=== PATIENT | female | born 1980 | race Caucasian/White ===

== ENCOUNTER 2020-07-20 09:11 | Outpatient (REF) | payer MEDICARE, MEDICAID, SELFPAY ==
[2020-07-20 10:27] LABS: MANUAL DIFF FLAG NO
[2020-07-20 10:43] LABS: Basophils Percent Auto 0.4 % (0-2); Eosinophils Absolute Auto 0.1 X10*3/uL (0.0-0.4); Hematocrit 36.9 % (37-47); Hemoglobin 11.2 g/dl (12.0-16.0); Imm Gran Abs Auto 0.02 X10*3/uL (0.00-0.03); Imm Gran Pct Auto 0.3 % (0.0-0.4); Lymphocytes Absolute Auto 2.3 X10*3/uL (1.2-4.9); Lymphocytes Percent Auto 29.6 % (20-40); Mean Corpuscular HGB Conc 30.4 g/dl (31.0-35.0); Mean Corpuscular Hemoglobin 23.6 pg (27.0-33.0); Mean Corpuscular Volume 77.7 fL (80-98); Mean Platelet Volume 9.3 fL (9.4-12.3); Monocytes Absolute Auto 0.6 X10*3/uL (0.1-1.2); Monocytes Percent Auto 7.8 % (2-11); Neutrophils Absolute Auto 4.8 X10*3/uL (2.0-8.3); Neutrophils Percent Auto 60.9 % (45-73); Platelet Count 478 X10*3/uL (160-400); Red Blood Count 4.75 X10*6/uL (4.20-5.50); Red Cell Distribution Width 18.9 % (11.0-16.0); White Blood Count 7.8 X10*3/uL (4.8-10.8)
[2020-07-20 11:25] LABS: Thyroid Stimulating Hormone 2.48 uIU/mL (0.32-4.0)
== END 2020-07-20 09:12 | disposition home or self-care (01) ==
LOC: HO.LAB 09:11
PROVIDERS: Visit Provider Internal Medicine
DX: D50.9 Iron deficiency anemia, unspecified (principal); E03.9 Hypothyroidism, unspecified
CPT/HCPCS: 36415; 84443; 85025

== ENCOUNTER 2020-07-22 13:41 | Emergency (ER) | payer MEDICARE, MEDICAID, SELFPAY ==
[2020-07-22 14:49] VITALS: BP 132/68; PULSE 91; RESP 16; TEMP 36.6; O2SAT 100; BMI 35.6
[2020-07-22 15:09] LABS: Glucose Urine UA NEG (NEG); Leukocyte Esterase Urine 3+ (NEG); Nitrite Urine NEG (NEG); Urine Blood 1+ (NEG); Urine Ketones NEG (NEG); Urine Protein NEG (NEG-TRACE)
[2020-07-22 15:12] LABS: Appearance Urine CLEAR; Color Urine YELLOW
[2020-07-22 15:25] LABS: RBC Urine 0-2 /HPF (0)
[2020-07-22 15:26] LABS: Bacteria Urine 2+ /LPF; Squamous Epithelial Cell Urine 2+ /LPF
[2020-07-22 16:40] VITALS: BP 125/79; PULSE 82; RESP 16; TEMP 36.7; O2SAT 96
--- NOTE | 2020-07-22 16:48 | CT_ITS ---
EXAMINATION: CT ABDOMEN AND PELVIS WITH CONTRAST CLINICAL INFORMATION: Left upper quadrant pain status post gastric banding surgery COMPARISON: 07/18/2017 TECHNIQUE: Multidetector volumetric images were obtained from the superior aspect of the liver through the pubic symphysis following administration 85 mL of Omnipaque 350 intravenous contrast. Sagittal and coronal reformatted images were obtained on the technologist's workstation. Oral contrast: No This CT examination was performed using dose optimization techniques as appropriate, variously including the following: *Automated exposure control *Adjustment of mA and/or kV according to patient size (this includes techniques or standardized protocols for targeted exams where dose is matched to indication/reason for exam; i.e. extremities or head) *Use of iterative reconstruction technique DLP: 1146 mGy-cm FINDINGS: LUNG BASES: The visualized lung bases are unremarkable. LIVER, GALLBLADDER, AND BILIARY TREE: Changes of diffuse hepatic steatosis without focal abnormality. No biliary dilatation. Numerous gallstones within the gallbladder lumen without acute inflammatory changes. PANCREAS: Unremarkable. SPLEEN: Unremarkable. ADRENAL GLANDS: Unremarkable. KIDNEYS AND URETERS: The kidneys are normal in size, shape, and attenuation. No hydronephrosis, hydroureter, or calculi seen. No perinephric stranding. BLADDER: Unremarkable. GASTROINTESTINAL TRACT: Vertical banding gastroplasty changes. No discrete lesion. Gastrojejunostomy appears satisfactory. No obstruction or fluid collection. ABDOMINAL WALL: No significant hernia is appreciated. LYMPH NODES: Normal. VASCULAR: Unremarkable. PELVIC VISCERA: Large masslike expansion of the cervix extending to the lower uterine segment measuring up to at least 6.5 x 5.1 cm. No gross parametrial extension. OSSEOUS STRUCTURES: Unremarkable. CT/CT abdomen pelvis w con IMPRESSION: 1. Satisfactory postsurgical changes status post gastric bypass surgery. 2. Markedly abnormal appearance of the cervix which may be indicative of a cervical mass including carcinoma. TUBE DRAW HELPER assessment is indicated.
--- NOTE | 2020-07-22 16:49 | ED_ITS ---
HPI - Abdominal Pain General Chief Complaint: Abdominal Pain Stated Complaint: left side pain Time Seen by Provider: 07/22/20 16:33 Source: patient Mode of arrival: ambulatory Limitations: no limitations History of Present Illness HPI narrative: Patient comes emergency room complaining of left upper quadrant pain for 2 days. Patient states the pain started suddenly, sharp, nonradiating. Patient denies burning sensation. Patient had gastric pain and surgery done at [facility] in April 2020. Patient complaining of nausea, no vomiting or diarrhea, no fever MD elicited complaint: abdominal pain Related Data Previous Rx's Medication Instructions Recorded ondansetron HCl [Zofran] 4 mg PO Q6H PRN #14 tab 07/22/20 Allergies Allergy/AdvReac Type Severity Reaction Status Date / Time Penicillins Allergy Mild HIVES Verified 07/22/20 14:55 naproxen [NAPROXEN] Allergy Unknown BLEEDING Verified 07/22/20 14:55 penicillin V Allergy Unknown Hives Verified 07/22/20 14:55 Review of Systems Review of Systems Constitutional : No Weight loss, No Fever, No Chills, No Night Sweats, No Fatigue, No Malaise ENT/Mouth : No Hearing loss, No Ear Pain, No Nasal Congestion, No Sinus Pain, No Hoarseness, No sore throat, No Rhinorrhea, No Swallowing Difficulty Eyes: No Eye Pain, No Swelling, No Redness, No Foreign Body, No Discharge, No Vision Changes Cardiovascular : No Chest Pain, No SOB, No Dyspnea on Exertion, No Orthopnea, No Edema, No Palpitations Respiratory : No Cough, No Sputum, No Wheezing, No Smoke Exposure, No Dyspnea Gastrointestinal : No Nausea, No Vomiting, No Diarrhea, No Constipation, No abdominal Pain, No Hematochezia, No Melena Genitourinary : no irregular bleeding, No Dysuria, No Urinary Frequency, No Hematuria, No Urinary Incontinence, No Urgency, No Flank Pain, No Urinary Flow Changes, No Hesitancy Musculoskeletal : No joint pain, No Myalgias, No Joint Swelling Skin : No Skin Lesions, No rash Neuro : No Weakness, No Numbness, No Paresthesias, No Loss of Consciousness, No Dizziness, No Headache Psych : No Anxiety/Panic, No Depression, No SI/HI/AH/VH, No Social Issues, Heme/Lymph: No Bruising, No Bleeding,No Lymphadenopathy Endocrine : No Polyuria, No Polydipsia, No Temperature Intolerance Physical Exam Vital Signs: Vital Signs: Last Vital Signs Temp 98.1 F 07/22/20 16:40 Pulse 82 07/22/20 16:40 Resp 16 07/22/20 16:40 BP 125/79 07/22/20 16:40 Pulse Ox 96 07/22/20 16:40 Body Mass Index 35.6 Appearance: Alert. Oriented X3. No acute distress. Eyes: Pupils equal, round and reactive to light. ENT: Pharynx normal. Neck: Normal inspection. Neck supple. No lymph nodes noted. No crepitus CVS: Normal heart rate and rhythm. Pulses normal. Normal S1 and S2 Respiratory: No respiratory distress. Breath sounds normal. No Wheezing. No rales Abdomen: Soft and nontender. No rigidity. No distention. good BS x4 : Cervix appears normal, there is a large blood clot in the cervical oz Skin: Skin warm and dry. Normal skin color. Normal skin turgor. Extremities: No lower extremity edema. No lower extremity edema. No Lacerations. No Rash Neuro: Oriented X 3. No motor deficit. No sensory deficit. Moving all extermities. No slurred speech. Course Course Course Narrative: I discussed with the patient that on CT scan it was visualized that there was an abnormal masslike expansion in her cervix going into her uterus. Patient states she had Pap smear approximately 6 months ago, she was told that she tested positive for HPV. This is concerning that he may be an aggressive HPV strain, I discussed with the patient that she needs to follow up with OBGYN, On cervical exam, there was a large blood clot in the cervix, it was attempted to be removed with ring forceps. The sample obtained but it may be inaccurate due to the presence of the blood clot. Cultures and HPV was obtained. Patient states that she is at the end of her menstrual period. There is a possibility, that the mass like structure found in the cervix, may be a clot from residual menstrual blood/mucus. Patient understands the importance to follow-up with OBGYN as soon as possible. Patient instructed to call Dr. Barrera's office tomorrow to schedule an appointment MDM - Abdominal Pain Lab Data Result diagrams: 07/22/20 17:01 07/22/20 17:01 Labs: Lab Results 07/22/20 07/22/20 07/22/20 Range/Units 15:02 17:01 17:01 WBC 9.1 (4.8-10.8) X10*3/uL RBC 4.75 (4.20-5.50) X10*6/uL Hgb 11.4 L (12.0-16.0) g/dl Hct 36.8 L (37-47) % MCV 77.5 L (80-98) fL MCH 24.0 L (27.0-33.0) pg MCHC 31.0 (31.0-35.0) g/dl RDW 19.2 H (11.0-16.0) % Plt Count 464 H (160-400) X10*3/uL MPV 9.2 L (9.4-12.3) fL Immature Gran % (Auto) 0.1 (0.0-0.4) % Neut % (Auto) 66.1 (45-73) % Lymph % (Auto) 26.2 (20-40) % [place] % (Auto) 6.4 (2-11) % Eos % (Auto) 0.9 (0-4) % Baso % (Auto) 0.3 (0-2) % Lymph # (Auto) 2.4 (1.2-4.9) X10*3/uL [place] # (Auto) 0.6 (0.1-1.2) X10*3/uL Eos # (Auto) 0.1 (0.0-0.4) X10*3/uL Baso # (Auto) 0.0 (0.0-0.2) X10*3/uL Abs Immat Gran (auto) 0.01 (0.00-0.03) X10*3/uL Absolute Neuts (auto) 6.0 (2.0-8.3) X10*3/uL Absolute Nucleated RBC 0.000 (0.0-0.012) X10*3/uL Nucleated RBC % (auto) 0.0 (0.0-0.2) /100WBC Sodium 141 (135-145) mmol/L Potassium 4.3 (3.3-5.1) mmol/l Chloride 105 (96-108) mmol/L Carbon Dioxide 26 (22-29) mmol/L Anion Gap 14 (12-20) BUN 8 L (9-16) mg/dL Creatinine 0.66 (0.5-1.4) mg/dL Estim Creat Clear Calc 152.2 Estimated GFR > 60 Random Glucose 89 (60-115) mg/dL Calcium 9.1 (8.4-10.2) mg/dL Total Bilirubin 0.3 (0.0-1.0) mg/dL Direct Bilirubin 0.3 (0.0-0.5) mg/dL AST 19 (5-31) U/L ALT 18 (0-31) U/L Alkaline Phosphatase 128 H (39-117) U/L Total Protein 6.6 (6.5-8.0) g/dL Albumin 4.1 (3.5-5.0) g/dL Lipase 12 (8-78) U/L Urine Color YELLOW Urine Appearance CLEAR Urine pH 6.0 (5.0-8.0) Ur Specific [place] 1.020 (1.005-1.025) Urine Protein NEG (NEG-TRACE) MG/DL Urine Glucose (UA) NEG (NEG) MG/DL Urine Ketones NEG (NEG) MG/DL Urine Blood 1+ H (NEG) Urine Nitrite NEG (NEG) Ur Leukocyte Esterase 3+ H (NEG) Urine RBC 0-2 (0) /HPF Urine WBC 10-14 H (0-4) /HPF Ur Squamous Epith Cells 2+ /LPF Urine Bacteria 2+ /LPF Urine Test (NEGATIVE) 07/22/20 Range/Units 17:03 WBC (4.8-10.8) X10*3/uL RBC (4.20-5.50) X10*6/uL Hgb (12.0-16.0) g/dl Hct (37-47) % MCV (80-98) fL MCH (27.0-33.0) pg MCHC (31.0-35.0) g/dl RDW (11.0-16.0) % Plt Count (160-400) X10*3/uL MPV (9.4-12.3) fL Immature Gran % (Auto) (0.0-0.4) % Neut % (Auto) (45-73) % Lymph % (Auto) (20-40) % [place] % (Auto) (2-11) % Eos % (Auto) (0-4) % Baso % (Auto) (0-2) % Lymph # (Auto) (1.2-4.9) X10*3/uL [place] # (Auto) (0.1-1.2) X10*3/uL Eos # (Auto) (0.0-0.4) X10*3/uL Baso # (Auto) (0.0-0.2) X10*3/uL Abs Immat Gran (auto) (0.00-0.03) X10*3/uL Absolute Neuts (auto) (2.0-8.3) X10*3/uL Absolute Nucleated RBC (0.0-0.012) X10*3/uL Nucleated RBC % (auto) (0.0-0.2) /100WBC Sodium (135-145) mmol/L Potassium (3.3-5.1) mmol/l Chloride (96-108) mmol/L Carbon Dioxide (22-29) mmol/L Anion Gap (12-20) BUN (9-16) mg/dL Creatinine (0.5-1.4) mg/dL Estim Creat Clear Calc Estimated GFR Random Glucose (60-115) mg/dL Calcium (8.4-10.2) mg/dL Total Bilirubin (0.0-1.0) mg/dL Direct Bilirubin (0.0-0.5) mg/dL AST (5-31) U/L ALT (0-31) U/L Alkaline Phosphatase (39-117) U/L Total Protein (6.5-8.0) g/dL Albumin (3.5-5.0) g/dL Lipase (8-78) U/L Urine Color Cancelled Urine Appearance Cancelled Urine pH Cancelled (5.0-8.0) Ur Specific [place] Cancelled (1.005-1.025) Urine Protein Cancelled (NEG-TRACE) MG/DL Urine Glucose (UA) Cancelled (NEG) MG/DL Urine Ketones Cancelled (NEG) MG/DL Urine Blood Cancelled (NEG) Urine Nitrite Cancelled (NEG) Ur Leukocyte Esterase Cancelled (NEG) Urine RBC (0) /HPF Urine WBC (0-4) /HPF Ur Squamous Epith Cells /LPF Urine Bacteria /LPF Urine Test NEGATIVE (NEGATIVE) Imaging Data CT scan - abdomen: Radiologist's impression: LUNG BASES: The visualized lung bases are unremarkable. LIVER, GALLBLADDER, AND BILIARY TREE: Changes of diffuse hepatic steatosis without focal abnormality. No biliary dilatation. Numerous gallstones within the gallbladder lumen without acute inflammatory changes. PANCREAS: Unremarkable. SPLEEN: Unremarkable. ADRENAL GLANDS: Unremarkable. KIDNEYS AND URETERS: The kidneys are normal in size, shape, and attenuation. No hydronephrosis, hydroureter, or calculi seen. No perinephric stranding. BLADDER: Unremarkable. GASTROINTESTINAL TRACT: Vertical banding gastroplasty changes. No discrete lesion. Gastrojejunostomy appears satisfactory. No obstruction or fluid collection. ABDOMINAL WALL: No significant hernia is appreciated. LYMPH NODES: Normal. VASCULAR: Unremarkable. PELVIC VISCERA: Large masslike expansion of the cervix extending to the lower uterine segment measuring up to at least 6.5 x 5.1 cm. No gross parametrial extension. OSSEOUS STRUCTURES: Unremarkable. CT/CT abdomen pelvis w con IMPRESSION: 1. Satisfactory postsurgical changes status post gastric bypass surgery. 2. Markedly abnormal appearance of the cervix which may be indicative of a cervical mass including carcinoma. BINDING BENCH WORKER assessment is indicated. Discharge Plan Discharge Clinical Impression: Abdominal pain, Cervical mass Patient Disposition: Home, Self-Care Instructions: Abdominal Pain (ED) Additional Instructions: Please follow-up with Dr. Barrera. Please call his office tomorrow to schedule an appointment. Please also follow-up with your gastric sleeve surgeon. Please follow-up with your primary care physician tomorrow. If you have any worsening or new symptoms, please return to the emergency room or call 911 Prescriptions: New ondansetron HCl [Zofran] 4 mg tablet 4 mg PO Q6H PRN (Reason: nausea and vomiting) Qty: 14 RF: 0 Referrals: Abhinav Barrera MD [Physician] - 07/23/20 9:00 am [facility] Past Medical History Medical History (Updated 07/22/20 @ 19:37 by Jewels Segal MD) delivery delivered Surgical History (Updated 07/22/20 @ 14:53 by Joceline Pedro) Gastric bypass status for obesity Tubal ligation status Social History Social History Alcohol intake: never Smoking Status: Never smoker Use of substances other than those prescribed or required for medical reasons: No Advance Directives: No Advance Directives Information Provided: Yes
[2020-07-22] MEDS: ondansetron HCL 4 MG/2 ML VIAL IVPUSH (17:07)
[2020-07-22 17:08] LABS: MANUAL DIFF FLAG NO
[2020-07-22 17:10] LABS: Basophils Percent Auto 0.3 % (0-2); Eosinophils Absolute Auto 0.1 X10*3/uL (0.0-0.4); Eosinophils Percent Auto 0.9 % (0-4); Hematocrit 36.8 % (37-47); Hemoglobin 11.4 g/dl (12.0-16.0); Imm Gran Abs Auto 0.01 X10*3/uL (0.00-0.03); Imm Gran Pct Auto 0.1 % (0.0-0.4); Lymphocytes Absolute Auto 2.4 X10*3/uL (1.2-4.9); Lymphocytes Percent Auto 26.2 % (20-40); Mean Corpuscular Volume 77.5 fL (80-98); Mean Platelet Volume 9.2 fL (9.4-12.3); Monocytes Absolute Auto 0.6 X10*3/uL (0.1-1.2); Monocytes Percent Auto 6.4 % (2-11); Neutrophils Percent Auto 66.1 % (45-73); Platelet Count 464 X10*3/uL (160-400); Red Blood Count 4.75 X10*6/uL (4.20-5.50); Red Cell Distribution Width 19.2 % (11.0-16.0); White Blood Count 9.1 X10*3/uL (4.8-10.8)
[2020-07-22 17:25] LABS: Urine Pregnancy NEGATIVE (NEGATIVE)
[2020-07-22 17:26] LABS: UPreg QC Valid YES
[2020-07-22 17:37] LABS: Alanine Aminotransferase 18 U/L (0-31); Albumin Level 4.1 g/dL (3.5-5.0); Alkaline Phosphatase 128 U/L (39-117); Anion Gap 14 (12-20); Aspartate Amino Transferase 19 U/L (5-31); Bilirubin Direct 0.3 mg/dL (0.0-0.5); Bilirubin Total 0.3 mg/dL (0.0-1.0); Blood Urea Nitrogen 8 mg/dL (9-16); Calcium 9.1 mg/dL (8.4-10.2); Carbon Dioxide 26 mmol/L (22-29); Chloride 105 mmol/L (96-108); Creatinine Clr Calc Pharmacy 152.2; Estimated Glomerular Filt Rate > 60; Glucose Random 89 mg/dL (60-115); Lipase 12 U/L (8-78); Potassium 4.3 mmol/l (3.3-5.1); Sodium 141 mmol/L (135-145); Total Protein 6.6 g/dL (6.5-8.0)
[2020-07-22] MEDS: iohexoL 350 MG/ML 100 ML INFUS..BTL IV (18:09)
[2020-07-22] MEDS: Diatrizoate Meglumine, Sodium 30 ML SOLUTION PO (18:10)
[2020-07-22] MEDS: Lidocaine HCl Viscous 2 % 15 ML SOLUTION MUCOUS MEM (18:52)
[2020-07-22] MEDS: Magnesium Hydrox/Alum Hydrox 30 ML ORAL.SUSP PO (18:52)
[2020-07-22] MEDS: Prochlorperazine Edisylate 10 MG/2 ML VIAL IVPUSH (18:52)
--- NOTE | 2020-07-22 19:10 | PC.NURSE ---
Medicated for pain and nausea. Restult of C explained to Pt by . in room completing a pelvic exam now.
[2020-07-23 08:51] LABS: CT PCR NOT DETECTED (Not Detect.); NG PCR NOT DETECTED (Not Detect.)
[2020-07-23 08:54] LABS: BV Int Neg Control Negative (Negative); BV Int Pos Control Positive (Positive)
== END 2020-07-22 19:50 | disposition home or self-care (01) ==
PROVIDERS: Emergency Provider Emergency Medicine; PCP Internal Medicine
DX: R19.05 Periumbilic swelling, mass or lump (principal); R10.9 Unspecified abdominal pain; R11.0 Nausea; Z98.84 Bariatric surgery status; Z79.899 Other long term (current) drug therapy
CPT/HCPCS: 36415; 74177; 80048; 80076; 81001; 81025; 83690; 85025; 87086; 87480; 87491; 87510; 87591; 87624; 87660; 96374; 96375; 99284; J2405; Q9967

== ENCOUNTER 2020-07-29 06:03 | Emergency (ER) | payer MEDICARE, MEDICAID, SELFPAY ==
--- NOTE | 2020-07-29 | US_ITS ---
EXAMINATION: ULTRASOUND OF THE PELVIS CLINICAL INFORMATION: Pelvic mass.. COMPARISON: CT of the abdomen and pelvis done on 07/22/2020.. TECHNIQUE: Transabdominal and transvaginal pelvic ultrasound. Doppler evaluation including arterial as well as venous spectral Doppler waveforms and color Doppler were performed. FINDINGS: The uterus measures 11.3 x 6.2 x 6.3 cm. Corresponding to the prior CT study dated 07/22/2020, there is indeed a large heterogeneous solid hypervascular mass identified in the cervix, measures 5.9 x 5.5 x 4.5 cm. The endometrial thickness measures 0.9 cm. The ovaries bilaterally are visualized and appear normal, with the right ovary measuring 3.9 x 2.9 x 3.0 cm, volume 17.8 mL and the left ovary measuring 2.5 x 2.0 x 2.0 cm., volume of 5.8 mL. No adnexal mass or free fluid collection seen. A transvaginal study was performed in addition to the transabdominal study which did not yield an adequate examination of the uterus and ovaries due to superimposed distended gas-filled loops of bowel. US/US transvaginal IMPRESSION: 1. Concordant with prior CT study dated 07/22/2020, there is indeed a large heterogeneous solid 5.9 cm maximum dimension mass identified in the cervix. 2. Normal endometrial stripe and morphologically normal-appearing bilateral ovaries.
[2020-07-29 06:10] VITALS: BP 124/78; PULSE 81; RESP 16; TEMP 36.4; O2SAT 95; BMI 35.4
--- NOTE | 2020-07-29 07:04 | ED.ABDPAIN ---
HPI - Abdominal Pain General Chief Complaint: Abdominal Pain Stated Complaint: abd pain Time Seen by Provider: 07/29/20 07:04 Source: patient Mode of arrival: ambulatory Limitations: no limitations History of Present Illness HPI narrative: Patient is status post gastric sleeve surgery with revision was seen here on 07/22 for left-sided pain CT scan showed normal bowels but 6 x 5 cm mass at the cervix. Patient urine showed wbc's and request wrist but culture was negative and patient was not given any antibiotics patient comes here as pain continues with nausea pain is localized mostly in left upper quadrant no flank pain no fever no chills no urinary complaints no significant pelvic pain patient plan to see quality control engineering technician tomorrow patient been eating normal with normal bowel movements MD elicited complaint: abdominal pain Pertinent past history: none Onset (ago): week(s) (2) Pain Consistency: constant Location: LUQ Severity: mild Quality: dull Radiation: none Migration to: no migration Exacerbating factors: nothing Relieving factors: nothing Associated symptoms: nausea Related Data Previous Rx's Medication Instructions Recorded ondansetron HCl [Zofran] 4 mg PO Q6H PRN #14 tab 07/22/20 Allergies Allergy/AdvReac Type Severity Reaction Status Date / Time Penicillins Allergy Mild HIVES Verified 07/22/20 14:55 naproxen [NAPROXEN] Allergy Unknown BLEEDING Verified 07/22/20 14:55 penicillin V Allergy Unknown Hives Verified 07/22/20 14:55 Review of Systems Review of Systems Constitutional : No Weight loss, No Fever, No Chills ENT/Mouth : No sore throat, No Rhinorrhea Eyes: No Eye Pain, No Swelling Cardiovascular : No Chest Pain, no palpitations Respiratory : No Cough, No Sputum, no shortness of breath Gastrointestinal : + Nausea, No Vomiting, No Diarrhea, + abdominal Pain, no black stools Genitourinary : No Dysuria, No Urinary Frequency Musculoskeletal : No joint pain, No Myalgias, No Joint Swelling Skin : No Skin Lesions, No rash Neuro : No Weakness, No Numbness, No Dizziness, No Headache Psych : No Anxiety/Panic, No Depression Heme/Lymph: No Bruising, No Lymphadenopathy Endocrine : No Polyuria, No Polydipsia All other systems reviewed and are negative Physical Exam Vital Signs: Vital Signs: Last Vital Signs Temp 97.5 F 07/29/20 06:10 Pulse 81 07/29/20 06:10 Resp 16 07/29/20 06:10 BP 124/78 07/29/20 06:10 Pulse Ox 95 07/29/20 06:10 Body Mass Index 35.4 Appearance: Alert. Oriented X3. No acute distress. Eyes: Pupils equal, round and reactive to light. ENT: Pharynx normal. Neck: Normal inspection. Neck supple. CVS: Normal heart rate and rhythm. Pulses normal. Respiratory: No respiratory distress. Breath sounds normal. Abdomen: Soft L UQ mild tenderness, Bowel sounds are present, no mass palpable, no CVA tenderness Skin: Skin warm and dry. Normal skin color. Normal skin turgor. Extremities: No lower extremity edema. Neuro: Oriented X 3. No motor deficit. No sensory deficit. Course Course Course Narrative: Patient with nonspecific left upper quadrant pain urine shows bacteria although culture was negative last time and patient does not have symptoms of urinary tract infection when has significant leuko Estrace and bacteria will give a course of Cipro. Patient advised to follow-up with quality control engineering technician tomorrow as scheduled for growth on the cervix MDM - Abdominal Pain Lab Data Labs: Lab Results 07/29/20 Range/Units 08:26 Urine Color YELLOW Urine Appearance CLOUDY Urine pH 6.0 (5.0-8.0) Ur Specific [place] 1.025 (1.005-1.025) Urine Protein TRACE (NEG-TRACE) MG/DL Urine Glucose (UA) NEG (NEG) MG/DL Urine Ketones NEG (NEG) MG/DL Urine Blood 3+ H (NEG) Urine Nitrite NEG (NEG) Ur Leukocyte Esterase 1+ H (NEG) Urine RBC 1-4 (0) /HPF Urine WBC 10-14 H (0-4) /HPF Ur Squamous Epith Cells 3+ /LPF Calcium Oxalate Crystal 3+ /LPF Urine Bacteria 2+ /LPF Urine Mucus 1+ /LPF Discharge Plan Discharge Prescriptions: No Action ondansetron HCl [Zofran] 4 mg tablet 4 mg PO Q6H PRN (Reason: nausea and vomiting) Qty: 14 RF: 0 PMFSH Past Medical History Medical History delivery delivered Surgical History Gastric bypass status for obesity Tubal ligation status Social History Social History Alcohol intake: never Smoking Status: Never smoker Advance Directives: No Advance Directives Information Provided: No
--- NOTE | 2020-07-29 07:17 | US_ITS ---
EXAMINATION: ULTRASOUND OF THE PELVIS CLINICAL INFORMATION: Pelvic mass.. COMPARISON: CT of the abdomen and pelvis done on 07/22/2020.. TECHNIQUE: Transabdominal and transvaginal pelvic ultrasound. Doppler evaluation including arterial as well as venous spectral Doppler waveforms and color Doppler were performed. FINDINGS: The uterus measures 11.3 x 6.2 x 6.3 cm. Corresponding to the prior CT study dated 07/22/2020, there is indeed a large heterogeneous solid hypervascular mass identified in the cervix, measures 5.9 x 5.5 x 4.5 cm. The endometrial thickness measures 0.9 cm. The ovaries bilaterally are visualized and appear normal, with the right ovary measuring 3.9 x 2.9 x 3.0 cm, volume 17.8 mL and the left ovary measuring 2.5 x 2.0 x 2.0 cm., volume of 5.8 mL. No adnexal mass or free fluid collection seen. A transvaginal study was performed in addition to the transabdominal study which did not yield an adequate examination of the uterus and ovaries due to superimposed distended gas-filled loops of bowel. US/US pelvic complete IMPRESSION: 1. Concordant with prior CT study dated 07/22/2020, there is indeed a large heterogeneous solid 5.9 cm maximum dimension mass identified in the cervix. 2. Normal endometrial stripe and morphologically normal-appearing bilateral ovaries.
--- NOTE | 2020-07-29 07:47 | PC.NURSE ---
pt currently in ultrasound
[2020-07-29 08:34] LABS: Glucose Urine UA NEG (NEG); Leukocyte Esterase Urine 1+ (NEG); Nitrite Urine NEG (NEG); Specific Gravity - Urine 1.025 (1.005-1.025); UACC Culture Trigger YES; Urine Blood 3+ (NEG); Urine Ketones NEG (NEG); Urine Protein TRACE MG/DL (NEG-TRACE)
[2020-07-29 08:36] LABS: Appearance Urine CLOUDY; Color Urine YELLOW
[2020-07-29 08:43] LABS: Bacteria Urine 2+ /LPF; Calcium Oxalate Crystals Urine 3+ /LPF; Mucus Urine 1+ /LPF; Squamous Epithelial Cell Urine 3+ /LPF
[2020-07-29] MEDS: levoFLOXacin 500 MG TABLET PO (09:20)
== END 2020-07-29 09:27 | disposition home or self-care (01) ==
PROVIDERS: Emergency Provider Internal Medicine; PCP Internal Medicine
DX: R10.12 Left upper quadrant pain (principal); R11.2 Nausea with vomiting, unspecified; Z98.84 Bariatric surgery status; Z79.899 Other long term (current) drug therapy
CPT/HCPCS: 76830; 76856; 81001; 81003; 87086; 99283; 99284

== ENCOUNTER 2020-07-31 22:10 | Emergency (ER) | payer MEDICARE, MEDICAID, SELFPAY ==
[2020-07-31 23:16] VITALS: BP 117/78; PULSE 94; RESP 16; TEMP 36.6; O2SAT 97; BMI 35.4
--- NOTE | 2020-07-31 23:30 | PC.NURSE ---
PT TO ROOM WITH C/O CHEST PAIN . PT DENIES ANY OTHER COMPLAINTS. PT ALERT, RESPIRATIONS N/L. SKIN W/[place]. IN ROOM FOR EVAL.
[2020-08-01] VITALS: PULSE 91; RESP 18; O2SAT 97
--- NOTE | 2020-08-01 00:05 | PC.NURSE ---
IV PLACED TO LAC, LABS DRAWN TO LAB. NS UP AND RUNNING W/O, SITE INTACT.
--- NOTE | 2020-08-01 00:25 | PC.NURSE ---
PT URINATED IN BED WHEN USING THE URINAL. PT CLEANED UP AND CLEAN LINENS APPLIED AND PT MOVED TO HOSPITAL BED FOR COMFORT. VS OBTAINED AND WNL. PT ALERT, RESPIRATIONS EASY, N/L. SKIN W/D. WILL CONTINUE TO MONITOR PT. PT AWAITING FOR BED ASSIGNMENT.
--- NOTE | 2020-08-01 00:34 | XR_ITS ---
EXAMINATION: XR CHEST CLINICAL INFORMATION: Chest pain COMPARISON: 09/14/2018 TECHNIQUE: Frontal view of the chest was obtained. FINDINGS: No significant abnormality is noted involving the heart, lungs, mediastinum, bony thorax or soft tissues. Again seen are degenerative changes in the spine with scoliosis convex to the right. XR/XR chest 1V IMPRESSION: No acute intrathoracic disease.
--- NOTE | 2020-08-01 00:34 | ED_ITS ---
HPI - General Adult General Chief complaint: General Medical Stated complaint: CHEST PRESSURE Time Seen by Provider: 08/01/20 00:33 Source: patient Mode of arrival: ambulatory Limitations: no limitations History of Present Illness HPI narrative: 40-year-old female presented with mid chest pain that started 2 hours ago, described the pain as a sudden sharp stabbing pain moderate in intensity (5/10). in the mid of the chest radiated to the back, pain is constant for the past 2 hours, deep breath makes it worse, nothing make it better. Patient had no chest pain in the past. No other associated symptoms. Patient declined recent travel, no lower extremity swelling or pain, no personal or family history of DVT/PE, no personal family history of coronary artery disease at young age. Related Data Previous Rx's Medication Instructions Recorded ondansetron HCl [Zofran] 4 mg PO Q6H PRN #14 tab 07/22/20 ciprofloxacin HCl 500 mg PO BID #10 tab 07/29/20 Allergies Allergy/AdvReac Type Severity Reaction Status Date / Time Penicillins Allergy Mild HIVES Verified 07/22/20 14:55 naproxen [NAPROXEN] Allergy Unknown BLEEDING Verified 07/22/20 14:55 penicillin V Allergy Unknown Hives Verified 07/22/20 14:55 Review of Systems Review of Systems: All other systems are reviewed and are negative Constitutional: Reports as per HPI and Reports no additional constitutional complaints Eyes: Reports as per HPI and Reports no additional eye complaints Reports system reviewed and no additional complaints, except as documented Cardiovascular: Reports as per HPI and Reports no additional cardiovascular complaints Respiratory: Reports as per HPI and Reports no additional respiratory complaints Gastrointestinal: Reports as per HPI and Reports no additional gastrointestinal complaints Genitourinary: Reports no additional female genitourinary complaints Musculoskeletal: Reports no additional musculoskeletal complaints Skin/Breast: Reports system reviewed and no additional complaints, except as docu Psychiatric: Reports no additional psychiatric complaints Endocrine: Reports no additional endocrine complaints Hematologic/Lymphatic: Reports no additional hematologic/lymphatic complaints Allergic/Immunologic: Reports no additional allergic/immunologic complaints Reports system reviewed and no additional complaints, except as documented and Reports Abnormal speech present [facility] Past Medical History Medical History delivery delivered Surgical History Gastric bypass status for obesity Tubal ligation status Social History Social History Alcohol intake: never Smoking Status: Never smoker Advance Directives: No Physical Exam Vital Signs: Vital Signs: Last Vital Signs Temp 97.8 F 07/31/20 23:16 Pulse 80 08/01/20 02:00 Resp 18 08/01/20 02:00 BP 117/78 07/31/20 23:16 Pulse Ox 98 08/01/20 02:00 Body Mass Index 35.4 Vital signs have been reviewed as normal and appeared to be correct. Blood pressure normal. Heart rate normal. Respiration rate normal. Temperature normal. Oxygen saturation normal. Appearance: Alert. Oriented X3. No acute distress. Head: Normal external exam. Normocephalic. Atraumatic. No [place]arez signs noted. No raccoon eyes noted Eyes: PERRLA. EOMI. Conjunctiva and sclera normal. Eyelids normal. ENT: EAC normal. TM's Normal. Pharynx normal. Uvula midline. Moist mucous membranes. No trismus noted. No drooling noted. No muffled voice noted. Neck: Normal inspection. Neck supple. FROM. No adenopathy. Thyroid Normal. No meningeal signs. No neck mass noted. CVS: Normal heart rate and rhythm. Heart sound normal. No murmurs noted. Pulses normal throughout. Respiratory: No respiratory distress. Painless inspiration. Breath sounds normal. No wheezes/rales/rhonchi noted. Chest nontender. No accessory muscle usage noted or decreased air movement noted. Abdomen: Soft and nontender. Bowel sounds normal in all 4 quadrants. No distention noted. No organomegaly noted. No visible injury noted. Back: No CVA tenderness. Full range of motion noted. Skin: Skin warm and dry. Normal skin color. Normal skin turgor. No rashes/lesions/lacerations noted. Extremities: No lower extremity edema. Extremities exhibit normal range of motion. Extremities nontender. Neuro: Oriented X 3. No motor deficit. No sensory deficit. Reflexes normal. Course Course Course Narrative: Assessment and plan. 40-year-old female presented with chest pain before arrival, patient had unremarkable chest pain workup in the emergency department, patient with HEART score of 0, patient now feels better will discharge the patient to follow-up with PCP. Medical Decision Making Lab Data Lab results reviewed: Yes I reviewed the patient's lab results. Result diagrams: 08/01/20 00:57 08/01/20 00:57 Labs: Lab Results 08/01/20 08/01/20 08/01/20 Range/Units 00:48 00:57 00:57 WBC 9.2 (4.8-10.8) X10*3/uL RBC 4.56 (4.20-5.50) X10*6/uL Hgb 11.3 L (12.0-16.0) g/dl Hct 35.7 L (37-47) % MCV 78.3 L (80-98) fL MCH 24.8 L (27.0-33.0) pg MCHC 31.7 (31.0-35.0) g/dl RDW 18.8 H (11.0-16.0) % Plt Count 395 (160-400) X10*3/uL MPV 9.3 L (9.4-12.3) fL Immature Gran % (Auto) 0.2 (0.0-0.4) % Neut % (Auto) 58.9 (45-73) % Lymph % (Auto) 32.0 (20-40) % [place] % (Auto) 7.5 (2-11) % Eos % (Auto) 1.1 (0-4) % Baso % (Auto) 0.3 (0-2) % Lymph # (Auto) 3.0 (1.2-4.9) X10*3/uL [place] # (Auto) 0.7 (0.1-1.2) X10*3/uL Eos # (Auto) 0.1 (0.0-0.4) X10*3/uL Baso # (Auto) 0.0 (0.0-0.2) X10*3/uL Abs Immat Gran (auto) 0.02 (0.00-0.03) X10*3/uL Absolute Neuts (auto) 5.4 (2.0-8.3) X10*3/uL Absolute Nucleated RBC 0.000 (0.0-0.012) X10*3/uL Nucleated RBC % (auto) 0.0 (0.0-0.2) /100WBC D-Dimer < 200 NG/ML Sodium (135-145) mmol/L Potassium (3.3-5.1) mmol/l Chloride (96-108) mmol/L Carbon Dioxide (22-29) mmol/L Anion Gap (12-20) BUN (9-16) mg/dL Creatinine (0.5-1.4) mg/dL Estim Creat Clear Calc Estimated GFR Random Glucose (60-115) mg/dL Calcium (8.4-10.2) mg/dL Total Bilirubin (0.0-1.0) mg/dL Direct Bilirubin (0.0-0.5) mg/dL AST (5-31) U/L ALT (0-31) U/L Alkaline Phosphatase (39-117) U/L Troponin I High Sens (<3.5-17.0) ng/L Total Protein (6.5-8.0) g/dL Albumin (3.5-5.0) g/dL Lipase (8-78) U/L Urine Color YELLOW Urine Appearance CLEAR Urine pH 6.0 (5.0-8.0) Ur Specific [place] >= 1.030 H (1.005-1.025) Urine Protein NEG (NEG-TRACE) MG/DL Urine Glucose (UA) NEG (NEG) MG/DL Urine Ketones NEG (NEG) MG/DL Urine Blood NEG (NEG) Urine Nitrite NEG (NEG) Ur Leukocyte Esterase NEG (NEG) Urine Test NEGATIVE (NEGATIVE) 08/01/20 08/01/20 08/01/20 Range/Units 00:57 00:57 03:32 WBC (4.8-10.8) X10*3/uL RBC (4.20-5.50) X10*6/uL Hgb (12.0-16.0) g/dl Hct (37-47) % MCV (80-98) fL MCH (27.0-33.0) pg MCHC (31.0-35.0) g/dl RDW (11.0-16.0) % Plt Count (160-400) X10*3/uL MPV (9.4-12.3) fL Immature Gran % (Auto) (0.0-0.4) % Neut % (Auto) (45-73) % Lymph % (Auto) (20-40) % [place] % (Auto) (2-11) % Eos % (Auto) (0-4) % Baso % (Auto) (0-2) % Lymph # (Auto) (1.2-4.9) X10*3/uL [place] # (Auto) (0.1-1.2) X10*3/uL Eos # (Auto) (0.0-0.4) X10*3/uL Baso # (Auto) (0.0-0.2) X10*3/uL Abs Immat Gran (auto) (0.00-0.03) X10*3/uL Absolute Neuts (auto) (2.0-8.3) X10*3/uL Absolute Nucleated RBC (0.0-0.012) X10*3/uL Nucleated RBC % (auto) (0.0-0.2) /100WBC D-Dimer NG/ML Sodium 139 (135-145) mmol/L Potassium 3.8 (3.3-5.1) mmol/l Chloride 105 (96-108) mmol/L Carbon Dioxide 23 (22-29) mmol/L Anion Gap 15 (12-20) BUN 8 L (9-16) mg/dL Creatinine 0.69 (0.5-1.4) mg/dL Estim Creat Clear Calc 145.3 Estimated GFR > 60 Random Glucose 95 (60-115) mg/dL Calcium 8.8 (8.4-10.2) mg/dL Total Bilirubin 0.4 (0.0-1.0) mg/dL Direct Bilirubin < 0.2 (0.0-0.5) mg/dL AST 20 (5-31) U/L ALT 23 (0-31) U/L Alkaline Phosphatase 111 (39-117) U/L Troponin I High Sens < 3.5 < 3.5 (<3.5-17.0) ng/L Total Protein 6.4 L (6.5-8.0) g/dL Albumin 4.0 (3.5-5.0) g/dL Lipase 33 (8-78) U/L Urine Color Urine Appearance Urine pH (5.0-8.0) Ur Specific [place] (1.005-1.025) Urine Protein (NEG-TRACE) MG/DL Urine Glucose (UA) (NEG) MG/DL Urine Ketones (NEG) MG/DL Urine Blood (NEG) Urine Nitrite (NEG) Ur Leukocyte Esterase (NEG) Urine Test (NEGATIVE) Imaging Data Chest x-ray: Radiologist's impression: No acute intrathoracic disease. ECG Data Interpretation: Normal sinus rhythm at 80 beats per minutes, normal axis deviation, normal intervals, no ST-T changes. Discharge Plan Discharge Clinical Impression: Chest pain Qualifiers: Chest pain type: unspecified Qualified Code(s): R07.9 - Chest pain, unspecified Patient Disposition: Home, Self-Care Instructions: Chest Pain (ED) Prescriptions: No Action ondansetron HCl [Zofran] 4 mg tablet 4 mg PO Q6H PRN (Reason: nausea and vomiting) Qty: 14 RF: 0 ciprofloxacin HCl 500 mg tablet 500 mg PO BID Qty: 10 RF: 0 Referrals: Zaheer Madden MD [Primary Care Provider] - 2 days
[2020-08-01] MEDS: 0.9 % Sodium Chloride 1,000 ML 999 ML IVCONT (01:01)
[2020-08-01 01:08] LABS: MANUAL DIFF FLAG NO
[2020-08-01 01:20] LABS: Glucose Urine UA NEG (NEG); Leukocyte Esterase Urine NEG (NEG); Nitrite Urine NEG (NEG); Specific Gravity - Urine >= 1.030 (1.005-1.025); Urine Blood NEG (NEG); Urine Ketones NEG (NEG); Urine Protein NEG (NEG-TRACE)
[2020-08-01 01:22] LABS: Appearance Urine CLEAR; Color Urine YELLOW; UPreg QC Valid YES; Urine Pregnancy NEGATIVE (NEGATIVE)
[2020-08-01 01:32] LABS: Basophils Percent Auto 0.3 % (0-2); Eosinophils Absolute Auto 0.1 X10*3/uL (0.0-0.4); Eosinophils Percent Auto 1.1 % (0-4); Hematocrit 35.7 % (37-47); Hemoglobin 11.3 g/dl (12.0-16.0); Imm Gran Abs Auto 0.02 X10*3/uL (0.00-0.03); Imm Gran Pct Auto 0.2 % (0.0-0.4); Mean Corpuscular HGB Conc 31.7 g/dl (31.0-35.0); Mean Corpuscular Hemoglobin 24.8 pg (27.0-33.0); Mean Corpuscular Volume 78.3 fL (80-98); Mean Platelet Volume 9.3 fL (9.4-12.3); Monocytes Absolute Auto 0.7 X10*3/uL (0.1-1.2); Monocytes Percent Auto 7.5 % (2-11); Neutrophils Absolute Auto 5.4 X10*3/uL (2.0-8.3); Neutrophils Percent Auto 58.9 % (45-73); Platelet Count 395 X10*3/uL (160-400); Red Blood Count 4.56 X10*6/uL (4.20-5.50); Red Cell Distribution Width 18.8 % (11.0-16.0); White Blood Count 9.2 X10*3/uL (4.8-10.8)
[2020-08-01 01:39] LABS: D Dimer < 200 NG/ML
[2020-08-01 01:49] LABS: Troponin-I High Sensitivity < 3.5 ng/L (<3.5-17.0)
[2020-08-01 02:00] VITALS: PULSE 80; RESP 18; O2SAT 98
--- NOTE | 2020-08-01 02:59 | PC.NURSE ---
PT RESTING IN STRETCHER PLAYING A GAME ON HER PHONE. PT AWAITING FOR PENDING LABS. AWARE.
[2020-08-01 03:13] LABS: Alanine Aminotransferase 23 U/L (0-31); Alkaline Phosphatase 111 U/L (39-117); Anion Gap 15 (12-20); Aspartate Amino Transferase 20 U/L (5-31); Bilirubin Direct < 0.2 mg/dL (0.0-0.5); Bilirubin Total 0.4 mg/dL (0.0-1.0); Blood Urea Nitrogen 8 mg/dL (9-16); Calcium 8.8 mg/dL (8.4-10.2); Carbon Dioxide 23 mmol/L (22-29); Chloride 105 mmol/L (96-108); Creatinine Clr Calc Pharmacy 145.3; Estimated Glomerular Filt Rate > 60; Glucose Random 95 mg/dL (60-115); Lipase 33 U/L (8-78); Potassium 3.8 mmol/l (3.3-5.1); Sodium 139 mmol/L (135-145); Total Protein 6.4 g/dL (6.5-8.0)
--- NOTE | 2020-08-01 03:37 | PC.NURSE ---
2ND TROPONIN DRAWN TO LAB FOR EVAL. PT STATES IM FEELING NAUSEATED PT REQUESTING CRACKERS. PT AWAITING FOR PENDING LABS.
[2020-08-01 04:04] LABS: Troponin-I High Sensitivity < 3.5 ng/L (<3.5-17.0)
--- NOTE | 2020-08-01 04:45 | PC.NURSE ---
IV REMOVED INTACT. PT VERBALIZED U/S OF D/C INSTRUCTIONS AND LEFT ED AMB WITH STEADY EVEN GAIT TO WR.
--- NOTE | 2020-08-01 08:05 | ECG_ITS ---
Test Reason : CHEST PAIN Blood Pressure : / mmHG Vent. Rate : 080 BPM Atrial Rate : 080 BPM P-R Int : 156 ms QRS Dur : 082 ms QT Int : 400 ms P-R-T Axes : 005 028 025 degrees QTc Int : 461 ms Normal sinus rhythm Normal ECG When compared with ECG of 14-SEP-2018 21:24, No significant change was found Referred By: Andrea Carlin Electronically Signed By:Lucas Rudd
== END 2020-08-01 04:45 | disposition home or self-care (01) ==
PROVIDERS: Emergency Provider Emergency Medicine; PCP Internal Medicine
DX: R07.9 Chest pain, unspecified (principal); Z98.84 Bariatric surgery status
CPT/HCPCS: 36415; 71045; 80048; 80076; 81003; 81025; 83690; 84484; 85025; 85379; 93005; 96360; 99284

== ENCOUNTER 2020-10-22 04:05 | Emergency (ER) | payer MEDICARE, MEDICAID, SELFPAY ==
[2020-10-22 04:31] VITALS: BP 129/74; PULSE 72; RESP 18; TEMP 37; O2SAT 98; BMI 32.9
--- NOTE | 2020-10-22 04:48 | ED_ITS ---
HPI - Extremity Injury (Lower) General Chief Complaint: Extremity Injury, Lower Stated Complaint: BLISTER ON TOE Time Seen by Provider: 10/22/20 04:42 Source: patient Mode of arrival: ambulatory Limitations: no limitations History of Present Illness HPI Narrative: Patient comes to emergency room complaining of pain in the great toe on the right side. Two weeks ago patient had a pedicure, now the toe on 1 side hurts, looks swollen, red, tender to touch. Patient denies fever. Only 1 side of the toenail hurts Related Data Home Medications Medication Instructions Recorded Confirmed cholecalciferol (vitamin D3) 25 mcg PO DAILY 10/22/20 10/22/20 [Vitamin D3] doxepin 50 mg PO DAILY 10/22/20 10/22/20 ferrous sulfate 324 mg PO DAILY 10/22/20 10/22/20 lamotrigine 150 mg PO DAILY 10/22/20 10/22/20 multivitamin cap 10/22/20 olanzapine [Zyprexa] 20 mg PO DAILY 10/22/20 10/22/20 ondansetron 4 mg PO Q6H PRN 10/22/20 10/22/20 pantoprazole 40 mg PO DAILY 10/22/20 10/22/20 verapamil 40 mg PO DAILY 10/22/20 10/22/20 Previous Rx's Medication Instructions Recorded sulfamethoxazole-trimethoprim 1 tab PO BID #14 tab 10/22/20 [Bactrim DS] Allergies Allergy/AdvReac Type Severity Reaction Status Date / Time Penicillins Allergy Mild HIVES Verified 10/22/20 05:03 naproxen [NAPROXEN] Allergy Unknown BLEEDING Verified 10/22/20 05:03 penicillin V Allergy Unknown Hives Verified 10/22/20 05:03 Review of Systems 2 Review of Systems: Constitutional : No Weight loss, No Fever, No Chills, No Night Sweats, No Fatigue, No Malaise ENT/Mouth : No Hearing loss, No Ear Pain, No Nasal Congestion, No Sinus Pain, No Hoarseness, No sore throat, No Rhinorrhea, No Swallowing Difficulty Eyes: No Eye Pain, No Swelling, No Redness, No Foreign Body, No Discharge, No Vision Changes Cardiovascular : No Chest Pain, No SOB, No Dyspnea on Exertion, No Orthopnea, No Edema, No Palpitations Respiratory : No Cough, No Sputum, No Wheezing, No Smoke Exposure, No Dyspnea Gastrointestinal : No Nausea, No Vomiting, No Diarrhea, No Constipation, No abdominal Pain, No Hematochezia, No Melena Genitourinary : no irregular bleeding, No Dysuria, No Urinary Frequency, No Hematuria, No Urinary Incontinence, No Urgency, No Flank Pain, No Urinary Flow Changes, No Hesitancy Musculoskeletal : No joint pain, No Myalgias, No Joint Swelling Skin : Pain on the lateral aspect of the great toe and swelling and redness Neuro : No Weakness, No Numbness, No Paresthesias, No Loss of Consciousness, No Dizziness, No Headache Psych : No Anxiety/Panic, No Depression, No SI/HI/AH/VH, No Social Issues, Heme/Lymph: No Bruising, No Bleeding,No Lymphadenopathy Endocrine : No Polyuria, No Polydipsia, No Temperature Intolerance PMF Past Medical History Medical History delivery delivered Surgical History Gastric bypass status for obesity Tubal ligation status Social History Social History Alcohol intake: never Smoking Status: Never smoker Advance Directives: No Advance Directives Information Provided: No Physical Exam Vital Signs: Vital Signs: Last Vital Signs Temp 98.6 F 10/22/20 04:31 Pulse 72 10/22/20 04:31 Resp 18 10/22/20 04:31 BP 129/74 10/22/20 04:31 Pulse Ox 98 10/22/20 04:31 Body Mass Index 32.9 Appearance: Alert. Oriented X3. No acute distress. Eyes: Pupils equal, round and reactive to light. ENT: Pharynx normal. Neck: Normal inspection. Neck supple. No lymph nodes noted. No crepitus CVS: Normal heart rate and rhythm. Pulses normal. Normal S1 and S2 Respiratory: No respiratory distress. Breath sounds normal. No Wheezing. No rales Abdomen: Soft and nontender. No rigidity. No distention. good BS x4 Skin: Skin warm and dry. Paronychia on the right great toe lateral aspect and subungual hematoma, difficult to evaluate due to nail Kisw[place]ili, proximal aspect of nail has no nail Kisw[place]ili Extremities: No lower extremity edema. No lower extremity edema. No Lacerations. No Rash Neuro: Oriented X 3. No motor deficit. No sensory deficit. Moving all extermities. No slurred speech. Course Course Course Narrative: Patient was given a digital block with 2% lidocaine with no epinephrine. Patient tolerated well the block. The paronychia was drained, a 0.5 cm incision done lateral to the nail, scant amount of pus was drained, through the same incision, the subungual hematoma drained as well. I discussed with the patient that it is likely that she will lose her toenail. Patient given 1st dose of antibiotics in the emergency room, patient instructed to follow-up with her primary care physician Procedures Abscess I/D Site: foot (Paronychia on right great toe) Side (if applicable): right Local Anesthetic: lidocaine 2% Amount of anesthesia used (mL): 3 Technique: incised with blade Sent for culture/gram staining?: No Irrigation: No Packing used?: none Complications: pain Discharge Plan Discharge Clinical Impression: Paronychia, Subungual hematoma Patient Disposition: Home, Self-Care Instructions: Paronychia (ED) Additional Instructions: Please follow-up with your primary care physician tomorrow. If you have any worsening or new symptoms, please return to the emergency room or call 911 Prescriptions: New sulfamethoxazole-trimethoprim [Bactrim DS] 800-160 mg tablet 1 tab PO BID Qty: 14 RF: 0 No Action lamotrigine 150 mg Tablet 150 mg PO DAILY RF: 0 doxepin 50 mg Capsule 50 mg PO DAILY RF: 0 verapamil 40 mg Tablet 40 mg PO DAILY RF: 0 pantoprazole 40 mg Tablet,Delayed Release (Dr/Ec) 40 mg PO DAILY RF: 0 ondansetron 4 mg Tablet,Disintegrating 4 mg PO Q6H PRN (Reason: Nausea And Vomiting) RF: 0 multivitamin Capsule RF: 0 olanzapine [Zyprexa] 20 mg Tablet 20 mg PO DAILY RF: 0 cholecalciferol (vitamin D3) [Vitamin D3] 25 mcg (1,000 unit) Capsule 25 mcg PO DAILY RF: 0 ferrous sulfate 324 mg (65 mg iron) Tablet,Delayed Release (Dr/Ec) 324 mg PO DAILY RF: 0
[2020-10-22] MEDS: Lidocaine HCl 2 % MPF 5 ML VIAL INFILTRATI (05:02)
--- NOTE | 2020-10-22 05:38 | PC.NURSE ---
at bedside to drain right big toe hematoma. pt tolerated procedure well. toe wrapped in gauze and reinforced with gauze wrap. plan for PO antibiotics and discharge. pt aware of plan of care, no questions or concerns at this time.
== END 2020-10-22 05:48 | disposition home or self-care (01) ==
LOC: HO.ED 04:56
PROVIDERS: Emergency Provider Emergency Medicine; PCP Internal Medicine
DX: L03.031 Cellulitis of right toe (principal); S90.421A Blister (nonthermal), right great toe, initial encounter; M79.674 Pain in right toe(s); X58.XXXA Exposure to other specified factors, initial encounter; Y93.9 Activity, unspecified; Y92.9 Unspecified place or not applicable; Y99.9 Unspecified external cause status; Z98.84 Bariatric surgery status; Z79.899 Other long term (current) drug therapy
CPT/HCPCS: 10060; 99283; 99284

== ENCOUNTER 2020-11-05 04:14 | Emergency (ER) | payer MEDICARE, MEDICAID, SELFPAY ==
[2020-11-05 04:58] VITALS: BP 124/74; PULSE 90; RESP 16; O2SAT 99; BMI 33.6
--- NOTE | 2020-11-05 05:10 | ED.LOWEXIN ---
HPI - Extremity Injury (Lower) General Chief Complaint: Extremity Injury, Lower Stated Complaint: ? Toe Nail Infection Time Seen by Provider: 11/05/20 05:03 Source: patient Mode of arrival: ambulatory Limitations: no limitations History of Present Illness HPI Narrative: 40-year-old female who presents emergency department for evaluation of right great toe pain. The patient was seen in the emergency department on 10/22/2020 for a right great toe paronychia L abscess and subungual hematoma. The abscess and subungual hematoma was drained. The patient was treated with Bactrim and she states she completed the course of antibiotics. She states that over the last 1-2 days she has noticed increased pain in the right great toe and her right great toenail is nail lifted off the nail bed and is painful. She has not noticed any swelling or redness of the great toe. She denies fever, chills, fatigue or weakness. Related Data Home Medications Medication Instructions Recorded Confirmed cholecalciferol (vitamin D3) 25 mcg PO DAILY 10/22/20 10/22/20 [Vitamin D3] doxepin 50 mg PO DAILY 10/22/20 10/22/20 ferrous sulfate 324 mg PO DAILY 10/22/20 10/22/20 lamotrigine 150 mg PO DAILY 10/22/20 10/22/20 multivitamin cap 10/22/20 olanzapine [Zyprexa] 20 mg PO DAILY 10/22/20 10/22/20 ondansetron 4 mg PO Q6H PRN 10/22/20 10/22/20 pantoprazole 40 mg PO DAILY 10/22/20 10/22/20 verapamil 40 mg PO DAILY 10/22/20 10/22/20 Previous Rx's Medication Instructions Recorded sulfamethoxazole-trimethoprim 1 tab PO BID #14 tab 10/22/20 [Bactrim DS] Allergies Allergy/AdvReac Type Severity Reaction Status Date / Time Penicillins Allergy Mild HIVES Verified 10/22/20 05:03 naproxen [NAPROXEN] Allergy Unknown BLEEDING Verified 10/22/20 05:03 penicillin V Allergy Unknown Hives Verified 10/22/20 05:03 Review of Systems Review of Systems: Yes all other systems are reviewed and are negative PMFSH Past Medical History PMFSH Narrative: She denies tobacco, alcohol or drug use. Medical History delivery delivered Surgical History Gastric bypass status for obesity Tubal ligation status Social History Social History Alcohol intake: never Smoking Status: Never smoker Advance Directives: No Physical Exam Vital Signs: Vital Signs: Last Vital Signs Pulse 90 11/05/20 04:58 Resp 16 11/05/20 04:58 BP 124/74 11/05/20 04:58 Pulse Ox 99 11/05/20 04:58 Body Mass Index 33.6 Const: General: cooperative and healthy appearing Orientation/consciousness: oriented to person and oriented to place Limitations: no limitations HENMT: Head: Yes normal to inspection, Yes normocephalic and Yes atraumatic Resp: Effort & Inspection: normal respiratory effort Neuro: General: oriented to person and oriented to place Extrem: Other: The patient's right great toenail is lifted off the nail bed lateral but still medially, there is no purulent drainage noted. Course Course Course Narrative: 40-year-old female who presents emergency department for evaluation of right great toe pain, she was seen and treated in the ED 10/22/2020 for right great toe paronychia abscess and subungual hematoma. The patient's exam at this time revealed that the patient's toenail is partially avulsed most likely secondary to the subungual hematoma. The patient's right great toe was anesthetized with lidocaine using digital block and the toenail was removed. The underlying nail bed is intact and does not appear to be infected. There does appear to be a nail starting to grow back from the nail plate. The great toe nail bed was dressed with bacitracin and a gauze dressing, the patient was given verbal and printed instructions discharged home. Procedures Procedure Narrative Procedure Narrative: Right great toenail removal: I did discuss the toe nail removal procedure with the patient and she gave me informed verbal consent to proceed. The patient's toe was prepped with Betadine and then anesthetized with 1% lidocaine times 10 cc, digital block was used. After the toe was anesthetized, using a scalp all and hemostats I was able to remove the toenail with only minimal bleeding. The nail bed is covered with bacitracin and dressed with a gauze dressing. Patient was advised to remove the dressing in 24 hours and apply bacitracin twice a day for 1 week. She was advised to follow-up with PCP and return if there is any signs of infection. Discharge Plan Discharge Clinical Impression: Avulsed toenail Patient Disposition: Home, Self-Care Additional Instructions: Your toenail was removed. Apply bacitracin twice a day to the nail bed for 1 week to help prevent infection Keep the toenail cover with gauze or a bandage. Watch for signs of infection which would include increased pain, redness, swelling, drainage of pus or red streaks going away from the wound Take ibuprofen 200 mg pills, 3 pills every 6 hours as needed for pain. Take Tylenol (acetaminophen) 500 mg pills, 2 pills every 4 to 6 hours as needed for pain. Follow-up with your doctor in 2 days. Please return to the emergency department if your symptoms get worse or if you develop any symptoms that are concerning to you. Prescriptions: No Action lamotrigine 150 mg Tablet 150 mg PO DAILY RF: 0 doxepin 50 mg Capsule 50 mg PO DAILY RF: 0 verapamil 40 mg Tablet 40 mg PO DAILY RF: 0 pantoprazole 40 mg Tablet,Delayed Release (Dr/Ec) 40 mg PO DAILY RF: 0 ondansetron 4 mg Tablet,Disintegrating 4 mg PO Q6H PRN (Reason: Nausea And Vomiting) RF: 0 multivitamin Capsule RF: 0 olanzapine [Zyprexa] 20 mg Tablet 20 mg PO DAILY RF: 0 cholecalciferol (vitamin D3) [Vitamin D3] 25 mcg (1,000 unit) Capsule 25 mcg PO DAILY RF: 0 ferrous sulfate 324 mg (65 mg iron) Tablet,Delayed Release (Dr/Ec) 324 mg PO DAILY RF: 0 sulfamethoxazole-trimethoprim [Bactrim DS] 800-160 mg tablet 1 tab PO BID Qty: 14 RF: 0
[2020-11-05] MEDS: Lidocaine HCl 1 % MPF 5 ML VIAL 10 ML INFILTRATI (06:09)
[2020-11-05] MEDS: Bacitracin Oint 0.9 GM PACKET 1 APPL TOPICAL (06:09)
== END 2020-11-05 06:10 | disposition home or self-care (01) ==
PROVIDERS: Emergency Provider Emergency Medicine Emergency Medical Services; PCP Internal Medicine
DX: S91.201A Unspecified open wound of right great toe with damage to nail, initial encounter (principal); M79.671 Pain in right foot; X58.XXXA Exposure to other specified factors, initial encounter; Y93.9 Activity, unspecified; Y92.9 Unspecified place or not applicable; Y99.9 Unspecified external cause status; Z79.899 Other long term (current) drug therapy
CPT/HCPCS: 11730; 99283

== ENCOUNTER 2020-11-14 09:30 | Outpatient (REF) | payer MEDICARE, MEDICAID, SELFPAY ==
[2020-11-14 10:12] LABS: COVID-19 Test Negative (Negative); IDNOW Serial# 55D5AD1C
== END 2020-11-14 09:31 | disposition home or self-care (01) ==
LOC: HO.LAB 09:30
PROVIDERS: Visit Provider Internal Medicine
DX: Z20.822 Contact with and (suspected) exposure to COVID-19 (principal)
CPT/HCPCS: 36415; 87635; C9803

== ENCOUNTER 2020-12-20 20:16 | Emergency (ER) | payer MEDICARE, MEDICAID, SELFPAY ==
--- NOTE | ~2020-12-20 | US_ITS ---
EXAMINATION: US VENOUS ULTRASOUND WITH DOPPLER LOWER EXTREMITY, LEFT CLINICAL INFORMATION: Left posterior thigh pain COMPARISON: 11/01/2017 TECHNIQUE: Ultrasound of the deep veins is performed from the hip to the calf with compression sonography and color and pulse Doppler assessment. Spectral analysis with color-flow imaging is performed. FINDINGS: There is normal venous compression and respiratory variation and augmented flow. The visualized common femoral vein, superficial femoral vein, profunda femoral vein, popliteal vein, and the trifurcation region shows no evidence of deep venous thrombosis. There is no significant popliteal fossa cyst. If the patient's symptoms persist, followup ultrasound in 5 days 7 days might be of value to exclude proximal propagation from a non-visualized calf vein. US/US venous duplex LE LT IMPRESSION: No DVT demonstrated in the left lower extremity.
[2020-12-20 20:25] VITALS: BP 122/69; PULSE 89; RESP 18; TEMP 36.8; O2SAT 99; BMI 32.6
--- NOTE | 2020-12-20 21:58 | ED_ITS ---
HPI - Extremity Problem General Chief complaint: Extremity Problem Stated complaint: lower back pain Time Seen by Provider: 12/20/20 21:42 Source: patient Mode of arrival: ambulatory History of Present Illness HPI Narrative: This is a 40-year-old female who presents with onset of left, posterior thigh pain that is sharp in nature and radiates down the back of her leg the became worse today. She denies attempts to utilize fcra-skj-phoravj analgesics or stretching [employer]. No recent history of long car rides or plane trips, hemoptysis, estrogen supplementation, personal history of cancer, recent surgery or bed bound state, calf pain or calf swelling. Related Data Home Medications Medication Instructions Recorded Confirmed cholecalciferol (vitamin D3) 25 mcg PO DAILY 10/22/20 10/22/20 [Vitamin D3] doxepin 50 mg PO DAILY 10/22/20 10/22/20 ferrous sulfate 324 mg PO DAILY 10/22/20 10/22/20 lamotrigine 150 mg PO DAILY 10/22/20 10/22/20 multivitamin cap 10/22/20 olanzapine [Zyprexa] 20 mg PO DAILY 10/22/20 10/22/20 ondansetron 4 mg PO Q6H PRN 10/22/20 10/22/20 pantoprazole 40 mg PO DAILY 10/22/20 10/22/20 verapamil 40 mg PO DAILY 10/22/20 10/22/20 Previous Rx's Medication Instructions Recorded sulfamethoxazole-trimethoprim 1 tab PO BID #14 tab 10/22/20 [Bactrim DS] Allergies Allergy/AdvReac Type Severity Reaction Status Date / Time Penicillins Allergy Mild HIVES Verified 12/20/20 21:11 naproxen [NAPROXEN] Allergy Unknown BLEEDING Verified 12/20/20 21:11 penicillin V Allergy Unknown Hives Verified 12/20/20 21:11 Review of Systems Review of Systems: Pertinent positives and negatives as stated in HPI 10 point review of systems is otherwise negative. [facility] Past Medical History Source: nursing notes reviewed Medical History delivery delivered Surgical History Gastric bypass status for obesity Tubal ligation status Social History Social History Alcohol intake: never Advance Directives: No Advance Directives Information Provided: No Patient : No Physical Exam Vital Signs: Vital Signs: Last Vital Signs Temp 98.3 F 12/20/20 20:25 Pulse 89 12/20/20 20:25 Resp 18 12/20/20 20:25 BP 122/69 12/20/20 20:25 Pulse Ox 99 12/20/20 20:25 Body Mass Index 32.6 VITAL SIGNS: Reviewed. GENERAL: Well developed, well nourished, in no acute distress. HEAD: Normocephalic/atraumatic EYES: PERRLA, EOMI OROPHARYNX: no oral lesions noted, posterior pharynx clear NECK: Supple, no adenopathy LUNGS: Normal breath sounds. No adventitious sounds or accessory muscle use. SpO2<99> CARDIOVASCULAR: Regular rate and rhythm without noted murmurs ABDOMEN: Soft, non-tender, non-distended with bowel sounds. LEFT LOWER EXTREMITY: Point tenderness without cord noted at left posterior thigh no noted difference in calf size and no associated erythema or induration appreciated NEUROLOGIC: Alert and oriented x 4. Strength and sensation to light touch were grossly intact x 4. Course Course Course Narrative: 40-year-old female with history and clinical presentation consistent with likely hamstring strain and less likely DVT. Review of all results negative for acute findings, these results were discussed with patient at bedside as well as receiving counseling for measures to address muscle strain. She was discharged home in stable condition. Discharge Plan Discharge Clinical Impression: Left hamstring muscle strain Patient Disposition: Home, Self-Care Instructions: Muscle Strain (ED) Additional Instructions: 1. Tylenol 1000 mg, orally, every 6 hours as needed for pain control. Do not exceed 4000 mg within 24 hours. 2. Ibuprofen 400 mg, orally with milk or food, every 6 hours as needed for pain control. You may take this in combination with the Tylenol for additional symptom relief. 3. Continue to stretch the posterior muscles of your lower left leg. Return to the ER for any acute worsening of symptoms. Prescriptions: No Action lamotrigine 150 mg Tablet 150 mg PO DAILY RF: 0 doxepin 50 mg Capsule 50 mg PO DAILY RF: 0 verapamil 40 mg Tablet 40 mg PO DAILY RF: 0 pantoprazole 40 mg Tablet,Delayed Release (Dr/Ec) 40 mg PO DAILY RF: 0 ondansetron 4 mg Tablet,Disintegrating 4 mg PO Q6H PRN (Reason: Nausea And Vomiting) RF: 0 multivitamin Capsule RF: 0 olanzapine [Zyprexa] 20 mg Tablet 20 mg PO DAILY RF: 0 cholecalciferol (vitamin D3) [Vitamin D3] 25 mcg (1,000 unit) Capsule 25 mcg PO DAILY RF: 0 ferrous sulfate 324 mg (65 mg iron) Tablet,Delayed Release (Dr/Ec) 324 mg PO DAILY RF: 0 sulfamethoxazole-trimethoprim [Bactrim DS] 800-160 mg tablet 1 tab PO BID Qty: 14 RF: 0 Referrals: Zaheer Madden MD [Primary Care Provider] - 2 days
[2020-12-21] VITALS: BP 117/74; PULSE 82; RESP 17; TEMP 36.9; O2SAT 100
== END 2020-12-21 00:13 | disposition home or self-care (01) ==
PROVIDERS: Emergency Provider Student in an Organized Health Care Education/Training Program; PCP Internal Medicine
DX: S76.312A Strain of muscle, fascia and tendon of the posterior muscle group at thigh level, left thigh, initial encounter (principal); M79.652 Pain in left thigh; X58.XXXA Exposure to other specified factors, initial encounter; Y93.9 Activity, unspecified; Y92.9 Unspecified place or not applicable; Y99.9 Unspecified external cause status
CPT/HCPCS: 93971; 99284

== ENCOUNTER 2021-02-07 09:35 | Outpatient (REF) | payer MEDICARE, MEDICAID, SELFPAY | END 2021-02-07 09:36 | disposition home or self-care (01) | LOC: HO.LAB 09:35 | PROVIDERS: PCP Internal Medicine; Visit Provider Internal Medicine | DX: Z20.822 Contact with and (suspected) exposure to COVID-19 (principal) | CPT/HCPCS: C9803; U0003; U0005 ==

== ENCOUNTER 2021-02-07 19:28 | Emergency (ER) | payer MEDICARE, MEDICAID, SELFPAY ==
[2021-02-07 19:45] VITALS: BP 116/55; PULSE 83; RESP 18; TEMP 36.9; O2SAT 98; BMI 32.8
[2021-02-07 20:49] LABS: Influenza A PCR NEGATIVE (Negative); Influenza B PCR NEGATIVE (Negative); Resp Syncy Virus RNA Qual PCR NEGATIVE (Negative); SARS COV2 PCR INHOUSE POSITIVE (Negative)
--- NOTE | 2021-02-07 21:17 | ED_ITS ---
HPI - URI/Sore Throat General Chief Complaint: Upper Respiratory Symptoms Stated Complaint: flu like Time Seen by Provider: 02/07/21 20:31 Source: patient Mode of arrival: ambulatory Limitations: no limitations History of Present Illness HPI Narrative: 40-year-old female here with complaints of 24 hours of dry cough, feeling lightheaded and diarrhea. Boyfriend at home is COVID positive. No fevers, chills, abdominal pain, vomiting, shortness of breath. No fevers chills Received COVID vaccine [employer] (1st dose november, 2nd dose december) at [facility]. Related Data Home Medications Medication Instructions Recorded Confirmed cholecalciferol (vitamin D3) 25 25 mcg PO DAILY 10/22/20 10/22/20 mcg (1,000 unit) capsule (Vitamin D3) doxepin 50 mg capsule 50 mg PO DAILY 10/22/20 10/22/20 ferrous sulfate 324 mg (65 mg 324 mg PO DAILY 10/22/20 10/22/20 iron) tablet,delayed release lamotrigine 150 mg tablet 150 mg PO DAILY 10/22/20 10/22/20 multivitamin cap 10/22/20 olanzapine 20 mg tablet (Zyprexa) 20 mg PO DAILY 10/22/20 10/22/20 ondansetron 4 mg disintegrating 4 mg PO Q6H PRN 10/22/20 10/22/20 tablet pantoprazole 40 mg tablet,delayed 40 mg PO DAILY 10/22/20 10/22/20 release verapamil 40 mg tablet 40 mg PO DAILY 10/22/20 10/22/20 Previous Rx's Medication Instructions Recorded sulfamethoxazole 800 1 tab PO BID #14 tab 10/22/20 mg-trimethoprim 160 mg tablet (Bactrim DS) Allergies Allergy/AdvReac Type Severity Reaction Status Date / Time Penicillins Allergy Mild HIVES Verified 02/07/21 19:45 naproxen [NAPROXEN] Allergy Unknown BLEEDING Verified 02/07/21 19:45 penicillin V Allergy Unknown Hives Verified 02/07/21 19:45 Review of Systems Review of Systems: Yes all other systems are reviewed and are negative Constitutional: Constitutional: Reports no additional constitutional complaints, Denies body ache(s), Denies chills, Denies fever(s), Denies headache(s) and Denies weakness Eyes: Eyes: Reports no additional eye complaints and Denies change in vision ENT: Reports system reviewed and no additional complaints, except as documented, Reports dizziness, Denies headache(s), Denies nasal congestion, Denies nasal discharge and Denies neck pain Cardiovascular: Cardiovascular: Reports no additional cardiovascular complaints, Denies chest pain, Denies leg edema and Denies dyspnea Respiratory: Respiratory: Reports no additional respiratory complaints, Reports cough and Denies dyspnea Gastrointestinal: Gastrointestinal: Reports no additional gastrointestinal complaints, Denies abdominal pain, Reports diarrhea, Denies nausea and Denies vomiting Genitourinary: Genitourinary: Reports no additional female genitourinary complaints and Denies urinary incontinence Musculoskeletal: Musculoskeletal: Reports no additional musculoskeletal compl aints, Denies back pain, Denies arthralgias, Denies joint swelling, Denies neck pain, Denies numbness and Denies tingling Integumentary/Breasts: Skin/Breast: Reports system reviewed and no additional complaints, except as docu and Denies rash Neurologic: Denies Abnormal speech present, Reports dizziness, Denies hea dache(s), Denies numbness, Denies tingling and Denies weakness PMFSH Past Medical History Attestation statement: The following information was validated with the patient. Source: old records reviewed and nursing notes reviewed Medical History Anxiety Bipolar 1 disorder delivery delivered PTSD (post-traumatic stress disorder) Surgical History Gastric bypass status for obesity Tubal ligation status Social History Social History Alcohol intake: never Advance Directives: No Advance Directives Information Provided: No Patient : No Physical Exam Vital Signs: Vital Signs: Last Vital Signs Temp 98.5 F 02/07/21 19:45 Pulse 83 02/07/21 19:45 Resp 18 02/07/21 19:45 BP 116/55 L 02/07/21 19:45 Pulse Ox 98 02/07/21 19:45 Body Mass Index 32.8 Const: General: cooperative, healthy appearing, comfortable and no acute distress Orientation/consciousness: patient oriented x3 Limitations: no limitations HENMT: Head: Yes normal to inspection Ears: hearing grossly normal bilaterally General nose exam: Normal external nose present Face and sinus: Yes normal facial exam Mouth: Normal oral and palatal mucosa present Throat: Yes posterior oropharynx normal Eyes: General: appearance normal, both eyes and all related structures Pupils: Equal, round and reactive pupils present Neck: Neck: Yes normal visual inspection Chest: Chest palpation & inspection: normal inspection of the chest Resp: Effort & Inspection: normal respiratory effort Auscultation: clear to auscultation bilaterally Cardio: Rate: regular rate Rhythm: regular rhythm Peripheral pulses: Peripheral pulses 2+ throughout GI: Inspection: Yes normal to inspection Palpation (GI): Soft to palpation and nontender Auscultation: normal bowel sounds Back/Spine/Pelvis: Thoracic/Lumbar Spine: thoracic and lumbar spine normal to inspection Skin: General skin exam: no rashes or lesions noted Neuro: General: patient oriented x3, no focal motor deficits and normal sensation to monofilament Cranial nerves: Yes Equal, round and reactive pupils present Cognition (Neuro): normal cognition Speech: No Abnormal speech present Gait exam (Neuro): Normal gait present Motor exam (neuro): 5/5 motor strength present throughout Extrem: General: Yes normal to inspection Course Course Course Narrative: 40-year-old female here with feeling lightheaded, cough and with 2 episodes of diarrhea in the last 24 hours. Boyfriend at home is COVID positive. Will send COVID screen. 2100-COVID screen positive. Patient is well-appearing. Hemodynamically stable. No focal abdominal pain. Clear lung sounds. Stable saturations. Reviewed worrisome signs of when to return to the emergency department. Comfortable discharge home. MDM - URI/Sore Throat Medical Records Attestation: I reviewed the patient's medical records. Lab Data Attestation: I reviewed the patient's lab results. Labs: Lab Results 02/07/21 Range/Units 19:57 Coronavirus (PCR) POSITIVE A (Negative) Influenza Type A (PCR) NEGATIVE (Negative) Influenza Type B (PCR) NEGATIVE (Negative) RSV RNA Qual (PCR) NEGATIVE (Negative) Discharge Plan Discharge Clinical Impression: COVID-19 Patient Disposition: Home, Self-Care Instructions: COVID-19 (Coronavirus Disease 2019) (ED) Additional Instructions: Per the CDC you must quarantine for 10 days and your symptoms must be resolved for 24 hours prior to return to work and play Prescriptions: No Action lamotrigine 150 mg Tablet 150 mg PO DAILY RF: 0 doxepin 50 mg Capsule 50 mg PO DAILY RF: 0 verapamil 40 mg Tablet 40 mg PO DAILY RF: 0 pantoprazole 40 mg Tablet,Delayed Release (Dr/Ec) 40 mg PO DAILY RF: 0 ondansetron 4 mg Tablet,Disintegrating 4 mg PO Q6H PRN (Reason: Nausea And Vomiting) RF: 0 multivitamin Capsule RF: 0 olanzapine [Zyprexa] 20 mg Tablet 20 mg PO DAILY RF: 0 cholecalciferol (vitamin D3) [Vitamin D3] 25 mcg (1,000 unit) Capsule 25 mcg PO DAILY RF: 0 ferrous sulfate 324 mg (65 mg iron) Tablet,Delayed Release (Dr/Ec) 324 mg PO DAILY RF: 0 sulfamethoxazole-trimethoprim [Bactrim DS] 800-160 mg tablet 1 tab PO BID Qty: 14 RF: 0 Referrals: Zaheer Madden MD [Primary Care Provider] - 2 days Interventions: ED Discharge Assessment Last Done: 02/07/21 21:19
== END 2021-02-07 21:22 | disposition home or self-care (01) ==
PROVIDERS: Emergency Provider Emergency Medicine; PCP Internal Medicine
DX: U07.1 COVID-19 (principal); R05 Cough; Z79.899 Other long term (current) drug therapy
CPT/HCPCS: 0241U; 36415; 99283

== ENCOUNTER 2021-02-22 08:52 | Outpatient (REF) | payer MEDICARE, MEDICAID, SELFPAY | END 2021-02-22 08:53 | disposition home or self-care (01) | LOC: HO.LAB 08:52 | PROVIDERS: PCP Internal Medicine; Visit Provider Internal Medicine | DX: Z20.822 Contact with and (suspected) exposure to COVID-19 (principal) | CPT/HCPCS: U0003; U0005 ==

== ENCOUNTER 2021-03-11 03:29 | Emergency (ER) | payer MEDICARE, MEDICAID, SELFPAY ==
[2021-03-11 03:36] VITALS: BP 112/70; PULSE 92; RESP 16; TEMP 36.7; O2SAT 96; BMI 32.6
[2021-03-11 03:57] LABS: Glucose Urine UA NEG (NEG); Leukocyte Esterase Urine 2+ (NEG); Nitrite Urine NEG (NEG); Specific Gravity - Urine 1.015 (1.005-1.025); UACC Culture Trigger YES; Urine Blood 3+ (NEG); Urine Ketones NEG (NEG); Urine Protein 1+ MG/DL (NEG-TRACE)
[2021-03-11 03:57] LABS: Basophils Percent Auto 0.4 % (0-2); Eosinophils Absolute Auto 0.1 X10*3/uL (0.0-0.4); Eosinophils Percent Auto 0.8 % (0-4); Hematocrit 31.7 % (37-47); Hemoglobin 9.9 g/dl (12.0-16.0); Imm Gran Abs Auto 0.02 X10*3/uL (0.00-0.03); Imm Gran Pct Auto 0.2 % (0.0-0.4); Lymphocytes Absolute Auto 2.9 X10*3/uL (1.2-4.9); Lymphocytes Percent Auto 35.5 % (20-40); MANUAL DIFF FLAG NO; Mean Corpuscular HGB Conc 31.2 g/dl (31.0-35.0); Mean Corpuscular Hemoglobin 23.3 pg (27.0-33.0); Mean Corpuscular Volume 74.6 fL (80-98); Monocytes Absolute Auto 0.7 X10*3/uL (0.1-1.2); Monocytes Percent Auto 8.8 % (2-11); Neutrophils Absolute Auto 4.5 X10*3/uL (2.0-8.3); Neutrophils Percent Auto 54.3 % (45-73); Platelet Count 333 X10*3/uL (160-400); Red Blood Count 4.25 X10*6/uL (4.20-5.50); Red Cell Distribution Width 15.2 % (11.0-16.0); White Blood Count 8.3 X10*3/uL (4.8-10.8)
[2021-03-11 03:58] LABS: Appearance Urine HAZY; Color Urine YELLOW
[2021-03-11 04:00] LABS: UPreg QC Valid YES; Urine Pregnancy NEGATIVE (NEGATIVE)
[2021-03-11 04:03] LABS: Bacteria Urine 1+ /LPF; Squamous Epithelial Cell Urine 1+ /LPF
[2021-03-11 04:14] LABS: Anion Gap 12 (12-20); Blood Urea Nitrogen 7 mg/dL (9-16); Calcium 9.2 mg/dL (8.4-10.2); Carbon Dioxide 22 mmol/L (22-29); Chloride 109 mmol/L (96-108); Creatinine Clr Calc Pharmacy 133.6; Estimated Glomerular Filt Rate > 60; Glucose Random 88 mg/dL (60-115); Potassium 3.8 mmol/L (3.3-5.1); Sodium 139 mmol/L (135-145)
--- NOTE | 2021-03-11 04:50 | ED_ITS ---
HPI - Female Genitourinary General Chief complaint: Vaginal Bleeding Stated complaint: vaginal bleeding/ fibroid in uterus Time Seen by Provider: 03/11/21 04:30 Source: patient Mode of arrival: ambulatory Limitations: no limitations History of Present Illness HPI Narrative: Patient comes to emergency room complaining of heavy vaginal bleeding. Patient states that she is known to have fibroids. Patient has been seen by her OBGYN who prescribed her control pills a few days ago. Patient states that the pharmacy called her and let her know that the control pills and the lamotrigine that the patient takes have an interaction, OCPs decrease the lamotrigine concentration in the body and effectiveness, patient takes it for mood stabilization. Therefore, patient decided not to take this medicine. Patient states that over last 2 hours the vaginal bleeding has increased, states she needs a new pad every 15 minutes. Patient denies feeling dizzy, no shortness of breath, no weakness. No chest pain. Related Data Home Medications Medication Instructions Recorded Confirmed cholecalciferol (vitamin D3) 25 25 mcg PO DAILY 10/22/20 10/22/20 mcg (1,000 unit) capsule (Vitamin D3) doxepin 50 mg capsule 50 mg PO DAILY 10/22/20 10/22/20 ferrous sulfate 324 mg (65 mg 324 mg PO DAILY 10/22/20 10/22/20 iron) tablet,delayed release lamotrigine 150 mg tablet 150 mg PO DAILY 10/22/20 10/22/20 multivitamin cap 10/22/20 olanzapine 20 mg tablet (Zyprexa) 20 mg PO DAILY 10/22/20 10/22/20 ondansetron 4 mg disintegrating 4 mg PO Q6H PRN 10/22/20 10/22/20 tablet pantoprazole 40 mg tablet,delayed 40 mg PO DAILY 10/22/20 10/22/20 release verapamil 40 mg tablet 40 mg PO DAILY 10/22/20 10/22/20 Previous Rx's Medication Instructions Recorded sulfamethoxazole 800 1 tab PO BID #14 tab 10/22/20 mg-trimethoprim 160 mg tablet (Bactrim DS) nitrofurantoin 100 mg PO Q12H 7 Days #14 cap 03/11/21 monohydrate/macrocrystals 100 mg capsule (Macrobid) tranexamic acid 650 mg tablet 650 mg PO BID 5 Days #10 tab 03/11/21 Allergies Allergy/AdvReac Type Severity Reaction Status Date / Time Penicillins Allergy Mild HIVES Verified 03/11/21 03:36 naproxen [NAPROXEN] Allergy Unknown BLEEDING Verified 03/11/21 03:36 penicillin V Allergy Unknown Hives Verified 03/11/21 03:36 Review of Systems Review of Systems: Constitutional : No Weight loss, No Fever, No Chills, No Night Sweats, No Fatigue, No Malaise ENT/Mouth : No Hearing loss, No Ear Pain, No Nasal Congestion, No Sinus Pain, No Hoarseness, No sore throat, No Rhinorrhea, No Swallowing Difficulty Eyes: No Eye Pain, No Swelling, No Redness, No Foreign Body, No Discharge, No Vision Changes Cardiovascular : No Chest Pain, No SOB, No Dyspnea on Exertion, No Orthopnea, No Edema, No Palpitations Respiratory : No Cough, No Sputum, No Wheezing, No Smoke Exposure, No Dyspnea Gastrointestinal : No Nausea, No Vomiting, No Diarrhea, No Constipation, No abdominal Pain, No Hematochezia, No Melena Genitourinary : Heavy vaginal bleeding, No Dysuria, No Urinary Frequency, No Hematuria, No Urinary Incontinence, No Urgency, No Flank Pain, No Urinary Flow Changes, No Hesitancy Musculoskeletal : No joint pain, No Myalgias, No Joint Swelling Skin : No Skin Lesions, No rash Neuro : No Weakness, No Numbness, No Paresthesias, No Loss of Consciousness, No Dizziness, No Headache Psych : No Anxiety/Panic, No Depression, No SI/HI/AH/VH, No Social Issues, Heme/Lymph: No Bruising, No Bleeding,No Lymphadenopathy Endocrine : No Polyuria, No Polydipsia, No Temperature Intolerance [facility] Past Medical History Medical History Anxiety Bipolar 1 disorder delivery delivered PTSD (post-traumatic stress disorder) Surgical History Gastric bypass status for obesity Tubal ligation status Social History Social History Alcohol intake: never Advance Directives: No Physical Exam Vital Signs: Vital Signs: Last Vital Signs Temp 98.1 F 03/11/21 03:36 Pulse 92 03/11/21 03:36 Resp 16 03/11/21 03:36 BP 112/70 03/11/21 03:36 Pulse Ox 96 03/11/21 03:36 Body Mass Index 32.6 Const: Other: Appearance: Alert. Oriented X3. No acute distress. Eyes: Pupils equal, round and reactive to light. ENT: Pharynx normal. Neck: Normal inspection. Neck supple. No lymph nodes noted. No crepitus CVS: Normal heart rate and rhythm. Pulses normal. Normal S1 and S2 Respiratory: No respiratory distress. Breath sounds normal. No Wheezing. No rales Abdomen: Soft and nontender. No rigidity. No distention. : Large fibroid protruding through the cervix, moderate amount of blood in the cervical canal Skin: Skin warm and dry. Normal skin color. Normal skin turgor. Extremities: No lower extremity edema. No lower extremity edema. No Lacerations. No Rash Neuro: Oriented X 3. No motor deficit. No sensory deficit. Moving all extermities. No slurred speech. Course Course Course Narrative: I discussed the physical exam with the patient, patient states that she is aware that the fibroid is protruding through the cervix, has been told so before by her OBGYN. Also I discussed with the patient that she has a UTI. I discussed with the patient that we can start her on tranexamic acid p.o., which has no interaction with lamotrigine. Patient agrees with plan. MDM - Female Genitourinary Lab Data Result diagrams: 03/11/21 03:48 03/11/21 03:48 Labs: Lab Results 03/11/21 03/11/21 03/11/21 Range/Units 03:48 03:48 03:50 WBC 8.3 (4.8-10.8) X10*3/uL RBC 4.25 (4.20-5.50) X10*6/uL Hgb 9.9 L (12.0-16.0) g/dl Hct 31.7 L (37-47) % MCV 74.6 L (80-98) fL MCH 23.3 L (27.0-33.0) pg MCHC 31.2 (31.0-35.0) g/dl RDW 15.2 (11.0-16.0) % Plt Count 333 (160-400) X10*3/uL MPV 9.0 L (9.4-12.3) fL Immature Gran % (Auto) 0.2 (0.0-0.4) % Neut % (Auto) 54.3 (45-73) % Lymph % (Auto) 35.5 (20-40) % [place] % (Auto) 8.8 (2-11) % Eos % (Auto) 0.8 (0-4) % Baso % (Auto) 0.4 (0-2) % Lymph # (Auto) 2.9 (1.2-4.9) X10*3/uL [place] # (Auto) 0.7 (0.1-1.2) X10*3/uL Eos # (Auto) 0.1 (0.0-0.4) X10*3/uL Baso # (Auto) 0.0 (0.0-0.2) X10*3/uL Abs Immat Gran (auto) 0.02 (0.00-0.03) X10*3/uL Absolute Neuts (auto) 4.5 (2.0-8.3) X10*3/uL Absolute Nucleated RBC 0.000 (0.0-0.012) X10*3/uL Nucleated RBC % (auto) 0.0 (0.0-0.2) /100WBC Sodium 139 (135-145) mmol/L Potassium 3.8 (3.3-5.1) mmol/L Chloride 109 H (96-108) mmol/L Carbon Dioxide 22 (22-29) mmol/L Anion Gap 12 (12-20) BUN 7 L (9-16) mg/dL Creatinine 0.69 (0.5-1.4) mg/dL Estim Creat Clear Calc 133.6 Estimated GFR > 60 Random Glucose 88 (60-115) mg/dL Calcium 9.2 (8.4-10.2) mg/dL Urine Color YELLOW Urine Appearance HAZY Urine pH 6.0 (5.0-8.0) Ur Specific [place] 1.015 (1.005-1.025) Urine Protein 1+ H (NEG-TRACE) MG/DL Urine Glucose (UA) NEG (NEG) MG/DL Urine Ketones NEG (NEG) MG/DL Urine Blood 3+ H (NEG) Urine Nitrite NEG (NEG) Ur Leukocyte Esterase 2+ H (NEG) Urine RBC 76-150 H (0) /HPF Urine WBC 5-9 H (0-4) /HPF Ur Squamous Epith Cells 1+ /LPF Urine Bacteria 1+ /LPF Urine Test (NEGATIVE) 03/11/21 Range/Units 03:50 WBC (4.8-10.8) X10*3/uL RBC (4.20-5.50) X10*6/uL Hgb (12.0-16.0) g/dl Hct (37-47) % MCV (80-98) fL MCH (27.0-33.0) pg MCHC (31.0-35.0) g/dl RDW (11.0-16.0) % Plt Count (160-400) X10*3/uL MPV (9.4-12.3) fL Immature Gran % (Auto) (0.0-0.4) % Neut % (Auto) (45-73) % Lymph % (Auto) (20-40) % [place] % (Auto) (2-11) % Eos % (Auto) (0-4) % Baso % (Auto) (0-2) % Lymph # (Auto) (1.2-4.9) X10*3/uL [place] # (Auto) (0.1-1.2) X10*3/uL Eos # (Auto) (0.0-0.4) X10*3/uL Baso # (Auto) (0.0-0.2) X10*3/uL Abs Immat Gran (auto) (0.00-0.03) X10*3/uL Absolute Neuts (auto) (2.0-8.3) X10*3/uL Absolute Nucleated RBC (0.0-0.012) X10*3/uL Nucleated RBC % (auto) (0.0-0.2) /100WBC Sodium (135-145) mmol/L Potassium (3.3-5.1) mmol/L Chloride (96-108) mmol/L Carbon Dioxide (22-29) mmol/L Anion Gap (12-20) BUN (9-16) mg/dL Creatinine (0.5-1.4) mg/dL Estim Creat Clear Calc Estimated GFR Random Glucose (60-115) mg/dL Calcium (8.4-10.2) mg/dL Urine Color Urine Appearance Urine pH (5.0-8.0) Ur Specific [place] (1.005-1.025) Urine Protein (NEG-TRACE) MG/DL Urine Glucose (UA) (NEG) MG/DL Urine Ketones (NEG) MG/DL Urine Blood (NEG) Urine Nitrite (NEG) Ur Leukocyte Esterase (NEG) Urine RBC (0) /HPF Urine WBC (0-4) /HPF Ur Squamous Epith Cells /LPF Urine Bacteria /LPF Urine Test NEGATIVE (NEGATIVE) Discharge Plan Discharge Clinical Impression: Dysfunctional uterine bleeding, UTI (urinary tract infection) Patient Disposition: Home, Self-Care Instructions: Dysfunctional Uterine Bleeding (ED), Urinary Tract Infection in Women (ED) Additional Instructions: Please follow-up with your primary care physician tomorrow. If you have any worsening or new symptoms, please return to the emergency room or call 911 Prescriptions: New nitrofurantoin monohyd/m-cryst [Macrobid] 100 mg capsule 100 mg PO Q12H 7 Days Qty: 14 RF: 0 tranexamic acid 650 mg tablet 650 mg PO BID 5 Days Qty: 10 RF: 0 No Action lamotrigine 150 mg Tablet 150 mg PO DAILY RF: 0 doxepin 50 mg Capsule 50 mg PO DAILY RF: 0 verapamil 40 mg Tablet 40 mg PO DAILY RF: 0 pantoprazole 40 mg Tablet,Delayed Release (Dr/Ec) 40 mg PO DAILY RF: 0 ondansetron 4 mg Tablet,Disintegrating 4 mg PO Q6H PRN (Reason: Nausea And Vomiting) RF: 0 multivitamin Capsule RF: 0 olanzapine [Zyprexa] 20 mg Tablet 20 mg PO DAILY RF: 0 cholecalciferol (vitamin D3) [Vitamin D3] 25 mcg (1,000 unit) Capsule 25 mcg PO DAILY RF: 0 ferrous sulfate 324 mg (65 mg iron) Tablet,Delayed Release (Dr/Ec) 324 mg PO DAILY RF: 0 sulfamethoxazole-trimethoprim [Bactrim DS] 800-160 mg tablet 1 tab PO BID Qty: 14 RF: 0
[2021-03-11] MEDS: Nitrofurantoin Monohyd/M-Cryst 100 MG CAPSULE PO (04:58)
--- NOTE | 2021-03-11 04:59 | PC.NURSE ---
provider in to do vaginal examination. medicated per mar. plan is for pt to be discharge home.
[2021-03-11 05:01] VITALS: RESP 16
== END 2021-03-11 05:23 | disposition home or self-care (01) ==
PROVIDERS: Emergency Provider Emergency Medicine
DX: N93.8 Other specified abnormal uterine and vaginal bleeding (principal); N39.0 Urinary tract infection, site not specified; Z98.84 Bariatric surgery status; Z98.51 Tubal ligation status
CPT/HCPCS: 36415; 80048; 81001; 81025; 85025; 87086; 99283; 99284

== ENCOUNTER 2021-04-28 18:48 | Emergency (ER) | payer MEDICARE, MEDICAID, SELFPAY ==
--- NOTE | ~2021-04-28 | CT_ITS ---
EXAMINATION: CT ABDOMEN AND PELVIS WITH CONTRAST CLINICAL INFORMATION: Left upper quadrant pain. Rule out gastric hernia. Kidney stone. COMPARISON: 07/22/2020 TECHNIQUE: Multidetector volumetric images were obtained from the superior aspect of the liver through the pubic symphysis following administration 100 mL of Omnipaque 350 intravenous contrast. Sagittal and coronal reformatted images were obtained on the technologist's workstation. Oral contrast: No This CT examination was performed using dose optimization techniques as appropriate, variously including the following: *Automated exposure control *Adjustment of mA and/or kV according to patient size (this includes techniques or standardized protocols for targeted exams where dose is matched to indication/reason for exam; i.e. extremities or head) *Use of iterative reconstruction technique DLP: 1200 mGy-cm FINDINGS: LUNG BASES: The visualized lung bases are unremarkable. LIVER, GALLBLADDER, AND BILIARY TREE: The liver is normal in size, shape, and attenuation. No focal hepatic lesion or biliary ductal dilatation is present. Cholelithiasis. No pericholecystic fluid. PANCREAS: Unremarkable. SPLEEN: Unremarkable. ADRENAL GLANDS: Unremarkable. KIDNEYS AND URETERS: The kidneys are normal in size, shape, and attenuation. No hydronephrosis, hydroureter, or calculi seen. No perinephric stranding. BLADDER: Unremarkable. GASTROINTESTINAL TRACT: Rafi-en-Y gastrojejunostomy. No evidence of hiatal hernia. Remainder of the gastrointestinal tract unremarkable. ABDOMINAL WALL: No significant hernia is appreciated. LYMPH NODES: Normal. VASCULAR: Unremarkable. PELVIC VISCERA: Again seen is a large mass within the cervix relapsing into the vagina, which by CT appears slightly larger than on the prior examination now measuring 7.2 x 6.5 x 6.0 cm, previously 6.6 x 5.4 x 5.2 cm by my measurements. No adnexal abnormalities. OSSEOUS STRUCTURES: No acute or suspicious osseous abnormalities. 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 CT/CT abdomen pelvis w con IMPRESSION: * No urinary calculi or hydronephrosis. * Cholelithiasis. If there is concern for cholecystitis, recommend right upper quadrant ultrasound. * Unremarkable appearance of the Rafi-en-Y gastrojejunostomy. No hiatal hernia. * No intestinal obstruction or inflammation. * Again seen is a large cervical mass measuring up to 7.2 cm, larger in size than on the prior CT. Clinical correlation advised. Gynecologic consultation recommended if not already performed.
[2021-04-28 18:53] VITALS: BP 116/77; PULSE 83; RESP 18; TEMP 36.7; O2SAT 98; BMI 31.0
[2021-04-28 19:17] LABS: Appearance Urine CLEAR; Color Urine YELLOW; Glucose Urine UA NEG (NEG); Leukocyte Esterase Urine 1+ (NEG); Nitrite Urine NEG (NEG); Specific Gravity - Urine <= 1.005 (1.005-1.025); UACC Culture Trigger YES; Urine Blood TRACE (NEG); Urine Ketones NEG (NEG); Urine Protein TRACE MG/DL (NEG-TRACE)
[2021-04-28 19:22] LABS: Amorphous Sediment Urine TRACE /LPF; Mucus Urine 2+ /LPF; Renal Epithelial Cells Urine TRACE /LPF; Squamous Epithelial Cell Urine 2+ /LPF
[2021-04-28 19:23] LABS: RBC Urine 0-2 /HPF (0)
--- NOTE | 2021-04-28 20:22 | ED_ITS ---
HPI - Abdominal Pain General Chief Complaint: Abdominal Pain Stated Complaint: ?UTI Time Seen by Provider: 04/28/21 20:09 Source: patient Mode of arrival: ambulatory Limitations: no limitations History of Present Illness HPI narrative: 41-year-old female who presents emergency department for evaluation of left upper quadrant pain x3 days. She states the pain is an intermittent stabbing pain which is 9/10 at its worst. Patient has noted urinary frequency but no dysuria. She has had associated nausea but no vom iting. She denied fever, chills, chest pain, shortness of breath, change in her bowel movements. She states she has had daily bowel movements. The patient did notice a vaginal mucousy discharge but denied any pelvic pain. Patient states she had a kidney stone on the right in the past and this feels similar to her kidney stone. The patient has a history of gastric sleeve surgery in 2014 and had a gastric bypass surgery April 09, 2020. Related Data Home Medications Medication Instructions Recorded Confirmed cholecalciferol (vitamin D3) 25 25 mcg PO DAILY 10/22/20 10/22/20 mcg (1,000 unit) capsule (Vitamin D3) doxepin 50 mg capsule 50 mg PO DAILY 10/22/20 10/22/20 ferrous sulfate 324 mg (65 mg 324 mg PO DAILY 10/22/20 10/22/20 iron) tablet,delayed release lamotrigine 150 mg tablet 150 mg PO DAILY 10/22/20 10/22/20 multivitamin cap 10/22/20 olanzapine 20 mg tablet (Zyprexa) 20 mg PO DAILY 10/22/20 10/22/20 ondansetron 4 mg disintegrating 4 mg PO Q6H PRN 10/22/20 10/22/20 tablet pantoprazole 40 mg tablet,delayed 40 mg PO DAILY 10/22/20 10/22/20 release verapamil 40 mg tablet 40 mg PO DAILY 10/22/20 10/22/20 Previous Rx's Medication Instructions Recorded sulfamethoxazole 800 1 tab PO BID #14 tab 10/22/20 mg-trimethoprim 160 mg tablet (Bactrim DS) nitrofurantoin 100 mg PO Q12H 7 Days #14 cap 03/11/21 monohydrate/macrocrystals 100 mg capsule (Macrobid) tranexamic acid 650 mg tablet 650 mg PO BID 5 Days #10 tab 03/11/21 ferrous sulfate 325 mg (65 mg 325 mg PO TID 60 Days #180 tab 04/28/21 iron) tablet ondansetron 4 mg disintegrating 4 mg PO Q6-8H PRN #14 tab 04/28/21 tablet oxycodone 5 mg tablet 5 mg PO Q4H PRN #14 tab 04/28/21 Allergies Allergy/AdvReac Type Severity Reaction Status Date / Time Penicillins Allergy Mild HIVES Verified 04/28/21 18:53 naproxen [NAPROXEN] Allergy Unknown BLEEDING Verified 04/28/21 18:53 penicillin V Allergy Unknown Hives Verified 04/28/21 18:53 Review of Systems Review of Systems Yes all other systems are reviewed and are negative Physical Exam Vital Signs: Vital Signs: Last Vital Signs Temp 98.0 F 04/28/21 18:53 Pulse 83 04/28/21 18:53 Resp 18 04/28/21 18:53 BP 116/77 04/28/21 18:53 Pulse Ox 98 04/28/21 18:53 Body Mass Index 31.0 Const: General: cooperative and no acute distress Orientation/consciousness: oriented to person and oriented to place Limitations: no limitations HENMT: Head: Yes normal to inspection, Yes normocephalic and Yes atraumatic Ears: external ears normal General nose exam: Normal external nose present Face and sinus: Yes normal facial exam Mouth: Normal oral and palatal mucosa present Throat: Yes posterior oropharynx normal Eyes: General: appearance normal, both eyes and all related structures Pupils: Equal, round and reactive pupils present Neck: Neck: Yes normal visual inspection, Yes no lymphadenopathy, Yes trachea midline and Yes supple Chest: Chest palpation & inspection: normal inspection of the chest and normal palpation of entire chest wall Resp: Effort & Inspection: normal respiratory effort and able to speak in complete sentences Auscultation: clear to auscultation bilaterally Cardio: Rate: regular rate Rhythm: regular rhythm Heart sounds: S1 normal heart sound present, S2 normal heart sound present and no murmurs GI: Inspection: Yes normal to inspection Palpation (GI): Soft to palpation, Tenderness to palpation present (GI) in the LLQ (Moderate) and no guarding Auscultation: normal bowel sounds : General: Yes CVA tenderness on the left (Moderate) Back/Spine/Pelvis: Back: CVA tenderness Skin: General skin exam: no rashes or lesions noted Neuro: General: oriented to person and oriented to place Cranial nerves: Yes CN's II-XII intact bilaterally and Yes Equal, round and reactive pupils present Cognition (Neuro): normal cognition Motor exam (neuro): 5/5 motor strength present throughout Extrem: General: Yes normal to inspection Psych: Appearance: grossly normal Speech and movement: Normal speech and movement present Affect: normal affect Attitude: cooperative Thought pr ocess: Normal thought process present Thought content: Normal thought content present Course Course Course Narrative: 41-year-old female who presents emergency department for evaluation of left upper quadrant pain x3 days, the pain is an intermittent, sharp stabbing pain which is not out of 10 at its worst. She has had urinary frequency but no dysuria, she has had associated nausea but no vomiting. She has been having daily bowel movements. The patient does have a history of gastric bypass surgery 04/09/2020. The patient's vital signs were normal. Physical examination did reveal left upper quadrant tenderness and left CVA tenderness. The patient does not want any pain medications that this time. The differential includes was not limited to renal stone, ureteral stone, internal hernia, ischemic bowel. I ordered a CBC, CMP, lipase, lactic acid, urinalysis, urine test. CT scan of the abdomen pelvis with IV contrast will be obtained as well. Patient was ordered to get normal saline x1 L. 2210: The patient's laboratory evaluation revealed a chronic microcytic anemia with an H&H of 10.1 and 33.1. White blood cell count was normal at 7700. Comprehensive metabolic panel was normal. Urinalysis revealed 1+ leukocyte esterase. Microscopic revealed 0-2 rbc's, 5-9 WBCs and no bacteria. CT scan of the abdomen pelvis did not reveal a clear cause for the patient's left upper quadrant pain. There was no internal hernia noted or hiatal hernia. The patient did have cholelithiasis with no evidence of cholecystitis. Patient also has a cervical mass that she states was evaluated previously and she believes is a fibroid. I did tell the patient however this cervical masses gotten larger and she states that she has a follow-up appointment with her metal finish inspector next week. I did print up the CT scanner poor and advised the patient to give this to her metal finish inspector to discuss this cervical mass. I did tell the patient that her metal finish inspector test to make sure that she does not have a cervical cancer as the cause of this mass. The patient will be discharged home. She was given a prescription for oxycodone 5 mg every 4-6 hours as needed for pain she was also advised to take Tylenol for pain. She was given printed and verbal instructions and discharged home. MDM - Abdominal Pain Lab Data Result diagrams: 04/28/21 20:31 04/28/21 20:31 Labs: Lab Results 04/28/21 04/28/21 04/28/21 Range/Units 19:01 20:31 20:31 WBC 7.7 (4.8-10.8) X10*3/uL RBC 4.50 (4.20-5.50) X10*6/uL Hgb 10.1 L (12.0-16.0) g/dl Hct 33.1 L (37-47) % MCV 73.6 L (80-98) fL MCH 22.4 L (27.0-33.0) pg MCHC 30.5 L (31.0-35.0) g/dl RDW 15.4 (11.0-16.0) % Plt Count 395 (160-400) X10*3/uL MPV 9.2 L (9.4-12.3) fL Immature Gran % (Auto) 0.1 (0.0-0.4) % Neut % (Auto) 62.9 (45-73) % Lymph % (Auto) 30.1 (20-40) % [place] % (Auto) 6.2 (2-11) % Eos % (Auto) 0.4 (0-4) % Baso % (Auto) 0.3 (0-2) % Lymph # (Auto) 2.3 (1.2-4.9) X10*3/uL [place] # (Auto) 0.5 (0.1-1.2) X10*3/uL Eos # (Auto) 0.0 (0.0-0.4) X10*3/uL Baso # (Auto) 0.0 (0.0-0.2) X10*3/uL Abs Immat Gran (auto) 0.01 (0.00-0.03) X10*3/uL Absolute Neuts (auto) 4.8 (2.0-8.3) X10*3/uL Absolute Nucleated RBC 0.000 (0.0-0.012) X10*3/uL Nucleated RBC % (auto) 0.0 (0.0-0.2) /100WBC Sodium 138 (135-145) mmol/L Potassium 3.8 (3.3-5.1) mmol/L Chloride 105 (96-108) mmol/L Carbon Dioxide 22 (22-29) mmol/L Anion Gap 15 (12-20) BUN 9 (9-16) mg/dL Creatinine 0.78 (0.5-1.4) mg/dL Estim Creat Clear Calc 118.9 Estimated GFR > 60 Random Glucose 91 (60-115) mg/dL Lactic Acid (0.5-2.0) mmol/L Calcium 9.3 (8.4-10.2) mg/dL Total Bilirubin 0.4 (0.0-1.0) mg/dL AST 15 (5-31) U/L ALT 13 (0-31) U/L Alkaline Phosphatase 111 (39-117) U/L Total Protein 7.1 (6.5-8.0) g/dL Albumin 4.4 (3.5-5.0) g/dL Lipase 16 (8-78) U/L Beta HCG, Quant < 2 mIU/mL Urine Color YELLOW Urine Appearance CLEAR Urine pH 6.0 (5.0-8.0) Ur Specific [place] <= 1.005 (1.005-1.025) Urine Protein TRACE (NEG-TRACE) MG/DL Urine Glucose (UA) NEG (NEG) MG/DL Urine Ketones NEG (NEG) MG/DL Urine Blood TRACE (NEG) Urine Nitrite NEG (NEG) Ur Leukocyte Esterase 1+ H (NEG) Urine RBC 0-2 (0) /HPF Urine WBC 5-9 H (0-4) /HPF Ur Squamous Epith Cells 2+ /LPF Ur Renal Epithelial Cell TRACE /LPF Amorphous Sediment TRACE /LPF Urine Bacteria NONE /LPF Urine Mucus 2+ /LPF 10/24/21 Range/Units 20:31 WBC (4.8-10.8) X10*3/uL RBC (4.20-5.50) X10*6/uL Hgb (12.0-16.0) g/dl Hct (37-47) % MCV (80-98) fL MCH (27.0-33.0) pg MCHC (31.0-35.0) g/dl RDW (11.0-16.0) % Plt Count (160-400) X10*3/uL MPV (9.4-12.3) fL Immature Gran % (Auto) (0.0-0.4) % Neut % (Auto) (45-73) % Lymph % (Auto) (20-40) % [place] % (Auto) (2-11) % Eos % (Auto) (0-4) % Baso % (Auto) (0-2) % Lymph # (Auto) (1.2-4.9) X10*3/uL [place] # (Auto) (0.1-1.2) X10*3/uL Eos # (Auto) (0.0-0.4) X10*3/uL Baso # (Auto) (0.0-0.2) X10*3/uL Abs Immat Gran (auto) (0.00-0.03) X10*3/uL Absolute Neuts (auto) (2.0-8.3) X10*3/uL Absolute Nucleated RBC (0.0-0.012) X10*3/uL Nucleated RBC % (auto) (0.0-0.2) /100WBC Sodium (135-145) mmol/L Potassium (3.3-5.1) mmol/L Chloride (96-108) mmol/L Carbon Dioxide (22-29) mmol/L Anion Gap (12-20) BUN (9-16) mg/dL Creatinine (0.5-1.4) mg/dL Estim Creat Clear Calc Estimated GFR Random Glucose (60-115) mg/dL Lactic Acid 1.1 (0.5-2.0) mmol/L Calcium (8.4-10.2) mg/dL Total Bilirubin (0.0-1.0) mg/dL AST (5-31) U/L ALT (0-31) U/L Alkaline Phosphatase (39-117) U/L Total Protein (6.5-8.0) g/dL Albumin (3.5-5.0) g/dL Lipase (8-78) U/L Beta HCG, Quant mIU/mL Urine Color Urine Appearance Urine pH (5.0-8.0) Ur Specific [place] (1.005-1.025) Urine Protein (NEG-TRACE) MG/DL Urine Glucose (UA) (NEG) MG/DL Urine Ketones (NEG) MG/DL Urine Blood (NEG) Urine Nitrite (NEG) Ur Leukocyte Esterase (NEG) Urine RBC (0) /HPF Urine WBC (0-4) /HPF Ur Squamous Epith Cells /LPF Ur Renal Epithelial Cell /LPF Amorphous Sediment /LPF Urine Bacteria /LPF Urine Mucus /LPF Discharge Plan Discharge Clinical Impression: Abdominal pain, Cervical mass, Cholelithiasis, Microcytic anemia Patient Disposition: Home, Self-Care Instructions: Iron Deficiency Anemia (ED), Abdominal Pain (ED) Additional Instructions: Your laboratory evaluation revealed that your anemia, this is most likely caused by low iron. Take ferrous sulfate 325 mg pills, 1 pill 3 times a day for 3 months to improve your anemia. Your CT scan did not reveal a clear cause for your left upper quadrant abdominal pain. Take Tylenol (acetaminophen) 500 mg pills, 2 pills every 4-6 hours as needed for pain. For pain not relieved by Tylenol take oxycodone 5 mg pills, 1 pill every 4 hours as needed for pain. Do not drive or work while taking this medication since they can cause sleepiness. Oxycodone is a narcotic medication that can be addicting. If you are concerned about addiction you can ask the pharmacist for less pills or do not get this prescription filled. Take Zofran ODT 4 mg pills, 1 pill dissolved in your mouth every 8 hours as needed for nausea and vomiting. The CT scan revealed 2 incidental findings: 1) gallstones, this is not causing her pain. 2) a cervical mass, it is important that you see your metal finish inspector to make sure that this is not cervical cancer. Follow-up with your doctor in 2 days. Please return to the emergency department if your symptoms get worse or if you develop any symptoms that are concerning to you. Prescriptions: New ondansetron 4 mg tablet,disintegrating 4 mg PO Q6-8H PRN (Reason: nausea and vomiting) Qty: 14 RF: 0 oxycodone 5 mg tablet 5 mg PO Q4H PRN (Reason: pain) Qty: 14 RF: 0 ferrous sulfate 325 mg (65 mg iron) tablet 325 mg PO TID 60 Days Qty: 180 RF: 0 No Action lamotrigine 150 mg Tablet 150 mg PO DAILY RF: 0 doxepin 50 mg Capsule 50 mg PO DAILY RF: 0 verapamil 40 mg Tablet 40 mg PO DAILY RF: 0 pantoprazole 40 mg Tablet,Delayed Release (Dr/Ec) 40 mg PO DAILY RF: 0 ondansetron 4 mg Tablet,Disintegrating 4 mg PO Q6H PRN (Reason: Nausea And Vomiting) RF: 0 multivitamin Capsule RF: 0 olanzapine [Zyprexa] 20 mg Tablet 20 mg PO DAILY RF: 0 cholecalciferol (vitamin D3) [Vitamin D3] 25 mcg (1,000 unit) Capsule 25 mcg PO DAILY RF: 0 ferrous sulfate 324 mg (65 mg iron) Tablet,Delayed Release (Dr/Ec) 324 mg PO DAILY RF: 0 sulfamethoxazole-trimethoprim [Bactrim DS] 800-160 mg tablet 1 tab PO BID Qty: 14 RF: 0 nitrofurantoin monohyd/m-cryst [Macrobid] 100 mg capsule 100 mg PO Q12H 7 Days Qty: 14 RF: 0 tranexamic acid 650 mg tablet 650 mg PO BID 5 Days Qty: 10 RF: 0 PMFSH Past Medical History PMFSH Narrative: Social history: She denies tobacco, alcohol and drug use. Medical History Anxiety Bipolar 1 disorder delivery delivered PTSD (post-traumatic stress disorder) Surgical History Gastric bypass status for obesity Tubal ligation status Social History Social History Alcohol intake: unknown Patient Tobacco Use Status: Never used Tobacco Advance Directives: No Advance Directives Information Provided: No Patient : No
[2021-04-28] MEDS: 0.9 % Sodium Chloride 1,000 ML 999 ML IV (20:33)
[2021-04-28 20:39] LABS: MANUAL DIFF FLAG NO
[2021-04-28 20:41] LABS: Basophils Percent Auto 0.3 % (0-2); Eosinophils Percent Auto 0.4 % (0-4); Hematocrit 33.1 % (37-47); Hemoglobin 10.1 g/dl (12.0-16.0); Imm Gran Abs Auto 0.01 X10*3/uL (0.00-0.03); Imm Gran Pct Auto 0.1 % (0.0-0.4); Lymphocytes Absolute Auto 2.3 X10*3/uL (1.2-4.9); Lymphocytes Percent Auto 30.1 % (20-40); Mean Corpuscular HGB Conc 30.5 g/dl (31.0-35.0); Mean Corpuscular Hemoglobin 22.4 pg (27.0-33.0); Mean Corpuscular Volume 73.6 fL (80-98); Mean Platelet Volume 9.2 fL (9.4-12.3); Monocytes Absolute Auto 0.5 X10*3/uL (0.1-1.2); Monocytes Percent Auto 6.2 % (2-11); Neutrophils Absolute Auto 4.8 X10*3/uL (2.0-8.3); Neutrophils Percent Auto 62.9 % (45-73); Platelet Count 395 X10*3/uL (160-400); Red Cell Distribution Width 15.4 % (11.0-16.0); White Blood Count 7.7 X10*3/uL (4.8-10.8)
[2021-04-28 20:51] LABS: Lactic Acid 1.1 mmol/L (0.5-2.0)
[2021-04-28 20:55] LABS: Alanine Aminotransferase 13 U/L (0-31); Albumin Level 4.4 g/dL (3.5-5.0); Alkaline Phosphatase 111 U/L (39-117); Anion Gap 15 (12-20); Aspartate Amino Transferase 15 U/L (5-31); Bilirubin Total 0.4 mg/dL (0.0-1.0); Blood Urea Nitrogen 9 mg/dL (9-16); Calcium 9.3 mg/dL (8.4-10.2); Carbon Dioxide 22 mmol/L (22-29); Chloride 105 mmol/L (96-108); Creatinine Clr Calc Pharmacy 118.9; Estimated Glomerular Filt Rate > 60; Glucose Random 91 mg/dL (60-115); Lipase 16 U/L (8-78); Potassium 3.8 mmol/L (3.3-5.1); Sodium 138 mmol/L (135-145); Total Protein 7.1 g/dL (6.5-8.0)
[2021-04-28 21:03] LABS: HCG Quantitative < 2 mIU/mL
[2021-04-28] MEDS: iohexoL 350 MG/ML 100 ML INFUS..BTL IV (21:24)
[2021-04-28] MEDS: ondansetron HCL 4 MG/2 ML VIAL IVPUSH (21:39)
== END 2021-04-28 22:31 | disposition home or self-care (01) ==
PROVIDERS: Emergency Provider Emergency Medicine Emergency Medical Services; PCP Internal Medicine
DX: K80.20 Calculus of gallbladder without cholecystitis without obstruction (principal); R19.00 Intra-abdominal and pelvic swelling, mass and lump, unspecified site; R10.12 Left upper quadrant pain; D50.9 Iron deficiency anemia, unspecified; Z79.899 Other long term (current) drug therapy
CPT/HCPCS: 36415; 74177; 80053; 81001; 83605; 83690; 84702; 85025; 87086; 96361; 96374; 99283; 99284; J2405; Q9967

== ENCOUNTER 2021-05-14 20:29 | Emergency (ER) | payer MEDICARE, MEDICAID, SELFPAY ==
--- NOTE | ~2021-05-14 | CT_ITS ---
EXAMINATION: CT ABDOMEN AND PELVIS WITH CONTRAST CLINICAL INFORMATION: Epigastric pain. History of bariatric surgery. COMPARISON: 04/28/2021 TECHNIQUE: Multidetector volumetric images were obtained from the superior aspect of the liver through the pubic symphysis following administration 85 mL of Omnipaque 350 intravenous contrast. Sagittal and coronal reformatted images were obtained on the technologist's workstation. Oral contrast: No This CT examination was performed using dose optimization techniques as appropriate, variously including the following: *Automated exposure control *Adjustment of mA and/or kV according to patient size (this includes techniques or standardized protocols for targeted exams where dose is matched to indication/reason for exam; i.e. extremities or head) *Use of iterative reconstruction technique DLP: 995 mGy-cm FINDINGS: LUNG BASES: The visualized lung bases are unremarkable. LIVER, GALLBLADDER, AND BILIARY TREE: The liver is normal in size, shape, and attenuation. No focal hepatic lesion or biliary ductal dilatation is present. Small stones in the gallbladder lumen. No wall thickening or pericholecystic fluid. PANCREAS: Unremarkable. SPLEEN: Unremarkable. ADRENAL GLANDS: Unremarkable. KIDNEYS AND URETERS: The kidneys are normal in size, shape, and attenuation. No hydronephrosis or hydroureter. 0.3 cm left lower pole renal calculus is 10.5 cm from the posterior axillary line. BLADDER: Unremarkable. GASTROINTESTINAL TRACT: Postsurgical changes of Rafi-en-Y gastric bypass. No bowel obstruction. No colonic wall thickening or inflammatory change. Normal appendix. No free air or free fluid. ABDOMINAL WALL: No significant hernia is appreciated. LYMPH NODES: Normal. VASCULAR: Unremarkable. PELVIC VISCERA: Anteverted uterus. Expansile appearance of the cervix again noted with heterogeneous enhancement. This is consistent with the previously visualized cervical mass. Dominant left adnexal cyst measuring 6.4 x 4.6 cm. This is new from prior. OSSEOUS STRUCTURES: No acute or suspicious osseous abnormality. Degenerative changes of the spine. CT/CT abdomen pelvis w con IMPRESSION: 1. No acute inflammatory changes. No obstruction. 2. Redemonstration of the heterogeneous expansion of the cervix consistent with previously visualized cervical mass. 3. 6.4 cm left adnexal cyst which is simple appearing. Follow-up ultrasound in 6-12 months recommended. 4. Cholelithiasis.
[2021-05-14 21:54] VITALS: BP 121/72; PULSE 78; RESP 16; TEMP 36.6; O2SAT 98; BMI 31.7
[2021-05-14 22:04] LABS: Appearance Urine HAZY; Color Urine STRAW; Glucose Urine UA NEG (NEG); Leukocyte Esterase Urine 1+ (NEG); Nitrite Urine NEG (NEG); Specific Gravity - Urine <= 1.005 (1.005-1.025); UACC Culture Trigger YES; Urine Blood TRACE (NEG); Urine Ketones NEG (NEG); Urine Protein TRACE MG/DL (NEG-TRACE)
[2021-05-14 22:06] LABS: UPreg QC Valid YES; Urine Pregnancy NEGATIVE (NEGATIVE)
[2021-05-14 22:11] LABS: Mucus Urine TRACE /LPF; Squamous Epithelial Cell Urine 2+ /LPF
[2021-05-14 22:12] LABS: Bacteria Urine TRACE /LPF; RBC Urine 0-2 /HPF (0)
--- NOTE | 2021-05-14 22:47 | ED.ABDPAIN ---
HPI - Abdominal Pain General Chief Complaint: Abdominal Pain Stated Complaint: abd pain, vomiting Time Seen by Provider: 05/14/21 22:16 Source: patient and old records reviewed Mode of arrival: ambulatory Limitations: no limitations History of Present Illness HPI narrative: 04/28 CT scan larger cervical mass 7.2 cm recommended [facility] consultation MD elicited complaint: abdominal pain Pertinent past history: other (gastric bypass surgery april 2020 - [facility]) Onset (ago): day(s) (7) Pain Consistency: intermittent Location: epigastric Severity: moderate Quality: stabbing Radiation: other (across abdomen to the back) Migration to: no migration Exacerbating factors: nothing Relieving factors: nothing Context: history of similar episodes Associated symptoms: nausea and vomiting Related Data Home Medications Medication Instructions Recorded Confirmed cholecalciferol (vitamin D3) 25 25 mcg PO DAILY 10/22/20 10/22/20 mcg (1,000 unit) capsule (Vitamin D3) doxepin 50 mg capsule 50 mg PO DAILY 10/22/20 10/22/20 ferrous sulfate 324 mg (65 mg 324 mg PO DAILY 10/22/20 10/22/20 iron) tablet,delayed release lamotrigine 150 mg tablet 150 mg PO DAILY 10/22/20 10/22/20 multivitamin cap 10/22/20 olanzapine 20 mg tablet (Zyprexa) 20 mg PO DAILY 10/22/20 10/22/20 ondansetron 4 mg disintegrating 4 mg PO Q6H PRN 10/22/20 10/22/20 tablet pantoprazole 40 mg tablet,delayed 40 mg PO DAILY 10/22/20 10/22/20 release verapamil 40 mg tablet 40 mg PO DAILY 10/22/20 10/22/20 Previous Rx's Medication Instructions Recorded sulfamethoxazole 800 1 tab PO BID #14 tab 10/22/20 mg-trimethoprim 160 mg tablet (Bactrim DS) nitrofurantoin 100 mg PO Q12H 7 Days #14 cap 03/11/21 monohydrate/macrocrystals 100 mg capsule (Macrobid) tranexamic acid 650 mg tablet 650 mg PO BID 5 Days #10 tab 03/11/21 ferrous sulfate 325 mg (65 mg 325 mg PO TID 60 Days #180 tab 04/28/21 iron) tablet ondansetron 4 mg disintegrating 4 mg PO Q6-8H PRN #14 tab 04/28/21 tablet oxycodone 5 mg tablet 5 mg PO Q4H PRN #14 tab 04/28/21 morphine 15 mg immediate release 15 mg PO Q6H PRN 3 Days #8 tab 05/15/21 tablet nitrofurantoin 100 mg PO BID 7 Days #14 cap 05/15/21 monohydrate/macrocrystals 100 mg capsule (Macrobid) ondansetron 4 mg disintegrating 4 mg PO Q8H PRN #20 tab 05/15/21 tablet Allergies Allergy/AdvReac Type Severity Reaction Status Date / Time Penicillins Allergy Mild HIVES Verified 05/14/21 21:54 naproxen [NAPROXEN] Allergy Unknown BLEEDING Verified 05/14/21 21:54 penicillin V Allergy Unknown Hives Verified 05/14/21 21:54 Review of Systems Review of Systems Constitutional : No Weight loss, No Fever, No Chills ENT/Mouth : No sore throat, No Rhinorrhea Eyes: No Swelling, No Redness Cardiovascular : No Chest Pain, No SOB, NoEdema Respiratory : No Cough, No Sputum, No Wheezing Gastrointestinal : Positive Nausea, Positive Vomiting, no Diarrhea, positive abdominal Pain, No Hematochezia, No Melena Genitourinary : No Dysuria, No Urinary Frequency, No Hematuria, No Urgency Musculoskeletal : No joint pain, No Myalgias, No Joint Swelling Skin : No Skin Lesions, No rash Neuro : No Weakness, No Numbness, No Dizziness, No Headache Psych : No Anxiety/Panic, No Depression Heme/Lymph: No Bruising, No Lymphadenopathy Endocrine : No Polyuria, No Polydipsia All other systems reviewed and are negative. Physical Exam Vital Signs: Vital Signs: Last Vital Signs Temp 98.1 F 05/14/21 22:57 Pulse 76 05/15/21 00:00 Resp 16 05/15/21 00:00 BP 123/79 05/15/21 00:00 Pulse Ox 98 05/15/21 00:00 Body Mass Index 31.7 Appearance: Alert. Oriented X3. No acute distress. Eyes: Pupils equal, round and reactive to light. ENT: Pharynx normal. Neck: Normal inspection. Neck supple. CVS: Normal heart rate and rhythm. Pulses normal. Respiratory: No respiratory distress. Breath sounds normal. Abdomen: Soft and mild epigastric ttp no mass felt Skin: Skin warm and dry. Normal skin color. Normal skin turgor. Extremities: No lower extremity edema. No calf ttp Neuro: Oriented X 3. No motor deficit. No sensory deficit. Course Course Course Narrative: +gallstones, +UA, stable labs not toxic no vomiting here can be DC home MDM - Abdominal Pain MDM Narrative Medical decision making narrative: 41 yo female with hx of anxiety, bipolar s/p gastric bypass 04/2020 at [facility] reports epigastric pain that wraps around with n/v + flatus and BM no precipitatig events. At this time will need labs, IVF, IV morphine for pain, CT scan for obstruction/evaluate GB. She has seen her [facility] for cervical mass plan is for hysterectomy. Dispo per results and findings. Lab Data Result diagrams: 05/14/21 23:14 05/14/21 23:14 Labs: Lab Results 05/14/21 05/14/21 05/14/21 Range/Units 21:52 21:52 23:14 WBC 8.8 (4.8-10.8) X10*3/uL RBC 4.21 (4.20-5.50) X10*6/uL Hgb 9.7 L (12.0-16.0) g/dl Hct 31.1 L (37.0-47.0) % MCV 73.9 L (80.0-98.0) fL MCH 23.0 L (27.0-33.0) pg MCHC 31.2 (31.0-35.0) g/dl RDW 19.2 H (11.0-16.0) % Plt Count 375 (160-400) X10*3/uL MPV 9.1 L (9.4-12.3) fL Immature Gran % (Auto) 0.2 (0.0-0.4) % Neut % (Auto) 54.4 (45-73) % Lymph % (Auto) 36.9 (20-40) % [place] % (Auto) 7.2 (2-11) % Eos % (Auto) 0.8 (0-4) % Baso % (Auto) 0.5 (0-2) % Lymph # (Auto) 3.3 (1.2-4.9) X10*3/uL [place] # (Auto) 0.6 (0.1-1.2) X10*3/uL Eos # (Auto) 0.1 (0.0-0.4) X10*3/uL Baso # (Auto) 0.0 (0.0-0.2) X10*3/uL Abs Immat Gran (auto) 0.02 (0.00-0.03) X10*3/uL Absolute Neuts (auto) 4.8 (2.0-8.3) x10*3/uL Absolute Nucleated RBC 0.000 (0.0-0.012) X10*3/uL Nucleated RBC % (auto) 0.0 (0.0-0.2) /100WBC Sodium (135-145) mmol/L Potassium (3.3-5.1) mmol/L Chloride (96-108) mmol/L Carbon Dioxide (22-29) mmol/L Anion Gap (12-20) BUN (9-16) mg/dL Creatinine (0.5-1.4) mg/dL Estim Creat Clear Calc Estimated GFR Random Glucose (60-115) mg/dL Lactic Acid (0.5-2.0) mmol/L Calcium (8.4-10.2) mg/dL Magnesium (1.6-2.6) mg/dL Total Bilirubin (0.0-1.0) mg/dL Direct Bilirubin (0.0-0.5) mg/dL AST (5-31) U/L ALT (0-31) U/L Alkaline Phosphatase (39-117) U/L Total Protein (6.5-8.0) g/dL Albumin (3.5-5.0) g/dL Lipase (8-78) U/L Urine Color STRAW Urine Appearance HAZY Urine pH 6.0 (5.0-8.0) Ur Specific [place] <= 1.005 (1.005-1.025) Urine Protein TRACE (NEG-TRACE) MG/DL Urine Glucose (UA) NEG (NEG) MG/DL Urine Ketones NEG (NEG) MG/DL Urine Blood TRACE (NEG) Urine Nitrite NEG (NEG) Ur Leukocyte Esterase 1+ H (NEG) Urine RBC 0-2 (0) /HPF Urine WBC 15-29 H (0-4) /HPF Ur Squamous Epith Cells 2+ /LPF Urine Bacteria TRACE /LPF Urine Mucus TRACE /LPF Urine Test NEGATIVE (NEGATIVE) 05/14/21 05/14/21 Range/Units 23:14 23:14 WBC (4.8-10.8) X10*3/uL RBC (4.20-5.50) X10*6/uL Hgb (12.0-16.0) g/dl Hct (37.0-47.0) % MCV (80.0-98.0) fL MCH (27.0-33.0) pg MCHC (31.0-35.0) g/dl RDW (11.0-16.0) % Plt Count (160-400) X10*3/uL MPV (9.4-12.3) fL Immature Gran % (Auto) (0.0-0.4) % Neut % (Auto) (45-73) % Lymph % (Auto) (20-40) % [place] % (Auto) (2-11) % Eos % (Auto) (0-4) % Baso % (Auto) (0-2) % Lymph # (Auto) (1.2-4.9) X10*3/uL [place] # (Auto) (0.1-1.2) X10*3/uL Eos # (Auto) (0.0-0.4) X10*3/uL Baso # (Auto) (0.0-0.2) X10*3/uL Abs Immat Gran (auto) (0.00-0.03) X10*3/uL Absolute Neuts (auto) (2.0-8.3) x10*3/uL Absolute Nucleated RBC (0.0-0.012) X10*3/uL Nucleated RBC % (auto) (0.0-0.2) /100WBC Sodium 139 (135-145) mmol/L Potassium 3.8 (3.3-5.1) mmol/L Chloride 108 (96-108) mmol/L Carbon Dioxide 25 (22-29) mmol/L Anion Gap 10 L (12-20) BUN 9 (9-16) mg/dL Creatinine 0.65 (0.5-1.4) mg/dL Estim Creat Clear Calc 144.4 Estimated GFR > 60 Random Glucose 90 (60-115) mg/dL Lactic Acid 0.7 (0.5-2.0) mmol/L Calcium 8.8 (8.4-10.2) mg/dL Magnesium 1.9 (1.6-2.6) mg/dL Total Bilirubin 0.3 (0.0-1.0) mg/dL Direct Bilirubin 0.2 (0.0-0.5) mg/dL AST 17 (5-31) U/L ALT 16 (0-31) U/L Alkaline Phosphatase 107 (39-117) U/L Total Protein 6.0 L (6.5-8.0) g/dL Albumin 3.8 (3.5-5.0) g/dL Lipase 21 (8-78) U/L Urine Color Urine Appearance Urine pH (5.0-8.0) Ur Specific [place] (1.005-1.025) Urine Protein (NEG-TRACE) MG/DL Urine Glucose (UA) (NEG) MG/DL Urine Ketones (NEG) MG/DL Urine Blood (NEG) Urine Nitrite (NEG) Ur Leukocyte Esterase (NEG) Urine RBC (0) /HPF Urine WBC (0-4) /HPF Ur Squamous Epith Cells /LPF Urine Bacteria /LPF Urine Mucus /LPF Urine Test (NEGATIVE) Discharge Plan Discharge Clinical Impression: Abdominal pain, UTI (urinary tract infection), Cholelithiasis, Ovarian cyst Patient Disposition: Home, Self-Care Instructions: Gallstones (ED), Urinary Tract Infection in Women (ED), Abdominal Pain (ED), Ovarian Cyst (ED) Additional Instructions: return to ED for any worsening symptoms or concerns Prescriptions: New morphine 15 mg tablet 15 mg PO Q6H PRN (Reason: pain) 3 Days Qty: 8 RF: 0 ondansetron 4 mg tablet,disintegrating 4 mg PO Q8H PRN (Reason: nausea and vomiting) Qty: 20 RF: 0 nitrofurantoin monohyd/m-cryst [Macrobid] 100 mg capsule 100 mg PO BID 7 Days Qty: 14 RF: 0 No Action lamotrigine 150 mg Tablet 150 mg PO DAILY RF: 0 doxepin 50 mg Capsule 50 mg PO DAILY RF: 0 verapamil 40 mg Tablet 40 mg PO DAILY RF: 0 pantoprazole 40 mg Tablet,Delayed Release (Dr/Ec) 40 mg PO DAILY RF: 0 ondansetron 4 mg Tablet,Disintegrating 4 mg PO Q6H PRN (Reason: Nausea And Vomiting) RF: 0 multivitamin Capsule RF: 0 olanzapine [Zyprexa] 20 mg Tablet 20 mg PO DAILY RF: 0 cholecalciferol (vitamin D3) [Vitamin D3] 25 mcg (1,000 unit) Capsule 25 mcg PO DAILY RF: 0 ferrous sulfate 324 mg (65 mg iron) Tablet,Delayed Release (Dr/Ec) 324 mg PO DAILY RF: 0 sulfamethoxazole-trimethoprim [Bactrim DS] 800-160 mg tablet 1 tab PO BID Qty: 14 RF: 0 nitrofurantoin monohyd/m-cryst [Macrobid] 100 mg capsule 100 mg PO Q12H 7 Days Qty: 14 RF: 0 tranexamic acid 650 mg tablet 650 mg PO BID 5 Days Qty: 10 RF: 0 ondansetron 4 mg tablet,disintegrating 4 mg PO Q6-8H PRN (Reason: nausea and vomiting) Qty: 14 RF: 0 oxycodone 5 mg tablet 5 mg PO Q4H PRN (Reason: pain) Qty: 14 RF: 0 ferrous sulfate 325 mg (65 mg iron) tablet 325 mg PO TID 60 Days Qty: 180 RF: 0 Referrals: Weston Argueta MD [Physician] - 2 weeks [facility] Past Medical History Attestation statement: The following information was validated with the patient. Medical History Anxiety Bipolar 1 disorder delivery delivered PTSD (post-traumatic stress disorder) Surgical History Gastric bypass status for obesity Tubal ligation status Social History Social History Alcohol intake: unknown Patient Tobacco Use Status: Never used Tobacco Advance Directives: No
[2021-05-14 22:57] VITALS: BP 126/72; PULSE 84; RESP 18; TEMP 36.7; O2SAT 97
[2021-05-14 23:17] VITALS: RESP 16
[2021-05-14] MEDS: Morphine Sulfate 4 MG/ML CARTRIDGE IVPUSH (23:17)
[2021-05-14] MEDS: ondansetron HCL 4 MG/2 ML VIAL IVPUSH (23:17)
[2021-05-14] MEDS: 0.9 % Sodium Chloride 1,000 ML 999 ML IVCONT (23:17)
[2021-05-14] MEDS: Famotidine/PF 20 MG/2 ML VIAL IVPUSH (23:17)
[2021-05-14 23:19] LABS: MANUAL DIFF FLAG NO
[2021-05-14 23:20] LABS: Basophils Percent Auto 0.5 % (0-2); Eosinophils Absolute Auto 0.1 X10*3/uL (0.0-0.4); Eosinophils Percent Auto 0.8 % (0-4); Hematocrit 31.1 % (37.0-47.0); Hemoglobin 9.7 g/dl (12.0-16.0); Imm Gran Abs Auto 0.02 X10*3/uL (0.00-0.03); Imm Gran Pct Auto 0.2 % (0.0-0.4); Lymphocytes Absolute Auto 3.3 X10*3/uL (1.2-4.9); Lymphocytes Percent Auto 36.9 % (20-40); Mean Corpuscular HGB Conc 31.2 g/dl (31.0-35.0); Mean Corpuscular Volume 73.9 fL (80.0-98.0); Mean Platelet Volume 9.1 fL (9.4-12.3); Monocytes Absolute Auto 0.6 X10*3/uL (0.1-1.2); Monocytes Percent Auto 7.2 % (2-11); Neutrophils Absolute Auto 4.8 x10*3/uL (2.0-8.3); Neutrophils Percent Auto 54.4 % (45-73); Platelet Count 375 X10*3/uL (160-400); Red Blood Count 4.21 X10*6/uL (4.20-5.50); Red Cell Distribution Width 19.2 % (11.0-16.0); White Blood Count 8.8 X10*3/uL (4.8-10.8)
[2021-05-14 23:29] LABS: Lactic Acid 0.7 mmol/L (0.5-2.0)
[2021-05-14 23:51] LABS: Alanine Aminotransferase 16 U/L (0-31); Albumin Level 3.8 g/dL (3.5-5.0); Alkaline Phosphatase 107 U/L (39-117); Anion Gap 10 (12-20); Aspartate Amino Transferase 17 U/L (5-31); Bilirubin Direct 0.2 mg/dL (0.0-0.5); Bilirubin Total 0.3 mg/dL (0.0-1.0); Blood Urea Nitrogen 9 mg/dL (9-16); Calcium 8.8 mg/dL (8.4-10.2); Carbon Dioxide 25 mmol/L (22-29); Chloride 108 mmol/L (96-108); Creatinine Clr Calc Pharmacy 144.4; Estimated Glomerular Filt Rate > 60; Glucose Random 90 mg/dL (60-115); Lipase 21 U/L (8-78); Magnesium 1.9 mg/dL (1.6-2.6); Potassium 3.8 mmol/L (3.3-5.1); Sodium 139 mmol/L (135-145)
[2021-05-15] VITALS: BP 123/79; PULSE 76; RESP 16; O2SAT 98
--- NOTE | 2021-05-15 00:14 | PC.NURSE ---
Pt reports no change to her sharp/stabbing abd pain s/p meds.
[2021-05-15] MEDS: iohexoL 350 MG/ML 100 ML INFUS..BTL 85 ML IV (01:09)
[2021-05-15 02:28] VITALS: BP 120/79; PULSE 77; RESP 18; O2SAT 98
[2021-05-15] MEDS: Nitrofurantoin Monohyd/M-Cryst 100 MG CAPSULE PO (02:28)
== END 2021-05-15 02:34 | disposition home or self-care (01) ==
PROVIDERS: Emergency Provider Emergency Medicine; PCP Internal Medicine
DX: N39.0 Urinary tract infection, site not specified (principal); K80.20 Calculus of gallbladder without cholecystitis without obstruction; N83.209 Unspecified ovarian cyst, unspecified side; Z98.84 Bariatric surgery status
CPT/HCPCS: 36415; 74177; 80048; 80076; 81001; 81025; 83605; 83690; 83735; 85025; 87086; 96361; 96374; 96375; 99284; J2270; J2405; Q9967

== ENCOUNTER 2021-05-27 21:47 | Emergency (ER) | payer MEDICARE, MEDICAID, SELFPAY ==
[2021-05-27 22:30] VITALS: BP 123/68; PULSE 84; RESP 18; TEMP 36.9; O2SAT 98; BMI 32.3
[2021-05-27 22:57] LABS: MANUAL DIFF FLAG NO
[2021-05-27 22:58] LABS: Appearance Urine HAZY; Basophils Percent Auto 0.4 % (0-2); Color Urine YELLOW; Eosinophils Absolute Auto 0.1 X10*3/uL (0.0-0.4); Eosinophils Percent Auto 0.8 % (0-4); Glucose Urine UA NEG (NEG); Hematocrit 35.1 % (37.0-47.0); Hemoglobin 10.6 g/dl (12.0-16.0); Imm Gran Abs Auto 0.03 X10*3/uL (0.00-0.03); Imm Gran Pct Auto 0.3 % (0.0-0.4); Leukocyte Esterase Urine NEG (NEG); Lymphocytes Absolute Auto 2.5 X10*3/uL (1.2-4.9); Lymphocytes Percent Auto 26.5 % (20-40); Mean Corpuscular HGB Conc 30.2 g/dl (31.0-35.0); Mean Corpuscular Hemoglobin 22.9 pg (27.0-33.0); Mean Corpuscular Volume 75.8 fL (80.0-98.0); Monocytes Absolute Auto 0.7 X10*3/uL (0.1-1.2); Monocytes Percent Auto 7.1 % (2-11); Neutrophils Absolute Auto 6.2 x10*3/uL (2.0-8.3); Neutrophils Percent Auto 64.9 % (45-73); Nitrite Urine NEG (NEG); Platelet Count 432 X10*3/uL (160-400); Red Blood Count 4.63 X10*6/uL (4.20-5.50); Red Cell Distribution Width 17.8 % (11.0-16.0); Specific Gravity - Urine >= 1.030 (1.005-1.025); UACC Culture Trigger NO; Urine Blood 3+ (NEG); Urine Ketones NEG (NEG); Urine Protein 1+ MG/DL (NEG-TRACE); White Blood Count 9.6 X10*3/uL (4.8-10.8)
[2021-05-27 23:01] LABS: UPreg QC Valid YES; Urine Pregnancy NEGATIVE (NEGATIVE)
[2021-05-27 23:06] LABS: Bacteria Urine 1+ /LPF; RBC Urine 30-49 /HPF (0); Squamous Epithelial Cell Urine 1+ /LPF; UACC CULT YES
[2021-05-27 23:13] LABS: Alanine Aminotransferase 18 U/L (0-31); Albumin Level 4.1 g/dL (3.5-5.0); Alkaline Phosphatase 103 U/L (39-117); Anion Gap 13 (12-20); Aspartate Amino Transferase 19 U/L (5-31); Bilirubin Total 0.2 mg/dL (0.0-1.0); Blood Urea Nitrogen 12 mg/dL (9-16); Calcium 9.2 mg/dL (8.4-10.2); Carbon Dioxide 26 mmol/L (22-29); Chloride 106 mmol/L (96-108); Creatinine Clr Calc Pharmacy 135.3; Estimated Glomerular Filt Rate > 60; Glucose Random 88 mg/dL (60-115); Potassium 3.9 mmol/L (3.3-5.1); Sodium 141 mmol/L (135-145); Total Protein 6.8 g/dL (6.5-8.0)
--- NOTE | 2021-05-27 23:26 | ED.ABDPAIN ---
HPI - Abdominal Pain General Chief Complaint: Abdominal Pain Stated Complaint: Abdominal pain Time Seen by Provider: 05/27/21 23:04 Source: patient and family Mode of arrival: ambulatory Limitations: no limitations History of Present Illness HPI narrative: 41-year-old female with a past medical history of anxiety, depression, bipolar, gastric bypass April of [address] Greer at [facility] here with complaints of left upper abdominal pain for several weeks. Pain is worsened after eating food and is associated with vomiting partially digested food. emesis is nonbloody or nonbilious. patient has diarrhea which is chronic and is unchanged. she denies any constipation, urinary symptoms, fevers or chills. Of note the patient was seen here on May 14 for similar symptoms and had a CT scan of the abdomen which showed gallstones,cervical mass, left ovarian cyst. Patient tells me she knew about the cervical mass and is being followed by Gynecology with plans for an outpatient hysterectomy. She has not followed up with her bariatric surgeon in regards to her pain Related Data Home Medications Medication Instructions Recorded Confirmed cholecalciferol (vitamin D3) 25 25 mcg PO DAILY 10/22/20 10/22/20 mcg (1,000 unit) capsule (Vitamin D3) doxepin 50 mg capsule 50 mg PO DAILY 10/22/20 10/22/20 ferrous sulfate 324 mg (65 mg 324 mg PO DAILY 10/22/20 10/22/20 iron) tablet,delayed release lamotrigine 150 mg tablet 150 mg PO DAILY 10/22/20 10/22/20 multivitamin cap 10/22/20 olanzapine 20 mg tablet (Zyprexa) 20 mg PO DAILY 10/22/20 10/22/20 ondansetron 4 mg disintegrating 4 mg PO Q6H PRN 10/22/20 10/22/20 tablet pantoprazole 40 mg tablet,delayed 40 mg PO DAILY 10/22/20 10/22/20 release verapamil 40 mg tablet 40 mg PO DAILY 10/22/20 10/22/20 Previous Rx's Medication Instructions Recorded sulfamethoxazole 800 1 tab PO BID #14 tab 10/22/20 mg-trimethoprim 160 mg tablet (Bactrim DS) nitrofurantoin 100 mg PO Q12H 7 Days #14 cap 03/11/21 monohydrate/macrocrystals 100 mg capsule (Macrobid) tranexamic acid 650 mg tablet 650 mg PO BID 5 Days #10 tab 03/11/21 ferrous sulfate 325 mg (65 mg 325 mg PO TID 60 Days #180 tab 04/28/21 iron) tablet ondansetron 4 mg disintegrating 4 mg PO Q6-8H PRN #14 tab 04/28/21 tablet oxycodone 5 mg tablet 5 mg PO Q4H PRN #14 tab 04/28/21 morphine 15 mg immediate release 15 mg PO Q6H PRN 3 Days #8 tab 05/15/21 tablet nitrofurantoin 100 mg PO BID 7 Days #14 cap 05/15/21 monohydrate/macrocrystals 100 mg capsule (Macrobid) ondansetron 4 mg disintegrating 4 mg PO Q8H PRN #20 tab 05/15/21 tablet pantoprazole 40 mg tablet,delayed 40 mg PO DAILY #30 tab 05/28/21 release (Protonix) Allergies Allergy/AdvReac Type Severity Reaction Status Date / Time Penicillins Allergy Mild HIVES Verified 05/14/21 21:54 naproxen [NAPROXEN] Allergy Unknown BLEEDING Verified 05/14/21 21:54 penicillin V Allergy Unknown Hives Verified 05/14/21 21:54 Review of Systems Review of Systems Yes all other systems are reviewed and are negative Constitutional: Reports no additional constitutional complaints, Denies body ache(s), Denies chills, Denies fever(s), Denies headache(s) and Denies weakness Eyes: Reports no additional eye complaints and Denies change in vision Reports system reviewed and no additional complaints, except as documented, Denies dizziness, Denies headache(s), Denies nasal congestion, Denies nasal discharge and Denies neck pain Cardiovascular: Reports no additional cardiovascular complaints, Denies chest pain, Denies leg edema and Denies dyspnea Respiratory: Reports no additional respiratory complaints, Denies cough and Denies dyspnea Gastrointestinal: Reports no additional gastrointestinal complaints, Reports abdominal pain, Denies diarrhea, Reports nausea and Reports vomiting Genitourinary: Reports no additional female genitourinary complaints and Denies urinary incontinence Musculoskeletal: Reports no additional musculoskeletal complaints, Denies back pain, Denies arthralgias, Denies joint swelling, Denies neck pain, Denies numbness and Denies tingling Skin/Breast: Reports system reviewed and no additional complaints, except as docu and Denies rash Reports system reviewed and no additional complaints, except as documented, Denies Abnormal speech present, Denies dizziness, Denies headache(s), Denies numbness, Denies tingling and Denies weakness Physical Exam Vital Signs: Vital Signs: Last Vital Signs Temp 98.5 F 05/27/21 22:30 Pulse 84 05/27/21 22:30 Resp 15 05/28/21 00:25 BP 123/68 05/27/21 22:30 Pulse Ox 98 05/27/21 22:30 Body Mass Index 32.3 Const: General: cooperative, healthy appearing, comfortable and no acute distress Orientation/consciousness: patient oriented x3 Limitations: no limitations HENMT: Head: Yes normal to inspection Ears: hearing grossly normal bilaterally General nose exam: Normal external nose present Face and sinus: Yes normal facial exam Mouth: Normal oral and palatal mucosa present Throat: Yes posterior oropharynx normal Eyes: General: appearance normal, both eyes and all related structures Pupils: Equal, round and reactive pupils present Neck: Neck: Yes normal visual inspection Chest: Chest palpation & inspection: normal inspection of the chest Resp: Effort & Inspection: normal respiratory effort Auscultation: clear to auscultation bilaterally Cardio: Rate: regular rate Rhythm: regular rhythm Peripheral pulses: Peripheral pulses 2+ throughout GI: Inspection: Yes normal to inspection Palpation (GI): Soft to palpation and Tenderness to palpation present (GI) ( tenderness in left upper quadrant with no rebound or guarding) Auscultation: normal bowel sounds Back/Spine/Pelvis: Thoracic/Lumbar Spine: thoracic and lumbar spine normal to inspection Skin: General skin exam: no rashes or lesions noted Neuro: General: patient oriented x3, no focal motor deficits and normal sensation to monofilament Cranial nerves: Yes Equal, round and reactive pupils present Cognition (Neuro): normal cognition Speech: No Abnormal speech present Gait exam (Neuro): Normal gait present Motor exam (neuro): 5/5 motor strength present throughout Extrem: General: Yes normal to inspection Course Course Course Narrative: 41-year-old female with a history of gastric bypass here with complaints of left upper quadrant abdominal pain worsened after eating with associated vomiting for the last few weeks. Seen here May 14 and had workup including CT scan, labs and urine. She had a CT scan that showed gallstones, a known cervical mass and a left ovarian cyst. Patient has not followed up with her primary care or her bariatric surgeon. Here with continued symptoms. On exam she has left upper quadrant abdominal pain with no rebound or guarding vitals are stable . will check labs, UA. Will provide analgesia, antiemetics, ppi and reassess 2330- labs are unremarkable. UA shows microscopic hematuria. Patient tells me that she currently has her menses. Overall the patient's exam is benign.. She has some mild tenderness the left upper quadrant with normal labs. I do not feel like she needs to be imaged again today as she had imaging 3 weeks ago. If able to tolerate p.o. and pain is improved the patient can be discharged home with follow-up outpatient with her primary care and her bariatric surgeon Dr. Greer. MDM - Abdominal Pain Differential Diagnosis Differential diagnosis: Likely gastroenteritis, gastritis and pancreatitis Medical Records Attestation: I reviewed the patient's medical records. Lab Data Attestation: I reviewed the patient's lab results. Result diagrams: 05/27/21 22:49 05/27/21 22:49 Labs: Lab Results 05/27/21 05/27/21 05/27/21 Range/Units 22:49 22:49 22:49 WBC 9.6 (4.8-10.8) X10*3/uL RBC 4.63 (4.20-5.50) X10*6/uL Hgb 10.6 L (12.0-16.0) g/dl Hct 35.1 L (37.0-47.0) % MCV 75.8 L (80.0-98.0) fL MCH 22.9 L (27.0-33.0) pg MCHC 30.2 L (31.0-35.0) g/dl RDW 17.8 H (11.0-16.0) % Plt Count 432 H (160-400) X10*3/uL MPV 9.0 L (9.4-12.3) fL Immature Gran % (Auto) 0.3 (0.0-0.4) % Neut % (Auto) 64.9 (45-73) % Lymph % (Auto) 26.5 (20-40) % [place] % (Auto) 7.1 (2-11) % Eos % (Auto) 0.8 (0-4) % Baso % (Auto) 0.4 (0-2) % Lymph # (Auto) 2.5 (1.2-4.9) X10*3/uL [place] # (Auto) 0.7 (0.1-1.2) X10*3/uL Eos # (Auto) 0.1 (0.0-0.4) X10*3/uL Baso # (Auto) 0.0 (0.0-0.2) X10*3/uL Abs Immat Gran (auto) 0.03 (0.00-0.03) X10*3/uL Absolute Neuts (auto) 6.2 (2.0-8.3) x10*3/uL Absolute Nucleated RBC 0.000 (0.0-0.012) X10*3/uL Nucleated RBC % (auto) 0.0 (0.0-0.2) /100WBC Sodium 141 (135-145) mmol/L Potassium 3.9 (3.3-5.1) mmol/L Chloride 106 (96-108) mmol/L Carbon Dioxide 26 (22-29) mmol/L Anion Gap 13 (12-20) BUN 12 (9-16) mg/dL Creatinine 0.70 (0.5-1.4) mg/dL Estim Creat Clear Calc 135.3 Estimated GFR > 60 Random Glucose 88 (60-115) mg/dL Calcium 9.2 (8.4-10.2) mg/dL Total Bilirubin 0.2 (0.0-1.0) mg/dL AST 19 (5-31) U/L ALT 18 (0-31) U/L Alkaline Phosphatase 103 (39-117) U/L Total Protein 6.8 (6.5-8.0) g/dL Albumin 4.1 (3.5-5.0) g/dL Lipase 45 (8-78) U/L Urine Color YELLOW Urine Appearance HAZY Urine pH 6.0 (5.0-8.0) Ur Specific [place] >= 1.030 H (1.005-1.025) Urine Protein 1+ H (NEG-TRACE) MG/DL Urine Glucose (UA) NEG (NEG) MG/DL Urine Ketones NEG (NEG) MG/DL Urine Blood 3+ H (NEG) Urine Nitrite NEG (NEG) Ur Leukocyte Esterase NEG (NEG) Urine RBC 30-49 H (0) /HPF Urine WBC 1-4 (0-4) /HPF Ur Squamous Epith Cells 1+ /LPF Urine Bacteria 1+ /LPF Urine Test (NEGATIVE) 05/27/21 Range/Units 22:49 WBC (4.8-10.8) X10*3/uL RBC (4.20-5.50) X10*6/uL Hgb (12.0-16.0) g/dl Hct (37.0-47.0) % MCV (80.0-98.0) fL MCH (27.0-33.0) pg MCHC (31.0-35.0) g/dl RDW (11.0-16.0) % Plt Count (160-400) X10*3/uL MPV (9.4-12.3) fL Immature Gran % (Auto) (0.0-0.4) % Neut % (Auto) (45-73) % Lymph % (Auto) (20-40) % [place] % (Auto) (2-11) % Eos % (Auto) (0-4) % Baso % (Auto) (0-2) % Lymph # (Auto) (1.2-4.9) X10*3/uL [place] # (Auto) (0.1-1.2) X10*3/uL Eos # (Auto) (0.0-0.4) X10*3/uL Baso # (Auto) (0.0-0.2) X10*3/uL Abs Immat Gran (auto) (0.00-0.03) X10*3/uL Absolute Neuts (auto) (2.0-8.3) x10*3/uL Absolute Nucleated RBC (0.0-0.012) X10*3/uL Nucleated RBC % (auto) (0.0-0.2) /100WBC Sodium (135-145) mmol/L Potassium (3.3-5.1) mmol/L Chloride (96-108) mmol/L Carbon Dioxide (22-29) mmol/L Anion Gap (12-20) BUN (9-16) mg/dL Creatinine (0.5-1.4) mg/dL Estim Creat Clear Calc Estimated GFR Random Glucose (60-115) mg/dL Calcium (8.4-10.2) mg/dL Total Bilirubin (0.0-1.0) mg/dL AST (5-31) U/L ALT (0-31) U/L Alkaline Phosphatase (39-117) U/L Total Protein (6.5-8.0) g/dL Albumin (3.5-5.0) g/dL Lipase (8-78) U/L Urine Color Urine Appearance Urine pH (5.0-8.0) Ur Specific [place] (1.005-1.025) Urine Protein (NEG-TRACE) MG/DL Urine Glucose (UA) (NEG) MG/DL Urine Ketones (NEG) MG/DL Urine Blood (NEG) Urine Nitrite (NEG) Ur Leukocyte Esterase (NEG) Urine RBC (0) /HPF Urine WBC (0-4) /HPF Ur Squamous Epith Cells /LPF Urine Bacteria /LPF Urine Test NEGATIVE (NEGATIVE) Discharge Plan Discharge Clinical Impression: Gastritis Patient Disposition: Home, Self-Care Instructions: Gastritis (ED), Diet for Stomach Ulcers and Gastritis (ED) Additional Instructions: [place] diet Call your bariatric surgeon and follow-up as discussed Prescriptions: New pantoprazole [Protonix] 40 mg tablet,delayed release (DR/EC) 40 mg PO DAILY Qty: 30 RF: 0 No Action lamotrigine 150 mg Tablet 150 mg PO DAILY RF: 0 doxepin 50 mg Capsule 50 mg PO DAILY RF: 0 verapamil 40 mg Tablet 40 mg PO DAILY RF: 0 pantoprazole 40 mg Tablet,Delayed Release (Dr/Ec) 40 mg PO DAILY RF: 0 ondansetron 4 mg Tablet,Disintegrating 4 mg PO Q6H PRN (Reason: Nausea And Vomiting) RF: 0 multivitamin Capsule RF: 0 olanzapine [Zyprexa] 20 mg Tablet 20 mg PO DAILY RF: 0 cholecalciferol (vitamin D3) [Vitamin D3] 25 mcg (1,000 unit) Capsule 25 mcg PO DAILY RF: 0 ferrous sulfate 324 mg (65 mg iron) Tablet,Delayed Release (Dr/Ec) 324 mg PO DAILY RF: 0 sulfamethoxazole-trimethoprim [Bactrim DS] 800-160 mg tablet 1 tab PO BID Qty: 14 RF: 0 nitrofurantoin monohyd/m-cryst [Macrobid] 100 mg capsule 100 mg PO Q12H 7 Days Qty: 14 RF: 0 tranexamic acid 650 mg tablet 650 mg PO BID 5 Days Qty: 10 RF: 0 ondansetron 4 mg tablet,disintegrating 4 mg PO Q6-8H PRN (Reason: nausea and vomiting) Qty: 14 RF: 0 oxycodone 5 mg tablet 5 mg PO Q4H PRN (Reason: pain) Qty: 14 RF: 0 ferrous sulfate 325 mg (65 mg iron) tablet 325 mg PO TID 60 Days Qty: 180 RF: 0 morphine 15 mg tablet 15 mg PO Q6H PRN (Reason: pain) 3 Days Qty: 8 RF: 0 ondansetron 4 mg tablet,disintegrating 4 mg PO Q8H PRN (Reason: nausea and vomiting) Qty: 20 RF: 0 nitrofurantoin monohyd/m-cryst [Macrobid] 100 mg capsule 100 mg PO BID 7 Days Qty: 14 RF: 0 Referrals: Eli Greer MD [Physician] - 2 days PMF Past Medical History Medical History Anxiety Bipolar 1 disorder delivery delivered PTSD (post-traumatic stress disorder) Surgical History Gastric bypass status for obesity Tubal ligation status Social History Social History Alcohol intake: unknown Patient Tobacco Use Status: Never used Tobacco Use of substances other than those prescribed or required for medical reasons: Unknown Advance Directives: No Patient : No
[2021-05-27 23:31] LABS: Lipase 45 U/L (8-78)
[2021-05-28 00:25] VITALS: RESP 15
[2021-05-28] MEDS: Famotidine/PF 20 MG/2 ML VIAL IVPUSH (00:25)
[2021-05-28] MEDS: ondansetron HCL 4 MG/2 ML VIAL IVPUSH (00:25)
[2021-05-28] MEDS: Morphine Sulfate 4 MG/ML CARTRIDGE IVPUSH (00:25)
[2021-05-28] MEDS: 0.9 % Sodium Chloride 1,000 ML 999 ML IV (00:25)
[2021-05-28] MEDS: Lidocaine HCl Viscous 2 % 15 ML SOLUTION MUCOUS MEM (01:34)
[2021-05-28] MEDS: Magnesium Hydrox/Alum Hydrox 30 ML ORAL.SUSP PO (01:34)
== END 2021-05-28 01:46 | disposition home or self-care (01) ==
PROVIDERS: Nurse Practitioner Family; Emergency Provider Emergency Medicine; PCP Internal Medicine
DX: K29.70 Gastritis, unspecified, without bleeding (principal); R10.12 Left upper quadrant pain; Z98.84 Bariatric surgery status
CPT/HCPCS: 36415; 80053; 81001; 81025; 83690; 85025; 87086; 96361; 96374; 96375; 99284; J2270; J2405

== ENCOUNTER 2022-07-27 16:43 | Emergency (ER) | payer MEDICARE, MEDICAID, SELFPAY ==
[2022-07-27 16:47] VITALS: BP 121/60; PULSE 87; RESP 17; TEMP 36.1; O2SAT 98; BMI 35.9
--- NOTE | 2022-07-27 16:47 | ED_ITS ---
HPI - Dizziness General Chief Complaint: Dizziness <Monisha Cleveland CNP - Last Filed: 07/27/22 16:51> Stated Complaint: dizziness, not feeling well <Monisha Cleveland CNP - Last Filed: 07/27/22 16:51> Time Seen by Provider: 07/27/22 18:27 <Monisha Cleveland CNP - Last Filed: 07/27/22 16:51> Source: patient <TARA Davidson - Last Filed: 07/27/22 20:08> Mode of arrival: ambulatory <TARA Davidson - Last Filed: 07/27/22 20:08> Limitations: no limitations <TARA Davidson Last Filed: 07/27/22 20:08> History of Present Illness HPI Narrative: This is 42-year-old history of iron deficiency anemia presenting to the emergency department with complaints of dizziness near syncope fatigue, malaise, x3 days unchanged. Patient tells me that her dizziness feels like the room is spinning. She tells me last time she felt this way she was anemic and they put her on iron supplements which she is currently taking every day. Patient also is reporting a diffuse headache, she tells me that this feels like her typical headache and she tells me she has a history of migraines. Patient denies vision changes, head trauma. Nothing about this headache is different. Patient also reporting intermittent hot flashes and chills. Also reports that when the dizziness is bad she feels like she is going to pass out and foggy . Patient denies chest pain, shortness of breath, vision changes, nausea, vomiting, abdominal pain, sick contacts. Patient eating and drinking per usual <TARA Davidson Last Filed: 07/27/22 20:08> Related Data Home Medications: Home Medications Medication Instructions Recorded Confirmed cholecalciferol (vitamin D3) 25 25 mcg PO DAILY 10/22/20 10/22/20 mcg (1,000 unit) capsule (Vitamin D3) doxepin 50 mg capsule 50 mg PO DAILY 10/22/20 10/22/20 ferrous sulfate 324 mg (65 mg 324 mg PO DAILY 10/22/20 10/22/20 iron) tablet,delayed release lamotrigine 150 mg tablet 150 mg PO DAILY 10/22/20 10/22/20 multivitamin cap 10/22/20 olanzapine 20 mg tablet (Zyprexa) 20 mg PO DAILY 10/22/20 10/22/20 ondansetron 4 mg disintegrating 4 mg PO Q6H PRN Nausea And Vomiting 10/22/20 10/22/20 tablet pantoprazole 40 mg tablet,delayed 40 mg PO DAILY 10/22/20 10/22/20 release verapamil 40 mg tablet 40 mg PO DAILY 10/22/20 10/22/20 Previous Rx's Medication Instructions Recorded sulfamethoxazole 800 1 tab PO BID #14 tabs 10/22/20 mg-trimethoprim 160 mg tablet (Bactrim DS) nitrofurantoin 100 mg PO Q12H 7 days #14 caps 03/11/21 monohydrate/macrocrystals 100 mg capsule (Macrobid) tranexamic acid 650 mg tablet 650 mg PO BID 5 days #10 tabs 03/11/21 ferrous sulfate 325 mg (65 mg 325 mg PO TID 2 months #180 tabs 04/28/21 iron) tablet ondansetron 4 mg disintegrating 4 mg PO Q6-8H PRN nausea and 04/28/21 tablet vomiting #14 tabs oxycodone 5 mg tablet 5 mg PO Q4H PRN pain #14 tabs 04/28/21 morphine 15 mg immediate release 15 mg PO Q6H PRN pain 3 days #8 05/15/21 tablet tabs nitrofurantoin 100 mg PO BID 7 days #14 caps 05/15/21 monohydrate/macrocrystals 100 mg capsule (Macrobid) ondansetron 4 mg disintegrating 4 mg PO Q8H PRN nausea and 05/15/21 tablet vomiting #20 tabs pantoprazole 40 mg tablet,delayed 40 mg PO DAILY #30 tabs 05/28/21 release (Protonix) meclizine 25 mg tablet 25 mg PO BID PRN dizziness #14 tabs 07/27/22 nitrofurantoin 100 mg PO BID 5 days #10 caps 07/27/22 monohydrate/macrocrystals 100 mg capsule (Macrobid) <Monisha Cleveland CNP - Last Filed: 07/27/22 16:51> Allergies/Adverse Reactions: Allergies Allergy/AdvReac Type Severity Reaction Status Date / Time Penicillins Allergy Mild HIVES Verified 07/27/22 16:51 naproxen [NAPROXEN] Allergy Unknown BLEEDING Verified 07/27/22 16:51 penicillin V Allergy Unknown Hives Verified 07/27/22 16:51 <Monisha Cleveland CNP - Last Filed: 07/27/22 16:51> Review of Systems Review of Systems: Constitutional : No Weight loss, No Fever, No Chills, + Fatigue, + Malaise ENT/Mouth : No sore throat, No Rhinorrhea Eyes: No Eye Pain, No Swelling, No Redness Cardiovascular : No Chest Pain, No SOB, No Dyspnea on Exertion, No Orthopnea, No Edema, No Palpitations Respiratory : No Cough, No Sputum, No Wheezing Gastrointestinal : No Nausea, No Vomiting, No Diarrhea, No Constipation, No abdominal Pain, No Hematochezia, No Melena Genitourinary : No Dysuria, No Urinary Frequency, No Hematuria, Musculoskeletal : No joint pain, No Myalgias, No Joint Swelling Skin : No Skin Lesions, No rash Neuro : No Weakness, No Numbness, + Dizziness, + Headache Psych : No Anxiety/Panic, No Depression All other systems reviewed and are negative <TARA Davidson - Last Filed: 07/27/22 20:08> Yes all other systems are reviewed and are negative <TARA Davidson - Last Filed: 07/27/22 20:08> PMFSH Past Medical History Medical History: Medical History Anxiety Bipolar 1 disorder delivery delivered PTSD (post-traumatic stress disorder) <Monisha Cleveland CNP - Last Filed: 07/27/22 16:51> Surgical History: Surgical History Gastric bypass status for obesity Tubal ligation status <Monisha Cleveland CNP - Last Filed: 07/27/22 16:51> Social History Social History: Social History Alcohol intake: unknown Patient Tobacco Use Status: Never used Tobacco Advance Directives: No Advance Directives Information Provided: No <Monisha Cleveland CNP - Last Filed: 07/27/22 16:51> Physical Exam Vital Signs: Vital Signs: Last Vital Signs Temp 97.0 F 07/27/22 16:47 Pulse 81 07/27/22 19:14 Resp 16 07/27/22 19:04 BP 118/70 07/27/22 19:14 Pulse Ox 96 07/27/22 19:04 O2 Del Method 07/27/22 19:04 BMI result Body Mass Index 35.9 <Monisha ClevelandBING - Last Filed: 07/27/22 16:51> Vital Signs: Last Vital Signs Temp 97.0 F 07/27/22 16:47 Pulse 81 07/27/22 19:14 Resp 16 07/27/22 19:04 BP 118/70 07/27/22 19:14 Pulse Ox 96 07/27/22 19:04 O2 Del Method 07/27/22 19:04 BMI result Body Mass Index 35.9 Vital signs stable <TARA Davidson - Last Filed: 07/27/22 20:08> Appearance: Alert.? Oriented X3.? No acute distress.? Head: Normocephalic, atraumatic, no step-offs or deformities Eyes: Pupils equal, round and reactive to light.? Extraocular movements intact no nystagmus CVS: Normal heart rate and rhythm.? Pulses normal.? Respiratory: No respiratory distress.? Breath sounds normal.? Abdomen: Soft and nontender.? Skin: Skin warm and dry.? Normal skin color.? Normal skin turgor.? Extremities: No lower extremity edema.? No calf ttp. 5/5 strength to bilateral upper and lower extremities Back: No midline tenderness, no C-spine tenderness, full range of motion, no CVA tenderness bilaterally Neuro: Oriented X 3.? No motor deficit.? No sensory deficit. CN 2-12 intact . Normal gztghz-gu-szka, tlhv-su-zrga, steady tandem gait with normal coordination. Negative pronator drift and Romberg. <TARA Davidson - Last Filed: 07/27/22 20:08> Course Course Course Narrative: This is an RME: Additional HPI, ROS, PE not included below will be deferred to primary provider. Patient is a 42-year-old female who presents to the emergency department with reports of 3 days with intermittent hot flashes, dizziness described as room spinning, and near-syncopal sensation. States she has felt this way in the past due to anemia, currently taking iron supplements. Also reporting a headache at this time, has hx of migraines, this headache feels consistent with that, no different in any way. Denies fevers, chills, cough, shortness of breath, URI symptoms, chest pain, N/V/D, ABD pain. Denies possibility of , LMP this week. Plan: labs, EKG, viral testing, urinalysis/ urine <Monisha Cleveland CNP - Last Filed: 07/27/22 16:51> Reevaluation(s) Reevaluation #1: Patient's CBC within normal limits. Chemistry with no acute electrolyte abnormalities requiring intervention. Troponin negative, EKG nonischemic. Orthostatic vital signs negative. However patient does report dizziness with positional changes supporting BPPV. UA with infection, when I explained this to patient she tells me she has noticed that she has been peeing more than usual however denies dysuria. Will start her on Macrobid as she has a penicillin allergy. Patient negative for COVID in the flu. Reports some relief with meclizine however still dizzy will give Valium. <TARA Bajwa - Last Filed: 07/27/22 20:08> Time: 20:07 <TARA Davidson - Last Filed: 07/27/22 20:08> Reevaluation #2: Educated patient on diagnosis and treatment plan, answered all question, patient verbalizes understanding. At this time patient will be discharged home, advised to return with new or worsening symptoms. Educated on worrisome signs and symptoms and when to return. At this time I feel comfortable discharge home. <TARA Davidson - Last Filed: 07/27/22 20:08> Time: 20:07 <TARA Davidson - Last Filed: 07/27/22 20:08> Medications Administered Discontinued Medications Generic Name Dose Route Start Last Admin Trade Name Freq PRN Reason Stop Dose Admin Sodium Chloride 1,000 mls @ 999 mls/hr 07/27/22 18:45 07/27/22 19:49 Ns IV 07/27/22 19:45 999 mls/hr .Q1H1M SAM Administration Meclizine HCl 25 mg 07/27/22 18:39 07/27/22 19:38 Meclizine Hcl 25 Mg Tablet PO 07/27/22 18:40 25 mg ONCE ONE Administration <Monisha Maryscott Cleveland CNP - Last Filed: 07/27/22 16:51> Medications Administered Discontinued Medications Generic Name Dose Route Start Last Admin Trade Name Jass PRN Reason Stop Dose Admin Sodium Chloride 1,000 mls @ 999 mls/hr 07/27/22 18:45 07/27/22 19:49 Ns IV 07/27/22 19:45 999 mls/hr .Q1H1M SAM Administration Meclizine HCl 25 mg 07/27/22 18:39 07/27/22 19:38 Meclizine Hcl 25 Mg Tablet PO 07/27/22 18:40 25 mg ONCE ONE Administration <TARA Davidson - Last Filed: 07/27/22 20:08> Medical Decision Making Medical Decision Making [facility] Narrative: 1844 42-year-old female presents with fatigue, malaise, dizziness, headache x3 days. Physical exam benign. Neuro nonfocal. Cerebellar intact. NIH stroke scale 0. Likely vertigo and typical migraine. Unlikely intracranial hemorrhage, stroke, posterior stroke, meningitis, encephalitis. Plan at this time is basic labs, urin, orthostatic vital signs. Will give fluids and meclizine. No need for head CT as patient's neuro is nonfocal and cerebellar is intact. <TARA Davidson Last Filed: 07/27/22 20:08> Differential Diagnosis Differential Diagnoses: The differential diagnosis associated with the presentation includes <TARA Sheets Last Filed: 07/27/22 20:08> Likely vertigo and typical migraine. Unlikely intracranial hemorrhage, stroke, posterior stroke, meningitis, encephalitis. <TARA Davidson Last Filed: 07/27/22 20:08> Admission/Observation Consideration of admission/observation: Escalation of care including admission/observation considered <TARA Davidson Last Filed: 07/27/22 20:08> Lab Data MDM Lab Attestation statement: I reviewed the patient's lab results. <TARA Davidson - Last Filed: 07/27/22 20:08> Result Diagrams: 07/27/22 17:02 07/27/22 17:02 <Monisha Cleveland CNP - Last Filed: 07/27/22 16:51> Labs: Lab Results 07/27/22 07/27/22 07/27/22 Range/Units 17:02 17:02 17:02 WBC 8.1 (4.8-10.8) X10*3/uL RBC 4.46 (4.20-5.50) X10*6/uL Hgb 12.1 (12.0-16.0) g/dl Hct 37.4 (37.0-47.0) % MCV 83.9 (80.0-98.0) fL MCH 27.1 (27.0-33.0) pg MCHC 32.4 (31.0-35.0) g/dl RDW 13.7 (11.0-16.0) % Plt Count 359 (160-400) X10*3/uL MPV 9.1 L (9.4-12.3) fL Immature Gran % (Auto) 1.2 H (0.0-0.4) % Neut % (Auto) 69.6 (45-73) % Lymph % (Auto) 21.2 (20-40) % [place] % (Auto) 6.7 (2-11) % Eos % (Auto) 0.9 (0-4) % Baso % (Auto) 0.4 (0-2) % Lymph # (Auto) 1.7 (1.2-4.9) X10*3/uL [place] # (Auto) 0.5 (0.1-1.2) X10*3/uL Eos # (Auto) 0.1 (0.0-0.4) X10*3/uL Baso # (Auto) 0.0 (0.0-0.2) X10*3/uL Abs Immat Gran (auto) 0.10 H (0.00-0.03) X10*3/uL Absolute Neuts (auto) 5.7 (2.0-8.3) x10*3/uL Absolute Nucleated RBC 0.000 (0.0-0.012) X10*3/uL Nucleated RBC % (auto) 0.0 (0.0-0.2) /100WBC Sodium 141 (135-145) mmol/L Potassium 3.7 (3.3-5.1) mmol/L Chloride 105 (96-108) mmol/L Carbon Dioxide 24 (22-29) mmol/L Anion Gap 16 (12-20) BUN 8 L (9-16) mg/dL Creatinine 0.69 (0.5-1.4) mg/dL Estim Creat Clear Calc 138.8 Estimated GFR > 60 Random Glucose 111 (60-115) mg/dL Calcium 9.0 (8.4-10.2) mg/dL Total Bilirubin 0.4 (0.0-1.0) mg/dL AST 17 (5-31) U/L ALT 14 (0-31) U/L Alkaline Phosphatase 100 (39-117) U/L Troponin I High Sens < 3.5 (<3.5-17.0) ng/L Total Protein 6.3 L (6.5-8.0) g/dL Albumin 4.0 (3.5-5.0) g/dL Urine Color Urine Appearance Urine pH (5.0-9.0) Ur Specific Anna (1.005-1.025) Urine Protein (Neg-Trace) mg/dL Urine Glucose (UA) (Negative) mg/dL Urine Ketones (Negative) mg/dL Urine Blood (Negative) Urine Nitrite (Negative) Ur Leukocyte Esterase (Negative) Urine RBC (0-2) /HPF Urine WBC (0-5) /HPF Ur Squamous Epith Cells (0-2) /HPF Urine Bacteria (None Seen) Hyaline Casts (0-2) /LPF Urine Test (NEGATIVE) COVID-19 (MILAGRO) (Negative) COVID-19 Clin Com Influenza Type A (JONG) (Negative) Influenza Type B (JONG) (Negative) Influenza A & B Note 07/27/22 07/27/22 07/27/22 Range/Units 17:02 17:02 19:13 WBC (4.8-10.8) X10*3/uL RBC (4.20-5.50) X10*6/uL Hgb (12.0-16.0) g/dl Hct (37.0-47.0) % MCV (80.0-98.0) fL MCH (27.0-33.0) pg MCHC (31.0-35.0) g/dl RDW (11.0-16.0) % Plt Count (160-400) X10*3/uL MPV (9.4-12.3) fL Immature Gran % (Auto) (0.0-0.4) % Neut % (Auto) (45-73) % Lymph % (Auto) (20-40) % [place] % (Auto) (2-11) % Eos % (Auto) (0-4) % Baso % (Auto) (0-2) % Lymph # (Auto) (1.2-4.9) X10*3/uL [place] # (Auto) (0.1-1.2) X10*3/uL Eos # (Auto) (0.0-0.4) X10*3/uL Baso # (Auto) (0.0-0.2) X10*3/uL Abs Immat Gran (auto) (0.00-0.03) X10*3/uL Absolute Neuts (auto) (2.0-8.3) x10*3/uL Absolute Nucleated RBC (0.0-0.012) X10*3/uL Nucleated RBC % (auto) (0.0-0.2) /100WBC Sodium (135-145) mmol/L Potassium (3.3-5.1) mmol/L Chloride (96-108) mmol/L Carbon Dioxide (22-29) mmol/L Anion Gap (12-20) BUN (9-16) mg/dL Creatinine (0.5-1.4) mg/dL Estim Creat Clear Calc Estimated GFR Random Glucose (60-115) mg/dL Calcium (8.4-10.2) mg/dL Total Bilirubin (0.0-1.0) mg/dL AST (5-31) U/L ALT (0-31) U/L Alkaline Phosphatase (39-117) U/L Troponin I High Sens (<3.5-17.0) ng/L Total Protein (6.5-8.0) g/dL Albumin (3.5-5.0) g/dL Urine Color Yellow Urine Appearance Cloudy Urine pH 6.5 (5.0-9.0) Ur Specific Anna <= 1.005 (1.005-1.025) Urine Protein Negative (Neg-Trace) mg/dL Urine Glucose (UA) Negative (Negative) mg/dL Urine Ketones Negative (Negative) mg/dL Urine Blood Trace H (Negative) Urine Nitrite Negative (Negative) Ur Leukocyte Esterase Large (3+) H (Negative) Urine RBC 0-2 (0-2) /HPF Urine WBC >50 H (0-5) /HPF Ur Squamous Epith Cells 6-10 (0-2) /HPF Urine Bacteria 4+ (None Seen) Hyaline Casts 0-2 (0-2) /LPF Urine Test (NEGATIVE) COVID-19 (MILAGRO) Negative (Negative) COVID-19 Clin Com See Note Influenza Type A (JONG) Negative (Negative) Influenza Type B (JONG) Negative (Negative) Influenza A & B Note See Note 07/27/22 Range/Units 19:13 WBC (4.8-10.8) X10*3/uL RBC (4.20-5.50) X10*6/uL Hgb (12.0-16.0) g/dl Hct (37.0-47.0) % MCV (80.0-98.0) fL MCH (27.0-33.0) pg MCHC (31.0-35.0) g/dl RDW (11.0-16.0) % Plt Count (160-400) X10*3/uL MPV (9.4-12.3) fL Immature Gran % (Auto) (0.0-0.4) % Neut % (Auto) (45-73) % Lymph % (Auto) (20-40) % [place] % (Auto) (2-11) % Eos % (Auto) (0-4) % Baso % (Auto) (0-2) % Lymph # (Auto) (1.2-4.9) X10*3/uL [place] # (Auto) (0.1-1.2) X10*3/uL Eos # (Auto) (0.0-0.4) X10*3/uL Baso # (Auto) (0.0-0.2) X10*3/uL Abs Immat Gran (auto) (0.00-0.03) X10*3/uL Absolute Neuts (auto) (2.0-8.3) x10*3/uL Absolute Nucleated RBC (0.0-0.012) X10*3/uL Nucleated RBC % (auto) (0.0-0.2) /100WBC Sodium (135-145) mmol/L Potassium (3.3-5.1) mmol/L Chloride (96-108) mmol/L Carbon Dioxide (22-29) mmol/L Anion Gap (12-20) BUN (9-16) mg/dL Creatinine (0.5-1.4) mg/dL Estim Creat Clear Calc Estimated GFR Random Glucose (60-115) mg/dL Calcium (8.4-10.2) mg/dL Total Bilirubin (0.0-1.0) mg/dL AST (5-31) U/L ALT (0-31) U/L Alkaline Phosphatase (39-117) U/L Troponin I High Sens (<3.5-17.0) ng/L Total Protein (6.5-8.0) g/dL Albumin (3.5-5.0) g/dL Urine Color Urine Appearance Urine pH (5.0-9.0) Ur Specific Anna (1.005-1.025) Urine Protein (Neg-Trace) mg/dL Urine Glucose (UA) (Negative) mg/dL Urine Ketones (Negative) mg/dL Urine Blood (Negative) Urine Nitrite (Negative) Ur Leukocyte Esterase (Negative) Urine RBC (0-2) /HPF Urine WBC (0-5) /HPF Ur Squamous Epith Cells (0-2) /HPF Urine Bacteria (None Seen) Hyaline Casts (0-2) /LPF Urine Test NEGATIVE (NEGATIVE) COVID-19 (MILAGRO) (Negative) COVID-19 Clin Com Influenza Type A (JONG) (Negative) Influenza Type B (JONG) (Negative) Influenza A & B Note <Monisha Cleveland, BING - Last Filed: 07/27/22 16:51> Lab Results 07/27/22 07/27/22 07/27/22 Range/Units 17:02 17:02 17:02 WBC 8.1 (4.8-10.8) X10*3/uL RBC 4.46 (4.20-5.50) X10*6/uL Hgb 12.1 (12.0-16.0) g/dl Hct 37.4 (37.0-47.0) % MCV 83.9 (80.0-98.0) fL MCH 27.1 (27.0-33.0) pg MCHC 32.4 (31.0-35.0) g/dl RDW 13.7 (11.0-16.0) % Plt Count 359 (160-400) X10*3/uL MPV 9.1 L (9.4-12.3) fL Immature Gran % (Auto) 1.2 H (0.0-0.4) % Neut % (Auto) 69.6 (45-73) % Lymph % (Auto) 21.2 (20-40) % [place] % (Auto) 6.7 (2-11) % Eos % (Auto) 0.9 (0-4) % Baso % (Auto) 0.4 (0-2) % Lymph # (Auto) 1.7 (1.2-4.9) X10*3/uL [place] # (Auto) 0.5 (0.1-1.2) X10*3/uL Eos # (Auto) 0.1 (0.0-0.4) X10*3/uL Baso # (Auto) 0.0 (0.0-0.2) X10*3/uL Abs Immat Gran (auto) 0.10 H (0.00-0.03) X10*3/uL Absolute Neuts (auto) 5.7 (2.0-8.3) x10*3/uL Absolute Nucleated RBC 0.000 (0.0-0.012) X10*3/uL Nucleated RBC % (auto) 0.0 (0.0-0.2) /100WBC Sodium 141 (135-145) mmol/L Potassium 3.7 (3.3-5.1) mmol/L Chloride 105 (96-108) mmol/L Carbon Dioxide 24 (22-29) mmol/L Anion Gap 16 (12-20) BUN 8 L (9-16) mg/dL Creatinine 0.69 (0.5-1.4) mg/dL Estim Creat Clear Calc 138.8 Estimated GFR > 60 Random Glucose 111 (60-115) mg/dL Calcium 9.0 (8.4-10.2) mg/dL Total Bilirubin 0.4 (0.0-1.0) mg/dL AST 17 (5-31) U/L ALT 14 (0-31) U/L Alkaline Phosphatase 100 (39-117) U/L Troponin I High Sens < 3.5 (<3.5-17.0) ng/L Total Protein 6.3 L (6.5-8.0) g/dL Albumin 4.0 (3.5-5.0) g/dL Urine Color Urine Appearance Urine pH (5.0-9.0) Ur Specific Anna (1.005-1.025) Urine Protein (Neg-Trace) mg/dL Urine Glucose (UA) (Negative) mg/dL Urine Ketones (Negative) mg/dL Urine Blood (Negative) Urine Nitrite (Negative) Ur Leukocyte Esterase (Negative) Urine RBC (0-2) /HPF Urine WBC (0-5) /HPF Ur Squamous Epith Cells (0-2) /HPF Urine Bacteria (None Seen) Hyaline Casts (0-2) /LPF Urine Test (NEGATIVE) COVID-19 (MILAGRO) (Negative) COVID-19 Clin Com Influenza Type A (JONG) (Negative) Influenza Type B (JONG) (Negative) Influenza A & B Note 07/27/22 07/27/22 07/27/22 Range/Units 17:02 17:02 19:13 WBC (4.8-10.8) X10*3/uL RBC (4.20-5.50) X10*6/uL Hgb (12.0-16.0) g/dl Hct (37.0-47.0) % MCV (80.0-98.0) fL MCH (27.0-33.0) pg MCHC (31.0-35.0) g/dl RDW (11.0-16.0) % Plt Count (160-400) X10*3/uL MPV (9.4-12.3) fL Immature Gran % (Auto) (0.0-0.4) % Neut % (Auto) (45-73) % Lymph % (Auto) (20-40) % [place] % (Auto) (2-11) % Eos % (Auto) (0-4) % Baso % (Auto) (0-2) % Lymph # (Auto) (1.2-4.9) X10*3/uL [place] # (Auto) (0.1-1.2) X10*3/uL Eos # (Auto) (0.0-0.4) X10*3/uL Baso # (Auto) (0.0-0.2) X10*3/uL Abs Immat Gran (auto) (0.00-0.03) X10*3/uL Absolute Neuts (auto) (2.0-8.3) x10*3/uL Absolute Nucleated RBC (0.0-0.012) X10*3/uL Nucleated RBC % (auto) (0.0-0.2) /100WBC Sodium (135-145) mmol/L Potassium (3.3-5.1) mmol/L Chloride (96-108) mmol/L Carbon Dioxide (22-29) mmol/L Anion Gap (12-20) BUN (9-16) mg/dL Creatinine (0.5-1.4) mg/dL Estim Creat Clear Calc Estimated GFR Random Glucose (60-115) mg/dL Calcium (8.4-10.2) mg/dL Total Bilirubin (0.0-1.0) mg/dL AST (5-31) U/L ALT (0-31) U/L Alkaline Phosphatase (39-117) U/L Troponin I High Sens (<3.5-17.0) ng/L Total Protein (6.5-8.0) g/dL Albumin (3.5-5.0) g/dL Urine Color Yellow Urine Appearance Cloudy Urine pH 6.5 (5.0-9.0) Ur Specific Anna <= 1.005 (1.005-1.025) Urine Protein Negative (Neg-Trace) mg/dL Urine Glucose (UA) Negative (Negative) mg/dL Urine Ketones Negative (Negative) mg/dL Urine Blood Trace H (Negative) Urine Nitrite Negative (Negative) Ur Leukocyte Esterase Large (3+) H (Negative) Urine RBC 0-2 (0-2) /HPF Urine WBC >50 H (0-5) /HPF Ur Squamous Epith Cells 6-10 (0-2) /HPF Urine Bacteria 4+ (None Seen) Hyaline Casts 0-2 (0-2) /LPF Urine Test (NEGATIVE) COVID-19 (MILAGRO) Negative (Negative) COVID-19 Clin Com See Note Influenza Type A (JONG) Negative (Negative) Influenza Type B (JONG) Negative (Negative) Influenza A & B Note See Note 07/27/22 Range/Units 19:13 WBC (4.8-10.8) X10*3/uL RBC (4.20-5.50) X10*6/uL Hgb (12.0-16.0) g/dl Hct (37.0-47.0) % MCV (80.0-98.0) fL MCH (27.0-33.0) pg MCHC (31.0-35.0) g/dl RDW (11.0-16.0) % Plt Count (160-400) X10*3/uL MPV (9.4-12.3) fL Immature Gran % (Auto) (0.0-0.4) % Neut % (Auto) (45-73) % Lymph % (Auto) (20-40) % [place] % (Auto) (2-11) % Eos % (Auto) (0-4) % Baso % (Auto) (0-2) % Lymph # (Auto) (1.2-4.9) X10*3/uL [place] # (Auto) (0.1-1.2) X10*3/uL Eos # (Auto) (0.0-0.4) X10*3/uL Baso # (Auto) (0.0-0.2) X10*3/uL Abs Immat Gran (auto) (0.00-0.03) X10*3/uL Absolute Neuts (auto) (2.0-8.3) x10*3/uL Absolute Nucleated RBC (0.0-0.012) X10*3/uL Nucleated RBC % (auto) (0.0-0.2) /100WBC Sodium (135-145) mmol/L Potassium (3.3-5.1) mmol/L Chloride (96-108) mmol/L Carbon Dioxide (22-29) mmol/L Anion Gap (12-20) BUN (9-16) mg/dL Creatinine (0.5-1.4) mg/dL Estim Creat Clear Calc Estimated GFR Random Glucose (60-115) mg/dL Calcium (8.4-10.2) mg/dL Total Bilirubin (0.0-1.0) mg/dL AST (5-31) U/L ALT (0-31) U/L Alkaline Phosphatase (39-117) U/L Troponin I High Sens (<3.5-17.0) ng/L Total Protein (6.5-8.0) g/dL Albumin (3.5-5.0) g/dL Urine Color Urine Appearance Urine pH (5.0-9.0) Ur Specific Anna (1.005-1.025) Urine Protein (Neg-Trace) mg/dL Urine Glucose (UA) (Negative) mg/dL Urine Ketones (Negative) mg/dL Urine Blood (Negative) Urine Nitrite (Negative) Ur Leukocyte Esterase (Negative) Urine RBC (0-2) /HPF Urine WBC (0-5) /HPF Ur Squamous Epith Cells (0-2) /HPF Urine Bacteria (None Seen) Hyaline Casts (0-2) /LPF Urine Test NEGATIVE (NEGATIVE) COVID-19 (MILAGRO) (Negative) COVID-19 Clin Com Influenza Type A (JONG) (Negative) Influenza Type B (JONG) (Negative) Influenza A & B Note <TARA Davidson - Last Filed: 07/27/22 20:08> Radiology Impression Discussion of test interpretation with radiology: I have reviewed the radiologist's reading. <TARA Davidson - Last Filed: 07/27/22 20:08> Core Measures AMI core measures followed: Yes <TARA Davidson Last Filed: 07/27/22 20:08> Measure exclusions: not indicated <TARA Davidson - Last Filed: 07/27/22 20:08> Critical Care Time Critical Care Time Critical Care Time: No <TARA Davidson Last Filed: 07/27/22 20:08> Discharge Plan Discharge Clinical Impression: Vertigo, UTI (urinary tract infection) <Monisha Hernandez [place]ING [place] - Last Filed: 07/27/22 16:51> Patient Disposition: Home, Self-Care <Monisha Hernandez [place] - Last Filed: 07/27/22 16:51> Instructions: Vertigo (ED), Dizziness (ED) <Monisha Hernandez [place] - Last Filed: 07/27/22 16:51> Additional Instructions: Take your medications as prescribed. If you were prescribed antibiotics today, it is important that you take your medication to their entirety, do not skip any doses, do not finish them early. Follow-up with your primary care provider this week. Return to the emergency department with new or worsening symptoms. Such as fevers, chills, chest pain, shortness of breath, nausea, vomiting, dizziness, headache, vision changes, lethargy In case of emergency call 911 <Monisha Hernandez [place] - Last Filed: 07/27/22 16:51> Prescriptions: New meclizine 25 mg tablet 25 mg PO BID PRN (Reason: dizziness) Qty: 14 0RF nitrofurantoin monohyd/m-cryst [Macrobid] 100 mg capsule 100 mg PO BID 5 Days Qty: 10 0RF Rx Instructions: must administer with a meal/food No Action lamotrigine 150 mg Tablet 150 mg PO DAILY doxepin 50 mg Capsule 50 mg PO DAILY verapamil 40 mg Tablet 40 mg PO DAILY pantoprazole 40 mg Tablet,Delayed Release (Dr/Ec) 40 mg PO DAILY ondansetron 4 mg Tablet,Disintegrating 4 mg PO Q6H PRN (Reason: Nausea And Vomiting) multivitamin Capsule olanzapine [Zyprexa] 20 mg Tablet 20 mg PO DAILY cholecalciferol (vitamin D3) [Vitamin D3] 25 mcg (1,000 unit) Capsule 25 mcg PO DAILY ferrous sulfate 324 mg (65 mg iron) Tablet,Delayed Release (Dr/Ec) 324 mg PO DAILY sulfamethoxazole-trimethoprim [Bactrim DS] 800-160 mg tablet 1 tab PO BID Qty: 14 0RF nitrofurantoin monohyd/m-cryst [Macrobid] 100 mg capsule 100 mg PO Q12H 7 Days Qty: 14 0RF Rx Instructions: must administer with a meal/food tranexamic acid 650 mg tablet 650 mg PO BID 5 Days Qty: 10 0RF ondansetron 4 mg tablet,disintegrating 4 mg PO Q6-8H PRN (Reason: nausea and vomiting) Qty: 14 0RF oxycodone 5 mg tablet 5 mg PO Q4H PRN (Reason: pain) Qty: 14 0RF Rx Instructions: Patient may request partial fill ferrous sulfate 325 mg (65 mg iron) tablet 325 mg PO TID 60 Days Qty: 180 0RF morphine 15 mg tablet 15 mg PO Q6H PRN (Reason: pain) 3 Days Qty: 8 0RF ondansetron 4 mg tablet,disintegrating 4 mg PO Q8H PRN (Reason: nausea and vomiting) Qty: 20 0RF nitrofurantoin monohyd/m-cryst [Macrobid] 100 mg capsule 100 mg PO BID 7 Days Qty: 14 0RF Rx Instructions: must administer with a meal/food pantoprazole [Protonix] 40 mg tablet,delayed release (DR/EC) 40 mg PO DAILY Qty: 30 0RF <Monisha Cleveland CNP - Last Filed: 07/27/22 16:51> Referrals: Physician,Unknown J [Primary Care Provider] - 2 days <Monisha Cleveland CNP - Last Filed: 07/27/22 16:51> Stand Alone Forms: Work/School Release <Monisha Cleveland CNP - Last Filed: 07/27/22 16:51>
--- NOTE | 2022-07-27 16:51 | ECG_ITS ---
Test Reason : DIZZINESS Blood Pressure : / mmHG Vent. Rate : 087 BPM Atrial Rate : 087 BPM P-R Int : 160 ms QRS Dur : 080 ms QT Int : 392 ms P-R-T Axes : 031 032 022 degrees QTc Int : 471 ms Normal sinus rhythm Normal ECG When compared with ECG of 01-AUG-2020 00:18, No significant change was found Referred By: Monisha Cleveland Electronically Signed By:HANSA CANELA
[2022-07-27 17:08] LABS: MANUAL DIFF FLAG NO
--- OUTSIDE RECORDS SUMMARY | 2022-07-27 17:10 | XMS_ITS | Continuity of Care Document ---
:1980 Author Organization [facility] Address [address] [facility], 3rd [facility], [address] [place] [address]- Care Team Providers Name Role Phone Zaheer Madden MD [id number] Date[facility]18[facility]20 - 01/24/21 [facility] [address] [facility], 3rd Floor, [address] [place] [address] Attending Physician: Jenni Delgado NP Admitting Physician: Jenni Delgado NP Referring Physician: Zaheer Madden MD Allergies, Adverse Reactions, Alerts Substance Reaction Severity Status naproxen Active penicillin rash,hives Active Immunizations Given and Recorded Vaccine Date Status Refusal Reason tetanus/diphtheria/pertussis, acel(Tdap) 04/17/11 Given Medications doxepin 50 mg oral capsule 1 capsule = 50 mg, By Mouth, Daily, 0 Refills, Maintenance, 07/13/20 10:17:00 EST, Partial fill uponpatient request if the prescription is for a schedule II opioid drug. Start Date: 07/13/20 Status: Orderedferrous sulfate 324 mg (65 mg elemental iron) oral delayed release tablet 1 tablet = 324 mg, By Mouth, Daily, 0 Refills, Maintenance, 07/13/20 10:17:00 EST, Partial fill uponpatient request if the prescription is for a schedule II opioid drug. Start Date: 07/13/20 Stop Date: 08/12/20 Status: Orderedlamotrigine 150 mg oral tablet 1 tablet = 150 mg, By Mouth, Daily, # 180 tablet, 0 Refills, Maintenance, 07/13/20 10:17:00 EST, Tablet, Partial fill upon patient request if the prescription is for a schedule II opioid drug. Start Date: 07/13/20 Status: OrderedMultivitamin 1 tablet, By Mouth, Daily, 0 Refills, Maintenance, 07/13/20 10:16:00 EST, Partial fill upon patient request if the prescription is for a schedule II opioid drug. Start Date: 07/13/20 Status: Orderedolanzapine 20 mg oral tablet 1 tablet = 20 mg, By Mouth, Daily, # 30 tablet, 0 Refills, Maintenance, 07/13/20 10:16:00 EST, Tablet, Partial fill upon patient request if the prescription is for a schedule II opioid drug. Start Date: 07/13/20 Status: Orderedomeprazole 20 mg oral delayed release tablet 1 tablet = 20 mg, By Mouth, Daily, 0 Refills, Maintenance, 07/13/20 10:17:00 EST, Partial fill upon patient request if the prescription is for a schedule II opioid drug. Start Date: 07/13/20 Status: OrderedSUMAtriptan 100 mg oral tablet 1 tablet = 100 mg, By Mouth, Once, PRN as needed for migraine headache, may repeat dose after 2 hours up to a maximum of 200 mg in 24 hours, # 9 tablet, 2 Refills, Soft Stop, 09/13/18 16:08:02 EDT, Tablet Start Date: 09/13/18 Status: Orderedverapamil 80 mg oral tablet 1 tablet = 80 mg, By Mouth, Daily at bedtime, dose increase, # 30 tablet, 5 Refills, Maintenance, 07/05/20 13:47:00 EST, [facility]/pharmacy #1972, 170, cm, 02/21/19 23:31:00 EDT, Height, 141, kg, 02/21/19 23:31:00 EDT, Dry Weight Start Date: 07/05/20 Stop Date: 01/01/21 Status: OrderedVitamin D3 1000 intl units oral tablet 1 tablet = 1,000 International_Units, By Mouth, Daily, # 30 tablet, 0 Refills, Maintenance, 07/13/2109:16:00 EST, Tablet, Partial fill upon patient request if the prescription is for a schedule II opioid drug. Start Date: 07/13/20 Status: Ordered Problem List Condition Effective Dates Status Health Status Informant Bipolar disorder(Confirmed) Active (Confirmed) Active Social History Social History Type Response Smoking Status Never smoker entered on: 01/03/15 Sex
--- OUTSIDE RECORDS SUMMARY | 2022-07-27 17:10 | XMS_ITS | Continuity of Care Document ---
:1980 Author Organization [facility] Address Unavailable , Care Team Providers Name Role Phone Zaheer Madden MD Primary Care Physician Encounter [facility] Date(s): 08/29/21 - 11/27/21 [facility] Attending Physician: Chandra Coronado MD Admitting Physician: Chandra Coronado MD Allergies, Adverse Reactions, Alerts Substance Reaction [...] II opioid drug. Start Date: 07/13/20 Status: Orderedpropranolol 40 mg oral tablet 40 mg, 1, tablet, By Mouth, Daily before dinner, d/c verapamil, # 30 tablet, Refills 5, Tot. Refills5, Maintenance, 11/15/21 7:31:00 EDT, Route to Pharmacy Electronically, [facility]/pharmacy #1972, Partial fill upon patient request if the prescription is... Start Date: 11/15/21 Stop Date: 05/14/22 Status: Orderedrizatriptan 5 mg oral tablet 1 tablet = 5 mg, By Mouth, Once, PRN for migraine headache, may repeat dose once in 2 hours, max 2 tabs / 24hrs , no more 3 doses /week, # 9 tablet, 2 Refills, Soft Stop, 11/15/21 7:32:00 EDT, Tablet, [facility]/pharmacy #1972, d/ c sumatriptan Start Date: 11/15/21 Status: OrderedVitamin D3 1000 intl units oral [...]
--- OUTSIDE RECORDS SUMMARY | 2022-07-27 17:11 | XMS_ITS | Continuity of Care Document ---
:1980 Author Organization [facility] Address [address] [facility], 3rd [facility], [address] [place] [address]- Care Team Providers Name Role Phone Chano POLLOCK, Zaheer Primary Care Physician Encounter [facility] Date(s): 05/30/22 - 06/29/22 [facility] [address] [facility], 3rd [facility], [address] [place] [id number] Attending Physician: Jo Ann Goodman Admitting Physician: Jo Ann Goodman Referring Physician: AdmtrJo Ann Allergies, Adverse Reactions, Alerts Substance Reaction Severity [...] 1, tablet, By Mouth, Daily before dinner, # 90 tablet, Refills 1, Tot. Refills 1, Maintenance, 03/27/22 7:02:00 EDT, Route to Pharmacy Electronically, [facility]/pharmacy #1972, Partial fill upon patient request if the prescription is for a schedule I... Start Date: 03/27/22 Stop Date: 09/23/22 Status: Orderedrizatriptan 5 mg oral tablet 1 tablet = 5 mg, By Mouth, Once, PRN for migraine headache, may repeat dose once in 2 hours, max 2 tabs / 24hrs , no more 3 doses /week, # 9 tablet, 2 Refills, Soft Stop, 11/15/21 7:32:00 EDT, Tablet, [facility]/pharmacy #1972, d/ c sumatriptan Start Date: 11/15/21 Status: OrderedVitamin D3 1000 intl units oral tablet 1 tablet = 1,000 International_Units, By Mouth, Daily, # 30 tablet, 0 Refills, Maintenance, 07/13/2109:16:00 EST, Tablet, Partial fill upon patient request if the prescription is for a schedule II opioid drug. Start Date: 07/13/20 Status: Ordered Problem List Condition Confirmation Course Effective Dates Status Health Stat us Informant Bipolar disorder Confirmed Active Confirmed Active Social History Social History Type Response Smoking Status Never smoker entered on: 01/03/15 Sex Patient Care team information Care Team PersonnelName: Zaheer Madden MD Position: [facility] Outreach Member Role: PCP Address: Address: [address] [place] [address]- [place] Name: Jose Carranza RN Position: [facility] RN Member Role: Primary Care Nurse Name: Donna Manley RN Position: [facility] ED RN W/OE and Tasks Member Role: Primary Care Nurse Name: Mykel Matos DO Position: [facility] Renal MD Member Role: Lifetime Consulting Physician Address: Address: [address] [place] [address] [address] [facility] [place] [address]- Name: Yumiko Garner Position: [facility] OB OA Member Role: Primary Care Nurse Name: Neyda RAWLS, Rusty Burgos Position: [facility] RN Member Role: Primary Care Nurse Care Team Related PersonsName: VIOLET LATHAM Address: home [address] [address] Name: ANNABELLE CONNORS Address: home [address] [place] [address]
--- OUTSIDE RECORDS SUMMARY | 2022-07-27 17:11 | XMS_ITS | Continuity of Care Document ---
:1980 Author Organization [facility] Address Unavailable , Care Team Providers Name Role Phone Zaheer Madden MD Primary Care Physician Encounter [facility] [place] Date(s): 08/29/21 - 09/28/21 [facility] Attending Physician: Jo Ann Goodman Admitting Physician: Jo Ann Goodman Referring Physician: Jo Ann Goodman Allergies, Adverse Reactions, Alerts Substance Reaction Severity [...] tablet, 5 Refills, Maintenance, 07/05/20 13:47:00 EST, [facility]/pharmacy #1972, 170, cm, 02/21/19 23:31:00 EDT, Height, [...]
--- OUTSIDE RECORDS SUMMARY | 2022-07-27 17:11 | XMS_ITS | Continuity of Care Document ---
:1980 Author Organization [facility] Address [address] [facility], 3rd [facility], [address] [place] [address]- Care Team Providers Name Role Phone Zaheer Madden MD Primary Care Physician En[facility] Date(s): 07/21/20 - 11/18/20 [facility] [address] [facility], [address]rd [facility], [address] [place] [id number] Attending Physician: Kalyani Almaraz MD Admitting Physician: Kalyani Almaraz MD Allergies, Adverse Reactions, Alerts Substance Reaction [...] tablet, 5 Refills, Maintenance, 07/05/20 13:47:00 EST, [facility]/pharmacy #1972, 170, cm, 02/21/19 23:31:00 EDT, Height, [...]
--- OUTSIDE RECORDS SUMMARY | 2022-07-27 17:11 | XMS_ITS | Continuity of Care Document ---
:1980 Author Organization [facility] Address [address] [facility], 3rd [facility], [address] [place] [address]- Care Team Providers Name Role Phone Zaheer Madden MD Primary Care Physician [id number] Date(s): 12/25/20 - 01/24/21 [facility] [address] [facility], 3rd Floor, [address] [place] [address] Attending Physician: Jo Ann Goodman Admitting Physician: [...] tablet, 5 Refills, Maintenance, 07/05/20 13:47:00 EST, [facility]/pharmacy #1972, 170, cm, 02/21/19 23:31:00 EDT, Height, [...]
--- OUTSIDE RECORDS SUMMARY | 2022-07-27 17:11 | XMS_ITS | Continuity of Care Document ---
:1980 Author Organization [facility] Address Unavailable , Care Team Providers Name Role Phone Zaheer Madden MD [id number] Date(s): 03/23/21 - 09/29/21 [facility] Attending Physician: Kalyani Almaraz MD Admitting Physician: Kalyani Almaraz MD Referring Physician: Gurwinder Madden MD Allergies, Adverse Reactions, Alerts Substance [...] tablet, 5 Refills, Maintenance, 07/05/20 13:47:00 EST, [facility]/pharmacy #1972, 170, cm, 02/21/19 23:31:00 EDT, [...]
--- OUTSIDE RECORDS SUMMARY | 2022-07-27 17:11 | XMS_ITS | Continuity of Care Document ---
:1980 Author Organization [facility] Address [address] [place] [address]- Care Team Providers Name Role Phone Zaheer Madden MD Primary Care Physician Encounter [facility] Date(s): 10/06/20 - 10/06/[address] [address]- Encounter Diagnosis Viral URI (Final) - 10/06/20 Discharge Disposition: A-D/C Home Attending Physician: Dimple Arauz MD Admitting Physician: Dimple Arauz MD Referring Physician: Not on Staff, Referring MD Allergies, Adverse Reactions, Alerts Substance Reaction [...] tablet, 5 Refills, Maintenance, 07/05/20 13:47:00 EST, [facility]/pharmacy #1972, 170, cm, 02/21/19 [...] Status Informant Bipolar disorder(Confirmed) Active (Confirmed) Active Vital Signs Most recent to oldest [Reference 1 2 3 Range]: Oxygen Saturation [94-100 %] 99 % 98 % 97 % (10/06/20 8:33 PM) (10/06/20 5:31 PM) (10/06/20 5:11 P M) Pulse Rate [55-90 bpm] 76 bpm 85 bpm 104 bpm (10/06/20 8:33 PM) (10/06/20 5:31 PM) *H* (10/06/20 5:11 PM) Blood Pressure [90-138/55-84 mm 127/62 mm Hg 124/63 mm Hg Hg] (10/06/20 8:33 PM) (10/06/20 5:31 PM) Respiratory Rate [16-30 br/min] 18 br/min 20 br/min (10/06/20 8:33 PM) (10/06/20 5:31 PM) Temperature [96.8-100.4 DegF] 98.0 DegF (10/06/20 5:31 PM) Mode of Delivery (Oxygen) Room air Room air Room a ir (10/06/20 8:33 PM) (10/06/20 5:31 PM) (10/06/20 5:11 P M) Blood pressure sites Arm, left (10/06/20 5:31 PM) Temperature Route Oral (10/06/20 5:31 PM) Social History Social History Type Response Smoking Status Never smoker entered on: 01/03/15 Sex
--- OUTSIDE RECORDS SUMMARY | 2022-07-27 17:11 | XMS_ITS | Continuity of Care Document ---
:1980 Author Organization [facility] Address [address] [facility], 3rd [facility], [address] [place] [address]- Care Team Providers Name Role Phone Chano POLLOCK, Zaheer Primary Care Physician Encounter [facility] Date(s): 07/05/20 - 08/04/20 [facility] [address] [facility], 3rd [facility], [address] [place] [address] Allergies, Adverse Reactions, Alerts Substance Reaction Severity [...] tablet, 5 Refills, Maintenance, 07/05/20 13:47:00 EST, [facility]/pharmacy #1972, 170, cm, 02/21/19 23:31:00 EDT, Height, [...]
--- OUTSIDE RECORDS SUMMARY | 2022-07-27 17:11 | XMS_ITS | Continuity of Care Document ---
:1980 Author Organization [facility] Address [address] [facility], 3rd [facility], [address] [place] [address]- Care Team Providers Name Role Phone Zaheer Madden MD Primary Care Physician Encounter [facility] Date(s): 03/05/20 - 04/04/20 [facility] [address], 3rd Floor, [address] [place] [address] [facility] Attending Physician: Jenni Delgado NP Admitting Physician: Jenni Delgado NP Allergies, Adverse Reactions, Alerts Substance Reaction Severity Status naproxen Active penicillin rash,hives Active Immunizations Given and Recorded Vaccine Date Status Refusal Reason tetanus/diphtheria/pertussis, acel(Tdap) 04/17/11 Given Medications SUMAtriptan 100 mg oral tablet 1 tablet = [...] increase, # 30 tablet, 5 Refills, Maintenance, 09/13/18 16:08:55 EDT Start Date: 09/13/18 Stop Date: 03/12/19 Status: Ordered Problem List Condition Effective Dates Status Health Status Informant Bipolar disorder(Confirmed) Active (Confirmed) Active Social History Social History Type Response Smoking Status Never smoker entered on: 01/03/15 Sex
--- OUTSIDE RECORDS SUMMARY | 2022-07-27 17:11 | XMS_ITS | Continuity of Care Document ---
:1980 Author Organization [facility] Address [address] [facility], 3rd [facility], [address] [place] [address]- Care Team Providers Name Role Phone Zaheer Madden MD Primary Care Physician [id number] Date(s): 10/19/20 - 11/18/20 [facility] [address] [facility], 3rd Floor, [address] [place] [address] Attending Physician: Jo Ann Goodman Admitting Physician: [...] tablet, 5 Refills, Maintenance, 07/05/20 13:47:00 EST, [facility]/pharmacy #1972, 170, cm, 02/21/19 23:31:00 EDT, [...]
--- OUTSIDE RECORDS SUMMARY | 2022-07-27 17:11 | XMS_ITS | Continuity of Care Document ---
:1980 Author Organization [facility] Address Unavailable , Care Team Providers Name Role Phone Zaheer Madden MD Primary Care Physician Encounter [facility] Date(s): 10/09/21 - 11/24/21 [facility] Attending Physician: Jenni Demarco NP Admitting Physician: Jenni Demarco NP Allergies, Adverse Reactions, Alerts Substance Reaction [...] 11/15/21 7:31:00 EDT, Route to Pharmacy Electronically, [facility]/pharmacy #1972, Partial fill upon patient request [...] Refills, Soft Stop, 11/15/21 7:32:00 EDT, Tablet, [facility]/pharmacy #1972, d/ c sumatriptan Start Date: [...]
--- OUTSIDE RECORDS SUMMARY | 2022-07-27 17:11 | XMS_ITS | Continuity of Care Document ---
:1980 Author Organization [facility] Address Unavailable , Care Team Providers Name Role Phone Zaheer Madden MD Primary [facility] Phys[id number] Date(s): 08/12/21 - 09/28/21 [facility] Attending Physician: Kalyani Almaraz MD [...] tablet, 5 Refills, Maintenance, 07/05/20 13:47:00 EST, [facility]/pharmacy #1972, 170, cm, 02/21/19 23:31:00 EDT, Height, [...]
--- OUTSIDE RECORDS SUMMARY | 2022-07-27 17:11 | XMS_ITS | Continuity of Care Document ---
:1980 Author Organization [facility] Address [address] [place] [phone]- Care Team Providers Name Role Phone Zaheer Madden MD Primary Care Physician Encounter [facility] Date(s): 05/09/21 - 05/10/[address] [address]- Discharge Disposition: A-D/C Home Attending Physician: Fortino Herman MD Admitting Physician: Fortino Herman MD Referring Physician: Not on Staff, Referring [...] tablet, 5 Refills, Maintenance, 07/05/20 13:47:00 EST, [facility]/pharmacy #1972, 170, cm, 02/21/19 23:31:00 [...] Active Vital Signs Most recent to oldest 1 2 3 [Reference Range]: Oxygen Saturation [94-100 %] 100 % 99 % 100 % (05/10/21 2:33 AM) (05/10/21 1:32 AM) (05/10/21 1:0 9 AM) Pulse Rate [55-90 bpm] 72 bpm 76 bpm 80 bpm (05/10/21 2:33 AM) (05/10/21 1:32 AM) (05/10/21 1:0 9 AM) Blood Pressure [90-138/55-84 mm 122/74 mm Hg 132/78 mm Hg 118/77 mm Hg Hg] (05/10/21 2:33 AM) (05/10/21 1:32 AM) (05/10/21 1:0 9 AM) Respiratory Rate [16-30 br/min] 18 br/min 16 br/min 16 br/min (05/10/21 2:33 AM) (05/10/21 1:32 AM) (05/10/21 1:0 9 AM) Temperature [96.8-100.4 DegF] 98.1 DegF 98.4 DegF 99 .2 DegF (05/10/21 1:09 AM) (05/09/21 9:41 PM) (05/09/21 5:1 5 PM) Mode of Delivery (Oxygen) Room air Room air Room a ir (05/10/21 2:33 AM) (05/10/21 1:32 AM) (05/10/21 1:0 9 AM) Blood pressure sites Arm, left Arm, left Arm, right (05/10/21 2:33 AM) (05/10/21 1:32 AM) (05/10/21 1:0 9 AM) Temperature Route Oral Oral Oral (05/10/21 1:09 AM) (05/09/21 9:41 PM) (05/09/21 5:1 5 PM) Social History Social History Type Response Smoking Status Never smoker entered on: 01/03/15 Sex
[2022-07-27 17:19] LABS: Basophils Percent Auto 0.4 % (0-2); Eosinophils Absolute Auto 0.1 X10*3/uL (0.0-0.4); Eosinophils Percent Auto 0.9 % (0-4); Hematocrit 37.4 % (37.0-47.0); Hemoglobin 12.1 g/dl (12.0-16.0); Imm Gran Pct Auto 1.2 % (0.0-0.4); Lymphocytes Absolute Auto 1.7 X10*3/uL (1.2-4.9); Lymphocytes Percent Auto 21.2 % (20-40); Mean Corpuscular HGB Conc 32.4 g/dl (31.0-35.0); Mean Corpuscular Hemoglobin 27.1 pg (27.0-33.0); Mean Corpuscular Volume 83.9 fL (80.0-98.0); Mean Platelet Volume 9.1 fL (9.4-12.3); Monocytes Absolute Auto 0.5 X10*3/uL (0.1-1.2); Monocytes Percent Auto 6.7 % (2-11); Neutrophils Absolute Auto 5.7 x10*3/uL (2.0-8.3); Neutrophils Percent Auto 69.6 % (45-73); Platelet Count 359 X10*3/uL (160-400); Red Blood Count 4.46 X10*6/uL (4.20-5.50); Red Cell Distribution Width 13.7 % (11.0-16.0); White Blood Count 8.1 X10*3/uL (4.8-10.8)
[2022-07-27 17:30] LABS: Alanine Aminotransferase 14 U/L (0-31); Alkaline Phosphatase 100 U/L (39-117); Anion Gap 16 (12-20); Aspartate Amino Transferase 17 U/L (5-31); Bilirubin Total 0.4 mg/dL (0.0-1.0); Blood Urea Nitrogen 8 mg/dL (9-16); Carbon Dioxide 24 mmol/L (22-29); Chloride 105 mmol/L (96-108); Creatinine Clr Calc Pharmacy 138.8; Estimated Glomerular Filt Rate > 60; Glucose Random 111 mg/dL (60-115); Potassium 3.7 mmol/L (3.3-5.1); Sodium 141 mmol/L (135-145); Total Protein 6.3 g/dL (6.5-8.0)
[2022-07-27 17:42] LABS: COVID-19 Test Negative (Negative); IDNOW Serial# 16C4AD1C; IDNOW Serial# BCCEAD1C; Influenza A Negative (Negative); Influenza B2 Negative (Negative)
[2022-07-27 17:50] LABS: Troponin-I High Sensitivity < 3.5 ng/L (<3.5-17.0)
[2022-07-27 19:04] VITALS: BP 111/69; PULSE 68; RESP 16; O2SAT 96
[2022-07-27 19:11] VITALS: BP 113/60; PULSE 70
[2022-07-27 19:13] VITALS: BP 109/62; PULSE 75
[2022-07-27 19:14] VITALS: BP 118/70; PULSE 81
[2022-07-27 19:24] LABS: Appearance Urine Cloudy; Color Urine Yellow; Glucose Urine UA Negative (Negative); Leukocyte Esterase Urine Large (3+) (Negative); Nitrite Urine Negative (Negative); PH 6.5 (5.0-9.0); Specific Gravity - Urine <= 1.005 (1.005-1.025); UMIC TRIGGER UACC YES; Urine Blood Trace (Negative); Urine Ketones Negative (Negative); Urine Protein Negative (Neg-Trace)
[2022-07-27 19:30] LABS: Urine Pregnancy NEGATIVE (NEGATIVE)
[2022-07-27 19:31] LABS: UPreg QC Valid YES
[2022-07-27] MEDS: Meclizine HCl 25 MG TABLET PO (19:38)
[2022-07-27 19:44] LABS: Bacteria Urine 4+ (None Seen); Hyaline Casts Urine 0-2 /LPF (0-2); RBC Urine 0-2 /HPF (0-2); UACC Culture Trigger YES; WBC Urine >50 /HPF (0-5)
[2022-07-27] MEDS: 0.9 % Sodium Chloride 1,000 ML 999 ML IV (19:49)
[2022-07-27] MEDS: diazePAM 2 MG TABLET PO (20:55)
[2022-07-27] MEDS: Nitrofurantoin Monohyd/M-Cryst 100 MG CAPSULE PO (20:55)
== END 2022-07-27 21:01 | disposition home or self-care (01) ==
PROVIDERS: Nurse Practitioner Family; Emergency Provider Internal Medicine
DX: N39.0 Urinary tract infection, site not specified (principal); R42 Dizziness and giddiness; R53.83 Other fatigue; Z20.822 Contact with and (suspected) exposure to COVID-19; Z20.828 Contact with and (suspected) exposure to other viral communicable diseases; Z79.899 Other long term (current) drug therapy
CPT/HCPCS: 80053; 81001; 81025; 84484; 85025; 87086; 87502; 87635; 93005; 96360; 99284

== ENCOUNTER 2022-09-02 18:39 | Emergency (ER) | payer MEDICARE, MEDICAID, SELFPAY ==
[2022-09-02 19:47] VITALS: BP 113/63; PULSE 72; RESP 16; TEMP 36.6; O2SAT 98; BMI 35.6
--- NOTE | 2022-09-02 19:47 | ED_ITS ---
HPI - Dizziness General Chief Complaint: Dizziness <TARA Steven - Last Filed: 09/02/22 19:51> Stated Complaint: Dizziness/ Vertigo? <TARA Steven - Last Filed: 09/02/22 19:51> Time Seen by Provider: 09/03/22 02:11 <TARA Steven - Last Filed: 09/02/22 19:51> Source: patient <Dakota Alarcon MD - Last Filed: 09/03/22 02:36> Mode of arrival: ambulatory <Dakota Alarcon MD - Last Filed: 09/03/22 02:36> Limitations: no limitations <Dakota Alarcon MD - Last Filed: 09/03/22 02:36> History of Present Illness HPI Narrative: Patient was seen here 1 more month ago for vertiginous feeling started on meclizine patient took for a day or 2 and did not take it as she did not like the side effects comes here as dizziness coming back again mostly vertigo feeling patient turning the head to the left side patient does have history of migraine denies any headache no other weakness no tremors no speech problem <Dakota Alarcon MD - Last Filed: 09/03/22 02:36> Related Data Home Medications: Home Medications Medication Instructions Recorded Confirmed cholecalciferol (vitamin D3) 25 25 mcg PO DAILY 10/22/20 10/22/20 mcg (1,000 unit) capsule (Vitamin D3) doxepin 50 mg capsule 50 mg PO DAILY 10/22/20 10/22/20 ferrous sulfate 324 mg (65 mg 324 mg PO DAILY 10/22/20 10/22/20 iron) tablet,delayed release lamotrigine 150 mg tablet 150 mg PO DAILY 10/22/20 10/22/20 multivitamin cap 10/22/20 olanzapine 20 mg tablet (Zyprexa) 20 mg PO DAILY 10/22/20 10/22/20 ondansetron 4 mg disintegrating 4 mg PO Q6H PRN Nausea And Vomiting 10/22/20 10/22/20 tablet pantoprazole 40 mg tablet,delayed 40 mg PO DAILY 10/22/20 10/22/20 release verapamil 40 mg tablet 40 mg PO DAILY 10/22/20 10/22/20 Previous Rx's Medication Instructions Recorded sulfamethoxazole 800 1 tab PO BID #14 tabs 10/22/20 mg-trimethoprim 160 mg tablet (Bactrim DS) nitrofurantoin 100 mg PO Q12H 7 days #14 caps 03/11/21 monohydrate/macrocrystals 100 mg capsule (Macrobid) tranexamic acid 650 mg tablet 650 mg PO BID 5 days #10 tabs 03/11/21 ferrous sulfate 325 mg (65 mg 325 mg PO TID 2 months #180 tabs 04/28/21 iron) tablet ondansetron 4 mg disintegrating 4 mg PO Q6-8H PRN nausea and 04/28/21 tablet vomiting #14 tabs oxycodone 5 mg tablet 5 mg PO Q4H PRN pain #14 tabs 04/28/21 morphine 15 mg immediate release 15 mg PO Q6H PRN pain 3 days #8 05/15/21 tablet tabs nitrofurantoin 100 mg PO BID 7 days #14 caps 05/15/21 monohydrate/macrocrystals 100 mg capsule (Macrobid) ondansetron 4 mg disintegrating 4 mg PO Q8H PRN nausea and 05/15/21 tablet vomiting #20 tabs pantoprazole 40 mg tablet,delayed 40 mg PO DAILY #30 tabs 05/28/21 release (Protonix) meclizine 25 mg tablet 25 mg PO BID PRN dizziness #14 tabs 07/27/22 nitrofurantoin 100 mg PO BID 5 days #10 caps 07/27/22 monohydrate/macrocrystals 100 mg capsule (Macrobid) lorazepam 1 mg tablet (Ativan) 1 mg PO BEDTIME PRN dizziness or 09/03/22 vertigo #7 tabs meclizine 25 mg tablet 25 mg PO TID PRN dizziness #20 tabs 09/03/22 <TARA Steven - Last Filed: 09/02/22 19:51> Allergies/Adverse Reactions: Allergies Allergy/AdvReac Type Severity Reaction Status Date / Time Penicillins Allergy Mild HIVES Verified 09/02/22 19:51 naproxen [NAPROXEN] Allergy Unknown BLEEDING Verified 09/02/22 19:51 penicillin V Allergy Unknown Hives Verified 09/02/22 19:51 <TARA Steven - Last Filed: 09/02/22 19:51> Review of Systems Review of Systems: Yes all other systems are reviewed and are negative <Dakota Alarcon MD - Last Filed: 09/03/22 02:36> FOR[facility]LY [facility] Past Medical History Medical History: Medical History Anxiety Bipolar 1 disorder delivery delivered PTSD (post-traumatic stress disorder) <TARA Steven - Last Filed: 09/02/22 19:51> Surgical History: Surgical History Gastric bypass status for obesity Tubal ligation status <TARA Steven - Last Filed: 09/02/22 19:51> Social History Social History: Social History Alcohol intake: unknown Patient Tobacco Use Status: Never used Tobacco Advance Directives: No Advance Directives Information Provided: No <TARA Steven - Last Filed: 09/02/22 19:51> Physical Exam Vital Signs: Vital Signs: Last Vital Signs Temp 97.8 F 09/02/22 19:47 Pulse 72 09/02/22 19:47 Resp 16 09/02/22 19:47 BP 113/63 09/02/22 19:47 Pulse Ox 98 09/02/22 19:47 O2 Del Method 09/02/22 19:47 BMI result Body Mass Index 35.6 <TARA Steven - Last Filed: 09/02/22 19:51> Vital Signs: Last Vital Signs Temp 97.8 F 09/02/22 19:47 Pulse 72 09/02/22 19:47 Resp 16 09/02/22 19:47 BP 113/63 09/02/22 19:47 Pulse Ox 98 09/02/22 19:47 O2 Del Method 09/02/22 19:47 BMI result Body Mass Index 35.6 <Dakota Alarcon MD - Last Filed: 09/03/22 02:36> Appearance: Alert. Oriented X3. No acute distress. Eyes: PERRLA, No Nystagmus ENT: Pharynx normal. Oral Mucosa moist Neck: Normal inspection. Neck supple. CVS: Normal heart rate and rhythm. Pulses normal. Respiratory: No respiratory distress. Equal air entry bilateral, no wheezing/rales/rhonchi Abdomen: Soft and nontender. Bowel sounds are present, no mass palpable, no CVA tenderness Skin: Skin warm and dry. Normal skin color. Normal skin turgor. Extremities: No lower extremity edema. No calf tenderness Neuro: Oriented X 3. No motor deficit. No sensory deficit.No cerebellar signs , cranial nerves II-XII intact <Dakota Alarcon MD - Last Filed: 09/03/22 02:36> Course Course Course Narrative: RME-- 42yo F w/PMHx anxiety, bipolar, PTSD, s/p gastric sleeve c/o vertigo x1 mos, worsening since 3:30PM today. Described as room spinning and off balance. Also reports MATA. Admits sx similar to prior vertigo episodes. Denies CP/SOB. Denies taking AC Ambulating w/steady gait in triage no ataxia. VSS EKG, Labs, UA, orthostatics ordered <TARA Steven - Last Filed: 09/02/22 19:51> Medical Decision Making Medical Decision Making [facility] Narrative: Patient with benign positional vertigo will give meclizine and Ativan for symptoms also advised follow with ENT patient already has appointment scheduled <Dakota Alarcon MD - Last Filed: 09/03/22 02:36> Lab Data [facility] Lab Attestation statement: I reviewed the patient's lab results. <Dakota Alarcon MD - Last Filed: 09/03/22 02:36> Result Diagrams: 09/02/22 20:11 09/02/22 20:11 <TARA Steven - Last Filed: 09/02/22 19:51> Labs: Lab Results 09/02/22 09/02/22 09/02/22 Range/Units 20:11 20:11 20:11 WBC 10.1 (4.8-10.8) X10*3/uL RBC 4.61 (4.20-5.50) X10*6/uL Hgb 12.3 (12.0-16.0) g/dl Hct 38.3 (37.0-47.0) % MCV 83.1 (80.0-98.0) fL MCH 26.7 L (27.0-33.0) pg MCHC 32.1 (31.0-35.0) g/dl RDW 13.3 (11.0-16.0) % Plt Count 340 (160-400) X10*3/uL MPV 9.0 L (9.4-12.3) fL Immature Gran % (Auto) 0.3 (0.0-0.4) % Neut % (Auto) 63.8 (45-73) % Lymph % (Auto) 27.8 (20-40) % [place] % (Auto) 6.6 (2-11) % Eos % (Auto) 1.1 (0-4) % Baso % (Auto) 0.4 (0-2) % Lymph # (Auto) 2.8 (1.2-4.9) X10*3/uL [place] # (Auto) 0.7 (0.1-1.2) X10*3/uL Eos # (Auto) 0.1 (0.0-0.4) X10*3/uL Baso # (Auto) 0.0 (0.0-0.2) X10*3/uL Abs Immat Gran (auto) 0.03 (0.00-0.03) X10*3/uL Absolute Neuts (auto) 6.5 (2.0-8.3) x10*3/uL Absolute Nucleated RBC 0.000 (0.0-0.012) X10*3/uL Nucleated RBC % (auto) 0.0 (0.0-0.2) /100WBC Sodium 141 (135-145) mmol/L Potassium 4.0 (3.3-5.1) mmol/L Chloride 108 (96-108) mmol/L Carbon Dioxide 27 (22-29) mmol/L Anion Gap 10 L (12-20) BUN 6 L (9-16) mg/dL Creatinine 0.68 (0.5-1.4) mg/dL Estim Creat Clear Calc 140.3 Estimated GFR > 60 Random Glucose 92 (60-115) mg/dL Calcium 9.0 (8.4-10.2) mg/dL Magnesium 1.9 (1.6-2.6) mg/dL Total Bilirubin 0.3 (0.0-1.0) mg/dL Direct Bilirubin < 0.2 (0.0-0.5) mg/dL AST 17 (5-31) U/L ALT 15 (0-31) U/L Alkaline Phosphatase 90 (39-117) U/L Troponin I High Sens < 3.5 (<3.5-17.0) ng/L Total Protein 6.4 L (6.5-8.0) g/dL Albumin 4.2 (3.5-5.0) g/dL Urine Color Urine Appearance Urine pH (5.0-9.0) Ur Specific [place] (1.005-1.025) Urine Protein (Neg-Trace) mg/dL Urine Glucose (UA) (Negative) mg/dL Urine Ketones (Negative) mg/dL Urine Blood (Negative) Urine Nitrite (Negative) Ur Leukocyte Esterase (Negative) Urine RBC (0-2) /HPF Urine WBC (0-5) /HPF Ur Squamous Epith Cells (0-2) /HPF Urine Bacteria (None Seen) Hyaline Casts (0-2) /LPF Urine Test (NEGATIVE) 09/02/22 09/02/22 Range/Units 22:14 22:14 WBC (4.8-10.8) X10*3/uL RBC (4.20-5.50) X10*6/uL Hgb (12.0-16.0) g/dl Hct (37.0-47.0) % MCV (80.0-98.0) fL MCH (27.0-33.0) pg MCHC (31.0-35.0) g/dl RDW (11.0-16.0) % Plt Count (160-400) X10*3/uL MPV (9.4-12.3) fL Immature Gran % (Auto) (0.0-0.4) % Neut % (Auto) (45-73) % Lymph % (Auto) (20-40) % [place] % (Auto) (2-11) % Eos % (Auto) (0-4) % Baso % (Auto) (0-2) % Lymph # (Auto) (1.2-4.9) X10*3/uL [place] # (Auto) (0.1-1.2) X10*3/uL Eos # (Auto) (0.0-0.4) X10*3/uL Baso # (Auto) (0.0-0.2) X10*3/uL Abs Immat Gran (auto) (0.00-0.03) X10*3/uL Absolute Neuts (auto) (2.0-8.3) x10*3/uL Absolute Nucleated RBC (0.0-0.012) X10*3/uL Nucleated RBC % (auto) (0.0-0.2) /100WBC Sodium (135-145) mmol/L Potassium (3.3-5.1) mmol/L Chloride (96-108) mmol/L Carbon Dioxide (22-29) mmol/L Anion Gap (12-20) BUN (9-16) mg/dL Creatinine (0.5-1.4) mg/dL Estim Creat Clear Calc Estimated GFR Random Glucose (60-115) mg/dL Calcium (8.4-10.2) mg/dL Magnesium (1.6-2.6) mg/dL Total Bilirubin (0.0-1.0) mg/dL Direct Bilirubin (0.0-0.5) mg/dL AST (5-31) U/L ALT (0-31) U/L Alkaline Phosphatase (39-117) U/L Troponin I High Sens (<3.5-17.0) ng/L Total Protein (6.5-8.0) g/dL Albumin (3.5-5.0) g/dL Urine Color Yellow Urine Appearance Cloudy Urine pH 6.0 (5.0-9.0) Ur Specific [place] 1.015 (1.005-1.025) Urine Protein Negative (Neg-Trace) mg/dL Urine Glucose (UA) Negative (Negative) mg/dL Urine Ketones Negative (Negative) mg/dL Urine Blood Negative (Negative) Urine Nitrite Negative (Negative) Ur Leukocyte Esterase Large (3+) H (Negative) Urine RBC 0-2 (0-2) /HPF Urine WBC 21-50 H (0-5) /HPF Ur Squamous Epith Cells >20 (0-2) /HPF Urine Bacteria 4+ (None Seen) Hyaline Casts 0-2 (0-2) /LPF Urine Test NEGATIVE (NEGATIVE) <TARA Steven - Last Filed: 09/02/22 19:51> Lab Results 09/02/22 09/02/22 09/02/22 Range/Units 20:11 20:11 20:11 WBC 10.1 (4.8-10.8) X10*3/uL RBC 4.61 (4.20-5.50) X10*6/uL Hgb 12.3 (12.0-16.0) g/dl Hct 38.3 (37.0-47.0) % MCV 83.1 (80.0-98.0) fL MCH 26.7 L (27.0-33.0) pg MCHC 32.1 (31.0-35.0) g/dl RDW 13.3 (11.0-16.0) % Plt Count 340 (160-400) X10*3/uL MPV 9.0 L (9.4-12.3) fL Immature Gran % (Auto) 0.3 (0.0-0.4) % Neut % (Auto) 63.8 (45-73) % Lymph % (Auto) 27.8 (20-40) % [place] % (Auto) 6.6 (2-11) % Eos % (Auto) 1.1 (0-4) % Baso % (Auto) 0.4 (0-2) % Lymph # (Auto) 2.8 (1.2-4.9) X10*3/uL [place] # (Auto) 0.7 (0.1-1.2) X10*3/uL Eos # (Auto) 0.1 (0.0-0.4) X10*3/uL Baso # (Auto) 0.0 (0.0-0.2) X10*3/uL Abs Immat Gran (auto) 0.03 (0.00-0.03) X10*3/uL Absolute Neuts (auto) 6.5 (2.0-8.3) x10*3/uL Absolute Nucleated RBC 0.000 (0.0-0.012) X10*3/uL Nucleated RBC % (auto) 0.0 (0.0-0.2) /100WBC Sodium 141 (135-145) mmol/L Potassium 4.0 (3.3-5.1) mmol/L Chloride 108 (96-108) mmol/L Carbon Dioxide 27 (22-29) mmol/L Anion Gap 10 L (12-20) BUN 6 L (9-16) mg/dL Creatinine 0.68 (0.5-1.4) mg/dL Estim Creat Clear Calc 140.3 Estimated GFR > 60 Random Glucose 92 (60-115) mg/dL Calcium 9.0 (8.4-10.2) mg/dL Magnesium 1.9 (1.6-2.6) mg/dL Total Bilirubin 0.3 (0.0-1.0) mg/dL Direct Bilirubin < 0.2 (0.0-0.5) mg/dL AST 17 (5-31) U/L ALT 15 (0-31) U/L Alkaline Phosphatase 90 (39-117) U/L Troponin I High Sens < 3.5 (<3.5-17.0) ng/L Total Protein 6.4 L (6.5-8.0) g/dL Albumin 4.2 (3.5-5.0) g/dL Urine Color Urine Appearance Urine pH (5.0-9.0) Ur Specific [place] (1.005-1.025) Urine Protein (Neg-Trace) mg/dL Urine Glucose (UA) (Negative) mg/dL Urine Ketones (Negative) mg/dL Urine Blood (Negative) Urine Nitrite (Negative) Ur Leukocyte Esterase (Negative) Urine RBC (0-2) /HPF Urine WBC (0-5) /HPF Ur Squamous Epith Cells (0-2) /HPF Urine Bacteria (None Seen) Hyaline Casts (0-2) /LPF Urine Test (NEGATIVE) 09/02/22 09/02/22 Range/Units 22:14 22:14 WBC (4.8-10.8) X10*3/uL RBC (4.20-5.50) X10*6/uL Hgb (12.0-16.0) g/dl Hct (37.0-47.0) % MCV (80.0-98.0) fL MCH (27.0-33.0) pg MCHC (31.0-35.0) g/dl RDW (11.0-16.0) % Plt Count (160-400) X10*3/uL MPV (9.4-12.3) fL Immature Gran % (Auto) (0.0-0.4) % Neut % (Auto) (45-73) % Lymph % (Auto) (20-40) % [place] % (Auto) (2-11) % Eos % (Auto) (0-4) % Baso % (Auto) (0-2) % Lymph # (Auto) (1.2-4.9) X10*3/uL [place] # (Auto) (0.1-1.2) X10*3/uL Eos # (Auto) (0.0-0.4) X10*3/uL Baso # (Auto) (0.0-0.2) X10*3/uL Abs Immat Gran (auto) (0.00-0.03) X10*3/uL Absolute Neuts (auto) (2.0-8.3) x10*3/uL Absolute Nucleated RBC (0.0-0.012) X10*3/uL Nucleated RBC % (auto) (0.0-0.2) /100WBC Sodium (135-145) mmol/L Potassium (3.3-5.1) mmol/L Chloride (96-108) mmol/L Carbon Dioxide (22-29) mmol/L Anion Gap (12-20) BUN (9-16) mg/dL Creatinine (0.5-1.4) mg/dL Estim Creat Clear Calc Estimated GFR Random Glucose (60-115) mg/dL Calcium (8.4-10.2) mg/dL Magnesium (1.6-2.6) mg/dL Total Bilirubin (0.0-1.0) mg/dL Direct Bilirubin (0.0-0.5) mg/dL AST (5-31) U/L ALT (0-31) U/L Alkaline Phosphatase (39-117) U/L Troponin I High Sens (<3.5-17.0) ng/L Total Protein (6.5-8.0) g/dL Albumin (3.5-5.0) g/dL Urine Color Yellow Urine Appearance Cloudy Urine pH 6.0 (5.0-9.0) Ur Specific [place] 1.015 (1.005-1.025) Urine Protein Negative (Neg-Trace) mg/dL Urine Glucose (UA) Negative (Negative) mg/dL Urine Ketones Negative (Negative) mg/dL Urine Blood Negative (Negative) Urine Nitrite Negative (Negative) Ur Leukocyte Esterase Large (3+) H (Negative) Urine RBC 0-2 (0-2) /HPF Urine WBC 21-50 H (0-5) /HPF Ur Squamous Epith Cells >20 (0-2) /HPF Urine Bacteria 4+ (None Seen) Hyaline Casts 0-2 (0-2) /LPF Urine Test NEGATIVE (NEGATIVE) <Dakota Alarcon MD - Last Filed: 09/03/22 02:36> Discharge Plan Discharge Clinical Impression: Benign paroxysmal positional vertigo <TARA Steven - Last Filed: 09/02/22 19:51> Patient Disposition: Home, Self-Care <TARA Steven - Last Filed: 09/02/22 19:51> Instructions: Benign Paroxysmal Positional Vertigo (ED) <TARA Steven - Last Filed: 09/02/22 19:51> Additional Instructions: Care and cautions as advised Meclizine for dizziness 1 tablet every 8 hours as needed Ativan 1 mg at bedtime also for dizziness Follow-up with PCP/ENT as scheduled <TARA Steven - Last Filed: 09/02/22 19:51> Prescriptions: New meclizine 25 mg tablet 25 mg PO TID PRN (Reason: dizziness) Qty: 20 0RF lorazepam [Ativan] 1 mg tablet 1 mg PO BEDTIME PRN (Reason: dizziness or vertigo) Qty: 7 0RF No Action lamotrigine 150 mg Tablet 150 mg PO DAILY doxepin 50 mg Capsule 50 mg PO DAILY verapamil 40 mg Tablet 40 mg PO DAILY pantoprazole 40 mg Tablet,Delayed Release (Dr/Ec) 40 mg PO DAILY ondansetron 4 mg Tablet,Disintegrating 4 mg PO Q6H PRN (Reason: Nausea And Vomiting) multivitamin Capsule olanzapine [Zyprexa] 20 mg Tablet 20 mg PO DAILY cholecalciferol (vitamin D3) [Vitamin D3] 25 mcg (1,000 unit) Capsule 25 mcg PO DAILY ferrous sulfate 324 mg (65 mg iron) Tablet,Delayed Release (Dr/Ec) 324 mg PO DAILY sulfamethoxazole-trimethoprim [Bactrim DS] 800-160 mg tablet 1 tab PO BID Qty: 14 0RF nitrofurantoin monohyd/m-cryst [Macrobid] 100 mg capsule 100 mg PO Q12H 7 Days Qty: 14 0RF Rx Instructions: must administer with a meal/food tranexamic acid 650 mg tablet 650 mg PO BID 5 Days Qty: 10 0RF ondansetron 4 mg tablet,disintegrating 4 mg PO Q6-8H PRN (Reason: nausea and vomiting) Qty: 14 0RF oxycodone 5 mg tablet 5 mg PO Q4H PRN (Reason: pain) Qty: 14 0RF Rx Instructions: Patient may request partial fill ferrous sulfate 325 mg (65 mg iron) tablet 325 mg PO TID 60 Days Qty: 180 0RF morphine 15 mg tablet 15 mg PO Q6H PRN (Reason: pain) 3 Days Qty: 8 0RF ondansetron 4 mg tablet,disintegrating 4 mg PO Q8H PRN (Reason: nausea and vomiting) Qty: 20 0RF nitrofurantoin monohyd/m-cryst [Macrobid] 100 mg capsule 100 mg PO BID 7 Days Qty: 14 0RF Rx Instructions: must administer with a meal/food pantoprazole [Protonix] 40 mg tablet,delayed release (DR/EC) 40 mg PO DAILY Qty: 30 0RF meclizine 25 mg tablet 25 mg PO BID PRN (Reason: dizziness) Qty: 14 0RF nitrofurantoin monohyd/m-cryst [Macrobid] 100 mg capsule 100 mg PO BID 5 Days Qty: 10 0RF Rx Instructions: must administer with a meal/food <TARA Steven - Last Filed: 09/02/22 19:51> Stand Alone Forms: Work/School Release <TARA Steven - Last Filed: 09/02/22 19:51>
--- NOTE | 2022-09-02 19:48 | ECG_ITS ---
Test Reason : dizziness Blood Pressure : / mmHG Vent. Rate : 080 BPM Atrial Rate : 080 BPM P-R Int : 132 ms QRS Dur : 080 ms QT Int : 406 ms P-R-T Axes : -01 026 015 degrees QTc Int : 468 ms Normal sinus rhythm Low voltage QRS Borderline ECG When compared with ECG of 27-JUL-2022 16:56, No significant change was found Referred By: Myla Smalls Electronically Signed By:MARY WARNER MD
[2022-09-02 20:14] LABS: MANUAL DIFF FLAG NO
[2022-09-02 20:37] LABS: Alanine Aminotransferase 15 U/L (0-31); Albumin Level 4.2 g/dL (3.5-5.0); Alkaline Phosphatase 90 U/L (39-117); Anion Gap 10 (12-20); Aspartate Amino Transferase 17 U/L (5-31); Bilirubin Direct < 0.2 mg/dL (0.0-0.5); Bilirubin Total 0.3 mg/dL (0.0-1.0); Blood Urea Nitrogen 6 mg/dL (9-16); Carbon Dioxide 27 mmol/L (22-29); Chloride 108 mmol/L (96-108); Creatinine Clr Calc Pharmacy 140.3; Estimated Glomerular Filt Rate > 60; Glucose Random 92 mg/dL (60-115); Magnesium 1.9 mg/dL (1.6-2.6); Sodium 141 mmol/L (135-145); Total Protein 6.4 g/dL (6.5-8.0)
[2022-09-02 20:40] LABS: Eosinophils Percent Auto 1.1 % (0-4); Hematocrit 38.3 % (37.0-47.0); Hemoglobin 12.3 g/dl (12.0-16.0); Imm Gran Pct Auto 0.3 % (0.0-0.4); Lymphocytes Percent Auto 27.8 % (20-40); Mean Corpuscular HGB Conc 32.1 g/dl (31.0-35.0); Mean Corpuscular Hemoglobin 26.7 pg (27.0-33.0); Mean Corpuscular Volume 83.1 fL (80.0-98.0); Monocytes Percent Auto 6.6 % (2-11); Neutrophils Percent Auto 63.8 % (45-73); Platelet Count 340 X10*3/uL (160-400); Red Blood Count 4.61 X10*6/uL (4.20-5.50); Red Cell Distribution Width 13.3 % (11.0-16.0); White Blood Count 10.1 X10*3/uL (4.8-10.8)
[2022-09-02 20:41] LABS: Basophils Percent Auto 0.4 % (0-2); Eosinophils Absolute Auto 0.1 X10*3/uL (0.0-0.4); Imm Gran Abs Auto 0.03 X10*3/uL (0.00-0.03); Lymphocytes Absolute Auto 2.8 X10*3/uL (1.2-4.9); Monocytes Absolute Auto 0.7 X10*3/uL (0.1-1.2); Neutrophils Absolute Auto 6.5 x10*3/uL (2.0-8.3)
[2022-09-02 20:49] LABS: Troponin-I High Sensitivity < 3.5 ng/L (<3.5-17.0)
[2022-09-02 22:24] LABS: Appearance Urine Cloudy; Color Urine Yellow; Glucose Urine UA Negative (Negative); Leukocyte Esterase Urine Large (3+) (Negative); Nitrite Urine Negative (Negative); Specific Gravity - Urine 1.015 (1.005-1.025); UMIC TRIGGER UACC YES; UPreg QC Valid YES; Urine Blood Negative (Negative); Urine Ketones Negative (Negative); Urine Pregnancy NEGATIVE (NEGATIVE); Urine Protein Negative (Neg-Trace)
[2022-09-02 22:27] LABS: Bacteria Urine 4+ (None Seen); Hyaline Casts Urine 0-2 /LPF (0-2); RBC Urine 0-2 /HPF (0-2); Squamous Epithelial Cell Urine >20 /HPF (0-2); UACC Culture Trigger YES; WBC Urine 21-50 /HPF (0-5)
[2022-09-03] MEDS: Meclizine HCl 25 MG TABLET 50 MG PO (02:39)
[2022-09-03] MEDS: LORazepam 1 MG TABLET PO (02:39)
[2022-09-03 02:42] VITALS: BP 117/75; PULSE 80; RESP 16; O2SAT 98
== END 2022-09-03 02:48 | disposition home or self-care (01) ==
PROVIDERS: Physician Assistant; Emergency Provider Internal Medicine; PCP Internal Medicine
DX: H81.13 Benign paroxysmal vertigo, bilateral (principal); Z98.84 Bariatric surgery status; Z79.899 Other long term (current) drug therapy
CPT/HCPCS: 36415; 80048; 80076; 81001; 81025; 83735; 84484; 85025; 87086; 93005; 99283; 99284

== ENCOUNTER 2022-11-29 23:27 | Emergency (ER) | payer MEDICARE, MEDICAID, SELFPAY ==
[2022-11-29 23:32] VITALS: BP 117/78; PULSE 104; RESP 16; TEMP 36.4; O2SAT 98; BMI 37.6
--- NOTE | 2022-11-30 00:05 | ECG_ITS ---
Test Reason : PALPITATIONS Blood Pressure : / mmHG Vent. Rate : 088 BPM Atrial Rate : 088 BPM P-R Int : 166 ms QRS Dur : 084 ms QT Int : 386 ms P-R-T Axes : 046 037 037 degrees QTc Int : 467 ms Normal sinus rhythm Normal ECG When compared with ECG of 02-SEP-2022 21:44, No significant change was found Referred By: Mykel Pratt Electronically Signed By:HANSA CANELA
--- NOTE | 2022-11-30 00:12 | ED_ITS ---
HPI - General Adult General Chief complaint: ETOH/Substance Use Stated complaint: Ate too many edibles Time Seen by Provider: 11/29/22 23:54 Source: patient, RN notes reviewed and old records reviewed Mode of arrival: ambulatory Limitations: no limitations History of Present Illness HPI narrative: 42-year-old female presents for evaluation of ?I think I ate too many edibles. ? Patient reports that she was drinking alcohol tonight, had four wine coolers. She reports that around 3 or 4 hours ago she ?ate a bunch of chocolate. ? She was told that the entire bar was 2000 mg Patient states that she ?feels like she is going to pass out. ? She complains that her heart is racing She feels nauseous Denies any pain including headache, chest pain or abdominal pain Denies any other drug abuse Related Data Home Medications Medication Instructions Recorded Confirmed cholecalciferol (vitamin D3) 25 25 mcg PO DAILY 10/22/20 10/22/20 mcg (1,000 unit) capsule (Vitamin D3) doxepin 50 mg capsule 50 mg PO DAILY 10/22/20 10/22/20 ferrous sulfate 324 mg (65 mg 324 mg PO DAILY 10/22/20 10/22/20 iron) tablet,delayed release lamotrigine 150 mg tablet 150 mg PO DAILY 10/22/20 10/22/20 multivitamin cap 10/22/20 olanzapine 20 mg tablet (Zyprexa) 20 mg PO DAILY 10/22/20 10/22/20 ondansetron 4 mg disintegrating 4 mg PO Q6H PRN Nausea And Vomiting 10/22/20 10/22/20 tablet pantoprazole 40 mg tablet,delayed 40 mg PO DAILY 10/22/20 10/22/20 release verapamil 40 mg tablet 40 mg PO DAILY 10/22/20 10/22/20 Previous Rx's Medication Instructions Recorded sulfamethoxazole 800 1 tab PO BID #14 tabs 10/22/20 mg-trimethoprim 160 mg tablet (Bactrim DS) nitrofurantoin 100 mg PO Q12H 7 days #14 caps 03/11/21 monohydrate/macrocrystals 100 mg capsule (Macrobid) tranexamic acid 650 mg tablet 650 mg PO BID 5 days #10 tabs 03/11/21 ferrous sulfate 325 mg (65 mg 325 mg PO TID 2 months #180 tabs 04/28/21 iron) tablet ondansetron 4 mg disintegrating 4 mg PO Q6-8H PRN nausea and 04/28/21 tablet vomiting #14 tabs oxycodone 5 mg tablet 5 mg PO Q4H PRN pain #14 tabs 04/28/21 morphine 15 mg immediate release 15 mg PO Q6H PRN pain 3 days #8 05/15/21 tablet tabs nitrofurantoin 100 mg PO BID 7 days #14 caps 05/15/21 monohydrate/macrocrystals 100 mg capsule (Macrobid) ondansetron 4 mg disintegrating 4 mg PO Q8H PRN nausea and 05/15/21 tablet vomiting #20 tabs pantoprazole 40 mg tablet,delayed 40 mg PO DAILY #30 tabs 05/28/21 release (Protonix) meclizine 25 mg tablet 25 mg PO BID PRN dizziness #14 tabs 07/27/22 nitrofurantoin 100 mg PO BID 5 days #10 caps 07/27/22 monohydrate/macrocrystals 100 mg capsule (Macrobid) lorazepam 1 mg tablet (Ativan) 1 mg PO BEDTIME PRN dizziness or 09/03/22 vertigo #7 tabs meclizine 25 mg tablet 25 mg PO TID PRN dizziness #20 tabs 09/03/22 Allergies Allergy/AdvReac Type Severity Reaction Status Date / Time Penicillins Allergy Mild HIVES Verified 09/02/22 19:51 naproxen [NAPROXEN] Allergy Unknown BLEEDING Verified 09/02/22 19:51 penicillin V Allergy Unknown Hives Verified 09/02/22 19:51 Review of Systems 2 Constitutional: Constitutional: Denies body ache(s), Denies chills and Denies fever(s) Eyes: Eyes: Denies blurry vision ENT: Denies sore throat Cardiovascular: Cardiovascular: Denies chest pain, Denies syncope, Reports palpitations and Denies dyspnea Respiratory: Respiratory: Denies cough and Denies dyspnea Gastrointestinal: Gastrointestinal: Denies abdominal pain, Reports nausea and Reports vomiting Neurologic: Denies syncope Endocrine: Endocrine: Reports palpitations PMFSH Past Medical History Medical History Anxiety Bipolar 1 disorder delivery delivered PTSD (post-traumatic stress disorder) Surgical History Gastric bypass status for obesity Tubal ligation status Social History Social History Alcohol intake: unknown Patient Tobacco Use Status: Never used Tobacco Smoked in Last 30 Days: No Use of substances other than those prescribed or required for medical reasons: No Substance Use Type: Marijuana Last Used Substance: Hours (ago) Any prior treatment program specific to substance use: No Advance Directives: No Advance Directives Information Provided: Yes Patient : No Physical Exam ED Vital Signs: Vital Signs - 24 hr 11/29/22 23:32 11/30/22 00:37 Temperature 97.6 F 97.6 F Pulse Rate 104 H 79 Respiratory Rate 16 12 Blood Pressure 117/78 111/70 Pulse Oximetry 98 96 Oxygen Delivery Method Room Air Room Air BMI result Body Mass Index 37.6 Const General: healthy appearing, comfortable, no acute distress, alert and awake Nutritional Appearance: well nourished Orientation/consciousness: patient oriented x3 HENMT Head: Yes normocephalic and Yes atraumatic Eyes Eyelids: Yes eyelids normal Conjunctivae: conjunctivae normal Sclerae: sclerae normal Corneas: corneas normal Pupils: Equal, round and reactive pupils present EOM: EOMs intact bilaterally Neck Neck: Yes full ROM Resp Effort & Inspection: normal respiratory effort, able to speak in complete sentences, no audible wheezes and not labored Auscultation: clear to auscultation bilaterally Cardio Rate: regular rate Rhythm: regular rhythm GI Inspection: No distended Palpation (GI): Soft to palpation, not firm, nontender, no guarding and not ri gid Auscultation: normoactive bowel sounds Skin General skin exam: no rashes or lesions noted and elasticity normal Neuro General: patient oriented x3 Cranial nerves: Yes CN's II-XII intact bilaterally, Yes Equal, round and reactive pupils present and Yes Bilaterally intact EOM present Cognition (Neuro): normal cognition Extrem Other: Moving all extremities well without any obvious deformities Psych Appearance: grossly normal Speech and movement: Normal speech and movement present Attitude: cooperative Thought process: Normal thought process present Thought content: Normal thought content present Insight: Good insight present (Psych) Course Reevaluation(s) Reevaluation #1: Patient's workup largely unremarkable. I discussed this with the patient. She still feels somewhat dizzy. Her alcohol level was actually negative. She has not yet provided a urine sample to send for toxicology. Her vital signs have remained stable. We will observe her for short while longer and so she is more awake to drive herself home. Time: 01:31 Medications Administered Discontinued Medications Generic Name Dose Route Start Last Admin Trade Name Jass PRN Reason Stop Dose Admin Ondansetron HCl 4 mg 11/30/22 00:10 11/30/22 00:35 Ondansetron Odt 4 Mg Tab.Rapdis TRANSLINGU 11/30/22 00:11 4 mg ONCE ONE Administration Medical Decision Making Medical Decision Making [facility] Narrative: 42-year-old female presents for evaluation of lightheadedness and ?feeling like I am going to pass out. ? This is likely related to her alcohol and cannabis abuse. Patient's hernia is somewhat fast 104 but is regular on palpation. Will get an EKG, check basic labs and a drug screen for, ingestions. Patient given Zofran for nausea. Differential Diagnosis Polysubstance abuse Marijuana abuse Alcohol abuse Dehydration Lightheadedness Lab Data [facility] Lab Attestation statement: I reviewed the patient's lab results. 11/30/22 00:30 11/30/22 00:30 Labs: Lab Results 11/30/22 11/30/22 Range/Units 00:30 00:30 WBC 10.1 (4.8-10.8) X10*3/uL RBC 4.66 (4.20-5.50) X10*6/uL Hgb 12.7 (12.0-16.0) g/dl Hct 37.9 (37.0-47.0) % MCV 81.3 (80.0-98.0) fL MCH 27.3 (27.0-33.0) pg MCHC 33.5 (31.0-35.0) g/dl RDW 12.5 (11.0-16.0) % Plt Count 341 (160-400) X10*3/uL MPV 8.9 L (9.4-12.3) fL Immature Gran % (Auto) 0.3 (0.0-0.4) % Neut % (Auto) 77.8 H (45-73) % Lymph % (Auto) 14.9 L (20-40) % Whitfield % (Auto) 6.3 (2-11) % Eos % (Auto) 0.3 (0-4) % Baso % (Auto) 0.4 (0-2) % Lymph # (Auto) 1.5 (1.2-4.9) X10*3/uL Whitfield # (Auto) 0.6 (0.1-1.2) X10*3/uL Eos # (Auto) 0.0 (0.0-0.4) X10*3/uL Baso # (Auto) 0.0 (0.0-0.2) X10*3/uL Abs Immat Gran (auto) 0.03 (0.00-0.03) X10*3/uL Absolute Neuts (auto) 7.9 (2.0-8.3) x10*3/uL Absolute Nucleated RBC 0.000 (0.0-0.012) X10*3/uL Nucleated RBC % (auto) 0.0 (0.0-0.2) /100WBC Sodium 137 (135-145) mmol/L Potassium 4.1 (3.3-5.1) mmol/L Chloride 106 (96-108) mmol/L Carbon Dioxide 22 (22-29) mmol/L Anion Gap 13 (12-20) BUN 8 L (9-16) mg/dL Creatinine 0.76 (0.5-1.4) mg/dL Estim Creat Clear Calc 125.0 Estimated GFR > 60 Random Glucose 148 H (60-115) mg/dL Calcium 9.2 (8.4-10.2) mg/dL Total Bilirubin 0.4 (0.0-1.0) mg/dL AST 15 (5-31) U/L ALT 14 (0-31) U/L Alkaline Phosphatase 109 (39-117) U/L Total Protein 6.9 (6.5-8.0) g/dL Albumin 4.3 (3.5-5.0) g/dL Lipase 26 (8-78) U/L Ethyl Alcohol < 10 mg/dL Independent Interpretation I performed an independent interpretation of an: EKG (Sinus rhythm with a rate of 80 beats minute. No ectopy, no ST segment changes) Discharge Plan Discharge Clinical Impression: Cannabis abuse Patient Disposition: Home, Self-Care Instructions: Cannabis Abuse (ED) Additional Instructions: Urinary EKG showed no issues with her heart. Your blood work was reassuring. Her symptoms are likely related to your edible use You should avoid using edibles if you have a reaction like this. You should also read the instructions and recommended dose before ingesting them It usually takes a few hours before edibles will call symptoms. Prescriptions: No Action lamotrigine 150 mg Tablet 150 mg PO DAILY doxepin 50 mg Capsule 50 mg PO DAILY verapamil 40 mg Tablet 40 mg PO DAILY pantoprazole 40 mg Tablet,Delayed Release (Dr/Ec) 40 mg PO DAILY ondansetron 4 mg Tablet,Disintegrating 4 mg PO Q6H PRN (Reason: Nausea And Vomiting) multivitamin Capsule olanzapine [Zyprexa] 20 mg Tablet 20 mg PO DAILY cholecalciferol (vitamin D3) [Vitamin D3] 25 mcg (1,000 unit) Capsule 25 mcg PO DAILY ferrous sulfate 324 mg (65 mg iron) Tablet,Delayed Release (Dr/Ec) 324 mg PO DAILY sulfamethoxazole-trimethoprim [Bactrim DS] 800-160 mg tablet 1 tab PO BID Qty: 14 0RF nitrofurantoin monohyd/m-cryst [Macrobid] 100 mg capsule 100 mg PO Q12H 7 Days Qty: 14 0RF Rx Instructions: must administer with a meal/food tranexamic acid 650 mg tablet 650 mg PO BID 5 Days Qty: 10 0RF ondansetron 4 mg tablet,disintegrating 4 mg PO Q6-8H PRN (Reason: nausea and vomiting) Qty: 14 0RF oxycodone 5 mg tablet 5 mg PO Q4H PRN (Reason: pain) Qty: 14 0RF Rx Instructions: Patient may request partial fill ferrous sulfate 325 mg (65 mg iron) tablet 325 mg PO TID 60 Days Qty: 180 0RF morphine 15 mg tablet 15 mg PO Q6H PRN (Reason: pain) 3 Days Qty: 8 0RF ondansetron 4 mg tablet,disintegrating 4 mg PO Q8H PRN (Reason: nausea and vomiting) Qty: 20 0RF nitrofurantoin monohyd/m-cryst [Macrobid] 100 mg capsule 100 mg PO BID 7 Days Qty: 14 0RF Rx Instructions: must administer with a meal/food pantoprazole [Protonix] 40 mg tablet,delayed release (DR/EC) 40 mg PO DAILY Qty: 30 0RF meclizine 25 mg tablet 25 mg PO BID PRN (Reason: dizziness) Qty: 14 0RF nitrofurantoin monohyd/m-cryst [Macrobid] 100 mg capsule 100 mg PO BID 5 Days Qty: 10 0RF Rx Instructions: must administer with a meal/food meclizine 25 mg tablet 25 mg PO TID PRN (Reason: dizziness) Qty: 20 0RF lorazepam [Ativan] 1 mg tablet 1 mg PO BEDTIME PRN (Reason: dizziness or vertigo) Qty: 7 0RF
[2022-11-30 00:34] LABS: MANUAL DIFF FLAG NO
[2022-11-30] MEDS: Ondansetron ODT 4 MG TAB.RAPDIS TRANSLINGU (00:35)
[2022-11-30 00:37] VITALS: BP 111/70; PULSE 79; PULSE 87; RESP 12; TEMP 36.4; O2SAT 96
--- NOTE | 2022-11-30 00:41 | PC.NURSE ---
Pt sleeping at the bedside. Arousable to verbal stimuli. Calm and relaxed. very sleepy/tired. Unable to provide urine sample at this time. Answers questions appropriately. VSS. Medicated as ordered. Pt tolerated well. Will continue to monitor.
[2022-11-30 00:42] LABS: Basophils Percent Auto 0.4 % (0-2); Eosinophils Percent Auto 0.3 % (0-4); Hematocrit 37.9 % (37.0-47.0); Hemoglobin 12.7 g/dl (12.0-16.0); Imm Gran Abs Auto 0.03 X10*3/uL (0.00-0.03); Imm Gran Pct Auto 0.3 % (0.0-0.4); Lymphocytes Absolute Auto 1.5 X10*3/uL (1.2-4.9); Lymphocytes Percent Auto 14.9 % (20-40); Mean Corpuscular HGB Conc 33.5 g/dl (31.0-35.0); Mean Corpuscular Hemoglobin 27.3 pg (27.0-33.0); Mean Corpuscular Volume 81.3 fL (80.0-98.0); Mean Platelet Volume 8.9 fL (9.4-12.3); Monocytes Absolute Auto 0.6 X10*3/uL (0.1-1.2); Monocytes Percent Auto 6.3 % (2-11); Neutrophils Absolute Auto 7.9 x10*3/uL (2.0-8.3); Neutrophils Percent Auto 77.8 % (45-73); Platelet Count 341 X10*3/uL (160-400); Red Blood Count 4.66 X10*6/uL (4.20-5.50); Red Cell Distribution Width 12.5 % (11.0-16.0); White Blood Count 10.1 X10*3/uL (4.8-10.8)
--- OUTSIDE RECORDS SUMMARY | 2022-11-30 01:03 | XMS_ITS | Continuity of Care Document ---
Author Name Unknown Organization [facility] Address [address], [address], [address] [place] [id number]- Care Team Providers Care Automatic Screwmaker Name Role Phone Zaheer Madden MD Primary Care Physician [place] [facility] [place]/22 [facility] [address], [address], [address] [place] [id number]- Allergies, Adverse Reactions, Alerts Substance Reaction Severity Status naproxen Active penicillin rash,hives Active Immunizations Given and Recorded Vaccine Date Status Refusal Reason tetanus/diphtheria/pertussis, acel(Tdap) 04/17/11 Given Medications Depakote 125 mg oral enteric coated tablet 2 tablet = 250 mg, By Mouth, Daily at supper, with food 1 tab daily x 1 week, then increase to 2 tabs ., # 60 tablet, 5 Refills, Maintenance, 08/29/22 7:50:00 EST, EC Tablet, [facility]/pharmacy #[id number], d/c propranolol Start Date: 08/29/22 Stop Date: 02/25/23 Status: Ordered doxepin 50 mg oral capsule 1 capsule = 50 mg, By Mouth, Daily, 0 Refills, Maintenance, 07/13/20 10:17:00 EST, Partial fill upon patient request if the prescription is for a schedule II opioid drug. Start Date: 07/13/20 Status: Ordered ferrous sulfate 324 mg (65 mg elemental iron) oral delayed release tablet 1 tablet = 324 mg, By Mouth, Daily, 0 Refills, Maintenance, 07/13/20 10:17:00 EST, Partial fill upon patient request if the prescription is for a schedule II opioid drug. Start Date: 07/13/20 Stop Date: 08/12/20 Status: Ordered lamotrigine 150 mg oral tablet 1 tablet = 150 mg, By Mouth, Daily, # 180 tablet, 0 Refills, Maintenance, 07/13/20 10:17:00 EST, Tablet, Partial fill upon patient request if the prescription is for a schedule II opioid drug. Start Date: 07/13/20 Status: Ordered Multivitamin 1 tablet, By Mouth, Daily, 0 Refills, Maintenance, 07/13/20 10:16:00 EST, Partial fill upon patientrequest if the prescription is for a schedule II opioid drug. Start Date: 07/13/20 Status: Ordered olanzapine 20 mg oral tablet 1 tablet = 20 mg, By Mouth, Daily, # 30 tablet, 0 Refills, Maintenance, 07/13/20 10:16:00 EST, Tablet, Partial fill upon patient request if the prescription is for a schedule II opioid drug. Start Date: 07/13/20 Status: Ordered omeprazole 20 mg oral delayed release tablet 1 tablet = 20 mg, By Mouth, Daily, 0 Refills, Maintenance, 07/13/20 10:17:00 EST, Partial fill uponpatient request if the prescription is for a schedule II opioid drug. Start Date: 07/13/20 Status: Ordered rizatriptan 5 mg oral tablet 1 tablet = 5 mg, By Mouth, Once, PRN for migraine headache, may repeat dose once in 2 hours, max 2 tabs / 24hrs , no more 3 doses /week, # 9 tablet, 2 Refills, Soft Stop, 08/29/22 7:49:00 EST, Tablet, [facility]/pharmacy #[id number], d/ c sumatriptan Start Date: 08/29/22 Status: Ordered Vitamin D3 1000 intl units oral tablet 1 tablet = 1,000 International_Units, By Mouth, Daily, # 30 tablet, 0 Refills, Maintenance, 07/13/20 10:16:00 EST, Tablet, Partial fill upon patient request if the prescription is for a schedule II opioid drug. Start Date: 07/13/20 Status: Ordered Problem List Condition Confirmation Course Effective Dates Status Health St atus Informant Bipolar disorder Confirmed Active Confirmed Active Social History Social History Type Response Smoking Status Never smoker entered on: 01/03/15 Sex Patient Care team information Care Team Personnel Name: Zaheer Madden MD Position: S Outreach Member Role: PCP Address: Address: [address] [place] [phone]- [place] Name: Jose Carranza RN Position: [facility] RN Member Role: Primary Care Nurse Name: Donna Manley RN Position: [facility] RN Member Role: Primary Care Nurse Name: Mykel Matos DO Position: [facility] Renal MD Member Role: Lifetime Consulting Physician Address: Address: [address] [place] [address] [address] [facility] [place] [address]- Name: Yumiko Garner Position: [facility] OB OA Member Role: Primary Care Nurse Name: Rusty Faey RN Position: [facility] ED RN W/OE and Tasks Member Role: Primary Care Nurse Care Team Related Persons Name: NOA VIOLET Address: home [address] [place] [address] Name: ANNABELLE CONNORS Address: home [address] [place] [address]
--- OUTSIDE RECORDS SUMMARY | 2022-11-30 01:03 | XMS_ITS | Continuity of Care Document ---
Author Name Unknown Organization [facility] Address [address], [address] Floor, [address] [place] [id number]- Care Team Providers Care Video Systems Engineer Name Role Phone Chano POLLOCK, Zaheer Primary Care Physician [place] [facility] [id number](s): 08/20/22 - 10/25/22 [facility] [address], [address], [address] [place] [address]- Attending Physician: Jenni Rosen NP Admitting Physician: Jenni Rosen NP Allergies, Adverse Reactions, Alerts Substance Reaction [...] Refills, Maintenance, 08/29/22 7:50:00 EST, EC Tablet, [facility]/pharmacy #[id number], d/c propranolol Start Date: 08/29/22 Stop [...] Refills, Soft Stop, 08/29/22 7:49:00 EST, Tablet, [facility]/pharmacy #[id number], d/ c sumatriptan Start Date: 08/29/22 [...] Team Personnel Name: Zaheer Madden MD Position: [facility] Outreach Member Role: PCP Address: Address: [address] [place] [address]- [place] Name: Jose Carranza RN Position: [facility] RN Member Role: Primary Care Nurse Name: Donna Manley RN Position: [facility] RN Member Role: Primary Care Nurse Name: Mykel Matos DO Position: [facility] Renal MD Member Role: Lifetime Consulting Physician Address: Address: [address] [place] [address] [address] [facility] [place] [address]- Name: Yumiko Garner Position: [facility] OB OA Member Role: Primary Care Nurse Name: Neyda RAWLS, Rusty Burgos Position: [facility] RN Member Role: Primary Care Nurse Care Team Related Persons Name: VIOLET LATHAM Address: home [address] [place] [address] Name: ANNABELLE CONNORS Address: home [address] [place] [address]
--- OUTSIDE RECORDS SUMMARY | 2022-11-30 01:04 | XMS_ITS | Continuity of Care Document ---
Author Name Unknown Organization [facility] Address [address] [facility], [address] Floor, [address] [place] [address]- Care Team Providers Care Construction Cost Estimator Name Role Phone Zaheer Madden MD Primary Care Physician [phone] [place] [facility] [place] [id number] Date(s): 08/29/22 - 09/28/22 [facility] [address], [address], [address] [place] [address]- Attending Physician: Jo Ann Goodman Admitting Physician: Admtr, Jo Ann Referring Physician: Admtr, ArPrecious Allergies, Adverse Reactions, Alerts Substance Reaction Severity [...] Refills, Maintenance, 08/29/22 7:50:00 EST, EC Tablet, [facility]/pharmacy #[id number], d/c propranolol Start Date: [...] Refills, Soft Stop, 08/29/22 7:49:00 EST, Tablet, [facility]/pharmacy #[id number], d/ c sumatriptan Start [...] Team Personnel Name: Zaheer Madden MD Position: [facility] Outreach Member Role: PCP Address: Address: [address] [place] [address]- [place] Name: Jose Carranza RN Position: [facility] RN Member Role: Primary Care Nurse Name: Donna Manley RN Position: [facility] RN Member Role: Primary Care Nurse Name: Mykel Matos DO Position: [facility] Renal MD Member Role: Lifetime Consulting Physician Address: Address: [address] [place] [address] [address] [facility] [place] [place] [address]- Name: Yumiko Garner Position: [facility] OB OA Member Role: Primary Care Nurse Name: Neyda RAWLS, Rusty Burgos Position: [facility] RN Member Role: Primary Care Nurse Care Team Related Persons Name: VIOLET LATHAM Address: home [address] [place] [address] Name: ANNABELLE CONNORS Address: home [address] [place] [address]
[2022-11-30 01:05] LABS: Alanine Aminotransferase 14 U/L (0-31); Albumin Level 4.3 g/dL (3.5-5.0); Alkaline Phosphatase 109 U/L (39-117); Anion Gap 13 (12-20); Aspartate Amino Transferase 15 U/L (5-31); Bilirubin Total 0.4 mg/dL (0.0-1.0); Blood Urea Nitrogen 8 mg/dL (9-16); Calcium 9.2 mg/dL (8.4-10.2); Carbon Dioxide 22 mmol/L (22-29); Chloride 106 mmol/L (96-108); Estimated Glomerular Filt Rate > 60; Ethanol < 10 mg/dL; Glucose Random 148 mg/dL (60-115); Lipase 26 U/L (8-78); Potassium 4.1 mmol/L (3.3-5.1); Sodium 137 mmol/L (135-145); Total Protein 6.9 g/dL (6.5-8.0)
[2022-11-30 02:07] VITALS: BP 110/67; PULSE 84; RESP 16; TEMP 36.6; O2SAT 95
--- NOTE | 2022-11-30 02:57 | PC.NURSE ---
Pt sleeping at the bedside in no apparent distress. Breaths are even regular and unlabored. Will continue to monitor.
[2022-11-30 04:00] VITALS: RESP 12
[2022-11-30 06:27] VITALS: BP 108/69; PULSE 69; RESP 18; TEMP 36.7; O2SAT 96
--- NOTE | 2022-11-30 06:39 | PC.NURSE ---
pt ambulatory to restroom with steady gait. provider aware.
== END 2022-11-30 06:45 | disposition home or self-care (01) ==
PROVIDERS: Physician Assistant; Emergency Provider Emergency Medicine
DX: F12.19 Cannabis abuse with unspecified cannabis-induced disorder (principal); R42 Dizziness and giddiness; R00.2 Palpitations; Z79.899 Other long term (current) drug therapy
CPT/HCPCS: 36415; 80053; 80307; 83690; 85025; 93005; 99285

== ENCOUNTER 2023-02-15 20:04 | Emergency (ER) | payer MEDICARE, MEDICAID, SELFPAY ==
--- NOTE | ~2023-02-15 | CT_ITS ---
EXAMINATION: CT ABDOMEN AND PELVIS WITHOUT CONTRAST CLINICAL INFORMATION: Pain. COMPARISON: 05/15/2021 TECHNIQUE: Multidetector volumetric imaging was performed from the superior aspect of the liver through the pubic symphysis. Sagittal and coronal reformatted images were obtained on the technologist's workstation. This CT examination was performed using dose optimization techniques as appropriate, variously including the following: *Automated exposure control *Adjustment of mA and/or kV according to patient size (this includes techniques or standardized protocols for targeted exams where dose is matched to indication/reason for exam; i.e. extremities or head) *Use of iterative reconstruction technique DLP: 1064 mGy-cm FINDINGS: LUNG BASES: The visualized lung bases are unremarkable. LIVER, GALLBLADDER, AND BILIARY TREE: The liver is normal in size, shape, and attenuation. No focal hepatic lesion or biliary ductal dilatation is present. Numerous faint gallstones are noted. PANCREAS: Unremarkable. SPLEEN: Unremarkable. ADRENAL GLANDS: Unremarkable. KIDNEYS AND URETERS: The kidneys are normal in size, shape, and attenuation. There is a nonobstructing 3 mm calculus lower pole left kidney. There is no hydronephrosis. No perinephric stranding. BLADDER: Unremarkable. GASTROINTESTINAL TRACT: There has been a previous gastric bypass. There is no evidence for bowel obstruction. The appendix is unremarkable. ABDOMINAL WALL: No significant hernia is appreciated. LYMPH NODES: Normal. VASCULAR: Unremarkable. PELVIC VISCERA: Unremarkable. OSSEOUS STRUCTURES: There is moderate L4-L5 disc degenerative change with a prominent posterior osteophyte. There is mild degenerative change throughout the remaining thoracolumbar spine and facets. CT/CT abdomen pelvis wo IV con IMPRESSION: 1. Cholelithiasis. 2. Nonobstructing left renal calculus. 3. No hydronephrosis. 4. No acute intra-abdominal process. Fleischner guidelines were followed.
--- NOTE | ~2023-02-15 | US_ITS ---
EXAMINATION: US ABDOMEN LIMITED CLINICAL INFORMATION: Epigastric pain. COMPARISON: CT abdomen/pelvis 05/15/2021. TECHNIQUE: Real-time imaging of the gallbladder. US/US abdomen limited FINDINGS/IMPRESSION: Shadowing foci in the region of the gallbladder fossa. Unsure if these represent stones filling a decompressed gallbladder versus surgical clips from prior cholecystectomy. No significant free fluid in the gallbladder fossa. Positive Garrido's sign. Further evaluation with a CT abdomen/pelvis could be obtained as clinically indicated.
[2023-02-15 20:18] VITALS: BP 135/61; PULSE 87; RESP 18; TEMP 36.3; O2SAT 97; BMI 38.2
--- NOTE | 2023-02-15 20:22 | ECG_ITS ---
Test Reason : ABDOMINAL PAIN Blood Pressure : / mmHG Vent. Rate : 075 BPM Atrial Rate : 075 BPM P-R Int : 132 ms QRS Dur : 080 ms QT Int : 392 ms P-R-T Axes : 006 028 024 degrees QTc Int : 437 ms Normal sinus rhythm Normal ECG When compared with ECG of 30-NOV-2022 00:18, No significant change was found Referred By: Héctor Leal Electronically Signed By:MARY WARNER MD
--- NOTE | 2023-02-15 20:25 | ED.GENADULT ---
HPI - General Adult General Chief complaint: Abdominal Pain Stated complaint: gastritis/sharp pain in abd Time Seen by Provider: 02/15/23 21:57 Source: patient Mode of arrival: ambulatory Limitations: no limitations History of Present Illness HPI narrative: Patient with history of gallstone gastric sleeve surgery in 2014 and gastric bypass in 2020 comes here for right upper abdominal and epigastric pain since yesterday after having fried food nauseated vomited 2 times no fever no chills no urinary complaints patient does have increased bloating Related Data Home Medications Medication Instructions Recorded Confirmed cholecalciferol (vitamin D3) 25 25 mcg PO DAILY 10/22/20 10/22/20 mcg (1,000 unit) capsule (Vitamin D3) doxepin 50 mg capsule 50 mg PO DAILY 10/22/20 10/22/20 ferrous sulfate 324 mg (65 mg 324 mg PO DAILY 10/22/20 10/22/20 iron) tablet,delayed release lamotrigine 150 mg tablet 150 mg PO DAILY 10/22/20 10/22/20 multivitamin cap 10/22/20 olanzapine 20 mg tablet (Zyprexa) 20 mg PO DAILY 10/22/20 10/22/20 ondansetron 4 mg disintegrating 4 mg PO Q6H PRN Nausea And Vomiting 10/22/20 10/22/20 tablet pantoprazole 40 mg tablet,delayed 40 mg PO DAILY 10/22/20 10/22/20 release verapamil 40 mg tablet 40 mg PO DAILY 10/22/20 10/22/20 Previous Rx's Medication Instructions Recorded sulfamethoxazole 800 1 tab PO BID #14 tabs 10/22/20 mg-trimethoprim 160 mg tablet (Bactrim DS) nitrofurantoin 100 mg PO Q12H 7 days #14 caps 03/11/21 monohydrate/macrocrystals 100 mg capsule (Macrobid) tranexamic acid 650 mg tablet 650 mg PO BID 5 days #10 tabs 03/11/21 ferrous sulfate 325 mg (65 mg 325 mg PO TID 2 months #180 tabs 04/28/21 iron) tablet ondansetron 4 mg disintegrating 4 mg PO Q6-8H PRN nausea and 04/28/21 tablet vomiting #14 tabs oxycodone 5 mg tablet 5 mg PO Q4H PRN pain #14 tabs 04/28/21 morphine 15 mg immediate release 15 mg PO Q6H PRN pain 3 days #8 05/15/21 tablet tabs nitrofurantoin 100 mg PO BID 7 days #14 caps 05/15/21 monohydrate/macrocrystals 100 mg capsule (Macrobid) ondansetron 4 mg disintegrating 4 mg PO Q8H PRN nausea and 05/15/21 tablet vomiting #20 tabs pantoprazole 40 mg tablet,delayed 40 mg PO DAILY #30 tabs 05/28/21 release (Protonix) meclizine 25 mg tablet 25 mg PO BID PRN dizziness #14 tabs 07/27/22 nitrofurantoin 100 mg PO BID 5 days #10 caps 07/27/22 monohydrate/macrocrystals 100 mg capsule (Macrobid) lorazepam 1 mg tablet (Ativan) 1 mg PO BEDTIME PRN dizziness or 09/03/22 vertigo #7 tabs meclizine 25 mg tablet 25 mg PO TID PRN dizziness #20 tabs 09/03/22 Allergies Allergy/AdvReac Type Severity Reaction Status Date / Time Penicillins Allergy Mild HIVES Verified 02/15/23 20:18 naproxen [NAPROXEN] Allergy Unknown BLEEDING Verified 02/15/23 20:18 penicillin V Allergy Unknown Hives Verified 02/15/23 20:18 Review of Systems Review of Systems: Yes all other systems are reviewed and are negative [facility] Past Medical History Medical History Anxiety Bipolar 1 disorder delivery delivered PTSD (post-traumatic stress disorder) Surgical History Gastric bypass status for obesity Tubal ligation status Social History Social History Alcohol intake: current Alcohol intake frequency: holidays/special occasions only Patient Tobacco Use Status: Never used Tobacco Smoked in Last 30 Days: Yes Use of substances other than those prescribed or required for medical reasons: No Substance Use Type: Marijuana Advance Directives: No Advance Directives Information Provided: Yes Patient : No Physical Exam ED Vital Signs: Vital Signs - 24 hr 02/15/23 20:18 02/15/23 22:28 02/15/23 22:29 Temperature 97.4 F 98.6 F Pulse Rate 87 77 Respiratory Rate 18 18 18 Blood Pressure 135/61 133/77 Pulse Oximetry 97 97 Oxygen Delivery Method Room Air Room Air 02/16/23 01:41 Temperature Pulse Rate 84 Respiratory Rate 17 Blood Pressure 135/90 H Pulse Oximetry 98 Oxygen Delivery Method Room Air BMI result Body Mass Index 38.2 Appearance: Alert. Oriented X3. No acute distress. Eyes: No pallor or icterus ENT: Pharynx normal. Oral Mucosa moist Neck: Normal inspection. Neck supple. CVS: Normal heart rate and rhythm. Pulses normal. Respiratory: No respiratory distress. Equal air entry bilateral, no wheezing/rales/rhonchi Abdomen: Soft , tenderness right upper quadrant, Bowel sounds are present, no mass palpable, no CVA tenderness Skin: Skin warm and dry. Normal skin color. Normal skin turgor. Extremities: No lower extremity edema. No calf tenderness Neuro: Oriented X 3. No motor deficit. Course Course Course Narrative: RME: 42 yold female presents to the ED for upper abdominal pain after eating fried fatty food earlier in the evening. Patient states no chest pain or shorntess of breath. labs US ordered Medications Administered Discontinued Medications Generic Name Dose Route Start Last Admin Trade Name Freq PRN Reason Stop Dose Admin Sodium Chloride 1,000 mls @ 999 mls/hr 02/15/23 22:10 02/15/23 23:30 Ns IV 02/15/23 23:10 Infused .Q1H1M ONE Infusion Morphine Sulfate 4 mg 02/15/23 22:10 02/15/23 22:28 Morphine Sulfate 4 Mg/Ml Cartridge IVPUSH 02/15/23 22:11 4 mg ONCE ONE Administration Protocol Ondansetron HCl 4 mg 02/15/23 22:10 02/15/23 22:28 Ondansetron Hcl 4 Mg/2 Ml Vial IVPUSH 02/15/23 22:11 4 mg ONCE ONE Administration Medical Decision Making Medical Decision Making [facility] Narrative: Patient with cholelithiasis no vomiting at this time pain is improved advised patient to follow-up with surgeon CT scan report is pending Differential Diagnosis Differential Diagnoses: The differential diagnosis associated with the presentation includes Acute cholecystitis/pancreatitis/gastritis Lab Data [facility] Lab Attestation statement: I reviewed the patient's lab results. 02/15/23 21:17 02/15/23 21:17 Labs: Lab Results 02/15/23 02/15/23 02/15/23 Range/Units 21:17 21:17 21:17 WBC 10.3 (4.8-10.8) X10*3/uL RBC 4.33 (4.20-5.50) X10*6/uL Hgb 11.1 L (12.0-16.0) g/dl Hct 34.9 L (37.0-47.0) % MCV 80.6 (80.0-98.0) fL MCH 25.6 L (27.0-33.0) pg MCHC 31.8 (31.0-35.0) g/dl RDW 13.1 (11.0-16.0) % Plt Count 334 (160-400) X10*3/uL MPV 8.6 L (9.4-12.3) fL Immature Gran % (Auto) 0.3 (0.0-0.4) % Neut % (Auto) 66.0 (45-73) % Lymph % (Auto) 25.5 (20-40) % Ritchie % (Auto) 7.1 (2-11) % Eos % (Auto) 0.6 (0-4) % Baso % (Auto) 0.5 (0-2) % Lymph # (Auto) 2.6 (1.2-4.9) X10*3/uL Ritchie # (Auto) 0.7 (0.1-1.2) X10*3/uL Eos # (Auto) 0.1 (0.0-0.4) X10*3/uL Baso # (Auto) 0.1 (0.0-0.2) X10*3/uL Abs Immat Gran (auto) 0.03 (0.00-0.03) X10*3/uL Absolute Neuts (auto) 6.8 (2.0-8.3) x10*3/uL Absolute Nucleated RBC 0.000 (0.0-0.012) X10*3/uL Nucleated RBC % (auto) 0.0 (0.0-0.2) /100WBC Sodium 141 (135-145) mmol/L Potassium 3.8 (3.3-5.1) mmol/L Chloride 109 H (96-108) mmol/L Carbon Dioxide 25 (22-29) mmol/L Anion Gap 11 L (12-20) BUN 6 L (9-16) mg/dL Creatinine 0.70 (0.5-1.4) mg/dL Estim Creat Clear Calc 136.9 Estimated GFR > 60 Random Glucose 91 (60-115) mg/dL Calcium 9.2 (8.4-10.2) mg/dL Total Bilirubin 0.2 (0.0-1.0) mg/dL AST 15 (5-31) U/L ALT 13 (0-31) U/L Alkaline Phosphatase 112 (39-117) U/L Troponin I High Sens < 2.7 (<3.5-17.0) ng/L Total Protein 6.6 (6.5-8.0) g/dL Albumin 3.9 (3.5-5.0) g/dL Lipase 21 (8-78) U/L Discharge Plan Discharge Clinical Impression: Cholelithiasis, Biliary colic Patient Disposition: Home, Self-Care Instructions: Biliary Colic (ED), Gallstones (ED) Additional Instructions: Follow-up with surgeon for further evaluation as possible outpatient surgery Avoid fried food Report to ER if worsening of the pain Prescriptions: No Action lamotrigine 150 mg Tablet 150 mg PO DAILY doxepin 50 mg Capsule 50 mg PO DAILY verapamil 40 mg Tablet 40 mg PO DAILY pantoprazole 40 mg Tablet,Delayed Release (Dr/Ec) 40 mg PO DAILY ondansetron 4 mg Tablet,Disintegrating 4 mg PO Q6H PRN (Reason: Nausea And Vomiting) multivitamin Capsule olanzapine [Zyprexa] 20 mg Tablet 20 mg PO DAILY cholecalciferol (vitamin D3) [Vitamin D3] 25 mcg (1,000 unit) Capsule 25 mcg PO DAILY ferrous sulfate 324 mg (65 mg iron) Tablet,Delayed Release (Dr/Ec) 324 mg PO DAILY sulfamethoxazole-trimethoprim [Bactrim DS] 800-160 mg tablet 1 tab PO BID Qty: 14 0RF nitrofurantoin monohyd/m-cryst [Macrobid] 100 mg capsule 100 mg PO Q12H 7 Days Qty: 14 0RF Rx Instructions: must administer with a meal/food tranexamic acid 650 mg tablet 650 mg PO BID 5 Days Qty: 10 0RF ondansetron 4 mg tablet,disintegrating 4 mg PO Q6-8H PRN (Reason: nausea and vomiting) Qty: 14 0RF oxycodone 5 mg tablet 5 mg PO Q4H PRN (Reason: pain) Qty: 14 0RF Rx Instructions: Patient may request partial fill ferrous sulfate 325 mg (65 mg iron) tablet 325 mg PO TID 60 Days Qty: 180 0RF morphine 15 mg tablet 15 mg PO Q6H PRN (Reason: pain) 3 Days Qty: 8 0RF ondansetron 4 mg tablet,disintegrating 4 mg PO Q8H PRN (Reason: nausea and vomiting) Qty: 20 0RF nitrofurantoin monohyd/m-cryst [Macrobid] 100 mg capsule 100 mg PO BID 7 Days Qty: 14 0RF Rx Instructions: must administer with a meal/food pantoprazole [Protonix] 40 mg tablet,delayed release (DR/EC) 40 mg PO DAILY Qty: 30 0RF meclizine 25 mg tablet 25 mg PO BID PRN (Reason: dizziness) Qty: 14 0RF nitrofurantoin monohyd/m-cryst [Macrobid] 100 mg capsule 100 mg PO BID 5 Days Qty: 10 0RF Rx Instructions: must administer with a meal/food meclizine 25 mg tablet 25 mg PO TID PRN (Reason: dizziness) Qty: 20 0RF lorazepam [Ativan] 1 mg tablet 1 mg PO BEDTIME PRN (Reason: dizziness or vertigo) Qty: 7 0RF Referrals: Cruzito Lott MD [Physician] - 1 week Interventions: ED Discharge Assessment Last Done: 02/16/23 02:22 Discharge Date/Time: 02/16/23 02:22
[2023-02-15 21:24] LABS: MANUAL DIFF FLAG NO
[2023-02-15 21:26] LABS: Basophils Absolute Auto 0.1 X10*3/uL (0.0-0.2); Basophils Percent Auto 0.5 % (0-2); Eosinophils Absolute Auto 0.1 X10*3/uL (0.0-0.4); Eosinophils Percent Auto 0.6 % (0-4); Hematocrit 34.9 % (37.0-47.0); Hemoglobin 11.1 g/dl (12.0-16.0); Imm Gran Abs Auto 0.03 X10*3/uL (0.00-0.03); Imm Gran Pct Auto 0.3 % (0.0-0.4); Lymphocytes Absolute Auto 2.6 X10*3/uL (1.2-4.9); Lymphocytes Percent Auto 25.5 % (20-40); Mean Corpuscular HGB Conc 31.8 g/dl (31.0-35.0); Mean Corpuscular Hemoglobin 25.6 pg (27.0-33.0); Mean Corpuscular Volume 80.6 fL (80.0-98.0); Mean Platelet Volume 8.6 fL (9.4-12.3); Monocytes Absolute Auto 0.7 X10*3/uL (0.1-1.2); Monocytes Percent Auto 7.1 % (2-11); Neutrophils Absolute Auto 6.8 x10*3/uL (2.0-8.3); Platelet Count 334 X10*3/uL (160-400); Red Blood Count 4.33 X10*6/uL (4.20-5.50); Red Cell Distribution Width 13.1 % (11.0-16.0); White Blood Count 10.3 X10*3/uL (4.8-10.8)
[2023-02-15 21:42] LABS: Alanine Aminotransferase 13 U/L (0-31); Albumin Level 3.9 g/dL (3.5-5.0); Alkaline Phosphatase 112 U/L (39-117); Anion Gap 11 (12-20); Aspartate Amino Transferase 15 U/L (5-31); Bilirubin Total 0.2 mg/dL (0.0-1.0); Blood Urea Nitrogen 6 mg/dL (9-16); Calcium 9.2 mg/dL (8.4-10.2); Carbon Dioxide 25 mmol/L (22-29); Chloride 109 mmol/L (96-108); Creatinine Clr Calc Pharmacy 136.9; Estimated Glomerular Filt Rate > 60; Glucose Random 91 mg/dL (60-115); Lipase 21 U/L (8-78); Potassium 3.8 mmol/L (3.3-5.1); Sodium 141 mmol/L (135-145); Total Protein 6.6 g/dL (6.5-8.0)
[2023-02-15 21:56] LABS: Troponin-I High Sensitivity < 2.7 ng/L (<3.5-17.0)
[2023-02-15 22:28] VITALS: RESP 18
[2023-02-15] MEDS: Morphine Sulfate 4 MG/ML CARTRIDGE IVPUSH (22:28)
[2023-02-15] MEDS: ondansetron HCL 4 MG/2 ML VIAL IVPUSH (22:28)
[2023-02-15 22:29] VITALS: BP 133/77; PULSE 77; RESP 18; TEMP 37; O2SAT 97
[2023-02-15] MEDS: 0.9 % Sodium Chloride 1,000 ML 999 ML IV (22:29)
[2023-02-16 01:41] VITALS: BP 135/90; PULSE 84; RESP 17; O2SAT 98
--- NOTE | 2023-02-16 02:10 | PC.NURSE ---
Late entry: Pt A&Ox4, pt reports pain 9/10 constant upper abdominal pain after eating. IV line placed RAC, Pain meds given per MAR, pt reported 7/10 pain with some relief. VSS
== END 2023-02-16 02:22 | disposition home or self-care (01) ==
PROVIDERS: Physician Assistant; Emergency Provider Internal Medicine
DX: K80.50 Calculus of bile duct without cholangitis or cholecystitis without obstruction (principal); R10.13 Epigastric pain; R07.89 Other chest pain; Z79.899 Other long term (current) drug therapy; Z98.84 Bariatric surgery status
CPT/HCPCS: 36415; 74176; 76705; 80053; 83690; 84484; 85025; 93005; 99284; 99285; J2270; J2405

== ENCOUNTER → 2023-02-15 20:22 | Outpatient (BNV) | payer MEDICARE, MEDICAID, SELFPAY | PROVIDERS: Emergency Provider Internal Medicine; Visit Provider Internal Medicine Cardiovascular Disease | DX: R10.9 Unspecified abdominal pain (principal) | CPT/HCPCS: 93010 ==

== ENCOUNTER 2023-05-26 13:15 | Outpatient (REF) | payer MEDICARE, MEDICAID, SELFPAY ==
[2023-05-27 22:03] LABS: C. trachomatis RNA TMA NOT DETECTED (NOT DETECTED); Candida glabrata RNA NOT DETECTED (NOT DETECTED); Candida species RNA NOT DETECTED (NOT DETECTED); N. gonorrhoeae RNA TMA NOT DETECTED (NOT DETECTED); Trichomonas vaginalis RNA NOT DETECTED (NOT DETECTED)
[2023-05-29 08:53] LABS: HPV mRNA E6/E7 rflx Not Detected (Not Detected)
== END 2023-05-26 13:16 | disposition home or self-care (01) ==
LOC: HO.CHCLNP 13:15
PROVIDERS: Visit Provider Advanced Practice Midwife
DX: Z01.419 Encounter for gynecological examination (general) (routine) without abnormal findings (principal); N89.8 Other specified noninflammatory disorders of vagina; Z20.2 Contact with and (suspected) exposure to infections with a predominantly sexual mode of transmission
CPT/HCPCS: 36415; 81513; 87481; 87491; 87591; 87624; 87661; 88142

== ENCOUNTER 2023-05-31 19:02 | Emergency (ER) | payer MEDICARE, MEDICAID, SELFPAY ==
[2023-05-31 19:38] VITALS: BP 115/58; PULSE 81; RESP 17; TEMP 36.4; O2SAT 97; BMI 39.6
--- OUTSIDE RECORDS SUMMARY | 2023-05-31 20:22 | XMS_ITS | Continuity of Care Document ---
Author Name Unknown Organization [facility] Address [address] [facility], [address] d Floor, [address] [place] [id number]- Care Team Providers Care Estate Tax Examiner Name Role Phone Chano POLLOCK, Zaheer Primary Care Physician [phone] Encounter [facility] Date(s): 04/02/23 - 05/02/23 [facility] [address], [address] Floor, [address] [place] [id number] Attending Physician: Jo Ann Goodman Admitting [...] Refills, Maintenance, 08/29/22 7:50:00 EST, EC Tablet, [facility]/pharmacy #[id number], d/c propranolol Start Date: 08/29/22 [...] Refills, Soft Stop, 08/29/22 7:49:00 EST, Tablet, [facility]/pharmacy #[id number], d/ c sumatriptan Start Date: [...] Team Personnel Name: Zaheer Madden MD Position: [facility] Outreach Member Role: PCP Address: Address: [address] [place] [address]- [place] Name: Jose Carranza RN Position: S RN Member Role: Primary Care Nurse Name: Donna Manley RN Position: S RN Member Role: Primary Care Nurse Name: Mykel Matos DO Position: [facility] Renal MD Member Role: Lifetime Consulting Physician Address: Address: [address] [place] [address] [address] [facility] [place] [address]- Name: Rusty Faye RN Position: [facility] RN Member Role: Primary Care Nurse Care Team Related Persons Name: VIOLET LATHAM Address: home [address] [id number] Name: ANNABELLE CONNORS Address: home [address] [place] [id number]
--- OUTSIDE RECORDS SUMMARY | 2023-05-31 20:22 | XMS_ITS | Continuity of Care Document ---
Author Name Unknown Organization [facility] Address [address] [facility], [address] Floor, [address] [place] [id number]- Care Team Providers Care Take Down Inspector Name Role Phone Chano POLLOCK, Zaheer Primary Care Physician [place] [facility]s): 01/02/23 - 05/02/23 [facility] [address], [address], [address] [place] [id number] Attending Physician: Chandra Coronado MD Admitting Physician: [...] Refills, Maintenance, 08/29/22 7:50:00 EST, EC Tablet, [facility]/pharmacy #[id number], d/c propranolol Start Date: 08/29/22 Stop [...] Refills, Soft Stop, 08/29/22 7:49:00 EST, Tablet, [facility]/pharmacy #[id number], d/ c sumatriptan Start Date: 08/29/22 [...] Team Personnel Name: Zaheer Madden MD Position: [facility] Outreach Member Role: PCP Address: Address: [address] [place] [address]- [place] Name: Jose Carranza RN Position: [facility] RN Member Role: Primary Care Nurse Name: Donna Manley RN Position: [facility] RN Member Role: Primary Care Nurse Name: Mykel Matos DO Position: [facility] Renal MD Member Role: Lifetime Consulting Physician Address: Address: [address] [place] [address] [address] [facility] [place] [address]- Name: Neyda RAWLS, Rusty Burgos Position: [facility] RN Member Role: Primary Care Nurse Care Team Related Persons Name: VIOLET LATHAM Address: home [address] [place] [address] Name: ANNABELLE CONNORS Address: home [address] [place] [id number]
--- NOTE | 2023-05-31 20:33 | PC.NURSE ---
a&ox3, vss and up to date at this time. pt comes in today d/t 8/10 constant headache that radiates towards her ears bilaterally. pt denies vision changes/dizziness/lightheadedness. pt states pain worsens w/ movement. pt awaiting swab results at this time. respirations even and unlabored.
[2023-05-31 20:44] LABS: Influenza A PCR NEGATIVE (Negative); Influenza B PCR NEGATIVE (Negative); Resp Syncy Virus RNA Qual PCR NEGATIVE (Negative); SARS COV2 PCR INHOUSE NEGATIVE (Negative)
--- NOTE | 2023-05-31 22:17 | ED.HA ---
HPI - Headache General Chief Complaint: Headache Stated Complaint: ? sinus infection Time Seen by Provider: 05/31/23 22:05 Source: patient Mode of arrival: ambulatory Limitations: no limitations History of Present Illness HPI Narrative: 43-year-old female who presents emergency department for evaluation of possible sinus infection. Patient states she has not been feeling well for 5 days. She states she is having a headache with pain behind her eyes and face, she has also had rhinorrhea, watery eyes and intermittent cough. She states that she gets these symptoms every couple years and usually treated for a sinus infection with antibiotics. She denied fever, chills, chest pain, shortness of breath, nausea, vomiting or diarrhea. Related Data Home Medications Medication Instructions Recorded Confirmed cholecalciferol (vitamin D3) 25 25 mcg PO DAILY 10/22/20 10/22/20 mcg (1,000 unit) capsule (Vitamin D3) doxepin 50 mg capsule 50 mg PO DAILY 10/22/20 10/22/20 ferrous sulfate 324 mg (65 mg 324 mg PO DAILY 10/22/20 10/22/20 iron) tablet,delayed release lamotrigine 150 mg tablet 150 mg PO DAILY 10/22/20 10/22/20 multivitamin cap 10/22/20 olanzapine 20 mg tablet (Zyprexa) 20 mg PO DAILY 10/22/20 10/22/20 ondansetron 4 mg disintegrating 4 mg PO Q6H PRN Nausea And Vomiting 10/22/20 10/22/20 tablet pantoprazole 40 mg tablet,delayed 40 mg PO DAILY 10/22/20 10/22/20 release verapamil 40 mg tablet 40 mg PO DAILY 10/22/20 10/22/20 Previous Rx's Medication Instructions Recorded sulfamethoxazole 800 1 tab PO BID #14 tabs 10/22/20 mg-trimethoprim 160 mg tablet (Bactrim DS) nitrofurantoin 100 mg PO Q12H 7 days #14 caps 03/11/21 monohydrate/macrocrystals 100 mg capsule (Macrobid) tranexamic acid 650 mg tablet 650 mg PO BID 5 days #10 tabs 03/11/21 ferrous sulfate 325 mg (65 mg 325 mg PO TID 2 months #180 tabs 04/28/21 iron) tablet ondansetron 4 mg disintegrating 4 mg PO Q6-8H PRN nausea and 04/28/21 tablet vomiting #14 tabs oxycodone 5 mg tablet 5 mg PO Q4H PRN pain #14 tabs 04/28/21 morphine 15 mg immediate release 15 mg PO Q6H PRN pain 3 days #8 05/15/21 tablet tabs nitrofurantoin 100 mg PO BID 7 days #14 caps 05/15/21 monohydrate/macrocrystals 100 mg capsule (Macrobid) ondansetron 4 mg disintegrating 4 mg PO Q8H PRN nausea and 05/15/21 tablet vomiting #20 tabs pantoprazole 40 mg tablet,delayed 40 mg PO DAILY #30 tabs 05/28/21 release (Protonix) meclizine 25 mg tablet 25 mg PO BID PRN dizziness #14 tabs 07/27/22 nitrofurantoin 100 mg PO BID 5 days #10 caps 07/27/22 monohydrate/macrocrystals 100 mg capsule (Macrobid) lorazepam 1 mg tablet (Ativan) 1 mg PO BEDTIME PRN dizziness or 09/03/22 vertigo #7 tabs meclizine 25 mg tablet 25 mg PO TID PRN dizziness #20 tabs 09/03/22 cefuroxime axetil 500 mg tablet 500 mg PO Q12H 7 days #14 tabs 05/31/23 Allergies Allergy/AdvReac Type Severity Reaction Status Date / Time Penicillins Allergy Mild HIVES Verified 02/15/23 20:18 naproxen [NAPROXEN] Allergy Unknown BLEEDING Verified 02/15/23 20:18 penicillin V Allergy Unknown Hives Verified 02/15/23 20:18 Review of Systems Review of Systems: Yes all other systems are reviewed and are negative PMFSH Past Medical History Medical History PTSD (post-traumatic stress disorder) Bipolar 1 disorder Anxiety delivery delivered Surgical History Gastric bypass status for obesity Tubal ligation status Social History Alcohol intake: current Alcohol intake frequency: holidays/special occasions only Patient Tobacco Use Status: Never used Tobacco Smoked in Last 30 Days: No Use of substances other than those prescribed or required for medical reasons: No Substance Use Type: Marijuana Advance Directives: No Advance Directives Information Provided: No Patient : No Physical Exam Vital Signs: Vital Signs: Last Vital Signs Temp 97.6 F 05/31/23 19:38 Pulse 81 05/31/23 19:38 Resp 17 05/31/23 19:38 BP 115/58 L 05/31/23 19:38 Pulse Ox 97 05/31/23 19:38 O2 Del Method Room Air 05/31/23 19:38 BMI result Body Mass Index 39.6 Vital signs were normal Exam General: Awake, alert in no distress Head: Normocephalic, atraumatic EENT: PERRL, Lids normal, sclera normal, conjunctiva normal, nose normal , ears normal, throat without erythema or exudates, patient does have tenderness palpation of her maxillary sinuses bilaterally, pain is worse with bending over Neck: Supple, no adenopathy, no trachea midline or C-spine tenderness Lung: breath sounds symmetric, no wheezing, rales or rhonchi Chest: symmetric movement, nontender Heart: regular rate and rhythm, normal S1, S2 no murmurs or rubs Abdomen: soft, non-tender, nondistended, normal bowel sounds Neuro: Awake, alert, oriented, normal speech Psych: Pleasant, cooperative Medical Decision Making Medical Decision Making [facility] Narrative: 43-year-old female with history of bipolar disorder who presents emergency department for evaluation of 5 days of rhinorrhea, facial pain, watery eyes, cough. Patient has had similar symptoms the past and has been treated with antibiotics for sinus infections. Patient's vital signs were normal. Physical examination did reveal bilateral maxillary sinus tenderness. Patient will be treated with cefuroxime 500 mg q.12 hours for 7 days for possible bacterial sinus infection. She was given her 1st dose here in the emergency department. She did take Tylenol and ibuprofen for pain and fever. My independent interpretation patient's laboratory evaluation is as follows: COVID-19, RSV and influenza were negative Differential Diagnosis Differential Diagnoses: The differential diagnosis associated with the presentation includes Differential diagnosis includes was not limited to upper respiratory tract infection, viral sinusitis, bacterial sinusitis, COVID-19, influenza, RSV Lab Data [facility] Lab Attestation statement: I reviewed the patient's lab results. See [facility] Labs: Lab Results 05/31/23 Range/Units 20:02 Influenza Type A (PCR) NEGATIVE (Negative) Influenza Type B (PCR) NEGATIVE (Negative) RSV RNA Qual (PCR) NEGATIVE (Negative) SARS-CoV-2 RNA (RT-PCR) NEGATIVE (Negative) Prescription Management I considered prescription management with: Antibiotic Chronic Conditions Patient?s care impacted by: Other Discharge Plan Discharge Clinical Impression: Acute infection of sinus Qualifiers: Sinusitis location: maxillary Recurrence: non-recurrent Qualified Code(s): J01.00 - Acute maxillary sinusitis, unspecified Patient Disposition: Home, Self-Care Instructions: Sinusitis (ED) Additional Instructions: Your COVID-19, RSV and influenza tests were negative Your symptoms are consistent with a sinus infection which can be either a viral infection or bacterial infection. Take cefuroxime 500 mg pills, 1 pill every 12 hours for 7 days Take ibuprofen 200 mg pills, 2 pills every 6 hours as needed for pain or fever. Take Tylenol (acetaminophen) 500 mg pills, 2 pills every 6 hours as needed for pain or fever. Follow-up with your doctor in 2 days. Please return to the emergency department if your symptoms get worse or if you develop any symptoms that are concerning to you. Prescriptions: New cefuroxime axetil 500 mg tablet 500 mg PO Q12H 7 Days Qty: 14 0RF No Action lamotrigine 150 mg Tablet 150 mg PO DAILY doxepin 50 mg Capsule 50 mg PO DAILY verapamil 40 mg Tablet 40 mg PO DAILY pantoprazole 40 mg Tablet,Delayed Release (Dr/Ec) 40 mg PO DAILY ondansetron 4 mg Tablet,Disintegrating 4 mg PO Q6H PRN (Reason: Nausea And Vomiting) multivitamin Capsule olanzapine [Zyprexa] 20 mg Tablet 20 mg PO DAILY cholecalciferol (vitamin D3) [Vitamin D3] 25 mcg (1,000 unit) Capsule 25 mcg PO DAILY ferrous sulfate 324 mg (65 mg iron) Tablet,Delayed Release (Dr/Ec) 324 mg PO DAILY sulfamethoxazole-trimethoprim [Bactrim DS] 800-160 mg tablet 1 tab PO BID Qty: 14 0RF nitrofurantoin monohyd/m-cryst [Macrobid] 100 mg capsule 100 mg PO Q12H 7 Days Qty: 14 0RF Rx Instructions: must administer with a meal/food tranexamic acid 650 mg tablet 650 mg PO BID 5 Days Qty: 10 0RF ondansetron 4 mg tablet,disintegrating 4 mg PO Q6-8H PRN (Reason: nausea and vomiting) Qty: 14 0RF oxycodone 5 mg tablet 5 mg PO Q4H PRN (Reason: pain) Qty: 14 0RF Rx Instructions: Patient may request partial fill ferrous sulfate 325 mg (65 mg iron) tablet 325 mg PO TID 60 Days Qty: 180 0RF morphine 15 mg tablet 15 mg PO Q6H PRN (Reason: pain) 3 Days Qty: 8 0RF ondansetron 4 mg tablet,disintegrating 4 mg PO Q8H PRN (Reason: nausea and vomiting) Qty: 20 0RF nitrofurantoin monohyd/m-cryst [Macrobid] 100 mg capsule 100 mg PO BID 7 Days Qty: 14 0RF Rx Instructions: must administer with a meal/food pantoprazole [Protonix] 40 mg tablet,delayed release (DR/EC) 40 mg PO DAILY Qty: 30 0RF meclizine 25 mg tablet 25 mg PO BID PRN (Reason: dizziness) Qty: 14 0RF nitrofurantoin monohyd/m-cryst [Macrobid] 100 mg capsule 100 mg PO BID 5 Days Qty: 10 0RF Rx Instructions: must administer with a meal/food meclizine 25 mg tablet 25 mg PO TID PRN (Reason: dizziness) Qty: 20 0RF lorazepam [Ativan] 1 mg tablet 1 mg PO BEDTIME PRN (Reason: dizziness or vertigo) Qty: 7 0RF
[2023-05-31] MEDS: cefuroxime axetiL 500 MG TABLET PO (22:48)
== END 2023-05-31 22:56 | disposition home or self-care (01) ==
PROVIDERS: Emergency Provider Emergency Medicine Emergency Medical Services
DX: J01.00 Acute maxillary sinusitis, unspecified (principal); R51.9 Headache, unspecified; J34.89 Other specified disorders of nose and nasal sinuses; R05.9 Cough, unspecified; Z20.822 Contact with and (suspected) exposure to COVID-19; Z20.828 Contact with and (suspected) exposure to other viral communicable diseases
CPT/HCPCS: 0241U; 99283; 99284

== ENCOUNTER 2023-06-23 14:53 | Outpatient (REF) | payer MEDICARE, MEDICAID, SELFPAY ==
--- NOTE | ~2023-06-23 | US_ITS ---
EXAMINATION: US PELVIC COMPLETE WITH TV CLINICAL INFORMATION: Heavy menses is, history of fibroids COMPARISON: Ultrasound of the pelvis on 07/29/2020 TECHNIQUE: Real-time transabdominal and transvaginal ultrasound scanning. FINDINGS: Transabdominal and transvaginal ultrasound examination of the pelvis were performed. Uterus: Anteverted; measuring 10.2 cm in length, 5.7 cm in AP diameter and 6.1 cm in width. Uterine cervix measures 2.9 cm in length. Nabothian cysts are seen in the uterine cervix. Echotexture: normal sonographic appearance Endometrial Thickness: 0.6 cm. Right ovary: 2.7 x 2.0 x 2.0 cm (SAG x AP x TRV), calculated volume of 5.7 mL, with normal echotexture. Previously 3.9 x 2.9 x 3.0 cm (SAG x AP x TRV), calculated volume of 17.8 mL Left ovary: 3.2 x 1.9 x 2.4 cm (SAG x AP x TRV), calculated volume of 7.6mL, with normal echotexture. Previously 2.5 x 2.0 x 2.0 cm (SAG x AP x TRV), calculated volume of 5.8 mL No free fluid is present. Limited view of the urinary bladder shows no abnormality. US/US pelvic and transvaginal IMPRESSION: 1. The previously reported cervical mass could not be visualized on the current examination. 2. Normal sonographic appearance of uterus. 3. Normal sonographic appearance of bilateral ovaries. 4. No abnormal pelvic fluid collection is seen.
== END 2023-06-23 14:54 | disposition home or self-care (01) ==
LOC: HO.US 14:53
PROVIDERS: Visit Provider Advanced Practice Midwife
DX: D21.9 Benign neoplasm of connective and other soft tissue, unspecified (principal)
CPT/HCPCS: 76830; 76856

== ENCOUNTER 2023-06-24 12:03 | Outpatient (REF) | payer MEDICARE, MEDICAID, SELFPAY ==
[2023-06-24 14:04] LABS: MANUAL DIFF FLAG NO
[2023-06-24 14:07] LABS: Basophils Percent Auto 0.5 % (0-2); Eosinophils Absolute Auto 0.1 X10*3/uL (0.0-0.4); Eosinophils Percent Auto 1.2 % (0-4); Hematocrit 35.5 % (37.0-47.0); Imm Gran Abs Auto 0.02 X10*3/uL (0.00-0.03); Imm Gran Pct Auto 0.3 % (0.0-0.4); Lymphocytes Absolute Auto 1.8 X10*3/uL (1.2-4.9); Lymphocytes Percent Auto 27.2 % (20-40); Mean Corpuscular Hemoglobin 24.3 pg (27.0-33.0); Mean Corpuscular Volume 78.5 fL (80.0-98.0); Mean Platelet Volume 9.4 fL (9.4-12.3); Monocytes Absolute Auto 0.5 X10*3/uL (0.1-1.2); Monocytes Percent Auto 7.4 % (2-11); Neutrophils Absolute Auto 4.2 x10*3/uL (2.0-8.3); Neutrophils Percent Auto 63.4 % (45-73); Platelet Count 431 X10*3/uL (160-400); Red Blood Count 4.52 X10*6/uL (4.20-5.50); Red Cell Distribution Width 14.1 % (11.0-16.0); White Blood Count 6.6 X10*3/uL (4.8-10.8)
[2023-06-24 14:30] LABS: Alanine Aminotransferase 15 U/L (0-31); Albumin Level 4.6 g/dL (3.5-5.0); Alkaline Phosphatase 117 U/L (39-117); Anion Gap 11 (12-20); Aspartate Amino Transferase 20 U/L (5-31); Bilirubin Total 0.4 mg/dL (0.0-1.0); Blood Urea Nitrogen 6 mg/dL (9-16); Calcium 9.8 mg/dL (8.4-10.2); Carbon Dioxide 28 mmol/L (22-29); Chloride 106 mmol/L (96-108); Cholesterol 155 mg/dL (<200); Estimated Glomerular Filt Rate > 60; Glucose Random 91 mg/dL (60-115); HDL Cholesterol 51 mg/dL (>40); LDL Cholesterol Calculated 84 mg/dL (<100); Potassium 4.2 mmol/L (3.3-5.1); Sodium 141 mmol/L (135-145); Total Protein 7.5 g/dL (6.5-8.0); Triglycerides 102 mg/dL (<150)
[2023-06-24 14:47] LABS: TSH reflex Free T4 2.43 uIU/mL (0.32-4.0)
== END 2023-06-24 12:04 | disposition home or self-care (01) ==
LOC: HO.CHCLDS 12:03
PROVIDERS: Visit Provider Internal Medicine
DX: Z00.00 Encounter for general adult medical examination without abnormal findings (principal); N92.0 Excessive and frequent menstruation with regular cycle; E66.9 Obesity, unspecified
CPT/HCPCS: 36415; 80053; 80061; 84443; 85025

== ENCOUNTER 2023-08-24 08:01 | Outpatient (REF) | payer MEDICARE, MEDICAID, SELFPAY ==
--- NOTE | ~2023-08-24 | MM_ITS ---
EXAMINATION: MM SCREENING DIGITAL BREAST TOMOSYNTHESIS, BILATERAL CLINICAL INFORMATION: Screening. Asymptomatic. COMPARISON: Mammography: This is a baseline mammogram. TECHNIQUE: Digital breast tomosynthesis is performed in both the craniocaudal and mediolateral oblique views along with computer-aided detection (CAD). Synthesized 2D images are generated from the tomosynthesis. FINDINGS: There are scattered areas of fibroglandular density (ACR BI-RADS breast composition Category b). There are no significant masses, abnormal calcifications, or other abnormalities. MM/MM tomosynthesis screening BI IMPRESSION: No mammographic evidence of malignancy. ASSESSMENT: BI-RADS BI-RADS 1 - Negative RECOMMENDATION: Routine annual mammography screening. 1 year F/U This examination should not preclude the clinical evaluation of a suspicious palpable abnormality. This patient's information was entered into a reminder system with a target due date for their next mammogram.
== END 2023-08-24 08:02 | disposition home or self-care (01) ==
LOC: HO.MAMMO 08:01
PROVIDERS: PCP Internal Medicine; Visit Provider Advanced Practice Midwife
DX: Z12.31 Encounter for screening mammogram for malignant neoplasm of breast (principal)
CPT/HCPCS: 77063; 77067

== ENCOUNTER → 2023-08-24 08:30 | Outpatient (BNV) | payer MEDICARE, MEDICAID, SELFPAY | PROVIDERS: PCP Internal Medicine; Visit Provider Radiology Diagnostic Radiology | DX: Z12.31 Encounter for screening mammogram for malignant neoplasm of breast (principal) | CPT/HCPCS: 77063; 77067 ==

== ENCOUNTER 2023-09-02 20:28 | Emergency (ER) | payer MEDICARE, MEDICAID, SELFPAY ==
--- NOTE | ~2023-09-02 | XR_ITS ---
EXAMINATION: XR CHEST CLINICAL INFORMATION: Chest pain COMPARISON: Previous chest x-ray July 2020 TECHNIQUE: 2 views of the chest were obtained. FINDINGS: No significant abnormality is noted involving the heart, lungs, mediastinum, bony thorax or soft tissues. Degenerative changes of the thoracic spine and curvature to the right. XR/XR chest 2V IMPRESSION: No evidence for acute disease in the chest.
--- NOTE | 2023-09-02 20:29 | ECG_ITS ---
Test Reason : CHEST PAIN Blood Pressure : / mmHG Vent. Rate : 083 BPM Atrial Rate : 083 BPM P-R Int : 152 ms QRS Dur : 076 ms QT Int : 380 ms P-R-T Axes : 008 015 014 degrees QTc Int : 446 ms Normal sinus rhythm Normal ECG When compared with ECG of 15-FEB-2023 21:10, No significant change was found Referred By: Generic ED Physician Electronically Signed By:HANSA CANELA
[2023-09-02 20:36] VITALS: BP 130/83; PULSE 88; RESP 16; TEMP 36.8; O2SAT 97; BMI 39.1
--- NOTE | 2023-09-02 20:36 | ED.GENADULT ---
HPI - General Adult General Chief complaint: Chest Pain Stated complaint: Chest pains and pain when breathing Time Seen by Provider: 09/02/23 21:11 Source: patient Mode of arrival: ambulatory History of Present Illness HPI narrative: 43-year-old female with history of gastric bypass, status post cholecystectomy who presents from work where she states that she developed 1 of her typical episodes dizziness and took a pill for that then states she began experiencing epigastric sharp pains that worsen with deep breathing associated with some nausea but denies any vomiting and states she has suffered from acid reflux/GERD previously and she reports she continues to pass flatus and have bowel movements. Related Data Home Medications Medication Instructions Recorded Confirmed cholecalciferol (vitamin D3) 25 25 mcg PO DAILY 10/22/20 10/22/20 mcg (1,000 unit) capsule (Vitamin D3) doxepin 50 mg capsule 50 mg PO DAILY 10/22/20 10/22/20 ferrous sulfate 324 mg (65 mg 324 mg PO DAILY 10/22/20 10/22/20 iron) tablet,delayed release lamotrigine 150 mg tablet 150 mg PO DAILY 10/22/20 10/22/20 multivitamin cap 10/22/20 olanzapine 20 mg tablet (Zyprexa) 20 mg PO DAILY 10/22/20 10/22/20 ondansetron 4 mg disintegrating 4 mg PO Q6H PRN Nausea And Vomiting 10/22/20 10/22/20 tablet pantoprazole 40 mg tablet,delayed 40 mg PO DAILY 10/22/20 10/22/20 release verapamil 40 mg tablet 40 mg PO DAILY 10/22/20 10/22/20 Previous Rx's Medication Instructions Recorded sulfamethoxazole 800 1 tab PO BID #14 tabs 10/22/20 mg-trimethoprim 160 mg tablet (Bactrim DS) nitrofurantoin 100 mg PO Q12H 7 days #14 caps 03/11/21 monohydrate/macrocrystals 100 mg capsule (Macrobid) tranexamic acid 650 mg tablet 650 mg PO BID 5 days #10 tabs 03/11/21 ferrous sulfate 325 mg (65 mg 325 mg PO TID 2 months #180 tabs 04/28/21 iron) tablet ondansetron 4 mg disintegrating 4 mg PO Q6-8H PRN nausea and 04/28/21 tablet vomiting #14 tabs oxycodone 5 mg tablet 5 mg PO Q4H PRN pain #14 tabs 04/28/21 morphine 15 mg immediate release 15 mg PO Q6H PRN pain 3 days #8 05/15/21 tablet tabs nitrofurantoin 100 mg PO BID 7 days #14 caps 05/15/21 monohydrate/macrocrystals 100 mg capsule (Macrobid) ondansetron 4 mg disintegrating 4 mg PO Q8H PRN nausea and 05/15/21 tablet vomiting #20 tabs pantoprazole 40 mg tablet,delayed 40 mg PO DAILY #30 tabs 05/28/21 release (Protonix) meclizine 25 mg tablet 25 mg PO BID PRN dizziness #14 tabs 07/27/22 nitrofurantoin 100 mg PO BID 5 days #10 caps 07/27/22 monohydrate/macrocrystals 100 mg capsule (Macrobid) lorazepam 1 mg tablet (Ativan) 1 mg PO BEDTIME PRN dizziness or 09/03/22 vertigo #7 tabs meclizine 25 mg tablet 25 mg PO TID PRN dizziness #20 tabs 09/03/22 cefuroxime axetil 500 mg tablet 500 mg PO Q12H 7 days #14 tabs 05/31/23 nitrofurantoin 100 mg PO Q12H 5 days #10 caps 09/02/23 monohydrate/macrocrystals 100 mg capsule (Macrobid) Allergies Allergy/AdvReac Type Severity Reaction Status Date / Time Penicillins Allergy Mild HIVES Verified 09/02/23 20:36 naproxen [NAPROXEN] Allergy Unknown BLEEDING Verified 09/02/23 20:36 penicillin V Allergy Unknown Hives Verified 09/02/23 20:36 Review of Systems Review of Systems: Pertinent positives and negatives as stated in [facility] Past Medical History Source: nursing notes reviewed Medical History PTSD (post-traumatic stress disorder) Bipolar 1 disorder Anxiety delivery delivered Surgical History Gastric bypass status for obesity Tubal ligation status Social History Social History Alcohol intake: current Alcohol intake frequency: holidays/special occasions only Patient Tobacco Use Status: Never used Tobacco Smoked in Last 30 Days: No Use of substances other than those prescribed or required for medical reasons: Yes Substance Use Type: Marijuana Substance Use Frequency: Weekly Advance Directives: No Advance Directives Information Provided: No Physical Exam ED Vital Signs: Vital Signs - 24 hr 09/02/23 20:36 09/02/23 21:23 Temperature 98.3 F Pulse Rate 88 82 Respiratory Rate 16 16 Blood Pressure 130/83 122/79 Pulse Oximetry 97 98 Oxygen Delivery Method Room Air Room Air BMI result Body Mass Index 39.1 VITAL SIGNS: Reviewed. GENERAL: Elevated BMI, Well developed, well nourished, in no acute distress. HEAD: Normocephalic/atraumatic EYES: PERRLA, EOMI EARS: Ext canals without abnormality NOSE: Nares patent bilateral OROPHARYNX: no oral lesions noted, posterior pharynx clear NECK: Supple, no adenopathy LUNGS: Normal breath sounds. No adventitious sounds or accessory muscle use. SpO2<98> CARDIOVASCULAR: Regular rate and rhythm without noted murmurs ABDOMEN: Soft, non-tender, non-distended with bowel sounds. MUSCULOSKELETAL: No tenderness, deformities, or effusions noted on gross inspection. EXTREMITIES: No cyanosis, clubbing or edema. SKIN: Inspection of the skin reveals no rashes NEUROLOGIC: Alert and oriented x 4. Strength and sensation to light touch were grossly intact x 4. Course Course Course Narrative: This is a rapid medical exam: Additional HPI, ROS, PE not included below will be deferred to primary provider. Patient is a 43-year-old female with history of PTSD, Bipolar 1, anxiety presenting to the emergency department with complaint of chest pain as well as left arm pain for the past 1.5 hours. [place] dizzy at work today, took meclizine around 2 hours ago. Has taken this before without adverse effects. Pain worse with inspiration. Complains of nausea and hot flashes at work Plan: EKG, labs, CXR, viral swabs Medications Administered Discontinued Medications Generic Name Dose Route Start Last Admin Trade Name Freq PRN Reason Stop Dose Admin Al Hydroxide/Mg Hydroxide 30 ml 09/02/23 22:25 09/02/23 22:34 Magnesium Hydrox/Alum Hydrox 30 Ml Oral.Susp PO 09/02/23 22:26 30 ml ONCE ONE Administration Lidocaine HCl 10 ml 09/02/23 22:25 09/02/23 22:34 Lidocaine Hcl Viscous 2 % 15 Ml Solution MUCOUS MEM 09/02/23 22:26 10 ml ONCE ONE Administration Sucralfate 1 gm 09/02/23 22:25 09/02/23 22:34 Sucralfate Oral Suspension 1 Gm/10 Ml Oral.Susp PO 09/02/23 22:26 1 gm ONCE ONE Administration Medical Decision Making Medical Decision Making [facility] Narrative: 43-year-old female with history and clinical presentation that is inconsistent with a cardiac type chest pain and suspect that patient may be experiencing some pill esophagitis/acid reflux/costochondritis and lower clinical suspicion for pancreatitis and patient is status post cholecystectomy. Patient does not use NSAIDs and so lower clinical suspicion for any anastomotic ulcer. I reviewed all investigations and hematologic indices do not demonstrates an leukocytosis/left shift/thrombocytopenia there is a stable normocytic anemia. Coagulation studies are within normal limits, chemistry disease do not demonstrate an TIAN and there are no electrolyte/liver enzymes derangements and high sensitivity troponin is undetectable. EKG without acute changes when compared to EKG from 02/15/2023 and there are no ST elevations. Chest x-ray without evidence of infiltrate or venous congestion otherwise my interpretation is in agreement with radiology's impression. 2228: Provided patient with GI cocktail and will re-evaluate. Patient feeling somewhat better but still experiencing some epigastric discomfort but I have no clinical suspicion for pancreatitis/cardiopulmonary etiology and do not recommend that patient take NSAIDs due to her previous history of gastric bypass. I have no clinical suspicion for obstruction, all results and findings discussed with patient at bedside, to include her urinary tract infection and she will receive initial dose of antibiotics here in the emergency room. Differential Diagnosis Differential Diagnoses: The differential diagnosis associated with the presentation includes Please see the discussion above Admission/Observation Consideration of admission/observation: Escalation of care including admission/observation considered Please see the discussion above Lab Data [facility] Lab Attestation statement: I reviewed the patient's lab results. Please see the discussion above 09/02/23 20:51 09/02/23 20:51 Labs: Lab Results 09/02/23 09/02/23 Range/Units 20:51 21:51 WBC 9.9 (4.8-10.8) X10*3/uL RBC 4.73 (4.20-5.50) X10*6/uL Hgb 11.9 L (12.0-16.0) g/dl Hct 36.5 L (37.0-47.0) % MCV 77.2 L (80.0-98.0) fL MCH 25.2 L (27.0-33.0) pg MCHC 32.6 (31.0-35.0) g/dl RDW 15.7 (11.0-16.0) % Plt Count 350 (160-400) X10*3/uL MPV 8.8 L (9.4-12.3) fL Immature Gran % (Auto) 0.3 (0.0-0.4) % Neut % (Auto) 62.9 (45-73) % Lymph % (Auto) 27.0 (20-40) % [place] % (Auto) 8.5 (2-11) % Eos % (Auto) 0.8 (0-4) % Baso % (Auto) 0.5 (0-2) % Lymph # (Auto) 2.7 (1.2-4.9) X10*3/uL [place] # (Auto) 0.8 (0.1-1.2) X10*3/uL Eos # (Auto) 0.1 (0.0-0.4) X10*3/uL Baso # (Auto) 0.1 (0.0-0.2) X10*3/uL Abs Immat Gran (auto) 0.03 (0.00-0.03) X10*3/uL Absolute Neuts (auto) 6.2 (2.0-8.3) x10*3/uL Absolute Nucleated RBC 0.000 (0.0-0.012) X10*3/uL Nucleated RBC % (auto) 0.0 (0.0-0.2) /100WBC Smear Tech's Comments VERIFIED PT 11.2 (11.1-13.3) SEC INR 0.9 (0.9-1.1) Sodium 139 (135-145) mmol/L Potassium 4.0 (3.3-5.1) mmol/L Chloride 107 (96-108) mmol/L Carbon Dioxide 23 (22-29) mmol/L Anion Gap 13 (12-20) BUN 7 L (9-16) mg/dL Creatinine 0.61 (0.5-1.4) mg/dL Estim Creat Clear Calc 157.6 Estimated GFR > 60 Random Glucose 77 (60-115) mg/dL Calcium 9.5 (8.4-10.2) mg/dL Total Bilirubin 0.2 (0.0-1.0) mg/dL AST 17 (5-31) U/L ALT 14 (0-31) U/L Alkaline Phosphatase 94 (39-117) U/L Troponin I High Sens < 2.7 (<3.5-17.0) ng/L Total Protein 7.1 (6.5-8.0) g/dL Albumin 4.4 (3.5-5.0) g/dL Beta HCG, Quant < 2 mIU/mL Urine Color Yellow Urine Appearance Cloudy Urine pH 5.5 (5.0-9.0) Ur Specific [place] 1.020 (1.005-1.025) Urine Protein Negative (Neg-Trace) mg/dL Urine Glucose (UA) Negative (Negative) mg/dL Urine Ketones Trace (Negative) mg/dL Urine Blood Negative (Negative) Urine Nitrite Positive H (Negative) Ur Leukocyte Esterase Moderate (2+) H (Negative) Urine RBC 0-2 (0-2) /HPF Urine WBC 21-50 H (0-5) /HPF Ur Squamous Epith Cells 11-20 (0-2) /HPF Urine Bacteria 4+ (None Seen) Hyaline Casts 0-2 (0-2) /LPF Influenza Type A (PCR) NEGATIVE (Negative) Influenza Type B (PCR) NEGATIVE (Negative) RSV RNA Qual (PCR) NEGATIVE (Negative) SARS-CoV-2 RNA (RT-PCR) NEGATIVE (Negative) Independent Interpretation I performed an independent interpretation of an: EKG Interpretation: Normal sinus rhythm, HR-83, no STEMI, CA/QRS/QTC is within normal limits. Radiology Impression Discussion of test interpretation with radiology: I have reviewed the radiologist's reading. Radiologist Impression: Please see the discussion above External Record Review External record reviewed: Outpatient record, Prior outpatient labs and Prior outpatient radiology Critical Care Time Critical Care Time Critical Care Time: Yes Total Critical Care Time: 30 Attestation: I personally attest to this time spent taking care of the patient. Discharge Plan Discharge Clinical Impression: GERD (gastroesophageal reflux disease), Urinary tract infection Patient Disposition: Home, Self-Care Instructions: Urinary Tract Infection in Women (ED), Diet for Stomach Ulcers and Gastritis (ED), Gastroesophageal Reflux Disease (ED) Additional Instructions: 1. Resume all home medications as prescribed. 2. Complete the entire course of antibiotics as prescribed. 3. Continue to drink plenty of water and use [id number] antacids to help control the suspected acid reflux that you are experiencing. 4. Follow-up with primary care doctor in the next 3-4 days. Return to the ER for any worsening symptoms. Prescriptions: New nitrofurantoin monohyd/m-cryst [Macrobid] 100 mg capsule 100 mg PO Q12H 5 Days Qty: 10 0RF Rx Instructions: must administer with a meal/food No Action lamotrigine 150 mg Tablet 150 mg PO DAILY doxepin 50 mg Capsule 50 mg PO DAILY verapamil 40 mg Tablet 40 mg PO DAILY pantoprazole 40 mg Tablet,Delayed Release (Dr/Ec) 40 mg PO DAILY ondansetron 4 mg Tablet,Disintegrating 4 mg PO Q6H PRN (Reason: Nausea And Vomiting) multivitamin Capsule olanzapine [Zyprexa] 20 mg Tablet 20 mg PO DAILY cholecalciferol (vitamin D3) [Vitamin D3] 25 mcg (1,000 unit) Capsule 25 mcg PO DAILY ferrous sulfate 324 mg (65 mg iron) Tablet,Delayed Release (Dr/Ec) 324 mg PO DAILY sulfamethoxazole-trimethoprim [Bactrim DS] 800-160 mg tablet 1 tab PO BID Qty: 14 0RF nitrofurantoin monohyd/m-cryst [Macrobid] 100 mg capsule 100 mg PO Q12H 7 Days Qty: 14 0RF Rx Instructions: must administer with a meal/food tranexamic acid 650 mg tablet 650 mg PO BID 5 Days Qty: 10 0RF ondansetron 4 mg tablet,disintegrating 4 mg PO Q6-8H PRN (Reason: nausea and vomiting) Qty: 14 0RF oxycodone 5 mg tablet 5 mg PO Q4H PRN (Reason: pain) Qty: 14 0RF Rx Instructions: Patient may request partial fill ferrous sulfate 325 mg (65 mg iron) tablet 325 mg PO TID 60 Days Qty: 180 0RF morphine 15 mg tablet 15 mg PO Q6H PRN (Reason: pain) 3 Days Qty: 8 0RF ondansetron 4 mg tablet,disintegrating 4 mg PO Q8H PRN (Reason: nausea and vomiting) Qty: 20 0RF nitrofurantoin monohyd/m-cryst [Macrobid] 100 mg capsule 100 mg PO BID 7 Days Qty: 14 0RF Rx Instructions: must administer with a meal/food pantoprazole [Protonix] 40 mg tablet,delayed release (DR/EC) 40 mg PO DAILY Qty: 30 0RF meclizine 25 mg tablet 25 mg PO BID PRN (Reason: dizziness) Qty: 14 0RF nitrofurantoin monohyd/m-cryst [Macrobid] 100 mg capsule 100 mg PO BID 5 Days Qty: 10 0RF Rx Instructions: must administer with a meal/food meclizine 25 mg tablet 25 mg PO TID PRN (Reason: dizziness) Qty: 20 0RF lorazepam [Ativan] 1 mg tablet 1 mg PO BEDTIME PRN (Reason: dizziness or vertigo) Qty: 7 0RF cefuroxime axetil 500 mg tablet 500 mg PO Q12H 7 Days Qty: 14 0RF Referrals: Zaheer Madden MD [Primary Care Provider] -
[2023-09-02 20:59] LABS: Mean Corpuscular HGB Conc 32.6 g/dl (31.0-35.0); Mean Corpuscular Hemoglobin 25.2 pg (27.0-33.0); Mean Platelet Volume 8.8 fL (9.4-12.3); PLT CLUMP 1; SCAN SMEAR FLAG 1
[2023-09-02 21:00] LABS: Basophils Absolute Auto 0.1 X10*3/uL (0.0-0.2); Basophils Percent Auto 0.5 % (0-2); Eosinophils Absolute Auto 0.1 X10*3/uL (0.0-0.4); Eosinophils Percent Auto 0.8 % (0-4); Hematocrit 36.5 % (37.0-47.0); Hemoglobin 11.9 g/dl (12.0-16.0); Imm Gran Abs Auto 0.03 X10*3/uL (0.00-0.03); Imm Gran Pct Auto 0.3 % (0.0-0.4); Lymphocytes Absolute Auto 2.7 X10*3/uL (1.2-4.9); MANUAL DIFF FLAG SCAN; Mean Corpuscular Volume 77.2 fL (80.0-98.0); Monocytes Absolute Auto 0.8 X10*3/uL (0.1-1.2); Monocytes Percent Auto 8.5 % (2-11); Neutrophils Absolute Auto 6.2 x10*3/uL (2.0-8.3); Neutrophils Percent Auto 62.9 % (45-73); Red Blood Count 4.73 X10*6/uL (4.20-5.50); Red Cell Distribution Width 15.7 % (11.0-16.0)
[2023-09-02 21:07] LABS: White Blood Count 9.9 X10*3/uL (4.8-10.8)
[2023-09-02 21:08] LABS: INTERNATIONAL NORM RATIO 0.9 (0.9-1.1); Platelet Count 350 X10*3/uL (160-400); Prothrombin Time 11.2 SEC (11.1-13.3)
[2023-09-02 21:14] LABS: Alanine Aminotransferase 14 U/L (0-31); Albumin Level 4.4 g/dL (3.5-5.0); Alkaline Phosphatase 94 U/L (39-117); Anion Gap 13 (12-20); Aspartate Amino Transferase 17 U/L (5-31); Bilirubin Total 0.2 mg/dL (0.0-1.0); Blood Urea Nitrogen 7 mg/dL (9-16); Calcium 9.5 mg/dL (8.4-10.2); Carbon Dioxide 23 mmol/L (22-29); Chloride 107 mmol/L (96-108); Creatinine Clr Calc Pharmacy 157.6; Estimated Glomerular Filt Rate > 60; Glucose Random 77 mg/dL (60-115); Sodium 139 mmol/L (135-145); Total Protein 7.1 g/dL (6.5-8.0)
[2023-09-02 21:18] LABS: SLIDE REVIEW VERIFIED
[2023-09-02 21:23] VITALS: BP 122/79; PULSE 82; RESP 16; O2SAT 98
[2023-09-02 21:28] LABS: HCG Quantitative < 2 mIU/mL; Troponin-I High Sensitivity < 2.7 ng/L (<3.5-17.0)
[2023-09-02 21:35] LABS: Influenza A PCR NEGATIVE (Negative); Influenza B PCR NEGATIVE (Negative); Resp Syncy Virus RNA Qual PCR NEGATIVE (Negative); SARS COV2 PCR INHOUSE NEGATIVE (Negative)
--- NOTE | 2023-09-02 21:52 | MHC.EDTECH ---
Urine sample collected and sent to lab.
[2023-09-02 22:01] LABS: Appearance Urine Cloudy; Color Urine Yellow; Glucose Urine UA Negative (Negative); Leukocyte Esterase Urine Moderate (2+) (Negative); Nitrite Urine Positive (Negative); PH 5.5 (5.0-9.0); UMIC TRIGGER UACC YES; Urine Blood Negative (Negative); Urine Ketones Trace mg/dL (Negative); Urine Protein Negative (Neg-Trace)
--- NOTE | 2023-09-02 22:05 | PC.NURSE ---
Patient states she's had constant chest pain since earlier this afternoon at work, currently resting on stretcher, call sanon within reach, vital signs WNL.
[2023-09-02] MEDS: Sucralfate Oral Suspension 1 GM/10 ML ORAL.SUSP PO (22:34)
[2023-09-02] MEDS: Lidocaine HCl Viscous 2 % 15 ML SOLUTION 10 ML MUCOUS MEM (22:34)
[2023-09-02] MEDS: Magnesium Hydrox/Alum Hydrox 30 ML ORAL.SUSP PO (22:34)
[2023-09-02 22:44] LABS: Bacteria Urine 4+ (None Seen); Hyaline Casts Urine 0-2 /LPF (0-2); RBC Urine 0-2 /HPF (0-2); UACC Culture Trigger YES; WBC Urine 21-50 /HPF (0-5)
[2023-09-02] MEDS: Nitrofurantoin Monohyd/M-Cryst 100 MG CAPSULE PO (22:57)
[2023-09-02 22:58] VITALS: BP 116/79; PULSE 78; RESP 14; O2SAT 96
== END 2023-09-02 23:02 | disposition home or self-care (01) ==
PROVIDERS: Registered Nurse Emergency; Emergency Provider Student in an Organized Health Care Education/Training Program; PCP Internal Medicine
DX: K21.9 Gastro-esophageal reflux disease without esophagitis (principal); N39.0 Urinary tract infection, site not specified; Z98.84 Bariatric surgery status; Z90.49 Acquired absence of other specified parts of digestive tract; Z11.52 Encounter for screening for COVID-19; Z20.828 Contact with and (suspected) exposure to other viral communicable diseases
CPT/HCPCS: 0241U; 36415; 71046; 80053; 81001; 81003; 84484; 84702; 85025; 85610; 87086; 93005; 99284; 99285

== ENCOUNTER → 2023-09-02 20:29 | Outpatient (BNV) | payer MEDICARE, MEDICAID, SELFPAY | PROVIDERS: Emergency Provider Student in an Organized Health Care Education/Training Program; PCP Internal Medicine; Visit Provider Internal Medicine | DX: R07.9 Chest pain, unspecified (principal) | CPT/HCPCS: 93010 ==

== ENCOUNTER 2023-09-24 09:35 | Outpatient (REF) | payer MEDICARE, MEDICAID, SELFPAY ==
[2023-09-24 14:54] LABS: Appearance Urine Turbid; Color Urine Yellow; Glucose Urine UA Negative (Negative); Leukocyte Esterase Urine Small (1+) (Negative); Nitrite Urine Positive (Negative); Specific Gravity - Urine 1.015 (1.005-1.025); UMIC TRIGGER UA YES; Urine Blood Negative (Negative); Urine Ketones Negative (Negative); Urine Protein Negative (Neg-Trace)
[2023-09-24 15:04] LABS: Bacteria Urine 4+ (None Seen); Hyaline Casts Urine 0-2 /LPF (0-2); Squamous Epithelial Cell Urine >20 /HPF (0-2); WBC Urine 21-50 /HPF (0-5)
[2023-09-24 15:05] LABS: RBC Urine 0-2 /HPF (0-2)
== END 2023-09-24 09:36 | disposition home or self-care (01) ==
LOC: HO.CHCLDS 09:35
PROVIDERS: Visit Provider Internal Medicine
DX: N30.00 Acute cystitis without hematuria (principal)
CPT/HCPCS: 81001

== ENCOUNTER 2023-10-12 21:01 | Emergency (ER) | payer MEDICARE, MEDICAID, SELFPAY ==
[2023-10-12 21:18] VITALS: BP 120/65; PULSE 82; RESP 14; TEMP 36.7; O2SAT 96; BMI 40.2
[2023-10-12 21:38] LABS: Basophils Absolute Auto 0.1 X10*3/uL (0.0-0.2); Basophils Percent Auto 0.6 % (0-2); Eosinophils Absolute Auto 0.1 X10*3/uL (0.0-0.4); Eosinophils Percent Auto 1.3 % (0-4); Hematocrit 34.9 % (37.0-47.0); Hemoglobin 11.5 g/dl (12.0-16.0); Imm Gran Abs Auto 0.03 X10*3/uL (0.00-0.03); Imm Gran Pct Auto 0.3 % (0.0-0.4); Lymphocytes Absolute Auto 2.7 X10*3/uL (1.2-4.9); Lymphocytes Percent Auto 30.2 % (20-40); MANUAL DIFF FLAG NO; Mean Corpuscular Hemoglobin 26.4 pg (27.0-33.0); Mean Corpuscular Volume 80.2 fL (80.0-98.0); Mean Platelet Volume 8.9 fL (9.4-12.3); Monocytes Absolute Auto 0.6 X10*3/uL (0.1-1.2); Monocytes Percent Auto 7.1 % (2-11); Neutrophils Absolute Auto 5.3 x10*3/uL (2.0-8.3); Neutrophils Percent Auto 60.5 % (45-73); Platelet Count 350 X10*3/uL (160-400); Red Blood Count 4.35 X10*6/uL (4.20-5.50); Red Cell Distribution Width 14.6 % (11.0-16.0); White Blood Count 8.8 X10*3/uL (4.8-10.8)
[2023-10-12 21:53] LABS: Alanine Aminotransferase 15 U/L (0-31); Albumin Level 4.3 g/dL (3.5-5.0); Alkaline Phosphatase 101 U/L (39-117); Anion Gap 12 (12-20); Aspartate Amino Transferase 19 U/L (5-31); Bilirubin Total 0.3 mg/dL (0.0-1.0); Blood Urea Nitrogen 9 mg/dL (9-16); Calcium 9.1 mg/dL (8.4-10.2); Carbon Dioxide 23 mmol/L (22-29); Chloride 109 mmol/L (96-108); Creatinine Clr Calc Pharmacy 135.5; Estimated Glomerular Filt Rate > 60; Glucose Random 90 mg/dL (60-115); Potassium 3.5 mmol/L (3.3-5.1); Sodium 140 mmol/L (135-145); Total Protein 6.8 g/dL (6.5-8.0)
[2023-10-12 22:16] VITALS: BP 114/73; PULSE 80; RESP 14; TEMP 37; O2SAT 97
--- NOTE | 2023-10-12 23:07 | ED_ITS ---
HPI - General Adult General Chief complaint: Vaginal Bleeding Stated complaint: heavy vaginal bleeding Time Seen by Provider: 10/12/23 22:52 History of Present Illness HPI narrative: Patient is a 43-year-old female who says that she has a history of problems with heavy menses. She is currently menstruating. This cycle began 4 days ago on . She says that her bleeding has been quite heavy and she has been passing a lot of clots. She went to work today and she felt that she was passing a lot of clots and going through a lot of pads and so she came to the emergency room after leaving work. No fever, sweats, chills. No syncope. Related Data Home Medications ?Medication ?Instructions ?Recorded ?Confirmed cholecalciferol (vitamin D3) 25 25 mcg PO DAILY 10/22/20 10/22/20 mcg (1,000 unit) capsule (Vitamin D3) doxepin 50 mg capsule 50 mg PO DAILY 10/22/20 10/22/20 ferrous sulfate 324 mg (65 mg 324 mg PO DAILY 10/22/20 10/22/20 iron) tablet,delayed release lamotrigine 150 mg tablet 150 mg PO DAILY 10/22/20 10/22/20 multivitamin cap 10/22/20 olanzapine 20 mg tablet (Zyprexa) 20 mg PO DAILY 10/22/20 10/22/20 ondansetron 4 mg disintegrating 4 mg PO Q6H PRN Nausea And Vomiting 10/22/20 10/22/20 tablet pantoprazole 40 mg tablet,delayed 40 mg PO DAILY 10/22/20 10/22/20 release verapamil 40 mg tablet 40 mg PO DAILY 10/22/20 10/22/20 Previous Rx's ?Medication ?Instructions ?Recorded sulfamethoxazole 800 1 tab PO BID #14 tabs 10/22/20 mg-trimethoprim 160 mg tablet (Bactrim DS) nitrofurantoin 100 mg PO Q12H 7 days #14 caps 03/11/21 monohydrate/macrocrystals 100 mg capsule (Macrobid) tranexamic acid 650 mg tablet 650 mg PO BID 5 days #10 tabs 03/11/21 ferrous sulfate 325 mg (65 mg 325 mg PO TID 2 months #180 tabs 04/28/21 iron) tablet ondansetron 4 mg disintegrating 4 mg PO Q6-8H PRN nausea and 10/24/21 tablet vomiting #14 tabs oxycodone 5 mg tablet 5 mg PO Q4H PRN pain #14 tabs 04/28/21 morphine 15 mg immediate release 15 mg PO Q6H PRN pain 3 days #8 05/15/21 tablet tabs nitrofurantoin 100 mg PO BID 7 days #14 caps 05/15/21 monohydrate/macrocrystals 100 mg capsule (Macrobid) ondansetron 4 mg disintegrating 4 mg PO Q8H PRN nausea and 05/15/21 tablet vomiting #20 tabs pantoprazole 40 mg tablet,delayed 40 mg PO DAILY #30 tabs 05/28/21 release (Protonix) meclizine 25 mg tablet 25 mg PO BID PRN dizziness #14 tabs 07/27/22 nitrofurantoin 100 mg PO BID 5 days #10 caps 07/27/22 monohydrate/macrocrystals 100 mg capsule (Macrobid) lorazepam 1 mg tablet (Ativan) 1 mg PO BEDTIME PRN dizziness or 09/03/22 vertigo #7 tabs meclizine 25 mg tablet 25 mg PO TID PRN dizziness #20 tabs 09/03/22 cefuroxime axetil 500 mg tablet 500 mg PO Q12H 7 days #14 tabs 05/31/23 nitrofurantoin 100 mg PO Q12H 5 days #10 caps 09/02/23 monohydrate/macrocrystals 100 mg capsule (Macrobid) tranexamic acid 650 mg tablet 1,300 mg (2 x 650 mg) PO TID 5 10/12/23 days #30 tabs Allergies Allergy/AdvReac Type Severity Reaction Status Date / Time Penicillins Allergy Mild HIVES Verified 10/12/23 21:21 naproxen [NAPROXEN] Allergy Unknown BLEEDING Verified 10/12/23 21:21 penicillin V Allergy Unknown Hives Verified 10/12/23 21:21 Review of Systems 2 Review of Systems: Yes all other systems are reviewed and are negative PMFSH Past Medical History Medical History PTSD (post-traumatic stress disorder) Bipolar 1 disorder Anxiety delivery delivered Surgical History Gastric bypass status for obesity Tubal ligation status Social History Social History Alcohol intake: current Alcohol intake frequency: holidays/special occasions only Patient Tobacco Use Status: Never used Tobacco Substance Use Type: Marijuana Advance Directives: No Advance Directives Information Provided: No Physical Exam ED Vital Signs: Vital Signs - 24 hr 10/12/23 21:18 10/12/23 22:16 Temperature 98.0 F 98.6 F Pulse Rate 82 80 Respiratory Rate 14 14 Blood Pressure 120/65 114/73 Pulse Oximetry 96 97 Oxygen Delivery Method Room Air Room Air BMI result Body Mass Index 40.2 Const Other: The patient is awake, alert, pleasant, cooperative. She looks mildly pale but not in acute distress. HENMT Other: Face is symmetrical. Mucous membranes moist. Eyes Other: Pupils are round equal, conjunctivae clear Neck Other: No JVD Resp Effort & Inspection: normal respiratory effort Auscultation: clear to auscultation bilaterally Cardio Rate: regular rate Rhythm: regular rhythm Heart sounds: S1 normal heart sound present and S2 normal heart sound present GI Other: Abdomen is soft and not markedly tender Skin Other: Skin is pale and dry Neuro Other: Awake, alert, oriented, appropriate. Normal mental status. Grossly neurologically intact. Extrem Other: No peripheral edema Medications Administered Discontinued Medications Generic Name Dose Route Start Last Admin Trade Name Freq PRN Reason Stop Dose Admin Ketorolac Tromethamine 30 mg 10/12/23 23:05 10/12/23 23:14 Ketorolac Tromethamine 30 Mg/Ml Vial IM 10/12/23 23:06 30 mg ONCE ONE Administration Medical Decision Making Medical Decision Making [facility] Narrative: The patient is a 43-year-old female who reports a history of heavy menses in the past. She presents on day 5 of her current menstrual cycle with complaining of very heavy bleeding. Her test is negative. Her hemoglobin is 11.5. This is similar to her most recent previous hemoglobin a month and a half ago. The patient does not seem to have life-threatening bleeding. She will be given an injection of ketorolac 30 mg IM and she will be prescribed oral TXA. She says that she sees a nurse structural iron worker at the [facility], Brenda Sanchez. She should follow up soon. Return if worse. Lab Data 10/12/23 21:32 10/12/23 21:32 Labs: Lab Results 10/12/23 Range/Units 21:32 WBC 8.8 (4.8-10.8) X10*3/uL RBC 4.35 (4.20-5.50) X10*6/uL Hgb 11.5 L (12.0-16.0) g/dl Hct 34.9 L (37.0-47.0) % MCV 80.2 (80.0-98.0) fL MCH 26.4 L (27.0-33.0) pg MCHC 33.0 (31.0-35.0) g/dl RDW 14.6 (11.0-16.0) % Plt Count 350 (160-400) X10*3/uL MPV 8.9 L (9.4-12.3) fL Immature Gran % (Auto) 0.3 (0.0-0.4) % Neut % (Auto) 60.5 (45-73) % Lymph % (Auto) 30.2 (20-40) % [place] % (Auto) 7.1 (2-11) % Eos % (Auto) 1.3 (0-4) % Baso % (Auto) 0.6 (0-2) % Lymph # (Auto) 2.7 (1.2-4.9) X10*3/uL [place] # (Auto) 0.6 (0.1-1.2) X10*3/uL Eos # (Auto) 0.1 (0.0-0.4) X10*3/uL Baso # (Auto) 0.1 (0.0-0.2) X10*3/uL Abs Immat Gran (auto) 0.03 (0.00-0.03) X10*3/uL Absolute Neuts (auto) 5.3 (2.0-8.3) x10*3/uL Absolute Nucleated RBC 0.000 (0.0-0.012) X10*3/uL Nucleated RBC % (auto) 0.0 (0.0-0.2) /100WBC Sodium 140 (135-145) mmol/L Potassium 3.5 (3.3-5.1) mmol/L Chloride 109 H (96-108) mmol/L Carbon Dioxide 23 (22-29) mmol/L Anion Gap 12 (12-20) BUN 9 (9-16) mg/dL Creatinine 0.72 (0.5-1.4) mg/dL Estim Creat Clear Calc 135.5 Estimated GFR > 60 Random Glucose 90 (60-115) mg/dL Calcium 9.1 (8.4-10.2) mg/dL Total Bilirubin 0.3 (0.0-1.0) mg/dL AST 19 (5-31) U/L ALT 15 (0-31) U/L Alkaline Phosphatase 101 (39-117) U/L Total Protein 6.8 (6.5-8.0) g/dL Albumin 4.3 (3.5-5.0) g/dL Beta HCG, Quant < 2 mIU/mL Discharge Plan Discharge Clinical Impression: Heavy menstrual bleeding Patient Disposition: Home, Self-Care Instructions: Menorrhagia (ED) Additional Instructions: You received a shot of a medication called ketorolac (also known as Toradol) that can be helpful for heavy bleeding. Additionally I have sent a prescription for medication called tranexamic acid to the [facility] on [address] in [place]. You may take this medication up to 3 times a day. This medication is supposed to help with heavy menstrual bleeding as well. Please contact your regular automated access systems technician provider for additional advice and follow up. Return to the emergency room if significantly worse. Prescriptions: New tranexamic acid 650 mg tablet 1,300 mg PO TID 5 Days Qty: 30 0RF No Action lamotrigine 150 mg Tablet 150 mg PO DAILY doxepin 50 mg Capsule 50 mg PO DAILY verapamil 40 mg Tablet 40 mg PO DAILY pantoprazole 40 mg Tablet,Delayed Release (Dr/Ec) 40 mg PO DAILY ondansetron 4 mg Tablet,Disintegrating 4 mg PO Q6H PRN (Reason: Nausea And Vomiting) multivitamin Capsule olanzapine [Zyprexa] 20 mg Tablet 20 mg PO DAILY cholecalciferol (vitamin D3) [Vitamin D3] 25 mcg (1,000 unit) Capsule 25 mcg PO DAILY ferrous sulfate 324 mg (65 mg iron) Tablet,Delayed Release (Dr/Ec) 324 mg PO DAILY sulfamethoxazole-trimethoprim [Bactrim DS] 800-160 mg tablet 1 tab PO BID Qty: 14 0RF nitrofurantoin monohyd/m-cryst [Macrobid] 100 mg capsule 100 mg PO Q12H 7 Days Qty: 14 0RF Rx Instructions: must administer with a meal/food tranexamic acid 650 mg tablet 650 mg PO BID 5 Days Qty: 10 0RF ondansetron 4 mg tablet,disintegrating 4 mg PO Q6-8H PRN (Reason: nausea and vomiting) Qty: 14 0RF oxycodone 5 mg tablet 5 mg PO Q4H PRN (Reason: pain) Qty: 14 0RF Rx Instructions: Patient may request partial fill ferrous sulfate 325 mg (65 mg iron) tablet 325 mg PO TID 60 Days Qty: 180 0RF morphine 15 mg tablet 15 mg PO Q6H PRN (Reason: pain) 3 Days Qty: 8 0RF ondansetron 4 mg tablet,disintegrating 4 mg PO Q8H PRN (Reason: nausea and vomiting) Qty: 20 0RF nitrofurantoin monohyd/m-cryst [Macrobid] 100 mg capsule 100 mg PO BID 7 Days Qty: 14 0RF Rx Instructions: must administer with a meal/food pantoprazole [Protonix] 40 mg tablet,delayed release (DR/EC) 40 mg PO DAILY Qty: 30 0RF meclizine 25 mg tablet 25 mg PO BID PRN (Reason: dizziness) Qty: 14 0RF nitrofurantoin monohyd/m-cryst [Macrobid] 100 mg capsule 100 mg PO BID 5 Days Qty: 10 0RF Rx Instructions: must administer with a meal/food meclizine 25 mg tablet 25 mg PO TID PRN (Reason: dizziness) Qty: 20 0RF lorazepam [Ativan] 1 mg tablet 1 mg PO BEDTIME PRN (Reason: dizziness or vertigo) Qty: 7 0RF nitrofurantoin monohyd/m-cryst [Macrobid] 100 mg capsule 100 mg PO Q12H 5 Days Qty: 10 0RF Rx Instructions: must administer with a meal/food cefuroxime axetil 500 mg tablet 500 mg PO Q12H 7 Days Qty: 14 0RF Referrals: [facility] [Provider Group] (heavy menstrual bleeding) Print Language: Wolof
[2023-10-12 23:14] LABS: HCG Quantitative < 2 mIU/mL
[2023-10-12] MEDS: Ketorolac Tromethamine 30 MG/ML VIAL IM (23:14)
[2023-10-12 23:23] VITALS: BP 114/73; PULSE 82; RESP 16; TEMP 37; O2SAT 97
== END 2023-10-12 23:24 | disposition home or self-care (01) ==
PROVIDERS: Emergency Provider Emergency Medicine; PCP Internal Medicine
DX: N92.0 Excessive and frequent menstruation with regular cycle (principal)
CPT/HCPCS: 36415; 80053; 84702; 85025; 96372; 99283; 99284; J1885

== ENCOUNTER 2023-10-26 17:50 | Outpatient (REF) | payer MEDICARE, MEDICAID, SELFPAY ==
[2023-10-27 06:48] LABS: CT PCR NOT DETECTED (Not Detect.); NG PCR NOT DETECTED (Not Detect.)
== END 2023-10-26 17:51 | disposition home or self-care (01) ==
LOC: HO.HHCLNP 17:50
PROVIDERS: Visit Provider Advanced Practice Midwife
DX: R82.90 Unspecified abnormal findings in urine (principal); Z20.2 Contact with and (suspected) exposure to infections with a predominantly sexual mode of transmission
CPT/HCPCS: 0353U; 87086; 87088; 87186

== ENCOUNTER 2023-10-30 12:52 | Outpatient (REF) | payer MEDICARE, MEDICAID, SELFPAY ==
--- NOTE | ~2023-10-30 | US_ITS ---
EXAMINATION: US PELVIS CLINICAL INFORMATION: Hiren. History of fibroids post myomectomy COMPARISON: Previous pelvic ultrasound June 2023 TECHNIQUE: Ultrasound of the pelvis is performed using both transabdominal and transvaginal transducers along with Doppler. Transvaginal imaging is performed due to inadequate visualization transabdominally. FINDINGS: The uterus is anteverted and measures 11 x 5.7 x 6.7 cm in dimension. There is question of a 1.6 x 1.3 x 1.8 cm isoechoic lesion in the anterior lower uterine segment adjacent to the scar. No other focal uterine lesion. Endometrial thickness is normal measuring 1 cm. The right ovary is normal and measures 2.6 x 1.8 x 1.8 cm. The left ovary is not seen. There is a 1.2 cm simple left adnexal cyst. There is no fluid in the pelvis. US/US pelvic and transvaginal IMPRESSION: Question small fibroid in the anterior lower uterine segment adjacent to the scar. Normal-appearing right ovary. Left ovary not seen. New 1.2 cm simple left adnexal cyst.
== END 2023-10-30 12:53 | disposition home or self-care (01) ==
LOC: HO.HMGCX 12:52
PROVIDERS: PCP Internal Medicine; Visit Provider Advanced Practice Midwife
DX: N92.0 Excessive and frequent menstruation with regular cycle (principal)
CPT/HCPCS: 76830; 76856

== ENCOUNTER 2023-12-30 18:38 | Emergency (ER) | payer MEDICARE, MEDICAID, SELFPAY ==
[2023-12-30 18:47] VITALS: BP 119/71; PULSE 81; RESP 17; TEMP 36.8; O2SAT 97; BMI 38.6
--- NOTE | 2023-12-30 18:48 | ED.FEMALEGU ---
HPI - Female Genitourinary General Chief complaint: Urogenital-Female Stated complaint: ?uti Time Seen by Provider: 12/30/23 19:20 Source: patient Mode of arrival: ambulatory Limitations: no limitations History of Present Illness HPI Narrative: Patient is a 43-year-old female who presents to the emergency department reporting that with dysuria for a few days without hematuria, abdominal pain, back or flank pain, no fevers or chills. She admits to 2 episodes of vomiting after eating corn beef hash yesterday, she states this typically happens when she eats fried or fatty foods, she has a history of a cholecystectomy 1 year ago, gastric sleeve in 2014 and gastric bypass 2 years ago through [facility] with Dr. Liang. No nausea or vomiting today. She is tolerating oral intake. She denies fevers or chills, pelvic pain, abnormal vaginal discharge, constipation, diarrhea, hematochezia, melena. She admits to a history of urinary tract infection a few months ago with resolution of symptoms after receiving antibiotics. Related Data Home Medications ?Medication ?Instructions ?Recorded ?Confirmed cholecalciferol (vitamin D3) 25 25 mcg PO DAILY 10/22/20 10/22/20 mcg (1,000 unit) capsule (Vitamin D3) doxepin 50 mg capsule 50 mg PO DAILY 10/22/20 10/22/20 ferrous sulfate 324 mg (65 mg 324 mg PO DAILY 10/22/20 10/22/20 iron) tablet,delayed release lamotrigine 150 mg tablet 150 mg PO DAILY 10/22/20 10/22/20 multivitamin cap 10/22/20 olanzapine 20 mg tablet (Zyprexa) 20 mg PO DAILY 10/22/20 10/22/20 ondansetron 4 mg disintegrating 4 mg PO Q6H PRN Nausea And Vomiting 10/22/20 10/22/20 tablet pantoprazole 40 mg tablet,delayed 40 mg PO DAILY 10/22/20 10/22/20 release verapamil 40 mg tablet 40 mg PO DAILY 10/22/20 10/22/20 Previous Rx's ?Medication ?Instructions ?Recorded sulfamethoxazole 800 1 tab PO BID #14 tabs 10/22/20 mg-trimethoprim 160 mg tablet (Bactrim DS) nitrofurantoin 100 mg PO Q12H 7 days #14 caps 03/11/21 monohydrate/macrocrystals 100 mg capsule (Macrobid) tranexamic acid 650 mg tablet 650 mg PO BID 5 days #10 tabs 03/11/21 ferrous sulfate 325 mg (65 mg 325 mg PO TID 2 months #180 tabs 04/28/21 iron) tablet ondansetron 4 mg disintegrating 4 mg PO Q6-8H PRN nausea and 04/28/21 tablet vomiting #14 tabs oxycodone 5 mg tablet 5 mg PO Q4H PRN pain #14 tabs 04/28/21 morphine 15 mg immediate release 15 mg PO Q6H PRN pain 3 days #8 05/15/21 tablet tabs nitrofurantoin 100 mg PO BID 7 days #14 caps 05/15/21 monohydrate/macrocrystals 100 mg capsule (Macrobid) ondansetron 4 mg disintegrating 4 mg PO Q8H PRN nausea and 05/15/21 tablet vomiting #20 tabs pantoprazole 40 mg tablet,delayed 40 mg PO DAILY #30 tabs 05/28/21 release (Protonix) meclizine 25 mg tablet 25 mg PO BID PRN dizziness #14 tabs 07/27/22 nitrofurantoin 100 mg PO BID 5 days #10 caps 07/27/22 monohydrate/macrocrystals 100 mg capsule (Macrobid) lorazepam 1 mg tablet (Ativan) 1 mg PO BEDTIME PRN dizziness or 09/03/22 vertigo #7 tabs meclizine 25 mg tablet 25 mg PO TID PRN dizziness #20 tabs 09/03/22 cefuroxime axetil 500 mg tablet 500 mg PO Q12H 7 days #14 tabs 05/31/23 nitrofurantoin 100 mg PO Q12H 5 days #10 caps 09/02/23 monohydrate/macrocrystals 100 mg capsule (Macrobid) tranexamic acid 650 mg tablet 1,300 mg (2 x 650 mg) PO TID 5 10/12/23 days #30 tabs cefuroxime axetil 500 mg tablet 500 mg PO BID #13 tabs 12/30/23 Allergies Allergy/AdvReac Type Severity Reaction Status Date / Time Penicillins Allergy Mild HIVES Verified 12/30/23 18:51 naproxen [NAPROXEN] Allergy Unknown BLEEDING Verified 12/30/23 18:51 penicillin V Allergy Unknown Hives Verified 12/30/23 18:51 Review of Systems Review of Systems: Yes all other systems are reviewed and are negative [facility] Past Medical History Attestation statement: The following information was validated with the patient. Source: old records reviewed Medical History PTSD (post-traumatic stress disorder) Bipolar 1 disorder Anxiety delivery delivered Surgical History Gastric bypass status for obesity Tubal ligation status Social History Social History Alcohol intake: current Alcohol intake frequency: holidays/special occasions only Patient Tobacco Use Status: Never used Tobacco Substance Use Type: Marijuana Advance Directives: No Advance Directives Information Provided: No Do you have a plan to hurt others: No Plan Physical Exam Vital Signs: Vital Signs: Last Vital Signs Temp 98.2 F 12/30/23 20:57 Pulse 70 12/30/23 20:57 Resp 20 12/30/23 20:57 BP 120/80 12/30/23 20:57 Pulse Ox 99 12/30/23 20:57 O2 Del Method Room Air 12/30/23 20:57 BMI result Body Mass Index 38.6 Appearance: Alert.?Oriented to person, place and time. No acute distress.?Normal affect. Eyes: Pupils equal, round and reactive to light.? ENT: Pharynx normal.?? Neck: Normal inspection.? Neck supple.?? CVS: Heart sounds normal. Normal heart rate and rhythm.? Pulses normal.?? Respiratory: No respiratory distress.? Lung sounds clear to auscultation bilaterally?? Abdomen: Soft and non-tender. Normoactive bowel sounds. No CVA tenderness Skin: Skin warm and dry.? Normal skin color.?? Extremities: No lower extremity edema.? Neuro: Moves all extremities spontaneously. Sensation intact bilaterally. Ambulates with normal steady gait. Course Course Course Narrative: This is a Rapid Medical Examination (RME) performed by Che Ferrera PA-C in triage. Full HPI, ROS, assessment and treatment plan per primary provider in the Main ED. 43 yo female hx of PTSD, bipolar disorder, and anxiety here for eval of dysuria x today. reports recent UTI tx with antibiotics. she is sexually active with her fiance. denies concerns for sti. admits to assoc nausea and vomiting after eating which began yesterday. hx of tubal ligation. denies fever/chills, flank pain, abd pain. abd soft, ND/NT. Plan: labs, ua, u preg Medical Decision Making Medical Decision Making MDM Narrative: Patient is a 43-year-old female who presents emergency department for evaluation. She endorses 2 episodes of postprandial vomiting yesterday without such occurrence today, no nausea or associated abdominal pain, she is tolerating oral intake without difficulty. Advised against consumption of fried and fatty foods given her history of bariatric surgery and cholecystectomy. She has no right upper quadrant or epigastric tenderness upon palpation, I suspect this was unlikely due to CBD stone, gastritis. She has been experiencing dysuria with no additional symptoms, lower abdominal examination is benign, no CVA tenderness. CBC is without leukocytosis anemia or thrombocytopenia. Electrolytes overall unremarkable, no TIAN, LFTs and lipase within normal range. Urinalysis with 1+ leukocyte esterase and urine bacteria, on review of medical records she had a urinary tract infection in August and September of 2023 rolling E coli sensitive to ceftriaxone. Patient received 1st dose of cefuroxime in the emergency department, will send remainder prescription to pharmacy. Advised outpatient follow-up primary care provider, strict return precautions. All questions answered. Stable for discharge Differential Diagnosis Differential Diagnoses: The differential diagnosis associated with the presentation includes (See narrative above) Admission/Observation Consideration of admission/observation: Escalation of care including admission/observation considered (See narrative above) Lab Data [facility] Lab Attestation statement: I reviewed the patient's lab results. (See narrative above) 12/30/23 19:14 12/30/23 19:14 Labs: Lab Results 12/30/23 12/30/23 Range/Units 19:14 19:17 WBC 9.2 (4.8-10.8) X10*3/uL RBC 4.59 (4.20-5.50) X10*6/uL Hgb 12.9 (12.0-16.0) g/dl Hct 37.2 (37.0-47.0) % MCV 81.0 (80.0-98.0) fL MCH 28.1 (27.0-33.0) pg MCHC 34.7 (31.0-35.0) g/dl RDW 13.2 (11.0-16.0) % Plt Count 347 (160-400) X10*3/uL MPV 9.0 L (9.4-12.3) fL Immature Gran % (Auto) 0.2 (0.0-0.4) % Neut % (Auto) 65.2 (45-73) % Lymph % (Auto) 27.0 (20-40) % [place] % (Auto) 6.3 (2-11) % Eos % (Auto) 0.8 (0-4) % Baso % (Auto) 0.5 (0-2) % Lymph # (Auto) 2.5 (1.2-4.9) X10*3/uL [place] # (Auto) 0.6 (0.1-1.2) X10*3/uL Eos # (Auto) 0.1 (0.0-0.4) X10*3/uL Baso # (Auto) 0.1 (0.0-0.2) X10*3/uL Abs Immat Gran (auto) 0.02 (0.00-0.03) X10*3/uL Absolute Neuts (auto) 6.0 (2.0-8.3) x10*3/uL Absolute Nucleated RBC 0.000 (0.0-0.012) X10*3/uL Nucleated RBC % (auto) 0.0 (0.0-0.2) /100WBC Sodium 139 (135-145) mmol/L Potassium 3.8 (3.3-5.1) mmol/L Chloride 109 H (96-108) mmol/L Carbon Dioxide 21 L (22-29) mmol/L Anion Gap 13 (12-20) BUN 7 L (9-16) mg/dL Creatinine 0.68 (0.5-1.4) mg/dL Estim Creat Clear Calc 140.4 Estimated GFR > 60 Random Glucose 103 (60-115) mg/dL Calcium 9.0 (8.4-10.2) mg/dL Magnesium 2.1 (1.6-2.6) mg/dL Total Bilirubin 0.3 (0.0-1.0) mg/dL AST 16 (5-31) U/L ALT 12 (0-31) U/L Alkaline Phosphatase 94 (39-117) U/L Total Protein 6.8 (6.5-8.0) g/dL Albumin 4.2 (3.5-5.0) g/dL Lipase 21 (8-78) U/L Urine Color Yellow Urine Appearance Cloudy Urine pH 5.5 (5.0-9.0) Ur Specific [place] 1.020 (1.005-1.025) Urine Protein Negative (Neg-Trace) mg/dL Urine Glucose (UA) Negative (Negative) mg/dL Urine Ketones Trace (Negative) mg/dL Urine Blood Negative (Negative) Urine Nitrite Negative (Negative) Ur Leukocyte Esterase Small (1+) H (Negative) Urine RBC 0-2 (0-2) /HPF Urine WBC 6-10 (0-5) /HPF Ur Squamous Epith Cells 3-5 (0-2) /HPF Urine Bacteria 1+ (None Seen) Hyaline Casts 0-2 (0-2) /LPF Urine Test NEGATIVE (NEGATIVE) External Record Review External record reviewed: Outpatient record Prescription Management I considered prescription management with: Antibiotic Discharge Plan Discharge Clinical Impression: Urinary tract infection Patient Disposition: Home, Self-Care Instructions: Urinary Tract Infection in Women (ED) Prescriptions: New cefuroxime axetil 500 mg tablet 500 mg PO BID Qty: 13 0RF No Action lamotrigine 150 mg Tablet 150 mg PO DAILY doxepin 50 mg Capsule 50 mg PO DAILY verapamil 40 mg Tablet 40 mg PO DAILY pantoprazole 40 mg Tablet,Delayed Release (Dr/Ec) 40 mg PO DAILY ondansetron 4 mg Tablet,Disintegrating 4 mg PO Q6H PRN (Reason: Nausea And Vomiting) multivitamin Capsule olanzapine [Zyprexa] 20 mg Tablet 20 mg PO DAILY cholecalciferol (vitamin D3) [Vitamin D3] 25 mcg (1,000 unit) Capsule 25 mcg PO DAILY ferrous sulfate 324 mg (65 mg iron) Tablet,Delayed Release (Dr/Ec) 324 mg PO DAILY sulfamethoxazole-trimethoprim [Bactrim DS] 800-160 mg tablet 1 tab PO BID Qty: 14 0RF nitrofurantoin monohyd/m-cryst [Macrobid] 100 mg capsule 100 mg PO Q12H 7 Days Qty: 14 0RF Rx Instructions: must administer with a meal/food tranexamic acid 650 mg tablet 650 mg PO BID 5 Days Qty: 10 0RF ondansetron 4 mg tablet,disintegrating 4 mg PO Q6-8H PRN (Reason: nausea and vomiting) Qty: 14 0RF oxycodone 5 mg tablet 5 mg PO Q4H PRN (Reason: pain) Qty: 14 0RF Rx Instructions: Patient may request partial fill ferrous sulfate 325 mg (65 mg iron) tablet 325 mg PO TID 60 Days Qty: 180 0RF morphine 15 mg tablet 15 mg PO Q6H PRN (Reason: pain) 3 Days Qty: 8 0RF ondansetron 4 mg tablet,disintegrating 4 mg PO Q8H PRN (Reason: nausea and vomiting) Qty: 20 0RF nitrofurantoin monohyd/m-cryst [Macrobid] 100 mg capsule 100 mg PO BID 7 Days Qty: 14 0RF Rx Instructions: must administer with a meal/food pantoprazole [Protonix] 40 mg tablet,delayed release (DR/EC) 40 mg PO DAILY Qty: 30 0RF meclizine 25 mg tablet 25 mg PO BID PRN (Reason: dizziness) Qty: 14 0RF nitrofurantoin monohyd/m-cryst [Macrobid] 100 mg capsule 100 mg PO BID 5 Days Qty: 10 0RF Rx Instructions: must administer with a meal/food meclizine 25 mg tablet 25 mg PO TID PRN (Reason: dizziness) Qty: 20 0RF lorazepam [Ativan] 1 mg tablet 1 mg PO BEDTIME PRN (Reason: dizziness or vertigo) Qty: 7 0RF nitrofurantoin monohyd/m-cryst [Macrobid] 100 mg capsule 100 mg PO Q12H 5 Days Qty: 10 0RF Rx Instructions: must administer with a meal/food tranexamic acid 650 mg tablet 1,300 mg PO TID 5 Days Qty: 30 0RF cefuroxime axetil 500 mg tablet 500 mg PO Q12H 7 Days Qty: 14 0RF Print Language: Kyrgyz
[2023-12-30 19:22] LABS: MANUAL DIFF FLAG NO
[2023-12-30 19:27] LABS: Basophils Absolute Auto 0.1 X10*3/uL (0.0-0.2); Basophils Percent Auto 0.5 % (0-2); Eosinophils Absolute Auto 0.1 X10*3/uL (0.0-0.4); Eosinophils Percent Auto 0.8 % (0-4); Hematocrit 37.2 % (37.0-47.0); Hemoglobin 12.9 g/dl (12.0-16.0); Imm Gran Abs Auto 0.02 X10*3/uL (0.00-0.03); Imm Gran Pct Auto 0.2 % (0.0-0.4); Lymphocytes Absolute Auto 2.5 X10*3/uL (1.2-4.9); Mean Corpuscular HGB Conc 34.7 g/dl (31.0-35.0); Mean Corpuscular Hemoglobin 28.1 pg (27.0-33.0); Monocytes Absolute Auto 0.6 X10*3/uL (0.1-1.2); Monocytes Percent Auto 6.3 % (2-11); Neutrophils Percent Auto 65.2 % (45-73); Platelet Count 347 X10*3/uL (160-400); Red Blood Count 4.59 X10*6/uL (4.20-5.50); Red Cell Distribution Width 13.2 % (11.0-16.0); White Blood Count 9.2 X10*3/uL (4.8-10.8)
[2023-12-30 19:29] LABS: Appearance Urine Cloudy; Color Urine Yellow; Glucose Urine UA Negative (Negative); Leukocyte Esterase Urine Small (1+) (Negative); Nitrite Urine Negative (Negative); PH 5.5 (5.0-9.0); UMIC TRIGGER UACC YES; Urine Blood Negative (Negative); Urine Ketones Trace mg/dL (Negative); Urine Protein Negative (Neg-Trace)
[2023-12-30 19:31] LABS: UPreg QC Valid YES; Urine Pregnancy NEGATIVE (NEGATIVE)
[2023-12-30 19:41] LABS: Bacteria Urine 1+ (None Seen); Hyaline Casts Urine 0-2 /LPF (0-2); RBC Urine 0-2 /HPF (0-2); UACC Culture Trigger YES
[2023-12-30 19:43] LABS: Alanine Aminotransferase 12 U/L (0-31); Albumin Level 4.2 g/dL (3.5-5.0); Alkaline Phosphatase 94 U/L (39-117); Anion Gap 13 (12-20); Aspartate Amino Transferase 16 U/L (5-31); Bilirubin Total 0.3 mg/dL (0.0-1.0); Blood Urea Nitrogen 7 mg/dL (9-16); Carbon Dioxide 21 mmol/L (22-29); Chloride 109 mmol/L (96-108); Creatinine Clr Calc Pharmacy 140.4; Estimated Glomerular Filt Rate > 60; Glucose Random 103 mg/dL (60-115); Lipase 21 U/L (8-78); Magnesium 2.1 mg/dL (1.6-2.6); Potassium 3.8 mmol/L (3.3-5.1); Sodium 139 mmol/L (135-145); Total Protein 6.8 g/dL (6.5-8.0)
[2023-12-30 20:57] VITALS: BP 120/80; PULSE 70; RESP 20; TEMP 36.8; O2SAT 99
[2023-12-30] MEDS: cefuroxime axetiL 500 MG TABLET PO (21:15)
[2023-12-30 21:19] VITALS: BP 120/80; PULSE 70; RESP 20; TEMP 36.8; O2SAT 99
== END 2023-12-30 21:19 | disposition home or self-care (01) ==
PROVIDERS: Physician Assistant Medical; Emergency Provider Internal Medicine; PCP Internal Medicine
DX: N39.0 Urinary tract infection, site not specified (principal); R11.10 Vomiting, unspecified
CPT/HCPCS: 36415; 80053; 81001; 81025; 83690; 83735; 85025; 87086; 87088; 87186; 99283; 99284

== ENCOUNTER 2024-02-17 18:24 | Emergency (ER) | payer MEDICARE, MEDICAID, SELFPAY ==
[2024-02-17 18:32] VITALS: BP 126/77; PULSE 83; RESP 16; TEMP 37; O2SAT 98; BMI 37.1
--- NOTE | 2024-02-17 18:38 | ED_ITS ---
HPI - General Adult General Chief complaint: Wound/Laceration Stated complaint: abd rash Time Seen by Provider: 02/17/24 19:47 Source: patient, RN notes reviewed and old records reviewed Mode of arrival: ambulatory Limitations: no limitations History of Present Illness ED Provider: Terence HPI narrative: 43-year-old female presents for evaluation of a rash to her abdominal folds. Patient states that she has had issues with yeast infections to her abdominal skin folds since having a gastric sleeve about 8 years ago. She reports that she was told she needs to ?lose 20 more lb before I can have a panniculectomy. Patient states that she has been on and off econazole nitrate as recently as today and does not feel it is helping this time. She denies any fevers, chills pain She describes the rash as itching and burning She reports previously trying nystatin without any improvement Related Data Home Medications ?Medication ?Instructions ?Recorded ?Confirmed cholecalciferol (vitamin D3) 25 25 mcg PO DAILY 10/22/20 10/22/20 mcg (1,000 unit) capsule (Vitamin D3) doxepin 50 mg capsule 50 mg PO DAILY 10/22/20 10/22/20 ferrous sulfate 324 mg (65 mg 324 mg PO DAILY 10/22/20 10/22/20 iron) tablet,delayed release lamotrigine 150 mg tablet 150 mg PO DAILY 10/22/20 10/22/20 multivitamin cap 10/22/20 olanzapine 20 mg tablet (Zyprexa) 20 mg PO DAILY 10/22/20 10/22/20 ondansetron 4 mg disintegrating 4 mg PO Q6H PRN Nausea And Vomiting 10/22/20 10/22/20 tablet pantoprazole 40 mg tablet,delayed 40 mg PO DAILY 10/22/20 10/22/20 release verapamil 40 mg tablet 40 mg PO DAILY 10/22/20 10/22/20 Previous Rx's ?Medication ?Instructions ?Recorded sulfamethoxazole 800 1 tab PO BID #14 tabs 10/22/20 mg-trimethoprim 160 mg tablet (Bactrim DS) nitrofurantoin 100 mg PO Q12H 7 days #14 caps 03/11/21 monohydrate/macrocrystals 100 mg capsule (Macrobid) tranexamic acid 650 mg tablet 650 mg PO BID 5 days #10 tabs 03/11/21 ferrous sulfate 325 mg (65 mg 325 mg PO TID 2 months #180 tabs 04/28/21 iron) tablet ondansetron 4 mg disintegrating 4 mg PO Q6-8H PRN nausea and 04/28/21 tablet vomiting #14 tabs oxycodone 5 mg tablet 5 mg PO Q4H PRN pain #14 tabs 04/28/21 morphine 15 mg immediate release 15 mg PO Q6H PRN pain 3 days #8 05/15/21 tablet tabs nitrofurantoin 100 mg PO BID 7 days #14 caps 05/15/21 monohydrate/macrocrystals 100 mg capsule (Macrobid) ondansetron 4 mg disintegrating 4 mg PO Q8H PRN nausea and 05/15/21 tablet vomiting #20 tabs pantoprazole 40 mg tablet,delayed 40 mg PO DAILY #30 tabs 05/28/21 release (Protonix) meclizine 25 mg tablet 25 mg PO BID PRN dizziness #14 tabs 07/27/22 nitrofurantoin 100 mg PO BID 5 days #10 caps 07/27/22 monohydrate/macrocrystals 100 mg capsule (Macrobid) lorazepam 1 mg tablet (Ativan) 1 mg PO BEDTIME PRN dizziness or 09/03/22 vertigo #7 tabs meclizine 25 mg tablet 25 mg PO TID PRN dizziness #20 tabs 09/03/22 cefuroxime axetil 500 mg tablet 500 mg PO Q12H 7 days #14 tabs 05/31/23 nitrofurantoin 100 mg PO Q12H 5 days #10 caps 09/02/23 monohydrate/macrocrystals 100 mg capsule (Macrobid) tranexamic acid 650 mg tablet 1,300 mg (2 x 650 mg) PO TID 5 10/12/23 days #30 tabs cefuroxime axetil 500 mg tablet 500 mg PO BID #13 tabs 12/30/23 clotrimazole-betamethasone 1 1 appl topical BID 1 week #45 grams 02/17/24 %-0.05 % topical cream Allergies Allergy/AdvReac Type Severity Reaction Status Date / Time Penicillins Allergy Mild HIVES Verified 02/17/24 18:35 naproxen [NAPROXEN] Allergy Unknown BLEEDING Verified 02/17/24 18:35 penicillin V Allergy Unknown Hives Verified 02/17/24 18:35 Review of Systems 2 Constitutional: Constitutional: Denies body ache(s), Denies chills and Denies fever(s) Eyes: Eyes: Denies blurry vision ENT: Denies vertigo and Denies dizziness Cardiovascular: Cardiovascular: Denies chest pain and Denies dyspnea Respiratory: Respiratory: Denies cough and Denies dyspnea Gastrointestinal: Gastrointestinal: Denies abdominal pain, Denies nausea and Denies vomiting Musculoskeletal: Musculoskeletal: Denies back pain Integumentary/Breasts: Skin/Breast: Reports rash Neurologic: Denies vertigo and Denies dizziness [facility] Past Medical History Medical History PTSD (post-traumatic stress disorder) Bipolar 1 disorder Anxiety delivery delivered Surgical History Gastric bypass status for obesity Tubal ligation status Social History Social History Alcohol intake: current Alcohol intake frequency: holidays/special occasions only Patient Tobacco Use Status: Never used Tobacco Substance Use Type: Marijuana Advance Directives: No Advance Directives Information Provided: No Physical Exam ED Vital Signs: Vital Signs - 24 hr 02/17/24 18:32 02/17/24 20:06 02/17/24 20:15 Temperature 98.6 F 97.6 F 97.6 F Pulse Rate 83 66 66 Respiratory Rate 16 16 16 Blood Pressure 126/77 108/68 108/68 Pulse Oximetry 98 97 97 Oxygen Delivery Method Room Air Room Air Room Air BMI result Body Mass Index 37.1 Const General: healthy appearing, comfortable, no acute distress, alert and awake Nutritional Appearance: well nourished Orientation/consciousness: patient oriented x3 HENMT Head: Yes normocephalic and Yes atraumatic Eyes Eyelids: Yes eyelids normal Conjunctivae: conjunctivae normal Sclerae: sclerae normal Corneas: corneas normal Pupils: Equal, round and reactive pupils present EOM: EOMs intact bilaterally Neck Neck: Yes full ROM Resp Effort & Inspection: normal respiratory effort, able to speak in complete sentences and not labored Cardio Rate: regular rate Rhythm: regular rhythm GI Inspection: No distended Palpation (GI): Soft to palpation, not firm, nontender, no guarding and not rigid Skin Other: Patient has a diffuse erythematous rash to the skin folds of the lower abdomen/suprapubic region. There was no beefy red erythema or increased warmth, no purulence or edema. General skin exam: elasticity normal Neuro General: patient oriented x3 Cranial nerves: Yes Equal, round and reactive pupils present and Yes Bilaterally intact EOM present Cognition (Neuro): normal cognition Course Course Course Narrative: This is an RME done by TARA Gale: Additional HPI, ROS, PE not included below will be deferred to primary provider. 43-year-old female presents with rash below abdominal folds, not improving with cream. Ongoing for the past 3 days worsening. Medications Administered Discontinued Medications Generic Name Dose Route Start Last Admin Trade Name Freq PRN Reason Stop Dose Admin Fluconazole 150 mg 02/17/24 20:02 02/17/24 20:11 Fluconazole 150 Mg Tablet PO 02/17/24 20:03 150 mg ONCE ONE Administration Medical Decision Making Medical Decision Making [facility] Narrative: Patient's history exam is most consistent with a candidal infection, given that she has failed econazole nitrate, we will give 1 dose of Diflucan and treat with clotrimazole/betamethasone and she will follow up with her PCP. Differential Diagnosis Differential Diagnoses: The differential diagnosis associated with the presentation includes Tinea corporis Cellulitis Dermatitis Eczema Psoriasis Lab Data 02/17/24 19:09 02/17/24 19:09 Labs: Lab Results 02/17/24 Range/Units 19:09 WBC 10.1 (4.8-10.8) X10*3/uL RBC 4.45 (4.20-5.50) X10*6/uL Hgb 12.7 (12.0-16.0) g/dl Hct 36.5 L (37.0-47.0) % MCV 82.0 (80.0-98.0) fL MCH 28.5 (27.0-33.0) pg MCHC 34.8 (31.0-35.0) g/dl RDW 12.9 (11.0-16.0) % Plt Count 307 (160-400) X10*3/uL MPV 8.7 L (9.4-12.3) fL Immature Gran % (Auto) 0.3 (0.0-0.4) % Neut % (Auto) 69.3 (45-73) % Lymph % (Auto) 22.4 (20-40) % Deuel % (Auto) 6.6 (2-11) % Eos % (Auto) 0.9 (0-4) % Baso % (Auto) 0.5 (0-2) % Lymph # (Auto) 2.3 (1.2-4.9) X10*3/uL Deuel # (Auto) 0.7 (0.1-1.2) X10*3/uL Eos # (Auto) 0.1 (0.0-0.4) X10*3/uL Baso # (Auto) 0.1 (0.0-0.2) X10*3/uL Abs Immat Gran (auto) 0.03 (0.00-0.03) X10*3/uL Absolute Neuts (auto) 7.0 (2.0-8.3) x10*3/uL Absolute Nucleated RBC 0.000 (0.0-0.012) X10*3/uL Nucleated RBC % (auto) 0.0 (0.0-0.2) /100WBC Sodium 140 (135-145) mmol/L Potassium 4.0 (3.3-5.1) mmol/L Chloride 107 (96-108) mmol/L Carbon Dioxide 25 (22-29) mmol/L Anion Gap 12 (12-20) BUN 6 L (9-16) mg/dL Creatinine 0.68 (0.5-1.4) mg/dL Estim Creat Clear Calc 123.8 Estimated GFR > 60 Random Glucose 103 (60-115) mg/dL Calcium 8.8 (8.4-10.2) mg/dL Total Bilirubin 0.3 (0.0-1.0) mg/dL AST 16 (5-31) U/L ALT 16 (0-31) U/L Alkaline Phosphatase 101 (39-117) U/L Total Protein 6.4 L (6.5-8.0) g/dL Albumin 4.0 (3.5-5.0) g/dL Discharge Plan Discharge Clinical Impression: Rose infection Patient Disposition: Home, Self-Care Instructions: Yeast Infection (ED) Additional Instructions: You were given 1 dose of an anti fungal medication called Diflucan. Use clotrimazole with betamethasone ointment twice daily for 1 week Follow-up with your primary doctor Prescriptions: New clotrimazole-betamethasone 1-0.05 % cream 1 appl topical BID 7 Days Qty: 45 0RF No Action lamotrigine 150 mg Tablet 150 mg PO DAILY doxepin 50 mg Capsule 50 mg PO DAILY verapamil 40 mg Tablet 40 mg PO DAILY pantoprazole 40 mg Tablet,Delayed Release (Dr/Ec) 40 mg PO DAILY ondansetron 4 mg Tablet,Disintegrating 4 mg PO Q6H PRN (Reason: Nausea And Vomiting) multivitamin Capsule olanzapine [Zyprexa] 20 mg Tablet 20 mg PO DAILY cholecalciferol (vitamin D3) [Vitamin D3] 25 mcg (1,000 unit) Capsule 25 mcg PO DAILY ferrous sulfate 324 mg (65 mg iron) Tablet,Delayed Release (Dr/Ec) 324 mg PO DAILY sulfamethoxazole-trimethoprim [Bactrim DS] 800-160 mg tablet 1 tab PO BID Qty: 14 0RF nitrofurantoin monohyd/m-cryst [Macrobid] 100 mg capsule 100 mg PO Q12H 7 Days Qty: 14 0RF Rx Instructions: must administer with a meal/food tranexamic acid 650 mg tablet 650 mg PO BID 5 Days Qty: 10 0RF ondansetron 4 mg tablet,disintegrating 4 mg PO Q6-8H PRN (Reason: nausea and vomiting) Qty: 14 0RF oxycodone 5 mg tablet 5 mg PO Q4H PRN (Reason: pain) Qty: 14 0RF Rx Instructions: Patient may request partial fill ferrous sulfate 325 mg (65 mg iron) tablet 325 mg PO TID 60 Days Qty: 180 0RF morphine 15 mg tablet 15 mg PO Q6H PRN (Reason: pain) 3 Days Qty: 8 0RF ondansetron 4 mg tablet,disintegrating 4 mg PO Q8H PRN (Reason: nausea and vomiting) Qty: 20 0RF nitrofurantoin monohyd/m-cryst [Macrobid] 100 mg capsule 100 mg PO BID 7 Days Qty: 14 0RF Rx Instructions: must administer with a meal/food pantoprazole [Protonix] 40 mg tablet,delayed release (DR/EC) 40 mg PO DAILY Qty: 30 0RF meclizine 25 mg tablet 25 mg PO BID PRN (Reason: dizziness) Qty: 14 0RF nitrofurantoin monohyd/m-cryst [Macrobid] 100 mg capsule 100 mg PO BID 5 Days Qty: 10 0RF Rx Instructions: must administer with a meal/food meclizine 25 mg tablet 25 mg PO TID PRN (Reason: dizziness) Qty: 20 0RF lorazepam [Ativan] 1 mg tablet 1 mg PO BEDTIME PRN (Reason: dizziness or vertigo) Qty: 7 0RF nitrofurantoin monohyd/m-cryst [Macrobid] 100 mg capsule 100 mg PO Q12H 5 Days Qty: 10 0RF Rx Instructions: must administer with a meal/food tranexamic acid 650 mg tablet 1,300 mg PO TID 5 Days Qty: 30 0RF cefuroxime axetil 500 mg tablet 500 mg PO BID Qty: 13 0RF cefuroxime axetil 500 mg tablet 500 mg PO Q12H 7 Days Qty: 14 0RF Interventions: ED Discharge Assessment Last Done: 02/17/24 20:15 Discharge Date/Time: 02/17/24 20:19 Print Language: Tamazight
[2024-02-17 19:14] LABS: MANUAL DIFF FLAG NO
[2024-02-17 19:15] LABS: Basophils Absolute Auto 0.1 X10*3/uL (0.0-0.2); Basophils Percent Auto 0.5 % (0-2); Eosinophils Absolute Auto 0.1 X10*3/uL (0.0-0.4); Eosinophils Percent Auto 0.9 % (0-4); Hematocrit 36.5 % (37.0-47.0); Hemoglobin 12.7 g/dl (12.0-16.0); Imm Gran Abs Auto 0.03 X10*3/uL (0.00-0.03); Imm Gran Pct Auto 0.3 % (0.0-0.4); Lymphocytes Absolute Auto 2.3 X10*3/uL (1.2-4.9); Lymphocytes Percent Auto 22.4 % (20-40); Mean Corpuscular HGB Conc 34.8 g/dl (31.0-35.0); Mean Corpuscular Hemoglobin 28.5 pg (27.0-33.0); Mean Platelet Volume 8.7 fL (9.4-12.3); Monocytes Absolute Auto 0.7 X10*3/uL (0.1-1.2); Monocytes Percent Auto 6.6 % (2-11); Neutrophils Percent Auto 69.3 % (45-73); Platelet Count 307 X10*3/uL (160-400); Red Blood Count 4.45 X10*6/uL (4.20-5.50); Red Cell Distribution Width 12.9 % (11.0-16.0); White Blood Count 10.1 X10*3/uL (4.8-10.8)
[2024-02-17 19:35] LABS: Alanine Aminotransferase 16 U/L (0-31); Alkaline Phosphatase 101 U/L (39-117); Anion Gap 12 (12-20); Aspartate Amino Transferase 16 U/L (5-31); Bilirubin Total 0.3 mg/dL (0.0-1.0); Blood Urea Nitrogen 6 mg/dL (9-16); Calcium 8.8 mg/dL (8.4-10.2); Carbon Dioxide 25 mmol/L (22-29); Chloride 107 mmol/L (96-108); Creatinine Clr Calc Pharmacy 123.8; Estimated Glomerular Filt Rate > 60; Glucose Random 103 mg/dL (60-115); Sodium 140 mmol/L (135-145); Total Protein 6.4 g/dL (6.5-8.0)
[2024-02-17 20:06] VITALS: BP 108/68; PULSE 66; RESP 16; TEMP 36.4; O2SAT 97
[2024-02-17] MEDS: Fluconazole 150 MG TABLET PO (20:11)
[2024-02-17 20:15] VITALS: BP 108/68; PULSE 66; RESP 16; TEMP 36.4; O2SAT 97
== END 2024-02-17 20:19 | disposition home or self-care (01) ==
PROVIDERS: Physician Assistant; Emergency Provider Internal Medicine; PCP Internal Medicine
DX: B37.2 Candidiasis of skin and nail (principal); R21 Rash and other nonspecific skin eruption; Z79.899 Other long term (current) drug therapy
CPT/HCPCS: 36415; 80053; 85025; 99282; 99283

== ENCOUNTER 2024-02-22 21:16 | Emergency (ER) | payer MEDICARE, MEDICAID, SELFPAY ==
--- NOTE | ~2024-02-22 | XR_ITS ---
EXAMINATION: XR KNEE, RIGHT CLINICAL INFORMATION: Knee pain and swelling COMPARISON: 12/03/2018 TECHNIQUE: Four views of the right knee. FINDINGS: No fracture or joint effusion. Alignment is anatomic. Joint space narrowing and osteophyte formation is seen within the femoral tibial joint and patellofemoral joint consistent with moderate osteoarthritis, which has progressed since prior exam. XR/XR knee RT 3V IMPRESSION: Moderate osteoarthritis which has progressed since prior exam.
[2024-02-22 21:56] VITALS: BP 136/79; PULSE 74; RESP 16; TEMP 36.2; O2SAT 94; BMI 36.1
--- NOTE | 2024-02-23 03:34 | ED.EXTPRO ---
HPI - Extremity Problem General Chief complaint: Extremity Problem Stated complaint: RT knee injury Time Seen by Provider: 02/23/24 03:19 Source: patient Mode of arrival: ambulatory Limitations: no limitations History of Present Illness ED Provider: DOTTIE HPI Narrative: 44 yo female with PMH of UTI, arthritis, PTSD, bipolar disorder here with pain in R knee after getting out of car Thursday she now has knee pain and pain walking. She has had issues with her knees in the past and received injections. She does not have orthopedic doctor right now. She does not have rash or fever. MD Complaint: joint swelling and joint pain Onset (ago): day(s) (3) Pain Consistency: constant Location: right and knee Quality: aching Radiation: none Relieving factors: rest Exacerbating factors: weight bearing, walking and palpation Associated symptoms: denies other symptoms Context: other (occurred after getting out of car) Related Data Home Medications ?Medication ?Instructions ?Recorded ?Confirmed cholecalciferol (vitamin D3) 25 25 mcg PO DAILY 10/22/20 10/22/20 mcg (1,000 unit) capsule (Vitamin D3) doxepin 50 mg capsule 50 mg PO DAILY 10/22/20 10/22/20 ferrous sulfate 324 mg (65 mg 324 mg PO DAILY 10/22/20 10/22/20 iron) tablet,delayed release lamotrigine 150 mg tablet 150 mg PO DAILY 10/22/20 10/22/20 multivitamin cap 10/22/20 olanzapine 20 mg tablet (Zyprexa) 20 mg PO DAILY 10/22/20 10/22/20 ondansetron 4 mg disintegrating 4 mg PO Q6H PRN Nausea And Vomiting 10/22/20 10/22/20 tablet pantoprazole 40 mg tablet,delayed 40 mg PO DAILY 10/22/20 10/22/20 release verapamil 40 mg tablet 40 mg PO DAILY 10/22/20 10/22/20 Previous Rx's ?Medication ?Instructions ?Recorded sulfamethoxazole 800 1 tab PO BID #14 tabs 10/22/20 mg-trimethoprim 160 mg tablet (Bactrim DS) nitrofurantoin 100 mg PO Q12H 7 days #14 caps 03/11/21 monohydrate/macrocrystals 100 mg capsule (Macrobid) tranexamic acid 650 mg tablet 650 mg PO BID 5 days #10 tabs 03/11/21 ferrous sulfate 325 mg (65 mg 325 mg PO TID 2 months #180 tabs 04/28/21 iron) tablet ondansetron 4 mg disintegrating 4 mg PO Q6-8H PRN nausea and 04/28/21 tablet vomiting #14 tabs oxycodone 5 mg tablet 5 mg PO Q4H PRN pain #14 tabs 04/28/21 morphine 15 mg immediate release 15 mg PO Q6H PRN pain 3 days #8 05/15/21 tablet tabs nitrofurantoin 100 mg PO BID 7 days #14 caps 05/15/21 monohydrate/macrocrystals 100 mg capsule (Macrobid) ondansetron 4 mg disintegrating 4 mg PO Q8H PRN nausea and 05/15/21 tablet vomiting #20 tabs pantoprazole 40 mg tablet,delayed 40 mg PO DAILY #30 tabs 05/28/21 release (Protonix) meclizine 25 mg tablet 25 mg PO BID PRN dizziness #14 tabs 07/27/22 nitrofurantoin 100 mg PO BID 5 days #10 caps 07/27/22 monohydrate/macrocrystals 100 mg capsule (Macrobid) lorazepam 1 mg tablet (Ativan) 1 mg PO BEDTIME PRN dizziness or 09/03/22 vertigo #7 tabs meclizine 25 mg tablet 25 mg PO TID PRN dizziness #20 tabs 09/03/22 cefuroxime axetil 500 mg tablet 500 mg PO Q12H 7 days #14 tabs 05/31/23 nitrofurantoin 100 mg PO Q12H 5 days #10 caps 09/02/23 monohydrate/macrocrystals 100 mg capsule (Macrobid) tranexamic acid 650 mg tablet 1,300 mg (2 x 650 mg) PO TID 5 10/12/23 days #30 tabs cefuroxime axetil 500 mg tablet 500 mg PO BID #13 tabs 12/30/23 clotrimazole-betamethasone 1 1 appl topical BID 1 week #45 grams 02/17/24 %-0.05 % topical cream cyclobenzaprine 10 mg tablet 10 mg PO TID PRN muscle spasm #20 02/23/24 tabs lidocaine 5 % topical gel 1 ea topical BID PRN pain #10 grams 02/23/24 Allergies Allergy/AdvReac Type Severity Reaction Status Date / Time Penicillins Allergy Mild HIVES Verified 02/22/24 21:58 naproxen [NAPROXEN] Allergy Unknown BLEEDING Verified 02/22/24 21:58 penicillin V Allergy Unknown Hives Verified 02/22/24 21:58 Review of Systems Review of Systems: Constitutional : No Fever, No Chills ENT/Mouth : No Ear Pain, No Hoarseness, No sore throat Eyes: No Eye Pain, No Swelling, No Redness, No Foreign Body Cardiovascular : No Chest Pain, No SOB Respiratory : No Cough, No Dyspnea Gastrointestinal : No Nausea, No Vomiting, No Diarrhea, No abdominal Pain Genitourinary : No Dysuria, No Hematuria Musculoskeletal : positive joint pain, No Myalgias, No Joint Swelling Skin : No Skin lacerations, No rash Neuro : No Weakness, No Numbness, No Loss of Consciousness, No Dizziness, No Headache All other systems reviewed and are negative [facility] Past Medical History Source: old records reviewed Medical History PTSD (post-traumatic stress disorder) Bipolar 1 disorder Anxiety delivery delivered Surgical History Gastric bypass status for obesity Tubal ligation status Social History Social History Alcohol intake: current Alcohol intake frequency: holidays/special occasions only Patient Tobacco Use Status: Never used Tobacco Substance Use Type: Marijuana Advance Directives: No Advance Directives Information Provided: Yes Physical Exam Vital Signs: Vital Signs: Last Vital Signs Temp 97.1 F 02/22/24 21:56 Pulse 74 02/22/24 21:56 Resp 16 02/22/24 21:56 BP 136/79 02/22/24 21:56 Pulse Ox 94 02/22/24 21:56 O2 Del Method Room Air 02/22/24 21:56 BMI result Body Mass Index 36.1 Appearance: Alert. Oriented X3. No acute distress. Eyes: Pupils equal, round and reactive to light. ENT: Pharynx normal. Neck: Normal inspection. Neck supple. CVS: Pulses normal. Respiratory: No respiratory distress. Abdomen: atraumatic Skin: Skin warm and dry. Normal skin color. Extremities: No lower extremity edema. R knee ttp pain with ROM but no warmth, redness, effusion distal NV intact Neuro: Oriented X 3. No motor deficit. No sensory deficit. Medical Decision Making Medical Decision Making [facility] Narrative: 44 yo female with PMH of UTI, arthritis, PTSD, bipolar disorder here with R knee pain after getting out of the car at this time NV intact not toxic no signs of septic joint - xray shows arthritis, at this time will provide analgesia and instruct ortho follow up Differential Diagnosis Differential Diagnoses: The differential diagnosis associated with the presentation includes strain, sprain Independent Interpretation I performed an independent interpretation of an: Plain X-Ray (arthritis) Radiology Impression Discussion of test interpretation with radiology: I have reviewed the radiologist's reading. External Record Review External record reviewed: Outpatient record Prescription Management I considered prescription management with: Pain Medication and Other Discharge Plan Discharge Clinical Impression: Arthralgia of knee, right Patient Disposition: Home, Self-Care Instructions: Knee Pain (ED), Arthralgia (ED) Additional Instructions: worsening arthritis on exam please follow up with orthopedics return for any worsening symptoms or concerns FINDINGS: No fracture or joint effusion. Alignment is anatomic. Joint space narrowing and osteophyte formation is seen within the femoral tibial joint and patellofemoral joint consistent with moderate osteoarthritis, which has progressed since prior exam. XR/XR knee RT 3V IMPRESSION: Moderate osteoarthritis which has progressed since prior exam. Prescriptions: New cyclobenzaprine 10 mg tablet 10 mg PO TID PRN (Reason: muscle spasm) Qty: 20 0RF lidocaine 5 % gel 1 ea topical BID PRN (Reason: pain) Qty: 10 0RF No Action lamotrigine 150 mg Tablet 150 mg PO DAILY doxepin 50 mg Capsule 50 mg PO DAILY verapamil 40 mg Tablet 40 mg PO DAILY pantoprazole 40 mg Tablet,Delayed Release (Dr/Ec) 40 mg PO DAILY ondansetron 4 mg Tablet,Disintegrating 4 mg PO Q6H PRN (Reason: Nausea And Vomiting) multivitamin Capsule olanzapine [Zyprexa] 20 mg Tablet 20 mg PO DAILY cholecalciferol (vitamin D3) [Vitamin D3] 25 mcg (1,000 unit) Capsule 25 mcg PO DAILY ferrous sulfate 324 mg (65 mg iron) Tablet,Delayed Release (Dr/Ec) 324 mg PO DAILY sulfamethoxazole-trimethoprim [Bactrim DS] 800-160 mg tablet 1 tab PO BID Qty: 14 0RF nitrofurantoin monohyd/m-cryst [Macrobid] 100 mg capsule 100 mg PO Q12H 7 Days Qty: 14 0RF Rx Instructions: must administer with a meal/food tranexamic acid 650 mg tablet 650 mg PO BID 5 Days Qty: 10 0RF ondansetron 4 mg tablet,disintegrating 4 mg PO Q6-8H PRN (Reason: nausea and vomiting) Qty: 14 0RF oxycodone 5 mg tablet 5 mg PO Q4H PRN (Reason: pain) Qty: 14 0RF Rx Instructions: Patient may request partial fill ferrous sulfate 325 mg (65 mg iron) tablet 325 mg PO TID 60 Days Qty: 180 0RF morphine 15 mg tablet 15 mg PO Q6H PRN (Reason: pain) 3 Days Qty: 8 0RF ondansetron 4 mg tablet,disintegrating 4 mg PO Q8H PRN (Reason: nausea and vomiting) Qty: 20 0RF nitrofurantoin monohyd/m-cryst [Macrobid] 100 mg capsule 100 mg PO BID 7 Days Qty: 14 0RF Rx Instructions: must administer with a meal/food pantoprazole [Protonix] 40 mg tablet,delayed release (DR/EC) 40 mg PO DAILY Qty: 30 0RF meclizine 25 mg tablet 25 mg PO BID PRN (Reason: dizziness) Qty: 14 0RF nitrofurantoin monohyd/m-cryst [Macrobid] 100 mg capsule 100 mg PO BID 5 Days Qty: 10 0RF Rx Instructions: must administer with a meal/food meclizine 25 mg tablet 25 mg PO TID PRN (Reason: dizziness) Qty: 20 0RF lorazepam [Ativan] 1 mg tablet 1 mg PO BEDTIME PRN (Reason: dizziness or vertigo) Qty: 7 0RF nitrofurantoin monohyd/m-cryst [Macrobid] 100 mg capsule 100 mg PO Q12H 5 Days Qty: 10 0RF Rx Instructions: must administer with a meal/food tranexamic acid 650 mg tablet 1,300 mg PO TID 5 Days Qty: 30 0RF cefuroxime axetil 500 mg tablet 500 mg PO BID Qty: 13 0RF clotrimazole-betamethasone 1-0.05 % cream 1 appl topical BID 7 Days Qty: 45 0RF cefuroxime axetil 500 mg tablet 500 mg PO Q12H 7 Days Qty: 14 0RF Print Language: Yakut
[2024-02-23 03:38] VITALS: BP 124/73; PULSE 69; RESP 12; O2SAT 97
[2024-02-23 03:47] VITALS: TEMP 36.7
[2024-02-23 03:49] VITALS: BP 124/73; PULSE 69; RESP 12; TEMP 36.7; O2SAT 97
== END 2024-02-23 03:50 | disposition home or self-care (01) ==
PROVIDERS: Emergency Provider Emergency Medicine
DX: M25.561 Pain in right knee (principal)
CPT/HCPCS: 73562; 99283

== ENCOUNTER 2024-03-05 01:05 | Emergency (ER) | payer MEDICARE, MEDICAID, SELFPAY ==
[2024-03-05 01:13] VITALS: BP 128/60; PULSE 95; RESP 16; TEMP 36.2; O2SAT 97; BMI 36.2
[2024-03-05 02:14] VITALS: BP 106/65; PULSE 85; RESP 16; TEMP 36.7; O2SAT 96
[2024-03-05 02:23] LABS: Appearance Urine Cloudy; Color Urine Yellow; Glucose Urine UA Negative (Negative); Leukocyte Esterase Urine Moderate (2+) (Negative); Nitrite Urine Negative (Negative); Specific Gravity - Urine <= 1.005 (1.005-1.025); UMIC TRIGGER UACC YES; Urine Blood Negative (Negative); Urine Ketones 15 mg/dL (Negative); Urine Protein Negative (Neg-Trace)
[2024-03-05 02:28] LABS: Bacteria Urine 1+ (None Seen); Hyaline Casts Urine 0-2 /LPF (0-2); RBC Urine 0-2 /HPF (0-2); UACC Culture Trigger YES; WBC Urine 21-50 /HPF (0-5)
--- NOTE | 2024-03-05 02:36 | ED.FEMALEGU ---
HPI - Female Genitourinary General Chief complaint: Urogenital-Female Stated complaint: Kidney Infection Time Seen by Provider: 03/05/24 02:29 Source: patient Mode of arrival: ambulatory Limitations: no limitations History of Present Illness ED Provider: Dr. Jewels Segal HPI Narrative: Patient comes to emergency room complaining of left-sided flank pain. Patient states that yesterday she was diagnosed with a UTI at [facility], prescribed Macrobid. Patient states that after 2 doses, she has not noticed any change. Patient denies fever chills. Patient states that she always his blood in the urine secondary to uterine fibroids. Related Data Home Medications ?Medication ?Instructions ?Recorded ?Confirmed cholecalciferol (vitamin D3) 25 25 mcg PO DAILY 10/22/20 10/22/20 mcg (1,000 unit) capsule (Vitamin D3) doxepin 50 mg capsule 50 mg PO DAILY 10/22/20 10/22/20 ferrous sulfate 324 mg (65 mg 324 mg PO DAILY 10/22/20 10/22/20 iron) tablet,delayed release lamotrigine 150 mg tablet 150 mg PO DAILY 10/22/20 10/22/20 multivitamin cap 10/22/20 olanzapine 20 mg tablet (Zyprexa) 20 mg PO DAILY 10/22/20 10/22/20 ondansetron 4 mg disintegrating 4 mg PO Q6H PRN Nausea And Vomiting 10/22/20 10/22/20 tablet pantoprazole 40 mg tablet,delayed 40 mg PO DAILY 10/22/20 10/22/20 release verapamil 40 mg tablet 40 mg PO DAILY 10/22/20 10/22/20 Previous Rx's ?Medication ?Instructions ?Recorded sulfamethoxazole 800 1 tab PO BID #14 tabs 10/22/20 mg-trimethoprim 160 mg tablet (Bactrim DS) nitrofurantoin 100 mg PO Q12H 7 days #14 caps 03/11/21 monohydrate/macrocrystals 100 mg capsule (Macrobid) tranexamic acid 650 mg tablet 650 mg PO BID 5 days #10 tabs 03/11/21 ferrous sulfate 325 mg (65 mg 325 mg PO TID 2 months #180 tabs 04/28/21 iron) tablet ondansetron 4 mg disintegrating 4 mg PO Q6-8H PRN nausea and 04/28/21 tablet vomiting #14 tabs oxycodone 5 mg tablet 5 mg PO Q4H PRN pain #14 tabs 04/28/21 morphine 15 mg immediate release 15 mg PO Q6H PRN pain 3 days #8 05/15/21 tablet tabs nitrofurantoin 100 mg PO BID 7 days #14 caps 05/15/21 monohydrate/macrocrystals 100 mg capsule (Macrobid) ondansetron 4 mg disintegrating 4 mg PO Q8H PRN nausea and 05/15/21 tablet vomiting #20 tabs pantoprazole 40 mg tablet,delayed 40 mg PO DAILY #30 tabs 05/28/21 release (Protonix) meclizine 25 mg tablet 25 mg PO BID PRN dizziness #14 tabs 07/27/22 nitrofurantoin 100 mg PO BID 5 days #10 caps 07/27/22 monohydrate/macrocrystals 100 mg capsule (Macrobid) lorazepam 1 mg tablet (Ativan) 1 mg PO BEDTIME PRN dizziness or 09/03/22 vertigo #7 tabs meclizine 25 mg tablet 25 mg PO TID PRN dizziness #20 tabs 09/03/22 cefuroxime axetil 500 mg tablet 500 mg PO Q12H 7 days #14 tabs 05/31/23 nitrofurantoin 100 mg PO Q12H 5 days #10 caps 09/02/23 monohydrate/macrocrystals 100 mg capsule (Macrobid) tranexamic acid 650 mg tablet 1,300 mg (2 x 650 mg) PO TID 5 10/12/23 days #30 tabs cefuroxime axetil 500 mg tablet 500 mg PO BID #13 tabs 12/30/23 clotrimazole-betamethasone 1 1 appl topical BID 1 week #45 grams 02/17/24 %-0.05 % topical cream cyclobenzaprine 10 mg tablet 10 mg PO TID PRN muscle spasm #20 02/23/24 tabs lidocaine 5 % topical gel 1 ea topical BID PRN pain #10 grams 02/23/24 cefuroxime axetil 500 mg tablet 500 mg PO BID #14 tabs 03/05/24 phenazopyridine 100 mg tablet 100 mg PO TID 6 doses #6 tabs 03/05/24 Allergies Allergy/AdvReac Type Severity Reaction Status Date / Time Penicillins Allergy Mild HIVES Verified 03/05/24 01:16 naproxen [NAPROXEN] Allergy Unknown BLEEDING Verified 03/05/24 01:16 penicillin V Allergy Unknown Hives Verified 03/05/24 01:16 Review of Systems Review of Systems: Constitutional : No Weight loss, No Fever, No Chills, No Night Sweats, No Fatigue, No Malaise ENT/Mouth : No Hearing loss, No Ear Pain, No Nasal Congestion, No Sinus Pain, No Hoarseness, No sore throat, No Rhinorrhea, No Swallowing Difficulty Eyes: No Eye Pain, No Swelling, No Redness, No Foreign Body, No Discharge, No Vision Changes Cardiovascular : No Chest Pain, No SOB, No Dyspnea on Exertion, No Orthopnea, No Edema, No Palpitations Respiratory : No Cough, No Sputum, No Wheezing, No Smoke Exposure, No Dyspnea Gastrointestinal : No Nausea, No Vomiting, No Diarrhea, No Constipation, No abdominal Pain, No Hematochezia, No Melena Genitourinary : Complaining of chronic irregular bleeding, scheduled for hysterectomy per patient, complaining of left-sided flank pain, dysuria, No Urinary Incontinence, No Urgency, complaining of left-sided Flank Pain, No Urinary Flow Changes, No Hesitancy Musculoskeletal : No joint pain, No Myalgias, No Joint Swelling Skin : No Skin Lesions, No rash Neuro : No Weakness, No Numbness, No Paresthesias, No Loss of Consciousness, No Dizziness, No Headache Psych : No Anxiety/Panic, No Depression, No SI/HI/AH/VH, No Social Issues, Heme/Lymph: No Bruising, No Bleeding,No Lymphadenopathy Endocrine : No Polyuria, No Polydipsia, No Temperature Intolerance [facility] Past Medical History Medical History PTSD (post-traumatic stress disorder) Bipolar 1 disorder Anxiety delivery delivered Surgical History Gastric bypass status for obesity Tubal ligation status Social History Social History Alcohol intake: current Alcohol intake frequency: a few times a month Patient Tobacco Use Status: Never used Tobacco Smoked in Last 30 Days: No Use of substances other than those prescribed or required for medical reasons: Yes Substance Use Type: Marijuana Advance Directives: No Advance Directives Information Provided: Yes Do you have a plan to hurt others: No Plan Patient : No Physical Exam Vital Signs: Vital Signs: Last Vital Signs Temp 98.1 F 03/05/24 02:14 Pulse 85 03/05/24 02:14 Resp 16 03/05/24 02:14 BP 106/65 03/05/24 02:14 Pulse Ox 96 03/05/24 02:14 O2 Del Method Room Air 03/05/24 02:14 BMI result Body Mass Index 36.2 Const: Other: Appearance: Alert. Oriented X3. No acute distress. Well-appearing Eyes: Pupils equal, round and reactive to light. ENT: Pharynx normal. Neck: Normal inspection. Neck supple. No lymph nodes noted. No crepitus CVS: Normal heart rate and rhythm. Pulses normal. Normal S1 and S2 Respiratory: No respiratory distress. Breath sounds normal. No Wheezing. No rales Abdomen: Soft and nontender. No rigidity. No distention. Left CVA tenderness Skin: Skin warm and dry. Normal skin color. Normal skin turgor. Extremities: No lower extremity edema. No Lacerations. No Rash Neuro: Oriented X 3. No motor deficit. No sensory deficit. Moving all extremities. No slurred speech. CN 2 through 12 grossly intact Psych: calm, cooperative, normal affect Medical Decision Making Medical Decision Making [facility] Narrative: Patient well-appearing, normal vitals, no fever -patient's urinalysis positive for UTI, clinically pyelonephritis. I reviewed patient's medical chart, previous microbiology shows that patient is resistant to levofloxacin, Bactrim, ampicillin. Nitrofurantoin not working very well. Therefore, we will give the patient's cephalosporins. -patient received p.o. cefuroxime and phenazopyridine in the ED - Differential Diagnosis Differential Diagnoses: The differential diagnosis associated with the presentation includes (UTI, pyelonephritis, musculoskeletal pain) Lab Data [facility] Lab Attestation statement: I reviewed the patient's lab results. Labs: Lab Results 03/05/24 Range/Units 02:18 Urine Color Yellow Urine Appearance Cloudy Urine pH 6.0 (5.0-9.0) Ur Specific Reform <= 1.005 (1.005-1.025) Urine Protein Negative (Neg-Trace) mg/dL Urine Glucose (UA) Negative (Negative) mg/dL Urine Ketones 15 (Negative) mg/dL Urine Blood Negative (Negative) Urine Nitrite Negative (Negative) Ur Leukocyte Esterase Moderate (2+) H (Negative) Urine RBC 0-2 (0-2) /HPF Urine WBC 21-50 H (0-5) /HPF Ur Squamous Epith Cells 11-20 (0-2) /HPF Urine Bacteria 1+ (None Seen) Hyaline Casts 0-2 (0-2) /LPF Critical Care Time Critical Care Time Critical Care Time: Yes Total Critical Care Time: 30 Attestation: I have personally provided critical care time. Time includes review of lab data, radiology results, discussion with consultants, and monitoring for potential decompensation. Intervention performed as documented. Discharge Plan Discharge Clinical Impression: Pyelonephritis Patient Disposition: Home, Self-Care Instructions: Kidney Infection (ED) Additional Instructions: Please follow-up with your primary care physician tomorrow. If you have any worsening or new symptoms, please return to the emergency room or call 911 Prescriptions: New cefuroxime axetil 500 mg tablet 500 mg PO BID Qty: 14 0RF phenazopyridine 100 mg tablet 100 mg PO TID Qty: 6 0RF No Action lamotrigine 150 mg Tablet 150 mg PO DAILY doxepin 50 mg Capsule 50 mg PO DAILY verapamil 40 mg Tablet 40 mg PO DAILY pantoprazole 40 mg Tablet,Delayed Release (Dr/Ec) 40 mg PO DAILY ondansetron 4 mg Tablet,Disintegrating 4 mg PO Q6H PRN (Reason: Nausea And Vomiting) multivitamin Capsule olanzapine [Zyprexa] 20 mg Tablet 20 mg PO DAILY cholecalciferol (vitamin D3) [Vitamin D3] 25 mcg (1,000 unit) Capsule 25 mcg PO DAILY ferrous sulfate 324 mg (65 mg iron) Tablet,Delayed Release (Dr/Ec) 324 mg PO DAILY sulfamethoxazole-trimethoprim [Bactrim DS] 800-160 mg tablet 1 tab PO BID Qty: 14 0RF nitrofurantoin monohyd/m-cryst [Macrobid] 100 mg capsule 100 mg PO Q12H 7 Days Qty: 14 0RF Rx Instructions: must administer with a meal/food tranexamic acid 650 mg tablet 650 mg PO BID 5 Days Qty: 10 0RF ondansetron 4 mg tablet,disintegrating 4 mg PO Q6-8H PRN (Reason: nausea and vomiting) Qty: 14 0RF oxycodone 5 mg tablet 5 mg PO Q4H PRN (Reason: pain) Qty: 14 0RF Rx Instructions: Patient may request partial fill ferrous sulfate 325 mg (65 mg iron) tablet 325 mg PO TID 60 Days Qty: 180 0RF morphine 15 mg tablet 15 mg PO Q6H PRN (Reason: pain) 3 Days Qty: 8 0RF ondansetron 4 mg tablet,disintegrating 4 mg PO Q8H PRN (Reason: nausea and vomiting) Qty: 20 0RF nitrofurantoin monohyd/m-cryst [Macrobid] 100 mg capsule 100 mg PO BID 7 Days Qty: 14 0RF Rx Instructions: must administer with a meal/food pantoprazole [Protonix] 40 mg tablet,delayed release (DR/EC) 40 mg PO DAILY Qty: 30 0RF meclizine 25 mg tablet 25 mg PO BID PRN (Reason: dizziness) Qty: 14 0RF nitrofurantoin monohyd/m-cryst [Macrobid] 100 mg capsule 100 mg PO BID 5 Days Qty: 10 0RF Rx Instructions: must administer with a meal/food meclizine 25 mg tablet 25 mg PO TID PRN (Reason: dizziness) Qty: 20 0RF lorazepam [Ativan] 1 mg tablet 1 mg PO BEDTIME PRN (Reason: dizziness or vertigo) Qty: 7 0RF nitrofurantoin monohyd/m-cryst [Macrobid] 100 mg capsule 100 mg PO Q12H 5 Days Qty: 10 0RF Rx Instructions: must administer with a meal/food tranexamic acid 650 mg tablet 1,300 mg PO TID 5 Days Qty: 30 0RF cefuroxime axetil 500 mg tablet 500 mg PO BID Qty: 13 0RF clotrimazole-betamethasone 1-0.05 % cream 1 appl topical BID 7 Days Qty: 45 0RF cefuroxime axetil 500 mg tablet 500 mg PO Q12H 7 Days Qty: 14 0RF cyclobenzaprine 10 mg tablet 10 mg PO TID PRN (Reason: muscle spasm) Qty: 20 0RF lidocaine 5 % gel 1 ea topical BID PRN (Reason: pain) Qty: 10 0RF Print Language: [place]riot
[2024-03-05] MEDS: cefuroxime axetiL 500 MG TABLET PO (02:41)
[2024-03-05] MEDS: Phenazopyridine HCL 100 MG TABLET PO (02:41)
[2024-03-05 02:54] VITALS: BP 119/72; PULSE 88; RESP 18; TEMP 36.6; O2SAT 96
[2024-03-05 02:55] VITALS: BP 119/72; PULSE 88; RESP 18; TEMP 36.6; O2SAT 96
== END 2024-03-05 02:55 | disposition home or self-care (01) ==
PROVIDERS: Emergency Provider Emergency Medicine; PCP Internal Medicine
DX: N12 Tubulo-interstitial nephritis, not specified as acute or chronic (principal)
CPT/HCPCS: 81001; 87086; 99283; 99284

== ENCOUNTER 2024-03-10 22:02 | Emergency (ER) | payer MEDICARE, MEDICAID, SELFPAY ==
[2024-03-10 22:08] VITALS: BP 129/74; PULSE 91; RESP 14; TEMP 36.4; O2SAT 97; BMI 36.4
[2024-03-10 23:37] LABS: Appearance Urine Clear; Color Urine Yellow; Glucose Urine UA Negative (Negative); Leukocyte Esterase Urine Negative (Negative); Nitrite Urine Negative (Negative); PH 5.5 (5.0-9.0); Urine Blood Negative (Negative); Urine Ketones Trace mg/dL (Negative); Urine Protein Negative (Neg-Trace)
[2024-03-10 23:40] LABS: Bacteria Urine None Seen (None Seen); Hyaline Casts Urine 0-2 /LPF (0-2); RBC Urine 0-2 /HPF (0-2); UACC Culture Trigger YES
--- NOTE | 2024-03-11 04:09 | ED_ITS ---
HPI - Female Genitourinary General Chief complaint: Urogenital-Female Stated complaint: lower abd pain radiating to back Time Seen by Provider: 03/11/24 04:09 History of Present Illness ED Provider: Uziel VILLALBA Narrative: The patient is a 44-year-old woman with a history of a gastric sleeve and gastric bypass surgeries. She has also had a cholecystectomy. She says she has also had kidney stones. She says that she has been having abdominal and flank pains for about a week. She says that she went to [facility] on March [address] scan that she says showed a kidney stone. She was also told that she had a urinary tract infection. She was prescribed cefpodoxime and discharged from the emergency room. The patient says that she is having ongoing pains that are very uncomfortable. She comes to the emergency room because of these ongoing symptoms. Related Data Home Medications ?Medication ?Instructions ?Recorded ?Confirmed cholecalciferol (vitamin D3) 25 25 mcg PO DAILY 10/22/20 10/22/20 mcg (1,000 unit) capsule (Vitamin D3) doxepin 50 mg capsule 50 mg PO DAILY 10/22/20 10/22/20 ferrous sulfate 324 mg (65 mg 324 mg PO DAILY 10/22/20 10/22/20 iron) tablet,delayed release lamotrigine 150 mg tablet 150 mg PO DAILY 10/22/20 10/22/20 multivitamin cap 10/22/20 olanzapine 20 mg tablet (Zyprexa) 20 mg PO DAILY 10/22/20 10/22/20 ondansetron 4 mg disintegrating 4 mg PO Q6H PRN Nausea And Vomiting 10/22/20 10/22/20 tablet pantoprazole 40 mg tablet,delayed 40 mg PO DAILY 10/22/20 10/22/20 release verapamil 40 mg tablet 40 mg PO DAILY 10/22/20 10/22/20 Previous Rx's ?Medication ?Instructions ?Recorded sulfamethoxazole 800 1 tab PO BID #14 tabs 10/22/20 mg-trimethoprim 160 mg tablet (Bactrim DS) nitrofurantoin 100 mg PO Q12H 7 days #14 caps 03/11/21 monohydrate/macrocrystals 100 mg capsule (Macrobid) tranexamic acid 650 mg tablet 650 mg PO BID 5 days #10 tabs 03/11/21 ferrous sulfate 325 mg (65 mg 325 mg PO TID 2 months #180 tabs 04/28/21 iron) tablet ondansetron 4 mg disintegrating 4 mg PO Q6-8H PRN nausea and 04/28/21 tablet vomiting #14 tabs oxycodone 5 mg tablet 5 mg PO Q4H PRN pain #14 tabs 04/28/21 morphine 15 mg immediate release 15 mg PO Q6H PRN pain 3 days #8 05/15/21 tablet tabs nitrofurantoin 100 mg PO BID 7 days #14 caps 05/15/21 monohydrate/macrocrystals 100 mg capsule (Macrobid) ondansetron 4 mg disintegrating 4 mg PO Q8H PRN nausea and 05/15/21 tablet vomiting #20 tabs pantoprazole 40 mg tablet,delayed 40 mg PO DAILY #30 tabs 05/28/21 release (Protonix) meclizine 25 mg tablet 25 mg PO BID PRN dizziness #14 tabs 07/27/22 nitrofurantoin 100 mg PO BID 5 days #10 caps 07/27/22 monohydrate/macrocrystals 100 mg capsule (Macrobid) lorazepam 1 mg tablet (Ativan) 1 mg PO BEDTIME PRN dizziness or 09/03/22 vertigo #7 tabs meclizine 25 mg tablet 25 mg PO TID PRN dizziness #20 tabs 09/03/22 cefuroxime axetil 500 mg tablet 500 mg PO Q12H 7 days #14 tabs 05/31/23 nitrofurantoin 100 mg PO Q12H 5 days #10 caps 09/02/23 monohydrate/macrocrystals 100 mg capsule (Macrobid) tranexamic acid 650 mg tablet 1,300 mg (2 x 650 mg) PO TID 5 10/12/23 days #30 tabs cefuroxime axetil 500 mg tablet 500 mg PO BID #13 tabs 12/30/23 clotrimazole-betamethasone 1 1 appl topical BID 1 week #45 grams 02/17/24 %-0.05 % topical cream cyclobenzaprine 10 mg tablet 10 mg PO TID PRN muscle spasm #20 02/23/24 tabs lidocaine 5 % topical gel 1 ea topical BID PRN pain #10 grams 02/23/24 cefuroxime axetil 500 mg tablet 500 mg PO BID #14 tabs 03/05/24 phenazopyridine 100 mg tablet 100 mg PO TID 6 doses #6 tabs 03/05/24 Allergies Allergy/AdvReac Type Severity Reaction Status Date / Time Penicillins Allergy Mild HIVES Verified 03/10/24 22:11 naproxen [NAPROXEN] Allergy Unknown BLEEDING Verified 03/10/24 22:11 penicillin V Allergy Unknown Hives Verified 03/10/24 22:11 Review of Systems 2 Review of Systems: Yes all other systems are reviewed and are negative [facility] Past Medical History Medical History PTSD (post-traumatic stress disorder) Bipolar 1 disorder Anxiety delivery delivered Surgical History Gastric bypass status for obesity Tubal ligation status Social History Social History Alcohol intake: never Patient Tobacco Use Status: Never used Tobacco Smoked in Last 30 Days: No Use of substances other than those prescribed or required for medical reasons: Yes Substance Use Type: Marijuana Advance Directives: No Advance Directives Information Provided: No Do you have a plan to hurt others: No Plan Patient : No Physical Exam 2 Vital Signs: Vital Signs: Last Vital Signs Temp 98.2 F 03/11/24 05:48 Pulse 70 03/11/24 05:48 Resp 16 03/11/24 05:48 BP 112/68 03/11/24 05:48 Pulse Ox 95 03/11/24 05:48 O2 Del Method Room Air 03/11/24 05:48 BMI result Body Mass Index 36.4 Const: Other: The patient is a 44-year-old woman who is awake and alert does not appear in distress. Orientation/consciousness: patient oriented x3 HEENT: Head: Yes normal to inspection Face and sinus: Yes normal facial exam Mouth: Normal oral and palatal mucosa present Eyes: General: appearance normal, both eyes and all related structures Neck: Neck: Yes full ROM Resp: Effort & Inspection: normal respiratory effort Cardio: Rate: regular rate Rhythm: regular rhythm Heart sounds: S1 normal heart sound present and S2 normal heart sound present GI: Other: Abdomen is soft and nontender : General: Yes no CVA tenderness Back/Spine/Pelvis: Back: no CVA tenderness Skin: General skin exam: no rashes or lesions noted Neuro: General: patient oriented x3, gait normal, moves all extremities and CN's II-XI intact bilaterally Extrem: General: Yes full ROM and Yes no pedal edema Medical Decision Making Medical Decision Making [facility] Narrative: the patient is a 44-year-old woman who says that on the day prior to presentation she had been seen in the emergency room at [facility] for abdominal or flank pain. She says that she had a CT scan that showed a kidney stone. She was says that she was also told that she had a urinary tract infection and was started on cefpodoxime. She comes to the emergency room complaining of ongoing discomfort and nausea. in our emergency room today her blood work is very unremarkable with an unremarkable white count differential and an unremarkable C-reactive protein. Her urinalysis is only minimally abnormal. Her physical exam is also quite benign and I do not feel either her physical exam or her laboratory evaluation is suggestive of pyelonephritis. I was able to get records from [facility]. She had had a CT scan of the abdomen and pelvis without contrast that showed a left-sided 3mm intrarenal stone but no ureteral stones Or obstruction. Clinically the patient did not appear ill and I did not feel that there was any indication for changing the patient's antibiotic at this point without more information. I explained my thinking to the patient and I explained how the kidney stone that had been seen at the CT scan at [facility] was not in a position to be causing any pain. She was advised to continue her current antibiotic. She requested a work note. This was provided. Lab Data 03/11/24 04:42 03/11/24 04:42 Labs: Lab Results 03/10/24 03/11/24 Range/Units 23:25 04:42 WBC 8.4 (4.8-10.8) X10*3/uL RBC 4.41 (4.20-5.50) X10*6/uL Hgb 12.4 (12.0-16.0) g/dl Hct 37.1 (37.0-47.0) % MCV 84.1 (80.0-98.0) fL MCH 28.1 (27.0-33.0) pg MCHC 33.4 (31.0-35.0) g/dl RDW 12.6 (11.0-16.0) % Plt Count 313 (160-400) X10*3/uL MPV 8.7 L (9.4-12.3) fL Immature Gran % (Auto) 0.2 (0.0-0.4) % Neut % (Auto) 60.8 (45-73) % Lymph % (Auto) 29.3 (20-40) % [place] % (Auto) 7.9 (2-11) % Eos % (Auto) 1.4 (0-4) % Baso % (Auto) 0.4 (0-2) % Lymph # (Auto) 2.5 (1.2-4.9) X10*3/uL [place] # (Auto) 0.7 (0.1-1.2) X10*3/uL Eos # (Auto) 0.1 (0.0-0.4) X10*3/uL Baso # (Auto) 0.0 (0.0-0.2) X10*3/uL Abs Immat Gran (auto) 0.02 (0.00-0.03) X10*3/uL Absolute Neuts (auto) 5.1 (2.0-8.3) x10*3/uL Absolute Nucleated RBC 0.000 (0.0-0.012) X10*3/uL Nucleated RBC % (auto) 0.0 (0.0-0.2) /100WBC Sodium 141 (135-145) mmol/L Potassium 3.7 (3.3-5.1) mmol/L Chloride 106 (96-108) mmol/L Carbon Dioxide 27 (22-29) mmol/L Anion Gap 12 (12-20) BUN 7 L (9-16) mg/dL Creatinine 0.66 (0.5-1.4) mg/dL Estim Creat Clear Calc 147.9 Estimated GFR > 60 Random Glucose 86 (60-115) mg/dL Calcium 9.0 (8.4-10.2) mg/dL Total Bilirubin 0.2 (0.0-1.0) mg/dL Direct Bilirubin < 0.2 (0.0-0.5) mg/dL AST 17 (5-31) U/L ALT 14 (0-31) U/L Alkaline Phosphatase 87 (39-117) U/L C-Reactive Protein 0.53 H (< or = 0.50) mg/dL Total Protein 6.2 L (6.5-8.0) g/dL Albumin 3.9 (3.5-5.0) g/dL Lipase 26 (8-78) U/L Beta HCG, Quant < 2 mIU/mL Urine Color Yellow Urine Appearance Clear Urine pH 5.5 (5.0-9.0) Ur Specific [place] 1.020 (1.005-1.025) Urine Protein Negative (Neg-Trace) mg/dL Urine Glucose (UA) Negative (Negative) mg/dL Urine Ketones Trace (Negative) mg/dL Urine Blood Negative (Negative) Urine Nitrite Negative (Negative) Ur Leukocyte Esterase Negative (Negative) Urine RBC 0-2 (0-2) /HPF Urine WBC 6-10 H (0-5) /HPF Ur Squamous Epith Cells 6-10 (0-2) /HPF Urine Bacteria None Seen (None Seen) Hyaline Casts 0-2 (0-2) /LPF Discharge Plan Discharge Clinical Impression: Abdominal pain, Urinary frequency, Kidney stone on left side Patient Disposition: Home, Self-Care Additional Instructions: We obtained records from [facility]. The CT scan you had at [facility] recently showed a 3 mm stone with in your left kidney. A stone that is still within the kidney is not a stone that causes pain or any other symptoms. This stone could cause symptoms in the future if it breaks loose from the kidney but it may stay in his current location indefinitely. Your blood tests are very reassuring. Your urine test today looks quite good as well. Given that your blood tests and your urine tests look good I think the antibiotic you were currently taking his probably working. Please continue your current antibiotic, cefpodoxime. Please follow up soon with your regular doctor. Return to the emergency room if worse. Prescriptions: No Action lamotrigine 150 mg Tablet 150 mg PO DAILY doxepin 50 mg Capsule 50 mg PO DAILY verapamil 40 mg Tablet 40 mg PO DAILY pantoprazole 40 mg Tablet,Delayed Release (Dr/Ec) 40 mg PO DAILY ondansetron 4 mg Tablet,Disintegrating 4 mg PO Q6H PRN (Reason: Nausea And Vomiting) multivitamin Capsule olanzapine [Zyprexa] 20 mg Tablet 20 mg PO DAILY cholecalciferol (vitamin D3) [Vitamin D3] 25 mcg (1,000 unit) Capsule 25 mcg PO DAILY ferrous sulfate 324 mg (65 mg iron) Tablet,Delayed Release (Dr/Ec) 324 mg PO DAILY sulfamethoxazole-trimethoprim [Bactrim DS] 800-160 mg tablet 1 tab PO BID Qty: 14 0RF nitrofurantoin monohyd/m-cryst [Macrobid] 100 mg capsule 100 mg PO Q12H 7 Days Qty: 14 0RF Rx Instructions: must administer with a meal/food tranexamic acid 650 mg tablet 650 mg PO BID 5 Days Qty: 10 0RF ondansetron 4 mg tablet,disintegrating 4 mg PO Q6-8H PRN (Reason: nausea and vomiting) Qty: 14 0RF oxycodone 5 mg tablet 5 mg PO Q4H PRN (Reason: pain) Qty: 14 0RF Rx Instructions: Patient may request partial fill ferrous sulfate 325 mg (65 mg iron) tablet 325 mg PO TID 60 Days Qty: 180 0RF morphine 15 mg tablet 15 mg PO Q6H PRN (Reason: pain) 3 Days Qty: 8 0RF ondansetron 4 mg tablet,disintegrating 4 mg PO Q8H PRN (Reason: nausea and vomiting) Qty: 20 0RF nitrofurantoin monohyd/m-cryst [Macrobid] 100 mg capsule 100 mg PO BID 7 Days Qty: 14 0RF Rx Instructions: must administer with a meal/food pantoprazole [Protonix] 40 mg tablet,delayed release (DR/EC) 40 mg PO DAILY Qty: 30 0RF meclizine 25 mg tablet 25 mg PO BID PRN (Reason: dizziness) Qty: 14 0RF nitrofurantoin monohyd/m-cryst [Macrobid] 100 mg capsule 100 mg PO BID 5 Days Qty: 10 0RF Rx Instructions: must administer with a meal/food meclizine 25 mg tablet 25 mg PO TID PRN (Reason: dizziness) Qty: 20 0RF lorazepam [Ativan] 1 mg tablet 1 mg PO BEDTIME PRN (Reason: dizziness or vertigo) Qty: 7 0RF nitrofurantoin monohyd/m-cryst [Macrobid] 100 mg capsule 100 mg PO Q12H 5 Days Qty: 10 0RF Rx Instructions: must administer with a meal/food tranexamic acid 650 mg tablet 1,300 mg PO TID 5 Days Qty: 30 0RF cefuroxime axetil 500 mg tablet 500 mg PO BID Qty: 13 0RF clotrimazole-betamethasone 1-0.05 % cream 1 appl topical BID 7 Days Qty: 45 0RF cefuroxime axetil 500 mg tablet 500 mg PO Q12H 7 Days Qty: 14 0RF cyclobenzaprine 10 mg tablet 10 mg PO TID PRN (Reason: muscle spasm) Qty: 20 0RF lidocaine 5 % gel 1 ea topical BID PRN (Reason: pain) Qty: 10 0RF cefuroxime axetil 500 mg tablet 500 mg PO BID Qty: 14 0RF phenazopyridine 100 mg tablet 100 mg PO TID Qty: 6 0RF Referrals: Zaheer Madden MD [Primary Care Provider] - (UTI) Stand Alone Forms: Work/School Release Interventions: ED Discharge Assessment Last Done: 03/11/24 05:48 Discharge Date/Time: 03/11/24 05:49 Print Language: Maldivian
[2024-03-11 04:36] VITALS: BP 109/64; PULSE 74; RESP 16; O2SAT 95
[2024-03-11 04:47] LABS: Basophils Percent Auto 0.4 % (0-2); Eosinophils Absolute Auto 0.1 X10*3/uL (0.0-0.4); Eosinophils Percent Auto 1.4 % (0-4); Hematocrit 37.1 % (37.0-47.0); Hemoglobin 12.4 g/dl (12.0-16.0); Imm Gran Abs Auto 0.02 X10*3/uL (0.00-0.03); Imm Gran Pct Auto 0.2 % (0.0-0.4); Lymphocytes Absolute Auto 2.5 X10*3/uL (1.2-4.9); Lymphocytes Percent Auto 29.3 % (20-40); MANUAL DIFF FLAG NO; Mean Corpuscular HGB Conc 33.4 g/dl (31.0-35.0); Mean Corpuscular Hemoglobin 28.1 pg (27.0-33.0); Mean Corpuscular Volume 84.1 fL (80.0-98.0); Mean Platelet Volume 8.7 fL (9.4-12.3); Monocytes Absolute Auto 0.7 X10*3/uL (0.1-1.2); Monocytes Percent Auto 7.9 % (2-11); Neutrophils Absolute Auto 5.1 x10*3/uL (2.0-8.3); Neutrophils Percent Auto 60.8 % (45-73); Platelet Count 313 X10*3/uL (160-400); Red Blood Count 4.41 X10*6/uL (4.20-5.50); Red Cell Distribution Width 12.6 % (11.0-16.0); White Blood Count 8.4 X10*3/uL (4.8-10.8)
[2024-03-11 05:08] LABS: Alanine Aminotransferase 14 U/L (0-31); Albumin Level 3.9 g/dL (3.5-5.0); Alkaline Phosphatase 87 U/L (39-117); Anion Gap 12 (12-20); Aspartate Amino Transferase 17 U/L (5-31); Bilirubin Direct < 0.2 mg/dL (0.0-0.5); Bilirubin Total 0.2 mg/dL (0.0-1.0); Blood Urea Nitrogen 7 mg/dL (9-16); C Reactive Protein 0.53 mg/dL (< or = 0.50); Carbon Dioxide 27 mmol/L (22-29); Chloride 106 mmol/L (96-108); Creatinine Clr Calc Pharmacy 147.9; Estimated Glomerular Filt Rate > 60; Glucose Random 86 mg/dL (60-115); Lipase 26 U/L (8-78); Potassium 3.7 mmol/L (3.3-5.1); Sodium 141 mmol/L (135-145); Total Protein 6.2 g/dL (6.5-8.0)
[2024-03-11 05:09] LABS: HCG Quantitative < 2 mIU/mL
[2024-03-11 05:48] VITALS: BP 112/68; PULSE 70; RESP 16; TEMP 36.8; O2SAT 95
== END 2024-03-11 05:49 | disposition home or self-care (01) ==
PROVIDERS: Emergency Provider Emergency Medicine; PCP Internal Medicine
DX: N20.0 Calculus of kidney (principal); R10.9 Unspecified abdominal pain; R35.0 Frequency of micturition; Z98.84 Bariatric surgery status; Z90.49 Acquired absence of other specified parts of digestive tract; Z79.899 Other long term (current) drug therapy
CPT/HCPCS: 36415; 80048; 80076; 81001; 83690; 84702; 85025; 86140; 87086; 99283; 99284

== ENCOUNTER 2024-04-05 10:28 | Outpatient (REF) | payer MEDICARE, MEDICAID, SELFPAY ==
[2024-04-05 14:39] LABS: Anion Gap 13 (12-20); Blood Urea Nitrogen 8 mg/dL (9-16); Calcium 9.5 mg/dL (8.4-10.2); Carbon Dioxide 27 mmol/L (22-29); Chloride 106 mmol/L (96-108); Estimated Glomerular Filt Rate > 60; Glucose Fasting 96 mg/dL (60-99); Potassium 3.5 mmol/L (3.3-5.1); Sodium 142 mmol/L (135-145)
[2024-04-05 15:06] LABS: Appearance Urine Clear; Color Urine Dark Yellow; Glucose Urine UA Negative (Negative); Leukocyte Esterase Urine Small (1+) (Negative); Nitrite Urine Positive (Negative); Specific Gravity - Urine >= 1.030 (1.005-1.025); UMIC TRIGGER UACC YES; Urine Blood Negative (Negative); Urine Ketones Negative (Negative); Urine Protein Trace mg/dL (Neg-Trace)
[2024-04-05 15:14] LABS: Bacteria Urine 4+ (None Seen); Hyaline Casts Urine 0-2 /LPF (0-2); RBC Urine 0-2 /HPF (0-2); Squamous Epithelial Cell Urine >20 /HPF (0-2); UACC Culture Trigger YES; WBC Urine 21-50 /HPF (0-5)
[2024-04-06 08:02] LABS: Syphilis Screen Nonreactive (Nonreactive)
[2024-04-06 08:11] LABS: HIV AB/AG Nonreactive (Nonreactive); HIV Num 1 0.05 S/CO (0.00-0.99)
== END 2024-04-05 10:29 | disposition home or self-care (01) ==
LOC: HO.CHCLDS 10:28
PROVIDERS: Advanced Practice Midwife; Visit Provider Internal Medicine
DX: Z11.3 Encounter for screening for infections with a predominantly sexual mode of transmission (principal); N30.00 Acute cystitis without hematuria; R35.0 Frequency of micturition; R82.79 Other abnormal findings on microbiological examination of urine
CPT/HCPCS: 36415; 80048; 81001; 86780; 87086; 87088; 87186; 87389

== ENCOUNTER 2024-05-14 21:09 | Emergency (ER) | payer OTHER, MEDICAID, SELFPAY ==
[2024-05-14 21:20] VITALS: BP 106/79; PULSE 74; RESP 16; TEMP 36.4; O2SAT 100; BMI 34.3
--- NOTE | 2024-05-14 22:45 | ED_ITS ---
HPI - Female Genitourinary General Chief complaint: Urogenital-Female Stated complaint: UTI Time Seen by Provider: 05/14/24 22:35 Source: patient Mode of arrival: ambulatory Limitations: no limitations History of Present Illness ED Provider: Dr. Jewels Segal HPI Narrative: Patient comes to the emergency room complaining of dysuria for 1 day. Patient denies flank pain or hematuria. Patient has had UTIs in the past and states it feels similar. Related Data Home Medications ?Medication ?Instructions ?Recorded ?Confirmed cholecalciferol (vitamin D3) 25 25 mcg PO DAILY 10/22/20 10/22/20 mcg (1,000 unit) capsule (Vitamin D3) doxepin 50 mg capsule 50 mg PO DAILY 10/22/20 10/22/20 ferrous sulfate 324 mg (65 mg 324 mg PO DAILY 10/22/20 10/22/20 iron) tablet,delayed release lamotrigine 150 mg tablet 150 mg PO DAILY 10/22/20 10/22/20 multivitamin cap 10/22/20 olanzapine 20 mg tablet (Zyprexa) 20 mg PO DAILY 10/22/20 10/22/20 ondansetron 4 mg disintegrating 4 mg PO Q6H PRN Nausea And Vomiting 10/22/20 10/22/20 tablet pantoprazole 40 mg tablet,delayed 40 mg PO DAILY 10/22/20 10/22/20 release verapamil 40 mg tablet 40 mg PO DAILY 10/22/20 10/22/20 Previous Rx's ?Medication ?Instructions ?Recorded sulfamethoxazole 800 1 tab PO BID #14 tabs 10/22/20 mg-trimethoprim 160 mg tablet (Bactrim DS) nitrofurantoin 100 mg PO Q12H 7 days #14 caps 03/11/21 monohydrate/macrocrystals 100 mg capsule (Macrobid) tranexamic acid 650 mg tablet 650 mg PO BID 5 days #10 tabs 03/11/21 ferrous sulfate 325 mg (65 mg 325 mg PO TID 2 months #180 tabs 04/28/21 iron) tablet ondansetron 4 mg disintegrating 4 mg PO Q6-8H PRN nausea and 04/28/21 tablet vomiting #14 tabs oxycodone 5 mg tablet 5 mg PO Q4H PRN pain #14 tabs 04/28/21 morphine 15 mg immediate release 15 mg PO Q6H PRN pain 3 days #8 05/15/21 tablet tabs nitrofurantoin 100 mg PO BID 7 days #14 caps 05/15/21 monohydrate/macrocrystals 100 mg capsule (Macrobid) ondansetron 4 mg disintegrating 4 mg PO Q8H PRN nausea and 05/15/21 tablet vomiting #20 tabs pantoprazole 40 mg tablet,delayed 40 mg PO DAILY #30 tabs 05/28/21 release (Protonix) meclizine 25 mg tablet 25 mg PO BID PRN dizziness #14 tabs 07/27/22 nitrofurantoin 100 mg PO BID 5 days #10 caps 07/27/22 monohydrate/macrocrystals 100 mg capsule (Macrobid) lorazepam 1 mg tablet (Ativan) 1 mg PO BEDTIME PRN dizziness or 09/03/22 vertigo #7 tabs meclizine 25 mg tablet 25 mg PO TID PRN dizziness #20 tabs 09/03/22 cefuroxime axetil 500 mg tablet 500 mg PO Q12H 7 days #14 tabs 05/31/23 nitrofurantoin 100 mg PO Q12H 5 days #10 caps 09/02/23 monohydrate/macrocrystals 100 mg capsule (Macrobid) tranexamic acid 650 mg tablet 1,300 mg (2 x 650 mg) PO TID 5 10/12/23 days #30 tabs cefuroxime axetil 500 mg tablet 500 mg PO BID #13 tabs 12/30/23 clotrimazole-betamethasone 1 1 appl topical BID 1 week #45 grams 02/17/24 %-0.05 % topical cream cyclobenzaprine 10 mg tablet 10 mg PO TID PRN muscle spasm #20 02/23/24 tabs lidocaine 5 % topical gel 1 ea topical BID PRN pain #10 grams 02/23/24 cefuroxime axetil 500 mg tablet 500 mg PO BID #14 tabs 03/05/24 phenazopyridine 100 mg tablet 100 mg PO TID 6 doses #6 tabs 03/05/24 nitrofurantoin 100 mg PO Q12H 5 days #10 caps 05/14/24 monohydrate/macrocrystals 100 mg capsule (Macrobid) phenazopyridine 100 mg tablet 100 mg PO TID 6 doses #6 tabs 05/14/24 Allergies Allergy/AdvReac Type Severity Reaction Status Date / Time Penicillins Allergy Mild HIVES Verified 05/14/24 21:23 naproxen [NAPROXEN] Allergy Unknown BLEEDING Verified 05/14/24 21:23 penicillin V Allergy Unknown Hives Verified 05/14/24 21:23 Review of Systems Review of Systems: Constitutional : No Weight loss, No Fever, No Chills, No Night Sweats, No Fatigue, No Malaise ENT/Mouth : No Hearing loss, No Ear Pain, No Nasal Congestion, No Sinus Pain, No Hoarseness, No sore throat, No Rhinorrhea, No Swallowing Difficulty Eyes: No Eye Pain, No Swelling, No Redness, No Foreign Body, No Discharge, No Vision Changes Cardiovascular : No Chest Pain, No SOB, No Dyspnea on Exertion, No Orthopnea, No Edema, No Palpitations Respiratory : No Cough, No Sputum, No Wheezing, No Smoke Exposure, No Dyspnea Gastrointestinal : No Nausea, No Vomiting, No Diarrhea, No Constipation, No abdominal Pain, No Hematochezia, No Melena Genitourinary : Complaining of dysuria, no hematuria, no flank pain Musculoskeletal : No joint pain, No Myalgias, No Joint Swelling Skin : No Skin Lesions, No rash Neuro : No Weakness, No Numbness, No Paresthesias, No Loss of Consciousness, No Dizziness, No Headache Psych : No Anxiety/Panic, No Depression, No SI/HI/AH/VH, No Social Issues, Heme/Lymph: No Bruising, No Bleeding,No Lymphadenopathy Endocrine : No Polyuria, No Polydipsia, No Temperature Intolerance [facility] Past Medical History Medical History PTSD (post-traumatic stress disorder) Bipolar 1 disorder Anxiety delivery delivered Surgical History Gastric bypass status for obesity Tubal ligation status Social History Social History Alcohol intake: never Patient Tobacco Use Status: Never used Tobacco Substance Use Type: Marijuana Advance Directives: No Advance Directives Information Provided: Yes Do you have a plan to hurt others: No Plan Physical Exam Vital Signs: Vital Signs: Last Vital Signs Temp 97.6 F 05/14/24 21:20 Pulse 74 05/14/24 21:20 Resp 16 05/14/24 21:20 BP 106/79 05/14/24 21:20 Pulse Ox 100 05/14/24 21:20 O2 Del Method Room Air 05/14/24 21:20 BMI result Body Mass Index 34.3 Const: Other: Appearance: Alert. Oriented X3. No acute distress. Eyes: Pupils equal, round and reactive to light. ENT: Pharynx normal. Neck: Normal inspection. Neck supple. No lymph nodes noted. No crepitus CVS: Normal heart rate and rhythm. Pulses normal. Normal S1 and S2 Respiratory: No respiratory distress. Breath sounds normal. No Wheezing. No rales Abdomen: Soft and nontender. No rigidity. No distention. No flank pain Skin: Skin warm and dry. Normal skin color. Normal skin turgor. Extremities: No lower extremity edema. No Lacerations. No Rash Neuro: Oriented X 3. No motor deficit. No sensory deficit. Moving all extremities. No slurred speech. CN 2 through 12 grossly intact Psych: calm, cooperative, normal affect Medical Decision Making Medical Decision Making [facility] Narrative: My interpretation of urinalysis, negative for UTI. Patient has no fever chills or flank pain, pyelonephritis or sepsis not suspected. Patient was given the 1st dose of phenazopyridine in the ED. however, reviewing patient's previous urinary microbiology, we will medicate with Macrobid. Differential Diagnosis Differential Diagnoses: The differential diagnosis associated with the presentation includes Admission/Observation Consideration of admission/observation: Escalation of care including admission/observation considered Lab Data [facility] Lab Attestation statement: I reviewed the patient's lab results. Labs: Lab Results 05/14/24 Range/Units 23:06 Urine Color Yellow Urine Appearance Clear Urine pH 5.5 (5.0-9.0) Ur Specific [place] 1.020 (1.005-1.025) Urine Protein Negative (Neg-Trace) mg/dL Urine Glucose (UA) Negative (Negative) mg/dL Urine Ketones Trace (Negative) mg/dL Urine Blood Negative (Negative) Urine Nitrite Negative (Negative) Ur Leukocyte Esterase Trace H (Negative) Urine RBC 0-2 (0-2) /HPF Urine WBC 0-5 (0-5) /HPF Ur Squamous Epith Cells 6-10 (0-2) /HPF Urine Bacteria Trace (None Seen) Hyaline Casts 0-2 (0-2) /LPF Discharge Plan Discharge Clinical Impression: Urinary tract infection Patient Disposition: Home, Self-Care Instructions: Dysuria (ED) Additional Instructions: Please follow-up with your primary care physician tomorrow. If you have any wor sening or new symptoms, please return to the emergency room or call 911 Prescriptions: New phenazopyridine 100 mg tablet 100 mg PO TID Qty: 6 0RF nitrofurantoin monohyd/m-cryst [Macrobid] 100 mg capsule 100 mg PO Q12H 5 Days Qty: 10 0RF Rx Instructions: must administer with a meal/food No Action lamotrigine 150 mg Tablet 150 mg PO DAILY doxepin 50 mg Capsule 50 mg PO DAILY verapamil 40 mg Tablet 40 mg PO DAILY pantoprazole 40 mg Tablet,Delayed Release (Dr/Ec) 40 mg PO DAILY ondansetron 4 mg Tablet,Disintegrating 4 mg PO Q6H PRN (Reason: Nausea And Vomiting) multivitamin Capsule olanzapine [Zyprexa] 20 mg Tablet 20 mg PO DAILY cholecalciferol (vitamin D3) [Vitamin D3] 25 mcg (1,000 unit) Capsule 25 mcg PO DAILY ferrous sulfate 324 mg (65 mg iron) Tablet,Delayed Release (Dr/Ec) 324 mg PO DAILY sulfamethoxazole-trimethoprim [Bactrim DS] 800-160 mg tablet 1 tab PO BID Qty: 14 0RF nitrofurantoin monohyd/m-cryst [Macrobid] 100 mg capsule 100 mg PO Q12H 7 Days Qty: 14 0RF Rx Instructions: must administer with a meal/food tranexamic acid 650 mg tablet 650 mg PO BID 5 Days Qty: 10 0RF ondansetron 4 mg tablet,disintegrating 4 mg PO Q6-8H PRN (Reason: nausea and vomiting) Qty: 14 0RF oxycodone 5 mg tablet 5 mg PO Q4H PRN (Reason: pain) Qty: 14 0RF Rx Instructions: Patient may request partial fill ferrous sulfate 325 mg (65 mg iron) tablet 325 mg PO TID 60 Days Qty: 180 0RF morphine 15 mg tablet 15 mg PO Q6H PRN (Reason: pain) 3 Days Qty: 8 0RF ondansetron 4 mg tablet,disintegrating 4 mg PO Q8H PRN (Reason: nausea and vomiting) Qty: 20 0RF nitrofurantoin monohyd/m-cryst [Macrobid] 100 mg capsule 100 mg PO BID 7 Days Qty: 14 0RF Rx Instructions: must administer with a meal/food pantoprazole [Protonix] 40 mg tablet,delayed release (DR/EC) 40 mg PO DAILY Qty: 30 0RF meclizine 25 mg tablet 25 mg PO BID PRN (Reason: dizziness) Qty: 14 0RF nitrofurantoin monohyd/m-cryst [Macrobid] 100 mg capsule 100 mg PO BID 5 Days Qty: 10 0RF Rx Instructions: must administer with a meal/food meclizine 25 mg tablet 25 mg PO TID PRN (Reason: dizziness) Qty: 20 0RF lorazepam [Ativan] 1 mg tablet 1 mg PO BEDTIME PRN (Reason: dizziness or vertigo) Qty: 7 0RF nitrofurantoin monohyd/m-cryst [Macrobid] 100 mg capsule 100 mg PO Q12H 5 Days Qty: 10 0RF Rx Instructions: must administer with a meal/food tranexamic acid 650 mg tablet 1,300 mg PO TID 5 Days Qty: 30 0RF cefuroxime axetil 500 mg tablet 500 mg PO BID Qty: 13 0RF clotrimazole-betamethasone 1-0.05 % cream 1 appl topical BID 7 Days Qty: 45 0RF cefuroxime axetil 500 mg tablet 500 mg PO Q12H 7 Days Qty: 14 0RF cyclobenzaprine 10 mg tablet 10 mg PO TID PRN (Reason: muscle spasm) Qty: 20 0RF lidocaine 5 % gel 1 ea topical BID PRN (Reason: pain) Qty: 10 0RF cefuroxime axetil 500 mg tablet 500 mg PO BID Qty: 14 0RF phenazopyridine 100 mg tablet 100 mg PO TID Qty: 6 0RF Print Language: Hebrew
[2024-05-14 23:15] LABS: Appearance Urine Clear; Color Urine Yellow; Glucose Urine UA Negative (Negative); Leukocyte Esterase Urine Trace (Negative); Nitrite Urine Negative (Negative); PH 5.5 (5.0-9.0); UMIC TRIGGER UACC YES; Urine Blood Negative (Negative); Urine Ketones Trace mg/dL (Negative); Urine Protein Negative (Neg-Trace)
[2024-05-14 23:17] LABS: Bacteria Urine Trace (None Seen); Hyaline Casts Urine 0-2 /LPF (0-2); RBC Urine 0-2 /HPF (0-2); WBC Urine 0-5 /HPF (0-5)
[2024-05-14] MEDS: Nitrofurantoin Monohyd/M-Cryst 100 MG CAPSULE PO (23:42)
[2024-05-14] MEDS: Phenazopyridine HCL 100 MG TABLET PO (23:42)
[2024-05-14 23:43] VITALS: BP 116/72; PULSE 62; RESP 16; TEMP 36.6; O2SAT 97
[2024-05-14 23:48] VITALS: BP 116/72; PULSE 62; RESP 18; TEMP 36.6; O2SAT 97
== END 2024-05-14 23:49 | disposition home or self-care (01) ==
PROVIDERS: Emergency Provider Emergency Medicine; PCP Internal Medicine
DX: N39.0 Urinary tract infection, site not specified (principal)
CPT/HCPCS: 81001; 99283

== ENCOUNTER 2024-05-15 02:02 | Emergency (ER) | payer OTHER, SELFPAY ==
[2024-05-15 02:13] VITALS: BP 119/49; BP 119/58; PULSE 78; PULSE 90; RESP 16; TEMP 36.7; O2SAT 96; O2SAT 98; BMI 33.8
--- NOTE | 2024-05-15 03:21 | ED_ITS ---
HPI - Abdominal Pain General Chief Complaint: Abdominal Pain Stated Complaint: LOWER ABDOMINAL PAIN Time Seen by Provider: 05/15/24 03:20 Source: patient Mode of arrival: ambulatory Limitations: no limitations History of Present Illness ED Provider: bert VILLALBA narrative: Patient just discharged from here for acute cystitis went to [facility] and had burger within few minutes started vomiting vomited 3 times also had 1 loose bowels having diffuse cramping no other family member sick Related Data Home Medications ?Medication ?Instructions ?Recorded ?Confirmed cholecalciferol (vitamin D3) 25 25 mcg PO DAILY 10/22/20 10/22/20 mcg (1,000 unit) capsule (Vitamin D3) doxepin 50 mg capsule 50 mg PO DAILY 10/22/20 10/22/20 ferrous sulfate 324 mg (65 mg 324 mg PO DAILY 10/22/20 10/22/20 iron) tablet,delayed release lamotrigine 150 mg tablet 150 mg PO DAILY 10/22/20 10/22/20 multivitamin cap 10/22/20 olanzapine 20 mg tablet (Zyprexa) 20 mg PO DAILY 10/22/20 10/22/20 ondansetron 4 mg disintegrating 4 mg PO Q6H PRN Nausea And Vomiting 10/22/20 10/22/20 tablet pantoprazole 40 mg tablet,delayed 40 mg PO DAILY 10/22/20 10/22/20 release verapamil 40 mg tablet 40 mg PO DAILY 10/22/20 10/22/20 Previous Rx's ?Medication ?Instructions ?Recorded sulfamethoxazole 800 1 tab PO BID #14 tabs 10/22/20 mg-trimethoprim 160 mg tablet (Bactrim DS) nitrofurantoin 100 mg PO Q12H 7 days #14 caps 03/11/21 monohydrate/macrocrystals 100 mg capsule (Macrobid) tranexamic acid 650 mg tablet 650 mg PO BID 5 days #10 tabs 03/11/21 ferrous sulfate 325 mg (65 mg 325 mg PO TID 2 months #180 tabs 04/28/21 iron) tablet ondansetron 4 mg disintegrating 4 mg PO Q6-8H PRN nausea and 04/28/21 tablet vomiting #14 tabs oxycodone 5 mg tablet 5 mg PO Q4H PRN pain #14 tabs 04/28/21 morphine 15 mg immediate release 15 mg PO Q6H PRN pain 3 days #8 05/15/21 tablet tabs nitrofurantoin 100 mg PO BID 7 days #14 caps 05/15/21 monohydrate/macrocrystals 100 mg capsule (Macrobid) ondansetron 4 mg disintegrating 4 mg PO Q8H PRN nausea and 05/15/21 tablet vomiting #20 tabs pantoprazole 40 mg tablet,delayed 40 mg PO DAILY #30 tabs 05/28/21 release (Protonix) meclizine 25 mg tablet 25 mg PO BID PRN dizziness #14 tabs 07/27/22 nitrofurantoin 100 mg PO BID 5 days #10 caps 07/27/22 monohydrate/macrocrystals 100 mg capsule (Macrobid) lorazepam 1 mg tablet (Ativan) 1 mg PO BEDTIME PRN dizziness or 09/03/22 vertigo #7 tabs meclizine 25 mg tablet 25 mg PO TID PRN dizziness #20 tabs 09/03/22 cefuroxime axetil 500 mg tablet 500 mg PO Q12H 7 days #14 tabs 05/31/23 nitrofurantoin 100 mg PO Q12H 5 days #10 caps 09/02/23 monohydrate/macrocrystals 100 mg capsule (Macrobid) tranexamic acid 650 mg tablet 1,300 mg (2 x 650 mg) PO TID 5 10/12/23 days #30 tabs cefuroxime axetil 500 mg tablet 500 mg PO BID #13 tabs 12/30/23 clotrimazole-betamethasone 1 1 appl topical BID 1 week #45 grams 02/17/24 %-0.05 % topical cream cyclobenzaprine 10 mg tablet 10 mg PO TID PRN muscle spasm #20 02/23/24 tabs lidocaine 5 % topical gel 1 ea topical BID PRN pain #10 grams 02/23/24 cefuroxime axetil 500 mg tablet 500 mg PO BID #14 tabs 03/05/24 phenazopyridine 100 mg tablet 100 mg PO TID 6 doses #6 tabs 03/05/24 nitrofurantoin 100 mg PO Q12H 5 days #10 caps 05/14/24 monohydrate/macrocrystals 100 mg capsule (Macrobid) phenazopyridine 100 mg tablet 100 mg PO TID 6 doses #6 tabs 05/14/24 Allergies Allergy/AdvReac Type Severity Reaction Status Date / Time Penicillins Allergy Mild HIVES Verified 05/15/24 02:18 naproxen [NAPROXEN] Allergy Unknown BLEEDING Verified 05/15/24 02:18 penicillin V Allergy Unknown Hives Verified 05/15/24 02:18 Review of Systems Review of Systems Yes all other systems are reviewed and are negative PMFSH Past Medical History Medical History PTSD (post-traumatic stress disorder) Bipolar 1 disorder Anxiety delivery delivered Surgical History Gastric bypass status for obesity Tubal ligation status Social History Social History Alcohol intake: never Patient Tobacco Use Status: Never used Tobacco Substance Use Type: Marijuana Advance Directives: No Do you have a plan to hurt others: No Plan Physical Exam ED Vital Signs: Vital Signs - 24 hr 05/15/24 04:39 Temperature 97.5 F Pulse Rate 71 Respiratory Rate 16 Blood Pressure 117/75 Pulse Oximetry 96 Oxygen Delivery Method Room Air BMI result Body Mass Index 33.8 Appearance: Alert. Oriented X3. No acute distress. ENT: Pharynx normal. Oral Mucosa moist Neck: Normal inspection. Neck supple. CVS: Normal heart rate and rhythm. Pulses normal. Respiratory: No respiratory distress. Equal air entry bilateral, no wheezing/rales/rhonchi Abdomen: Soft and diffuse tenderness no rebound tenderness or guarding Bowel sounds are present, no mass palpable, no CVA tenderness Skin: Skin warm and dry. Normal skin color. Normal skin turgor. Extremities: No lower extremity edema. No calf tenderness Neuro: Oriented X 3. Medical Decision Making Medical Decision Making MDM Narrative: Patient with acute vomiting likely from the food questionable poisoning from the burger discharge patient home and patient feeling much better after Zofran and dicyclomine Medications Administered Discontinued Medications Generic Name Dose Route Start Last Admin Trade Name Freq PRN Reason Stop Dose Admin Dicyclomine HCl 20 mg 05/15/24 03:48 05/15/24 04:10 Dicyclomine Hcl 10 Mg Capsule PO 05/15/24 03:49 20 mg ONCE ONE Administration Ondansetron HCl 4 mg 05/15/24 03:25 05/15/24 03:43 Ondansetron Odt 4 Mg Tab.Isaías ZIMMERU 05/15/24 03:26 4 mg ONCE ONE Administration Discharge Plan Discharge Clinical Impression: Gastroenteritis Patient Disposition: Home, Self-Care Instructions: Acute Nausea and Vomiting (ED) Additional Instructions: Drink plenty of fluids Medicine for nausea as prescribed Follow with your PCP if not better Prescriptions: No Action lamotrigine 150 mg Tablet 150 mg PO DAILY doxepin 50 mg Capsule 50 mg PO DAILY verapamil 40 mg Tablet 40 mg PO DAILY pantoprazole 40 mg Tablet,Delayed Release (Dr/Ec) 40 mg PO DAILY ondansetron 4 mg Tablet,Disintegrating 4 mg PO Q6H PRN (Reason: Nausea And Vomiting) multivitamin Capsule olanzapine [Zyprexa] 20 mg Tablet 20 mg PO DAILY cholecalciferol (vitamin D3) [Vitamin D3] 25 mcg (1,000 unit) Capsule 25 mcg PO DAILY ferrous sulfate 324 mg (65 mg iron) Tablet,Delayed Release (Dr/Ec) 324 mg PO DAILY sulfamethoxazole-trimethoprim [Bactrim DS] 800-160 mg tablet 1 tab PO BID Qty: 14 0RF nitrofurantoin monohyd/m-cryst [Macrobid] 100 mg capsule 100 mg PO Q12H 7 Days Qty: 14 0RF Rx Instructions: must administer with a meal/food tranexamic acid 650 mg tablet 650 mg PO BID 5 Days Qty: 10 0RF ondansetron 4 mg tablet,disintegrating 4 mg PO Q6-8H PRN (Reason: nausea and vomiting) Qty: 14 0RF oxycodone 5 mg tablet 5 mg PO Q4H PRN (Reason: pain) Qty: 14 0RF Rx Instructions: Patient may request partial fill ferrous sulfate 325 mg (65 mg iron) tablet 325 mg PO TID 60 Days Qty: 180 0RF morphine 15 mg tablet 15 mg PO Q6H PRN (Reason: pain) 3 Days Qty: 8 0RF ondansetron 4 mg tablet,disintegrating 4 mg PO Q8H PRN (Reason: nausea and vomiting) Qty: 20 0RF nitrofurantoin monohyd/m-cryst [Macrobid] 100 mg capsule 100 mg PO BID 7 Days Qty: 14 0RF Rx Instructions: must administer with a meal/food pantoprazole [Protonix] 40 mg tablet,delayed release (DR/EC) 40 mg PO DAILY Qty: 30 0RF meclizine 25 mg tablet 25 mg PO BID PRN (Reason: dizziness) Qty: 14 0RF nitrofurantoin monohyd/m-cryst [Macrobid] 100 mg capsule 100 mg PO BID 5 Days Qty: 10 0RF Rx Instructions: must administer with a meal/food meclizine 25 mg tablet 25 mg PO TID PRN (Reason: dizziness) Qty: 20 0RF lorazepam [Ativan] 1 mg tablet 1 mg PO BEDTIME PRN (Reason: dizziness or vertigo) Qty: 7 0RF nitrofurantoin monohyd/m-cryst [Macrobid] 100 mg capsule 100 mg PO Q12H 5 Days Qty: 10 0RF Rx Instructions: must administer with a meal/food tranexamic acid 650 mg tablet 1,300 mg PO TID 5 Days Qty: 30 0RF cefuroxime axetil 500 mg tablet 500 mg PO BID Qty: 13 0RF clotrimazole-betamethasone 1-0.05 % cream 1 appl topical BID 7 Days Qty: 45 0RF phenazopyridine 100 mg tablet 100 mg PO TID Qty: 6 0RF nitrofurantoin monohyd/m-cryst [Macrobid] 100 mg capsule 100 mg PO Q12H 5 Days Qty: 10 0RF Rx Instructions: must administer with a meal/food cefuroxime axetil 500 mg tablet 500 mg PO Q12H 7 Days Qty: 14 0RF cyclobenzaprine 10 mg tablet 10 mg PO TID PRN (Reason: muscle spasm) Qty: 20 0RF lidocaine 5 % gel 1 ea topical BID PRN (Reason: pain) Qty: 10 0RF cefuroxime axetil 500 mg tablet 500 mg PO BID Qty: 14 0RF phenazopyridine 100 mg tablet 100 mg PO TID Qty: 6 0RF Print Language: [place]
[2024-05-15] MEDS: Ondansetron ODT 4 MG TAB.RAPDIS TRANSLINGU (03:43)
[2024-05-15] MEDS: Dicyclomine HCl 10 MG CAPSULE 20 MG PO (04:10)
[2024-05-15 04:39] VITALS: BP 117/75; PULSE 71; RESP 16; TEMP 36.4; O2SAT 96
[2024-05-15 05:18] VITALS: BP 117/75; PULSE 71; RESP 16; TEMP 36.4; O2SAT 96
== END 2024-05-15 05:15 | disposition home or self-care (01) ==
PROVIDERS: Emergency Provider Internal Medicine; PCP Internal Medicine
DX: K52.9 Noninfective gastroenteritis and colitis, unspecified (principal); R11.2 Nausea with vomiting, unspecified
CPT/HCPCS: 99283

== ENCOUNTER 2024-08-26 07:38 | Outpatient (REF) | payer OTHER, SELFPAY ==
--- OUTSIDE RECORDS SUMMARY | 2024-08-26 07:40 | XMS_ITS | Clinical Summary ---
Author Organization [facility] Address [address] [place] [address] Phone Care Team Providers Care Architectural Technician Name Role Phone Zaheer Madden MD Primary Care Provider [phone] Allergies Active Allergy Reactions Criticality Noted Date Comments Naproxen Other 12/02/2016 Stomach bleed with other medication Penicillins Hives 08/15/2005 Medications lamoTRIgine (LaMICtal) 150 mg tablet Take 150 mg by mouth daily. Active multivitamin (DAILY VITAMIN ORAL) Take by mouth. Active nystatin (MYCOSTATIN) 100,000 unit/gram powder Apply BID. 10/29/19 24 Active OLANZapine (ZyPREXA) 20 mg tablet Take 20 mg by mouth at bedtime. Active traZODone (DESYREL) 100 mg tablet Take 2 Tablets by mouth at bedtime. Active ferrous sulfate 324 mg (65 mg elemental iron) EC tabletIndicatio ns:Postsurgical malabsorption, not elsewhere classified TAKE 1 TABLET BY MOUTH TWICE A DAY 180 tablet 1 05/31/20 24 Active acetaminophen (TYLENOL) 500 mg tablet Take 2 tablets (1,000 mg total) by mouth every 6 (six) hours if needed for mild pain (60). 40 tablet 06/13/20 24 Active topiramate (Topamax) 100 mg tabletIndicatio ns:Obesity, Class I, BMI 30-34.9 Take 1 tablet (100 mg total) by mouth at bedtime. 90 each 07/12/19 25 025 Active phentermine 30 mg capsuleIndicati ons:Class 2 obesity due to excess calories with body mass index (BMI) of 39.0 to 39.9 in adult, unspecified whether serious comorbidity present Take 1 capsule (30 mg total) by mouth 1 (one) time each day before breakfast. Max Daily Amount: 30 mg 30 each 08/10/19 25 025 Active oxyCODONE (ROXICODONE) 5 mg immediate release tablet Take 1 tablet (5 mg total) by mouth every 6 (six) hours if needed for moderate pain for up to 4 doses. Max Daily Amount: 20 mg 12 tablet 06/13/20 24 025 Discontinued phentermine 30 mg capsuleIndicati ons:Class 2 obesity due to excess calories with body mass index (BMI) of 39.0 to 39.9 in adult, unspecified whether serious comorbidity present Take 1 capsule (30 mg total) by mouth 1 (one) time each day before breakfast. Max Daily Amount: 30 mg 30 each 07/07/19 25 025 Discontinued(Re order) Active Problems Problem Noted Date Diagnosed Date Class 2 obesity with body ma ss index (BMI) of 39.0 to 39.9 in adult 05/10/2024 Abdominal pannus 07/29/2017 Intertrigo 07/29/2017 Alcohol dependence 11/28/2008 Overview (05/10/2024): Per old records Anxiety 11/28/2008 Idiopathic scoliosis and kyphoscoliosis 08/15/19 06 Encounters Date Type Department Care Team Description 08/09/2024 Telephone Bariatric Surgery [facility] [address] [facility] [address] [place] [phone] Eli Greer MD Med Refill 07/26/2024 9:40 AM EST Office Visit Breast Care Center [facility] [address] [facility] [address] [place] [phone] Olu rFy MD S/P hysterectomy (Primary Dx) 07/12/2024 9:00 AM EST Office Visit Bariatric Surgery [facility] [address] [facility] [address] [place] [phone] Eli Greer MD Obesity, Class I, BMI 30-34.9 (Primary Dx); Postoperative intestinal malabsorption 06/27/2024 2:30 PM EST Office Visit [facility] [address] [facility] [address] [place] [phone] Olu Fry MD S/P hysterectomy (Primary Dx) 06/13/2024 7:33 AM EST Anesthesia Event [facility] [place] [address] [place] [phone] Matthew Rowan DO Couture, Alison, CRNA 06/13/2024 7:30 AM EST - 06/13/2024 10:30 AM EST Surgery [facility] [place] [address] [place] [phone] Olu Fry MD DAVINCI XI TOTAL LAP HYSTERECTOMY,BILATERA L SALPINGECTOMY,? REMOVAL OF ONE OR BOTH OVARIES & STAGING [74797 (CPT??)] 06/13/2024 5:48 AM EST - 06/13/2024 1:30 PM EST Hospital Encounter [facility] [place] [address] [place] [phone] Olu Fry MD Pelvic and perineal pain; Abnormal uterine and vaginal bleeding, unspecified; Leiomyoma of uterus, unspecified Discharge Disposition: Home or Self Care from Last 3 Months Immunizations Name Administration Dates Next Due Pfizer SARS-CoV-2 COVID-19, mRNA, LNP-S, preservative free 12/15/2020,11/24/2020 Td Tetanus diptheria (Tdvax) 7yo and older 08/15 Surgical History Surgery Date Site/Laterality Comments SECTION 11/2001 PROCEDURE: HISTORICAL DELIVERY SECTION 04/2006 PROCEDURE: GA DELIVERY ONLY SECTION 04/2011 PROCEDURE: GA DELIVERY ONLY TUBAL LIGATION PROCEDURE: HISTORICAL TUBAL LIGATION GASTRIC BYPASS 04/09/2020 PROCEDURE: GA GASTRIC RSTCV W/BYP W/SM INT RCNSTJ LIMIT ABSRPJ; COMMENT: sleeve HYSTEROSCOPY 07/17/2021 PROCEDURE: GA HYSTEROSCOPY BX ENDOMETRIUM&/POLYPC W/WO D&C; COMMENT: Exam under anesthesia, resection of prolapsing 7cm cervical leiomyoma, hysteroscopy, endometrial curettage OTHER SURGICAL HISTORY SLEEVE GASTROPLASTY GASTROSTOMY TUBE REVISION CHOLECYSTECTOMY CYSTOSCOPY ROBOTIC ASSISTED HYSTERECTOMY 06/13/2024 Robot assisted total laparoscopic hysterectomy, bilateral salpingectomy Medical History Medical History Date Comments Scoliosis (and kyphoscoliosi s), idiopathic 08/15/2005 DX:Scoliosis (and kyphoscoli osis), idiopathic Obesity, unspecified 08/15/2005 DX:Obesity, unspecified Venereal disease, unspecified DX :Venereal disease, unspecified; COMMENT: Chlamydia 07/16/05 Alcohol dependence ([facility]/HCC) 11/28/2008 DX: Alcohol dependence ([facility]); COMMENT: Per old records Anxiety 11/28/2008 DX:Anxiety Bipolar 1 disorder, depresse d, mild (CMS/[facility]) 2007 DX:Bipolar 1 disorder, depre ssed, mild ([facility]) Depression PTSD (post-traumatic stress disorder) Psychiatric illness manic bipola r Chronic pain disorder Anemia Family History Medical History Relation Name Comments Other: cancer kidney Father Diabetes Maternal Grandfather Hypertension Maternal Grandmother Other: polycystic kidney Mother bro ther also Other: thyroid Mother Breast cancer Neg Hx Cervical cancer Neg Hx Colon cancer Neg Hx Ovarian cancer Neg Hx Relation Name Status Comments Father Alive Maternal Grandfather Maternal Grandmother Mother Social History Tobacco Use Types Packs/Day Years Used Date Smoking Tobacco: Never Passive Smoke Exposure: Never Smokeless Tobacco: Never Tobacco Cessation:Counseling Given: Not Answered Alcohol Use Standard Drinks/Week Comments Yes 0.8 (1 standard drink = 0.6 oz p ure alcohol) occasionally Interpersonal Safety Answer Date Record ed Physical Abuse 06/13/2024 Verbal Abuse 06/13/2024 Comments No Sex and Gender Information Value Date Recorded Sex Assigned at Female 06/13/2024 5:44 AM EST Legal Sex Female 4:04 AM EST Gender Identity Female 06/13/2024 5:44 AM EST Sexual Orientation Straight 06/13/2024 5: 44 AM EST Obstetrics History Last Filed Vital Signs Vital Sign Reading Time Taken Comments Blood Pressure 112/79 07/26/2024 9:33 AM EST Pulse 80 07/26/2024 9:33 AM EST Temperature 37.1 ??C (98.7 ??F) 07/26/2024 9:33 AM ES T Respiratory Rate 18 06/13/2024 12:15 PM EST Oxygen Saturation 96% 06/13/2024 12:15 PM EST Inhaled Oxygen Concentration - - Weight 105 kg (232 lb) 07/12/2024 9:07 AM EST Height 175.3 cm (5' 9 ) 07/12/2024 9:07 AM EST Body Mass Index 34.26 07/12/2024 9:07 AM EST Plan of Treatment Upcoming Encounters Date Type Department Care Team (Late st Contact Info) Description 01/10/2025 8:45 AM EDT Office Visit Bariatric Surgery - [place] [address] [facility] [address] [place] [phone] Eli Greer MD [address] [facility] [address] [place] [address] Health Maintenance Due Date Last Done Comments Breast Cancer Screening 1982 Hepatitis B Vaccines (1 of 3 - 19+ 3-dose series) 2001 Social Influencers of Health Screening 06/14/2022 COVID-19 Vaccine ( season) 2024 06/24/2023, 07/11/2021, 12/15/2020, Additional history exists Influenza Vaccine (#1) 2024 Depression Screening 04/05/2025 04/05/2024 Cervical Cancer Screening: HPV 07/30/2025 07/30/2020 Cholesterol Screening (Lipid Panel) 06/24/2028 06/24/2023, 06/24/2023 DTaP,Tdap,and Td Vaccines (4 - Td or Tdap) 02/08/2030 02/09/2020, 04/17/2011, 08/15/2005 Hepatitis C Screening Completed 03/15/2021 HIV Screening Completed 04/05/2024, 04/05/2024 HIB Vaccines Aged Out No longer eligi ble based on patient's age to complete this topic HPV Vaccines Aged Out No longer eligi ble based on patient's age to complete this topic Hepatitis A Vaccines Aged Out No long er eligible based on patient's age to complete this topic IPV Vaccines Aged Out No longer eligi ble based on patient's age to complete this topic MMR Vaccines Aged Out No longer eligi ble based on patient's age to complete this topic Meningococcal ACWY Vaccine Aged Out N o longer eligible based on patient's age to complete this topic Meningococcal B Vacine Aged Out No lo nger eligible based on patient's age to complete this topic Pneumococcal Vaccine: Pediatrics (0 to 5 Years) and At-Risk Patients (6 to 64 Years) Aged Out No longer eligible based on patient's age to complete this topic RSV Immunization Patients Under 20 months Aged Out No longer eligible based on patient's age to complete this topic Varicella Vaccines Aged Out No longer eligible based on patient's age to complete this topic Procedures Procedure Name Priority Date/Time Associated Diagnosis Comments VITAMIN A Routine 07/14/2024 8:47 AM EST Postoperative intestinal malabsorption ZINC Routine 07/12/2024 9:35 AM EST Postoperative intestinal malabsorption VITAMIN D 25 HYDROXY Routine 07/12/2024 9:35 AM EST Postoperative intestinal malabsorption VITAMIN B12 Routine 07/12/2024 9:35 AM EST Postoperative intestinal malabsorption VITAMIN B1 Routine 07/12/2024 9:35 AM EST Postoperative intestinal malabsorption SELENIUM SERUM Routine 07/12/2024 9:35 AM EST Postoperative intestinal malabsorption IRON AND TIBC Routine 07/12/2024 9:35 AM EST Postoperative intestinal malabsorption FOLATE Routine 07/12/2024 9:35 AM EST Postoperative intestinal malabsorption COPPER, SERUM Routine 07/12/2024 9:35 AM EST Postoperative intestinal malabsorption CALCIUM Routine 07/12/2024 9:35 AM EST Postoperative intestinal malabsorption ALBUMIN Routine 07/12/2024 9:35 AM EST Postoperative intestinal malabsorption TISSUE EXAM Routine 06/13/2024 9:43 AM EST Pelvic and perineal pain Abnormal uterine and vaginal bleeding, unspecified Leiomyoma of uterus, unspecified TH AN ENDOTRACHEAL(NO CHARGE) Routine 06/13/2024 8:03 AM EST GA LAP SURG W TOTAL HYSTERECTOMY FOR UTERUS > THAN 250G W REM TUBE & OVARY 06/13/2024 7:33 AM EST Pelvic and perineal pain Abnormal uterine and vaginal bleeding, unspecified Leiomyoma of uterus, unspecified Case Notes XI,ERAS,23-HR BEDR/S VIA PHONE W/WEI MCCONNELL 05/10 11:32 CBC WITH AUTO DIFFERENTIAL STAT 06/13/2024 7:14 AM EST TYPE AND SCREEN Routine 06/13/2024 7:14 AM EST CBC AND DIFFERENTIAL STAT 06/13/2024 7:14 AM EST POC PREGANCY, URINE SCREENING Routine 06/13/2024 6:57 AM EST HIV SCREENING Routine 04/05/2024 LIPID PANEL Routine 06/24/2023 HEPATITIS C SCREENING Routine 03/15/2021 HPV Routine 07/30/2020 from Last 3 Months or Most Recently Relevant to Health Maintenance Results * Vitamin A (07/14/2024 8:47 AM EST) Pathologist [facility] Vitamin A 46 38 - 106 ug/dL 07/19/2024 6:41 AM EST [facility] Comment: This test was developed and the performance characteristics determined by [facility]. It has not been cleared or approved by the FDA. The laboratory is regulated under CLIA as qualified to perform high-complexity testing. This test is used for patient testing purposes. It should not be regarded as investigational or for research. Test performed at [facility], [address], [place], [place] ??[address] ? [phone] Hilaria Hurd MD, PhD - Vegetable Thinner Blood Venous blood specimen / Unknown Venipuncture / Unknown 07/14/2024 8:47 AM EST 07/14/2024 8:47 AM EST us Eli Greer MD LAB BLOOD ORDERABLES Final R esult [facility] [address] [place] [address] * (ABNORMAL) Iron and TIBC (07/12/2024 9:35 AM EST) Iron 47 40 - 150 mcg/dL LAB CHEMISTRY METHOD 07/12/2024 4:05 PM EST [facility] TIBC 358 250 - 450 mcg/dL LAB CHEMISTRY METHOD 07/12/2024 4:05 PM EST [facility] Iron Saturation 13(L) 15 - 50 % LAB CHEMISTRY METHOD 07/12/2024 4:05 PM EST [facility] Blood Venous blood specimen / Unknown Venipuncture / Unknown 07/12/2024 9:35 AM EST 07/12/2024 9:36 AM EST us Eli Greer MD LAB BLOOD ORDERABLES Final R esult [facility] [address] [place] [address], [place] [phone] * Copper, serum (07/12/2024 9:35 AM EST) Copper 1394 810 - 1990 ug/L 07/18/2024 9:45 AM EST [facility] Comment: Copper values may be elevated to twice the normal levels in . Elevated results may be due to sample collected in a non-certified trace element-free tube. This test was developed and the performance characteristics determined by [facility]. It has not been cleared or approved by the FDA. The laboratory is regulated under CLIA as qualified to perform high-complexity testing. This test is used for patient testing purposes. It should not be regarded as investigational or for research. Test performed at [facility], [address] [place], [place] ??[address] ? [phone] Hilaria Hurd MD, PhD - Vegetable Thinner Blood Venous blood specimen / Unknown Venipuncture / Unknown 07/12/2024 9:35 AM EST 07/12/2024 9:36 AM EST us Eli Greer MD LAB BLOOD ORDERABLES Final R esult Performing Organization Address City/[facility]/ZIP Co de Phone Number [facility] [address] [place] [address] * Zinc (07/12/2024 9:35 AM EST) Zinc 62 60 - 130 ug/dL 07/15/2024 11:41 AM EST [facility] Comment: Elevated results may be due to sample collected in a non-certified trace element-free tube. This test was developed and the performance characteristics determined by [facility]. It has not been cleared or approved by the FDA. The laboratory is regulated under CLIA as qualified to perform high-complexity testing. This test is used for patient testing purposes. It should not be regarded as investigational or for research. Test performed at [facility], [address] [place], [place] ??[address] ? [phone] Hilaria Hurd MD, PhD - Vegetable Thinner Blood Venous blood specimen / Unknown Venipuncture / Unknown 07/12/2024 9:35 AM EST 07/12/2024 9:36 AM EST us Eli Greer MD LAB BLOOD ORDERABLES Final R esult [facility] [address] [place] [address] * Selenium serum (07/12/2024 9:35 AM EST) Selenium 75 63 - 160 mcg/L 07/21/2024 10:41 PM EST [facility] Comment: (Note) This test was developed and its analytical performance characteristics have been determined by [facility]. It has not been cleared or approved by the FDA. This assay has been validated pursuant to the CLIA regulations and is used for clinical purposes. [facility] [address] [facility] [address] [facility] [address] Daniel Celaya MD, PhD Test Performed at: [facility] [address] [facility] [address], [address] [place], [place] ??[phone] ? I J Belia POLLOCK, PhD Blood Venous blood specimen / Unknown Venipuncture / Unknown 07/12/2024 9:35 AM EST 07/12/2024 9:36 AM EST Eli Greer MD LAB BLOOD ORDERABLES Final R esult Performing Organization Address City/[facility]/ZIP Co de Phone Number [facility] [address] [place] [address] * (ABNORMAL) Vitamin D 25 hydroxy (07/12/2024 9:35 AM EST) Pathologist [facility] Vit D, 25-Hydroxy 28.9(L) 30.0 - 80.0 ng/mL LAB CHEMISTRY METHOD 07/12/2024 3:24 PM EST [facility] Blood Venous blood specimen / Unknown Venipuncture / Unknown 07/12/2024 9:35 AM EST 07/12/2024 9:36 AM EST Eli Greer MD LAB BLOOD ORDERABLES Final R esult Performing Organization Address City/[facility]/ZIP Co de Phone Number [facility] [address] [place] [address], * Vitamin B1 (07/12/2024 9:35 AM EST) Pathologist [facility] Vitamin B1 Whole Blood 74 38 - 122 ug/L 07/18/2024 12:23 PM EST [facility] Comment: This test was developed and the performance characteristics determined by [facility]. It has not been cleared or approved by the FDA. The laboratory is regulated under CLIA as qualified to perform high-complexity testing. This test is used for patient testing purposes. It should not be regarded as investigational or for research. Test performed at [facility], [address] , [place], [place] ??[address] ? [phone] Hilaria Hurd MD, PhD - Vegetable Thinner Blood Venous blood specimen / Unknown Venipuncture / Unknown 07/12/2024 9:35 AM EST 07/12/2024 9:36 AM EST us Eli Greer MD LAB BLOOD ORDERABLES Final R esult Performing Organization Address City/[facility]/ZIP Co de Phone Number [facility] [address] [place] [address] * Folate (07/12/2024 9:35 AM EST) Pathologist [facility] Folate 3.8 2.8 - 17.0 ng/ml LAB CHEMISTRY METHOD 07/12/2024 4:05 PM EST [facility] Blood Venous blood specimen / Unknown Venipuncture / Unknown 07/12/2024 9:35 AM EST 07/12/2024 9:36 AM EST us Eli Greer MD LAB BLOOD ORDERABLES Final R esult [facility] [address] [place] [address], * Vitamin B12 (07/12/2024 9:35 AM EST) Vitamin B-12 282 250 - 900 pcg/mL LAB CHEMISTRY METHOD 07/12/2024 4:05 PM EST [facility] Blood Venous blood specimen / Unknown Venipuncture / Unknown 07/12/2024 9:35 AM EST 07/12/2024 9:36 AM EST us Eli Greer MD LAB BLOOD ORDERABLES Final R esult Performing Organization Address City/[facility]/ZIP Co de Phone Number [facility] [address] [place] [address], [place] [phone] * Calcium (07/12/2024 9:35 AM EST) Calcium 9.3 8.5 - 10.5 mg/dL LAB CHEMISTRY METHOD 07/12/2024 3:40 PM EST [facility] Blood Venous blood specimen / Unknown Venipuncture / Unknown 07/12/2024 9:35 AM EST 07/12/2024 9:36 AM EST Eli Greer MD LAB BLOOD ORDERABLES Final R esult Performing Organization Address [facility]/ZIP Co de Phone Number [facility] [address] [place] [address], [place] [phone] * Albumin (07/12/2024 9:35 AM EST) Pathologist [facility] Albumin 4.0 3.2 - 5.0 g/dL LAB CHEMISTRY METHOD 07/12/2024 3:40 PM EST [facility] Blood Venous blood specimen / Unknown Venipuncture / Unknown 07/12/2024 9:35 AM EST 07/12/2024 9:36 AM EST Eli Greer MD LAB BLOOD ORDERABLES Final R esult Performing Organization Address City/[facility]/ZIP Co de Phone Number [facility] [address] [place] [address], [place] [phone] * Tissue exam (06/13/2024 9:43 AM EST) Final Diagnosis Uterus, cervix and bilateral fallopian tubes: Proliferative endometrium No leiomyomata identified Anterior lower uterine segment scar consistent with prior section Acute endocervicitis Uterine serosal and tubal adhesions Benign paratubal serous cyst Fallopian tubes without atypia or neoplasm 06/14/2024 11:29 AM [facility] Gross Description A. Uterus, uterus cervix and bilateral fallopian tubes: Labeled uterus . Received in formalin is a 191 g, ce 10.3 x 7.2 x 6.8 cm uterus with attached cervix and bilateral fimbriated fallopian tubes. The serosa displays focal membranous adhesions on the posterior aspect, and diffuse surface disruption on the anterior aspect, but is otherwise medina-pink, smooth and glistening. The attached cervix is 4 cm in length by 3 cm in width. The ectocervical mucosa is medina-white, smooth and glistening with a central 0.6 x 0.3 cm ovoid os. The endocervical canal is 3.5 cm in length and has a medina-pink glistening endocervical mucosa. There is a 1 cm concavity in the anterior lower uterine segment with subjacent medina-white scarring, consistent with a prior . Cut surfaces in this area display some medina-white scar tissue but no mass or lesion is identified. The endometrial cavity is 5.5 cm in length by 3.8 cm in width. The endometrium is medina-pink to red, smooth and glistening. The myometrium is nsm-cuas-nde trabecular with some coarse trabeculations predominantly in the posterior wall. The myometrium measures up to 2.7 cm in thickness. The attached bilateral fimbriated fallopian tube each have a pink-purple serosa with some fibromembranous adhesions, and measure up to 3.5 x 0.5 cm. The left fallopian tube has a 1.5 cm paratubal cyst. The cyst contains a transparent watery fluid and has a smooth lining. Both fallopian tube have a wall measuring up to 0.3 cm and a pinpoint lumen. Rn Ostomy sections are submitted follows: 1, anterior cervix, one piece 2, posterior cervix, one piece 3, anterior lower uterine segment to include underlying scar tissue, one piece 4 and 5, full-thickness anterior endomyometrium (cassette four contains additional superficial section of anterior endometrium), two pieces and one piece, respectively 6 and 7, full-thickness posterior endomyometrium (cassette six contains additional superficial section of posterior endometrium), two pieces and one piece, respectively 8, left fallopian tube with paratubal cyst, two pieces 9, right fallopian tube, three pieces WALTER 06/14/2024 11:29 AM EST [facility] Disclaimer Unless otherwise specified, all tissue is 10% NB formalin fixed and paraffin embedded. 06/14/2024 11:29 AM EST [facility] Tissue Uterine structure / Unknown 06/13/2024 9:43 AM EST 06/13/2024 10:35 AM EST us Olu Fry MD LAB PATHOLOGY ORDERABLES Final R esult [facility] [address] [place] [address], * TH AN ENDOTRACHEAL(NO CHARGE) (06/13/2024 8:03 AM EST) Narrative Lima Anderson CRNA - 06/13/2024 8:03 AM EST Lima Anderson CRNA ? 06/13/2024 ??8:04 AM General Information and Staff Patient location during procedure: OR Resident/SLUBBER TENDER: Lima Anderson CRNA Performed: resident/SLUBBER TENDER/CAA and other anesthesia staff Performed by: Lima Anderson CRNA Authorized by: Matthew Rowan, DO ?? Intubation Additional Comments Intubation performed by [employer] [place] student. Dentition and oral mucosa as pre-op. Airway not difficult Urgency: elective Final Airway Details Successful airway: ETT Cuffed: yes Successful intubation technique: direct laryngoscopy Facilitating devices/methods: intubating stylet Blade: Khushboo Blade size: #3 ETT size (mm): 7.0 Cormack-Lehane Classification: grade I - full view of glottis Placement verified by: chest auscultation and capnometry Measured from: lips ETT to lips (cm): 22 Number of attempts at approach: 1Final airway type: endotracheal airway Indications and Patient Condition Indications for airway management: anesthesia and airway protection Spontaneous ventilation: present Sedation level: Yes Preoxygenated: yes Soft Tissue Damage: No Dentition Unchanged: Yes Patient position: sniffing MILS maintained throughout Mask difficulty assessment: 2 - vent by mask + OA or adjuvant +/- NMBA Matthew Rowan ANESTHESIA ORDERABLES Final Result * CBC auto differential (06/13/2024 7:14 AM EST) WBC 6.4 4.8 - 10.8 K/mcL LAB HEMETOLOGY METHOD 06/13/2024 7:32 AM [facility] RBC 4.20 3.80 - 4.80 M/mcL LAB HEMETOLOGY METHOD 06/13/2024 7:32 AM [facility] Hemoglobin 12.0 11.5 - 16.0 g/dL LAB HEMETOLOGY METHOD 06/13/2024 7:32 AM [facility] Hematocrit 35.5 35.0 - 47.0 % LAB HEMETOLOGY METHOD 06/13/2024 7:32 AM [facility] MCV 84.7 79.0 - 98.0 FL LAB HEMETOLOGY METHOD 06/13/2024 7:32 AM [facility] MCH 28.6 27.0 - 32.0 pcg LAB HEMETOLOGY METHOD 06/13/2024 7:32 AM [facility] MCHC 33.8 32.0 - 37.0 g/dL LAB HEMETOLOGY METHOD 06/13/2024 7:32 AM [facility] RDW 12.7 11.0 - 15.0 % LAB HEMETOLOGY METHOD 06/13/2024 7:32 AM [facility] Platelets 294 130 - 400 K/mcL LAB HEMETOLOGY METHOD 06/13/2024 7:32 AM [facility] MPV 9.0 7.0 - 11.0 FL LAB HEMETOLOGY METHOD 06/13/2024 7:32 AM [facility] NRBC 0.0 <1.0 % LAB HEMETOLOGY METHOD 06/13/2024 7:32 AM [facility] NRBC Absolute 0.00 <0.10 K/mcL LAB HEMETOLOGY METHOD 06/13/2024 7:32 AM [facility] Neutrophils Relative 51.3 % LAB HEMETOLOGY METHOD 06/13/2024 7:32 AM [facility] Lymphocytes Relative 38.5 % LAB HEMETOLOGY METHOD 06/13/2024 7:32 AM [facility] Monocytes Relative 8.0 % LAB HEMETOLOGY METHOD 06/13/2024 7:32 AM [facility] Eosinophils Relative 1.6 % LAB HEMETOLOGY METHOD 06/13/2024 7:32 AM [facility] Basophils Relative 0.3 % LAB HEMETOLOGY METHOD 06/13/2024 7:32 AM [facility] Immature Granulocytes Relative 0.3 % LAB HEMETOLOGY METHOD 06/13/2024 7:32 AM [facility] Neutrophils Absolute 3.29 1.50 - 7.00 K/mcL LAB HEMETOLOGY METHOD 06/13/2024 7:32 AM [facility] Lymphocytes Absolute 2.47 1.00 - 5.00 K/mcL LAB HEMETOLOGY METHOD 06/13/2024 7:32 AM [facility] Monocytes Absolute 0.51 0.20 - 1.00 K/mcL LAB HEMETOLOGY METHOD 06/13/2024 7:32 AM [facility] Eosinophils Absolute 0.10 0.00 - 0.50 K/mcL LAB HEMETOLOGY METHOD 06/13/2024 7:32 AM [facility] Basophils Absolute 0.02 0.00 - 0.20 K/mcL LAB HEMETOLOGY METHOD 06/13/2024 7:32 AM [facility] Immature Granulocytes Absolute 0.02 0.00 - 0.03 K/[facility] LAB HEMETOLOGY METHOD 06/13/2024 7:32 AM EST [facility] Blood Venous blood specimen / Unknown Venipuncture / Unknown 06/13/2024 7:14 AM EST 06/13/2024 7:25 AM EST us Olu Fry MD LAB BLOOD ORDERABLES Final Resul t Performing Organization Address City/[facility]/ZIP Co de Phone Number [facility] [address] [place] [address], [place] [phone] * Type and screen (06/13/2024 7:14 AM EST) ABO Group O 06/13/2024 9:37 AM EST [facility] Rh Type Positive 06/13/2024 9:37 AM EST [facility] Antibody Screen Negative 06/13/2024 9:37 AM EST [facility] Blood Venous blood specimen / Unknown Venipuncture / Unknown 06/13/2024 7:14 AM EST 06/13/2024 7:25 AM EST us Olu Fry MD LAB BLOOD BANK TEST ORDERABLES F inal Result Performing Organization Address [facility] de Phone Number [facility] [address] [place] [address], [place] [phone] * POC , urine NO CHARGE screening manually resulted (06/13/2024 6:57 AM EST) HCG, Ur POC Negative Negative POC hCG Int QC Pass? Yes Yes Urine Urine specimen obtained by clean catch procedure / Unknown 06/13/2024 6:57 AM EST us Olu Fry MD POINT OF CARE TEST ENTER/EDIT OR DERABLES Final Result * Hm HIV Screening (04/05/2024) [facility] HIV Screening Abstracted [facility] Provider HEALTH MAINTENANCE Final Result * Lipid panel (06/24/2023) [facility] LDL/HDL Ratio 0 Comment:No Interpretation, A bstracted Triglycerides 0 mg/dL Comment:No Interpretation, A bstracted Cholesterol 0 mg/dL Comment:No Interpretation, A bstracted HDL 0 mg/dL Comment:No Interpretation, A bstracted LDL Cholesterol 0 mg/dL Comment:No Interpretation, A bstracted Blood Venous blood specimen / Unknown [facility] Provider LAB BLOOD ORDERABLES Joana l Result * Hepatitis C Screening (03/15/2021) [facility] Hepatitis C Screening Abstracted [facility] Provider HEALTH MAINTENANCE Final Result * Cervical Cancer Screening: HPV (07/30/2020) [facility] Cervical Cancer Screening: HPV Negative, Abstracted [facility] Provider HEALTH MAINTENANCE Final Result from Last 3 Months or Most Recently Relevant to Health Maintenance Insurance [facility] MEDICAID Advance Directives Documents on File Type Date Recorded Patient Rn Ostomy Expl anation Advance Directives and Livin g Will 06/14/2024 8:46 AM * Full Code - Default (Latest Code Status on File) Date Activated Date Inactivated Comments 06/13/2024 6:31 AM 06/13/2024 4:07 PM This is orde r is used when code status has not been discussed with the patient, or code status is otherwise unknown/unconfirmed To update the patient's code status, place a code status order. Do not modify or discontinue any currently active code status orders. Care Teams Architectural Technician Relationship Specialty Start Date End Date Zaheer Madden MD [address] [place] [address] PCP - General Internal Medicine 01/26/18
--- OUTSIDE RECORDS SUMMARY | 2024-08-26 07:40 | XMS_ITS | Clinical Summary ---
Author Organization [employer] Address [address] [place] [address] Care Team Providers Care Sheet Rock Layer Name Role Phone Zaheer Madden MD Primary Care Provider [phone] Allergies Active Allergy Reactions Criticality Noted Date Comments Naproxen Hives Low 08/01/2022 Onion 03/05/2018 Other reaction(s): Hives / Skin Rash Penicillins Hives Low 08/01/2022 Medications OLANZapine (ZyPREXA) 20 MG tablet Take 1 tablet by mouth at bedtime. 2 Active lamoTRIgine (LaMICtal) 150 MG tablet Take 1 tablet by mouth in the morning. 2 Active ferrous sulfate 324 MG EC tablet take 1 tablet by oral route daily Active cetirizine (ZyrTEC) 10 MG tabletIndicatio ns:Vertigo Take 1 tablet (10 mg) by mouth in the morning. 30 tablet 5 3 Active Multiple Vitamin (Daily-Maricel Multivitamin) tablet TAKE 1 TABLET BY MOUTH EVERY DAY 90 tablet 1 3 Active miconazole (Micotin) 2 % cream Apply topically 2 times daily. Apply to affected area after washing and drying per instructions. 198 g 2 4 Active D3-1000 25 MCG (1000 UT) capsule TAKE 1 CAPSULE BY MOUTH EVERY DAY OTC 90 capsule 3 4 Active pantoprazole (ProtoNix) 40 MG EC tablet TAKE 1 TABLET BY MOUTH EVERY DAY 90 tablet 1 4 Active Active Problems Problem Noted Date Diagnosed Date Breast cancer screening by mammogram 05/26/2023 Assessment & Plan (05/26/2023 11:40 AM EST): -patient agreeable to start screening -advised of the need for further testing if abnormalities noted Cervical cancer screening 05/26/2023 Assessment & Plan (05/26/2023 11:52 AM EST): -pap with HPV in 3 years per [facility] -mammogram ordered for screening Menorrhagia with regular cycle 05/26/2023 Vaginal odor 05/26/2023 Assessment & Plan (05/26/2023 11:36 AM EST): -sure swab for BV and yeast sent for testing -discontinue use of vagisil wash; simply use water for vaginal cleansing -will call with results and treat if necessary Encounter for screening for infections with a predominantly sexual mode of transmission 05/26/2023 Assessment & Plan (05/26/2023 11:41 AM EST): -new partner since last screening -sureswab collected and sent for testing Excessive cerumen in both ear canals 08/05/2022 Assessment & Plan (08/05/2022 5:44 PM EST): Patient concern of ear cerumen affecting her vertigo. Reports symptoms have improved once she start her meclizine. Normal ear examination, recommended f/u with PCP as needed Fibroid 08/01/2022 Assessment & Plan (05/26/2023 11:43 AM EST): -s/p myomectomy. Still notes heavy menses -no sign of cervical fibroid on exam today. 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 06 Encounters Date Type Department Care Team Description 07/27/2024 10:00 AM EST Office Visit [facility] [address] [place] [address] Zaheer Madden MD Fibroid (Primary Dx); Class 2 obesity due to excess calories without serious comorbidity with body mass index (BMI) of 37.0 to 37.9 in adult; Bipolar disorder in full remission, most recent episode unspecified type ([facility]/HCC); Recurrent UTI 07/27/2024 Travel 07/18/2024 Patient Outreach [facility] [address] [place] [address] Zaheer Madden MD Pre-visit Planning ([facility] unable to reach [facility]) from Last 3 Months Immunizations Name Administration Dates Next Due Pfizer Covid-19 Vaccine 12+ 06/24/2023,0 07/11/2021,12/15/2020,2020 TD (adult), 2 Lf tetanus tox oid, preservative free, adsorbed 08/15/2005 Tdap 02/09/2020,04/17/2011 Family History Medical History Relation Name Comments Heart attack Father Hypertension Father Diabetes type II Maternal Grandfather Relation Name Status Comments Father Maternal Grandfather Social History Tobacco Use Types Packs/Day Years Used Date Smoking Tobacco: Never Passive Smoke Exposure: Never Smokeless Tobacco: Never Tobacco Cessation:Counseling Given: Not Answered Alcohol Use Standard Drinks/Week Comments Not Currently 0 (1 standard drink = 0.6 oz pur e alcohol) Depression Answer Date Recorded Patient Health Questionnaire-9 Score 2 07/27/2024 Patient Health Questionnaire-9 Score 2 07/27/2024 Last PHQ-9: Questionnaire Data Not on file 0 07/27/2024 Housing Stability Answer Date Recorded What is your housing situation today? I do not have housing (Staying with others, in a hotel, in a skilled nursing, living outside on the street, on a beach, in a car, or in a park 06/16/[address] you li ve. Do you have problems with any of the following? Mold 06/16/2023 Food Insecurity Answer Date Recorded Within the past 12 months, y ou worried that your food would run out before you got money to buy more: Never True 06/16/2023 Within the past 12 months,th e food you bought just didn't last and you didn't have enough money to get more: Never True 06/2023 Transportation Answer Date Recorded In the past 12 months, has l ack of transportation kept you from medical appts, meetings, work or from getting things needed for daily living? No 06/16/2023 Utilities Answer Date Recorded In the past 12 months, has t he electric, gas, oil or water company threatened to shut off services in your home? No 06/16/2023 Depression Answer Date Recorded Patient Health Questionnaire-2 Score 0 07/27/2024 Comments No Sex and Gender Information Value Date Recorded Sex Assigned at Female 05/05/2022 10:18 AM EDT Legal Sex Female 10:18 AM EDT Gender Identity Female 05/05/2022 10:18 AM EDT Sexual Orientation Straight 05/05/2022 10 :18 AM EDT Last Filed Vital Signs Vital Sign Reading Time Taken Comments Blood Pressure 127/73 07/27/2024 9:50 AM EST Pulse 100 07/27/2024 9:50 AM EST Temperature 36.6 ??C (97.9 ??F) 07/27/2024 9:50 AM ES T Respiratory Rate 20 07/27/2024 9:50 AM EST Oxygen Saturation 98% 07/27/2024 9:50 AM EST Inhaled Oxygen Concentration - - Weight 108 kg (237 lb) 07/27/2024 9:50 AM EST Height 170.2 cm (5' 7 ) 07/27/2024 9:50 AM EST Body Mass Index 37.12 07/27/2024 9:50 AM EST Plan of Treatment Health Maintenance Due Date Last Done Comments Hepatitis B Vaccines (1 of 3 - 19+ 3-dose series) 2001 COVID-19 Vaccine ( season) 2024 06/24/2023, 07/11/2021, 12/15/2020, Additional history exists Influenza Vaccine (#1) 2024 SDOH Screening 06/16/2024 06/16/2023 Family Planning (PISQ) 10/25/2024 10/26/2023 Alcohol/Substance Use Screening 07/27/2025 07/27/2024 Depression Screening 07/27/2025 07/27/2024, 07/27/19 Tobacco Screening 07/27/2025 07/27/2024 Mammogram 08/24/2025 08/24/2023 Cervical Cancer Screening 05/26/2026 HPV/Cotest 05/26/2026 05/26/2023, 02/05, 02/28/2020 Pap Smear 05/26/2026 05/26/2023, 02/05, 02/28/2020 Lipid Panel 06/24/2028 06/24/2023 DTaP/Tdap/Td Vaccines (3 - Td or Tdap) 02/08/2030 02/09/2020, 04/17/2011, 08/15/2005 Zoster Vaccines (1 of 2) 02/20/2032 RSV Patients and Patients Aged 60 years or older (1 - 1-dose 75+ series) 2057 Hepatitis C Screening Completed 03/15/2021, 020 HIV Screening Completed 04/05/2024, 03/06, 03/01/2020 HIB Vaccines Aged Out No longer eligi [...] patient's age to complete this topic Meningococcal Vaccine Aged Out No kt mar[place] eligible based on patient's age to complete this topic Pneumococcal Vaccine: Pediatrics (0 to 5 Years) and At-Risk Patients (6 to 49) Years) Aged Out No longer eligible based on patient's age to complete this topic RSV under 20 months Aged Out No longe r eligible based on patient's age to complete this topic Rotavirus Vaccines Aged Out No longer eligible based on patient's age to complete this topic Procedures Procedure Name Priority Date/Time Associated Diagnosis Comments HIV 1/2 ANTIGEN/ANTIBODY, FOURTH GENERATION W/RFL Routine 04/05/2024 10:31 AM EDT Encntr screen for infections w sexl mode of transmiss BI MAMMOGRAM SCREENING TOMOSYNTHESIS BILATERAL Routine 08/24/2023 8:15 AM EST LIPID PANEL, STANDARD Routine 06/24/2023 12:06 PM EST Obesity (BMI 30-39.9) HPV MRNA E6/E7 REFLEX TO HPV 16, 18/45 Routine 05/26/2023 10:45 AM EST PAP SMEAR Routine 05/26/2023 10:45 AM EST [facility] HISTORICAL HEPATITIS C AB W/REFL TO HCV RNA, QN, PCR Routine 03/15/2021 9:03 AM EDT from Last 3 Months or Most Recently Relevant to Health Maintenance Results * HIV-1/2 Antigen and Antibodies, Fourth Generation, with Reflexes (04/05/2024 10:31 AM EDT) HIV AB/AG Nonreactive Nonreactive [facility] Comment:HIV-1 p24 Ag and/or HIV-1/HIV-2 Ab not detected.A test result that is nonreactive does not exclude thepossibility of exposure to or infection with HIV-1 and/orHIV-2. Nonreactive results in this assay for individualswith prior exposure to HIV-1 and/or HIV-2 may be due toantigen and antibody levels that are below the limit ofdetection of this assay.The [employer] HIV Ag/Ab Combo assay result andsupplemental assay results should be interpreted inconjunction with the patient's clinical presentation,history and other laboratory results. If the results areinconsistent with clinical evidence, additional testing issuggested to confirm the result. Blood Venous blood specimen / Unknown 04/05/2024 10:31 AM EDT 04/05/2024 2:13 PM EDT us Brenda Dodd CNM LAB BLOOD ORDERABLES Joana irvin Result [facility] [address] [place] [phone] * BI Mammogram Screening Tomosynthesis Bilateral (08/24/2023 8:15 AM EST) Anatomical Region Laterality Modality Breast Bilateral Mammography 08/24/2023 8:15 AM EST Narrative 09/06/2023 10:57 AM EST ? [facility] ? [address] ?[place] [address] ? Mammography Report ? Signed ? Patient: Raucci,Gina A ?MR#: [id number] ?? [id number] ? : 1980 ?Acct:[id number] ? Age/Sex: 43 / F ?ADM Date: 08/24/23 ? Loc: HO.MAMMO ? Attending Dr: Brenda Dodd CNM ? Ordering Physician: BRENDA DODD CNM ?Results: 1 ?? Negative ? Date of Service: 08/24/23 ?Follow Up: 1 Year From Orig ?? inal Mammogram ? Procedure(s): MM tomosynthesis screening BI ?? Accession Number(s): [id number] ? cc: Zaheer Madden MD; BRENDA DODD CNM ? EXAMINATION: ?? MM SCREENING DIGITAL BREAST TOMOSYNTHESIS, BILATERAL ? CLINICAL INFORMATION: ? Screening. Asymptomatic. ? COMPARISON: ?? Mammography: This is a baseline mammogram. ? TECHNIQUE: ?? Digital breast tomosynthesis is performed in both the craniocaudal and ?? mediolateral oblique views along with computer-aided detection (CAD). ?? Synthesized 2D images are generated from the tomosynthesis. ? FINDINGS: ?? There are scattered areas of fibroglandular density (ACR BI-RADS breast ?? composition Category b). ? There are no significant masses, abnormal calcifications, or other ?? abnormalities. ? MM/MM tomosynthesis screening BI ?? IMPRESSION: ?? No mammographic evidence of malignancy. ? ASSESSMENT: ? BI-RADS BI-RADS 1 - Negative ? RECOMMENDATION: ?? Routine annual mammography screening. ? 1 year F/U ? This examination should not preclude the clinical evaluation of a ?? suspicious palpable abnormality. ? This patient's information was entered into a reminder system with a ?? target due date for their next mammogram. ? Dictated By: ?Jannie Floyd MD ? Signed By: ?<Electronically signed by Jannie Floyd MD in OV> ? 09/06/23 1053 ? DD/ 0815 ? TD/TT: ? Recreation Center Director: ? Procedure Note Donreynater, Image - 09/06/2023 [place] [facility] [address] [place], [place] [address] Mammography Report Signed Patient: Gina Uriostegui AMR#: [id number] : 1980Acct:[id number] Age/Sex: 43 / FADM Date: 08/24/23 Loc: HO.MAMMO Attending Dr: Brenda LIAO Ordering Physician: BRENDA DODDesults: 1 Negative Date of Service: 08/24/23Follow Up: 1 Year From Orig inal Mammogram Procedure(s): MM tomosynthesis screening BI Accession Number(s): [id number] cc: Zaheer Madden MD; BRENDA DODD CNM EXAMINATION: MM SCREENING DIGITAL BREAST TOMOSYNTHESIS, BILATERAL CLINICAL INFORMATION: Screening. Asymptomatic. COMPARISON: Mammography: This is a baseline mammogram. TECHNIQUE: Digital breast tomosynthesis is performed in both the craniocaudal and mediolateral oblique views along with computer-aided detection (CAD). Synthesized 2D images are generated from the tomosynthesis. FINDINGS: There are scattered areas of fibroglandular density (ACR BI-RADS breast composition Category b). There are no significant masses, abnormal calcifications, or other abnormalities. MM/MM tomosynthesis screening BI IMPRESSION: No mammographic evidence of malignancy. ASSESSMENT: BI-RADS BI-RADS 1 - Negative RECOMMENDATION: Routine annual mammography screening. 1 year F/U This examination should not preclude the clinical evaluation of a suspicious palpable abnormality. This patient's information was entered into a reminder system with a target due date for their next mammogram. Dictated By: Jannie Floyd MD Signed By: <Electronically signed by Jannie Floyd MD in OV> 09/06/23 1053 DD/ 0815 TD/TT: Recreation Center Director: Brenda Dodd [facility] IM BI PROCEDURES Edited Result - Final * Lipid Panel, Standard (06/24/2023 12:06 PM EST) Triglycerides 102 <150 mg/dL [facility] Comment:Desirable Triglyceri de: less than 150 mg/dLBorderline High Triglyceride 150-199 mg/dLHigh Triglyceride: 200-499 mg/dLVery High Triglyceride: greater than or equal to 5OO mg/dL Cholesterol 155 <200 mg/dL [facility] Comment:Desirable Cholestero l: less than 200 mg/dLBorderline High Cholesterol: 200-239 mg/dLHigh Cholesterol: greater than 239 mg/dL LDL Cholesterol Calculated 84 <100 mg/dL [facility] Comment:Desirable LDL: less than 100 mg/dLNear Optimal/Above Optimal LDL: 110- 129 mg/dLBorderline High LDL: 130-159 mg/dLHigh LDL: 160-189 mg/dLVery High LDL: greater than or equal to 190 mg/dL HDL Cholesterol 51 >40 mg/dL [facility] Comment:Desirable HDL: great er than 40 mg/dL Note: This HDL assay may give artificially low results in patients with liver disease. Blood Venous blood specimen / Unknown 06/24/2023 12:06 PM EST 06/24/2023 2:00 PM EST us Zaheer Madden MD LAB BLOOD ORDERABLES Final Result [facility] [address] [place] [address] [phone] * HPV mRNA E6/E7 w/Reflex to HPV Genotypes 16, 18/45 (05/26/2023 10:45 AM EST) HPV nRNA E6/E7 Not Detected Not Detected [facility] Comment:Methodology: Transcr iption-Mediated AmplificationThis assay detects E6/E7 viral messenger RNA (mRNA) from 14high-risk HPV types (16,18,31,33,35,39,45,51,52,56,58,59,66,68).Cervical sources are required for HPV testing.If a vaginal source from a patient who has had atotal hysterectomy with removal of cervix wassubmitted, please contact the testing laboratoryfor alternative testing options.For additional information, please refer tohttp://education.[employer]/faq/CPH685k5(This link if provided for information/educational purposes only.)THIS TEST WAS PERFORMED AT:[facility] [place] [phone] HOLMAN MD HPV mRNA E6/E7 [facility] HPV 16 RNA [facility] HPV 18/45 RNA [facility] 05/26/2023 10:4 5 AM EST 05/27/2023 8:30 AM EST us Brenda Dodd CNM LAB CYTOLOGY ORDERABLES F inal Result [facility] [address] [place] [phone] * Pap Smear (05/26/2023 10:45 AM EST) 05/26/2023 10:4 5 AM EST 05/27/2023 8:30 AM EST Narrative [facility] - 06/09/2023 7:58 AM EST ----- ------- Name: Gina Uriostegui ?Age/Sex: 43/F ? : 1980 Unit#: [id number] ?? Attend Dr: BRENDA DODD CNM ?Re05/26/23 ?Status: DEP REF ? Location: HO.CHCLNP ? Disch: ? ----- ------- SPEC : [id number] ?RECD: 05/27/23 ? STATUS: ??SOUT ? REQ NUM: [id number] ? JOE: 05/26/23-1044 ? SUBM DR: BRENDA DODD CNM ? ENTERED: ??05/27/23 ?SP TYPE: Pap Smr ?OTHR : ? ORDERED: ??Pap Smear ? Interpretation ?? Satisfactory for evaluation. ?? No endocervical cells seen. ?? Mild inflammation. ?? Negative for intraepithelial lesion or malignancy. ?HPV mRNA E6/E7: ?NOT DETECTED ? This assay detects E6/E7 viral messenger RNA (mRNA) from 14 high-risk HPV types (16, 18, ?? 31, 33, 35, 39, 45, 51, 52, 56, 58, 59, 66, 68) ?? HPV testing performed by [facility], [place], [place]. ??See reference laboratory ?? portion of the EMR for entire report. ?Clinical Information LMP: Unknown date Previous PAP test: 2020, WNL Other history: 2019, NIL HPV ? Material Received ?? ThinPrep-Vaginal/Cervical ----- ------- Signed (signature on file) SLIME Panchal (ASC) 06/09/23 0758 ? ----- ------- ? END OF REPORT ? Brenda Dodd CNM LAB CYTOLOGY ORDERABLES F inal Result Performing Organization Address [facility]/ZIP Co de Phone Number [facility] [address] [place] [address] [phone] * HEPATITIS C AB W/REFL TO HCV RNA, QN, PCR (03/15/2021 9:03 AM EDT) HEPATITIS C ANTIBODY NON-REACT [facility] NON-REACT [facility] INDEX 0.01 <1.00 [facility] Comment: ?? HCV antibody was non-reactive. There is no laboratory ?? evidence of HCV infection. ?? In most cases, no further action is required. However, if recent HCV exposure is suspected, a test for HCV RNA (test code 67654) is suggested. ?? For additional information please refer to http://education.[employer]/faq/TXT21m4 (This link is being provided for informational/ educational purposes only.) ?? 03/15/2021 9:03 AM EDT Brenda Dodd CNM HISTORICAL/NON ORDERABLE LABS Final Result Performing Organization Address [facility] Co de Phone Number [facility] [address] from Last 3 Months or Most Recently Relevant to Health Maintenance Insurance [facility] STANDARD [facility] Care Teams Sheet Rock Layer Relationship Specialty Start Date End Date Zaheer Madden MD [address] [place] [phone] PCP - General Internal Medicine 07/06/18
--- OUTSIDE RECORDS SUMMARY | 2024-08-26 07:40 | XMS_ITS | Continuity of Care Document ---
Author Organization [facility], [place] - inst Address [address] [place] [phone] Care Team Providers Care Glazier Apprentice Name Role Phone HIM CCA OTHER Assessment Encounter Date Assessment Date Assessment LastModified by Organization Details LastModified Time 08/14/2024 08/14/2024 I have reviewed and agree with the assessment and plan as documented by the timber hand. I provided real time medical direction for this encounter and was immediately available to provide additional phone based assistance as needed. History as noted by timber hand. 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 She is using tylenol as well as pseudoephedrine without much relief. Pt denies any CP or SOB. No documented fever. Pt has no history of asthma or COPD. On exam, pt appears well, no distress. Vitals normal. Lungs clear. Rapid Covid and Flu negative. Impression: Pt with Viral URI with symptoms x3 days. She appears well with normal vitals and clear lungs. Rapid Flu and Covid negative. Pt instructed to continue to use tylenol and pseudoephedrine prn. I prescribe guaifenesin for pt to use for her symptoms as well. Pt told to call and f/u with her primary care team or [facility] of not improving significantly after 1 week and to seek medical attention right away in the ED with any worsening or new symptoms, which are reviewed with her. btils Not available 08/14/2024 11:58:13 Plan of Treatment Reminders Order Date Submit Date Provider Last Modified By Organization Details Last Modified Time Details Appointments None recorded. Lab rapid SARS CoV 2 Ag, QL IA, respiratory specimen 2024 025 b[facility]s [facility], [address] [place] [address], [phone], 11:49:18 rapid flu (A+B) 2024 025 btils [facility], [address] [place] [address], [phone], 11:49:18 Referral None recorded. Procedures None recorded. Surgeries None recorded. Imaging None recorded. Medication Orders guaifenesin ER 600 mg tablet, extended release 12 hr 2024 025 [facility][id number], [address] [place], [address], 11:50:42 Patient TargetsNo targets recorded. Patient InstructionsNo instructions recorded. Reason for Referral None Reported. Results Created Date Observation Date Name Description Value Unit Range Abnormal Flag Note LastModifiedBy Organization Detail LastModifiedTime 08/14/1908/14/2024 rapid flu (A+B) Flu negati ve Not Available [facility] ed [address] [place] [address], [phone], 08/14/2024 11:48:41 08/14/19 25 08/14/2024 rapid SARS CoV 2 Ag, QL IA, respi rator y speci men rapid SARS CoV 2 Ag, QL IA, respiratory specimen negati ve Not Available [facility] ed [address] [place] [address], [phone], 08/14/2024 11:48:40 Result Notes None recorded. Medical Equipment None Reported. Allergies Allergen ID Allergen Name Allergen Category Reaction Reaction Severity Criticality Documentation Date Start Date Code Code System Note Provider Name and Address Organization Details Recorded Time 24645 Product containin g penicilli n (product) medicatio n Not available Not available Not available 08/13/2024 26709 8001 SN[facility]ED [facility]36 83639 Naprosyn medicatio n Not available Not available Not available 08/13/2024 2 RxNorm Not Available [facility] Medications Name Sig Start Date Stop Date Status Note LastModified by Organization Details LastModified Time cyclobenzapr ine 10 mg tablet TAKE 1 TABLET ORALLY 3 TIMES A DAY NEEDED FOR MUSCLE SPASM active Not Available Not Available No t Available lamotrigine 150 mg tablet TAKE 1 TABLET BY MOUTH EVERY DAY active Not Available Not Available No t Available cefpodoxime 200 mg tablet TAKE 1 TABLET BY MOUTH TWICE A DAY active Not Available Not Available No t Available senna 8.6 mg tablet TAKE 1 TABLET (8.6 MG TOTAL) BY MOUTH 1 (ONE) TIME EACH DAY FOR 5 DAYS. active Not Available Not Available Not Available phentermine 15 mg capsule TAKE 1 CAPSULE BY MOUTH EVERY DAY IN THE MORNING active Not Available Not Available No t Available acetaminophe n 500 mg tablet TAKE 2 TABLETS (1,000 MG TOTAL) BY MOUTH EVERY 6 (SIX) HOURS IF NEEDED FOR MILD PAIN active Not Available Not Available No t Available phentermine 30 mg capsule TAKE 1 CAPSULE (30 MG TOTAL) BY MOUTH ONCE DAILY BEFORE BREAKFAST MAX DAILY AMOUNT: 30 MG active Not Available Not Available No t Available lidocaine-pr ilocaine 2.5 %-2.5 % topical cream APPLY TO THE AFFECTED AREA(S) DAILY DIRECTED active Not Available Not Available No t Available methenamine hippurate 1 gram tablet TAKE 1 TABLET (1 G) BY MOUTH 2 TIMES DAILY. active Not Available Not Available No t Available methocarbamo l 750 mg tablet TAKE 1 TABLET (750 MG) BY MOUTH 4 TIMES DAILY FOR 10 DAYS. active Not Available Not Available No t Available trazodone 100 mg tablet TAKE 2 TABLET BY MOUTH EVERY NIGHT AT BEDTIME active Not Available Not Available No t Available phenazopyrid ine 100 mg tablet TAKE 1 TABLET BY MOUTH THREE TIMES A DAY FOR 6 DOSES active Not Available Not Available Not Available econazole nitrate 1 % topical cream TO APPLY TO THE AFFECTED AREA 2 TIMES A DAY. active Not Available Not Available No t Available cephalexin 500 mg capsule TAKE 1 CAPSULE BY MOUTH TWICE A DAY active Not Available Not Available No t Available pantoprazole 40 mg tablet,delay ed release TAKE 1 TABLET BY MOUTH EVERY DAY active Not Available Not Available No t Available clotrimazole -betamethaso ne 1 %-0.05 % topical cream APPLY TOPICALLY 2 TIMES A DAY FOR 1 WEEK active Not Available Not Available N ot Available nystatin 100,000 unit/gram topical powder APPLY TO AFFECTED AREA TWICE A DAY active Not Available Not Available No t Available cefuroxime axetil 500 mg tablet TAKE 1 TABLET BY MOUTH TWICE A DAY active Not Available Not Available No t Available ondansetron 4 mg disintegrati ng tablet DISSOLVE 1 TABLET UNDER TONGUE EVERY 6 TO 8 HOURS NEEDED FOR NAUSEA AND VOMITING active Not Available Not Available No t Available topiramate 100 mg tablet TAKE 1 TABLET BY MOUTH EVERYDAY AT BEDTIME active Not Available Not Available No t Available Hibiclens 4 % topical liquid APPLY 1 BOTTLE TOPICALLY ONCE. FOLLOW PREOP INSTRUCTION FROM DOCTOR'S OFFICE. active Not Available Not Available No t Available olanzapine 20 mg tablet TAKE 1 TABLET BY MOUTH EVERYDAY AT BEDTIME active Not Available Not Available No t Available oxycodone 5 mg tablet PLEASE SEE ATTACHED FOR DETAILED DIRECTIONS active Not Available Not Available N ot Available Vitamin D3 25 mcg (1,000 unit) capsule TAKE 1 CAPSULE BY MOUTH EVERY DAY OTC active Not Available Not Available Not Available topiramate 50 mg tablet TAKE 1 TABLET BY MOUTH EVERY EVENING active Not Available Not Available No t Available nitrofuranto in monohydrate/ macrocrystal s 100 mg capsule TAKE 1 CAPSULE BY MOUTH EVERY 12 HOURS FOR 5 DAYS MUST ADMINISTER WITH A MEAL/FOOD active Not Available Not Available No t Available ferrous sulfate 324 mg (65 mg iron) tablet,delay ed release TAKE 1 TABLET BY MOUTH TWICE A DAY active Not Available Not Available No t Available tranexamic acid 650 mg tablet TAKE 2 TABLETS ORALLY 3 TIMES A DAY FOR 5 DAYS active Not Available Not Available N ot Available guaifenesin ER 600 mg tablet, extended release 12 hr Take 1 tablet every 12 hours by oral route as needed for 10 days, for cough, congestion. 2024 active Not Available Not Available Not Avai lable Vitals Date Recorded Body temperature Oxygen saturation Oxygen saturation in Arterial blood by Pulse oximetry Body height Heart rate Body weight Respiratory rate Systolic blood pressure Diastolic blood pressure Provider Name and Address Organization Details Last Updated DateTime 5 98.1 [degF] 97 % 97 % 175.26 cm 88 /min 789792. 896 g 19 /min 121 mm[Hg] 83 mm[Hg] Not Available [facility] - production 5 11:44:45 Social History None recorded. Functional Status None recorded. Mental Status None recorded. Family History Nothing Reported. Medical History No medical history recorded. Gynecological HistoryNo gynecological history recorded. Obstetrics History GPAL:G 0 P 0 0 0 0 Past Encounters Encounter ID Performer Location Encounter Start Date Encounter Closed Date Diagnosis/Indication Diagnosis SNOMED-CT Code Diagnosis ICD10 Code Diagnosis Note [id number] Donta Nelson MD Main - [address] [phone] 08/14/2024 11:44:39 08/15/2024 15:21:22 Viral upper respiratory tract infection 790706380 J06.9 Health Concerns Section Related Observation LastModified by Organization Detai ls LastModified Time None Recorded Concern Status LastModified by Organization Details LastModified Time None Recorded Payers Encounter Date Sequence Insurance Name Policy Number Policy Christie Covered Member ID Christie Member ID Guarantor Name 08/14/2024 1 [facility] - DOS ON OR AFTER 2022 - DUAL ELIGIBLE - CUSTODIAL OPTIONS AND ONE CARE (MEDICARE REPLACEMENT/ADV ANTAGE - HMO) Gina Uriostegui [id number] Gina Uriostegui Notes Date Note Type Note Provider Name and Address Organization Details Recorded Time 08/14/2024 text/html This was a supervised home visit with timber hand Gina Uriostegui. [facility] Nurse Triage Notes (Samuel Snell - RN): Patient Reports: Cough, fever greater than 2 days ; Sputum increase ; Cough; Pain with inspirationDenies: Increased work of breathing/labored ? with or without fever Unable to speak in full sentences without distress Discoloration of skin -cyanosis Needs to sleep sitting up, can? t catch breath Shortness of breath in setting of confusion Lower extremity swelling History of asthma, increased use of inhaler COPD Shortness of breath with exertion Chief Complaints: Fever/chills, Cough, Common cold symptomsPMH: Bipolar DisorderPMH Reviewed at 08/13/2024 - 20:55Allergies Reviewed at 08/13/2024 - 20:55Comments: Statistical Technician verified the Pt.'s name//address and phone number. Education provided on the response time and the Pt. was advised to monitor reported s/s and seek emergency treatment if needed Pt reports feeling unwell with a cough/cold and congestion - Fever - Ear pain - Headache - Denies SOB - Denies sore throat and body aches - S/S for 2 days - Taking over the counter cold medication and cough drops - Wellness check requested - Agrees to a visit on 08/14. 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 Rapid influenza antigen (11:25:51)Flu: -Attachments uploaded as part of this test result can be found under Documents section. .................. .................. .................. .................. .................. .................. .................. ............... Ironing Worker Note From Liam Galvin: Pt chief complaint today of cold/ flu symptoms. Pt states that for the past x3 days prior to her [facility] appointment today she has been feeling general body aches, runny nose, dry cough and sinus pain. Pt also notes loss of appetite, Pt state that she has been using Sudafed pe as well as Tylenol 500 mg with very minimal relief. Pt also notes to be feeling feverish with chills. 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 Pt denies any cp, sob, NVD, dizziness or blurry vision. Allergies are noted. Non neural focal exam, afebrile, vitals WNL for the pt. Pt lungs are clear on auscultation. Benign abdominal assessment. No lower extremity edema noted. Negative covid/ flu test. Pt notes sinus pressure to be at a 3/10, upon palpation pt notes to have relief of pain. Pt is CAOX4 with a GCS of [address] [facility] Donta nelson consulted. Pt sent a prescription for guaifenesin to help with cough and congestion. Pt informed to call her pcp for a possible follow up. Pt also educated on red flag S&S and informed to call emergency services if any present. .................. .................. .................. .................. .................. .................. .................. ............... [facility] Consulted: Donta Nelson .................. .................. .................. .................. .................. .................. .................. ............... Disposition: Fulfilled Donta Nelson MD [address] [facility],[address], [place], [phone], [employer] 08/14/2024 12:36:07 OBGyn Episode No OBEpisode recorded.
--- OUTSIDE RECORDS SUMMARY | 2024-08-26 07:40 | XMS_ITS | Encounter Summary ---
Author Organization [employer] Address [address] [facility] [address] [place] [address] Care Team Providers Care Vp Mobile Products Name Role Phone Zaheer Madden MD Primary Care Provider [phone] Reason for Visit * Reason Comments extended office visit Encounter Details Date Type Department Care Team ([facility] st Contact Info) Description 07/27/2024 10:00 AM EST Office Visit [facility] [address] [place], [place] [phone] Zaheer Madden MD [address] [place] [address] Fibroid (Primary Dx); Class 2 obesity due to excess calories without serious comorbidity with body mass index (BMI) of 37.0 to 37.9 in adult; Bipolar disorder in full remission, most recent episode unspecified type (CMS/HCC); Recurrent UTI Social History Tobacco Use Types Packs/Day Years Used Date Smoking Tobacco: Never Passive Smoke Exposure: Never Smokeless Tobacco: Never Alcohol Use Standard Drinks/Week Comments Not Currently [...] with others, in a hotel, in a long term, living outside on the street, on a [...] Orientation Straight 05/05/2022 10 :18 AM EDT documented as of this encounter Last Filed Vital Signs Vital Sign Reading [...] Mass Index 37.12 07/27/2024 9:50 AM EST documented in this encounter Progress Notes * Zaheer Madden MD - 07/27/2024 10:00 AM EST Subjective Patient ID: Gina Uriostegui is a 44 y.o. female who presents for extended office visit. HPI Patient is here for her extended annual visit. Status post hysterectomy. Doing well. No more vaginal bleed reported. No abdominal pain Status post weight loss surgery. Weight has been stable. Appetite is controlled. Patient is compliant with her vitamin supplementation. Patient Active Problem List Diagnosis Fibroid Obesity Idiopathic scoliosis and kyphoscoliosis Bipolar disorder (CMS/HCC) Anxiety Backache Abdominal pannus Alcohol dependence (CMS/HCC) Excessive cerumen in both ear canals Breast cancer screening by mammogram Cervical cancer screening Menorrhagia with regular cycle Vaginal odor Encounter for screening for infections with a predominantly sexual mode of transmission Current Outpatient Medications on File Prior to Visit Medication Sig Dispense Refill cetirizine (ZyrTEC) 10 MG tablet Take 1 tablet (10 mg) by mouth in the morning. 30 tablet 5 D3-1000 25 MCG (1000 UT) capsule TAKE 1 CAPSULE BY MOUTH EVERY DAY OTC 90 capsule 3 econazole nitrate 1 % cream To apply to the affected area 2 times a day. 30 g 0 ferrous sulfate 324 MG EC tablet take 1 tablet by oral route daily lamoTRIgine (LaMICtal) 150 MG tablet Take 1 tablet by mouth in the morning. lidocaine-prilocaine (Emla) 2.5-2.5 % cream APPLY TO THE AFFECTED AREA(S) DAILY DIRECTED 30 g 3 meclizine (Antivert) 25 MG tablet TAKE 1 TABLET BY MOUTH TWICE A DAY NEEDED FOR DIZZINESS methocarbamol (Robaxin) 750 MG tablet Take 1 tablet (750 mg) by mouth 4 times daily for 10 days. 40tablet 0 miconazole (Micotin) 2 % cream Apply topically 2 times daily. Apply to affected area after washing and drying per instructions. 198 g 2 Multiple Vitamin (Daily-Maricel Multivitamin) tablet TAKE 1 TABLET BY MOUTH EVERY DAY 90 tablet 1 OLANZapine (ZyPREXA) 20 MG tablet Take 1 tablet by mouth at bedtime. pantoprazole (ProtoNix) 40 MG EC tablet TAKE 1 TABLET BY MOUTH EVERY DAY 90 tablet 1 rizatriptan (Maxalt) 5 MG tablet PLEASE SEE ATTACHED FOR DETAILED DIRECTIONS traZODone (Desyrel) 50 MG tablet TAKE 1 TABLET BY MOUTH AT BEDTIME START AFTER FINISHING DOXEPIN [DISCONTINUED] methenamine hippurate (Hiprex) 1 g tablet Take 1 tablet (1 g) by mouth 2 times daily. 60 tablet 11 No current facility-administered medications on file prior to visit. Allergies Allergen Reactions Onion Other reaction(s): Hives / Skin Rash Naproxen Hives Penicillins Hives Review of Systems Constitutional: Negative for activity change, appetite change, chills and diaphoresis. HENT: Negative for dental problem, drooling, ear discharge, ear pain and hearing loss. Eyes: Negative for pain, discharge and itching. Respiratory: Negative for cough, choking and chest tightness. Cardiovascular: Negative for chest pain and leg swelling. Gastrointestinal: Negative for blood in stool and diarrhea. Genitourinary: Negative for difficulty urinating, dyspareunia, dysuria, enuresis, flank pain, frequency and genital sores. Musculoskeletal: Negative for arthralgias, gait problem and joint swelling. Skin: Negative for pallor. Neurological: Negative for dizziness, seizures, speech difficulty, light- headedness and numbness. Psychiatric/Behavioral: Negative for behavioral problems, confusion and decreased concentration. Objective BP 127/73 (BP Location: Left arm, Patient Position: Sitting, BP Cuff Size: Adult) Pulse 100 Temp 97.9 ??F (36.6 ??C) (Oral) Resp 20 Ht 5' 7 (1.702 m) Wt 237 lb (108 kg) SpO2 98% BMI 37.12 kg/m?? Physical Exam Constitutional: General: She is not in acute distress. Appearance: Normal appearance. She is not ill-appearing, toxic-appearing or diaphoretic. HENT: Head: Normocephalic. Right Ear: Tympanic membrane normal. There is no impacted cerumen. Left Ear: Tympanic membrane normal. There is no impacted cerumen. Nose: Nose normal. No congestion or rhinorrhea. Mouth/Throat: Mouth: Mucous membranes are moist. Eyes: General: No scleral icterus. Right eye: No discharge. Left eye: No discharge. Pupils: Pupils are equal, round, and reactive to light. Cardiovascular: Rate and Rhythm: Normal rate and regular rhythm. Heart sounds: No murmur heard. No friction rub. No gallop. Pulmonary: Effort: Pulmonary effort is normal. No respiratory distress. Breath sounds: No stridor. No wheezing, rhonchi or rales. Chest: Chest wall: No tenderness. Abdominal: General: There is no distension. Palpations: Abdomen is soft. There is no mass. Tenderness: There is no abdominal tenderness. There is no right CVA tenderness or left CVA tenderness. Musculoskeletal: General: Normal range of motion. Cervical back: Normal range of motion. Neurological: General: No focal deficit present. Mental Status: She is alert and oriented to person, place, and time. Psychiatric: Mood and Affect: Mood normal. Assessment/Plan Diagnoses and all orders for this visit: Fibroid Comments: Status post hysterectomy. Patient is doing well. CBC ordered to assess if her anemia is resolved. Orders: - CBC auto differential; Future Class 2 obesity due to excess calories without serious comorbidity with body mass index (BMI) of 37.0 to 37.9 in adult Comments: To continue with phentermine and topiramate. Orders: - Lipid Panel, Standard; Future Bipolar disorder in full remission, most recent episode unspecified type (CMS/HCC) Comments: In remission No change to the current management. Patient is to follow-up with her psychiatrist. Orders: - Lipid Panel, Standard; Future Recurrent UTI Comments: Resolved. No recent episode. Educated on the need to keep herself well-hydrated documented in this encounter Plan of Treatment Scheduled Orders Name Type Priority Associated Diagnoses Orde r Schedule Lipid Panel, Standard Lab Routine Class 2 obesity due to excess calories without serious comorbidity with body mass index (BMI) of 37.0 to 37.9 in adult Bipolar disorder in full remission, most recent episode unspecified type (CMS/HCC) Expected: 07/27/2024 (Approximate), Expires: 07/27/2025 CBC auto differential Lab Routine Fibroid Expected: 07/27/2024 (Approximate), Expires: 07/27/2025 documented as of this encounter Visit Diagnoses Diagnosis Fibroid- Primary Leiomyoma of uterus, unspecified Class 2 obesity due to excess calories without serious comorbidity with body mass index (BMI) of 37.0 to 37.9 in adult Bipolar disorder in full remission, most recent episode unspecified type (CMS/HCC) Recurrent UTI Urinary tract infection, site not specified documented in this encounter Additional Health Concerns Assessment Noted Time PHQ-9 Depression Total Score: 2 07/27/19 25 10:08 AM EST documented as of this encounter Care Teams Vp Mobile Products Relationship Specialty Start Date End Date Zahere Madden MD [address] [place] [phone] PCP - General Internal Medicine 07/06/18 documented as of this encounter
--- OUTSIDE RECORDS SUMMARY | 2024-08-26 07:40 | XMS_ITS | Encounter Summary ---
Author Organization [employer] Address [address] [facility] [address] [place] [address] Care Team Providers Care Robotic Welder Name Role Phone Zaheer Madden MD Primary Care Provider [phone]- [phone] Reason for Visit * Reason Onset Date Comments Reschedule 08/11/2023 Encounter Details Date Type Department Care Team (Late st Contact Info) Description 08/11/2023 Telephone [facility] [address] [place] [address] Zaheer Madden MD [address] [place] [address] Reschedule Social History Tobacco Use Types Packs/Day Years Used Date Smoking Tobacco: Never Passive Smoke Exposure: Never Smokeless Tobacco: Never Alcohol Use Standard Drinks/Week Comments Not Currently 0 (1 standard drink = 0.6 oz pur e alcohol) Housing Stability Answer Date Recorded What is your housing situation today? I do not have housing (Staying with others, in a hotel, in a [place] [facility] [place], living outside on the street, on a [...] off services in your home? No 06/16/2023 Comments No Sex and Gender Information Value Date Recorded Sex Assigned at Female 05/05/2022 10:18 AM EDT Legal Sex Female 10:18 AM EDT Gender Identity Female 05/05/2022 10:18 AM EDT Sexual Orientation Straight 05/05/2022 10 :18 AM EDT documented as of this encounter Miscellaneous Notes * Telephone Encounter - Zeynep Jenkins - 08/11/2023 8:38 AM EST Tc from pt requesting r/s 08/11/23 Derm appt. documented in this encounter Plan of Treatment Not on file documented as of this encounter Visit Diagnoses Not on filedocumented in this encounter Care Teams Robotic Welder Relationship Specialty Start Date End Date Zaheer Madden MD [address] [place] [phone] PCP - General Internal Medicine 07/06/18 documented as of this encounter
--- OUTSIDE RECORDS SUMMARY | 2024-08-26 07:40 | XMS_ITS | Encounter Summary ---
Author Organization [employer] Address [address] [facility] [address] [place] [address] Care Team Providers Care Form Tamper Name Role Phone Zaheer Madden MD Primary Care Provider [phone] Encounter Details Date Type Department Care Team (Latest Contact Info) Description 07/27/2024 Travel Social History Tobacco Use Types Packs/Day Years [...] with others, in a hotel, in a senior living, living outside on the street, on a [...] AM EDT documented as of this encounter Plan of Treatment Not on file documented as of this encounter Visit Diagnoses Not on filedocumented in this encounter Additional Health Concerns Assessment Noted Time PHQ-9 Depression Total Score: 2 07/27/19 25 10:08 AM EST documented as of this encounter Care Teams Form Tamper Relationship Specialty Start Date End Date Zaheer Madden MD [address] [place] [address] PCP - General Internal Medicine 07/06/18 documented as of this encounter
--- OUTSIDE RECORDS SUMMARY | 2024-08-26 07:40 | XMS_ITS | Encounter Summary ---
Author Organization [employer] Address 75 [facility] 7 [place] [address] Care Team Providers Care Head Grower Name Role Phone Zaheer Madden MD Primary Care Provider +1- [phone] Reason for Visit * Reason Onset Date Comments Nurse Triage 10/12/2023 Encounter Details Date Type Department Care Team (Late st Contact Info) Description 10/12/[address] [facility]INE [address] [place] [address] Zaheer Madden MD [address] [place] [address] Nurse Triage Social History Tobacco Use Types Packs/Day Years Used Date Smoking Tobacco: Never Passive Smoke Exposure: Never Smokeless Tobacco: Never Alcohol Use Standard Drinks/Week Comments Not Currently 0 (1 standard drink = 0.6 oz pur e alcohol) Housing Stability Answer Date Recorded What is your housing situation today? I do not have housing (Staying with others, in a hotel, in a detention, living outside on the street, on a [...] encounter Miscellaneous Notes * Telephone Encounter - Tammie Mcclure RN - 10/13/2023 10:44 AM EDT Returned call to pt regarding triage below. Pt states going to ED last night and does not need apptsooner than scheduled 10/26/23 with CNM. Pt to return PRN. * Telephone Encounter - Shawna Ibrahim LPN - 10/12/2023 11:30 AM EDT Triage call returned to patient who reports that she is having ongoing issues with heavy menses. Menses lasting 7-8 days with yesterday noted large clots and bled thru pad. No excessive bleeding today. Reports she had a history of fibroid. Last note from Nic reviewed with patient and she is not interested in an IUD but would take a pill . Has reported dizziness with active menses. No fainting and no acute abdominal cramping. Using pads, not soaking more than 2 per hour at present. Disposition reviewed and patient is at work until 830 pm tonight. Is only available tomorrow afternoon.No appts open with Nic PETERSON for afternoon tomorrow. ASK/Nic PETERSON 10/26/[address] [facility]. Patient in agreement with plan. Team tasked to update patient if afternoon appt becomes available tomorrow due to cancellations. Reviewed with patient home care recommendations, reasons to call back and symptoms that require immediate evaluation in UC or ER. Pt verbalized understanding and agrees. Protocol Used: Vaginal Bleeding - Abnormal (Adult) Protocol-Based Disposition: See in Office or Video Visit Today Override (Final) Disposition: See in Office or Video Visit within 2 Weeks Override Reason: No appointments available Override Notes: Advised to seek ED if bleeding continues to be heavy Video visit not offered Positive Triage Question: * Patient wants to be seen * All higher-acuity triage questions were negative Care Advice Discussed: * Iron and Anemia * Reasons To Call Back - Severe abdomen pain or lightheadedness occurs - Bleeding worsens - You become worse * Telephone Encounter - Zeynep Jenkins - 10/12/2023 10:56 AM EDT Symptom: Vulvar Symptoms Outcome: Schedule an appointment to be seen within 24 hours Reason: Caller denied all higher acuity questions The caller accepted this outcome 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
--- OUTSIDE RECORDS SUMMARY | 2024-08-26 07:40 | XMS_ITS | Data Portability ---
Author Organization [employer] [facility] - [facility] Address [address] [place] [phone] Care Team Providers Care Business Excellence Leader Name Role Phone HIM CCA OTHER Assessment Encounter Date Assessment Date Assessment LastModified by Organization Details LastModified Time 08/14/2024 08/14/2024 I have reviewed and agree with the assessment and plan as documented by the grain handler. I provided real time medical direction for this encounter and was immediately available to provide additional phone based assistance as needed. History as noted by grain handler. 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 Procedures None recorded. Surgeries None recorded. Imaging None recorded. Medication Orders guaifenesin ER 600 mg tablet, extended release 12 hr 2024 025 [id number], [address] [place], [address], 11:50:42 Patient TargetsNo targets recorded. Patient InstructionsNo instructions recorded. Reason for Referral None Reported. Results Created Date Observation Date Name Description Value Unit Range Abnormal Flag Note LastModifiedBy Organization Detail LastModifiedTime 08/14/1908/14/2024 rapid flu (A+B) Flu negati ve Not Available [facility] ed [address] [place] [address], [phone], 08/14/2024 11:48:41 08/14/19 25 08/14/2024 rapid SARS CoV 2 Ag, QL IA, respi rator y speci men rapid SARS CoV 2 Ag, QL IA, respiratory specimen negati ve Not Available [facility] ed [address] [place] [address], [phone], 08/14/2024 11:48:40 Result Notes None recorded. Medical Equipment None Reported. Allergies Allergen ID Allergen Name Allergen Category Reaction Reaction Severity Criticality Documentation Date Start Date Code Code System Note Provider Name and Address Organization Details Recorded Time 64282 Product containin g penicilli n (product) medicatio n Not available Not available Not available 08/13/2024 14525 8001 SNOMED Not Available [facility] 20:55:36 65736 Naprosyn medicatio n Not available Not available Not available 08/13/2024 2 RxNorm Not Available [facility] 20:55:36 Medications Name Sig Start [...] % 97 % 175.26 cm 88 /min 702014. 896 g 19 /min 121 mm[Hg] 83 [...] SNOMED-CT Code Diagnosis ICD10 Code Diagnosis Note [id number] Donta Nelson MD Main - [facility] [address] [place] [address] 08/14/2024 11:44:39 08/15/2024 15:21:22 Viral upper respiratory tract infection 796210326 J06.9 Health Concerns Section Related Observation LastModified by Organization Detai ls LastModified Time None Recorded Concern Status LastModified by Organization Details LastModified Time None Recorded Advance Directives Directive None Recorded Payers Encounter Date Sequence Insurance Name Policy Number Policy Christie Covered Member ID Christie Member ID Guarantor Name 08/14/2024 1 [facility] - DOS ON OR AFTER 2022 - DUAL ELIGIBLE - PENITENTIARY OPTIONS AND ONE CARE (MEDICARE REPLACEMENT/ADV ANTAGE - HMO) Gina Uriostegui [id number] Gina Uriostegui Notes Date Note Type Note Provider Name and Address Organization Details Recorded Time 08/14/2024 text/html This was a supervised home visit with grain handler Gina Uriostegui. CRC Nurse Triage Notes (Samuel [...] - 20:55Allergies Reviewed at 08/13/2024 - 20:55Comments: Finishing Technician verified the Pt.'s name//address and phone [...] - Agrees to a visit on 08/14. Api Architect Organization Information for Liam Galvin - Fahad Legal Name: [facility] TransportationAddr ess: [address], [place] [address], Medical Director: Floyd KWON No.: [id number] Api Architect POC Test Results from Liam Galvin - COLIN Rapid COVID antigen (11:25:50)COVID: -Attachments uploaded as part of this test result can be found under Documents section. Rapid influenza antigen (11:25:51)Flu: -Attachments uploaded as part of this test result can be found under Documents section. .................. .................. .................. .................. .................. .................. .................. ............... Api Architect Note From Liam Galvin: Pt chief complaint today of cold/ flu symptoms. Pt states that for the past x3 days prior to her [facility] appointment today she has been feeling general body aches, runny nose, dry cough and sinus pain. Pt also notes loss of appetite, Pt state that she has been using Sudafed pe as well as Tylenol 500 mg with very minimal relief. Pt also notes to be feeling feverish with chills. 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 Pt sent a prescription for guaifenesin to help with cough and congestion. Pt informed to call her pcp for a possible follow up. Pt also educated on red flag S&S and informed to call emergency services if any present. .................. .................. .................. .................. .................. .................. .................. ............... [facility] Consulted: Donta Nelson .................. .................. .................. .................. .................. .................. .................. ............... Disposition: Fulfilled Donta Nelson MD [address] [facility], [place], [address], [employer] 08/14/2024 12:36:07 OBGyn Episode No OBEpisode recorded.
--- OUTSIDE RECORDS SUMMARY | 2024-08-26 07:40 | XMS_ITS | Encounter Summary ---
Author Organization [employer] Address [address] [place] [address] Care Team Providers Care Fur Cutter Name Role Phone Zaheer Madden MD Primary Care Provider [phone]- [phone] Reason for Visit * Reason Comments Med Refill Encounter Details Date Type Department Care Team ([facility] st Contact Info) Description 02/14/2023 Refill [facility] CHC MED & PEDS [address] [place] [address] Zaheer Madden MD [address] [place] [address] Social History Tobacco Use Types Packs/Day Years Used Date Smoking Tobacco: Never Passive Smoke Exposure: Never Smokeless Tobacco: Never Alcohol Use Standard Drinks/Week Comments Never 0 (1 standard drink = 0.6 oz pur e alcohol) Comments Unknown Sex and Gender Information Value Date Recorded Sex Assigned at Female 05/05/2022 10:18 AM EDT Legal Sex Female 10:18 AM EDT Gender Identity Female 05/05/2022 10:18 AM EDT Sexual Orientation Straight 05/05/2022 10 :18 AM EDT documented as of this encounter Plan of Treatment Not on file documented as of this encounter Visit Diagnoses Not on filedocumented in this encounter Care Teams Fur Cutter Relationship Specialty Start Date End Date Zaheer Madden MD [address] [place] [address] PCP - General Internal Medicine 07/06/18 documented as of this encounter
--- OUTSIDE RECORDS SUMMARY | 2024-08-26 07:40 | XMS_ITS | Encounter Summary ---
Author Organization [facility] [place] [address] Care Team Providers Care Sales Assistant Entertainment And Media Name Role Phone Zaheer Madden MD Primary Care Provider +1 -[phone] Reason for Visit * Reason Onset Date Comments Med Refill 08/09/2024 Encounter Details Date Type Department Care Team (Late st Contact Info) Description 08/09/2024 Telephone Bariatric Surgery - [place] [facility] [address] [place] [phone] Eli Greer MD [address] [address] Med Refill Social History Tobacco Use Types Packs/Day Years Used Date Smoking Tobacco: Never Passive Smoke Exposure: Never Smokeless Tobacco: Never Alcohol Use Standard Drinks/Week Comments Yes 0.8 [...] Orientation Straight 06/13/2024 5: 44 AM EST documented as of this encounter Progress Notes * Yvette Ferguson MA - 08/09/2024 9:01 AM EST Pt needs refill on h phentermine 30 mg capsule documented in this encounter Plan of Treatment Upcoming Encounters Date Type Department Care Team (Late st Contact Info) Description 01/10/2025 8:45 AM EDT Office Visit Bariatric Surgery - [place] [address] [address] Eli Greer MD [address] [address] documented as of this encounter Visit Diagnoses Not on filedocumented in this encounter Care Teams Sales Assistant Entertainment And Media Relationship Specialty Start Date End Date Zaheer Madden MD [address] [place] [address] PCP - General Internal Medicine 01/26/18 documented as of this encounter
--- OUTSIDE RECORDS SUMMARY | 2024-08-26 07:40 | XMS_ITS | Encounter Summary ---
Author Organization [employer] Address 75 [facility] 7t [place] [address] Care Team Providers Care Flavor Maker Name Role Phone Zaheer Madden MD Primary Care Provider +- [phone] Reason for Visit * Reason Comments Med Change Request Encounter Details Date Type Department Care Team ([facility] st Contact Info) Description 08/04/2023 Refill [facility] CHC MED & PEDS [address] [place], [place] [phone] Josephine Lynne MD [address] [place] [address] Social History Tobacco Use Types Packs/Day Years Used Date Smoking Tobacco: Never Passive Smoke Exposure: Never Smokeless Tobacco: Never Alcohol Use Standard Drinks/Week Comments Not Currently 0 (1 standard drink = 0.6 oz pur e alcohol) Housing Stability Answer Date Recorded What is your housing situation today? I do not have housing (Staying with others, in a hotel, in a usp, living outside on the street, on a [...] on filedocumented in this encounter Care Teams Flavor Maker Relationship Specialty Start Date End Date Zaheer Madden MD [address] [place] [address] PCP - General Internal Medicine 07/06/18 documented as of this encounter
--- OUTSIDE RECORDS SUMMARY | 2024-08-26 07:41 | XMS_ITS | Encounter Summary ---
Author Organization [employer] Address 75 [facility] 7 [place] [address] Care Team Providers Care Nurse Wound Care Name Role Phone Zaheer Madden MD Primary Care Provider +1- [phone] Encounter Details Date Type Department Care Team ([facility] st Contact Info) Description 04/07/2024 Orders Only [facility] CHC MED & PEDS [address] [place], [place] [phone] Zaheer Madden MD [address] [place] [address] Recurrent UTI (Primary Dx) Social History Tobacco Use Types Packs/Day Years Used Date Smoking Tobacco: Never Passive Smoke Exposure: Never Smokeless Tobacco: Never Alcohol Use Standard Drinks/Week Comments Not Currently 0 (1 standard drink = 0.6 oz pur e alcohol) Depression Answer Date Recorded Patient Health Questionnaire-9 Score 0 04/05/2024 Patient Health Questionnaire-9 Score 0 04/05/2024 Last PHQ-9: Questionnaire Data Not on file 1 Housing Stability Answer Date Recorded What is your housing situation today? I do not have housing (Staying with others, in a hotel, in a care home, living outside on the street, on a [...] Date Recorded Patient Health Questionnaire-2 Score 0 04/05/2024 Comments No Sex and Gender Information Value Date Recorded Sex Assigned at Female 05/05/2022 10:18 AM EDT Legal Sex Female 10:18 AM EDT Gender Identity Female 05/05/2022 10:18 AM EDT Sexual Orientation Straight 05/05/2022 10 :18 AM EDT documented as of this encounter Plan of Treatment Not on file documented as of this encounter Visit Diagnoses Diagnosis Recurrent UTI- Primary Urinary tract infection, site not specified documented in this encounter Additional Health Concerns Assessment Noted Time PHQ-9 Depression Total Score: 0 04/05/20 24 9:39 AM EDT documented as of this encounter Care Teams Nurse Wound Care Relationship Specialty Start Date End Date Zaheer Madden MD [address] [place] [address] PCP - General Internal Medicine 07/06/18 documented as of this encounter
--- OUTSIDE RECORDS SUMMARY | 2024-08-26 07:41 | XMS_ITS | Encounter Summary ---
Author Organization [employer] Address 75 [facility] 7t [place] [address] Care Team Providers Care Cook Helper Vegetable Name Role Phone Zaheer Madden MD Primary Care Provider +1- [phone] Encounter Details Date Type Department Care Team (Late st Contact Info) Description 02/22/2024 Orders Only [facility] CHC MED & PEDS [address] [place], [place] [phone] ProviderFamilia MD Social History Tobacco Use Types Packs/Day Years Used Date Smoking Tobacco: Never Passive Smoke Exposure: Never Smokeless Tobacco: Never Alcohol Use Standard Drinks/Week Comments Not Currently 0 (1 standard drink = 0.6 oz pur e alcohol) Housing Stability Answer Date Recorded What is your housing situation today? I do not have housing (Staying with others, in a hotel, in a prison, living outside on the street, on a [...] the past 12 months, has t he [employer], gas, oil or water [employer] threatened to shut off services in your [...] on file documented as of this encounter Procedures Procedure Name Priority Date/Time Associated Diagnosis Comments XR KNEE 4 OR MORE VIEWS RIGHT Routine 02/21/2024 9:25 AM EDT documented in this encounter Results * XR KNEE 4 OR MORE VIEWS RIGHT (02/21/2024 9:25 AM EDT) Anatomical Region Laterality Modality Radiographic Shakila ging us Historical Provider MD ROBERTSON XR PROCEDURES Final R esult documented in this encounter Visit Diagnoses Not on filedocumented in this encounter Care Teams Cook Helper Vegetable Relationship Specialty Start Date End Date Zaheer Madden MD [address] [place] [address] PCP - General Internal Medicine 07/06/18 documented as of this encounter
--- OUTSIDE RECORDS SUMMARY | 2024-08-26 07:41 | XMS_ITS | Encounter Summary ---
Author Organization [employer] Address 75 [facility] 7t [place] [address] Care Team Providers Care Wind Up Worker Name Role Phone Zaheer Madden MD Primary Care Provider +1- [phone] Encounter Details Date Type Department Care Team (Late st Contact Info) Description 03/09/2024 Orders Only [facility] CHC MED & PEDS [address] [place], [place] [phone] ProviderFamilia MD Social History Tobacco Use Types Packs/Day Years Used Date Smoking Tobacco: Never Passive Smoke Exposure: Never Smokeless Tobacco: Never Alcohol Use Standard Drinks/Week Comments Not Currently 0 (1 standard drink = 0.6 oz pur e alcohol) Housing Stability Answer Date Recorded What is your housing situation today? I do not have housing (Staying with others, in a hotel, in a custodial, living outside on the street, on a [...] the past 12 months, has t he [employer], gas, oil or water [employer] threatened to shut off services in your [...] Procedure Name Priority Date/Time Associated Diagnosis Comments CT ABDOMEN PELVIS WO CONTRAST Routine 03/09/2024 10:12 AM EDT documented in this encounter Results * CT Abdomen Pelvis w/o Contrast (03/09/2024 10:12 AM EDT) Anatomical Region Laterality Modality Body, Pelvis, Abdomen Computed T omography us Historical Provider MD ROBERTSON CT PROCEDURES Final R esult documented in this encounter Visit Diagnoses Not on filedocumented in this encounter Care Teams Wind Up Worker Relationship Specialty Start Date End Date Zaheer Madden MD [address] [place] [address] PCP - General Internal Medicine 07/06/18 documented as of this encounter
== END 2024-08-26 07:39 | disposition home or self-care (01) ==
LOC: HO.MAMMO 07:38
PROVIDERS: PCP Internal Medicine; Visit Provider Advanced Practice Midwife
DX: Z12.31 Encounter for screening mammogram for malignant neoplasm of breast (principal)
CPT/HCPCS: 77063; 77067

== ENCOUNTER → 2024-08-26 08:00 | Outpatient (BNV) | payer OTHER, SELFPAY | PROVIDERS: PCP Internal Medicine; Visit Provider Internal Medicine | DX: Z12.31 Encounter for screening mammogram for malignant neoplasm of breast (principal) | CPT/HCPCS: 77063; 77067 ==

== ENCOUNTER 2024-10-14 22:29 | Emergency (ER) | payer OTHER, SELFPAY ==
--- NOTE | ~2024-10-14 | CT_ITS ---
CLINICAL HISTORY: Left flank pain, hx of kidney stones CT abdomen and pelvis without contrast Comparison: None Findings: There is a tiny benign subpleural nodule in the right middle lobe. Patient is status post cholecystectomy. The liver, pancreas, spleen, and adrenal glands are unremarkable. There is a 4 mm nonobstructing left renal stone. Kidneys are otherwise unremarkable. There is no ureteral stone or stone in the bladder. The appendix is normal. Patient is status post gastric bypass. There is focal postoperative small-bowel dilation at the enteroenteric anastomosis in the left abdomen. There is no bowel obstruction. The remainder of the gastrointestinal tract is unremarkable. There is no free fluid or free air. Patient is status post hysterectomy. There is a 3.6 cm simple appearing left ovarian cyst/dominant follicle almost certainly benign. There are no enlarged lymph nodes. The aorta is normal in diameter. There are bilateral L5 pars defects with minimal grade 1 anterolisthesis of L5 on S1. There are degenerative changes in the lower lumbar spine. There is no acute fracture or suspicious lytic or sclerotic lesion. IMPRESSION: 1. No acute abnormality in the abdomen or pelvis. 2. 4 mm nonobstructing left renal stone. 3. 3.6 cm simple appearing left ovarian cyst/dominant follicle. 4. Additional chronic findings as above. This document has been electronically signed by: Julien Rodgers MD on 10/15/2024 01:51:54
[2024-10-14 22:34] VITALS: BP 96/64; PULSE 72; RESP 14; TEMP 35.8; O2SAT 100; BMI 32.5
--- OUTSIDE RECORDS SUMMARY | 2024-10-14 22:49 | XMS_ITS | Encounter Summary ---
Author Organization [employer] Address 75 [facility] 7 [place] [address] Care Team Providers Care Top Distribution Executive Name Role Phone Zaheer Madden MD Primary Care Provider +1- [phone] Reason for Visit * Reason Onset Date Comments Nurse Triage 10/12/2023 Encounter Details Date Type Department Care Team (Late st Contact Info) Description 10/12/2023 Telephone [facility] MEDICINE [address] [place] [address] Zaheer Madden MD [address] [place] [address] Nurse Triage Social History Tobacco Use Types Packs/Day Years Used Date Smoking Tobacco: Never Passive Smoke Exposure: Never Smokeless Tobacco: Never Alcohol Use Standard Drinks/Week Comments Not Currently 0 (1 standard drink = 0.6 oz pur e alcohol) Housing Stability Answer Date Recorded What is your housing situation today? I do not have housing (Staying with others, in a hotel, in a chcf, living outside on the street, on a [...] afternoon tomorrow. ASK/Nic PETERSON 10/26/23 1015am in [facility]. Patient in agreement with plan. 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
--- OUTSIDE RECORDS SUMMARY | 2024-10-14 22:49 | XMS_ITS | Encounter Summary ---
Author Organization [employer] Address 75 [facility] 7t [place] [address] Care Team Providers Care Betting Agency Manager Name Role Phone Zaheer Madden MD Primary Care Provider +1- [phone] Encounter Details Date Type Department Care Team (Late st Contact Info) Description 03/09/2024 Orders Only [facility] MED & PEDS [address] [place], [place] [phone] ProviderFamilia MD Social History Tobacco Use Types Packs/Day Years Used Date Smoking Tobacco: Never Passive Smoke Exposure: Never Smokeless Tobacco: Never Alcohol Use Standard Drinks/Week Comments Not Currently 0 (1 standard drink = 0.6 oz pur e alcohol) Housing Stability Answer Date Recorded What is your housing situation today? I do not have housing (Staying with others, in a hotel, in a jail, living outside on the street, on a [...] the past 12 months, has t he [email or web address], gas, oil or water [employer] threatened to shut off services in your [...] on filedocumented in this encounter Care Teams Betting Agency Manager Relationship Specialty Start Date End Date Zaheer Madden MD [address] [place] [address] PCP - General Internal Medicine 07/06/18 documented as of this encounter
--- OUTSIDE RECORDS SUMMARY | 2024-10-14 22:49 | XMS_ITS | Encounter Summary ---
Author Organization [employer] Address 75 [facility] 7 [place] [address] Care Team Providers Care Laborer Hoisting Name Role Phone Zaheer Madden MD Primary Care Provider +1- [phone] Reason for Visit * Reason Onset Date Comments Reschedule 08/11/2023 Encounter Details Date Type Department Care Team (Late st Contact Info) Description 08/11/2023 Telephone [facility] MEDICINE [address] [place] [address] Zaheer Madden MD [address] [place] [address] Reschedule Social History Tobacco Use Types Packs/Day Years Used Date Smoking Tobacco: Never Passive Smoke Exposure: Never Smokeless Tobacco: Never Alcohol Use Standard Drinks/Week Comments Not Currently 0 (1 standard drink = 0.6 oz pur e alcohol) Housing Stability Answer Date Recorded What is your housing situation today? I do not have housing (Staying with others, in a hotel, in a long-term, living outside on the street, on a [...] on filedocumented in this encounter Care Teams Laborer Hoisting Relationship Specialty Start Date End Date Zaheer Madden MD [address] [place] [address] PCP - General Internal Medicine 07/06/18 documented as of this encounter
--- OUTSIDE RECORDS SUMMARY | 2024-10-14 22:49 | XMS_ITS | Encounter Summary ---
Author Organization [email or web address] Address [address] [facility] 7t [place] [address] Care Team Providers Care Back Office Medical Assistant Name Role Phone Zaheer Madden MD Primary Care Provider +- [phone] Reason for Visit * Reason Comments Med Change Request Encounter Details Date Type Department Care Team ([facility] st Contact Info) Description 08/04/2023 Refill [facility] CHC MED & PEDS [address] [place], [place] [phone] Josephine Lynne MD [address] [place] [address] Social History Tobacco Use Types Packs/Day Years Used Date Smoking Tobacco: Never Passive Smoke Exposure: Never Smokeless Tobacco: Never Alcohol Use Standard Drinks/Week Comments Not Currently 0 (1 standard drink = 0.6 oz pur e alcohol) Housing Stability Answer Date Recorded What is your housing situation today? I do not have housing (Staying with others, in a hotel, in a residential, living outside on the street, on a [...] on filedocumented in this encounter Care Teams Back Office Medical Assistant Relationship Specialty Start Date End Date Zaheer Madden MD [address] [place] [phone] PCP - General Internal Medicine 07/06/18 documented as of this encounter
--- OUTSIDE RECORDS SUMMARY | 2024-10-14 22:49 | XMS_ITS | Encounter Summary ---
Author Organization [employer] Address [address] [facility] 7 [place] [address] Care Team Providers Care Conveyor Mechanic Name Role Phone Zaheer Madden MD Primary Care Provider +1- [phone] Encounter Details Date Type Department Care Team ([facility] st Contact Info) Description 04/07/2024 Orders Only [facility] CHC MED & PEDS [address] [place], [place] [phone] Zaheer Madden MD 505 [place] [address] Recurrent UTI (Primary Dx) Social History Tobacco [...] with others, in a hotel, in a half-way, living outside on the street, on a [...] documented as of this encounter Care Teams Conveyor Mechanic Relationship Specialty Start Date End Date Zaheer Madden MD [address] [place] [phone] PCP - General Internal Medicine 07/06/18 documented as of this encounter
--- OUTSIDE RECORDS SUMMARY | 2024-10-14 22:49 | XMS_ITS | Encounter Summary ---
Author Organization [employer] Address [address] [place] [address] Care Team Providers Care Drug Room Operator Name Role Phone Zaheer Madden MD Primary Care Provider +1- [phone] Reason for Visit * Reason Comments Med Refill Encounter Details Date Type Department Care Team ([facility] st Contact Info) Description 02/14/2023 Refill [facility] CHC MED & PEDS [address] [place] [address] Zaheer Madden MD [address] [place] [address] Social History Tobacco Use Types Packs/Day Years [...] on filedocumented in this encounter Care Teams Drug Room Operator Relationship Specialty Start Date End Date Zaheer Madden MD [address] [place] [address] PCP - General Internal Medicine 07/06/18 documented as of this encounter
--- OUTSIDE RECORDS SUMMARY | 2024-10-14 22:49 | XMS_ITS | Clinical Summary ---
Author Organization [employer] Address [address] [facility] 7t [place] [address] Care Team Providers Care Kettle Skimmer Name Role Phone Zaheer Madden MD Primary Care Provider +1- [phone] Allergies Active Allergy Reactions Criticality Noted Date [...] Encounters Date Type Department Care Team Description 08/26/[address] [facility] MEDICINE [address] [place] [address] Tai Dodd CNM 07/27/2024 10:00 AM EST Office Visit [facility] [address] [place] [address] Zaheer Madden MD Fibroid (Primary Dx); Class 2 obesity due to excess calories without serious comorbidity with body mass index (BMI) of 37.0 to 37.9 in adult; Bipolar disorder in full remission, most recent episode unspecified type ([facility]); Recurrent UTI 07/27/2024 Travel 07/18/2024 Patient Outreach [facility] [address] [place] [address] Zaheer Madden MD Pre-visit Planning ([facility] unable to reach [facility]) from Last 3 Months Immunizations Name [...] Done Comments Hepatitis B Vaccines (1 of - 19+ 3-dose series) 2001 COVID-19 Vaccine (2023- season) 2024 06/24/2023, 07/11/2021, 12/15/2020, Additional history exists Influenza Vaccine (#1) 2024 SDOH Screening 06/16/2024 06/16/2023 Family Planning (PISQ) 10/25/2024 10/26/2023 Alcohol/Substance Use Screening 07/27/2025 07/27/2024 Depression Screening 07/27/2025 07/27/2024, 07/27/19 Tobacco Screening 07/27/2025 07/27/2024 Cervical Cancer Screening 05/26/2026 HPV/Cotest 05/26/2026 05/26/2023, 02/05, 02/28/2020 Pap Smear 05/26/2026 05/26/2023, 02/05, 02/28/2020 Mammogram 08/26/2026 08/26/2024, 08/24/2023 Lipid Panel 06/24/2028 06/24/2023 DTaP/Tdap/Td Vaccines (3 [...] Procedure Name Priority Date/Time Associated Diagnosis Comments BI MAMMOGRAM SCREENING TOMOSYNTHESIS BILATERAL Routine 08/26/2024 7:46 AM EST HIV 1/2 ANTIGEN/ANTIBODY, FOURTH GENERATION W/RFL Routine 04/05/2024 10:31 AM EDT Encntr screen for infections w sexl mode of transmiss LIPID PANEL, STANDARD Routine 06/24/2023 12:06 PM EST Obesity (BMI 30-39.9) HPV MRNA E6/E7 REFLEX TO HPV 16, 18/45 Routine 05/26/2023 10:45 AM EST PAP SMEAR Routine 05/26/2023 10:45 AM EST ZZZ HISTORICAL HEPATITIS C AB W/REFL TO HCV RNA, QN, PCR Routine 03/15/2021 9:03 AM EDT from Last 3 Months or Most Recently Relevant to Health Maintenance Results * BI Mammogram Screening Tomosynthesis Bilateral (08/26/2024 7:46 AM EST) Anatomical Region Laterality Modality Breast Bilateral Mammography 08/26/2024 7:46 AM EST Narrative 09/02/2024 3:40 PM EST ? [facility] ? [address] ?[place] [address] ? Mammography Report ? Signed ? Patient: Gina Uriostegui ?MR#: [id number] ?? [id number] ? : 1980 ?Acct:[id number] ? Age/Sex: 44 / F ?ADM Date: 02/21/25 ? Loc: HO.MAMMO ? Attending Dr: Tai Dodd CNM ? Ordering Physician: TAI DODD CNM ?Results: 1 ?? Negative ? Date of Service: 08/26/24 ?Follow Up: 1 Year From Orig ?? inal Mammogram ? Procedure(s): MM tomosynthesis screening BI ?? Accession Number(s): [id number] ? cc: Zaheer Madden MD; TAI DODD CNM ? EXAMINATION: ?? MM SCREENING DIGITAL BREAST TOMOSYNTHESIS, BILATERAL ? CLINICAL INFORMATION: ? Screening. Asymptomatic. ? COMPARISON: ?? Mammography: Comparison is made with available priors ? TECHNIQUE: ?? Digital breast mammography with tomosynthesis is performed in both the ?? craniocaudal and mediolateral oblique views along with computer-aided ?? detection (CAD). ? FINDINGS: ?? There are scattered areas [...] due date for their next mammogram. ? Electronically signed by: ??Shila Jiakaylene DO ??09/02/2024 03:37 PM EST ?? RP ? Dictated By: ?Shila Chavez DO ? Signed By: ?<Electronically signed by Shila Chavez, DO in OV> ? 09/02/24 1537 ? DD/ 0746 ? TD/TT: 08/26/24 0801 ? Neighborhood Planner: ? Procedure Note Reilly, Image - 02/28/2025 [facility] [address] [place] [address] Dr. Bermudez, [place] [address] Mammography Report Signed Patient: Gina Uriostegui [facility]#: [id number] : 1980Acct:[id number] Age/Sex: 44 / FADM Date: 08/26/24 Loc: HO.MAMMO Attending Dr: Tai Dodd CNM Ordering Physician: TAI DODDesults: 1 Negative Date of Service: 08/26/24Follow Up: 1 Year From Orig ina Mammogram Procedure(s): MM tomosynthesis screening BI Accession Number(s): [id number] cc: Zaheer Madden MD; TAI DODD CNM EXAMINATION: MM SCREENING DIGITAL BREAST TOMOSYNTHESIS, BILATERAL CLINICAL INFORMATION: Screening. Asymptomatic. COMPARISON: Mammography: Comparison is made with available priors TECHNIQUE: Digital breast mammography with tomosynthesis is performed in both the craniocaudal and mediolateral oblique views along with computer-aided detection (CAD). FINDINGS: There are scattered areas of fibroglandular [...] target due date for their next mammogram. Electronically signed by: Shila Chavez DO 09/02/2024 03:37 PM [facility] Dictated By: Shila Chavez DO Signed By: <Electronically signed by Shila Chavez DO in OV> 09/02/24 1537 DD/ 0746 TD/TT: 08/26/24 0801 Neighborhood Planner: Tai Dodd CNM IMG BI PROCEDURES Final R esult * HIV-1/2 Antigen and Antibodies, Fourth Generation, with Reflexes (04/05/2024 10:31 AM EDT) HIV AB/AG Nonreactive Nonreactive [facility] Comment:HIV-1 p24 Ag and/or HIV-1/HIV-2 Ab not detected.A test result that is nonreactive does not exclude thepossibility of exposure to or infection with HIV-1 and/orHIV-2. Nonreactive results in this assay for individualswith prior exposure to HIV-1 and/or HIV-2 may be due toantigen and antibody levels that are below the limit ofdetection of this assay.The [employer] HIV Ag/Ab Combo assay result andsupplemental assay results should be interpreted inconjunction with the patient's clinical presentation,history and other laboratory results. If the results areinconsistent with clinical evidence, additional testing issuggested to confirm the result. Blood Venous blood specimen / Unknown 04/05/2024 10:31 AM EDT 04/05/2024 2:13 PM EDT us Tai Dodd [facility] BLOOD ORDERABLES Joana l Result [facility] [address] [place] [address] [phone] * Lipid Panel, Standard (06/24/2023 12:06 PM EST) Triglycerides 102 <150 mg/dL [facility] Comment:Desirable Triglyceri de: less than 150 mg/dLBorderline High Triglyceride 150-199 mg/dLHigh Triglyceride: 200-499 mg/dLVery High Triglyceride: greater than or equal to 5OO mg/dL Cholesterol 155 <200 mg/dL [facility] Comment:Desirable Cholestero l: less than 200 mg/dLBorderline High Cholesterol: 200-239 mg/dLHigh Cholesterol: greater than 239 mg/dL LDL Cholesterol Calculated 84 <100 mg/dL [facility] Comment:Desirable LDL: less than 100 mg/dLNear Optimal/Above Optimal LDL: 110- 129 mg/dLBorderline High LDL: 130-159 mg/dLHigh LDL: 160-189 mg/dLVery High LDL: greater than or equal to 190 mg/dL HDL Cholesterol 51 >40 mg/dL [facility] Comment:Desirable HDL: great er than 40 mg/dL Note: This HDL assay may give artificially low results in patients with liver disease. Blood Venous blood specimen / Unknown 06/24/2023 12:06 PM EST 06/24/2023 2:00 PM EST us Zaheer Madden MD LAB BLOOD ORDERABLES Final Result Performing Organization Address [facility] Co de Phone Number [facility] [address] [place] [address] [phone] * HPV mRNA E6/E7 w/Reflex to HPV Genotypes 16, 18/45 (05/26/2023 10:45 AM EST) HPV nRNA E6/E7 Not Detected Not Detected [facility] Comment:Methodology: Transcr iption-Mediated AmplificationThis assay detects E6/E7 viral messenger RNA (mRNA) from 14high-risk HPV types (16,18,31,33,35,39,45,51,52,56,58,59,66,68).Cervical sources are required for HPV testing.If a vaginal source from a patient who has had atotal hysterectomy with removal of cervix wassubmitted, please contact the testing laboratoryfor alternative testing options.For additional information, please refer tohttp://education.FIGS/faq/YXP800h4(This link if provided for information/educational purposes only.)THIS TEST WAS PERFORMED AT:[employer] [place] [phone] HOLMAN MD HPV mRNA E6/E7 [facility] HPV 16 RNA [facility] HPV 18/45 RNA [facility] 05/26/2023 10:4 5 AM EST 05/27/2023 8:30 AM EST us Tai Dodd CNM LAB CYTOLOGY ORDERABLES F inal Result Performing Organization Address City/[facility]/ZIP Co de Phone Number [facility] [address] [place] [address] [phone] * Pap Smear (05/26/2023 10:45 AM EST) 05/26/2023 10:4 5 AM EST 05/27/2023 8:30 AM EST Narrative [facility] - 06/09/2023 7:58 AM EST ----- ------- Name: Gina Uriostegui ?Age/Sex: 43/F ? : 1980 Unit#: [id number] ?? Attend Dr: TAI DODD CNM ?Re05/26/23 ?Status: DEP REF ? Location: HO.CHCLNP ? Disch: ? ----- ------- SPEC : [id number] ?RECD: 05/27/23-829 ? STATUS: ??SOUT ? REQ NUM: [id number] ? JOE: 05/26/23 ? SUBM DR: TAI DODD CNM ? ENTERED: ??05/27/23 ?SP TYPE: Pap Smr ?OTHR DR: ? ORDERED: ??Pap Smear ? Interpretation ?? [...] 66, 68) ?? HPV testing performed by [employer], [place], [place]. ??See reference laboratory ?? portion of the EMR for entire report. ?Clinical Information LMP: Unknown date Previous PAP test: 2020, WNL Other history: 2019, NIL HPV ? Material Received ?? ThinPrep-Vaginal/Cervical ----- ------- Signed (signature on file) Dorothy SLIME Nava ([facility]) 06/09/23 0758 ? ----- ------- ? END OF REPORT ? Tai Dodd CNM LAB CYTOLOGY ORDERABLES F inal Result Performing Organization Address [facility]/ZIP Co de Phone Number [facility] [address] [place] [phone] * HEPATITIS C AB W/REFL TO HCV RNA, QN, PCR (03/15/2021 9:03 AM EDT) Pathologist [facility] HEPATITIS C ANTIBODY NON-REACT NADIA NON-REACT NADIA [facility] INDEX 0.01 <1.00 [facility] Comment: ?? HCV antibody was non-reactive. There is no laboratory ?? evidence of HCV infection. ?? In most cases, no further action is required. However, if recent HCV exposure is suspected, a test for HCV RNA (test code 09162) is suggested. ?? For additional information please refer to http://education.Branch2.MYR/faq/QTJ71q7 (This link is being provided for informational/ educational purposes only.) ?? 03/15/2021 9:03 AM EDT Tai Dodd CNM HISTORICAL/NON ORDERABLE LABS Final Result Performing Organization Address City/[facility]/ZIP Co de Phone Number [facility] [address] [place] [address], from Last 3 Months or Most Recently Relevant to Health Maintenance Insurance [facility] STANDARD CARE [place] [address] * Guarantor: Ke Uriosteguiia Account Type Relation to Patient Date of Phone Billing Address Personal/Family Self [address] Care Teams Kettle Skimmer Relationship Specialty Start Date End Date Zaheer Madden MD [address] [place] [phone] PCP - General Internal Medicine 07/06/18
--- OUTSIDE RECORDS SUMMARY | 2024-10-14 22:49 | XMS_ITS | Encounter Summary ---
Author Organization [employer] Address [address] [facility] 7t [place] [address] Care Team Providers Care Unix System Administrator Name Role Phone Zaheer Madden MD Primary Care Provider +1- [phone] Encounter Details Date Type Department Care Team (Late st Contact Info) Description 02/22/2024 Orders Only [facility] CHC MED & PEDS [address] [place], [place] [phone] ProviderFamilia MD Social History Tobacco Use Types [...] the past 12 months, has t he [employer], gas, oil or water [facility] threatened to shut off services in your [...] on filedocumented in this encounter Care Teams Unix System Administrator Relationship Specialty Start Date End Date Zaheer Madden MD [address] [place] [phone] PCP - General Internal Medicine 07/06/18 documented as of this encounter
--- OUTSIDE RECORDS SUMMARY | 2024-10-14 22:49 | XMS_ITS | Data Portability ---
Author Organization [employer] [place] - [facility] Address [address] [place] [phone] Care Team Providers Care Animal Surgeon Name Role Phone HIM CCA OTHER Assessment Encounter Date Assessment Date Assessment LastModified by Organization Details LastModified Time 08/14/2024 08/14/2024 I have reviewed and agree with the assessment and plan as documented by the chlorobutadiene scrubber operator. I provided real time medical direction for this encounter and was immediately available to provide additional phone based assistance as needed. History as noted by chlorobutadiene scrubber operator. Pt reports 3 days of URI symptoms with LIME BURNER cough, nasal congestion and sinus pressure, rhinorrhea, [...] [facility] significantly after 1 [...] respiratory specimen 2024 025 btils Main - [facility], [address] [place] [address], [phone] 11:49:18 rapid flu (A+B) 2024 025 btils [facility], [address] [place] [address], [phone] 11:49:18 Referral None recorded. Procedures None recorded. Surgeries None recorded. Imaging None recorded. Medication Orders guaifenesin ER 600 mg tablet, extended release 12 hr 2024 025 [id number], [address] [facility], [place], [address], 11:50:42 Patient TargetsNo targets recorded. Patient InstructionsNo instructions recorded. Reason for Referral None Reported. Results Created Date Observation Date Name Description Value Unit Range Abnormal Flag Note LastModifiedBy Organization Detail LastModifiedTime 08/14/1908/14/2024 rapid flu (A+B) Flu negati ve Not Available [facility] ed [address] [place] [address], [phone] 08/14/2024 11:48:41 08/14/1908/14/2024 rapid SARS CoV 2 Ag, QL IA, respi rator y speci men rapid SARS CoV 2 Ag, QL IA, respiratory specimen negati ve Not Available [facility] ed [address] [place] [address], [phone] 08/14/2024 11:48:40 Result Notes None recorded. Medical Equipment None Reported. Allergies Allergen ID Allergen Name Allergen Category Reaction Reaction Severity Criticality Documentation Date Start Date Code Code System Note Provider Name and Address Organization Details Recorded Time 08793 Product containin g penicilli n (product) medicatio n Not available Not available Not available 08/13/2024 20676 8001 SNOMED Not Available [facility] 20:55:36 99616 Naprosyn medicatio n Not available Not available Not available 08/13/2024 86727 2 RxNorm Not Available [facility] 20:55:36 Medications Name Sig [...] Not Available Not Available No t Available Mucus Relief ER 600 mg tablet, extended release TAKE 1 TABLET EVERY 12 HOURS BY ORAL ROUTE NEEDED FOR 10 DAYS, FOR COUGH, CONGESTION. active Not Available Not Available Not Available tranexamic acid 650 mg tablet TAKE 2 TABLETS ORALLY 3 TIMES A DAY FOR 5 DAYS active Not Available Not Available N ot Available Vitals Date Recorded Body temperature Oxygen saturation Oxygen saturation in Arterial blood by Pulse oximetry Body height Heart rate Body weight Respiratory rate Systolic blood pressure Diastolic blood pressure Provider Name and Address Organization Details Last Updated DateTime 5 98.1 [degF] 97 % 97 % 175.26 cm 88 /min 887620. 896 g 19 /min 121 mm[Hg] 83 [...] SNOMED-CT Code Diagnosis ICD10 Code Diagnosis Note [id number] Donta Nelson MD Main - [facility] [address] [place] [phone] 08/14/2024 11:44:39 08/15/2024 15:21:22 Viral upper respiratory tract infection [id number] J06.9 Health Concerns Section Related Observation LastModified by Organization Detai ls LastModified Time None Recorded Concern Status LastModified by Organization Details LastModified Time None Recorded Advance Directives Directive None Recorded Payers Encounter Date Sequence Insurance Name Policy Number Policy Christie Covered Member ID Christie Member ID Guarantor Name 08/14/2024 1 [facility] - DOS ON OR AFTER 2022 - DUAL ELIGIBLE - GROUP HOME OPTIONS AND ONE CARE (MEDICARE REPLACEMENT/ADV ANTAGE - HMO) Gina Uriostegui [id number] Gina Uriostegui Notes Date Note Type Note Provider Name and Address Organization Details Recorded Time 08/14/2024 text/html This was a supervised home visit with chlorobutadiene scrubber operator Gina Uriostegui. CRC Nurse Triage Notes (Samuel [...] - 20:55Allergies Reviewed at 08/13/2024 - 20:55Comments: Buffer Nickel verified the Pt.'s name//address and phone number. [...] - Agrees to a visit on 08/14. Cane Weigher Organization Information for Laura Galvinjoan Vásquez Legal Name: [facility] TransportationAddr ess: [address] [place], [place] [address], USMedical Director: Floyd Alvarez [facility] No.: [id number] Cane Weigher POC Test Results from Kamar Liam - ALS Rapid COVID antigen (11:25:50)COVID: -Attachments uploaded as part of this test result can be found under Documents section. Rapid influenza antigen (11:25:51)Flu: -Attachments uploaded as part of this test result can be found under Documents section. .................. .................. .................. .................. .................. .................. .................. ............... Cane Weigher Note From GalvinLiam shine: Pt chief complaint today of cold/ flu symptoms. Pt states that for the past x3 days prior to her [facility] appointment today she has been feeling general body aches, runny nose, dry cough and sinus pain. Pt also notes loss of appetite, Pt state that she has been using Sudafed pe as well as Tylenol 500 mg with very minimal relief. Pt also notes to be feeling feverish with chills. 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 Pt sent a prescription for guaifenesin to help with cough and congestion. Pt informed to call her pcp for a possible follow up. Pt also educated on red flag S&S and informed to call emergency services if any present. .................. .................. .................. .................. .................. .................. .................. ............... [facility] Consulted: Donta Nelson .................. .................. .................. .................. .................. .................. .................. ............... Disposition: Fulfilled Donta Nelson MD [address] [facility],[address] [facility], [place], [phone], [place] 08/14/2024 12:36:07 OBGyn Episode No OBEpisode recorded.
[2024-10-14 22:50] LABS: Appearance Urine Clear; Color Urine Yellow; Glucose Urine UA Negative (Negative); Leukocyte Esterase Urine Trace (Negative); Nitrite Urine Negative (Negative); Specific Gravity - Urine 1.025 (1.005-1.025); UMIC TRIGGER UACC YES; Urine Blood Negative (Negative); Urine Ketones Trace mg/dL (Negative); Urine Protein Negative (Neg-Trace)
[2024-10-14 22:55] LABS: Bacteria Urine Trace (None Seen); Hyaline Casts Urine 0-2 /LPF (0-2); RBC Urine 0-2 /HPF (0-2); WBC Urine 0-5 /HPF (0-5)
[2024-10-14 23:20] LABS: MANUAL DIFF FLAG NO
[2024-10-14 23:21] LABS: Basophils Percent Auto 0.5 % (0-2); Eosinophils Absolute Auto 0.1 X10*3/uL (0.0-0.4); Hematocrit 38.6 % (37.0-47.0); Hemoglobin 13.8 g/dl (12.0-16.0); Imm Gran Abs Auto 0.02 X10*3/uL (0.00-0.03); Imm Gran Pct Auto 0.2 % (0.0-0.4); Lymphocytes Absolute Auto 2.9 X10*3/uL (1.2-4.9); Lymphocytes Percent Auto 32.2 % (20-40); Mean Corpuscular HGB Conc 35.8 g/dl (31.0-35.0); Mean Corpuscular Hemoglobin 29.6 pg (27.0-33.0); Mean Corpuscular Volume 82.8 fL (80.0-98.0); Mean Platelet Volume 8.9 fL (9.4-12.3); Monocytes Absolute Auto 0.6 X10*3/uL (0.1-1.2); Monocytes Percent Auto 6.7 % (2-11); Neutrophils Absolute Auto 5.3 x10*3/uL (2.0-8.3); Neutrophils Percent Auto 59.4 % (45-73); Platelet Count 300 X10*3/uL (160-400); Red Blood Count 4.66 X10*6/uL (4.20-5.50); Red Cell Distribution Width 13.1 % (11.0-16.0); White Blood Count 8.9 X10*3/uL (4.8-10.8)
--- NOTE | 2024-10-14 23:21 | MHC.EDTECH ---
assumed care of pt @[phone]
--- NOTE | 2024-10-14 23:25 | ED_ITS ---
HPI - Female Genitourinary General Chief complaint: Urogenital-Female Stated complaint: UTI? Time Seen by Provider: 10/14/24 23:25 History of Present Illness ED Provider: Uziel VILLALBA Narrative: The patient is a 44-year-old woman who has a history of kidney stones. She also has a history of bariatric surgery. She says that at around 08:30 this morning she started to have pain in her left flank similar to pain that she has experienced with kidney stones in the past. The pain persisted all day. This evening she ate a taco and after eating the tacos she had 2 episodes of vomiting. At that point she came to the emergency room. She also says that she has some discomfort with urination tonight. She does not feel that she has any vaginal discomfort. She says she does not have any vaginal discharge. She says she has been with the same partner for the last 4 years and does not feel she is at risk for an STD. She does not feel she has had a fever today. Related Data Home Medications ?Medication ?Instructions ?Recorded ?Confirmed cholecalciferol (vitamin D3) 25 25 mcg PO DAILY 10/22/20 10/22/20 mcg (1,000 unit) capsule (Vitamin D3) doxepin 50 mg capsule 50 mg PO DAILY 10/22/20 10/22/20 ferrous sulfate 324 mg (65 mg 324 mg PO DAILY 10/22/20 10/22/20 iron) tablet,delayed release lamotrigine 150 mg tablet 150 mg PO DAILY 10/22/20 10/22/20 multivitamin cap 10/22/20 olanzapine 20 mg tablet (Zyprexa) 20 mg PO DAILY 10/22/20 10/22/20 ondansetron 4 mg disintegrating 4 mg PO Q6H PRN Nausea And Vomiting 10/22/20 10/22/20 tablet pantoprazole 40 mg tablet,delayed 40 mg PO DAILY 10/22/20 10/22/20 release verapamil 40 mg tablet 40 mg PO DAILY 10/22/20 10/22/20 Previous Rx's ?Medication ?Instructions ?Recorded sulfamethoxazole 800 1 tab PO BID #14 tabs 10/22/20 mg-trimethoprim 160 mg tablet (Bactrim DS) nitrofurantoin 100 mg PO Q12H 7 days #14 caps 03/11/21 monohydrate/macrocrystals 100 mg capsule (Macrobid) tranexamic acid 650 mg tablet 650 mg PO BID 5 days #10 tabs 03/11/21 ferrous sulfate 325 mg (65 mg 325 mg PO TID 2 months #180 tabs 04/28/21 iron) tablet ondansetron 4 mg disintegrating 4 mg PO Q6-8H PRN nausea and 04/28/21 tablet vomiting #14 tabs oxycodone 5 mg tablet 5 mg PO Q4H PRN pain #14 tabs 04/28/21 morphine 15 mg immediate release 15 mg PO Q6H PRN pain 3 days #8 05/15/21 tablet tabs nitrofurantoin 100 mg PO BID 7 days #14 caps 05/15/21 monohydrate/macrocrystals 100 mg capsule (Macrobid) ondansetron 4 mg disintegrating 4 mg PO Q8H PRN nausea and 05/15/21 tablet vomiting #20 tabs pantoprazole 40 mg tablet,delayed 40 mg PO DAILY #30 tabs 05/28/21 release (Protonix) meclizine 25 mg tablet 25 mg PO BID PRN dizziness #14 tabs 07/27/22 nitrofurantoin 100 mg PO BID 5 days #10 caps 07/27/22 monohydrate/macrocrystals 100 mg capsule (Macrobid) lorazepam 1 mg tablet (Ativan) 1 mg PO BEDTIME PRN dizziness or 09/03/22 vertigo #7 tabs meclizine 25 mg tablet 25 mg PO TID PRN dizziness #20 tabs 09/03/22 cefuroxime axetil 500 mg tablet 500 mg PO Q12H 7 days #14 tabs 05/31/23 nitrofurantoin 100 mg PO Q12H 5 days #10 caps 09/02/23 monohydrate/macrocrystals 100 mg capsule (Macrobid) tranexamic acid 650 mg tablet 1,300 mg (2 x 650 mg) PO TID 5 10/12/23 days #30 tabs cefuroxime axetil 500 mg tablet 500 mg PO BID #13 tabs 12/30/23 clotrimazole-betamethasone 1 1 appl topical BID 1 week #45 grams 02/17/24 %-0.05 % topical cream cyclobenzaprine 10 mg tablet 10 mg PO TID PRN muscle spasm #20 02/23/24 tabs lidocaine 5 % topical gel 1 ea topical BID PRN pain #10 grams 02/23/24 cefuroxime axetil 500 mg tablet 500 mg PO BID #14 tabs 03/05/24 phenazopyridine 100 mg tablet 100 mg PO TID 6 doses #6 tabs 03/05/24 nitrofurantoin 100 mg PO Q12H 5 days #10 caps 05/14/24 monohydrate/macrocrystals 100 mg capsule (Macrobid) phenazopyridine 100 mg tablet 100 mg PO TID 6 doses #6 tabs 05/14/24 ondansetron 4 mg disintegrating 4 mg PO Q6-8H PRN nausea and 05/15/24 tablet vomiting #7 tabs Allergies Allergy/AdvReac Type Severity Reaction Status Date / Time Penicillins Allergy Mild HIVES Verified 10/14/24 22:36 naproxen [NAPROXEN] Allergy Unknown BLEEDING Verified 10/14/24 22:36 penicillin V Allergy Unknown Hives Verified 10/14/24 22:36 Review of Systems 2 Review of Systems: Yes all other systems are reviewed and are negative PMFSH Past Medical History Medical History PTSD (post-traumatic stress disorder) Bipolar 1 disorder Anxiety delivery delivered Surgical History Gastric bypass status for obesity Tubal ligation status Social History Social History Alcohol intake: never Patient Tobacco Use Status: Never used Tobacco Substance Use Type: Marijuana Physical Exam 2 Vital Signs: Vital Signs: Last Vital Signs Temp 97.9 F 10/15/24 02:13 Pulse 95 10/15/24 02:13 Resp 16 10/15/24 02:13 BP 119/80 10/15/24 02:13 Pulse Ox 99 10/15/24 02:13 O2 Del Method Room Air 10/15/24 02:13 BMI result Body Mass Index 32.5 Const: Other: The patient is awake and alert. She does not seem obviously in distress or ill. She does not seem obviously uncomfortable. Orientation/consciousness: patient oriented x3 HEENT: Other: Face is symmetrical. Mucous membranes moist. Eyes: General: appearance normal, both eyes and all related structures C onjunctivae: conjunctivae normal Pupils: Equal, round and reactive pupils present EOM: EOMs intact bilaterally Neck: Neck: Yes normal visual inspection and Yes full ROM Resp: Effort & Inspection: normal respiratory effort Auscultation: clear to auscultation bilaterally Cardio: Rate: regular rate Rhythm: regular rhythm Heart sounds: S1 normal heart sound present and S2 normal heart sound present GI: Other: The patient had left upper quadrant abdominal tenderness. The other quadrants of the abdomen were nontender. Back/Spine/Pelvis: Other: No CVA percussion tenderness on either flank Skin: Other: The skin is dry and unremarkable Neuro: General: patient oriented x3, gait normal, tone normal, moves all extremities, no focal motor deficits and CN's II-XI intact bilaterally C ranial nerves: Yes Equal, round and reactive pupils present Extrem: Other: No peripheral edema, no calf swelling or tenderness Medications Administered Discontinued Medications Generic Name Dose Route Start Last Admin Trade Name Freq PRN Reason Stop Dose Admin Ondansetron HCl 4 mg 10/14/24 23:46 10/14/24 23:53 Ondansetron Odt 4 Mg Tab.Rapdis TRANSLINGU 10/14/24 23:47 4 mg ONCE ONE Administration Medical Decision Making Medical Decision Making [facility] Narrative: The patient is a 44-year-old woman who presents with a left flank pain that she says feels like pain related to previous kidney stones. She also complains of some dysuria. Clinically the patient did not appear obviously ill. Her urinalysis was unremarkable. She had some mild tenderness in the left upper quadrant. She was offered a CAT scan to evaluate for possible kidney stone. She wished to pursue this. She had a CAT scan that shows an intrarenal stone in the left but no ureteral stone. While waiting in the emergency room the patient fell asleep and did not seem uncomfortable at all. She seemed comfortable with the prospect of being discharged. Lab Data 10/14/24 23:13 10/14/24 23:13 Labs: Lab Results 10/14/24 10/14/24 Range/Units 22:43 23:13 WBC 8.9 (4.8-10.8) X10*3/uL RBC 4.66 (4.20-5.50) X10*6/uL Hgb 13.8 (12.0-16.0) g/dl Hct 38.6 (37.0-47.0) % MCV 82.8 (80.0-98.0) fL MCH 29.6 (27.0-33.0) pg MCHC 35.8 H (31.0-35.0) g/dl RDW 13.1 (11.0-16.0) % Plt Count 300 (160-400) X10*3/uL MPV 8.9 L (9.4-12.3) fL Immature Gran % (Auto) 0.2 (0.0-0.4) % Neut % (Auto) 59.4 (45-73) % Lymph % (Auto) 32.2 (20-40) % [place] % (Auto) 6.7 (2-11) % Eos % (Auto) 1.0 (0-4) % Baso % (Auto) 0.5 (0-2) % Lymph # (Auto) 2.9 (1.2-4.9) X10*3/uL [place] # (Auto) 0.6 (0.1-1.2) X10*3/uL Eos # (Auto) 0.1 (0.0-0.4) X10*3/uL Baso # (Auto) 0.0 (0.0-0.2) X10*3/uL Abs Immat Gran (auto) 0.02 (0.00-0.03) X10*3/uL Absolute Neuts (auto) 5.3 (2.0-8.3) x10*3/uL Absolute Nucleated RBC 0.000 (0.0-0.012) X10*3/uL Nucleated RBC % (auto) 0.0 (0.0-0.2) /100WBC Sodium 140 (135-145) mmol/L Potassium 3.4 (3.3-5.1) mmol/L Chloride 108 (96-108) mmol/L Carbon Dioxide 25 (22-29) mmol/L Anion Gap 10 L (12-20) BUN 11 (9-16) mg/dL Creatinine 0.76 (0.5-1.4) mg/dL Estim Creat Clear Calc 121.2 Estimated GFR > 60 Random Glucose 86 (60-115) mg/dL Calcium 8.9 D (8.4-10.2) mg/dL Total Bilirubin 0.5 (0.0-1.0) mg/dL AST 20 (5-31) U/L ALT 14 (0-31) U/L Alkaline Phosphatase 88 (39-117) U/L Total Protein 6.5 (6.5-8.0) g/dL Albumin 4.2 (3.5-5.0) g/dL Lipase 24 (8-78) U/L Beta HCG, Quant < 2 mIU/mL Urine Color Yellow Urine Appearance Clear Urine pH 6.0 (5.0-9.0) Ur Specific [place] 1.025 (1.005-1.025) Urine Protein Negative (Neg-Trace) mg/dL Urine Glucose (UA) Negative (Negative) mg/dL Urine Ketones Trace (Negative) mg/dL Urine Blood Negative (Negative) Urine Nitrite Negative (Negative) Ur Leukocyte Esterase Trace H (Negative) Urine RBC 0-2 (0-2) /HPF Urine WBC 0-5 (0-5) /HPF Ur Squamous Epith Cells 3-5 (0-2) /HPF Urine Bacteria Trace (None Seen) Hyaline Casts 0-2 (0-2) /LPF Discharge Plan Discharge Clinical Impression: Left flank pain Patient Disposition: Home, Self-Care Additional Instructions: Your testing today does not reveal any dangerous process. There is a kidney stone within the body of your left kidney but stones within the kidney do not cause symptoms. This kidney stone may cause problems in the future but it would not explain any symptoms today. Please drink lot of fluids and rest and take it easy. Follow up with your regular doctor if symptoms continue. Return to the emergency room if worse. Prescriptions: No Action lamotrigine 150 mg Tablet 150 mg PO DAILY doxepin 50 mg Capsule 50 mg PO DAILY verapamil 40 mg Tablet 40 mg PO DAILY pantoprazole 40 mg Tablet,Delayed Release (Dr/Ec) 40 mg PO DAILY ondansetron 4 mg Tablet,Disintegrating 4 mg PO Q6H PRN (Reason: Nausea And Vomiting) multivitamin Capsule olanzapine [Zyprexa] 20 mg Tablet 20 mg PO DAILY cholecalciferol (vitamin D3) [Vitamin D3] 25 mcg (1,000 unit) Capsule 25 mcg PO DAILY ferrous sulfate 324 mg (65 mg iron) Tablet,Delayed Release (Dr/Ec) 324 mg PO DAILY sulfamethoxazole-trimethoprim [Bactrim DS] 800-160 mg tablet 1 tab PO BID Qty: 14 0RF nitrofurantoin monohyd/m-cryst [Macrobid] 100 mg capsule 100 mg PO Q12H 7 Days Qty: 14 0RF Rx Instructions: must administer with a meal/food tranexamic acid 650 mg tablet 650 mg PO BID 5 Days Qty: 10 0RF ondansetron 4 mg tablet,disintegrating 4 mg PO Q6-8H PRN (Reason: nausea and vomiting) Qty: 14 0RF oxycodone 5 mg tablet 5 mg PO Q4H PRN (Reason: pain) Qty: 14 0RF Rx Instructions: Patient may request partial fill ferrous sulfate 325 mg (65 mg iron) tablet 325 mg PO TID 60 Days Qty: 180 0RF morphine 15 mg tablet 15 mg PO Q6H PRN (Reason: pain) 3 Days Qty: 8 0RF ondansetron 4 mg tablet,disintegrating 4 mg PO Q8H PRN (Reason: nausea and vomiting) Qty: 20 0RF nitrofurantoin monohyd/m-cryst [Macrobid] 100 mg capsule 100 mg PO BID 7 Days Qty: 14 0RF Rx Instructions: must administer with a meal/food pantoprazole [Protonix] 40 mg tablet,delayed release (DR/EC) 40 mg PO DAILY Qty: 30 0RF meclizine 25 mg tablet 25 mg PO BID PRN (Reason: dizziness) Qty: 14 0RF nitrofurantoin monohyd/m-cryst [Macrobid] 100 mg capsule 100 mg PO BID 5 Days Qty: 10 0RF Rx Instructions: must administer with a meal/food meclizine 25 mg tablet 25 mg PO TID PRN (Reason: dizziness) Qty: 20 0RF lorazepam [Ativan] 1 mg tablet 1 mg PO BEDTIME PRN (Reason: dizziness or vertigo) Qty: 7 0RF nitrofurantoin monohyd/m-cryst [Macrobid] 100 mg capsule 100 mg PO Q12H 5 Days Qty: 10 0RF Rx Instructions: must administer with a meal/food tranexamic acid 650 mg tablet 1,300 mg PO TID 5 Days Qty: 30 0RF cefuroxime axetil 500 mg tablet 500 mg PO BID Qty: 13 0RF clotrimazole-betamethasone 1-0.05 % cream 1 appl topical BID 7 Days Qty: 45 0RF phenazopyridine 100 mg tablet 100 mg PO TID Qty: 6 0RF nitrofurantoin monohyd/m-cryst [Macrobid] 100 mg capsule 100 mg PO Q12H 5 Days Qty: 10 0RF Rx Instructions: must administer with a meal/food ondansetron 4 mg tablet,disintegrating 4 mg PO Q6-8H PRN (Reason: nausea and vomiting) Qty: 7 0RF cefuroxime axetil 500 mg tablet 500 mg PO Q12H 7 Days Qty: 14 0RF cyclobenzaprine 10 mg tablet 10 mg PO TID PRN (Reason: muscle spasm) Qty: 20 0RF lidocaine 5 % gel 1 ea topical BID PRN (Reason: pain) Qty: 10 0RF cefuroxime axetil 500 mg tablet 500 mg PO BID Qty: 14 0RF phenazopyridine 100 mg tablet 100 mg PO TID Qty: 6 0RF Interventions: ED Discharge Assessment Last Done: 10/15/24 02:13 Discharge Date/Time: 10/15/24 02:13 Print Language: Occitan
[2024-10-14 23:44] LABS: Alanine Aminotransferase 14 U/L (0-31); Albumin Level 4.2 g/dL (3.5-5.0); Alkaline Phosphatase 88 U/L (39-117); Anion Gap 10 (12-20); Aspartate Amino Transferase 20 U/L (5-31); Bilirubin Total 0.5 mg/dL (0.0-1.0); Blood Urea Nitrogen 11 mg/dL (9-16); Calcium 8.9 mg/dL (8.4-10.2); Carbon Dioxide 25 mmol/L (22-29); Chloride 108 mmol/L (96-108); Creatinine Clr Calc Pharmacy 121.2; Estimated Glomerular Filt Rate > 60; Glucose Random 86 mg/dL (60-115); Lipase 24 U/L (8-78); Potassium 3.4 mmol/L (3.3-5.1); Sodium 140 mmol/L (135-145); Total Protein 6.5 g/dL (6.5-8.0)
[2024-10-14] MEDS: Ondansetron ODT 4 MG TAB.RAPDIS TRANSLINGU (23:53)
[2024-10-15 00:08] VITALS: BP 119/80; PULSE 95; RESP 16; TEMP 36.6; O2SAT 99
[2024-10-15 00:10] LABS: HCG Quantitative < 2 mIU/mL
[2024-10-15 02:13] VITALS: BP 119/80; PULSE 95; RESP 16; TEMP 36.6; O2SAT 99
== END 2024-10-15 02:13 | disposition home or self-care (01) ==
PROVIDERS: Emergency Provider Emergency Medicine; PCP Internal Medicine
DX: R10.9 Unspecified abdominal pain (principal); R30.0 Dysuria; R10.2 Pelvic and perineal pain; Z87.442 Personal history of urinary calculi; Z79.899 Other long term (current) drug therapy
CPT/HCPCS: 36415; 74176; 80053; 81001; 83690; 84702; 85025; 99284

== ENCOUNTER → 2024-10-15 | Outpatient (BNV) | payer OTHER, SELFPAY | PROVIDERS: Emergency Provider Emergency Medicine; PCP Internal Medicine; Visit Provider Radiology Diagnostic Radiology | DX: N20.0 Calculus of kidney (principal); N83.202 Unspecified ovarian cyst, left side | CPT/HCPCS: 74176 ==

== ENCOUNTER 2024-11-21 23:10 | Inpatient (IN) | payer OTHER, SELFPAY ==
[2024-11-21 23:14] VITALS: BP 132/100; PULSE 79; RESP 20; TEMP 36.6; O2SAT 97; BMI 31.9
[2024-11-21 23:32] LABS: MANUAL DIFF FLAG NO
[2024-11-21 23:33] LABS: Basophils Percent Auto 0.4 % (0-2); Eosinophils Absolute Auto 0.1 X10*3/uL (0.0-0.4); Eosinophils Percent Auto 1.1 % (0-4); Hematocrit 40.2 % (37.0-47.0); Hemoglobin 14.2 g/dl (12.0-16.0); Imm Gran Abs Auto 0.03 X10*3/uL (0.00-0.03); Imm Gran Pct Auto 0.4 % (0.0-0.4); Lymphocytes Absolute Auto 2.8 X10*3/uL (1.2-4.9); Lymphocytes Percent Auto 33.9 % (20-40); Mean Corpuscular HGB Conc 35.3 g/dl (31.0-35.0); Mean Corpuscular Volume 82.2 fL (80.0-98.0); Monocytes Absolute Auto 0.6 X10*3/uL (0.1-1.2); Monocytes Percent Auto 7.1 % (2-11); Neutrophils Absolute Auto 4.7 x10*3/uL (2.0-8.3); Neutrophils Percent Auto 57.1 % (45-73); Platelet Count 318 X10*3/uL (160-400); Red Blood Count 4.89 X10*6/uL (4.20-5.50); Red Cell Distribution Width 12.6 % (11.0-16.0); White Blood Count 8.2 X10*3/uL (4.8-10.8)
--- NOTE | 2024-11-21 23:40 | ED_ITS ---
HPI - General Adult General Chief complaint: Psychiatric Symptoms Stated complaint: SI Time Seen by Provider: 11/21/24 23:40 History of Present Illness ED Provider: Uziel VILLALBA narrative: The patient is a 44-year-old woman with a history of bipolar disorder. 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 She has a boyfriend whom she describes as her fiance. She and her fiance recently moved in together in a new apartment in [place]. The this was about 1-2 weeks ago. Prior to that she has been living with her father for a few years. She says that she was looking forward to moving in with her fiance but she has not been happy about the apartment which she feels is not a very nice apartment. She also says that she has been under stress at work. Her boss is planning on going away on vacation and she feels she will be in charge which he has findings stressful. She has therefore been feeling upset and under stress recently. Today she was on her phone while driving and got pulled over by police. She was given warning but she found the encounter very upsetting. Tonight she was feeling so bad that she thought she was attempted to try to overdose on pills to kill herself. She told her fiance and her fiance drove her to the hospital here for care. She has been hospitalized in the past. She wants help. She says that she has been on a diet pill to suppress her appetite for the last several months. She feels like she is doing very little in the way of eating recently. She feels that she has been having easy bruising for no apparent reason recently as well. She says that she went to the [facility] earlier today and had blood testing that was unremarkable. Related Data Home Medications ?Medication ?Instructions ?Recorded ?Confirmed cholecalciferol (vitamin D3) 25 25 mcg PO DAILY 10/22/20 11/22/24 mcg (1,000 unit) capsule (Vitamin D3) ferrous sulfate 324 mg (65 mg 324 mg PO BID 10/22/20 11/22/24 iron) tablet,delayed release lamotrigine 150 mg tablet 150 mg PO DAILY 10/22/20 11/22/24 olanzapine 20 mg tablet (Zyprexa) 20 mg PO BEDTIME 10/22/20 11/22/24 pantoprazole 40 mg tablet,delayed 40 mg PO DAILY 10/22/20 11/22/24 release nitrofurantoin macrocrystal 100 mg 100 mg PO DAILY PRN UTI PREVENTION 11/22/24 11/22/24 capsule trazodone 100 mg tablet 200 mg PO BEDTIME 11/22/24 11/22/24 Previous Rx's ?Medication ?Instructions ?Recorded clotrimazole-betamethasone 1 1 appl topical BID 1 week #45 grams 02/17/24 %-0.05 % topical cream Allergies Allergy/AdvReac Type Severity Reaction Status Date / Time Penicillins Allergy Mild HIVES Verified 11/21/24 23:15 naproxen [NAPROXEN] Allergy Unknown BLEEDING Verified 11/21/24 23:15 penicillin V Allergy Unknown Hives Verified 11/21/24 23:15 Review of Systems 2 Review of Systems: Yes all other systems are reviewed and are negative [facility] Past Medical History Medical History PTSD (post-traumatic stress disorder) Bipolar 1 disorder Anxiety delivery delivered Surgical History Gastric bypass status for obesity Tubal ligation status Social History Social History Household Members: Significant Other Housing: Apartment Do you presently have visiting nurse or other home services: No Alcohol intake: never Patient Tobacco Use Status: Never used Tobacco Smoked in Last 30 Days: No Use of substances other than those prescribed or required for medical reasons: No Substance Use Type: Marijuana Have you been hit, kicked, punched, or otherwise hurt by someone within the past year? If so, by whom?: No Do you feel safe in your current relationship?: No Is there a partner from a previous relationship who is making you feel unsafe now?: No Are you made to feel afraid or neglected: No Advance Directives: No Advance Directives Information Provided: Yes Do you have a plan to hurt others: No Plan Recently lost weight without trying: No How much weight loss: Not applicable Eating poorly because of decreased appetite: No Nutrition screen score: 0 Nutrition Risks: No Nutritional Risk Patient : No : No Poor oral hygiene: No Physical Exam ED Vital Signs: Vital Signs - 24 hr 11/21/24 23:14 Temperature 97.8 F Pulse Rate 79 Respiratory Rate 20 Blood Pressure 132/100 H Pulse Oximetry 97 Oxygen Delivery Method Room Air BMI result Body Mass Index 31.9 Const Other: The patient is awake, alert, pleasant, cooperative. The patient is quite tearful and upset but otherwise nontoxic. Orientation/consciousness: patient oriented x3 HENMT Other: Face is symmetrical. Mucous membranes moist. Eyes General: appearance normal, both eyes and all related structures Neck Neck: Yes normal visual inspection and Yes full ROM Resp Effort & Inspection: normal respiratory effort Auscultation: clear to auscultation bilaterally Cardio Rate: regular rate Rhythm: regular rhythm Heart sounds: S1 normal heart sound present and S2 normal heart sound present GI Other: Abdomen is soft and nontender Skin Other: Skin is dry and unremarkable General skin exam: no rashes or lesions noted Neuro General: patient oriented x3, gait normal, tone normal, moves all extremities, no focal motor deficits and CN's II-XI intact bilaterally Extrem Other: No peripheral edema Psych Other: The patient is tearful but makes good eye contact. She seems very sad. She is here voluntarily looking for help. Course Reevaluation(s) Reevaluation #1: 11/22/2024 DR. Carlin's Progress note: AAO x3 care team input is appreciated, VSS, no issue overnight by nursing, bed search is underway. Time: 09:35 Medications Administered Generic Name Dose Route Start Last Admin Trade Name Freq PRN Reason Stop Dose Admin Ferrous Sulfate 324 mg 11/22/24 21:00 11/22/24 20:42 Ferrous Sulfate 324 Mg Tablet. PO 324 mg BID SAM Administration Lamotrigine 150 mg 11/22/24 09:15 11/22/24 09:25 Lamotrigine 25 Mg Tablet PO 150 mg DAILY SAM Administration Nystatin 1 appl 11/22/24 16:15 11/22/24 20:42 Nystatin Cream 15 Gm Tube TOPICAL 1 appl BID SAM Administration Protocol Olanzapine 20 mg 11/22/24 21:00 11/22/24 20:42 Olanzapine 10 Mg Tablet PO 20 mg BEDTIME SAM Administration Omeprazole 20 mg 11/22/24 09:30 11/22/24 09:25 Omeprazole 20 Mg Capsule. PO 20 mg DAILY@0630 SAM Administration Trazodone HCl 200 mg 11/22/24 21:00 11/22/24 20:42 Trazodone Hcl 100 Mg Tablet PO 200 mg BEDTIME SAM Administration Vitamin D 25 mcg 11/22/24 09:15 11/22/24 09:25 Cholecalciferol (Vitamin D3) 25 Mcg Tablet PO 25 mcg DAILY SAM Administration Discontinued Medications Generic Name Dose Route Start Last Admin Trade Name Jass PRN Reason Stop Dose Admin Ferrous Sulfate 324 mg 11/22/24 09:15 11/22/24 09:25 Ferrous Sulfate 324 Mg Tablet. PO 324 mg DAILY SAM Administration Lorazepam 2 mg 11/22/24 02:41 11/22/24 02:44 Lorazepam 1 Mg Tablet PO 11/22/24 02:42 2 mg ONCE ONE Administration Trazodone HCl 100 mg 11/22/24 00:31 11/22/24 00:34 Trazodone Hcl 100 Mg Tablet PO 11/22/24 00:32 100 mg ONCE ONE Administration Medical Decision Making Medical Decision Making MDM Narrative: The patient is a 44-year-old female with a history of bipolar disorder who presents with acutely worsening symptoms of depression and thoughts about possibly overdosing to kill herself. She has not overdosed or done anything else to harm herself she says. She came to the emergency room because she does not want to harm herself. She is here voluntarily. Clinically the patient seems medically stable. Recent stressors include moving into a new apartment with her fiance after moving out of her father's house. She is also describing job stressors. She also had an encounter with the police today when she was pulled over for driving while talking on her phone. Additionally she has had issues with weight loss (she has a history of bariatric surgery and says she has been on some kind of prescribed ?diet pill? which has been affecting her appetite over the last few months. The patient's medical workup was unremarkable. The patient is medically clear for evaluation and disposition by the care team. A care team consult has been placed. The patient will be placed in physician observation pending evaluation by the care team. Lab Data 11/21/24 23:26 11/21/24 23:26 Labs: Lab Results 11/21/24 11/21/24 11/21/24 Range/Units 23:26 23:55 23:56 WBC 8.2 (4.8-10.8) X10*3/uL RBC 4.89 (4.20-5.50) X10*6/uL Hgb 14.2 (12.0-16.0) g/dl Hct 40.2 (37.0-47.0) % MCV 82.2 (80.0-98.0) fL MCH 29.0 (27.0-33.0) pg MCHC 35.3 H (31.0-35.0) g/dl RDW 12.6 (11.0-16.0) % Plt Count 318 (160-400) X10*3/uL MPV 9.0 L (9.4-12.3) fL Immature Gran % (Auto) 0.4 (0.0-0.4) % Neut % (Auto) 57.1 (45-73) % Lymph % (Auto) 33.9 (20-40) % [place] % (Auto) 7.1 (2-11) % Eos % (Auto) 1.1 (0-4) % Baso % (Auto) 0.4 (0-2) % Lymph # (Auto) 2.8 (1.2-4.9) X10*3/uL [place] # (Auto) 0.6 (0.1-1.2) X10*3/uL Eos # (Auto) 0.1 (0.0-0.4) X10*3/uL Baso # (Auto) 0.0 (0.0-0.2) X10*3/uL Abs Immat Gran (auto) 0.03 (0.00-0.03) X10*3/uL Absolute Neuts (auto) 4.7 (2.0-8.3) x10*3/uL Absolute Nucleated RBC 0.000 (0.0-0.012) X10*3/uL Nucleated RBC % (auto) 0.0 (0.0-0.2) /100WBC Sodium 141 (135-145) mmol/L Potassium 3.3 (3.3-5.1) mmol/L Chloride 109 H (96-108) mmol/L Carbon Dioxide 24 (22-29) mmol/L Anion Gap 11 L (12-20) BUN 4 L (9-16) mg/dL Creatinine 0.63 (0.5-1.4) mg/dL Estim Creat Clear Calc 144.8 Estimated GFR > 60 Random Glucose 96 (60-115) mg/dL Calcium 8.8 (8.4-10.2) mg/dL Total Bilirubin 0.4 (0.0-1.0) mg/dL AST 23 (5-31) U/L ALT 17 (0-31) U/L Alkaline Phosphatase 87 (39-117) U/L Total Protein 6.5 (6.5-8.0) g/dL Albumin 4.2 (3.5-5.0) g/dL Beta HCG, Quant < 2 mIU/mL Urine Color Yellow Urine Appearance Clear Urine pH 7.0 (5.0-9.0) Ur Specific [place] <= 1.005 (1.005-1.025) Urine Protein Negative (Neg-Trace) mg/dL Urine Glucose (UA) Negative (Negative) mg/dL Urine Ketones Negative (Negative) mg/dL Urine Blood Negative (Negative) Urine Nitrite Negative (Negative) Ur Leukocyte Esterase Small (1+) H (Negative) Urine RBC 0-2 (0-2) /HPF Urine WBC 6-10 H (0-5) /HPF Ur Squamous Epith Cells 6-10 (0-2) /HPF Urine Bacteria Trace (None Seen) Hyaline Casts 0-2 (0-2) /LPF Urine Opiates Screen Not Detected (Not Detect) Ur Buprenorphine Scrn Not Detected (Not Detect) ng/mL Ur Oxycodone Screen Not Detected (Not Detect) ng/mL Urine Methadone Screen Not Detected (Not Detect) ng/mL Urine Fentanyl Screen Not Detected (Not Detect) Ur Barbiturates Screen Not Detected (Not Detect) Ur Phencyclidine Scrn Not Detected (Not Detect) Ur Amphetamines Screen Not Detected (Not Detect) U Benzodiazepines Scrn Not Detected (Not Detect) Urine Cocaine Screen Not Detected (Not Detect) U Marijuana (THC) Screen Not Detected (Not Detect) Ethyl Alcohol < 10 mg/dL Discharge Plan Discharge Clinical Impression: Depression, Bipolar disorder Patient Disposition: Admitted As Inpatient Interventions: Admission Worksheet (ED) Last Done: 11/22/24 13:15 Discharge Date/Time: 11/22/24 15:05
[2024-11-21 23:58] LABS: Alanine Aminotransferase 17 U/L (0-31); Albumin Level 4.2 g/dL (3.5-5.0); Alkaline Phosphatase 87 U/L (39-117); Anion Gap 11 (12-20); Aspartate Amino Transferase 23 U/L (5-31); Bilirubin Total 0.4 mg/dL (0.0-1.0); Blood Urea Nitrogen 4 mg/dL (9-16); Calcium 8.8 mg/dL (8.4-10.2); Carbon Dioxide 24 mmol/L (22-29); Chloride 109 mmol/L (96-108); Creatinine Clr Calc Pharmacy 144.8; Estimated Glomerular Filt Rate > 60; Glucose Random 96 mg/dL (60-115); Potassium 3.3 mmol/L (3.3-5.1); Sodium 141 mmol/L (135-145); Total Protein 6.5 g/dL (6.5-8.0)
--- NOTE | 2024-11-22 | ECG_ITS ---
Test Reason : check prolonged qt Blood Pressure : */* mmHG Vent. Rate : 75 BPM Atrial Rate : 75 BPM P-R Int : 126 ms QRS Dur : 80 ms QT Int : 394 ms P-R-T Axes : 8 23 24 degrees QTcB Int : 439 ms Normal sinus rhythm Normal ECG When compared with ECG of 02-Sep-2023 20:33, No significant change was found Referred By: Andrea Carlin Electronically Signed By: Lucas Rudd
--- NOTE | 2024-11-22 00:07 | PC.NURSE ---
t/w asked jenise about preferred pharmacy whih she stated was [facility], last took meds in am per patient
[2024-11-22 00:08] LABS: Appearance Urine Clear; Color Urine Yellow; Glucose Urine UA Negative (Negative); Leukocyte Esterase Urine Small (1+) (Negative); Nitrite Urine Negative (Negative); Specific Gravity - Urine <= 1.005 (1.005-1.025); UMIC TRIGGER UACC YES; Urine Blood Negative (Negative); Urine Ketones Negative (Negative); Urine Protein Negative (Neg-Trace)
[2024-11-22 00:10] LABS: Bacteria Urine Trace (None Seen); Hyaline Casts Urine 0-2 /LPF (0-2); RBC Urine 0-2 /HPF (0-2); UACC Culture Trigger YES
[2024-11-22 00:16] LABS: Ethanol < 10 mg/dL
[2024-11-22 00:17] LABS: HCG Quantitative < 2 mIU/mL
[2024-11-22 00:21] LABS: Amphetamine Screen Urine Not Detected (Not Detect); Barbiturates, Urine Not Detected (Not Detect); Benzodiazepines Screen Urine Not Detected (Not Detect); Buprenorphine Scr Not Detected (Not Detect); Cannabinoid Screen Urine Not Detected (Not Detect); Cocaine Screen Urine Not Detected (Not Detect); Fentanyl, urine Not Detected (Not Detect); Methadone Screen, Urine Not Detected (Not Detect); Opiate Screen Urine Not Detected (Not Detect); Oxycodone Screen Urine Not Detected (Not Detect); Phencyclidine Screen Urine Not Detected (Not Detect)
[2024-11-22] MEDS: traZODone HCL 100 MG TABLET PO (00:34)
[2024-11-22] MEDS: LORazepam 1 MG TABLET 2 MG PO (02:44)
--- NOTE | 2024-11-22 06:36 | PC.NURSE ---
late entry, correction, later patient had correted herself and stated she last took medicines around 1700 on 11/21/24
[2024-11-22] MEDS: Ferrous Sulfate 324 MG TABLET.DR PO ×2 (09:25→20:42)
[2024-11-22] MEDS: lamoTRIgine 25 MG TABLET 150 MG PO (09:25)
[2024-11-22] MEDS: Cholecalciferol (Vitamin D3) 25 MCG TABLET PO (09:25)
[2024-11-22] MEDS: Omeprazole 20 MG CAPSULE.DR PO (09:25)
--- NOTE | 2024-11-22 09:25 | MHC.CARE ---
Pt will be an inpatient bedsearch
--- NOTE | 2024-11-22 10:16 | PHA.MEDREC ---
Pharmacy Consult ? Medication Reconciliation Pharmacy has completed the medication reconciliation. Spoke to patient to confirm med list. Per patient, she takes clotrimazole-betamethasone prn rash, ferrous sulfate twice a day, nitrofurantoin is daily prn uti prevention after intercourse. She does not take phentermine nor topiramate.
[2024-11-22 12:54] VITALS: BP 128/81; PULSE 80; RESP 18; TEMP 36.6; O2SAT 99
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
[2024-11-22 20:00] VITALS: BP 132/82; PULSE 100; TEMP 36.6; O2SAT 99
[2024-11-22] MEDS: Nystatin Cream 15 GM TUBE 1 APPL TOPICAL (20:42)
[2024-11-22] MEDS: traZODone HCL 100 MG TABLET 200 MG PO (20:42)
[2024-11-22] MEDS: OLANZapine 10 MG TABLET 20 MG PO (20:42)
[2024-11-23 08:00] VITALS: BP 127/78; PULSE 91; RESP 16; TEMP 36.4; O2SAT 97
[2024-11-23 08:07] LABS: Cholesterol 131 mg/dL (<200); HDL Cholesterol 56 mg/dL (>40); LDL Cholesterol Calculated 61 mg/dL (<100); Magnesium 2.2 mg/dL (1.6-2.6); Triglycerides 70 mg/dL (<150)
[2024-11-23 08:20] LABS: Estimated Average Glucose 94 mg/dL; Hemoglobin A1C 108.7677 umol/L; Hemoglobin A1c % 4.9 % (<6.0); Total Hemoglobin (HGBA1C) 3616.3489 umol/L
[2024-11-23 08:23] LABS: Free T4 (Free Thyroxine) 1.07 ng/dL (0.71-1.85); Thyroid Stimulating Hormone 1.75 uIU/mL (0.32-4.0)
[2024-11-23] MEDS: lamoTRIgine 25 MG TABLET 150 MG PO (08:31)
[2024-11-23] MEDS: Omeprazole 20 MG CAPSULE.DR PO (08:31)
[2024-11-23] MEDS: Ferrous Sulfate 324 MG TABLET.DR PO ×2 (08:32→20:53)
[2024-11-23] MEDS: Nystatin Cream 15 GM TUBE 1 APPL TOPICAL (08:32)
[2024-11-23] MEDS: Cholecalciferol (Vitamin D3) 25 MCG TABLET PO (08:32)
[2024-11-23 08:35] LABS: Folate 4.8 ng/mL (> or = 4.0); Vitamin B12 281 pg/mL (200-900)
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
[2024-11-23 19:43] VITALS: BP 133/87; PULSE 94; RESP 16; TEMP 36.6; O2SAT 98
[2024-11-23] MEDS: traZODone HCL 100 MG TABLET 200 MG PO (20:53)
[2024-11-23] MEDS: OLANZapine 10 MG TABLET 20 MG PO (20:53)
[2024-11-24 07:00] VITALS: BMI 32.1
[2024-11-24 07:54] VITALS: BP 135/89; PULSE 76; RESP 18; TEMP 36.4; O2SAT 98
[2024-11-24] MEDS: Ferrous Sulfate 324 MG TABLET.DR PO ×2 (08:07→20:56)
[2024-11-24] MEDS: Cholecalciferol (Vitamin D3) 25 MCG TABLET PO (08:07)
[2024-11-24] MEDS: Omeprazole 20 MG CAPSULE.DR PO (08:07)
[2024-11-24] MEDS: lamoTRIgine 25 MG TABLET 150 MG PO (08:07)
[2024-11-24] MEDS: Nystatin Cream 15 GM TUBE 1 APPL TOPICAL ×2 (08:14→20:59)
[2024-11-24] MEDS: Magnesium Hydrox/Alum Hydrox 30 ML ORAL.SUSP PO (08:27)
[2024-11-24] MEDS: Ondansetron ODT 4 MG TAB.RAPDIS TRANSLINGU (09:26)
--- NOTE | 2024-11-24 10:08 | HO.PSYCHPN ---
Subjective Subjective Date of Service: 11/24/24 Reason For Visit: Bipolar Disorder Subjective Notes: 3 Day Healthcare Proxy: No Guardianship: No Medical Problems Affecting Mental Status: No Interim History: Patient states that she is in a happy mood today. Her boss will visit her this afternoon and her fiance will visit later in the evening. 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 She is experiencing mild anxiety and depression. She slept throughout the night. She feels safe to return home. She currently denies SI/HI/AVH. Medication Compliance: Yes Side effects from medications: No Attending Groups: Intermittent Review of Systems Acute medical concerns: No Medical Review of Systems: unchanged Mental Status Exam Mental Status Exam Narrative: Narrative: Appearance: Casually dressed Behavior: Pleasant, calm and cooperative throughout the interview. Eye contact is appropriate, and there are no signs of psychomotor agitation or retardation Speech: Normal volume and prosody Thought process logical and goal-directed Thought content: Future oriented no self-harming thoughts Mood: Happy Affect: Full, mood-congruent SI:denies HI:denies VH/AH:none Delusions: None Insight/judgment: Fair insight and judgment Memory/cog: Alert, oriented x 4. grossly intact to conversational testing Diagnostics Vital Signs (24Hr): Vital Signs - 24 hr 11/23/24 19:43 11/24/24 07:54 Temperature 97.8 F 97.5 F Pulse Rate 94 76 Respiratory Rate 16 18 Blood Pressure 133/87 135/89 Pulse Oximetry 98 98 Oxygen Delivery Method Room Air Room Air BMI result Body Mass Index 32.1 Labs 11/21/24 23:26 11/21/24 23:26 Labs: Laboratory Results - last 48 hr 11/23/24 07:20 Estimat Average Glucose 94 Hemoglobin A1c % 4.9 Magnesium 2.2 Triglycerides 70 Cholesterol 131 LDL Cholesterol, Calc 61 HDL Cholesterol 56 Vitamin B12 281 Folate 4.8 TSH 1.75 Free T4 1.07 Medications Medications Current Medications Acetaminophen (Acetaminophen 325 Mg Tablet) 650 mg PO Q6H PRN PRN Reason: Headache/Pain, Scale 1-10 Al Hydroxide/Mg Hydroxide (Magnesium Hydrox/Alum Hydrox 30 Ml Oral.Susp) 30 ml PO Q6H PRN PRN Reason: Heartburn/Nausea Last Admin: 11/24/24 08:27 Dose: 30 ml Clotrimazole (Clotrimazole 1 % Cream 15 Gm Tube) 1 appl TOPICAL BID PRN PRN Reason: Rash Ferrous Sulfate (Ferrous Sulfate 324 Mg Tablet.Dr) 324 mg PO BID [facility] Last Admin: 11/24/24 08:07 Dose: 324 mg Hydroxyzine HCl (Hydroxyzine Hcl 25 Mg Tablet) 25 mg PO Q6H PRN PRN Reason: mild anxiety Lamotrigine (Lamotrigine 25 Mg Tablet) 150 mg PO DAILY [facility] Last Admin: 11/24/24 08:07 Dose: 150 mg Magnesium Hydroxide (Milk Of Magnesia 30 Ml Oral.Susp) 30 ml PO DAILY PRN PRN Reason: Constipation Nicotine Polacrilex (Nicotine Polacrilex 2 Mg Gum) 4 mg BUCCAL Q2H PRN PRN Reason: Nicotine Cravings Nystatin (Nystatin Cream 15 Gm Tube) 1 appl TOPICAL BID [facility]; Protocol Last Admin: 11/24/24 08:14 Dose: 1 appl Olanzapine (Olanzapine 10 Mg Tablet) 20 mg PO BEDTIME [facility] Last Admin: 11/23/24 20:53 Dose: 20 mg Omeprazole (Omeprazole 20 Mg Capsule.Dr) 20 mg PO DAILY@0630 [facility] Last Admin: 11/24/24 08:07 Dose: 20 mg Ondansetron HCl (Ondansetron Odt 4 Mg Tab.Rapdis) 4 mg TRANSLINGU Q6H PRN PRN Reason: Nausea and Vomiting Last Admin: 11/24/24 09:26 Dose: 4 mg Trazodone HCl (Trazodone Hcl 100 Mg Tablet) 200 mg PO BEDTIME [facility] Last Admin: 11/23/24 20:53 Dose: 200 mg Triamcinolone Acetonide (Triamcinolone Acet 0.5 % Cream 15 Gm Tube) 1 appl TOPICAL BID PRN PRN Reason: Rash Vitamin D (Cholecalciferol (Vitamin D3) 25 Mcg Tablet) 25 mcg PO DAILY [facility] Last Admin: 11/24/24 08:07 Dose: 25 mcg Allergies Allergies Allergy/AdvReac Type Severity Reaction Status Date / Time Penicillins Allergy Mild HIVES Verified 11/21/24 23:15 naproxen [NAPROXEN] Allergy Unknown BLEEDING Verified 11/21/24 23:15 penicillin V Allergy Unknown Hives Verified 11/21/24 23:15 Assessment & Plan Assessment & Plan (1) Bipolar 1 disorder: Status: Acute Code(s): F31.9 - Bipolar disorder, unspecified Plan 44-year-old female with history of anxiety, bipolar 1 disorder, and PTSD, presented to [facility] [place] [place] ED on 11/21/2024 for suicide ideation by using her medications to overdose in the face of significant work stressors. 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 Consequently, she is constantly tired and does not sleep well; she tosses and turns all night even though she is on trazodone 200 mg at bedtime. She has been taking her psychotropic medications as prescribed. She lives with her fiance. On 11/21/2024, she was feeling tired and depressed and told her fiance that maybe she should take a bottle of her psychotropic medications. Her fiance brother to the ED for further evaluation and treatment. She states that she did not intend to commit suicide, nor did she had suicide ideation. She wanted to take the pills to go to sleep. She stated that she has been feeling better since admission. She does not intend to return to her current job and her fiance supportive of that. She will stay home after she is discharged until she finds another job. She denies rosy or hypomania episodes. She currently denies SI, HI, AVH. She smokes marijuana twice monthly and denies order illicit drugs. Formulation/Clinical reasoning: Patient is likely experiencing depressive episodes due to significant work stressors; she has been feeling tired and depressed. She has also been experiencing sleep disturbances. No rosy or hypomania episodes. She has been taking her medications as prescribed and her symptoms have improved since admission. She does not plan to return to her current job; her plan is to return home to her fiancee and find a new job. No current SI, HI, AVH. She will continue her current treatment regimen. Advised to request p.r.n. hydroxyzine for anxiety or at bedtime to help with sleep if trazodone is not effective. Verbalized understanding and agreed with the plan. 11/24: Patient is in a happy mood. She reports mild anxiety and depressive symptoms. She feels safe to return home. No SI/HI/AVH. Will increase lamotrigine to 200 mg daily. Continue current treatment regime. Plan: Admit to M5. CV 15 minutes check. Diagnostics as needed. Collateral contact.. Continue remainder of regime. Encouraged full milieu. Discharge planning. Reason for continued inpatient stay Substantial Risk for: rapid decompensation Time Spent With Patient Time: Total time managing care of this patient today ____ minutes.
[2024-11-24 20:35] VITALS: BP 152/93; PULSE 89; TEMP 36.6; O2SAT 97
[2024-11-24] MEDS: OLANZapine 10 MG TABLET 20 MG PO (20:56)
[2024-11-24] MEDS: traZODone HCL 100 MG TABLET 200 MG PO (20:57)
[2024-11-24] MEDS: hydrOXYzine HCL 25 MG TABLET PO (21:56)
[2024-11-25] MEDS: Omeprazole 20 MG CAPSULE.DR PO (06:38)
[2024-11-25 07:53] VITALS: BP 109/63; PULSE 69; RESP 16; TEMP 36.9; O2SAT 95
[2024-11-25] MEDS: Cholecalciferol (Vitamin D3) 25 MCG TABLET PO (08:25)
[2024-11-25] MEDS: Ferrous Sulfate 324 MG TABLET.DR PO ×2 (08:25→21:06)
[2024-11-25] MEDS: lamoTRIgine 100 MG TABLET 200 MG PO (08:25)
--- NOTE | 2024-11-25 09:50 | HO.PSYCHPN ---
Subjective Subjective Date of Service: 11/25/24 Reason For Visit: Bipolar Disorder Subjective Notes: Conditional Voluntary and 3 Day Healthcare Proxy: No Guardianship: No Medical Problems Affecting Mental Status: No Interim History: Denies SI,HI,AH,VH. No sx of acute psychosis,rosy Review of meds, diagnostics B12 on the low side, 281, will offer thiamine Constipation reported, prn dulcolax, magnesium citrate Pt thinking VNA will help her when discharged, team is looking into this possiblity. Also looking for a therapist, hopes [facility] can provide one as her prescriber is there. Discussed precipitants to admission and what she is learning while on the unit. Discussion of boundaries, pt's questions responded to. Medication Compliance: Yes Side effects from medications: No Attending Groups: Yes Review of Systems Medical Review of Systems: unchanged Review of Systems Review of Systems constipation Mental Status Exam Mental Status Exam Patient Appearance: Appropriate Patient Orientation: Person, Place, Time and Situation Level of Consciousness: Alert Patient Behavior: Appropriate, Talkative, Cooperative and Good Eye Contact Mood Description: Apprehensive Affect Description: Apprehensive Patient Cognition Impaired: No Ability to Follow Directions: Good Speech Pattern: Spontaneous Speech Memory Description: Intact Hallucinations: None Delusions: Not Present Thought Process: Goal Oriented Thought Content: positive for Goal Oriented and positive for Suicidal Ideation (denies) Depressive Symptoms: Low Self Esteem Judgement: Good Diagnostics Vital Signs (24Hr): Vital Signs - 24 hr 11/24/24 20:35 11/25/24 07:53 Temperature 97.8 F 98.4 F Pulse Rate 89 69 Respiratory Rate 16 Blood Pressure 152/93 H 109/63 Pulse Oximetry 97 95 Oxygen Delivery Method Room Air Room Air BMI result Body Mass Index 32.1 Labs 11/21/24 23:26 11/21/24 23:26 Medications Medications Current Medications Acetaminophen (Acetaminophen 325 Mg Tablet) 650 mg PO Q6H PRN PRN Reason: Headache/Pain, Scale 1-10 Al Hydroxide/Mg Hydroxide (Magnesium Hydrox/Alum Hydrox 30 Ml Oral.Susp) 30 ml PO Q6H PRN PRN Reason: Heartburn/Nausea Last Admin: 11/24/24 08:27 Dose: 30 ml Clotrimazole (Clotrimazole 1 % Cream 15 Gm Tube) 1 appl TOPICAL BID PRN PRN Reason: Rash Ferrous Sulfate (Ferrous Sulfate 324 Mg Tablet.) 324 mg PO BID [facility]PLAC[facility] BY [facility] Last Admin: 11/25/24 08:25 Dose: 324 mg Hydroxyzine HCl (Hydroxyzine Hcl 25 Mg Tablet) 25 mg PO Q6H PRN PRN Reason: mild anxiety Last Admin: 11/24/24 21:56 Dose: 25 mg Lamotrigine (Lamotrigine 100 Mg Tablet) 200 mg PO DAILY [facility] Last Admin: 11/25/24 08:25 Dose: 200 mg Magnesium Hydroxide (Milk Of Magnesia 30 Ml Oral.Susp) 30 ml PO DAILY PRN PRN Reason: Constipation Nicotine Polacrilex (Nicotine Polacrilex 2 Mg Gum) 4 mg BUCCAL Q2H PRN PRN Reason: Nicotine Cravings Nystatin (Nystatin Cream 15 Gm Tube) 1 appl TOPICAL BID [facility]PLAC[facility]; Protocol Last Admin: 11/25/24 09:04 Dose: Not Given Olanzapine (Olanzapine 10 Mg Tablet) 20 mg PO BEDTIME [facility]PL[facility] Last Admin: 11/24/24 20:56 Dose: 20 mg Omeprazole (Omeprazole 20 Mg Capsule.) 20 mg PO DAILY@0630 [facility]PL[facility] Last Admin: 11/25/24 06:38 Dose: 20 mg Ondansetron HCl (Ondansetron Odt 4 Mg Tab.Rapdis) 4 mg TRANSLINGU Q6H PRN PRN Reason: Nausea and Vomiting Last Admin: 11/24/24 09:26 Dose: 4 mg Trazodone HCl (Trazodone Hcl 100 Mg Tablet) 200 mg PO BEDTIME [facility]PL[facility] Last Admin: 11/24/24 20:57 Dose: 200 mg Triamcinolone Acetonide (Triamcinolone Acet 0.5 % Cream 15 Gm Tube) 1 appl TOPICAL BID PRN PRN Reason: Rash Vitamin D (Cholecalciferol (Vitamin D3) 25 Mcg Tablet) 25 mcg PO DAILY [facility]PL[facility] Last Admin: 11/25/24 08:25 Dose: 25 mcg Allergies Allergies Allergy/AdvReac Type Severity Reaction Status Date / Time Penicillins Allergy Mild HIVES Verified 11/21/24 23:15 naproxen [NAPROXEN] Allergy Unknown BLEEDING Verified 11/21/24 23:15 penicillin V Allergy Unknown Hives Verified 11/21/24 23:15 Assessment & Plan Assessment & Plan (1) Bipolar 1 disorder: Status: Acute Code(s): F31.9 - Bipolar disorder, unspecified Plan 44-year-old female with history of anxiety, bipolar 1 disorder, and PTSD, presented to [facility] on 11/21/2024 for suicide ideation by using her medications to overdose in the face of significant work stressors. 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 Consequently, she is constantly tired and does not sleep well; she tosses and turns all night even though she is on trazodone 200 mg at bedtime. She has been taking her psychotropic medications as prescribed. She lives with her fiance. On 11/21/2024, she was feeling tired and depressed and told her fiance that maybe she should take a bottle of her psychotropic medications. Her fiance brother to the ED for further evaluation and treatment. She states that she did not intend to commit suicide, nor did she had suicide ideation. She wanted to take the pills to go to sleep. She stated that she has been feeling better since admission. She does not intend to return to her current job and her fiance supportive of that. She will stay home after she is discharged until she finds another job. She denies rosy or hypomania episodes. She currently denies SI, HI, AVH. She smokes marijuana twice monthly and denies order illicit drugs. Formulation/Clinical reasoning: Patient is likely experiencing depressive episodes due to significant work stressors; she has been feeling tired and depressed. She has also been experiencing sleep disturbances. No rosy or hypomania episodes. She has been taking her medications as prescribed and her symptoms have improved since admission. She does not plan to return to her current job; her plan is to return home to her fiancee and find a new job. No current SI, HI, AVH. She will continue her current treatment regimen. Advised to request p.r.n. hydroxyzine for anxiety or at bedtime to help with sleep if trazodone is not effective. Verbalized understanding and agreed with the plan. 11/24: Patient is in a happy mood. She reports mild anxiety and depressive symptoms. She feels safe to return home. No SI/HI/AVH. Will increase lamotrigine to 200 mg daily. Continue current treatment regime. 11/25: Constipation- prn Dulcolax, Magnesium Citrate B12 281- Thiamine 100 mg daily TDN to 11/29. Continue current tx Plan: Admit to M5. CV 15 minutes check. Diagnostics as needed. Collateral contact.. Continue remainder of regime. Encouraged full milieu. Discharge planning. Reason for continued inpatient stay Substantial Risk for: rapid decompensation Time Spent With Patient Time: Total time managing care of this patient today ____ minutes.
[2024-11-25] MEDS: Milk of Magnesia 30 ML ORAL.SUSP PO (10:53)
[2024-11-25] MEDS: Magnesium Citrate 300 ML SOLUTION PO (20:20)
[2024-11-25 21:04] VITALS: BP 129/74; PULSE 90; TEMP 36.6; O2SAT 94
[2024-11-25] MEDS: OLANZapine 10 MG TABLET 20 MG PO (21:05)
[2024-11-25] MEDS: traZODone HCL 100 MG TABLET 200 MG PO (21:06)
[2024-11-25] MEDS: Nystatin Cream 15 GM TUBE 1 APPL TOPICAL (21:09)
[2024-11-26] MEDS: Omeprazole 20 MG CAPSULE.DR PO (06:24)
[2024-11-26 07:52] VITALS: BP 105/58; PULSE 71; RESP 18; TEMP 36.2; O2SAT 96
[2024-11-26] MEDS: Cholecalciferol (Vitamin D3) 25 MCG TABLET PO (08:20)
[2024-11-26] MEDS: Ferrous Sulfate 324 MG TABLET.DR PO ×2 (08:20→21:58)
[2024-11-26] MEDS: Thiamine HCL 100 MG TABLET PO (08:20)
[2024-11-26] MEDS: lamoTRIgine 100 MG TABLET 200 MG PO (08:20)
--- NOTE | 2024-11-26 15:36 | HO.PSYCHPN ---
Subjective Subjective Date of Service: 11/26/24 Reason For Visit: Bipolar Disorder Interim History: Active on unit, social with peers. patient reports feeling good today; pt stated, I'm not feeling depressed. I want to talk to the director of social work about getting a referral to a new therapist . Pt was notified her director of social work will return on Thursday. denies any issues at this time. denies SI/HI/VH/AH. continue current tx plan. Medication Compliance: Yes Side effects from medications: No Attending Groups: Yes Mental Status Exam Mental Status Exam Patient Appearance: Well Grooomed Patient Orientation: Person, Place, Time and Situation Level of Consciousness: Awake and Alert Patient Behavior: Appropriate, Cooperative and Good Eye Contact Mood Description: Calm Affect Description: Calm Ability to Follow Directions: Good Speech Pattern: Clear and Appropriate Memory Description: Intact Hallucinations: None Delusions: Not Present Thought Process: Intact Thought Content: positive for Intact Diagnostics Vital Signs (24Hr): Vital Signs - 24 hr 11/25/24 21:04 11/26/24 07:52 Temperature 97.8 F 97.1 F Pulse Rate 90 71 Respiratory Rate 18 Blood Pressure 129/74 105/58 L Pulse Oximetry 94 96 Oxygen Delivery Method Room Air Room Air BMI result Body Mass Index 32.1 Labs 11/21/24 23:26 11/21/24 23:26 Medications Medications Current Medications Acetaminophen (Acetaminophen 325 Mg Tablet) 650 mg PO Q6H PRN PRN Reason: Headache/Pain, Scale 1-10 Al Hydroxide/Mg Hydroxide (Magnesium Hydrox/Alum Hydrox 30 Ml Oral.Susp) 30 ml PO Q6H PRN PRN Reason: Heartburn/Nausea Last Admin: 11/24/24 08:27 Dose: 30 ml Bisacodyl (Bisacodyl 5 Mg Tablet.) 10 mg PO BEDTIME PRN PRN Reason: Constipation Clotrimazole (Clotrimazole 1 % Cream 15 Gm Tube) 1 appl TOPICAL BID PRN PRN Reason: Rash Ferrous Sulfate (Ferrous Sulfate 324 Mg Tablet.) 324 mg PO BID [facility] Last Admin: 11/26/24 08:20 Dose: 324 mg Hydroxyzine HCl (Hydroxyzine Hcl 25 Mg Tablet) 25 mg PO Q6H PRN PRN Reason: mild anxiety Last Admin: 11/24/24 21:56 Dose: 25 mg Lamotrigine (Lamotrigine 100 Mg Tablet) 200 mg PO DAILY [facility] Last Admin: 11/26/24 08:20 Dose: 200 mg Magnesium Citrate (Magnesium Citrate 300 Ml Solution) 300 ml PO ONCE PRN PRN Reason: severe constipation Last Admin: 11/25/24 20:20 Dose: 300 ml Magnesium Hydroxide (Milk Of Magnesia 30 Ml Oral.Susp) 30 ml PO DAILY PRN PRN Reason: Constipation Last Admin: 11/25/24 10:53 Dose: 30 ml Nicotine Polacrilex (Nicotine Polacrilex 2 Mg Gum) 4 mg BUCCAL Q2H PRN PRN Reason: Nicotine Cravings Nystatin (Nystatin Cream 15 Gm Tube) 1 appl TOPICAL BID [facility]; Protocol Last Admin: 11/26/24 08:21 Dose: Not Given Olanzapine (Olanzapine 10 Mg Tablet) 20 mg PO BEDTIME [facility] Last Admin: 11/25/24 21:05 Dose: 20 mg Omeprazole (Omeprazole 20 Mg Capsule.Dr) 20 mg PO DAILY@0630 [facility] Last Admin: 11/26/24 06:24 Dose: 20 mg Ondansetron HCl (Ondansetron Odt 4 Mg Tab.Rapdis) 4 mg TRANSLINGU Q6H PRN PRN Reason: Nausea and Vomiting Last Admin: 11/24/24 09:26 Dose: 4 mg Thiamine HCl (Thiamine Hcl 100 Mg Tablet) 100 mg PO DAILY [facility] Last Admin: 11/26/24 08:20 Dose: 100 mg Trazodone HCl (Trazodone Hcl 100 Mg Tablet) 200 mg PO BEDTIME [facility] Last Admin: 11/25/24 21:06 Dose: 200 mg Triamcinolone Acetonide (Triamcinolone Acet 0.5 % Cream 15 Gm Tube) 1 appl TOPICAL BID PRN PRN Reason: Rash Vitamin D (Cholecalciferol (Vitamin D3) 25 Mcg Tablet) 25 mcg PO DAILY [facility] Last Admin: 11/26/24 08:20 Dose: 25 mcg Allergies Allergies Allergy/AdvReac Type Severity Reaction Status Date / Time Penicillins Allergy Mild HIVES Verified 11/21/24 23:15 naproxen [NAPROXEN] Allergy Unknown BLEEDING Verified 11/21/24 23:15 penicillin V Allergy Unknown Hives Verified 11/21/24 23:15 Assessment & Plan Assessment & Plan (1) Bipolar 1 disorder: Status: Acute Code(s): F31.9 - Bipolar disorder, unspecified Plan 44-year-old female with history of anxiety, bipolar 1 disorder, and PTSD, presented to [facility] [place] [facility] on 11/21/2024 for suicide ideation by using her medications to overdose in the face of significant work stressors. 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 Consequently, she is constantly tired and does not sleep well; she tosses and turns all night even though she is on trazodone 200 mg at bedtime. She has been taking her psychotropic medications as prescribed. She lives with her fiance. On 11/21/2024, she was feeling tired and depressed and told her fiance that maybe she should take a bottle of her psychotropic medications. Her fiance brother to the ED for further evaluation and treatment. She states that she did not intend to commit suicide, nor did she had suicide ideation. She wanted to take the pills to go to sleep. She stated that she has been feeling better since admission. She does not intend to return to her current job and her fiance supportive of that. She will stay home after she is discharged until she finds another job. She denies rosy or hypomania episodes. She currently denies SI, HI, AVH. She smokes marijuana twice monthly and denies order illicit drugs. Formulation/Clinical reasoning: Patient is likely experiencing depressive episodes due to significant work stressors; she has been feeling tired and depressed. She has also been experiencing sleep disturbances. No rosy or hypomania episodes. She has been taking her medications as prescribed and her symptoms have improved since admission. She does not plan to return to her current job; her plan is to return home to her fiancee and find a new job. No current SI, HI, AVH. She will continue her current treatment regimen. Advised to request p.r.n. hydroxyzine for anxiety or at bedtime to help with sleep if trazodone is not effective. Verbalized understanding and agreed with the plan. 11/24: Patient is in a happy mood. She reports mild anxiety and depressive symptoms. She feels safe to return home. No SI/HI/AVH. Will increase lamotrigine to 200 mg daily. Continue current treatment regime. 11/25: Constipation- prn Dulcolax, Magnesium Citrate B12 281- Thiamine 100 mg daily TDN to 11/29. Continue current tx 11/26: Active on unit, social with peers. patient reports feeling good today; pt stated, I'm not feeling depressed. I want to talk to the director of social work about getting a referral to a new therapist . Pt was notified her director of social work will return on Thursday. denies any issues at this time. denies SI/HI/VH/AH. continue current tx plan. Plan: Admit to M5. CV 15 minutes check. Diagnostics as needed. Collateral contact.. Continue remainder of regime. Encouraged full milieu. Discharge planning. Patient educated on: diagnosis and medication risk/benefits Reason for continued inpatient stay Substantial Risk for: med/psych decompensation Time Spent With Patient Time: Total time managing care of this patient today _20___ minutes.
[2024-11-26] MEDS: Milk of Magnesia 30 ML ORAL.SUSP PO (15:44)
[2024-11-26 21:29] VITALS: BP 120/71; PULSE 86; TEMP 36.2; O2SAT 97
[2024-11-26] MEDS: traZODone HCL 100 MG TABLET 200 MG PO (21:55)
[2024-11-26] MEDS: OLANZapine 10 MG TABLET 20 MG PO (21:58)
[2024-11-26] MEDS: hydrOXYzine HCL 25 MG TABLET PO (23:09)
[2024-11-27] MEDS: Omeprazole 20 MG CAPSULE.DR PO (06:59)
[2024-11-27 07:57] VITALS: BP 146/86; PULSE 87; RESP 18; TEMP 36.4; O2SAT 97
[2024-11-27] MEDS: lamoTRIgine 100 MG TABLET 200 MG PO (08:52)
[2024-11-27] MEDS: Thiamine HCL 100 MG TABLET PO (08:52)
[2024-11-27] MEDS: Ferrous Sulfate 324 MG TABLET.DR PO ×2 (08:53→22:18)
[2024-11-27] MEDS: Cholecalciferol (Vitamin D3) 25 MCG TABLET PO (08:53)
--- NOTE | 2024-11-27 15:11 | HO.PSYCHPN ---
Subjective Subjective Date of Service: 11/27/24 Reason For Visit: Bipolar Disorder Interim History: Active on unit, social with peers. Continues to report feeling good ; joking and laughing with peers. denies any issues at this time. denies SI/HI/VH/AH. continue current tx plan. Medication Compliance: Yes Side effects from medications: No Attending Groups: Yes Mental Status Exam Mental Status Exam Patient Appearance: Well Grooomed Patient Orientation: Person, Place, Time and Situation Level of Consciousness: Awake and Alert Patient Behavior: Appropriate, Cooperative and Good Eye Contact Mood Description: Calm Affect Description: Calm Patient Cognition Impaired: No Ability to Follow Directions: Good Speech Pattern: Clear and Appropriate Memory Description: Intact Hallucinations: None Delusions: Not Present Thought Process: Intact Thought Content: positive for Intact Diagnostics Vital Signs (24Hr): Vital Signs - 24 hr 11/26/24 21:29 11/27/24 07:57 Temperature 97.1 F 97.6 F Pulse Rate 86 87 Respiratory Rate 18 Blood Pressure 120/71 146/86 H Pulse Oximetry 97 97 Oxygen Delivery Method Room Air BMI result Body Mass Index 32.1 Labs 11/21/24 23:26 11/21/24 23:26 Medications Medications Current Medications Acetaminophen (Acetaminophen 325 Mg Tablet) 650 mg PO Q6H PRN PRN Reason: Headache/Pain, Scale 1-10 Al Hydroxide/Mg Hydroxide (Magnesium Hydrox/Alum Hydrox 30 Ml Oral.Susp) 30 ml PO Q6H PRN PRN Reason: Heartburn/Nausea Last Admin: 11/24/24 08:27 Dose: 30 ml Bisacodyl (Bisacodyl 5 Mg Tablet.) 10 mg PO BEDTIME PRN PRN Reason: Constipation Clotrimazole (Clotrimazole 1 % Cream 15 Gm Tube) 1 appl TOPICAL BID PRN PRN Reason: Rash Ferrous Sulfate (Ferrous Sulfate 324 Mg Tablet.) 324 mg PO BID [facility] Last Admin: 11/27/24 08:53 Dose: 324 mg Hydroxyzine HCl (Hydroxyzine Hcl 25 Mg Tablet) 25 mg PO Q6H PRN PRN Reason: mild anxiety Last Admin: 11/26/24 23:09 Dose: 25 mg Lamotrigine (Lamotrigine 100 Mg Tablet) 200 mg PO DAILY [facility] Last Admin: 11/27/24 08:52 Dose: 200 mg Magnesium Citrate (Magnesium Citrate 300 Ml Solution) 300 ml PO ONCE PRN PRN Reason: severe constipation Last Admin: 11/25/24 20:20 Dose: 300 ml Magnesium Hydroxide (Milk Of Magnesia 30 Ml Oral.Susp) 30 ml PO DAILY PRN PRN Reason: Constipation Last Admin: 11/26/24 15:44 Dose: 30 ml Nicotine Polacrilex (Nicotine Polacrilex 2 Mg Gum) 4 mg BUCCAL Q2H PRN PRN Reason: Nicotine Cravings Nystatin (Nystatin Cream 15 Gm Tube) 1 appl TOPICAL BID [facility]; Protocol Last Admin: 11/27/24 08:54 Dose: Not Given Olanzapine (Olanzapine 10 Mg Tablet) 20 mg PO BEDTIME [facility] Last Admin: 11/26/24 21:58 Dose: 20 mg Omeprazole (Omeprazole 20 Mg Capsule.Dr) 20 mg PO DAILY@0630 [facility] Last Admin: 11/27/24 06:59 Dose: 20 mg Ondansetron HCl (Ondansetron Odt 4 Mg Tab.Rapdis) 4 mg TRANSLINGU Q6H PRN PRN Reason: Nausea and Vomiting Last Admin: 11/24/24 09:26 Dose: 4 mg Thiamine HCl (Thiamine Hcl 100 Mg Tablet) 100 mg PO DAILY [facility] Last Admin: 11/27/24 08:52 Dose: 100 mg Trazodone HCl (Trazodone Hcl 100 Mg Tablet) 200 mg PO BEDTIME [facility] Last Admin: 11/26/24 21:55 Dose: 200 mg Triamcinolone Acetonide (Triamcinolone Acet 0.5 % Cream 15 Gm Tube) 1 appl TOPICAL BID PRN PRN Reason: Rash Vitamin D (Cholecalciferol (Vitamin D3) 25 Mcg Tablet) 25 mcg PO DAILY [facility] Last Admin: 11/27/24 08:53 Dose: 25 mcg Allergies Allergies Allergy/AdvReac Type Severity Reaction Status Date / Time Penicillins Allergy Mild HIVES Verified 11/21/24 23:15 naproxen [NAPROXEN] Allergy Unknown BLEEDING Verified 11/21/24 23:15 penicillin V Allergy Unknown Hives Verified 11/21/24 23:15 Assessment & Plan Assessment & Plan (1) Bipolar 1 disorder: Status: Acute Code(s): F31.9 - Bipolar disorder, unspecified Plan 44-year-old female with history of anxiety, bipolar 1 disorder, and PTSD, presented to [facility] ED on 11/21/2024 for suicide ideation by using her medications to overdose in the face of significant work stressors. 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 She states that she has been under significant stress since she became a school office manager; stressors include unrealistic expectations by her boss and having to cover shifts for employees. Consequently, she is constantly tired and does not sleep well; she tosses and turns all night even though she is on trazodone 200 mg at bedtime. She has been taking her psychotropic medications as prescribed. She lives with her fipierre. On 11/21/2024, she was feeling tired and depressed and told her fiance that maybe she should take a bottle of her psychotropic medications. Her fipierre brother to the ED for further evaluation and treatment. She states that she did not intend to commit suicide, nor did she had suicide ideation. She wanted to take the pills to go to sleep. She stated that she has been feeling better since admission. She does not intend to return to her current job and her fiance supportive of that. She will stay home after she is discharged until she finds another job. She denies rosy or hypomania episodes. She currently denies SI, HI, AVH. She smokes marijuana twice monthly and denies order illicit drugs. Formulation/Clinical reasoning: Patient is likely experiencing depressive episodes due to significant work stressors; she has been feeling tired and depressed. She has also been experiencing sleep disturbances. No rosy or hypomania episodes. She has been taking her medications as prescribed and her symptoms have improved since admission. She does not plan to return to her current job; her plan is to return home to her fiancee and find a new job. No current SI, HI, AVH. She will continue her current treatment regimen. Advised to request p.r.n. hydroxyzine for anxiety or at bedtime to help with sleep if trazodone is not effective. Verbalized understanding and agreed with the plan. 11/24: Patient is in a happy mood. She reports mild anxiety and depressive symptoms. She feels safe to return home. No SI/HI/AVH. Will increase lamotrigine to 200 mg daily. Continue current treatment regime. 11/25: Constipation- prn Dulcolax, Magnesium Citrate B12 281- Thiamine 100 mg daily TDN to 11/29. Continue current tx 11/26: Active on unit, social with peers. patient reports feeling good today; pt stated, I'm not feeling depressed. I want to talk to the geriatric social worker about getting a referral to a new therapist . Pt was notified her geriatric social worker will return on Thursday. denies any issues at this time. denies SI/HI/VH/AH. continue current tx plan. 11/27: continue to report feeling good. continue tx plan. Plan: Admit to M5. CV 15 minutes check. Diagnostics as needed. Collateral contact.. Continue remainder of regime. Encouraged full milieu. Discharge planning. Patient educated on: medication risk/benefits Reason for continued inpatient stay Substantial Risk for: med/psych decompensation Time Spent With Patient Time: Total time managing care of this patient today _20___ minutes.
[2024-11-27] MEDS: hydrOXYzine HCL 25 MG TABLET PO (18:16)
[2024-11-27 20:00] VITALS: BP 118/64; PULSE 99; RESP 16; TEMP 37; O2SAT 95
[2024-11-27] MEDS: traZODone HCL 100 MG TABLET 200 MG PO (22:18)
[2024-11-27] MEDS: Docusate Sodium 100 MG CAPSULE PO (22:19)
[2024-11-27] MEDS: OLANZapine 10 MG TABLET 20 MG PO (22:19)
[2024-11-28] MEDS: Omeprazole 20 MG CAPSULE.DR PO (06:11)
[2024-11-28 08:03] VITALS: BP 122/78; PULSE 90; RESP 19; TEMP 36.4; O2SAT 97
[2024-11-28] MEDS: lamoTRIgine 100 MG TABLET 200 MG PO (08:21)
[2024-11-28] MEDS: Cholecalciferol (Vitamin D3) 25 MCG TABLET PO (08:21)
[2024-11-28] MEDS: Docusate Sodium 100 MG CAPSULE PO ×2 (08:21→20:42)
[2024-11-28] MEDS: Thiamine HCL 100 MG TABLET PO (08:21)
[2024-11-28] MEDS: Ferrous Sulfate 324 MG TABLET.DR PO ×2 (08:21→20:42)
--- NOTE | 2024-11-28 16:17 | HO.PSYCHPN ---
Subjective Subjective Date of Service: 11/28/24 Reason For Visit: Bipolar Disorder Interim History: Continues to report feeling good ; pt stated, I want to go home tomorrow. I just need a referral to a new therapist referral . denies any issues at this time. denies SI/HI/VH/AH. continue current tx plan. Medication Compliance: Yes Side effects from medications: No Attending Groups: Yes Mental Status Exam Mental Status Exam Patient Appearance: Well Grooomed Patient Orientation: Person, Place, Time and Situation Level of Consciousness: Awake and Alert Patient Behavior: Appropriate, Cooperative and Good Eye Contact Mood Description: Calm Affect Description: Calm Patient Cognition Impaired: No Ability to Follow Directions: Good Speech Pattern: Clear and Appropriate Memory Description: Intact Hallucinations: None Delusions: Not Present Thought Process: Intact Thought Content: positive for Intact Diagnostics Vital Signs (24Hr): Vital Signs - 24 hr 11/27/24 20:00 11/28/24 08:03 Temperature 98.6 F 97.5 F Pulse Rate 99 90 Respiratory Rate 16 19 Blood Pressure 118/64 122/78 Pulse Oximetry 95 97 Oxygen Delivery Method Room Air Room Air BMI result Body Mass Index 32.1 Labs 11/21/24 23:26 11/21/24 23:26 Medications Medications Current Medications Acetaminophen (Acetaminophen 325 Mg Tablet) 650 mg PO Q6H PRN PRN Reason: Headache/Pain, Scale 1-10 Al Hydroxide/Mg Hydroxide (Magnesium Hydrox/Alum Hydrox 30 Ml Oral.Susp) 30 ml PO Q6H PRN PRN Reason: Heartburn/Nausea Last Admin: 11/24/24 08:27 Dose: 30 ml Bisacodyl (Bisacodyl 5 Mg Tablet.) 10 mg PO BEDTIME PRN PRN Reason: Constipation Clotrimazole (Clotrimazole 1 % Cream 15 Gm Tube) 1 appl TOPICAL BID PRN PRN Reason: Rash Docusate Sodium (Docusate Sodium 100 Mg Capsule) 100 mg PO BID [facility] Last Admin: 11/28/24 08:21 Dose: 100 mg Ferrous Sulfate (Ferrous Sulfate 324 Mg Tablet.) 324 mg PO BID [facility] Last Admin: 11/28/24 08:21 Dose: 324 mg Hydroxyzine HCl (Hydroxyzine Hcl 25 Mg Tablet) 25 mg PO Q6H PRN PRN Reason: mild anxiety Last Admin: 11/27/24 18:16 Dose: 25 mg Lamotrigine (Lamotrigine 100 Mg Tablet) 200 mg PO DAILY [facility] Last Admin: 11/28/24 08:21 Dose: 200 mg Magnesium Citrate (Magnesium Citrate 300 Ml Solution) 300 ml PO ONCE PRN PRN Reason: severe constipation Last Admin: 11/25/24 20:20 Dose: 300 ml Magnesium Hydroxide (Milk Of Magnesia 30 Ml Oral.Susp) 30 ml PO DAILY PRN PRN Reason: Constipation Last Admin: 11/26/24 15:44 Dose: 30 ml Nicotine Polacrilex (Nicotine Polacrilex 2 Mg Gum) 4 mg BUCCAL Q2H PRN PRN Reason: Nicotine Cravings Nystatin (Nystatin Cream 15 Gm Tube) 1 appl TOPICAL BID [facility]; Protocol Last Admin: 11/28/24 08:23 Dose: Not Given Olanzapine (Olanzapine 10 Mg Tablet) 20 mg PO BEDTIME [facility] Last Admin: 11/27/24 22:19 Dose: 20 mg Omeprazole (Omeprazole 20 Mg Capsule.Dr) 20 mg PO DAILY@0630 [facility] Last Admin: 11/28/24 06:11 Dose: 20 mg Ondansetron HCl (Ondansetron Odt 4 Mg Tab.Rapdis) 4 mg TRANSLINGU Q6H PRN PRN Reason: Nausea and Vomiting Last Admin: 11/24/24 09:26 Dose: 4 mg Thiamine HCl (Thiamine Hcl 100 Mg Tablet) 100 mg PO DAILY [facility] Last Admin: 11/28/24 08:21 Dose: 100 mg Trazodone HCl (Trazodone Hcl 100 Mg Tablet) 200 mg PO BEDTIME [facility] Last Admin: 11/27/24 22:18 Dose: 200 mg Triamcinolone Acetonide (Triamcinolone Acet 0.5 % Cream 15 Gm Tube) 1 appl TOPICAL BID PRN PRN Reason: Rash Vitamin D (Cholecalciferol (Vitamin D3) 25 Mcg Tablet) 25 mcg PO DAILY [facility] Last Admin: 11/28/24 08:21 Dose: 25 mcg Allergies Allergies Allergy/AdvReac Type Severity Reaction Status Date / Time Penicillins Allergy Mild HIVES Verified 11/21/24 23:15 naproxen [NAPROXEN] Allergy Unknown BLEEDING Verified 11/21/24 23:15 penicillin V Allergy Unknown Hives Verified 11/21/24 23:15 Assessment & Plan Assessment & Plan (1) Bipolar 1 disorder: Status: Acute Code(s): F31.9 - Bipolar disorder, unspecified Plan 44-year-old female with history of anxiety, bipolar 1 disorder, and PTSD, presented to [facility] ED on 11/21/2024 for suicide ideation by using her medications to overdose in the face of significant work stressors. 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 Consequently, she is constantly tired and does not sleep well; she tosses and turns all night even though she is on trazodone 200 mg at bedtime. She has been taking her psychotropic medications as prescribed. She lives with her fiance. On 11/21/2024, she was feeling tired and depressed and told her fiance that maybe she should take a bottle of her psychotropic medications. Her fiance brother to the ED for further evaluation and treatment. She states that she did not intend to commit suicide, nor did she had suicide ideation. She wanted to take the pills to go to sleep. She stated that she has been feeling better since admission. She does not intend to return to her current job and her fiance supportive of that. She will stay home after she is discharged until she finds another job. She denies rosy or hypomania episodes. She currently denies SI, HI, AVH. She smokes marijuana twice monthly and denies order illicit drugs. Formulation/Clinical reasoning: Patient is likely experiencing depressive episodes due to significant work stressors; she has been feeling tired and depressed. She has also been experiencing sleep disturbances. No rosy or hypomania episodes. She has been taking her medications as prescribed and her symptoms have improved since admission. She does not plan to return to her current job; her plan is to return home to her fiancee and find a new job. No current SI, HI, AVH. She will continue her current treatment regimen. Advised to request p.r.n. hydroxyzine for anxiety or at bedtime to help with sleep if trazodone is not effective. Verbalized understanding and agreed with the plan. 11/24: Patient is in a happy mood. She reports mild anxiety and depressive symptoms. She feels safe to return home. No SI/HI/AVH. Will increase lamotrigine to 200 mg daily. Continue current treatment regime. 11/25: Constipation- prn Dulcolax, Magnesium Citrate B12 281- Thiamine 100 mg daily TDN to 11/29. Continue current tx 11/26: Active on unit, social with peers. patient reports feeling good today; pt stated, I'm not feeling depressed. I want to talk to the social services technician about getting a referral to a new therapist . Pt was notified her social services technician will return on Thursday. denies any issues at this time. denies SI/HI/VH/AH. continue current tx plan. 11/27: continue to report feeling good. continue tx plan. 11/28: continue tx plan. Plan: Admit to M5. CV 15 minutes check. Diagnostics as needed. Collateral contact.. Continue remainder of regime. Encouraged full milieu. Discharge planning. Patient educated on: diagnosis and medication risk/benefits Reason for continued inpatient stay Substantial Risk for: med/psych decompensation Time Spent With Patient Time: Total time managing care of this patient today _20___ minutes.
[2024-11-28 20:00] VITALS: BP 135/63; PULSE 100; RESP 16; TEMP 36.6; O2SAT 97
[2024-11-28] MEDS: OLANZapine 10 MG TABLET 20 MG PO (20:42)
[2024-11-28] MEDS: traZODone HCL 100 MG TABLET 200 MG PO (20:42)
[2024-11-28] MEDS: Ondansetron ODT 4 MG TAB.RAPDIS TRANSLINGU (20:47)
[2024-11-29] MEDS: hydrOXYzine HCL 25 MG TABLET PO (00:17)
--- NOTE | 2024-11-29 00:18 | PC.NURSE ---
Patient said she would like to have a prescription for Hydroxyzine as a prn when she goes home.
[2024-11-29] MEDS: Milk of Magnesia 30 ML ORAL.SUSP PO (00:40)
[2024-11-29] MEDS: Omeprazole 20 MG CAPSULE.DR PO (06:23)
[2024-11-29 08:00] VITALS: BP 126/71; PULSE 72; TEMP 36.4; O2SAT 97
[2024-11-29] MEDS: Ferrous Sulfate 324 MG TABLET.DR PO (08:11)
[2024-11-29] MEDS: lamoTRIgine 100 MG TABLET 200 MG PO (08:11)
[2024-11-29] MEDS: Docusate Sodium 100 MG CAPSULE PO (08:11)
[2024-11-29] MEDS: Thiamine HCL 100 MG TABLET PO (08:12)
[2024-11-29] MEDS: Cholecalciferol (Vitamin D3) 25 MCG TABLET PO (08:12)
--- NOTE | 2024-11-29 10:57 | P.DS_ITS ---
DS: Providers Provider Date of Service: 11/29/24 Date of admission: 11/22/24 12:31 Date of discharge: 11/29/24 Primary care physician: Unknown Physician Admitting clinician: Tom Chawla Attending physician on discharge: Troy Leal Discharging clinician: Jacklyn Edgar DS: Diagnosis Discharge Diagnosis (1) Bipolar 1 disorder: Status: Acute DS: Medications Discharge Medications Home Medications: Home Medications ?Medication ?Instructions ?Recorded ?Confirmed cholecalciferol (vitamin D3) 25 25 mcg PO DAILY 10/22/20 11/22/24 mcg (1,000 unit) capsule (Vitamin D3) ferrous sulfate 324 mg (65 mg 324 mg PO BID 10/22/20 11/22/24 iron) tablet,delayed release lamotrigine 150 mg tablet 150 mg PO DAILY 10/22/20 11/22/24 olanzapine 20 mg tablet (Zyprexa) 20 mg PO BEDTIME 10/22/20 11/22/24 pantoprazole 40 mg tablet,delayed 40 mg PO DAILY 10/22/20 11/22/24 release nitrofurantoin macrocrystal 100 mg 100 mg PO DAILY PRN UTI PREVENTION 11/22/24 11/22/24 capsule trazodone 100 mg tablet 200 mg PO BEDTIME 11/22/24 11/22/24 Previous Rx's ?Medication ?Instructions ?Recorded clotrimazole-betamethasone 1 1 appl topical BID 1 week #45 grams 02/17/24 %-0.05 % topical cream Mental Status Exam Mental Status Exam Narrative: Pt is alert and oriented; behavior is cooperative, friendly and calm; dressed in casual attire; mood is described as good ; eye contact appropriate; Speech is normal rate, volume and not pressured; thought process is organized; Thought content is on discharge; denies SI/HI/VH/AH. Data Data Completed and Pending Completed studies during hospitalization [Text1]: 11/23/24 07:20 Estimat Average Glucose 94 Hemoglobin A1c % 4.9 Magnesium 2.2 Triglycerides 70 Cholesterol 131 LDL Cholesterol, Calc 61 HDL Cholesterol 56 Vitamin B12 281 Folate 4.8 TSH 1.75 Free T4 1.07 11/21/24 00:00 Urine clean catch - Clean Catch Midstream Urine Culture - Final No growth. DS: Summary Hospital Course Hospital Course: 44-year-old female with history of anxiety, bipolar 1 disorder, and PTSD, presented to [facility] on 11/21/2024 for suicide ideation by using her medications to overdose in the face of significant work stressors. 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 Consequently, she is constantly tired and does not sleep well; she tosses and turns all night even though she is on trazodone 200 mg at bedtime. She has been taking her psychotropic medications as prescribed. She lives with her fiance. On 11/21/2024, she was feeling tired and depressed and told her fiance that maybe she should take a bottle of her psychotropic medications. Her fiance brother to the ED for further evaluation and treatment. She states that she did not intend to commit suicide, nor did she had suicide ideation. She wanted to take the pills to go to sleep. She stated that she has been feeling better [facility] admission. She does not intend to return to her current job and her fiance supportive of that. She will stay home after she is discharged until she finds another job. She denies rosy or hypomania episodes. She currently denies SI, HI, AVH. She smokes marijuana twice monthly and denies order illicit drugs. Formulation/Clinical reasoning: Patient is likely experiencing depressive episodes due to significant work stressors; she has been feeling tired and depressed. She has also been experiencing sleep disturbances. No rosy or hypomania episodes. She has been taking her medications as prescribed and her symptoms have improved since admission. She does not plan to return to her current job; her plan is to return home to her fiancee and find a new job. No current SI, HI, AVH. She will continue her current treatment regimen. Plan: Admit to M5. CV 15 minutes check. Diagnostics as needed. Collateral contact.. Continue remainder of regime. Encouraged full milieu. Discharge planning. Advised to request p.r.n. hydroxyzine for anxiety or at bedtime to help with sleep if trazodone is not effective. Verbalized understanding and agreed with the plan. Patient is in a happy mood. She reports mild anxiety and depressive symptoms. She feels safe to return home. No SI/HI/AVH. Will increase lamotrigine to 200 mg daily. Continue current treatment regime. Constipation- prn Dulcolax, Magnesium Citrate B12 281- Thiamine 100 mg daily TDN to 11/29. Continue current tx Active on unit, social with peers. patient reports feeling good today; pt stated, I'm not feeling depressed. I want to talk to the child welfare social worker about getting a referral to a new therapist . Pt was notified her child welfare social worker will return on Thursday. denies any issues at this time. denies SI/HI/VH/AH. continue current tx plan. Continues to report feeling good ; pt stated, I want to go home tomorrow. I just need a referral to a new therapist referral . denies any issues at this time. denies SI/HI/VH/AH. continue current tx plan. Patient reports looking forward to discharge. denies SI/HI/VH/AH. Pt plans on following up with her outpatient providers. Status at Discharge Cognitive/behavioral status at discharge: Patient has insight and demonstrates good judgment in terms of wanting to pursue treatment. Patient has a safety plan that includes presenting to the closest ER or calling 911 if feeling unsafe. Functional status at discharge: independent ambulation Overall status at discharge: patient is back to baseline Time Spent with Patient Time attestation: Total time managing care of this patient today _20___ minutes. Time spent: Less than 30 minutes Discharge Plan Discharge Anticipated Discharge Date/Time: 11/29/24 10:57 Patient Disposition: Home, Self-Care Discharge Diagnosis: Bipolar d/o Referrals: [facility] Psychiatry with Deidra Young [Other] - 12/02/24 12:30 pm (Telehealth) [facility] Therapy Intake [Other] - 12/01/24 1:00 pm (Plan for an hour and a half for the intake for therapy. ) [facility] Respite [Other] - 1 Week ([facility] ([facility]) provides a short-term, out-of-home placement for individuals 18 years and older who have a need to resolve an acute emotional issue. The program provides a home-like, safe, and supervised environment for psychiatric crises or hospital step-downs. Individuals served at [facility] do not require the intensive medical treatment of a locked, in-patient hospital facility.) [facility] [Other] - 1 Week ([facility] program delivers respite services as an alternative to hospital emergency departments and psychiatric hospitalization. ) Physician,Unknown J [Primary Care Provider] - 1 Week Discharge Medications: New lamotrigine 200 mg tablet 200 mg PO DAILY 30 Days Qty: 30 0RF docusate sodium 100 mg Capsule 100 mg PO BID 30 Days Qty: 60 0RF Continued trazodone 100 mg tablet 200 mg PO BEDTIME 30 Days Qty: 60 0RF pantoprazole 40 mg Tablet,Delayed Release (Dr/Ec) 40 mg PO DAILY 30 Days Qty: 30 0RF olanzapine [Zyprexa] 20 mg Tablet 20 mg PO BEDTIME 30 Days Qty: 30 0RF cholecalciferol (vitamin D3) [Vitamin D3] 25 mcg (1,000 unit) Capsule 25 mcg PO DAILY 30 Days Qty: 30 0RF ferrous sulfate 324 mg (65 mg iron) Tablet,Delayed Release (Dr/Ec) 324 mg PO BID 30 Days Qty: 60 0RF Discontinued lamotrigine 150 mg Tablet 150 mg PO DAILY clotrimazole-betamethasone 1-0.05 % cream 1 appl topical BID 7 Days Qty: 45 0RF nitrofurantoin macrocrystal 100 mg capsule 100 mg PO DAILY PRN (Reason: UTI PREVENTION) Discharge Orders: Discharge Order (Routine); Ordered 11/29/24 Ordered By: Jacklyn Edgar Diet: Regular diet Activity on Discharge: As tolerated Stand Alone Forms: Patient Portal Discharge page, Community Support Print Language: Kyrgyz Care Plan Goals: Maintain mood and safe behaviors Take medications as prescribed Practice coping skills Continue with outpatient providers and reach out to them as needed Health Concerns: Mood stability and behaviors Plan of Treatment: Follow up with your PCP, psychiatric provider and other outpatient providers regarding above concerns Take medications as prescribed Assessment: Patient has insight and demonstrates good judgment in terms of wanting to pursue treatment. Patient has a safety plan that includes presenting to the closest ER or calling 911 if feeling unsafe. Discharge Date/Time: 11/29/24 11:38
== END 2024-11-29 11:38 | disposition home or self-care (01) | DRG 885 ==
LOC: HO.ED 23:49 → HO.PM5 11-22 12:56
PROVIDERS: Admitting Provider Clinical Nurse Specialist Psychiatric/Mental Health, Adult; Emergency Provider Emergency Medicine; Visit Provider Clinical Nurse Specialist Psychiatric/Mental Health, Adult
DX: F31.9 Bipolar disorder, unspecified (principal); F43.10 Post-traumatic stress disorder, unspecified; Z56.6 Other physical and mental strain related to work; Z98.84 Bariatric surgery status; Z79.899 Other long term (current) drug therapy
CPT/HCPCS: 36415; 80053; 80061; 80307; 81001; 82607; 82746; 83036; 83735; 84439; 84443; 84702; 85025; 87086; 93005; 99285; S9485

== ENCOUNTER → 2024-11-22 10:16 | Outpatient (BNV) | payer OTHER, SELFPAY | PROVIDERS: Admitting Provider Clinical Nurse Specialist Psychiatric/Mental Health, Adult; Emergency Provider Emergency Medicine; Visit Provider Internal Medicine Cardiovascular Disease | DX: Z13.6 Encounter for screening for cardiovascular disorders (principal) | CPT/HCPCS: 93010 ==

== ENCOUNTER → 2024-11-22 12:31 | Outpatient (BNV) | payer OTHER, SELFPAY | PROVIDERS: Admitting Provider Clinical Nurse Specialist Psychiatric/Mental Health, Adult; Emergency Provider Emergency Medicine; Visit Provider Nurse Practitioner Family | DX: F31.4 Bipolar disorder, current episode depressed, severe, without psychotic features (principal) | CPT/HCPCS: 90792; 99231; 99232; 99238 ==

== ENCOUNTER 2025-01-02 23:22 | Inpatient (IN) | payer OTHER, SELFPAY ==
--- NOTE | ~2025-01-02 | XR_ITS ---
EXAMINATION: XR ABDOMEN KUB CLINICAL INDICATION: constipation COMPARISON: Collated to CT dated October 15, 2024. TECHNIQUE: AP view of the abdomen. FINDINGS: Stool within the right hemicolon and rectum. No intestinal obstruction pattern. No air-fluid levels. Multiple vascular clips in the epigastric, right upper quadrant abdomen and right hemiabdomen. 4 mm calcification overlapping the lower aspect of the left kidney shadow. Multilevel thoracolumbar spondylosis. Left hemilaminectomy L5-S1. S-shaped curvature of the thoracolumbar spine. XR/XR KUB IMPRESSION: No intestinal obstruction pattern. Probable nephrolithiasis, left kidney. Scoliosis and multilevel thoracolumbar spondylosis. Electronically signed by: Karl Johns MD 01/11/2025 11:59 AM EDT
--- NOTE | ~2025-01-02 | CT_ITS ---
EXAMINATION: CT HEAD WITHOUT CONTRAST CLINICAL INFORMATION: Recent injury COMPARISON: November 15, 2016 TECHNIQUE: Contiguous axial imaging was performed from the skull base to vertex without intravenous administration of contrast. This CT examination was performed using dose optimization techniques as appropriate, variously including the following: *Automated exposure control *Adjustment of mA and/or kV according to patient size (this includes techniques or standardized protocols for targeted exams where dose is matched to indication/reason for exam; i.e. extremities or head) *Use of iterative reconstruction technique DLP: 734 mGY*cm FINDINGS: There is no acute ischemic change. There is no intracranial hemorrhage. There is no mass-effect or midline shift. Basal cisterns and ventricles are within normal limits for age/cerebral volume. Orbits are symmetrical and unremarkable. Paranasal sinuses and mastoid air cells are pneumatized. There are no bony abnormalities. CT/CT head/brain wo IV con IMPRESSION: No acute intracranial abnormality. Electronically signed by: Jesus Nails MD 01/09/2025 11:56 AM EDT
[2025-01-02 23:29] VITALS: BP 137/94; PULSE 89; RESP 16; TEMP 36.4; O2SAT 97; BMI 32.5
[2025-01-02 23:50] LABS: MANUAL DIFF FLAG NO
[2025-01-02 23:51] LABS: Hematocrit 40.9 % (37.0-47.0); Hemoglobin 14.4 g/dl (12.0-16.0); Imm Gran Abs Auto 0.02 X10*3/uL (0.00-0.03); Imm Gran Pct Auto 0.2 % (0.0-0.4); Lymphocytes Absolute Auto 2.1 X10*3/uL (1.2-4.9); Mean Corpuscular HGB Conc 35.2 g/dl (31.0-35.0); Mean Corpuscular Hemoglobin 29.3 pg (27.0-33.0); Mean Corpuscular Volume 83.3 fL (80.0-98.0); NRBC Abs Auto 0.000 X10*3/uL (0.0-0.012); NRBC Pct Auto 0.0 /100WBC (0.0-0.2); Platelet Count 316 X10*3/uL (160-400); Red Blood Count 4.91 X10*6/uL (4.20-5.50); White Blood Count 8.4 X10*3/uL (4.8-10.8)
[2025-01-03 00:12] LABS: Alanine Aminotransferase 19 U/L (0-31); Albumin Level 4.8 g/dL (3.5-5.0); Alkaline Phosphatase 87 U/L (39-117); Anion Gap 11 (12-20); Aspartate Amino Transferase 24 U/L (5-31); Blood Urea Nitrogen 6 mg/dL (9-16); Calcium 9.3 mg/dL (8.4-10.2); Carbon Dioxide 23 mmol/L (22-29); Chloride 109 mmol/L (96-108); Creatinine Clr Calc Pharmacy 158.8; Estimated Glomerular Filt Rate > 60; Potassium 3.4 mmol/L (3.3-5.1); Sodium 140 mmol/L (135-145); Total Protein 7.1 g/dL (6.5-8.0)
--- NOTE | 2025-01-03 00:21 | PC.NURSE ---
ed rounds entry erroneous regarding substance use, wrong patient
[2025-01-03 00:30] LABS: Cannabinoid Screen Urine Not Detected (Not Detect)
--- NOTE | 2025-01-03 00:54 | PC.NURSE ---
addendum report i dont feel i was here long enough last time currently uneployed, reports food insecurity no recent hospitaliztion, no hallucinations, feels impulses to self harm or suicide (thoughts), contracts for safety here
--- NOTE | 2025-01-03 01:07 | ED.PSYCH ---
HPI - Psych General Chief Complaint: Psychiatric Symptoms Stated Complaint: Crisis Time Seen by Provider: 01/03/25 00:41 Source: patient Mode of arrival: ambulatory Limitations: no limitations History of Present Illness ED Provider: DR. Carlin HPI Narrative: 44-year-old female dropped off by their boyfriend for further evaluation of depression and SI. Patient was trying to reach to the kitchen to kill herself with a knife. No hearing voices, no visual hallucination. Patient is going through financial problem can not afford paying her apartment rent. Related Data Previous Rx's ?Medication ?Instructions ?Recorded cholecalciferol (vitamin D3) 25 25 mcg PO DAILY 30 days #30 caps 11/29/24 mcg (1,000 unit) capsule (Vitamin D3) ferrous sulfate 324 mg (65 mg 324 mg PO BID 30 days #60 tabs 11/29/24 iron) tablet,delayed release lamotrigine 200 mg tablet 200 mg PO DAILY 30 days #30 tabs 11/29/24 olanzapine 20 mg tablet (Zyprexa) 20 mg PO BEDTIME 30 days #30 tabs 11/29/24 pantoprazole 40 mg tablet,delayed 40 mg PO DAILY 30 days #30 tabs 11/29/24 release trazodone 100 mg tablet 200 mg (2 x 100 mg) PO BEDTIME 30 11/29/24 days #60 tabs Allergies Allergy/AdvReac Type Severity Reaction Status Date / Time Penicillins Allergy Mild HIVES Verified 01/02/25 23:33 naproxen (NAPROXEN) Allergy Unknown BLEEDING Verified 01/02/25 23:33 penicillin V Allergy Unknown Hives Verified 01/02/25 23:33 Review of Systems Review of Systems: All other systems are reviewed and are negative Constitutional: Reports as per HPI and Reports no additional constitutional complaints Eyes: Reports as per HPI and Reports no additional eye complaints Reports system reviewed and no additional complaints, except as documented Cardiovascular: Reports as per HPI and Reports no additional cardiovascular complaints Respiratory: Reports as per HPI and Reports no additional respiratory complaints Gastrointestinal: Reports as per HPI and Reports no additional gastrointestinal complaints Genitourinary: Reports no additional female genitourinary complaints Musculoskeletal: Reports no additional musculoskeletal complaints Skin/Breast: Reports system reviewed and no additional complaints, except as docu Psychiatric: Reports no additional psychiatric complaints Endocrine: Reports no additional endocrine complaints Hematologic/Lymphatic: Reports no additional hematologic/lymphatic complaints Allergic/Immunologic: Reports no additional allergic/immunologic complaints Reports system reviewed and no additional complaints, except as documented and Reports Abnormal speech present [facility] Past Medical History Medical History Depression PTSD (post-traumatic stress disorder) Bipolar 1 disorder Anxiety delivery delivered Surgical History Gastric bypass status for obesity Tubal ligation status Social History Social History Household Members: Significant Other Housing: Apartment Do you presently have visiting nurse or other home services: No Alcohol intake: never Patient Tobacco Use Status: Never used Tobacco Smoked in Last 30 Days: No Use of substances other than those prescribed or required for medical reasons: No Substance Use Type: Marijuana Advance Directives: No Advance Directives Information Provided: Yes Do you have a plan to hurt others: No Plan Nutrition Risks: No Nutritional Risk Patient : No service: No Sexual orientation: Straight/Heterosexual Physical Exam Vital Signs: Vital Signs: Last Vital Signs Temp 97.9 F 01/03/25 08:23 Pulse 79 01/03/25 08:23 Resp 16 01/03/25 08:23 BP 111/78 01/03/25 08:23 Pulse Ox 96 01/03/25 08:23 O2 Del Method Room Air 01/03/25 08:23 BMI result Body Mass Index 32.5 Vital signs have been reviewed and appear to be correct. Blood pressure elevated. Heart rate normal. Respiratory rate normal. Temperature normal. Oxygen saturation normal. Appearance: Alert. Oriented X3. No acute distress. Head: Normal external exam. Normocephalic. Atraumatic. No [place] signs noted. No raccoon eyes noted Eyes: PERRLA. EOMI. Conjunctiva and sclera normal. Eyelids normal. ENT: TM's Normal. Pharynx normal. Uvula midline. Moist mucous membranes. No trismus noted. No drooling noted. No muffled voice noted. Neck: Normal inspection. Neck supple. FROM. No adenopathy. Thyroid Normal. No meningeal signs. No neck mass noted. CVS: Normal heart rate and rhythm. Heart sound normal. No murmurs noted. Pulses normal throughout. Respiratory: No respiratory distress. Painless inspiration. Breath sounds normal. No wheezes/rales/rhonchi noted. Chest nontender. No accessory muscle usage noted or decreased air movement noted. Abdomen: Soft and nontender. Bowel sounds normal in all 4 quadrants. No distention noted. No organomegaly noted. No visible injury noted. Back: No CVA tenderness. Full range of motion noted. Skin: Skin warm and dry. Normal skin color. Normal skin turgor. No rashes/lesions/lacerations noted. Extremities: No lower extremity edema. Extremities exhibit normal range of motion. Extremities nontender. Neuro: Oriented X 3. Cranial nerve exam: II-XII are grossly intact No motor deficit. No sensory deficit. Reflexes normal. Patient Orientation: Person, Place, Time and Situation, okay hygiene and grooming. Fair eye contact, attentive, no tics or tremors. Level of Consciousness: Awake, Appropriate and Alert Patient Behavior: Appropriate, Guarded, Cooperative and Anxious Mood Description: Constricted, Blunted and Apprehensive Affect Description: Constricted, Blunted and Apprehensive Patient Cognition Impaired: No Ability to Follow Directions: Excellent Speech Pattern: Clear, Appropriate and Spontaneous Speech, nonpressured, spontaneous with regular rate and rhythm, normal volume and prosody. No dysarthria. Memory Description: Intact, Immediate Intact and Short Term Intact Hallucinations: None Delusions: Not Present Thought Process: Intact Thought Content: positive for Intact, positive for Logical, denies Homicidal Ideation, + SI with plan using a knife. Depressive Symptoms: Not present. Judgement and Insight: Limited but adequate. Course Reevaluation(s) Reevaluation #1: Medically cleared, await for care team evaluation, start physician observation. Time: 01:12 Reevaluation #2: discontinue physician observation now, admitted to inpatient psych word. Time: 13:00 Medications Administered Generic Name Dose Route Start Last Admin Trade Name Nikolaiq PRN Reason Stop Dose Admin Ferrous Sulfate 324 mg 01/03/25 02:00 01/03/25 08:12 Ferrous Sulfate 324 Mg Tablet. PO 324 mg BID SAM Administration Lamotrigine 200 mg 01/03/25 09:00 01/03/25 08:12 Lamotrigine 100 Mg Tablet PO 200 mg DAILY SAM Administration Olanzapine 20 mg 01/03/25 02:00 01/03/25 05:58 Olanzapine 10 Mg Tablet PO Not Given BEDTIME SAM Pantoprazole Sodium 40 mg 01/03/25 09:00 01/03/25 08:12 Pantoprazole Sodium 20 Mg Tablet. PO 40 mg DAILY SAM Administration Trazodone HCl 200 mg 01/03/25 02:00 01/03/25 05:59 Trazodone Hcl 100 Mg Tablet PO Not Given BEDTIME SAM Vitamin D 25 mcg 01/03/25 09:00 01/03/25 08:12 Cholecalciferol (Vitamin D3) 25 Mcg Tablet PO 25 mcg DAILY SAM Administration Discontinued Medications Generic Name Dose Route Start Last Admin Trade Name Jass PRN Reason Stop Dose Admin Lorazepam 1 mg 01/03/25 08:07 01/03/25 08:12 Lorazepam 1 Mg Tablet PO 01/03/25 08:08 1 mg ONCE ONE Administration Medical Decision Making Differential Diagnosis Differential Diagnoses: The differential diagnosis associated with the presentation includes (Medical clearance, SI, HI, acute psychosis.) Admission/Observation Consideration of admission/observation: Escalation of care including admission/observation considered Lab Data MDM Lab Attestation statement: I reviewed the patient's lab results. 01/02/25 23:42 01/02/25 23:42 Labs: Lab Results 01/02/25 01/03/25 Range/Units 23:42 00:14 WBC 8.4 (4.8-10.8) X10*3/uL RBC 4.91 (4.20-5.50) X10*6/uL Hgb 14.4 (12.0-16.0) g/dl Hct 40.9 (37.0-47.0) % MCV 83.3 (80.0-98.0) fL MCH 29.3 (27.0-33.0) pg MCHC 35.2 H (31.0-35.0) g/dl RDW 12.3 (11.0-16.0) % Plt Count 316 (160-400) X10*3/uL MPV 8.7 L (9.4-12.3) fL Immature Gran % (Auto) 0.2 (0.0-0.4) % Neut % (Auto) 67.1 (45-73) % Lymph % (Auto) 25.5 (20-40) % [place] % (Auto) 6.0 (2-11) % Eos % (Auto) 0.8 (0-4) % Baso % (Auto) 0.4 (0-2) % Lymph # (Auto) 2.1 (1.2-4.9) X10*3/uL [place] # (Auto) 0.5 (0.1-1.2) X10*3/uL Eos # (Auto) 0.1 (0.0-0.4) X10*3/uL Baso # (Auto) 0.0 (0.0-0.2) X10*3/uL Abs Immat Gran (auto) 0.02 (0.00-0.03) X10*3/uL Absolute Neuts (auto) 5.6 (2.0-8.3) x10*3/uL Absolute Nucleated RBC 0.000 (0.0-0.012) X10*3/uL Nucleated RBC % (auto) 0.0 (0.0-0.2) /100WBC Sodium 140 (135-145) mmol/L Potassium 3.4 (3.3-5.1) mmol/L Chloride 109 H (96-108) mmol/L Carbon Dioxide 23 (22-29) mmol/L Anion Gap 11 L (12-20) BUN 6 L (9-16) mg/dL Creatinine 0.58 (0.5-1.4) mg/dL Estim Creat Clear Calc 158.8 Estimated GFR > 60 Random Glucose 97 (60-115) mg/dL Calcium 9.3 (8.4-10.2) mg/dL Total Bilirubin 0.5 (0.0-1.0) mg/dL AST 24 (5-31) U/L ALT 19 (0-31) U/L Alkaline Phosphatase 87 (39-117) U/L Total Protein 7.1 (6.5-8.0) g/dL Albumin 4.8 (3.5-5.0) g/dL Urine Color Yellow Urine Appearance Clear Urine pH 6.0 (5.0-9.0) Ur Specific [place] 1.010 (1.005-1.025) Urine Protein Negative (Neg-Trace) mg/dL Urine Glucose (UA) Negative (Negative) mg/dL Urine Ketones 15 (Negative) mg/dL Urine Blood Negative (Negative) Urine Nitrite Negative (Negative) Ur Leukocyte Esterase Small (1+) H (Negative) Urine RBC 0-2 (0-2) /HPF Urine WBC 6-10 H (0-5) /HPF Ur Squamous Epith Cells 6-10 (0-2) /HPF Urine Bacteria 1+ (None Seen) Hyaline Casts 0-2 (0-2) /LPF Urine Test NEGATIVE (NEGATIVE) Urine Opiates Screen Not Detected (Not Detect) Ur Buprenorphine Scrn Not Detected (Not Detect) ng/mL Ur Oxycodone Screen Not Detected (Not Detect) ng/mL Urine Methadone Screen Not Detected (Not Detect) ng/mL Urine Fentanyl Screen Not Detected (Not Detect) Ur Barbiturates Screen Not Detected (Not Detect) Ur Phencyclidine Scrn Not Detected (Not Detect) Ur Amphetamines Screen Not Detected (Not Detect) U Benzodiazepines Scrn Not Detected (Not Detect) Urine Cocaine Screen Not Detected (Not Detect) U Marijuana (THC) Screen Not Detected (Not Detect) Ethyl Alcohol < 10 mg/dL Discharge Plan Discharge Clinical Impression: Depression, Suicidal ideation Patient Disposition: Admitted As Inpatient Interventions: [place]-Suicide Risk Severity Scale Last Done: 01/03/25 00:17 Admission Worksheet (ED) Last Done: 01/03/25 12:08 Discharge Date/Time: 01/03/25 13:09
--- NOTE | 2025-01-03 03:20 | PC.NURSE ---
Took report from off-going RN at 0115 hours. Pt is a 44 y/o female who presented to the ED via triage for evaluation of suicidal thoughts with plan to stab herself. Endorses recent financial hardship and unstable housing, reports facing eviction. Recent admission here in November. Pt is awake, alert, and oriented X 4. Is easily arousable with verbal stimuli and is presently calm and cooperative, appropriate with staff. Verbalizes needs appropriately. Pt ambulates independently with a steady gait and uses the bathroom as needed. Evaluation by Care Team is pending. Will continue to monitor for any changes. Safety checks continue every 15 min.
--- NOTE | 2025-01-03 05:46 | PC.NURSE ---
Pt has been sleeping most of the shift, appears comfortable, changes positions as desired. Pt is OOB as desired for needs and the bathroom. Safety checks continue every 15 min. Will continue to monitor for any changes.
--- NOTE | 2025-01-03 08:06 | PC.NURSE ---
Assumed care of patient at 0645, patient appears to be anxious this am, pacing around, reporting increased anxiety with active thoughts of harming herself. Pt requesting medication for anxiety, Pagan aware at this time
[2025-01-03] MEDS: Ferrous Sulfate 324 MG TABLET.DR PO ×2 (08:12→20:29)
[2025-01-03 08:23] VITALS: BP 111/78; PULSE 79; RESP 16; TEMP 36.6; O2SAT 96
--- NOTE | 2025-01-03 08:44 | MHC.CARE ---
Pt meets the criteria for IPLOC and will be placed on a Section 12a. ED provider in agreement.
[2025-01-03 10:52] LABS: UPreg QC Valid YES
[2025-01-03 10:53] LABS: Appearance Urine Clear; Glucose Urine UA Negative (Negative); PH 6.0 (5.0-9.0); Specific Gravity - Urine 1.010 (1.005-1.025); UMIC TRIGGER UA YES
--- NOTE | 2025-01-03 11:33 | PC.NURSE ---
Pt reporting feeling very distressed about having memory loss
[2025-01-03 13:30] VITALS: BP 116/83; PULSE 91; RESP 20; TEMP 36.4; O2SAT 95
--- NOTE | 2025-01-03 17:06 | PC.NURSE ---
Addendum entered by Demetra Cardenas RN 01/03/25 17:21: Pt lives with fiance but cannot afford rent. Reports pending eviction as additional stressor, I know we shouldn't signed that lease. We can't afford that place! Pt reported increasing memory loss with hx of fall in [facility] a year ago. Provider CAW made aware. Pt reported no plans of SI, HI, AVH at this time once upon the unit. I feel safe on this floor once I'm inside . Discussed admission status and agreed to stay voluntarily. Expressed desire to get help for improving coping skills. I don't really want to ; I just didn't know what else to do . Pt is cooperative and interacting with peers on unit. A&O x 4. Original Note: Admission Note - Pt admitted from [facility] ED Pod after self presenting with SI plan. Pt was home when she attempted to grab a knife in kitchen to stab herself when her fiance stopped her. Pt reported increased stressors in life such as loss of employment, impending eviction and poor coping skills with challenging relationships with father and fiance. Hx of admission on this unit. Pt was tearful upon admission interview on unit.
[2025-01-03 17:46] VITALS: BMI 31.7
[2025-01-03 20:00] VITALS: BP 120/82; PULSE 88; RESP 16; TEMP 36.3; O2SAT 99
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
[2025-01-04 08:00] VITALS: BP 115/77; PULSE 84; RESP 18; TEMP 36.3; O2SAT 96
[2025-01-04 08:12] LABS: Hemoglobin A1C 118.1106 umol/L; Total Hemoglobin (HGBA1C) 4019.9367 umol/L
[2025-01-04 08:21] LABS: Cholesterol 153 mg/dL (<200); HDL Cholesterol 54 mg/dL (>40); Magnesium 2.1 mg/dL (1.6-2.6); Triglycerides 106 mg/dL (<150)
[2025-01-04 08:37] LABS: Free T4 (Free Thyroxine) 1.17 ng/dL (0.71-1.85); Thyroid Stimulating Hormone 1.79 uIU/mL (0.32-4.0)
[2025-01-04 08:50] LABS: Folate 6.9 ng/mL (> or = 4.0); Vitamin B12 263 pg/mL (200-900)
[2025-01-04] MEDS: Ferrous Sulfate 324 MG TABLET.DR PO ×2 (09:02→20:45)
[2025-01-04] MEDS: Milk of Magnesia 30 ML ORAL.SUSP PO (12:10)
--- NOTE | 2025-01-04 14:19 | P.PNPSI_ITS ---
Subjective Subjective Date of Service: 01/04/25 Reason For Visit: Bipolar D/O Subjective Notes: Conditional Voluntary Healthcare Proxy: No Guardianship: No Medical Problems Affecting Mental Status: No Interim History: Pt is very concerned about housing and if she will be able to return to the home she shares with her parag. Believes the landlord wanted her off the lease as she is not employed and has disability income. Parag tells her not to worry- she will come home, however she finds herself perseverative. Reports sleep is poor, however asks not to make changes as she worries she will fall at home. Will consider changes for 01/05. Reports [facility] in the [place] office-a new relationship for her. Medication Compliance: Yes Side effects from medications: Yes (insomnia at night, sleepy during the day- ?reversal of her sleep cycle) Attending Groups: Yes Review of Systems Acute medical concerns: Yes Medical Review of Systems: unchanged Review of Systems Review of Systems denies Mental Status Exam Mental Status Exam Patient Appearance: Appropriate Patient Orientation: Person, Place, Time and Situation Level of Consciousness: Alert Patient Behavior: Talkative, Anxious and Good Eye Contact Mood Description: Depressed and Anxious Affect Description: Anxious Ability to Follow Directions: Good Speech Pattern: Spontaneous Speech Memory Description: Intact Hallucinations: None Delusions: Paranoid Ideation and Present Thought Process: Distracted and Rumination Thought Content: positive for Obsessional Thoughts, positive for Circumstantial, positive for Perseveration, positive for Preoccupation and positive for Suicidal Ideation (denies) Depressive Symptoms: Increased Anxiety, Insomnia, Difficulty Sleeping and Difficulty Concentrating Abnormal Motor Activity Signs and Symptoms: Restlessness Judgement: Fair Diagnostics Vital Signs (24Hr): Vital Signs - 24 hr 01/03/25 20:00 01/03/25 20:00 01/04/25 08:00 Temperature 97.3 F 97.3 F 97.3 F Pulse Rate 88 88 84 Respiratory Rate 16 16 18 Blood Pressure 120/82 120/82 115/77 Pulse Oximetry 99 99 96 Oxygen Delivery Method Room Air Room Air Room Air BMI result Body Mass Index 31.7 Labs 01/02/25 23:42 01/02/25 23:42 Labs: Laboratory Results - last 48 hr 01/02/25 01/03/25 01/04/25 23:42 00:14 07:46 WBC 8.4 RBC 4.91 Hgb 14.4 Hct 40.9 MCV 83.3 MCH 29.3 MCHC 35.2 H RDW 12.3 Plt Count 316 MPV 8.7 L Immature Gran % (Auto) 0.2 Neut % (Auto) 67.1 Lymph % (Auto) 25.5 [place] % (Auto) 6.0 Eos % (Auto) 0.8 Baso % (Auto) 0.4 Lymph # (Auto) 2.1 [place] # (Auto) 0.5 Eos # (Auto) 0.1 Baso # (Auto) 0.0 Abs Immat Gran (auto) 0.02 Absolute Neuts (auto) 5.6 Absolute Nucleated RBC 0.000 Nucleated RBC % (auto) 0.0 Sodium 140 Potassium 3.4 Chloride 109 H Carbon Dioxide 23 Anion Gap 11 L BUN 6 L Creatinine 0.58 Estim Creat Clear Calc 158.8 Estimated GFR > 60 Random Glucose 97 Estimat Average Glucose 91 Hemoglobin A1c % 4.8 Calcium 9.3 Magnesium 2.1 Total Bilirubin 0.5 AST 24 ALT 19 Alkaline Phosphatase 87 Total Protein 7.1 Albumin 4.8 Triglycerides 106 Cholesterol 153 LDL Cholesterol, Calc 78 HDL Cholesterol 54 Vitamin B12 263 Folate 6.9 TSH 1.79 Free T4 1.17 Urine Color Yellow Urine Appearance Clear Urine pH 6.0 Ur Specific [place] 1.010 Urine Protein Negative Urine Glucose (UA) Negative Urine Ketones 15 Urine Blood Negative Urine Nitrite Negative Ur Leukocyte Esterase Small (1+) H Urine RBC 0-2 Urine WBC 6-10 H Ur Squamous Epith Cells 6-10 Urine Bacteria 1+ Hyaline Casts 0-2 Urine Test NEGATIVE Urine Opiates Screen Not Detected Ur Buprenorphine Scrn Not Detected Ur Oxycodone Screen Not Detected Urine Methadone Screen Not Detected Urine Fentanyl Screen Not Detected Ur Barbiturates Screen Not Detected Ur Phencyclidine Scrn Not Detected Ur Amphetamines Screen Not Detected U Benzodiazepines Scrn Not Detected Urine Cocaine Screen Not Detected U Marijuana (THC) Screen Not Detected Ethyl Alcohol < 10 Medications Medications Current Medications Acetaminophen (Acetaminophen 325 Mg Tablet) 650 mg PO Q6H PRN PRN Reason: Headache/Pain, Scale 1-10 Last Admin: 01/03/25 16:14 Dose: 650 mg Al Hydroxide/Mg Hydroxide (Magnesium Hydrox/Alum Hydrox 30 Ml Oral.Susp) 30 ml PO Q6H PRN PRN Reason: Heartburn/Nausea Bupropion HCl (Bupropion Hcl 75 Mg Tablet) 75 mg PO DAILY [facility] Ferrous Sulfate (Ferrous Sulfate 324 Mg Tablet.) 324 mg PO BID [facility] Last Admin: 01/04/25 09:02 Dose: 324 mg Hydroxyzine HCl (Hydroxyzine Hcl 25 Mg Tablet) 25 mg PO Q6H PRN PRN Reason: mild anxiety Last Admin: 01/04/25 11:10 Dose: 25 mg Lamotrigine (Lamotrigine 100 Mg Tablet) 200 mg PO DAILY [facility] Last Admin: 01/04/25 09:03 Dose: 200 mg Magnesium Hydroxide (Milk Of Magnesia 30 Ml Oral.Susp) 30 ml PO DAILY PRN PRN Reason: Constipation Last Admin: 01/04/25 12:10 Dose: 30 ml Nicotine Polacrilex (Nicotine Polacrilex 2 Mg Gum) 4 mg BUCCAL Q2H PRN PRN Reason: Nicotine Cravings Olanzapine (Olanzapine 10 Mg Tablet) 20 mg PO BEDTIME [facility] Last Admin: 01/03/25 20:29 Dose: 20 mg Olanzapine (Olanzapine 5 Mg Tablet) 5 mg PO Q4H PRN PRN Reason: agitation Last Admin: 01/04/25 09:07 Dose: 5 mg Pantoprazole Sodium (Pantoprazole Sodium 20 Mg Tablet.) 40 mg PO DAILY [facility] Last Admin: 01/04/25 09:03 Dose: 40 mg Trazodone HCl (Trazodone Hcl 100 Mg Tablet) 200 mg PO BEDTIME [facility] Last Admin: 01/03/25 20:29 Dose: 200 mg Vitamin D (Cholecalciferol (Vitamin D3) 25 Mcg Tablet) 25 mcg PO DAILY [facility] Last Admin: 01/04/25 09:04 Dose: 25 mcg Allergies Allergies Allergy/AdvReac Type Severity Reaction Status Date / Time Penicillins Allergy Mild HIVES Verified 01/02/25 23:33 naproxen (NAPROXEN) Allergy Unknown BLEEDING Verified 01/02/25 23:33 penicillin V Allergy Unknown Hives Verified 01/02/25 23:33 Assessment & Plan Assessment & Plan (1) Suicidal ideation: Status: Acute Code(s): R45.851 - Suicidal ideations (2) Bipolar disorder: Status: Acute Code(s): F31.9 - Bipolar disorder, unspecified Plan HPI: Chief complaint: I ran to kitchen to grab the knife to hurt myself Patient Patient is 44-year-old female dropped off by her boyfriend for further evaluation of depression and SI. Patient was trying to reach to the kitchen to kill herself with a knife. No hearing voices, no visual hallucination. Patient is going through financial problem can not afford paying her apartment rent. Patient reports increased stress due to housing issue and possibility to be evicted from the present apartment. She was stressed out and do not know what to do so she ran into the kitchen to grab the knife to hurt herself with a plan to kill her. History of numerous inpatient level of care admissions, last admitted was in November 2024 at [facility] . No history of substance use, no PHP. At baseline she is having mood swing, anxious and depression. However possibility of being evicted from her current apartment make symptoms worse. Increased depression and anxiety, increased suicidal thoughts. Currently continued to endorse passive SI I feel like I should be . High hyper focused on housing. States she is not ready to go home yet as my mental health is not stable . Feeling pressure from her fiance' and her dad to mccray her to go home to help them packing which she is not able to handle at this time. Denies HI/SIB/AVH. Mood is labile, test for time. Formulation/clinical reasoning: Increased stress, anxiety and depression, increased suicidal thoughts with current passive SI. Labile mood. Poor concentration, frustrated easily. Not able to continue working as part-time. Quit her job last week due to stress. Prior to be brought to the emergency room she was trying to get a knife in the kitchen to cut herself to kill her purposely. She can be impulsive. Carrying bipolar disorder, PTSD. Given above information, patient could not be safe in less restrictive environment. We will make medication change to address symptoms of depression anxiety. We will continue to monitor for safety and plan to discharge when patient is more stable. Hospital course: 01/03/27: Continue with home medication; Lamictal 200 mg daily for bipolar. Olanzapine 20 mg at bedtime for mood/psychosis. Trazodone 200 mg at bedtime for insomnia. Order some labs work per protocol. U tox negative. BAL negative. HCG was negative. UA negative. Other labs work unremarkable 01/04: Declines med changes to help with her sleep today. Continue regime Plan Patient on 15 minute checks for safety. Monitor for passive SI. Admitted to [facility]. CV. Work with treatment team to do collateral. Treatment team to reach out to outpatient therapist and PCP to reschedule appointments. Per patient: Appointment with therapist is in January 09, and PCP appointments is on January 05. Patient signed a consent to release information for that and fiancee. Marquez- further number is [phone] Patient was medically clear at [facility] prior to be admitted to . Reason for continued inpatient stay Substantial Risk for: rapid decompensation Time Spent With Patient Time: Total time managing care of this patient today ____ minutes.
[2025-01-04 20:00] VITALS: BP 123/79; PULSE 104; RESP 16; TEMP 36.4; O2SAT 99
[2025-01-05 07:00] VITALS: BMI 31.6
[2025-01-05 08:00] VITALS: BP 129/70; PULSE 84; RESP 16; TEMP 36.4; O2SAT 97
[2025-01-05] MEDS: Ferrous Sulfate 324 MG TABLET.DR PO ×2 (08:36→20:30)
--- NOTE | 2025-01-05 10:18 | HO.PSYCHPN ---
Subjective Subjective Date of Service: 01/05/25 Reason For Visit: Bipolar D/O Subjective Notes: Conditional Voluntary Healthcare Proxy: No Guardianship: No Medical Problems Affecting Mental Status: No Interim History: Continues with ruminative thoughts, worry. 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 Will agree to consult with nutrition. Discussed participating in the milieu and allowing herself to express concerns and receive feedback from the group to broaden perspective. Medication Compliance: Yes Side effects from medications: No Attending Groups: Yes Review of Systems Acute medical concerns: No Review of Systems Review of Systems Cortisone cream for irritated area behind her ears. Mental Status Exam Mental Status Exam Patient Appearance: Appropriate Patient Orientation: Person, Place, Time and Situation Level of Consciousness: Alert Patient Behavior: Talkative, Anxious and Good Eye Contact Mood Description: Depressed and Anxious Affect Description: Anxious Ability to Follow Directions: Good Speech Pattern: Spontaneous Speech Memory Description: Intact Hallucinations: None Delusions: Paranoid Ideation and Present Thought Process: Distracted and Rumination Thought Content: positive for Obsessional Thoughts, positive for Circumstantial, positive for Perseveration, positive for Preoccupation and positive for Suicidal Ideation (denies) Depressive Symptoms: Increased Anxiety, Insomnia, Difficulty Sleeping and Difficulty Concentrating Abnormal Motor Activity Signs and Symptoms: Restlessness Judgement: Fair Diagnostics Vital Signs (24Hr): Vital Signs - 24 hr 01/04/25 20:00 01/05/25 08:00 Temperature 97.5 F 97.6 F Pulse Rate 104 H 84 Respiratory Rate 16 16 Blood Pressure 123/79 129/70 Pulse Oximetry 99 97 Oxygen Delivery Method Room Air BMI result Body Mass Index 31.7 Labs 01/02/25 23:42 01/02/25 23:42 Labs: Laboratory Results - last 48 hr 01/03/25 01/04/25 00:14 07:46 Estimat Average Glucose 91 Hemoglobin A1c % 4.8 Magnesium 2.1 Triglycerides 106 Cholesterol 153 LDL Cholesterol, Calc 78 HDL Cholesterol 54 Vitamin B12 263 Folate 6.9 TSH 1.79 Free T4 1.17 Urine Color Yellow Urine Appearance Clear Urine pH 6.0 Ur Specific [place] 1.010 Urine Protein Negative Urine Glucose (UA) Negative Urine Ketones 15 Urine Blood Negative Urine Nitrite Negative Ur Leukocyte Esterase Small (1+) H Urine RBC 0-2 Urine WBC 6-10 H Ur Squamous Epith Cells 6-10 Urine Bacteria 1+ Hyaline Casts 0-2 Urine Test NEGATIVE Medications Medications Current Medications Acetaminophen (Acetaminophen 325 Mg Tablet) 650 mg PO Q6H PRN PRN Reason: Headache/Pain, Scale 1-10 Last Admin: 01/03/25 16:14 Dose: 650 mg Al Hydroxide/Mg Hydroxide (Magnesium Hydrox/Alum Hydrox 30 Ml Oral.Susp) 30 ml PO Q6H PRN PRN Reason: Heartburn/Nausea Bupropion HCl (Bupropion Hcl 75 Mg Tablet) 75 mg PO DAILY [facility] Last Admin: 01/05/25 08:36 Dose: 75 mg Ferrous Sulfate (Ferrous Sulfate 324 Mg Tablet.) 324 mg PO BID [facility] Last Admin: 01/05/25 08:36 Dose: 324 mg Hydroxyzine HCl (Hydroxyzine Hcl 25 Mg Tablet) 25 mg PO Q6H PRN PRN Reason: mild anxiety Last Admin: 01/05/25 05:07 Dose: 25 mg Lamotrigine (Lamotrigine 100 Mg Tablet) 200 mg PO DAILY [facility] Last Admin: 01/05/25 08:36 Dose: 200 mg Magnesium Hydroxide (Milk Of Magnesia 30 Ml Oral.Susp) 30 ml PO DAILY PRN PRN Reason: Constipation Last Admin: 01/04/25 12:10 Dose: 30 ml Nicotine Polacrilex (Nicotine Polacrilex 2 Mg Gum) 4 mg BUCCAL Q2H PRN PRN Reason: Nicotine Cravings Olanzapine (Olanzapine 10 Mg Tablet) 20 mg PO BEDTIME [facility] Last Admin: 01/04/25 20:45 Dose: 20 mg Olanzapine (Olanzapine 5 Mg Tablet) 5 mg PO Q4H PRN PRN Reason: agitation Last Admin: 01/04/25 09:07 Dose: 5 mg Pantoprazole Sodium (Pantoprazole Sodium 20 Mg Tablet.) 40 mg PO DAILY [facility] Last Admin: 01/05/25 08:36 Dose: 40 mg Trazodone HCl (Trazodone Hcl 100 Mg Tablet) 200 mg PO BEDTIME [facility] Last Admin: 01/04/25 20:45 Dose: 200 mg Vitamin D (Cholecalciferol (Vitamin D3) 25 Mcg Tablet) 25 mcg PO DAILY [facility] Last Admin: 01/05/25 08:36 Dose: 25 mcg Allergies Allergies Allergy/AdvReac Type Severity Reaction Status Date / Time Penicillins Allergy Mild HIVES Verified 01/02/25 23:33 naproxen (NAPROXEN) Allergy Unknown BLEEDING Verified 01/02/25 23:33 penicillin V Allergy Unknown Hives Verified 01/02/25 23:33 Assessment & Plan Assessment & Plan (1) Suicidal ideation: Status: Acute Code(s): R45.851 - Suicidal ideations (2) Bipolar disorder: Status: Acute Code(s): F31.9 - Bipolar disorder, unspecified Plan HPI: Chief complaint: I ran to kitchen to grab the knife to hurt myself Patient Patient is 44-year-old female dropped off by her boyfriend for further evaluation of depression and SI. Patient was trying to reach to the kitchen to kill herself with a knife. No hearing voices, no visual hallucination. Patient is going through financial problem can not afford paying her apartment rent. Patient reports increased stress due to housing issue and possibility to be evicted from the present apartment. She was stressed out and do not know what to do so she ran into the kitchen to grab the knife to hurt herself with a plan to kill her. History of numerous inpatient level of care admissions, last admitted was in November 2024 at [facility] [place], . No history of substance use, no PHP. At baseline she is having mood swing, anxious and depression. However possibility of being evicted from her current apartment make symptoms worse. Increased depression and anxiety, increased suicidal thoughts. Currently continued to endorse passive SI I feel like I should be . High hyper focused on housing. States she is not ready to go home yet as my mental health is not stable . Feeling pressure from her fiance' and her dad to mccray her to go home to help them packing which she is not able to handle at this time. Denies HI/SIB/AVH. Mood is labile, test for time. Formulation/clinical reasoning: Increased stress, anxiety and depression, increased suicidal thoughts with current passive SI. Labile mood. Poor concentration, frustrated easily. Not able to continue working as part-time. Quit her job last week due to stress. Prior to be brought to the emergency room she was trying to get a knife in the kitchen to cut herself to kill her purposely. She can be impulsive. Carrying bipolar disorder, PTSD. Given above information, patient could not be safe in less restrictive environment. We will make medication change to address symptoms of depression anxiety. We will continue to monitor for safety and plan to discharge when patient is more stable. Hospital course: 01/03/27: Continue with home medication; Lamictal 200 mg daily for bipolar. Olanzapine 20 mg at bedtime for mood/psychosis. Trazodone 200 mg at bedtime for insomnia. Order some labs work per protocol. U tox negative. BAL negative. HCG was negative. UA negative. Other labs work unremarkable 01/05: Tolerating buproprion. Mirtazapine 7.5 mg HS to assist with sleep (trial) Plan Patient on 15 minute checks for safety. Monitor for passive SI. Admitted to . CV. Work with treatment team to do collateral. Treatment team to reach out to outpatient therapist and PCP to reschedule appointments. Per patient: Appointment with therapist is in January 09, and PCP appointments is on January 05. Patient signed a consent to release information for that and fiancee. Marquez-further number is [phone] Patient was medically clear at [facility] ED prior to be admitted to . Reason for continued inpatient stay Substantial Risk for: rapid decompensation Time Spent With Patient Time: Total time managing care of this patient today ____ minutes.
[2025-01-05 20:00] VITALS: BP 123/79; PULSE 89; TEMP 36.6; O2SAT 97
[2025-01-06 08:00] VITALS: BP 121/73; PULSE 76; RESP 16; TEMP 37.6; O2SAT 95
--- NOTE | 2025-01-06 08:20 | P.PNPSI_ITS ---
Subjective Subjective Date of Service: 01/06/25 Reason For Visit: Bipolar D/O Interim History: Met with patient. Discussed with nursing. Patient continues to report concerns around memory and concentration. Utilizing olanzapine as needed for anxiety. Reports feeling very anxious and stressed, denies suicidal thoughts which were present prior to admission. Tolerating Remeron which was just started for sleep, anxiety and depression. Also noted olanzapine and trazodone and bupropion Medication Compliance: Yes Side effects from medications: No Attending Groups: Intermittent Review of Systems Review of Systems nothing acute Mental Status Exam Mental Status Exam Patient Appearance: Appropriate Patient Orientation: Person, Place, Time and Situation Level of Consciousness: Alert Patient Behavior: Talkative, Anxious and Good Eye Contact Mood Description: Depressed and Anxious Affect Description: Anxious Ability to Follow Directions: Good Speech Pattern: Spontaneous Speech Memory Description: Intact Hallucinations: None Delusions: Paranoid Ideation and Present Thought Process: Distracted and Rumination Thought Content: positive for Obsessional Thoughts, positive for Circumstantial, positive for Perseveration, positive for Preoccupation and positive for Suicidal Ideation (denies) Depressive Symptoms: Increased Anxiety, Insomnia, Difficulty Sleeping and Difficulty Concentrating Abnormal Motor Activity Signs and Symptoms: Restlessness Judgement: Fair Diagnostics Vital Signs (24Hr): Vital Signs - 24 hr 01/05/25 20:00 Temperature 97.8 F Pulse Rate 89 Blood Pressure 123/79 Pulse Oximetry 97 Oxygen Delivery Method Room Air BMI result Body Mass Index 31.6 Labs 01/02/25 23:42 01/02/25 23:42 Labs: Laboratory Results - last 48 hr 01/04/25 07:46 Magnesium 2.1 Triglycerides 106 Cholesterol 153 LDL Cholesterol, Calc 78 HDL Cholesterol 54 Vitamin B12 263 Folate 6.9 TSH 1.79 Free T4 1.17 Medications Medications Current Medications Acetaminophen (Acetaminophen 325 Mg Tablet) 650 mg PO Q6H PRN PRN Reason: Headache/Pain, Scale 1-10 Last Admin: 01/03/25 16:14 Dose: 650 mg Al Hydroxide/Mg Hydroxide (Magnesium Hydrox/Alum Hydrox 30 Ml Oral.Susp) 30 ml PO Q6H PRN PRN Reason: Heartburn/Nausea Bupropion HCl (Bupropion Hcl 75 Mg Tablet) 75 mg PO DAILY [facility] Last Admin: 01/05/25 08:36 Dose: 75 mg Ferrous Sulfate (Ferrous Sulfate 324 Mg Tablet.Dr) 324 mg PO BID [facility] Last Admin: 01/05/25 20:30 Dose: 324 mg Hydrocortisone (Hydrocortisone 1 % Cream 28.35 Gm Tube) 1 appl TOPICAL BID PRN; Protocol PRN Reason: Rash Hydroxyzine HCl (Hydroxyzine Hcl 25 Mg Tablet) 25 mg PO Q6H PRN PRN Reason: mild anxiety Last Admin: 01/05/25 22:43 Dose: 25 mg Lamotrigine (Lamotrigine 100 Mg Tablet) 200 mg PO DAILY [facility] Last Admin: 01/05/25 08:36 Dose: 200 mg Magnesium Hydroxide (Milk Of Magnesia 30 Ml Oral.Susp) 30 ml PO DAILY PRN PRN Reason: Constipation Last Admin: 01/04/25 12:10 Dose: 30 ml Mirtazapine (Mirtazapine 7.5 Mg Tablet) 7.5 mg PO BEDTIME [facility] Last Admin: 01/05/25 20:30 Dose: 7.5 mg Nicotine Polacrilex (Nicotine Polacrilex 2 Mg Gum) 4 mg BUCCAL Q2H PRN PRN Reason: Nicotine Cravings Olanzapine (Olanzapine 10 Mg Tablet) 20 mg PO BEDTIME [facility] Last Admin: 01/05/25 20:30 Dose: 20 mg Olanzapine (Olanzapine 5 Mg Tablet) 5 mg PO Q4H PRN PRN Reason: agitation Last Admin: 01/06/25 02:28 Dose: 5 mg Pantoprazole Sodium (Pantoprazole Sodium 20 Mg Tablet.Dr) 40 mg PO DAILY [facility] Last Admin: 01/05/25 08:36 Dose: 40 mg Trazodone HCl (Trazodone Hcl 100 Mg Tablet) 200 mg PO BEDTIME [facility] Last Admin: 01/05/25 20:30 Dose: 200 mg Vitamin D (Cholecalciferol (Vitamin D3) 25 Mcg Tablet) 25 mcg PO DAILY [facility] Last Admin: 01/05/25 08:36 Dose: 25 mcg Allergies Allergies Allergy/AdvReac Type Severity Reaction Status Date / Time Penicillins Allergy Mild HIVES Verified 01/02/25 23:33 naproxen (NAPROXEN) Allergy Unknown BLEEDING Verified 01/02/25 23:33 penicillin V Allergy Unknown Hives Verified 01/02/25 23:33 Assessment & Plan Assessment & Plan (1) Suicidal ideation: Status: Acute Code(s): R45.851 - Suicidal ideations (2) Bipolar disorder: Status: Acute Code(s): F31.9 - Bipolar disorder, unspecified Plan HPI: Chief complaint: I ran to kitchen to grab the knife to hurt myself Patient Patient is 44-year-old female dropped off by her boyfriend for further evaluation of depression and SI. Patient was trying to reach to the kitchen to kill herself with a knife. No hearing voices, no visual hallucination. Patient is going through financial problem can not afford paying her apartment rent. Patient reports increased stress due to housing issue and possibility to be evicted from the present apartment. She was stressed out and do not know what to do so she ran into the kitchen to grab the knife to hurt herself with a plan to kill her. History of numerous inpatient level of care admissions, [place] 20[place] [facility] . No history of substance use, no PHP. At baseline she is having mood swing, anxious and depression. However possibility of being evicted from her current apartment make symptoms worse. Increased depression and anxiety, increased suicidal thoughts. Currently continued to endorse passive SI I feel like I should be . High hyper focused on housing. States she is not ready to go home yet as my mental health is not stable . Feeling pressure from her fiance' and her dad to mccray her to go home to help them packing which she is not able to handle at this time. Denies HI/SIB/AVH. Mood is labile, test for time. Formulation/clinical reasoning: Increased stress, anxiety and depression, increased suicidal thoughts with current passive SI. Labile mood. Poor concentration, frustrated easily. Not able to continue working as part-time. Quit her job last week due to stress. Prior to be brought to the emergency room she was trying to get a knife in the kitchen to cut herself to kill her purposely. She can be impulsive. Carrying bipolar disorder, PTSD. Given above information, patient could not be safe in less restrictive environment. We will make medication change to address symptoms of depression anxiety. We will continue to monitor for safety and plan to discharge when patient is more stable. Hospital course: 01/03/27: Continue with home medication; Lamictal 200 mg daily for bipolar. Olanzapine 20 mg at bedtime for mood/psychosis. Trazodone 200 mg at bedtime for insomnia. Order some labs work per protocol. U tox negative. BAL negative. HCG was negative. UA negative. Other labs work unremarkable 01/05: Tolerating buproprion. Mirtazapine 7.5 mg HS to assist with sleep (trial) 01/06/2025: Tolerating Remeron which was just started for sleep, anxiety and depression. Also noted olanzapine and trazodone and bupropion Plan Patient on 15 minute checks for safety. Monitor for passive SI. Admitted to . CV. Work with treatment team to do collateral. Treatment team to reach out to outpatient therapist and PCP to reschedule appointments. Per patient: Appointment with therapist is in January 09, and PCP appointments is on January 05. Patient signed a consent to release information for zbigniew and fiancee. Marquez- further number is [phone] Patient was medically clear at [facility] prior to be admitted to . Reason for continued inpatient stay Substantial Risk for: harm to self and inability to function Time Spent With Patient Time: Total time managing care of this patient today ____ minutes.
[2025-01-06] MEDS: Ferrous Sulfate 324 MG TABLET.DR PO ×2 (09:15→21:10)
--- NOTE | 2025-01-06 15:42 | MHC.CLN ---
CONSULT PATIENT WITH HX GASTRIC BYPASS SURGERY. REPORTS GAGGING/DRY HEAVES. DOES NOT RECALL WHEN SHE HAD GASTRIC BYPASS SURGERY. COULD NOT REPORT ON FOODS OR AMOUNTS OF FOOD THAT BOTHER HER. REPORTS DIFFICULTY MAKING FOOD CHOICES DUE TO LIFE STRESSORS. SUGGESTED SELECTING SPECIAL MEAL FOR LUNCH AND SUPPER SINCE PROTEIN, STARCH, VEG. VARIETY OF FOOD CHOICES ON MENU AND MAY CHOOSE OTHER OPTIONS DESIRED.
[2025-01-06 20:00] VITALS: BP 134/76; PULSE 91; TEMP 36.4; O2SAT 97
--- NOTE | 2025-01-07 07:28 | P.PNPSI_ITS ---
Subjective Subjective Date of Service: 01/07/25 Reason For Visit: Bipolar D/O Interim History: Met with patient. Discussed with nursing. Patient showered today and felt better for same. In mileu and groups. Anxiety does appear slightly ess today. Discussed Remeron will help with mood, anxiety and hopefully concentraion will also improve. Utilizing olanzapine as needed for anxiety. Denies SI. Medication Compliance: Yes Side effects from medications: No Attending Groups: Yes Review of Systems Acute medical concerns: No Review of Systems Review of Systems nothing acute Mental Status Exam Mental Status Exam Patient Appearance: Appropriate Patient Orientation: Person, Place, Time and Situation Level of Consciousness: Alert Patient Behavior: Talkative, Anxious and Good Eye Contact Mood Description: Depressed and Anxious Affect Description: Anxious Ability to Follow Directions: Good Speech Pattern: Spontaneous Speech Memory Description: Intact Diagnostics Vital Signs (24Hr): Vital Signs - 24 hr 01/06/25 08:00 01/06/25 20:00 Temperature 99.7 F 97.5 F Pulse Rate 76 91 Respiratory Rate 16 Blood Pressure 121/73 134/76 Pulse Oximetry 95 97 Oxygen Delivery Method Room Air BMI result Body Mass Index 31.6 Labs 01/02/25 23:42 01/02/25 23:42 Medications Medications Current Medications Acetaminophen (Acetaminophen 325 Mg Tablet) 650 mg PO Q6H PRN PRN Reason: Headache/Pain, Scale 1-10 Last Admin: 01/03/25 16:14 Dose: 650 mg Al Hydroxide/Mg Hydroxide (Magnesium Hydrox/Alum Hydrox 30 Ml Oral.Susp) 30 ml PO Q6H PRN PRN Reason: Heartburn/Nausea Bupropion HCl (Bupropion Hcl 75 Mg Tablet) 75 mg PO DAILY [facility] Last Admin: 01/06/25 09:15 Dose: 75 mg Ferrous Sulfate (Ferrous Sulfate 324 Mg Tablet.Dr) 324 mg PO BID [facility] Last Admin: 01/06/25 21:10 Dose: 324 mg Hydrocortisone (Hydrocortisone 1 % Cream 28.35 Gm Tube) 1 appl TOPICAL BID PRN; Protocol PRN Reason: Rash Hydroxyzine HCl (Hydroxyzine Hcl 25 Mg Tablet) 25 mg PO Q6H PRN PRN Reason: mild anxiety Last Admin: 01/06/25 21:10 Dose: 25 mg Lamotrigine (Lamotrigine 100 Mg Tablet) 200 mg PO DAILY [facility] Last Admin: 01/06/25 09:15 Dose: 200 mg Magnesium Hydroxide (Milk Of Magnesia 30 Ml Oral.Susp) 30 ml PO DAILY PRN PRN Reason: Constipation Last Admin: 01/04/25 12:10 Dose: 30 ml Mirtazapine (Mirtazapine 7.5 Mg Tablet) 7.5 mg PO BEDTIME [facility] Last Admin: 01/06/25 21:10 Dose: 7.5 mg Nicotine Polacrilex (Nicotine Polacrilex 2 Mg Gum) 4 mg BUCCAL Q2H PRN PRN Reason: Nicotine Cravings Olanzapine (Olanzapine 10 Mg Tablet) 20 mg PO BEDTIME [facility] Last Admin: 01/06/25 21:10 Dose: 20 mg Olanzapine (Olanzapine 5 Mg Tablet) 5 mg PO Q4H PRN PRN Reason: agitation Last Admin: 01/06/25 22:28 Dose: 5 mg Pantoprazole Sodium (Pantoprazole Sodium 20 Mg Tablet.Dr) 40 mg PO DAILY [facility] Last Admin: 01/06/25 09:15 Dose: 40 mg Trazodone HCl (Trazodone Hcl 100 Mg Tablet) 200 mg PO BEDTIME [facility] Last Admin: 01/06/25 21:10 Dose: 200 mg Vitamin D (Cholecalciferol (Vitamin D3) 25 Mcg Tablet) 25 mcg PO DAILY [facility] Last Admin: 01/06/25 09:15 Dose: 25 mcg Allergies Allergies Allergy/AdvReac Type Severity Reaction Status Date / Time Penicillins Allergy Mild HIVES Verified 01/02/25 23:33 naproxen (NAPROXEN) Allergy Unknown BLEEDING Verified 01/02/25 23:33 penicillin V Allergy Unknown Hives Verified 01/02/25 23:33 Assessment & Plan Assessment & Plan (1) Suicidal ideation: Status: Acute Code(s): R45.851 - Suicidal ideations (2) Bipolar disorder: Status: Acute Code(s): F31.9 - Bipolar disorder, unspecified Plan HPI: Chief complaint: I ran to kitchen to grab the knife to hurt myself Patient Patient is 44-year-old female dropped off by her boyfriend for further evaluation of depression and SI. Patient was trying to reach to the kitchen to kill herself with a knife. No hearing voices, no visual hallucination. Patient is going through financial problem can not afford paying her apartment rent. Patient reports increased stress due to housing issue and possibility to be evicted from the present apartment. She was stressed out and do not know what to do so she ran into the kitchen to grab the knife to hurt herself with a plan to kill her. History of numerous inpatient level of care admissions, last admitted was in November 2024 at [facility] [place], . No history of substance use, no PHP. At baseline she is having mood swing, anxious and depression. However possibility of being evicted from her current apartment make symptoms worse. Increased depression and anxiety, increased suicidal thoughts. Currently continued to endorse passive SI I feel like I should be . High hyper focused on housing. States she is not ready to go home yet as my mental health is not stable . Feeling pressure from her fiance' and her dad to mccray her to go home to help them packing which she is not able to handle at this time. Denies HI/SIB/AVH. Mood is labile, test for time. Formulation/clinical reasoning: Increased stress, anxiety and depression, increased suicidal thoughts with current passive SI. Labile mood. Poor concentration, frustrated easily. Not able to continue working as part-time. Quit her job last week due to stress. Prior to be brought to the emergency room she was trying to get a knife in the kitchen to cut herself to kill her purposely. She can be impulsive. Carrying bipolar disorder, PTSD. Given above information, patient could not be safe in less restrictive environment. We will make medication change to address symptoms of depression anxiety. We will continue to monitor for safety and plan to discharge when patient is more stable. Hospital course: 01/03/27: Continue with home medication; Lamictal 200 mg daily for bipolar. Olanzapine 20 mg at bedtime for mood/psychosis. Trazodone 200 mg at bedtime for insomnia. Order some labs work per protocol. U tox negative. BAL negative. HCG was negative. UA negative. Other labs work unremarkable 01/05: Tolerating buproprion. Mirtazapine 7.5 mg HS to assist with sleep (trial) 01/06/2025: Tolerating Remeron which was just started for sleep, anxiety and depression. Also noted olanzapine and trazodone and bupropion 01/07: no changes Plan Patient on 15 minute checks for safety. Monitor for passive SI. Admitted to . CV. Work with treatment team to do collateral. Treatment team to reach out to outpatient therapist and PCP to reschedule appointments. Per patient: Appointment with therapist is in January 09, and PCP appointments is on January 05. Patient signed a consent to release information for that and fiancee. Marquez- further number is [phone] Patient was medically clear at [facility] [facility] prior to be admitted to . Reason for continued inpatient stay Substantial Risk for: inability to function and rapid decompensation Time Spent With Patient Time: Total time managing care of this patient today ____ minutes.
[2025-01-07 08:10] VITALS: BP 125/68; PULSE 79; RESP 16; TEMP 36.3; O2SAT 95
[2025-01-07] MEDS: Ferrous Sulfate 324 MG TABLET.DR PO ×2 (08:15→21:03)
[2025-01-07 20:00] VITALS: BP 136/66; PULSE 80; TEMP 36.4; O2SAT 96
[2025-01-07] MEDS: Milk of Magnesia 30 ML ORAL.SUSP PO (21:06)
[2025-01-08 08:00] VITALS: BP 123/75; PULSE 89; RESP 16; TEMP 36.6; O2SAT 97
[2025-01-08] MEDS: Ferrous Sulfate 324 MG TABLET.DR PO ×2 (09:51→21:03)
--- NOTE | 2025-01-08 11:02 | P.PNPSI_ITS ---
Subjective Subjective Date of Service: 01/08/25 Reason For Visit: Bipolar D/O Interim History: Met with patient. Discussed with nursing. Anxious ref visit from [facility] later today I need to set boundaries . Encouraged same and also has staff support. Anxiety slightly less overall however. Ongoing education ref Remeron will help with mood, anxiety and hopefully concentration will also improve. Utilizing olanzapine as needed for anxiety. Denies SI. Medication Compliance: Yes Side effects from medications: No Attending Groups: Yes Review of Systems Acute medical concerns: No Review of Systems Review of Systems nothing acute Mental Status Exam Mental Status Exam Patient Appearance: Appropriate Patient Orientation: Person, Place, Time and Situation Level of Consciousness: Alert Patient Behavior: Talkative, Anxious (less) and Good Eye Contact Mood Description: Depressed and Anxious Affect Description: Anxious Ability to Follow Directions: Good Speech Pattern: Spontaneous Speech Memory Description: Intact Diagnostics Vital Signs (24Hr): Vital Signs - 24 hr 01/07/25 20:00 01/08/25 08:00 Temperature 97.6 F 97.8 F Pulse Rate 80 89 Respiratory Rate 16 Blood Pressure 136/66 123/75 Pulse Oximetry 96 97 Oxygen Delivery Method Room Air BMI result Body Mass Index 31.6 Labs 01/02/25 23:42 01/02/25 23:42 Medications Medications Current Medications Acetaminophen (Acetaminophen 325 Mg Tablet) 650 mg PO Q6H PRN PRN Reason: Headache/Pain, Scale 1-10 Last Admin: 01/03/25 16:14 Dose: 650 mg Al Hydroxide/Mg Hydroxide (Magnesium Hydrox/Alum Hydrox 30 Ml Oral.Susp) 30 ml PO Q6H PRN PRN Reason: Heartburn/Nausea Bupropion HCl (Bupropion Hcl 75 Mg Tablet) 75 mg PO DAILY [facility] Last Admin: 01/08/25 08:23 Dose: 75 mg Ferrous Sulfate (Ferrous Sulfate 324 Mg Tablet.) 324 mg PO BID [facility] Last Admin: 01/08/25 09:51 Dose: 324 mg Hydrocortisone (Hydrocortisone 1 % Cream 28.35 Gm Tube) 1 appl TOPICAL BID PRN; Protocol PRN Reason: Rash Hydroxyzine HCl (Hydroxyzine Hcl 25 Mg Tablet) 25 mg PO Q6H PRN PRN Reason: mild anxiety Last Admin: 01/07/25 18:23 Dose: 25 mg Lamotrigine (Lamotrigine 100 Mg Tablet) 200 mg PO DAILY [facility] Last Admin: 01/08/25 08:23 Dose: 200 mg Magnesium Hydroxide (Milk Of Magnesia 30 Ml Oral.Susp) 30 ml PO DAILY PRN PRN Reason: Constipation Last Admin: 01/07/25 21:06 Dose: 30 ml Mirtazapine (Mirtazapine 7.5 Mg Tablet) 7.5 mg PO BEDTIME [facility] Last Admin: 01/07/25 21:03 Dose: 7.5 mg Nicotine Polacrilex (Nicotine Polacrilex 2 Mg Gum) 4 mg BUCCAL Q2H PRN PRN Reason: Nicotine Cravings Olanzapine (Olanzapine 10 Mg Tablet) 20 mg PO BEDTIME [facility] Last Admin: 01/07/25 21:03 Dose: 20 mg Olanzapine (Olanzapine 5 Mg Tablet) 5 mg PO Q4H PRN PRN Reason: agitation Last Admin: 01/07/25 22:36 Dose: 5 mg Pantoprazole Sodium (Pantoprazole Sodium 20 Mg Tablet.Dr) 40 mg PO DAILY [facility] Last Admin: 01/08/25 08:23 Dose: 40 mg Trazodone HCl (Trazodone Hcl 100 Mg Tablet) 200 mg PO BEDTIME [facility] Last Admin: 01/07/25 21:03 Dose: 200 mg Vitamin D (Cholecalciferol (Vitamin D3) 25 Mcg Tablet) 25 mcg PO DAILY [facility] Last Admin: 01/08/25 09:51 Dose: 25 mcg Allergies Allergies Allergy/AdvReac Type Severity Reaction Status Date / Time Penicillins Allergy Mild HIVES Verified 01/02/25 23:33 naproxen (NAPROXEN) Allergy Unknown BLEEDING Verified 01/02/25 23:33 penicillin V Allergy Unknown Hives Verified 01/02/25 23:33 Assessment & Plan Assessment & Plan (1) Suicidal ideation: Status: Acute Code(s): R45.851 - Suicidal ideations (2) Bipolar disorder: Status: Acute Code(s): F31.9 - Bipolar disorder, unspecified Plan HPI: Chief complaint: I ran to kitchen to grab the knife to hurt myself Patient Patient is 44-year-old female dropped off by her boyfriend for further evaluation of depression and SI. Patient was trying to reach to the kitchen to kill herself with a knife. No hearing voices, no visual hallucination. Patient is going through financial problem can not afford paying her apartment rent. Patient reports increased stress due to housing issue and possibility to be evicted from the present apartment. She was stressed out and do not know what to do so she ran into the kitchen to grab the knife to hurt herself with a plan to kill her. History of numerous inpatient level of care admissions, last admitted was in November 2024 at [facility] [place], . No history of substance use, no PHP. At baseline she is having mood swing, anxious and depression. However possibility of being evicted from her current apartment make symptoms worse. Increased depression and anxiety, increased suicidal thoughts. Currently continued to endorse passive SI I feel like I should be . High hyper focused on housing. States she is not ready to go home yet as my mental health is not stable . Feeling pressure from her fiance' and her dad to mccray her to go home to help them packing which she is not able to handle at this time. Denies HI/SIB/AVH. Mood is labile, test for time. Formulation/clinical reasoning: Increased stress, anxiety and depression, increased suicidal thoughts with current passive SI. Labile mood. Poor concentration, frustrated easily. Not able to continue working as part-time. Quit her job last week due to stress. Prior to be brought to the emergency room she was trying to get a knife in the kitchen to cut herself to kill her purposely. She can be impulsive. Carrying bipolar disorder, PTSD. Given above information, patient could not be safe in less restrictive environment. We will make medication change to address symptoms of depression anxiety. We will continue to monitor for safety and plan to discharge when patient is more stable. Hospital course: 01/03/27: Continue with home medication; Lamictal 200 mg daily for bipolar. Olanzapine 20 mg at bedtime for mood/psychosis. Trazodone 200 mg at bedtime for insomnia. Order some labs work per protocol. U tox negative. BAL negative. HCG was negative. UA negative. Other labs work unremarkable 01/05: Tolerating buproprion. Mirtazapine 7.5 mg HS to assist with sleep (trial) 01/06/2025: Tolerating Remeron which was just started for sleep, anxiety and depression. Also noted olanzapine and trazodone and bupropion 01/07: no changes 01/08: no changes Plan Patient on 15 minute checks for safety. Monitor for passive SI. Admitted to [facility]. CV. Work with treatment team to do collateral. Treatment team to reach out to outpatient therapist and PCP to reschedule appointments. Per patient: Appointment with therapist is in January 09, and PCP appointments is on January 05. Patient signed a consent to release information for that and fiancee. Marquez- further number is [phone] Patient was medically clear at [facility] prior to be admitted to . Reason for continued inpatient stay Substantial Risk for: rapid decompensation Time Spent With Patient Time: Total time managing care of this patient today ____ minutes.
[2025-01-08 20:00] VITALS: BP 140/97; PULSE 106; RESP 16; TEMP 36.4; O2SAT 96
[2025-01-09 07:48] VITALS: BP 135/86; PULSE 93; RESP 18; TEMP 36.8; O2SAT 96
[2025-01-09] MEDS: Ferrous Sulfate 324 MG TABLET.DR PO ×2 (08:09→20:47)
[2025-01-09] MEDS: Milk of Magnesia 30 ML ORAL.SUSP PO (08:41)
--- NOTE | 2025-01-09 09:39 | HO.PSYCHPN ---
Subjective Subjective Date of Service: 01/09/25 Reason For Visit: Bipolar D/O Subjective Notes: Conditional Voluntary Healthcare Proxy: No Guardianship: No Medical Problems Affecting Mental Status: No Interim History: Pt reports racing of thought, not feeling like she slept, concern about constipation and urinary leakage experienced at times. Also concerned that unit washer is broken-has asked her friend to do her laundry who has agreed to help out. Review of physical issues- hx of TBI-recent- CAT completed, negative results. Urine Culture is negative Laxative ordered prn for constipation. Review of meds-reports racing of thought- will DC Mirtazapine, Wellbutrin-trial Glendon 450 mg HS. Team report pt is sleeping, however, she reports it does not feel like she has slept. Medication Compliance: Yes Side effects from medications: No Attending Groups: Intermittent Review of Systems as noted Review of Systems Review of Systems constipation urinary leaking, culture negative. Mental Status Exam Mental Status Exam Patient Appearance: Fatigued and Appropriate Patient Orientation: Person, Place, Time and Situation Level of Consciousness: Alert Patient Behavior: Talkative and Good Eye Contact Mood Description: Anxious and Apprehensive Affect Description: Anxious and Apprehensive Patient Cognition Impaired: No Ability to Follow Directions: Good Speech Pattern: Spontaneous Speech Memory Description: Intact Hallucinations: None Delusions: Not Present Thought Process: Distracted and Rumination Thought Content: positive for Perseveration and positive for Suicidal Ideation (denies) Depressive Symptoms: Increased Anxiety, Diff. Making Decisions, Hopelessness, Unhappiness and Difficulty Concentrating Judgement: Fair Diagnostics Vital Signs (24Hr): Vital Signs - 24 hr 01/08/25 20:00 01/09/25 07:48 Temperature 97.5 F 98.2 F Pulse Rate 106 H 93 Respiratory Rate 16 18 Blood Pressure 140/97 H 135/86 Pulse Oximetry 96 96 Oxygen Delivery Method Room Air Room Air BMI result Body Mass Index 31.6 Labs 01/02/25 23:42 01/02/25 23:42 Medications Medications Current Medications Acetaminophen (Acetaminophen 325 Mg Tablet) 650 mg PO Q6H PRN PRN Reason: Headache/Pain, Scale 1-10 Last Admin: 01/03/25 16:14 Dose: 650 mg Al Hydroxide/Mg Hydroxide (Magnesium Hydrox/Alum Hydrox 30 Ml Oral.Susp) 30 ml PO Q6H PRN PRN Reason: Heartburn/Nausea Bupropion HCl (Bupropion Hcl 75 Mg Tablet) 75 mg PO DAILY [facility] Last Admin: 01/09/25 08:09 Dose: 75 mg Ferrous Sulfate (Ferrous Sulfate 324 Mg Tablet.) 324 mg PO BID [facility] Last Admin: 01/09/25 08:09 Dose: 324 mg Hydrocortisone (Hydrocortisone 1 % Cream 28.35 Gm Tube) 1 appl TOPICAL BID PRN; Protocol PRN Reason: Rash Hydroxyzine HCl (Hydroxyzine Hcl 25 Mg Tablet) 25 mg PO Q6H PRN PRN Reason: mild anxiety Last Admin: 01/08/25 21:02 Dose: 25 mg Lamotrigine (Lamotrigine 100 Mg Tablet) 200 mg PO DAILY [facility] Last Admin: 01/09/25 08:09 Dose: 200 mg Magnesium Hydroxide (Milk Of Magnesia 30 Ml Oral.Susp) 30 ml PO DAILY PRN PRN Reason: Constipation Last Admin: 01/09/25 08:41 Dose: 30 ml Mirtazapine (Mirtazapine 7.5 Mg Tablet) 7.5 mg PO BEDTIME [facility] Last Admin: 01/08/25 21:03 Dose: 7.5 mg Nicotine Polacrilex (Nicotine Polacrilex 2 Mg Gum) 4 mg BUCCAL Q2H PRN PRN Reason: Nicotine Cravings Olanzapine (Olanzapine 10 Mg Tablet) 20 mg PO BEDTIME [facility] Last Admin: 01/08/25 21:03 Dose: 20 mg Olanzapine (Olanzapine 5 Mg Tablet) 5 mg PO Q4H PRN PRN Reason: agitation Last Admin: 01/07/25 22:36 Dose: 5 mg Pantoprazole Sodium (Pantoprazole Sodium 20 Mg Tablet.) 40 mg PO DAILY [facility] Last Admin: 01/09/25 08:09 Dose: 40 mg Trazodone HCl (Trazodone Hcl 100 Mg Tablet) 200 mg PO BEDTIME [facility] Last Admin: 01/08/25 21:03 Dose: 200 mg Vitamin D (Cholecalciferol (Vitamin D3) 25 Mcg Tablet) 25 mcg PO DAILY [facility] Last Admin: 01/09/25 08:09 Dose: 25 mcg Allergies Allergies Allergy/AdvReac Type Severity Reaction Status Date / Time Penicillins Allergy Mild HIVES Verified 01/02/25 23:33 naproxen (NAPROXEN) Allergy Unknown BLEEDING Verified 01/02/25 23:33 penicillin V Allergy Unknown Hives Verified 01/02/25 23:33 Assessment & Plan Assessment & Plan (1) Suicidal ideation: Status: Acute Code(s): R45.851 - Suicidal ideations (2) Bipolar disorder: Status: Acute Code(s): F31.9 - Bipolar disorder, unspecified Plan HPI: Chief complaint: I ran to kitchen to grab the knife to hurt myself Patient Patient is 44-year-old female dropped off by her boyfriend for further evaluation of depression and SI. Patient was trying to reach to the kitchen to kill herself with a knife. No hearing voices, no visual hallucination. Patient is going through financial problem can not afford paying her apartment rent. Patient reports increased stress due to housing issue and possibility to be evicted from the present apartment. She was stressed out and do not know what to do so she ran into the kitchen to grab the knife to hurt herself with a plan to kill her. History of numerous inpatient level of care admissions, last admitted was [place] 20[place] [facility] . No history of substance use, no PHP. At baseline she is having mood swing, anxious and depression. However possibility of being evicted from her current apartment make symptoms worse. Increased depression and anxiety, increased suicidal thoughts. Currently continued to endorse passive SI I feel like I should be . High hyper focused on housing. States she is not ready to go home yet as my mental health is not stable . Feeling pressure from her fiance' and her dad to mccray her to go home to help them packing which she is not able to handle at this time. Denies HI/SIB/AVH. Mood is labile, test for time. Formulation/clinical reasoning: Increased stress, anxiety and depression, increased suicidal thoughts with current passive SI. Labile mood. Poor concentration, frustrated easily. Not able to continue working as part-time. Quit her job last week due to stress. Prior to be brought to the emergency room she was trying to get a knife in the kitchen to cut herself to kill her purposely. She can be impulsive. Carrying bipolar disorder, PTSD. Given above information, patient could not be safe in less restrictive environment. We will make medication change to address symptoms of depression anxiety. We will continue to monitor for safety and plan to discharge when patient is more stable. Hospital course: 01/03/27: Continue with home medication; Lamictal 200 mg daily for bipolar. Olanzapine 20 mg at bedtime for mood/psychosis. Trazodone 200 mg at bedtime for insomnia. Order some labs work per protocol. U tox negative. BAL negative. HCG was negative. UA negative. Other labs work unremarkable 01/05: Tolerating buproprion. Mirtazapine 7.5 mg HS to assist with sleep (trial) 01/06/2025: Tolerating Remeron which was just started for sleep, anxiety and depression. Also noted olanzapine and trazodone and bupropion 01/07: no changes 01/08: no changes 01/09: DC Wellbutrin,Mirtazapine Glendon 450 mg HS Plan Patient on 15 minute checks for safety. Monitor for passive SI. Admitted to . CV. Work with treatment team to do collateral. Treatment team to reach out to outpatient therapist and PCP to reschedule appointments. Per patient: Appointment with therapist is in January 09, and PCP appointments is on January 05. Patient signed a consent to release information for zbigniew and fiancee. Marquez-further number is [phone] Patient was medically clear at [facility] prior to be admitted to . Reason for continued inpatient stay Substantial Risk for: rapid decompensation Time Spent With Patient Time: Total time managing care of this patient today ____ minutes.
[2025-01-09 20:00] VITALS: BP 138/91; PULSE 100; RESP 16; TEMP 36.3; O2SAT 96
[2025-01-10 08:00] VITALS: BP 119/83; PULSE 91; RESP 16; TEMP 36.7; O2SAT 96
[2025-01-10] MEDS: Ferrous Sulfate 324 MG TABLET.DR PO ×2 (08:58→20:08)
--- NOTE | 2025-01-10 09:48 | P.PNPSI_ITS ---
Subjective Subjective Date of Service: 01/10/25 Reason For Visit: Bipolar D/O Subjective Notes: Conditional Voluntary Healthcare Proxy: No Guardianship: No Medical Problems Affecting Mental Status: No Interim History: Pt remains with some racing of thought-slept better with initial dose of Tradewinds she reports. Reports constipation persists along with mild urinary incontinence- a few drops a few times a day Concerned and perseverative on these symptoms today. Review of laxative options, she will consider. Pt had a vist from a friend, her boss at work which she reports went well. Parag expected to visit this evening. Asking team to call parag and instruct him on what she would like done. Team is redirecting this to helping her clarify communication with parag. Discussion of housing post discharge. Current plan is for pt and parag to move in with her father, an environment she describes as supportive for both of them. Medication Compliance: Yes Side effects from medications: No Attending Groups: Intermittent Review of Systems as noted Review of Systems Review of Systems Reports constipation Reports some minor urinary leaking as well. Mental Status Exam Mental Status Exam Patient Appearance: Appropriate Patient Orientation: Person, Place, Time and Situation Level of Consciousness: Alert Patient Behavior: Talkative and Good Eye Contact Mood Description: Anxious and Apprehensive Affect Description: Anxious and Apprehensive Patient Cognition Impaired: No Ability to Follow Directions: Good Speech Pattern: Spontaneous Speech Memory Description: Intact Hallucinations: None Delusions: Not Present Thought Process: Racing, Distracted and Rumination Thought Content: positive for Racing, positive for Perseveration and positive for Suicidal Ideation (denies) Depressive Symptoms: Increased Anxiety, Diff. Making Decisions, Hopelessness, Unhappiness and Difficulty Concentrating Judgement: Fair Diagnostics Vital Signs (24Hr): Vital Signs - 24 hr 01/09/25 20:00 Temperature 97.4 F Pulse Rate 100 Respiratory Rate 16 Blood Pressure 138/91 H Pulse Oximetry 96 Oxygen Delivery Method Room Air BMI result Body Mass Index 31.6 Labs 01/02/25 23:42 01/02/25 23:42 Imaging Radiology Impressions: ITS Impressions Head CT 01/09/25 10:32 IMPRESSION: No acute intracranial abnormality. Electronically signed by: Jesus Nails MD 01/09/2025 11:56 AM EDT Medications Medications Current Medications Acetaminophen (Acetaminophen 325 Mg Tablet) 650 mg PO Q6H PRN PRN Reason: Headache/Pain, Scale 1-10 Last Admin: 01/03/25 16:14 Dose: 650 mg Al Hydroxide/Mg Hydroxide (Magnesium Hydrox/Alum Hydrox 30 Ml Oral.Susp) 30 ml PO Q6H PRN PRN Reason: Heartburn/Nausea Ferrous Sulfate (Ferrous Sulfate 324 Mg Tablet.) 324 mg PO BID [facility] Last Admin: 01/10/25 08:58 Dose: 324 mg Hydrocortisone (Hydrocortisone 1 % Cream 28.35 Gm Tube) 1 appl TOPICAL BID PRN; Protocol PRN Reason: Rash Hydroxyzine HCl (Hydroxyzine Hcl 25 Mg Tablet) 25 mg PO Q6H PRN PRN Reason: mild anxiety Last Admin: 01/08/25 21:02 Dose: 25 mg Lamotrigine (Lamotrigine 100 Mg Tablet) 200 mg PO DAILY [facility] Last Admin: 01/10/25 08:58 Dose: 200 mg Tradewinds Carbonate (Tradewinds Carbonate Er 450 Mg Tablet.Er) 450 mg PO BEDTIME [facility] Last Admin: 01/09/25 20:47 Dose: 450 mg Magnesium Hydroxide (Milk Of Magnesia 30 Ml Oral.Susp) 30 ml PO DAILY PRN PRN Reason: Constipation Last Admin: 01/09/25 08:41 Dose: 30 ml Nicotine Polacrilex (Nicotine Polacrilex 2 Mg Gum) 4 mg BUCCAL Q2H PRN PRN Reason: Nicotine Cravings Olanzapine (Olanzapine 5 Mg Tablet) 5 mg PO Q4H PRN PRN Reason: agitation Last Admin: 01/07/25 22:36 Dose: 5 mg Olanzapine (Olanzapine 5 Mg Tablet) 25 mg PO BEDTIME [facility] Last Admin: 01/09/25 20:47 Dose: 25 mg Pantoprazole Sodium (Pantoprazole Sodium 20 Mg Tablet.) 40 mg PO DAILY [facility] Last Admin: 01/10/25 08:58 Dose: 40 mg Trazodone HCl (Trazodone Hcl 100 Mg Tablet) 200 mg PO BEDTIME [facility] Last Admin: 01/09/25 20:47 Dose: 200 mg Vitamin D (Cholecalciferol (Vitamin D3) 25 Mcg Tablet) 25 mcg PO DAILY [facility] Last Admin: 01/10/25 08:58 Dose: 25 mcg Allergies Allergies Allergy/AdvReac Type Severity Reaction Status Date / Time Penicillins Allergy Mild HIVES Verified 01/02/25 23:33 naproxen (NAPROXEN) Allergy Unknown BLEEDING Verified 01/02/25 23:33 penicillin V Allergy Unknown Hives Verified 01/02/25 23:33 Assessment & Plan Assessment & Plan (1) Suicidal ideation: Status: Acute Code(s): R45.851 - Suicidal ideations (2) Bipolar disorder: Status: Acute Code(s): F31.9 - Bipolar disorder, unspecified Plan HPI: Chief complaint: I ran to kitchen to grab the knife to hurt myself Patient Patient is 44-year-old female dropped off by her boyfriend for further evaluation of depression and SI. Patient was trying to reach to the kitchen to kill herself with a knife. No hearing voices, no visual hallucination. Patient is going through financial problem can not afford paying her apartment rent. Patient reports increased stress due to housing issue and possibility to be evicted from the present apartment. She was stressed out and do not know what to do so she ran into the kitchen to grab the knife to hurt herself with a plan to kill her. History of numerous inpatient level of care admissions, last admitted was in November [address] [facility] [place], . No history of substance use, no PHP. At baseline she is having mood swing, anxious and depression. However possibility of being evicted from her current apartment make symptoms worse. Increased depression and anxiety, increased suicidal thoughts. Currently continued to endorse passive SI I feel like I should be . High hyper focused on housing. States she is not ready to go home yet as my mental health is not stable . Feeling pressure from her fiance' and her dad to mccray her to go home to help them packing which she is not able to handle at this time. Denies HI/SIB/AVH. Mood is labile, test for time. Formulation/clinical reasoning: Increased stress, anxiety and depression, increased suicidal thoughts with current passive SI. Labile mood. Poor concentration, frustrated easily. Not able to continue working as part-time. Quit her job last week due to stress. Prior to be brought to the emergency room she was trying to get a knife in the kitchen to cut herself to kill her purposely. She can be impulsive. Carrying bipolar disorder, PTSD. Given above information, patient could not be safe in less restrictive environment. We will make medication change to address symptoms of depression anxiety. We will continue to monitor for safety and plan to discharge when patient is more stable. Hospital course: 01/03/27: Continue with home medication; Lamictal 200 mg daily for bipolar. Olanzapine 20 mg at bedtime for mood/psychosis. Trazodone 200 mg at bedtime for insomnia. Order some labs work per protocol. U tox negative. BAL negative. HCG was negative. UA negative. Other labs work unremarkable 01/05: Tolerating buproprion. Mirtazapine 7.5 mg HS to assist with sleep (trial) 01/06/2025: Tolerating Remeron which was just started for sleep, anxiety and depression. Also noted olanzapine and trazodone and bupropion 01/07: no changes 01/08: no changes 01/10: Tolerating Tradewinds. Will consider increase 01/11 Considering options for laxatives and bowel maintenance. Will continue to discuss. Dulcolax ordered x 1. Pt will decide if she will trial. Plan Patient on 15 minute checks for safety. Monitor for passive SI. Admitted to . CV. Work with treatment team to do collateral. Treatment team to reach out to outpatient therapist and PCP to reschedule appointments. Per patient: Appointment with therapist is in January 09, and PCP appointments is on January 05. Patient signed a consent to release information for zbigniew and fiancee. Marquez- further number is [phone] Patient was medically clear at [facility] prior to be admitted to . Patient educated on: therapeutic strategies and medical condition Informed Consent: understands Reason for continued inpatient stay Substantial Risk for: rapid decompensation Time Spent With Patient Time: Total time managing care of this patient today ____ minutes.
[2025-01-10 20:00] VITALS: BP 133/83; PULSE 106; RESP 16; TEMP 36.8; O2SAT 97
[2025-01-11 08:00] VITALS: BP 144/77; PULSE 88; RESP 16; TEMP 36.8; O2SAT 98
--- NOTE | 2025-01-11 10:50 | HO.PSYCHPN ---
Subjective Subjective Date of Service: 01/11/25 Reason For Visit: Bipolar D/O Subjective Notes: Conditional Voluntary Interim History: Pt reports an argument with her partner when he visited last evening. Team reports pt is exhibiting dependent symptoms, asking that basic tasks be completed for her. It is described as learned helplessness which we discussed. Housing is secure. Pt and partner will live with her father whom she finds a good support. Pt discussing partner needing to move for her. We discussed pt participating in this task and sharing responsibility- I want to stay in the hospital until it is complete. Discussed this thought. Reports constipation- KUB WNL. Will implement a bowel regime Review of meds: will increase Olanzapine and [place] Discussed TBI hx. Medication Compliance: Yes Side effects from medications: No Attending Groups: Yes Review of Systems Review of Systems constipation Mental Status Exam Mental Status Exam Patient Appearance: Appropriate Patient Orientation: Person, Place, Time and Situation Level of Consciousness: Alert Patient Behavior: Talkative and Good Eye Contact Mood Description: Anxious and Apprehensive Affect Description: Anxious and Apprehensive Patient Cognition Impaired: No Ability to Follow Directions: Good Speech Pattern: Spontaneous Speech Memory Description: Intact Hallucinations: None Delusions: Not Present Thought Process: Racing, Distracted and Rumination Thought Content: positive for Racing, positive for Perseveration and positive for Suicidal Ideation (denies) Depressive Symptoms: Increased Anxiety, Diff. Making Decisions, Hopelessness, Unhappiness and Difficulty Concentrating Judgement: Fair Diagnostics Vital Signs (24Hr): Vital Signs - 24 hr 01/10/25 20:00 01/11/25 08:00 Temperature 98.2 F 98.2 F Pulse Rate 106 H 88 Respiratory Rate 16 16 Blood Pressure 133/83 144/77 H Pulse Oximetry 97 98 Oxygen Delivery Method Room Air BMI result Body Mass Index 31.6 Labs 01/02/25 23:42 01/02/25 23:42 Imaging Radiology Impressions: ITS Impressions Head CT 01/09/25 10:32 IMPRESSION: No acute intracranial abnormality. Electronically signed by: Jesus Nails MD 01/09/2025 11:56 AM EDT Medications Medications Current Medications Acetaminophen (Acetaminophen 325 Mg Tablet) 650 mg PO Q6H PRN PRN Reason: Headache/Pain, Scale 1-10 Last Admin: 01/03/25 16:14 Dose: 650 mg Al Hydroxide/Mg Hydroxide (Magnesium Hydrox/Alum Hydrox 30 Ml Oral.Susp) 30 ml PO Q6H PRN PRN Reason: Heartburn/Nausea Ferrous Sulfate (Ferrous Sulfate 324 Mg Tablet.) 324 mg PO BID [facility] Last Admin: 01/11/25 10:29 Dose: Not Given Hydrocortisone (Hydrocortisone 1 % Cream 28.35 Gm Tube) 1 appl TOPICAL BID PRN; Protocol PRN Reason: Rash Hydroxyzine HCl (Hydroxyzine Hcl 25 Mg Tablet) 25 mg PO Q6H PRN PRN Reason: mild anxiety Last Admin: 01/11/25 10:29 Dose: 25 mg Lamotrigine (Lamotrigine 100 Mg Tablet) 200 mg PO DAILY [facility] Last Admin: 01/11/25 10:28 Dose: 200 mg [place] Carbonate ([place] Carbonate Er 450 Mg Tablet.Er) 450 mg PO BEDTIME [facility] Last Admin: 01/10/25 20:07 Dose: 450 mg Magnesium Hydroxide (Milk Of Magnesia 30 Ml Oral.Susp) 30 ml PO DAILY PRN PRN Reason: Constipation Last Admin: 01/09/25 08:41 Dose: 30 ml Nicotine Polacrilex (Nicotine Polacrilex 2 Mg Gum) 4 mg BUCCAL Q2H PRN PRN Reason: Nicotine Cravings Olanzapine (Olanzapine 5 Mg Tablet) 5 mg PO Q4H PRN PRN Reason: agitation Last Admin: 01/11/25 10:29 Dose: 5 mg Olanzapine (Olanzapine 5 Mg Tablet) 25 mg PO BEDTIME [facility] Last Admin: 01/10/25 20:08 Dose: 25 mg Pantoprazole Sodium (Pantoprazole Sodium 20 Mg Tablet.) 40 mg PO DAILY [facility] Last Admin: 01/11/25 10:29 Dose: 40 mg Trazodone HCl (Trazodone Hcl 100 Mg Tablet) 200 mg PO BEDTIME [facility] Last Admin: 01/10/25 20:07 Dose: 200 mg Vitamin D (Cholecalciferol (Vitamin D3) 25 Mcg Tablet) 25 mcg PO DAILY [facility] Last Admin: 01/11/25 10:29 Dose: 25 mcg Allergies Allergies Allergy/AdvReac Type Severity Reaction Status Date / Time Penicillins Allergy Mild HIVES Verified 01/02/25 23:33 naproxen (NAPROXEN) Allergy Unknown BLEEDING Verified 01/02/25 23:33 penicillin V Allergy Unknown Hives Verified 01/02/25 23:33 Assessment & Plan Assessment & Plan (1) Suicidal ideation: Status: Acute Code(s): R45.851 - Suicidal ideations (2) Bipolar disorder: Status: Acute Code(s): F31.9 - Bipolar disorder, unspecified Plan HPI: Chief complaint: I ran to kitchen to grab the knife to hurt myself Patient Patient is 44-year-old female dropped off by her boyfriend for further evaluation of depression and SI. Patient was trying to reach to the kitchen to kill herself with a knife. No hearing voices, no visual hallucination. Patient is going through financial problem can not afford paying her apartment rent. Patient reports increased stress due to housing issue and possibility to be evicted from the present apartment. She was stressed out and do not know what to do so she ran into the kitchen to grab the knife to hurt herself with a plan to kill her. History of numerous inpatient level of care admissions, last admitted was in November [address] [facility], . No history of substance use, no PHP. At baseline she is having mood swing, anxious and depression. However possibility of being evicted from her current apartment make symptoms worse. Increased depression and anxiety, increased suicidal thoughts. Currently continued to endorse passive SI I feel like I should be . High hyper focused on housing. States she is not ready to go home yet as my mental health is not stable . Feeling pressure from her fiance' and her dad to mccray her to go home to help them packing which she is not able to handle at this time. Denies HI/SIB/AVH. Mood is labile, test for time. Formulation/clinical reasoning: Increased stress, anxiety and depression, increased suicidal thoughts with current passive SI. Labile mood. Poor concentration, frustrated easily. Not able to continue working as part-time. Quit her job last week due to stress. Prior to be brought to the emergency room she was trying to get a knife in the kitchen to cut herself to kill her purposely. She can be impulsive. Carrying bipolar disorder, PTSD. Given above information, patient could not be safe in less restrictive environment. We will make medication change to address symptoms of depression anxiety. We will continue to monitor for safety and plan to discharge when patient is more stable. Hospital course: 01/03/27: Continue with home medication; Lamictal 200 mg daily for bipolar. Olanzapine 20 mg at bedtime for mood/psychosis. Trazodone 200 mg at bedtime for insomnia. Order some labs work per protocol. U tox negative. BAL negative. HCG was negative. UA negative. Other labs work unremarkable 01/05: Tolerating buproprion. Mirtazapine 7.5 mg HS to assist with sleep (trial) 01/06/2025: Tolerating Remeron which was just started for sleep, anxiety and depression. Also noted olanzapine and trazodone and bupropion 01/07: no changes 01/08: no changes 01/09: DC Wellbutrin,Mirtazapine [place] 450 mg HS 01/11 Increase [place] to 900 mg HS Increase Olanzapine to 30 mg HS Plan Patient on 15 minute checks for safety. Monitor for passive SI. Admitted to . CV. Work with treatment team to do collateral. Treatment team to reach out to outpatient therapist and PCP to reschedule appointments. Per patient: Appointment with therapist is in January 09, and PCP appointments is on January 05. Patient signed a consent to release information for that and fiancee. Marquez-further number is [phone] Patient was medically clear at [facility] ED prior to be admitted to . Reason for continued inpatient stay Substantial Risk for: rapid decompensation Time Spent With Patient Time: Total time managing care of this patient today ____ minutes.
[2025-01-11 20:00] VITALS: BP 127/82; PULSE 104; RESP 18; TEMP 36.8; O2SAT 96
[2025-01-11] MEDS: Ferrous Sulfate 324 MG TABLET.DR PO (21:33)
[2025-01-12 08:00] VITALS: BP 118/77; PULSE 93; RESP 16; TEMP 36.3; O2SAT 97
--- NOTE | 2025-01-12 09:30 | P.PNPSI_ITS ---
Subjective Subjective Date of Service: 01/12/25 Reason For Visit: Bipolar D/O Subjective Notes: Conditional Voluntary Interim History: Med/dose review. Pt able to write down her meds and their purpose with discussion. Labs ordered for 01/13. Discussed participating in the upcoming move and focus on what she can do vs what she cannot do. Ambivalent about partner visiting as they had a disagreement during the last visit. Encouraged further discussion on the phone prior to the visit to decrease tensions. Attending groups, reports feeling less anxious. Medication Compliance: Yes Side effects from medications: No Attending Groups: Yes Review of Systems Acute medical concerns: No Review of Systems Review of Systems denies today Mental Status Exam Mental Status Exam Patient Appearance: Appropriate Patient Orientation: Person, Place, Time and Situation Level of Consciousness: Alert Patient Behavior: Talkative and Good Eye Contact Mood Description: Anxious and Apprehensive Affect Description: Anxious and Apprehensive Patient Cognition Impaired: No Ability to Follow Directions: Good Speech Pattern: Spontaneous Speech Memory Description: Intact Hallucinations: None Delusions: Not Present Thought Process: Racing, Distracted and Rumination Thought Content: positive for Racing, positive for Perseveration and positive for Suicidal Ideation (denies) Depressive Symptoms: Increased Anxiety, Diff. Making Decisions, Hopelessness, Unhappiness and Difficulty Concentrating Judgement: Fair Diagnostics Vital Signs (24Hr): Vital Signs - 24 hr 01/11/25 20:00 Temperature 98.2 F Pulse Rate 104 H Respiratory Rate 18 Blood Pressure 127/82 Pulse Oximetry 96 Oxygen Delivery Method Room Air BMI result Body Mass Index 31.6 Labs 01/02/25 23:42 01/02/25 23:42 Imaging Radiology Impressions: ITS Impressions Head CT 01/09/25 10:32 IMPRESSION: No acute intracranial abnormality. Electronically signed by: Jesus Nails MD 01/09/2025 11:56 AM EDT RP KUB X-Ray 01/11/25 11:35 IMPRESSION: No intestinal obstruction pattern. Probable nephrolithiasis, left kidney. Scoliosis and multilevel thoracolumbar spondylosis. Electronically signed by: Karl Johns MD 01/11/2025 11:59 AM EDT RP Medications Medications Current Medications Acetaminophen (Acetaminophen 325 Mg Tablet) 650 mg PO Q6H PRN PRN Reason: Headache/Pain, Scale 1-10 Last Admin: 01/03/25 16:14 Dose: 650 mg Al Hydroxide/Mg Hydroxide (Magnesium Hydrox/Alum Hydrox 30 Ml Oral.Susp) 30 ml PO Q6H PRN PRN Reason: Heartburn/Nausea Bisacodyl (Bisacodyl 5 Mg Tablet.) 10 mg PO BEDTIME PRN PRN Reason: Constipation Chlorpromazine HCl (Chlorpromazine Hcl 25 Mg Tablet) 25 mg PO TID PRN PRN Reason: racing thoughts Last Admin: 01/11/25 21:37 Dose: 25 mg Docusate Sodium (Docusate Sodium 100 Mg Capsule) 100 mg PO BEDTIME [facility] Last Admin: 01/11/25 21:38 Dose: 100 mg Ferrous Sulfate (Ferrous Sulfate 324 Mg Tablet.) 324 mg PO BID [facility] Last Admin: 01/12/25 09:04 Dose: Not Given Hydrocortisone (Hydrocortisone 1 % Cream 28.35 Gm Tube) 1 appl TOPICAL BID PRN; Protocol PRN Reason: Rash Hydroxyzine HCl (Hydroxyzine Hcl 25 Mg Tablet) 25 mg PO Q6H PRN PRN Reason: mild anxiety Last Admin: 01/11/25 21:38 Dose: 25 mg Lamotrigine (Lamotrigine 100 Mg Tablet) 200 mg PO DAILY [facility] Last Admin: 01/12/25 08:59 Dose: 200 mg [place] Carbonate ([place] Carbonate Er 450 Mg Tablet.Er) 900 mg PO BEDTIME [facility] Last Admin: 01/11/25 21:37 Dose: 900 mg Magnesium Hydroxide (Milk Of Magnesia 30 Ml Oral.Susp) 30 ml PO DAILY PRN PRN Reason: Constipation Last Admin: 01/09/25 08:41 Dose: 30 ml Nicotine Polacrilex (Nicotine Polacrilex 2 Mg Gum) 4 mg BUCCAL Q2H PRN PRN Reason: Nicotine Cravings Olanzapine (Olanzapine 5 Mg Tablet) 5 mg PO Q4H PRN PRN Reason: agitation Last Admin: 01/11/25 15:08 Dose: 5 mg Olanzapine (Olanzapine 10 Mg Tablet) 30 mg PO BEDTIME [facility] Last Admin: 01/11/25 21:33 Dose: 30 mg Pantoprazole Sodium (Pantoprazole Sodium 20 Mg Tablet.) 40 mg PO DAILY [facility] Last Admin: 01/12/25 09:06 Dose: 40 mg Polyethylene Glycol (Polyethylene Glycol 3350 17 Gm Powd.Pack) 17 gm PO DAILY [facility] Last Admin: 01/12/25 09:04 Dose: Not Given Trazodone HCl (Trazodone Hcl 100 Mg Tablet) 200 mg PO BEDTIME [facility] Last Admin: 01/11/25 21:38 Dose: 200 mg Vitamin D (Cholecalciferol (Vitamin D3) 25 Mcg Tablet) 25 mcg PO DAILY [facility] Last Admin: 01/12/25 08:59 Dose: 25 mcg Allergies Allergies Allergy/AdvReac Type Severity Reaction Status Date / Time Penicillins Allergy Mild HIVES Verified 01/02/25 23:33 naproxen (NAPROXEN) Allergy Unknown BLEEDING Verified 01/02/25 23:33 penicillin V Allergy Unknown Hives Verified 01/02/25 23:33 Assessment & Plan Assessment & Plan (1) Suicidal ideation: Status: Acute Code(s): R45.851 - Suicidal ideations (2) Bipolar disorder: Status: Acute Code(s): F31.9 - Bipolar disorder, unspecified Plan HPI: Chief complaint: I ran to kitchen to grab the knife to hurt myself Patient Patient is 44-year-old female dropped off by her boyfriend for further evaluation of depression and SI. Patient was trying to reach to the kitchen to kill herself with a knife. No hearing voices, no visual hallucination. Patient is going through financial problem can not afford paying her apartment rent. Patient reports increased stress due to housing issue and possibility to be evicted from the present apartment. She was stressed out and do not know what to do so she ran into the kitchen to grab the knife to hurt herself with a plan to kill her. History of numerous inpatient level of care admissions, last admitted was in November 2024 at [facility], . No history of substance use, no PHP. At baseline she is having mood swing, anxious and depression. However possibility of being evicted from her current apartment make symptoms worse. Increased depression and anxiety, increased suicidal thoughts. Currently continued to endorse passive SI I feel like I should be . High hyper focused on housing. States she is not ready to go home yet as my mental health is not stable . Feeling pressure from her fiance' and her dad to mccray her to go home to help them packing which she is not able to handle at this time. Denies HI/SIB/AVH. Mood is labile, test for time. Formulation/clinical reasoning: Increased stress, anxiety and depression, increased suicidal thoughts with current passive SI. Labile mood. Poor concentration, frustrated easily. Not able to continue working as part-time. Quit her job last week due to stress. Prior to be brought to the emergency room she was trying to get a knife in the kitchen to cut herself to kill her purposely. She can be impulsive. Carrying bipolar disorder, PTSD. Given above information, patient could not be safe in less restrictive environment. We will make medication change to address symptoms of depression anxiety. We will continue to monitor for safety and plan to discharge when patient is more stable. Hospital course: 01/03/27: Continue with home medication; Lamictal 200 mg daily for bipolar. Olanzapine 20 mg at bedtime for mood/psychosis. Trazodone 200 mg at bedtime for insomnia. Order some labs work per protocol. U tox negative. BAL negative. HCG was negative. UA negative. Other labs work unremarkable 01/05: Tolerating buproprion. Mirtazapine 7.5 mg HS to assist with sleep (trial) 01/06/2025: Tolerating Remeron which was just started for sleep, anxiety and depression. Also noted olanzapine and trazodone and bupropion 01/07: no changes 01/08: no changes 01/10: Tolerating [place]. Will consider increase 01/11 Considering options for laxatives and bowel maintenance. Will continue to discuss. Dulcolax ordered x 1. Pt will decide if she will trial. 01/12: [place] level 01/13. Continue tx. Plan Patient on 15 minute checks for safety. Monitor for passive SI. Admitted to . CV. Work with treatment team to do collateral. Treatment team to reach out to outpatient therapist and PCP to reschedule appointments. Per patient: Appointment with therapist is in January 09, and PCP appointments is on January 05. Patient signed a consent to release information for zbigniew and fiancee. Marquez- further number is [phone] Patient was medically clear at [facility] ED prior to be admitted to . Reason for continued inpatient stay Substantial Risk for: rapid decompensation Time Spent With Patient Time: Total time managing care of this patient today ____ minutes.
[2025-01-12 20:00] VITALS: BP 129/82; PULSE 120; TEMP 36.4; O2SAT 97
[2025-01-12] MEDS: Ferrous Sulfate 324 MG TABLET.DR PO (20:33)
[2025-01-13 07:46] LABS: Lithium 1.06 mmol/L (0.60-1.20)
[2025-01-13 08:00] VITALS: BP 132/87; PULSE 81; RESP 18; TEMP 36.8; O2SAT 98
[2025-01-13] MEDS: Ferrous Sulfate 324 MG TABLET.DR PO ×2 (08:31→21:34)
--- NOTE | 2025-01-13 10:36 | HO.PSYCHPN ---
Subjective Subjective Date of Service: 01/13/25 Reason For Visit: Bipolar D/O Subjective Notes: Conditional Voluntary Healthcare Proxy: No Guardianship: No Medical Problems Affecting Mental Status: No Interim History: I am better. Reports [place] to be effective. Level 1.06-will decrease dose to 450 mg and monitor. Laxatives changed to prn. Fiancee to visit today. Reports sleeping, attending groups, adequate food and fluid intake. Presents with less anxiety. Discussed regret as I put on Facebook that I am in a psych hospital . Discussed Discharge planning for next week. Medication Compliance: Yes Side effects from medications: No Attending Groups: Yes Review of Systems Acute medical concerns: No Medical Review of Systems: unchanged Review of Systems Review of Systems Denies today Mental Status Exam Mental Status Exam Patient Appearance: Appropriate Patient Orientation: Person, Place, Time and Situation Level of Consciousness: Alert Patient Behavior: Talkative and Good Eye Contact Mood Description: Apprehensive Affect Description: Apprehensive Patient Cognition Impaired: No Ability to Follow Directions: Good Speech Pattern: Spontaneous Speech Memory Description: Intact Hallucinations: None Delusions: Not Present Thought Process: Distracted Thought Content: positive for Perseveration and positive for Suicidal Ideation (denies) Depressive Symptoms: Diff. Making Decisions Judgement: Good Diagnostics Vital Signs (24Hr): Vital Signs - 24 hr 01/12/25 20:00 01/13/25 08:00 Temperature 97.5 F 98.2 F Pulse Rate 120 H 81 Respiratory Rate 18 Blood Pressure 129/82 132/87 Pulse Oximetry 97 98 Oxygen Delivery Method Room Air Room Air BMI result Body Mass Index 31.6 Labs 01/02/25 23:42 01/02/25 23:42 Labs: Laboratory Results - last 48 hr 01/13/25 07:29 [place] 1.06 Imaging Radiology Impressions: ITS Impressions Head CT 01/09/25 10:32 IMPRESSION: No acute intracranial abnormality. Electronically signed by: Jesus Nails MD 01/09/2025 11:56 AM EDT RP KUB X-Ray 01/11/25 11:35 IMPRESSION: No intestinal obstruction pattern. Probable nephrolithiasis, left kidney. Scoliosis and multilevel thoracolumbar spondylosis. Electronically signed by: Karl Johns MD 01/11/2025 11:59 AM EDT RP Medications Medications Current Medications Acetaminophen (Acetaminophen 325 Mg Tablet) 650 mg PO Q6H PRN PRN Reason: Headache/Pain, Scale 1-10 Last Admin: 01/03/25 16:14 Dose: 650 mg Al Hydroxide/Mg Hydroxide (Magnesium Hydrox/Alum Hydrox 30 Ml Oral.Susp) 30 ml PO Q6H PRN PRN Reason: Heartburn/Nausea Bisacodyl (Bisacodyl 5 Mg Tablet.) 10 mg PO BEDTIME PRN PRN Reason: Constipation Chlorpromazine HCl (Chlorpromazine Hcl 25 Mg Tablet) 25 mg PO TID PRN PRN Reason: racing thoughts Last Admin: 01/12/25 20:34 Dose: 25 mg Docusate Sodium (Docusate Sodium 100 Mg Capsule) 100 mg PO BEDTIME SAM Last Admin: 01/12/25 20:30 Dose: 100 mg Ferrous Sulfate (Ferrous Sulfate 324 Mg Tablet.) 324 mg PO BID SAM Last Admin: 01/13/25 08:31 Dose: 324 mg Hydrocortisone (Hydrocortisone 1 % Cream 28.35 Gm Tube) 1 appl TOPICAL BID PRN; Protocol PRN Reason: Rash Hydroxyzine HCl (Hydroxyzine Hcl 25 Mg Tablet) 25 mg PO Q6H PRN PRN Reason: mild anxiety Last Admin: 01/11/25 21:38 Dose: 25 mg Lamotrigine (Lamotrigine 100 Mg Tablet) 200 mg PO DAILY SAM Last Admin: 01/13/25 08:31 Dose: 200 mg [place] Carbonate ([place] Carbonate Er 450 Mg Tablet.Er) 900 mg PO BEDTIME SAM Last Admin: 01/12/25 20:32 Dose: 900 mg Magnesium Hydroxide (Milk Of Magnesia 30 Ml Oral.Susp) 30 ml PO DAILY PRN PRN Reason: Constipation Last Admin: 01/09/25 08:41 Dose: 30 ml Olanzapine (Olanzapine 5 Mg Tablet) 5 mg PO Q4H PRN PRN Reason: agitation Last Admin: 01/11/25 15:08 Dose: 5 mg Olanzapine (Olanzapine 10 Mg Tablet) 30 mg PO BEDTIME SAM Last Admin: 01/12/25 20:33 Dose: 30 mg Pantoprazole Sodium (Pantoprazole Sodium 20 Mg Tablet.) 40 mg PO DAILY SAM Last Admin: 01/13/25 08:31 Dose: 40 mg Polyethylene Glycol (Polyethylene Glycol 3350 17 Gm Powd.Pack) 17 gm PO DAILY [facility] Last Admin: 01/13/25 08:32 Dose: Not Given Trazodone HCl (Trazodone Hcl 100 Mg Tablet) 200 mg PO BEDTIME [facility] Last Admin: 01/12/25 20:31 Dose: 200 mg Vitamin D (Cholecalciferol (Vitamin D3) 25 Mcg Tablet) 25 mcg PO DAILY [facility] Last Admin: 01/13/25 08:31 Dose: 25 mcg Allergies Allergies Allergy/AdvReac Type Severity Reaction Status Date / Time Penicillins Allergy Mild HIVES Verified 01/02/25 23:33 naproxen (NAPROXEN) Allergy Unknown BLEEDING Verified 01/02/25 23:33 penicillin V Allergy Unknown Hives Verified 01/02/25 23:33 Assessment & Plan Assessment & Plan (1) Suicidal ideation: Status: Acute Code(s): R45.851 - Suicidal ideations (2) Bipolar disorder: Status: Acute Code(s): F31.9 - Bipolar disorder, unspecified Plan HPI: Chief complaint: I ran to kitchen to grab the knife to hurt myself Patient Patient is 44-year-old female dropped off by her boyfriend for further evaluation of depression and SI. Patient was trying to reach to the kitchen to kill herself with a knife. No hearing voices, no visual hallucination. Patient is going through financial problem can not afford paying her apartment rent. Patient reports increased stress due to housing issue and possibility to be evicted from the present apartment. She was stressed out and do not know what to do so she ran into the kitchen to grab the knife to hurt herself with a plan to kill her. History of numerous inpatient level of care admissions, last admitted was in November 2024 at [facility], . No history of substance use, no PHP. At baseline she is having mood swing, anxious and depression. However possibility of being evicted from her current apartment make symptoms worse. Increased depression and anxiety, increased suicidal thoughts. Currently continued to endorse passive SI I feel like I should be . High hyper focused on housing. States she is not ready to go home yet as my mental health is not stable . Feeling pressure from her fiance' and her dad to mccray her to go home to help them packing which she is not able to handle at this time. Denies HI/SIB/AVH. Mood is labile, test for time. Formulation/clinical reasoning: Increased stress, anxiety and depression, increased suicidal thoughts with current passive SI. Labile mood. Poor concentration, frustrated easily. Not able to continue working as part-time. Quit her job last week due to stress. Prior to be brought to the emergency room she was trying to get a knife in the kitchen to cut herself to kill her purposely. She can be impulsive. Carrying bipolar disorder, PTSD. Given above information, patient could not be safe in less restrictive environment. We will make medication change to address symptoms of depression anxiety. We will continue to monitor for safety and plan to discharge when patient is more stable. Hospital course: 01/03/27: Continue with home medication; Lamictal 200 mg daily for bipolar. Olanzapine 20 mg at bedtime for mood/psychosis. Trazodone 200 mg at bedtime for insomnia. Order some labs work per protocol. U tox negative. BAL negative. HCG was negative. UA negative. Other labs work unremarkable 01/05: Tolerating buproprion. Mirtazapine 7.5 mg HS to assist with sleep (trial) 01/06/2025: Tolerating Remeron which was just started for sleep, anxiety and depression. Also noted olanzapine and trazodone and bupropion 01/07: no changes 01/08: no changes 01/10: Tolerating [place]. Will consider increase 01/11 Considering options for laxatives and bowel maintenance. Will continue to discuss. Dulcolax ordered x 1. Pt will decide if she will trial. 01/12: [place] level 01/13. Continue tx. 01/13: Li level 1.06 Decrease [place] to 450 mg HS Change laxatives to prn Plan Patient on 15 minute checks for safety. Monitor for passive SI. Admitted to M5. CV. Work with treatment team to do collateral. Treatment team to reach out to outpatient therapist and PCP to reschedule appointments. Per patient: Appointment with therapist is in January 09, and PCP appointments is on January 05. Patient signed a consent to release information for beto Marquez-further number is [phone] the [phone] Patient was medically clear at [facility] ED prior to be admitted to . Reason for continued inpatient stay Substantial Risk for: rapid decompensation Time Spent With Patient Time: Total time managing care of this patient today ____ minutes.
[2025-01-13 19:51] VITALS: BP 132/76; PULSE 105; RESP 22; TEMP 36.6; O2SAT 97
[2025-01-14 07:53] VITALS: BP 137/83; PULSE 126; RESP 18; TEMP 37.1; O2SAT 96
[2025-01-14] MEDS: Ferrous Sulfate 324 MG TABLET.DR PO ×2 (08:03→22:06)
--- NOTE | 2025-01-14 09:33 | HO.PSYCHPN ---
Subjective Subjective Date of Service: 01/14/25 Reason For Visit: Bipolar D/O Interim History: met with patient; discussed with team; reviewed chart Staff reports that overnight, got emotionally dysregulated, and was telling staff that she can't remember why she was incarcerated.. Today she came to advertising writer and said she wanted to let advertising writer know that she was not really ever in a gang; she just said she was but is not sure why she said so. She feels terrible about having said so. She seemed to say it had something to do with her being incarcerated in the past. Overall she is feeling a little better -reviewed with patient [place] level WNL at 1.06 Mental Status Exam Mental Status Exam Patient Appearance: Appropriate Patient Orientation: Person, Place, Time and Situation Level of Consciousness: Appropriate and Alert Patient Behavior: Talkative and Good Eye Contact Mood Description: Anxious (though also a little better ) and Apprehensive Affect Description: Apathetic and Apprehensive Patient Cognition Impaired: No Ability to Follow Directions: Good Speech Pattern: Spontaneous Speech Memory Description: Intact Hallucinations: None Delusions: Not Present Thought Process: Distracted and Goal Oriented Thought Content: positive for [place], positive for Perseveration (on boyfriend; other things), positive for Suicidal Ideation (none) and positive for Homicidal Ideation (none) Depressive Symptoms: Diff. Making Decisions Judgement and Insight: impaired but improved Diagnostics Vital Signs (24Hr): Vital Signs - 24 hr 01/13/25 19:51 01/14/25 07:53 Temperature 97.8 F 98.7 F Pulse Rate 105 H 126 H Respiratory Rate 22 H 18 Blood Pressure 132/76 137/83 Pulse Oximetry 97 96 Oxygen Delivery Method Room Air Room Air BMI result Body Mass Index 31.6 Labs 01/02/25 23:42 01/02/25 23:42 Labs: Laboratory Results - last 48 hr 01/13/25 07:29 [place] 1.06 Imaging Radiology Impressions: ITS Impressions Head CT 01/09/25 10:32 IMPRESSION: No acute intracranial abnormality. Electronically signed by: Jesus Nails MD 01/09/2025 11:56 AM EDT RP KUB X-Ray 01/11/25 11:35 IMPRESSION: No intestinal obstruction pattern. Probable nephrolithiasis, left kidney. Scoliosis and multilevel thoracolumbar spondylosis. Electronically signed by: Karl Johns MD 01/11/2025 11:59 AM EDT RP Medications Medications Current Medications Acetaminophen (Acetaminophen 325 Mg Tablet) 650 mg PO Q6H PRN PRN Reason: Headache/Pain, Scale 1-10 Last Admin: 01/03/25 16:14 Dose: 650 mg Al Hydroxide/Mg Hydroxide (Magnesium Hydrox/Alum Hydrox 30 Ml Oral.Susp) 30 ml PO Q6H PRN PRN Reason: Heartburn/Nausea Bisacodyl (Bisacodyl 5 Mg Tablet.) 10 mg PO BEDTIME PRN PRN Reason: Constipation Chlorpromazine HCl (Chlorpromazine Hcl 25 Mg Tablet) 25 mg PO TID PRN PRN Reason: racing thoughts Last Admin: 01/14/25 07:02 Dose: 25 mg Docusate Sodium (Docusate Sodium 100 Mg Capsule) 100 mg PO BEDTIME PRN PRN Reason: constipation Ferrous Sulfate (Ferrous Sulfate 324 Mg Tablet.) 324 mg PO BID SAM Last Admin: 01/14/25 08:03 Dose: 324 mg Hydrocortisone (Hydrocortisone 1 % Cream 28.35 Gm Tube) 1 appl TOPICAL BID PRN; Protocol PRN Reason: Rash Hydroxyzine HCl (Hydroxyzine Hcl 25 Mg Tablet) 25 mg PO Q6H PRN PRN Reason: mild anxiety Last Admin: 01/14/25 00:54 Dose: 25 mg Lamotrigine (Lamotrigine 100 Mg Tablet) 200 mg PO DAILY SAM Last Admin: 01/14/25 08:03 Dose: 200 mg [place] Carbonate ([place] Carbonate Er 450 Mg Tablet.Er) 450 mg PO BEDTIME SAM Last Admin: 01/13/25 21:33 Dose: 450 mg Magnesium Hydroxide (Milk Of Magnesia 30 Ml Oral.Susp) 30 ml PO DAILY PRN PRN Reason: Constipation Last Admin: 01/09/25 08:41 Dose: 30 ml Olanzapine (Olanzapine 5 Mg Tablet) 5 mg PO Q4H PRN PRN Reason: agitation Last Admin: 01/14/25 00:56 Dose: 5 mg Olanzapine (Olanzapine 10 Mg Tablet) 30 mg PO BEDTIME SAM Last Admin: 01/13/25 21:34 Dose: 30 mg Pantoprazole Sodium (Pantoprazole Sodium 20 Mg Tablet.) 40 mg PO DAILY SAM Last Admin: 01/14/25 08:04 Dose: 40 mg Polyethylene Glycol (Polyethylene Glycol 3350 17 Gm Powd.Pack) 17 gm PO DAILY PRN PRN Reason: constipation Trazodone HCl (Trazodone Hcl 100 Mg Tablet) 200 mg PO BEDTIME [facility] Last Admin: 01/13/25 21:33 Dose: 200 mg Vitamin D (Cholecalciferol (Vitamin D3) 25 Mcg Tablet) 25 mcg PO DAILY [facility] Last Admin: 01/14/25 08:03 Dose: 25 mcg Allergies Allergies Allergy/AdvReac Type Severity Reaction Status Date / Time Penicillins Allergy Mild HIVES Verified 01/02/25 23:33 naproxen (NAPROXEN) Allergy Unknown BLEEDING Verified 01/02/25 23:33 penicillin V Allergy Unknown Hives Verified 01/02/25 23:33 Assessment & Plan Assessment & Plan (1) Suicidal ideation: Status: Acute Code(s): R45.851 - Suicidal ideations (2) Bipolar disorder: Status: Acute Code(s): F31.9 - Bipolar disorder, unspecified Plan HPI: Chief complaint: I ran to kitchen to grab the knife to hurt myself Patient Patient is 44-year-old female dropped off by her boyfriend for further evaluation of depression and SI. Patient was trying to reach to the kitchen to kill herself with a knife. No hearing voices, no visual hallucination. Patient is going through financial problem can not afford paying her apartment rent. Patient reports increased stress due to housing issue and possibility to be evicted from the present apartment. She was stressed out and do not know what to do so she ran into the kitchen to grab the knife to hurt herself with a plan to kill her. History of numerous inpatient level of care admissions, last admitted was in November 2024 at [facility], . No history of substance use, no PHP. At baseline she is having mood swing, anxious and depression. However possibility of being evicted from her current apartment make symptoms worse. Increased depression and anxiety, increased suicidal thoughts. Currently continued to endorse passive SI I feel like I should be . High hyper focused on housing. States she is not ready to go home yet as my mental health is not stable . Feeling pressure from her fiance' and her dad to mccray her to go home to help them packing which she is not able to handle at this time. Denies HI/SIB/AVH. Mood is labile, test for time. Formulation/clinical reasoning: Increased stress, anxiety and depression, increased suicidal thoughts with current passive SI. Labile mood. Poor concentration, frustrated easily. Not able to continue working as part-time. Quit her job last week due to stress. Prior to be brought to the emergency room she was trying to get a knife in the kitchen to cut herself to kill her purposely. She can be impulsive. Carrying bipolar disorder, PTSD. Given above information, patient could not be safe in less restrictive environment. We will make medication change to address symptoms of depression anxiety. We will continue to monitor for safety and plan to discharge when patient is more stable. Hospital course: 01/03/27: Continue with home medication; Lamictal 200 mg daily for bipolar. Olanzapine 20 mg at bedtime for mood/psychosis. Trazodone 200 mg at bedtime for insomnia. Order some labs work per protocol. U tox negative. BAL negative. HCG was negative. UA negative. Other labs work unremarkable 01/05: Tolerating buproprion. Mirtazapine 7.5 mg HS to assist with sleep (trial) 01/06/2025: Tolerating Remeron which was just started for sleep, anxiety and depression. Also noted olanzapine and trazodone and bupropion 01/07: no changes 01/08: no changes 01/10: Tolerating [place]. Will consider increase 01/11 Considering options for laxatives and bowel maintenance. Will continue to discuss. Dulcolax ordered x 1. Pt will decide if she will trial. 01/12: [place] level 01/13. Continue tx. 01/13: Li level 1.06 Decrease [place] to 450 mg HS Change laxatives to prn 01/14 Staff reports that overnight, got emotionally dysregulated, and was telling staff that she can't remember why she was incarcerated.. Today she came to advertising writer and said she wanted to let advertising writer know that she was not really ever in a gang; she just said she was but is not sure why she said so. She feels terrible about having said so. She seemed to say it had something to do with her being incarcerated in the past. Overall she is feeling a little better -reviewed with patient [place] level WNL at 1.06 Plan Patient on 15 minute checks for safety. Monitor for passive SI. Admitted to M5. CV. Work with treatment team to do collateral. Treatment team to reach out to outpatient therapist and PCP to reschedule appointments. Per patient: Appointment with therapist is in January 09, and PCP appointments is on January 05. Patient signed a consent to release information for that and fiancee. Marquez-further number is [phone] the [phone] Patient was medically clear at [facility] ED prior to be admitted to . Patient educated on: diagnosis and medication risk/benefits Informed Consent: understands and further education needed Reason for continued inpatient stay Substantial Risk for: rapid decompensation Time Spent With Patient Time: Total time managing care of this patient today ____ minutes.
[2025-01-14 20:00] VITALS: PULSE 115; RESP 18; TEMP 36.4; O2SAT 97
[2025-01-15 08:00] VITALS: BP 131/83; PULSE 91; RESP 18; TEMP 36.4; O2SAT 96
[2025-01-15] MEDS: Ferrous Sulfate 324 MG TABLET.DR PO ×2 (09:56→20:29)
--- NOTE | 2025-01-15 11:14 | HO.PSYCHPN ---
Subjective Subjective Date of Service: 01/15/25 Reason For Visit: Bipolar D/O Interim History: Met with patient; discussed with team Earlier this morning pt seems to be more in emotional distress over this weekend. Nursing staff wonders if patient got Dysregulated after she learned she'll be discharged next week... Patient: touching staff over and over (seems childlike, not provocative and apologetic when redirected) sleeping well, but keeps asking nurse if she slept well last night... are you sure i slept? over and over are you sure i'm allowed to get naked in my room? will i get in trouble if i put deodorant in my room -getting labs anyway but seems more emotional regression than organic etiology Later on patient seemed to be doing better, getting back to more regular interactions; bond underwriter asked and patient said she knows she was acting confused and says I get like that sometimes... But says she is now feeling better Mental Status Exam Mental Status Exam Patient Appearance: Appropriate Patient Orientation: Person, Place, Time and Situation Level of Consciousness: Appropriate and Alert Patient Behavior: Talkative and Good Eye Contact Mood Description: Apprehensive Affect Description: Apathetic and Apprehensive Patient Cognition Impaired: No Ability to Follow Directions: Good Speech Pattern: Spontaneous Speech Memory Description: Intact Hallucinations: None Delusions: Not Present Thought Process: Distracted and Goal Oriented Thought Content: positive for [place], positive for Perseveration (on boyfriend; other things), positive for Suicidal Ideation (none) and positive for Homicidal Ideation (none) Depressive Symptoms: Diff. Making Decisions Judgement and Insight: impaired but improved Diagnostics Vital Signs (24Hr): Vital Signs - 24 hr 01/14/25 20:00 01/15/25 08:00 Temperature 97.6 F 97.5 F Pulse Rate 115 H 91 Respiratory Rate 18 18 Blood Pressure 131/83 Pulse Oximetry 97 96 Oxygen Delivery Method Room Air Room Air BMI result Body Mass Index 31.6 Labs 01/15/25 11:42 01/15/25 11:42 Imaging Radiology Impressions: ITS Impressions Head CT 01/09/25 10:32 IMPRESSION: No acute intracranial abnormality. Electronically signed by: Jesus Nails MD 01/09/2025 11:56 AM EDT KUB X-Ray 01/11/25 11:35 IMPRESSION: No intestinal obstruction pattern. Probable nephrolithiasis, left kidney. Scoliosis and multilevel thoracolumbar spondylosis. Electronically signed by: Karl Jhons MD 01/11/2025 11:59 AM EDT Medications Medications Current Medications Acetaminophen (Acetaminophen 325 Mg Tablet) 650 mg PO Q6H PRN PRN Reason: Headache/Pain, Scale 1-10 Last Admin: 01/03/25 16:14 Dose: 650 mg Al Hydroxide/Mg Hydroxide (Magnesium Hydrox/Alum Hydrox 30 Ml Oral.Susp) 30 ml PO Q6H PRN PRN Reason: Heartburn/Nausea Bisacodyl (Bisacodyl 5 Mg Tablet.Dr) 10 mg PO BEDTIME PRN PRN Reason: Constipation Chlorpromazine HCl (Chlorpromazine Hcl 25 Mg Tablet) 25 mg PO TID PRN PRN Reason: racing thoughts Last Admin: 01/14/25 22:06 Dose: 25 mg Docusate Sodium (Docusate Sodium 100 Mg Capsule) 100 mg PO BEDTIME PRN PRN Reason: constipation Ferrous Sulfate (Ferrous Sulfate 324 Mg Tablet.Dr) 324 mg PO BID SAM Last Admin: 01/15/25 09:56 Dose: 324 mg Hydrocortisone (Hydrocortisone 1 % Cream 28.35 Gm Tube) 1 appl TOPICAL BID PRN; Protocol PRN Reason: Rash Hydroxyzine HCl (Hydroxyzine Hcl 25 Mg Tablet) 25 mg PO Q6H PRN PRN Reason: mild anxiety Last Admin: 01/14/25 00:54 Dose: 25 mg Lamotrigine (Lamotrigine 100 Mg Tablet) 200 mg PO DAILY SAM Last Admin: 01/15/25 09:56 Dose: 200 mg Mooar Carbonate (Mooar Carbonate Er 450 Mg Tablet.Er) 450 mg PO BEDTIME SAM Last Admin: 01/14/25 22:06 Dose: 450 mg Magnesium Hydroxide (Milk Of Magnesia 30 Ml Oral.Susp) 30 ml PO DAILY PRN PRN Reason: Constipation Last Admin: 01/09/25 08:41 Dose: 30 ml Olanzapine (Olanzapine 5 Mg Tablet) 5 mg PO Q4H PRN PRN Reason: agitation Last Admin: 01/14/25 00:56 Dose: 5 mg Olanzapine (Olanzapine 10 Mg Tablet) 30 mg PO BEDTIME SAM Last Admin: 01/14/25 22:05 Dose: 30 mg Pantoprazole Sodium (Pantoprazole Sodium 20 Mg Tablet.Dr) 40 mg PO DAILY [facility] Last Admin: 01/15/25 09:56 Dose: 40 mg Polyethylene Glycol (Polyethylene Glycol 3350 17 Gm Powd.Pack) 17 gm PO DAILY PRN PRN Reason: constipation Trazodone HCl (Trazodone Hcl 100 Mg Tablet) 200 mg PO BEDTIME [facility] Last Admin: 01/14/25 22:06 Dose: 200 mg Vitamin D (Cholecalciferol (Vitamin D3) 25 Mcg Tablet) 25 mcg PO DAILY [facility] Last Admin: 01/15/25 09:56 Dose: 25 mcg Allergies Allergies Allergy/AdvReac Type Severity Reaction Status Date / Time Penicillins Allergy Mild HIVES Verified 01/02/25 23:33 naproxen (NAPROXEN) Allergy Unknown BLEEDING Verified 01/02/25 23:33 penicillin V Allergy Unknown Hives Verified 01/02/25 23:33 Assessment & Plan Assessment & Plan (1) Suicidal ideation: Status: Acute Code(s): R45.851 - Suicidal ideations (2) Bipolar disorder: Status: Acute Code(s): F31.9 - Bipolar disorder, unspecified Plan HPI: Chief complaint: I ran to kitchen to grab the knife to hurt myself Patient Patient is 44-year-old female dropped off by her boyfriend for further evaluation of depression and SI. Patient was trying to reach to the kitchen to kill herself with a knife. No hearing voices, no visual hallucination. Patient is going through financial problem can not afford paying her apartment rent. Patient reports increased stress due to housing issue and possibility to be evicted from the present apartment. She was stressed out and do not know what to do so she ran into the kitchen to grab the knife to hurt herself with a plan to kill her. History of numerous inpatient level of care admissions, [place] [facility] [place] . No history of substance use, no PHP. At baseline she is having mood swing, anxious and depression. However possibility of being evicted from her current apartment make symptoms worse. Increased depression and anxiety, increased suicidal thoughts. Currently continued to endorse passive SI I feel like I should be . High hyper focused on housing. States she is not ready to go home yet as my mental health is not stable . Feeling pressure from her fiance' and her dad to mccray her to go home to help them packing which she is not able to handle at this time. Denies HI/SIB/AVH. Mood is labile, test for time. Formulation/clinical reasoning: Increased stress, anxiety and depression, increased suicidal thoughts with current passive SI. Labile mood. Poor concentration, frustrated easily. Not able to continue working as part-time. Quit her job last week due to stress. Prior to be brought to the emergency room she was trying to get a knife in the kitchen to cut herself to kill her purposely. She can be impulsive. Carrying bipolar disorder, PTSD. Given above information, patient could not be safe in less restrictive environment. We will make medication change to address symptoms of depression anxiety. We will continue to monitor for safety and plan to discharge when patient is more stable. Hospital course: 01/03/27: Continue with home medication; Lamictal 200 mg daily for bipolar. Olanzapine 20 mg at bedtime for mood/psychosis. Trazodone 200 mg at bedtime for insomnia. Order some labs work per protocol. U tox negative. BAL negative. HCG was negative. UA negative. Other labs work unremarkable 01/05: Tolerating buproprion. Mirtazapine 7.5 mg HS to assist with sleep (trial) 01/06/2025: Tolerating Remeron which was just started for sleep, anxiety and depression. Also noted olanzapine and trazodone and bupropion 01/07: no changes 01/08: no changes 01/10: Tolerating Mooar. Will consider increase 01/11 Considering options for laxatives and bowel maintenance. Will continue to discuss. Dulcolax ordered x 1. Pt will decide if she will trial. 01/12: Mooar level 01/13. Continue tx. 01/13: Li level 1.06 Decrease Mooar to 450 mg HS Change laxatives to prn 01/14 Staff reports that overnight, got emotionally dysregulated, and was telling staff that she can't remember why she was incarcerated.. Today she came to bond underwriter and said she wanted to let bond underwriter know that she was not really ever in a gang; she just said she was but is not sure why she said so. She feels terrible about having said so. She seemed to say it had something to do with her being incarcerated in the past. Overall she is feeling a little better -reviewed with patient Litihium level WNL at 1.06 01/15 Earlier this morning pt seems to be more in emotional distress over this weekend. Nursing staff wonders if patient got Dysregulated after she learned she'll be discharged next week... Patient: touching staff over and over (seems childlike, not provocative and apologetic when redirected) sleeping well, but keeps asking nurse if she slept well last night... are you sure i slept? over and over are you sure i'm allowed to get naked in my room? will i get in trouble if i put deodorant in my room -getting labs anyway but seems more emotional regression than organic etiology Later on patient seemed to be doing better, getting back to more regular interactions; bond underwriter asked and patient said she knows she was acting confused and says I get like that sometimes... But says she is now feeling better Plan Patient on 15 minute checks for safety. Monitor for passive SI. Admitted to . CV. Work with treatment team to do collateral. Treatment team to reach out to outpatient therapist and PCP to reschedule appointments. Per patient: Appointment with therapist is in January 09, and PCP appointments is on January 05. Patient signed a consent to release information for zbigniew and fiancee. Marquez-further number is [phone] the [phone] Patient was medically clear [place] [facility] to be admitted to . Patient educated on: diagnosis and medication risk/benefits Informed Consent: understands and further education needed Reason for continued inpatient stay Substantial Risk for: rapid decompensation Time Spent With Patient Time: Total time managing care of this patient today ____ minutes.
[2025-01-15 11:48] LABS: MANUAL DIFF FLAG NO
[2025-01-15 11:50] LABS: Hematocrit 45.0 % (37.0-47.0); Hemoglobin 15.8 g/dl (12.0-16.0); Imm Gran Abs Auto 0.03 X10*3/uL (0.00-0.03); Imm Gran Pct Auto 0.3 % (0.0-0.4); Lymphocytes Absolute Auto 1.6 X10*3/uL (1.2-4.9); Mean Corpuscular HGB Conc 35.1 g/dl (31.0-35.0); Mean Corpuscular Hemoglobin 29.4 pg (27.0-33.0); Mean Corpuscular Volume 83.6 fL (80.0-98.0); NRBC Abs Auto 0.000 X10*3/uL (0.0-0.012); NRBC Pct Auto 0.0 /100WBC (0.0-0.2); Platelet Count 325 X10*3/uL (160-400); Red Blood Count 5.38 X10*6/uL (4.20-5.50); White Blood Count 10.5 X10*3/uL (4.8-10.8)
[2025-01-15 11:56] LABS: Ammonia 21 umol/L (13-55)
[2025-01-15 12:05] LABS: Alanine Aminotransferase 20 U/L (0-31); Albumin Level 4.8 g/dL (3.5-5.0); Alkaline Phosphatase 86 U/L (39-117); Anion Gap 12 (12-20); Aspartate Amino Transferase 21 U/L (5-31); Blood Urea Nitrogen 5 mg/dL (9-16); Calcium 9.8 mg/dL (8.4-10.2); Carbon Dioxide 27 mmol/L (22-29); Chloride 106 mmol/L (96-108); Creatinine Clr Calc Pharmacy 108.1; Estimated Glomerular Filt Rate > 60; Potassium 4.3 mmol/L (3.3-5.1); Sodium 141 mmol/L (135-145); Total Protein 7.1 g/dL (6.5-8.0)
[2025-01-15 19:41] VITALS: BP 149/84; PULSE 100; TEMP 36.6; O2SAT 96
[2025-01-16 07:55] VITALS: BP 133/73; PULSE 94; RESP 16; TEMP 36.9; O2SAT 96
--- NOTE | 2025-01-16 09:56 | HO.PSYCHPN ---
Subjective Subjective Date of Service: 01/16/25 Reason For Visit: Bipolar D/O Subjective Notes: Conditional Voluntary Healthcare Proxy: No Guardianship: No Medical Problems Affecting Mental Status: No Interim History: My father says you are overdosing me and I will never drive again. Review of meds, dosages. The Trazodone is too high Discussed that this was the dose she was admitted on. Review changes in Olanzapine and initiation of [place] to augment Lamictal since admission. Discussed discontinuation of Trazodone as pt finds it ineffective and trial of Mirtazapine 15 mg which she agrees with. [facility] will meet with pt on 01/19. We will plan DC for 01/20 Medication Compliance: Yes Side effects from medications: No (denies feeling overmedicated or having adverse effects) Attending Groups: Yes Review of Systems Acute medical concerns: No Medical Review of Systems: unchanged Mental Status Exam Mental Status Exam Patient Appearance: Appropriate Patient Orientation: Person, Place, Time and Situation Level of Consciousness: Alert Patient Behavior: Talkative and Good Eye Contact Mood Description: Apprehensive Affect Description: Apprehensive Patient Cognition Impaired: No Ability to Follow Directions: Good Speech Pattern: Spontaneous Speech Memory Description: Intact Hallucinations: None Delusions: Not Present Thought Process: Rumination Thought Content: positive for Obsessional Thoughts, positive for Perseveration and positive for Suicidal Ideation (denies) Depressive Symptoms: Thoughts of /Suicide (denies) Judgement: Good Diagnostics Vital Signs (24Hr): Vital Signs - 24 hr 01/15/25 19:41 01/16/25 07:55 Temperature 97.9 F 98.4 F Pulse Rate 100 94 Respiratory Rate 16 Blood Pressure 149/84 H 133/73 Pulse Oximetry 96 96 Oxygen Delivery Method Room Air BMI result Body Mass Index 31.6 Labs 01/15/25 11:42 01/15/25 11:42 Labs: Laboratory Results - last 48 hr 01/15/25 11:42 WBC 10.5 RBC 5.38 Hgb 15.8 Hct 45.0 MCV 83.6 MCH 29.4 MCHC 35.1 H RDW 11.9 Plt Count 325 MPV 8.8 L Immature Gran % (Auto) 0.3 Neut % (Auto) 76.0 H Lymph % (Auto) 14.9 L [place] % (Auto) 7.2 Eos % (Auto) 1.1 Baso % (Auto) 0.5 Lymph # (Auto) 1.6 [place] # (Auto) 0.8 Eos # (Auto) 0.1 Baso # (Auto) 0.1 Abs Immat Gran (auto) 0.03 Absolute Neuts (auto) 8.0 Absolute Nucleated RBC 0.000 Nucleated RBC % (auto) 0.0 Sodium 141 Potassium 4.3 D Chloride 106 Carbon Dioxide 27 Anion Gap 12 BUN 5 L Creatinine 0.84 Estim Creat Clear Calc 108.1 Estimated GFR > 60 Random Glucose 107 Calcium 9.8 Total Bilirubin 0.7 AST 21 ALT 20 Alkaline Phosphatase 86 Ammonia 21 Total Protein 7.1 Albumin 4.8 Imaging Radiology Impressions: ITS Impressions Head CT 01/09/25 10:32 IMPRESSION: No acute intracranial abnormality. Electronically signed by: Jesus Nails MD 01/09/2025 11:56 AM EDT RP KUB X-Ray 01/11/25 11:35 IMPRESSION: No intestinal obstruction pattern. Probable nephrolithiasis, left kidney. Scoliosis and multilevel thoracolumbar spondylosis. Electronically signed by: Karl Johns MD 01/11/2025 11:59 AM EDT RP Medications Medications Current Medications Acetaminophen (Acetaminophen 325 Mg Tablet) 650 mg PO Q6H PRN PRN Reason: Headache/Pain, Scale 1-10 Last Admin: 01/03/25 16:14 Dose: 650 mg Al Hydroxide/Mg Hydroxide (Magnesium Hydrox/Alum Hydrox 30 Ml Oral.Susp) 30 ml PO Q6H PRN PRN Reason: Heartburn/Nausea Bisacodyl (Bisacodyl 5 Mg Tablet.) 10 mg PO BEDTIME PRN PRN Reason: Constipation Chlorpromazine HCl (Chlorpromazine Hcl 25 Mg Tablet) 25 mg PO TID PRN PRN Reason: racing thoughts Last Admin: 01/14/25 22:06 Dose: 25 mg Docusate Sodium (Docusate Sodium 100 Mg Capsule) 100 mg PO BEDTIME PRN PRN Reason: constipation Ferrous Sulfate (Ferrous Sulfate 324 Mg Tablet.) 324 mg PO BID SAM Last Admin: 01/16/25 09:16 Dose: Not Given Hydrocortisone (Hydrocortisone 1 % Cream 28.35 Gm Tube) 1 appl TOPICAL BID PRN; Protocol PRN Reason: Rash Hydroxyzine HCl (Hydroxyzine Hcl 25 Mg Tablet) 25 mg PO Q6H PRN PRN Reason: mild anxiety Last Admin: 01/16/25 09:16 Dose: 25 mg Lamotrigine (Lamotrigine 100 Mg Tablet) 200 mg PO DAILY [facility] Last Admin: 01/16/25 09:13 Dose: 200 mg [place] Carbonate ([place] Carbonate Er 450 Mg Tablet.Er) 450 mg PO BEDTIME SAM Last Admin: 01/15/25 20:29 Dose: 450 mg Magnesium Hydroxide (Milk Of Magnesia 30 Ml Oral.Susp) 30 ml PO DAILY PRN PRN Reason: Constipation Last Admin: 01/09/25 08:41 Dose: 30 ml Olanzapine (Olanzapine 5 Mg Tablet) 5 mg PO Q4H PRN PRN Reason: agitation Last Admin: 01/14/25 00:56 Dose: 5 mg Olanzapine (Olanzapine 10 Mg Tablet) 30 mg PO BEDTIME SAM Last Admin: 01/15/25 20:28 Dose: 30 mg Pantoprazole Sodium (Pantoprazole Sodium 20 Mg Tablet.Dr) 40 mg PO DAILY [facility] Last Admin: 01/16/25 09:13 Dose: 40 mg Polyethylene Glycol (Polyethylene Glycol 3350 17 Gm Powd.Pack) 17 gm PO DAILY PRN PRN Reason: constipation Trazodone HCl (Trazodone Hcl 100 Mg Tablet) 200 mg PO BEDTIME [facility] Last Admin: 01/15/25 20:29 Dose: 200 mg Vitamin D (Cholecalciferol (Vitamin D3) 25 Mcg Tablet) 25 mcg PO DAILY [facility] Last Admin: 01/16/25 09:13 Dose: 25 mcg Allergies Allergies Allergy/AdvReac Type Severity Reaction Status Date / Time Penicillins Allergy Mild HIVES Verified 01/02/25 23:33 naproxen (NAPROXEN) Allergy Unknown BLEEDING Verified 01/02/25 23:33 penicillin V Allergy Unknown Hives Verified 01/02/25 23:33 Assessment & Plan Assessment & Plan (1) Suicidal ideation: Status: Acute Code(s): R45.851 - Suicidal ideations (2) Bipolar disorder: Status: Acute Code(s): F31.9 - Bipolar disorder, unspecified Plan HPI: Chief complaint: I ran to kitchen to grab the knife to hurt myself Patient Patient is 44-year-old female dropped off by her boyfriend for further evaluation of depression and SI. Patient was trying to reach to the kitchen to kill herself with a knife. No hearing voices, no visual hallucination. Patient is going through financial problem can not afford paying her apartment rent. Patient reports increased stress due to housing issue and possibility to be evicted from the present apartment. She was stressed out and do not know what to do so she ran into the kitchen to grab the knife to hurt herself with a plan to kill her. History of numerous inpatient level of care admissions, last admitted was in November 2024 at [facility] [place], . No history of substance use, no PHP. At baseline she is having mood swing, anxious and depression. However possibility of being evicted from her current apartment make symptoms worse. Increased depression and anxiety, increased suicidal thoughts. Currently continued to endorse passive SI I feel like I should be . High hyper focused on housing. States she is not ready to go home yet as my mental health is not stable . Feeling pressure from her fiance' and her dad to mccray her to go home to help them packing which she is not able to handle at this time. Denies HI/SIB/AVH. Mood is labile, test for time. Formulation/clinical reasoning: Increased stress, anxiety and depression, increased suicidal thoughts with current passive SI. Labile mood. Poor concentration, frustrated easily. Not able to continue working as part-time. Quit her job last week due to stress. Prior to be brought to the emergency room she was trying to get a knife in the kitchen to cut herself to kill her purposely. She can be impulsive. Carrying bipolar disorder, PTSD. Given above information, patient could not be safe in less restrictive environment. We will make medication change to address symptoms of depression anxiety. We will continue to monitor for safety and plan to discharge when patient is more stable. Hospital course: 01/03/27: Continue with home medication; Lamictal 200 mg daily for bipolar. Olanzapine 20 mg at bedtime for mood/psychosis. Trazodone 200 mg at bedtime for insomnia. Order some labs work per protocol. U tox negative. BAL negative. HCG was negative. UA negative. Other labs work unremarkable 01/05: Tolerating buproprion. Mirtazapine 7.5 mg HS to assist with sleep (trial) 01/06/2025: Tolerating Remeron which was just started for sleep, anxiety and depression. Also noted olanzapine and trazodone and bupropion 01/07: no changes 01/08: no changes 01/10: Tolerating [place]. Will consider increase 01/11 Considering options for laxatives and bowel maintenance. Will continue to discuss. Dulcolax ordered x 1. Pt will decide if she will trial. 01/12: [place] level 01/13. Continue tx. 01/13: Li level 1.06 Decrease [place] to 450 mg HS Change laxatives to prn 01/14 Staff reports that overnight, got emotionally dysregulated, and was telling staff that she can't remember why she was incarcerated.. Today she came to radio script writer and said she wanted to let radio script writer know that she was not really ever in a gang; she just said she was but is not sure why she said so. She feels terrible about having said so. She seemed to say it had something to do with her being incarcerated in the past. Overall she is feeling a little better -reviewed with patient Litihium level WNL at 1.06 01/15 Earlier this morning pt seems to be more in emotional distress over this weekend. Nursing staff wonders if patient got Dysregulated after she learned she'll be discharged next week... Patient: touching staff over and over (seems childlike, not provocative and apologetic when redirected) sleeping well, but keeps asking nurse if she slept well last night... are you sure i slept? over and over are you sure i'm allowed to get naked in my room? will i get in trouble if i put deodorant in my room -getting labs anyway but seems more emotional regression than organic etiology Later on patient seemed to be doing better, getting back to more regular interactions; radio script writer asked and patient said she knows she was acting confused and says I get like that sometimes... But says she is now feeling better 01/16: [facility] will meet with pt on 01/19. DC 01/20 DC Trazodone Mirtazapine 15 mg HS Plan Patient on 15 minute checks for safety. Monitor for passive SI. Admitted to . CV. Work with treatment team to do collateral. Treatment team to reach out to outpatient therapist and PCP to reschedule appointments. Per patient: Appointment with therapist is in January 09, and PCP appointments is on January 05. Patient signed a consent to release information for that and fiancee. Marquez-further number is [phone] Patient was medically clear at [facility] [place] prior to be admitted to . Reason for continued inpatient stay Substantial Risk for: rapid decompensation Time Spent With Patient Time: Total time managing care of this patient today ____ minutes.
[2025-01-16] MEDS: Milk of Magnesia 30 ML ORAL.SUSP PO (15:38)
[2025-01-16 19:34] VITALS: BP 127/71; PULSE 87; TEMP 36.6; O2SAT 99
[2025-01-17 07:53] VITALS: BP 123/68; PULSE 77; RESP 18; TEMP 36.8; O2SAT 99
--- NOTE | 2025-01-17 08:57 | P.PNPSI_ITS ---
Subjective Subjective Date of Service: 01/17/25 Reason For Visit: Bipolar D/O Subjective Notes: Conditional Voluntary Healthcare Proxy: No Guardianship: No Medical Problems Affecting Mental Status: No Interim History: Reports improved sleep. Tolerating change from Trazodone to Mirtazapine without adversity States she feels good today. Looking forward to discharge on 01/20. Discussed discontinuing iron supplements. Discussed what services [facility] may be able to help her with in the community. Medication Compliance: Yes Side effects from medications: No Attending Groups: Yes Review of Systems Acute medical concerns: No Review of Systems Review of Systems Denies Mental Status Exam Mental Status Exam Narrative: Overall, less anxious and apprehensive today. Patient Appearance: Appropriate Patient Orientation: Person, Place, Time and Situation Level of Consciousness: Alert Patient Behavior: Talkative and Good Eye Contact Mood Description: Apprehensive Affect Description: Apprehensive Patient Cognition Impaired: No Ability to Follow Directions: Good Speech Pattern: Spontaneous Speech Memory Description: Intact Hallucinations: None Delusions: Not Present Thought Process: Rumination Thought Content: positive for Obsessional Thoughts, positive for Perseveration and positive for Suicidal Ideation (denies) Depressive Symptoms: Thoughts of /Suicide (denies) Judgement: Good Diagnostics Vital Signs (24Hr): Vital Signs - 24 hr 01/16/25 19:34 01/17/25 07:53 Temperature 97.9 F 98.2 F Pulse Rate 87 77 Respiratory Rate 18 Blood Pressure 127/71 123/68 Pulse Oximetry 99 99 Oxygen Delivery Method Room Air Room Air BMI result Body Mass Index 31.6 Labs 01/15/25 11:42 01/15/25 11:42 Labs: Laboratory Results - last 48 hr 01/15/25 11:42 WBC 10.5 RBC 5.38 Hgb 15.8 Hct 45.0 MCV 83.6 MCH 29.4 MCHC 35.1 H RDW 11.9 Plt Count 325 MPV 8.8 L Immature Gran % (Auto) 0.3 Neut % (Auto) 76.0 H Lymph % (Auto) 14.9 L Taney % (Auto) 7.2 Eos % (Auto) 1.1 Baso % (Auto) 0.5 Lymph # (Auto) 1.6 Taney # (Auto) 0.8 Eos # (Auto) 0.1 Baso # (Auto) 0.1 Abs Immat Gran (auto) 0.03 Absolute Neuts (auto) 8.0 Absolute Nucleated RBC 0.000 Nucleated RBC % (auto) 0.0 Sodium 141 Potassium 4.3 D Chloride 106 Carbon Dioxide 27 Anion Gap 12 BUN 5 L Creatinine 0.84 Estim Creat Clear Calc 108.1 Estimated GFR > 60 Random Glucose 107 Calcium 9.8 Total Bilirubin 0.7 AST 21 ALT 20 Alkaline Phosphatase 86 Ammonia 21 Total Protein 7.1 Albumin 4.8 Imaging Radiology Impressions: ITS Impressions Head CT 01/09/25 10:32 IMPRESSION: No acute intracranial abnormality. Electronically signed by: Jesus Nails MD 01/09/2025 11:56 AM EDT RP KUB X-Ray 01/11/25 11:35 IMPRESSION: No intestinal obstruction pattern. Probable nephrolithiasis, left kidney. Scoliosis and multilevel thoracolumbar spondylosis. Electronically signed by: Karl Johns MD 01/11/2025 11:59 AM EDT RP Medications Medications Current Medications Acetaminophen (Acetaminophen 325 Mg Tablet) 650 mg PO Q6H PRN PRN Reason: Headache/Pain, Scale 1-10 Last Admin: 01/03/25 16:14 Dose: 650 mg Al Hydroxide/Mg Hydroxide (Magnesium Hydrox/Alum Hydrox 30 Ml Oral.Susp) 30 ml PO Q6H PRN PRN Reason: Heartburn/Nausea Bisacodyl (Bisacodyl 5 Mg Tablet.) 10 mg PO BEDTIME PRN PRN Reason: Constipation Last Admin: 01/16/25 20:01 Dose: 10 mg Chlorpromazine HCl (Chlorpromazine Hcl 25 Mg Tablet) 25 mg PO TID PRN PRN Reason: racing thoughts Last Admin: 01/14/25 22:06 Dose: 25 mg Docusate Sodium (Docusate Sodium 100 Mg Capsule) 100 mg PO BEDTIME PRN PRN Reason: constipation Ferrous Sulfate (Ferrous Sulfate 324 Mg Tablet.) 324 mg PO BID SAM Last Admin: 01/17/25 08:31 Dose: Not Given Hydrocortisone (Hydrocortisone 1 % Cream 28.35 Gm Tube) 1 appl TOPICAL BID PRN; Protocol PRN Reason: Rash Hydroxyzine HCl (Hydroxyzine Hcl 25 Mg Tablet) 25 mg PO Q6H PRN PRN Reason: mild anxiety Last Admin: 01/17/25 08:37 Dose: 25 mg Lamotrigine (Lamotrigine 100 Mg Tablet) 200 mg PO DAILY SAM Last Admin: 01/17/25 08:31 Dose: 200 mg [place] Carbonate ([place] Carbonate Er 450 Mg Tablet.Er) 450 mg PO BEDTIME SAM Last Admin: 01/16/25 20:02 Dose: 450 mg Magnesium Hydroxide (Milk Of Magnesia 30 Ml Oral.Susp) 30 ml PO DAILY PRN PRN Reason: Constipation Last Admin: 01/16/25 15:38 Dose: 30 ml Mirtazapine (Mirtazapine 15 Mg Tablet) 15 mg PO BEDTIME SAM Last Admin: 01/16/25 20:01 Dose: 15 mg Olanzapine (Olanzapine 5 Mg Tablet) 5 mg PO Q4H PRN PRN Reason: agitation Last Admin: 01/16/25 11:24 Dose: 5 mg Olanzapine (Olanzapine 10 Mg Tablet) 30 mg PO BEDTIME SAM Last Admin: 01/16/25 20:01 Dose: 30 mg Pantoprazole Sodium (Pantoprazole Sodium 20 Mg Tablet.Dr) 40 mg PO DAILY SAM Last Admin: 01/17/25 08:31 Dose: 40 mg Polyethylene Glycol (Polyethylene Glycol 3350 17 Gm Powd.Pack) 17 gm PO DAILY PRN PRN Reason: constipation Vitamin D (Cholecalciferol (Vitamin D3) 25 Mcg Tablet) 25 mcg PO DAILY [facility] Last Admin: 01/17/25 08:31 Dose: 25 mcg Allergies Allergies Allergy/AdvReac Type Severity Reaction Status Date / Time Penicillins Allergy Mild HIVES Verified 01/02/25 23:33 naproxen (NAPROXEN) Allergy Unknown BLEEDING Verified 01/02/25 23:33 penicillin V Allergy Unknown Hives Verified 01/02/25 23:33 Assessment & Plan Assessment & Plan (1) Suicidal ideation: Status: Acute Code(s): R45.851 - Suicidal ideations (2) Bipolar disorder: Status: Acute Code(s): F31.9 - Bipolar disorder, unspecified Plan HPI: Chief complaint: I ran to kitchen to grab the knife to hurt myself Patient Patient is 44-year-old female dropped off by her boyfriend for further evaluation of depression and SI. Patient was trying to reach to the kitchen to kill herself with a knife. No hearing voices, no visual hallucination. Patient is going through financial problem can not afford paying her apartment rent. Patient reports increased stress due to housing issue and possibility to be evicted from the present apartment. She was stressed out and do not know what to do so she ran into the kitchen to grab the knife to hurt herself with a plan to kill her. History of numerous inpatient level of care admissions, last admitted was in November 2024 at [facility] [place], . No history of substance use, no PHP. At baseline she is having mood swing, anxious and depression. However possibility of being evicted from her current apartment make symptoms worse. Increased depression and anxiety, increased suicidal thoughts. Currently continued to endorse passive SI I feel like I should be . High hyper focused on housing. States she is not ready to go home yet as my mental health is not stable . Feeling pressure from her fiance' and her dad to mccray her to go home to help them packing which she is not able to handle at this time. Denies HI/SIB/AVH. Mood is labile, test for time. Formulation/clinical reasoning: Increased stress, anxiety and depression, increased suicidal thoughts with current passive SI. Labile mood. Poor concentration, frustrated easily. Not able to continue working as part-time. Quit her job last week due to stress. Prior to be brought to the emergency room she was trying to get a knife in the kitchen to cut herself to kill her purposely. She can be impulsive. Carrying bipolar disorder, PTSD. Given above information, patient could not be safe in less restrictive environment. We will make medication change to address symptoms of depression anxiety. We will continue to monitor for safety and plan to discharge when patient is more stable. Hospital course: 01/03/27: Continue with home medication; Lamictal 200 mg daily for bipolar. Olanzapine 20 mg at bedtime for mood/psychosis. Trazodone 200 mg at bedtime for insomnia. Order some labs work per protocol. U tox negative. BAL negative. HCG was negative. UA negative. Other labs work unremarkable 01/05: Tolerating buproprion. Mirtazapine 7.5 mg HS to assist with sleep (trial) 01/06/2025: Tolerating Remeron which was just started for sleep, anxiety and depression. Also noted olanzapine and trazodone and bupropion 01/07: no changes 7/6: no changes 01/10: Tolerating [place]. Will consider increase 01/11 Considering options for laxatives and bowel maintenance. Will continue to discuss. Dulcolax ordered x 1. Pt will decide if she will trial. 01/12: [place] level 01/13. Continue tx. 01/13: Li level 1.06 Decrease [place] to 450 mg HS Change laxatives to prn 01/14 Staff reports that overnight, got emotionally dysregulated, and was telling staff that she can't remember why she was incarcerated.. Today she came to video games storywriter and said she wanted to let video games storywriter know that she was not really ever in a gang; she just said she was but is not sure why she said so. She feels terrible about having said so. She seemed to say it had something to do with her being incarcerated in the past. Overall she is feeling a little better -reviewed with patient [place] level WNL at 1.06 01/15 Earlier this morning pt seems to be more in emotional distress over this weekend. Nursing staff wonders if patient got Dysregulated after she learned she'll be discharged next week... Patient: touching staff over and over (seems childlike, not provocative and apologetic when redirected) sleeping well, but keeps asking nurse if she slept well last night... are you sure i slept? over and over are you sure i'm allowed to get naked in my room? will i get in trouble if i put deodorant in my room -getting labs anyway but seems more emotional regression than organic etiology Later on patient seemed to be doing better, getting back to more regular interactions; video games storywriter asked and patient said she knows she was acting confused and says I get like that sometimes... But says she is now feeling better 01/16: [facility] will meet with pt on 01/19. DC 01/20 DC Trazodone Mirtazapine 15 mg HS 01/17: Continue tx Plan Patient on 15 minute checks for safety. Monitor for passive SI. Admitted to . CV. Work with treatment team to do collateral. Treatment team to reach out to outpatient therapist and PCP to reschedule appointments. Per patient: Appointment with therapist is in January 09, and PCP appointments is on January 05. Patient signed a consent to release information for that and fiancee. Marquez- further number is [phone] Patient was medically clear at [facility] ED prior to be admitted to . Reason for continued inpatient stay Substantial Risk for: rapid decompensation Time Spent With Patient Time: Total time managing care of this patient today ____ minutes.
[2025-01-17 20:00] VITALS: BP 121/61; PULSE 78; TEMP 36.4; O2SAT 98
[2025-01-18 08:00] VITALS: BP 122/77; PULSE 82; RESP 18; TEMP 36.4; O2SAT 98
--- NOTE | 2025-01-18 10:31 | HO.PSYCHPN ---
Subjective Subjective Date of Service: 01/18/25 Reason For Visit: Bipolar D/O Subjective Notes: Conditional Voluntary Healthcare Proxy: No Guardianship: No Medical Problems Affecting Mental Status: No Interim History: I am feeling tired today. Participating in group, some anxiety about [facility] appt on 01/19 however hopeful about potential services she may participate in. Expressed gratitude to her father for allowing her and fiancee to live with him, I would be so anxious if I were to become homeless. At this time, pt will remain with Mirtazapine as she reports she is finding it effective. Medication Compliance: Yes Side effects from medications: No Attending Groups: Yes Review of Systems Acute medical concerns: No Review of Systems Review of Systems reports feeling tired today Mental Status Exam Mental Status Exam Narrative: Continues to be less anxious and apprehensive today. Patient Appearance: Appropriate Patient Orientation: Person, Place, Time and Situation Level of Consciousness: Alert Patient Behavior: Talkative and Good Eye Contact Mood Description: Apprehensive Affect Description: Apprehensive Patient Cognition Impaired: No Ability to Follow Directions: Good Speech Pattern: Spontaneous Speech Memory Description: Intact Hallucinations: None Delusions: Not Present Thought Process: Rumination Thought Content: positive for Obsessional Thoughts, positive for Perseveration and positive for Suicidal Ideation (denies) Depressive Symptoms: Thoughts of /Suicide (denies) Judgement: Good Diagnostics Vital Signs (24Hr): Vital Signs - 24 hr 01/17/25 20:00 01/18/25 08:00 Temperature 97.6 F 97.6 F Pulse Rate 78 82 Respiratory Rate 18 Blood Pressure 121/61 122/77 Pulse Oximetry 98 98 Oxygen Delivery Method Room Air Room Air BMI result Body Mass Index 31.6 Labs 01/15/25 11:42 01/15/25 11:42 Imaging Radiology Impressions: ITS Impressions Head CT 01/09/25 10:32 IMPRESSION: No acute intracranial abnormality. Electronically signed by: Jseus Nails MD 01/09/2025 11:56 AM EDT RP KUB X-Ray 01/11/25 11:35 IMPRESSION: No intestinal obstruction pattern. Probable nephrolithiasis, left kidney. Scoliosis and multilevel thoracolumbar spondylosis. Electronically signed by: Karl Johns MD 01/11/2025 11:59 AM EDT RP Medications Medications Current Medications Acetaminophen (Acetaminophen 325 Mg Tablet) 650 mg PO Q6H PRN PRN Reason: Headache/Pain, Scale 1-10 Last Admin: 01/03/25 16:14 Dose: 650 mg Al Hydroxide/Mg Hydroxide (Magnesium Hydrox/Alum Hydrox 30 Ml Oral.Susp) 30 ml PO Q6H PRN PRN Reason: Heartburn/Nausea Bisacodyl (Bisacodyl 5 Mg Tablet.Dr) 10 mg PO BEDTIME PRN PRN Reason: Constipation Last Admin: 01/16/25 20:01 Dose: 10 mg Chlorpromazine HCl (Chlorpromazine Hcl 25 Mg Tablet) 25 mg PO TID PRN PRN Reason: racing thoughts Last Admin: 01/14/25 22:06 Dose: 25 mg Docusate Sodium (Docusate Sodium 100 Mg Capsule) 100 mg PO BEDTIME PRN PRN Reason: constipation Hydrocortisone (Hydrocortisone 1 % Cream 28.35 Gm Tube) 1 appl TOPICAL BID PRN; Protocol PRN Reason: Rash Hydroxyzine HCl (Hydroxyzine Hcl 25 Mg Tablet) 25 mg PO Q6H PRN PRN Reason: mild anxiety Last Admin: 01/17/25 08:37 Dose: 25 mg Lamotrigine (Lamotrigine 100 Mg Tablet) 200 mg PO DAILY SAM Last Admin: 01/18/25 08:14 Dose: 200 mg [place] Carbonate ([place] Carbonate Er 450 Mg Tablet.Er) 450 mg PO BEDTIME SAM Last Admin: 01/17/25 21:55 Dose: 450 mg Magnesium Hydroxide (Milk Of Magnesia 30 Ml Oral.Susp) 30 ml PO DAILY PRN PRN Reason: Constipation Last Admin: 01/16/25 15:38 Dose: 30 ml Mirtazapine (Mirtazapine 15 Mg Tablet) 15 mg PO BEDTIME SAM Last Admin: 01/17/25 21:54 Dose: 15 mg Olanzapine (Olanzapine 5 Mg Tablet) 5 mg PO Q4H PRN PRN Reason: agitation Last Admin: 01/16/25 11:24 Dose: 5 mg Olanzapine (Olanzapine 10 Mg Tablet) 30 mg PO BEDTIME SAM Last Admin: 01/17/25 21:54 Dose: 30 mg Pantoprazole Sodium (Pantoprazole Sodium 20 Mg Tablet.Dr) 40 mg PO DAILY SAM Last Admin: 01/18/25 08:14 Dose: 40 mg Polyethylene Glycol (Polyethylene Glycol 3350 17 Gm Powd.Pack) 17 gm PO DAILY PRN PRN Reason: constipation Vitamin D (Cholecalciferol (Vitamin D3) 25 Mcg Tablet) 25 mcg PO DAILY SAM Last Admin: 01/18/25 08:14 Dose: 25 mcg Allergies Allergies Allergy/AdvReac Type Severity Reaction Status Date / Time Penicillins Allergy Mild HIVES Verified 01/02/25 23:33 naproxen (NAPROXEN) Allergy Unknown BLEEDING Verified 01/02/25 23:33 penicillin V Allergy Unknown Hives Verified 01/02/25 23:33 Assessment & Plan Assessment & Plan (1) Suicidal ideation: Status: Acute Code(s): R45.851 - Suicidal ideations (2) Bipolar disorder: Status: Acute Code(s): F31.9 - Bipolar disorder, unspecified Plan HPI: Chief complaint: I ran to kitchen to grab the knife to hurt myself Patient Patient is 44-year-old female dropped off by her boyfriend for further evaluation of depression and SI. Patient was trying to reach to the kitchen to kill herself with a knife. No hearing voices, no visual hallucination. Patient is going through financial problem can not afford paying her apartment rent. Patient reports increased stress due to housing issue and possibility to be evicted from the present apartment. She was stressed out and do not know what to do so she ran into the kitchen to grab the knife to hurt herself with a plan to kill her. History of numerous inpatient level of care admissions, last admitted was in November 2024 at [facility], . No history of substance use, no PHP. At baseline she is having mood swing, anxious and depression. However possibility of being evicted from her current apartment make symptoms worse. Increased depression and anxiety, increased suicidal thoughts. Currently continued to endorse passive SI I feel like I should be . High hyper focused on housing. States she is not ready to go home yet as my mental health is not stable . Feeling pressure from her fiance' and her dad to mccray her to go home to help them packing which she is not able to handle at this time. Denies HI/SIB/AVH. Mood is labile, test for time. Formulation/clinical reasoning: Increased stress, anxiety and depression, increased suicidal thoughts with current passive SI. Labile mood. Poor concentration, frustrated easily. Not able to continue working as part-time. Quit her job last week due to stress. Prior to be brought to the emergency room she was trying to get a knife in the kitchen to cut herself to kill her purposely. She can be impulsive. Carrying bipolar disorder, PTSD. Given above information, patient could not be safe in less restrictive environment. We will make medication change to address symptoms of depression anxiety. We will continue to monitor for safety and plan to discharge when patient is more stable. Hospital course: 01/03/27: Continue with home medication; Lamictal 200 mg daily for bipolar. Olanzapine 20 mg at bedtime for mood/psychosis. Trazodone 200 mg at bedtime for insomnia. Order some labs work per protocol. U tox negative. BAL negative. HCG was negative. UA negative. Other labs work unremarkable 01/05: Tolerating buproprion. Mirtazapine 7.5 mg HS to assist with sleep (trial) 01/06/2025: Tolerating Remeron which was just started for sleep, anxiety and depression. Also noted olanzapine and trazodone and bupropion 01/07: no changes 01/08: no changes 01/10: Tolerating [place]. Will consider increase 01/11 Considering options for laxatives and bowel maintenance. Will continue to discuss. Dulcolax ordered x 1. Pt will decide if she will trial. 01/12: [place] level 01/13. Continue tx. 01/13: Li level 1.06 Decrease [place] to 450 mg HS Change laxatives to prn 01/14 Staff reports that overnight, got emotionally dysregulated, and was telling staff that she can't remember why she was incarcerated.. Today she came to lead technical writer and said she wanted to let lead technical writer know that she was not really ever in a gang; she just said she was but is not sure why she said so. She feels terrible about having said so. She seemed to say it had something to do with her being incarcerated in the past. Overall she is feeling a little better -reviewed with patient [place] level WNL at 1.06 01/15 Earlier this morning pt seems to be more in emotional distress over this weekend. Nursing staff wonders if patient got Dysregulated after she learned she'll be discharged next week... Patient: touching staff over and over (seems childlike, not provocative and apologetic when redirected) sleeping well, but keeps asking nurse if she slept well last night... are you sure i slept? over and over are you sure i'm allowed to get naked in my room? will i get in trouble if i put deodorant in my room -getting labs anyway but seems more emotional regression than organic etiology Later on patient seemed to be doing better, getting back to more regular interactions; lead technical writer asked and patient said she knows she was acting confused and says I get like that sometimes... But says she is now feeling better 01/16: [facility] will meet with pt on 01/19. DC 01/20 DC Trazodone Mirtazapine 15 mg HS 01/17: Continue tx 01/18 Continue regime. Pt to meet with [facility] on 01/19, DC 01/20. Plan Patient on 15 minute checks for safety. Monitor for passive SI. Admitted to . CV. Work with treatment team to do collateral. Treatment team to reach out to outpatient therapist and PCP to reschedule appointments. Per patient: Appointment with therapist is in January 09, and PCP appointments is on January 05. Patient signed a consent to release information for zbigniew and fiancee. Marquez-further number is [phone] Patient was medically clear at [facility] ED prior to be admitted to . Reason for continued inpatient stay Substantial Risk for: rapid decompensation Time Spent With Patient Time: Total time managing care of this patient today ____ minutes.
[2025-01-18 20:00] VITALS: BP 131/90; PULSE 113; RESP 16; TEMP 36.7; O2SAT 97
[2025-01-19 07:00] VITALS: BMI 31.3
[2025-01-19 08:00] VITALS: BP 134/77; PULSE 103; RESP 16; O2SAT 97
--- NOTE | 2025-01-19 11:37 | HO.PSYCHPN ---
Subjective Subjective Date of Service: 01/19/25 Reason For Visit: Bipolar D/O Subjective Notes: Conditional Voluntary Healthcare Proxy: No Guardianship: No Medical Problems Affecting Mental Status: No Interim History: Yes, I do feel a lot better . Pt reports she is ready for DC on 01/20. She denies SI,HI,AH,VH. She reports she feels this admission has been productive for her and she is looking forward to seeing her family. Medication Compliance: Yes Side effects from medications: No Attending Groups: Yes Review of Systems Acute medical concerns: No Review of Systems Review of Systems Denies Mental Status Exam Mental Status Exam Narrative: Continues to be less anxious and apprehensive today. Patient Appearance: Appropriate Patient Orientation: Person, Place, Time and Situation Level of Consciousness: Alert Patient Behavior: Talkative and Good Eye Contact Mood Description: Apprehensive Affect Description: Apprehensive Patient Cognition Impaired: No Ability to Follow Directions: Good Speech Pattern: Spontaneous Speech Memory Description: Intact Hallucinations: None Delusions: Not Present Thought Process: Rumination Thought Content: positive for Obsessional Thoughts, positive for Perseveration and positive for Suicidal Ideation (denies) Depressive Symptoms: Thoughts of /Suicide (denies) Judgement: Good Diagnostics Vital Signs (24Hr): Vital Signs - 24 hr 01/18/25 20:00 01/19/25 08:00 Temperature 98.0 F Pulse Rate 113 H 103 H Respiratory Rate 16 16 Blood Pressure 131/90 H 134/77 Pulse Oximetry 97 97 Oxygen Delivery Method Room Air BMI result Body Mass Index 31.6 Labs 01/20/25 07:47 01/20/25 07:47 Imaging Radiology Impressions: ITS Impressions Head CT 01/09/25 10:32 IMPRESSION: No acute intracranial abnormality. Electronically signed by: Jesus Nails MD 01/09/2025 11:56 AM EDT RP KUB X-Ray 01/11/25 11:35 IMPRESSION: No intestinal obstruction pattern. Probable nephrolithiasis, left kidney. Scoliosis and multilevel thoracolumbar spondylosis. Electronically signed by: Karl Johns MD 01/11/2025 11:59 AM EDT RP Medications Medications Current Medications Acetaminophen (Acetaminophen 325 Mg Tablet) 650 mg PO Q6H PRN PRN Reason: Headache/Pain, Scale 1-10 Last Admin: 01/03/25 16:14 Dose: 650 mg Al Hydroxide/Mg Hydroxide (Magnesium Hydrox/Alum Hydrox 30 Ml Oral.Susp) 30 ml PO Q6H PRN PRN Reason: Heartburn/Nausea Bisacodyl (Bisacodyl 5 Mg Tablet.Dr) 10 mg PO BEDTIME PRN PRN Reason: Constipation Last Admin: 01/16/25 20:01 Dose: 10 mg Chlorpromazine HCl (Chlorpromazine Hcl 25 Mg Tablet) 25 mg PO TID PRN PRN Reason: racing thoughts Last Admin: 01/14/25 22:06 Dose: 25 mg Docusate Sodium (Docusate Sodium 100 Mg Capsule) 100 mg PO BEDTIME PRN PRN Reason: constipation Hydrocortisone (Hydrocortisone 1 % Cream 28.35 Gm Tube) 1 appl TOPICAL BID PRN; Protocol PRN Reason: Rash Hydroxyzine HCl (Hydroxyzine Hcl 25 Mg Tablet) 25 mg PO Q6H PRN PRN Reason: mild anxiety Last Admin: 01/19/25 09:18 Dose: 25 mg Lamotrigine (Lamotrigine 100 Mg Tablet) 200 mg PO DAILY SAM Last Admin: 01/19/25 09:18 Dose: 200 mg [place] Carbonate ([place] Carbonate Er 450 Mg Tablet.Er) 450 mg PO BEDTIME SAM Last Admin: 01/18/25 21:16 Dose: 450 mg Magnesium Hydroxide (Milk Of Magnesia 30 Ml Oral.Susp) 30 ml PO DAILY PRN PRN Reason: Constipation Last Admin: 01/16/25 15:38 Dose: 30 ml Mirtazapine (Mirtazapine 15 Mg Tablet) 15 mg PO BEDTIME SAM Last Admin: 01/18/25 21:16 Dose: 15 mg Olanzapine (Olanzapine 5 Mg Tablet) 5 mg PO Q4H PRN PRN Reason: agitation Last Admin: 01/19/25 03:02 Dose: 5 mg Olanzapine (Olanzapine 10 Mg Tablet) 30 mg PO BEDTIME SAM Last Admin: 01/18/25 21:16 Dose: 30 mg Pantoprazole Sodium (Pantoprazole Sodium 20 Mg Tablet.Dr) 40 mg PO DAILY SAM Last Admin: 01/19/25 09:18 Dose: 40 mg Polyethylene Glycol (Polyethylene Glycol 3350 17 Gm Powd.Pack) 17 gm PO DAILY PRN PRN Reason: constipation Vitamin D (Cholecalciferol (Vitamin D3) 25 Mcg Tablet) 25 mcg PO DAILY SAM Last Admin: 01/19/25 09:18 Dose: 25 mcg Allergies Allergies Allergy/AdvReac Type Severity Reaction Status Date / Time Penicillins Allergy Mild HIVES Verified 01/02/25 23:33 naproxen (NAPROXEN) Allergy Unknown BLEEDING Verified 01/02/25 23:33 penicillin V Allergy Unknown Hives Verified 01/02/25 23:33 Assessment & Plan Assessment & Plan (1) Suicidal ideation: Status: Acute Code(s): R45.851 - Suicidal ideations (2) Bipolar disorder: Status: Acute Code(s): F31.9 - Bipolar disorder, unspecified Plan HPI: Chief complaint: I ran to kitchen to grab the knife to hurt myself Patient Patient is 44-year-old female dropped off by her boyfriend for further evaluation of depression and SI. Patient was trying to reach to the kitchen to kill herself with a knife. No hearing voices, no visual hallucination. Patient is going through financial problem can not afford paying her apartment rent. Patient reports increased stress due to housing issue and possibility to be evicted from the present apartment. She was stressed out and do not know what to do so she ran into the kitchen to grab the knife to hurt herself with a plan to kill her. History of numerous inpatient level of care admissions, last admitted was in November 2024 at [facility], . No history of substance use, no PHP. At baseline she is having mood swing, anxious and depression. However possibility of being evicted from her current apartment make symptoms worse. Increased depression and anxiety, increased suicidal thoughts. Currently continued to endorse passive SI I feel like I should be . High hyper focused on housing. States she is not ready to go home yet as my mental health is not stable . Feeling pressure from her fiance' and her dad to mccray her to go home to help them packing which she is not able to handle at this time. Denies HI/SIB/AVH. Mood is labile, test for time. Formulation/clinical reasoning: Increased stress, anxiety and depression, increased suicidal thoughts with current passive SI. Labile mood. Poor concentration, frustrated easily. Not able to continue working as part-time. Quit her job last week due to stress. Prior to be brought to the emergency room she was trying to get a knife in the kitchen to cut herself to kill her purposely. She can be impulsive. Carrying bipolar disorder, PTSD. Given above information, patient could not be safe in less restrictive environment. We will make medication change to address symptoms of depression anxiety. We will continue to monitor for safety and plan to discharge when patient is more stable. Hospital course: 01/03/27: Continue with home medication; Lamictal 200 mg daily for bipolar. Olanzapine 20 mg at bedtime for mood/psychosis. Trazodone 200 mg at bedtime for insomnia. Order some labs work per protocol. U tox negative. BAL negative. HCG was negative. UA negative. Other labs work unremarkable 01/05: Tolerating buproprion. Mirtazapine 7.5 mg HS to assist with sleep (trial) 01/06/2025: Tolerating Remeron which was just started for sleep, anxiety and depression. Also noted olanzapine and trazodone and bupropion 01/07: no changes 01/08: no changes 01/10: Tolerating [place]. Will consider increase 01/11 Considering options for laxatives and bowel maintenance. Will continue to discuss. Dulcolax ordered x 1. Pt will decide if she will trial. 01/12: [place] level 01/13. Continue tx. 01/13: Li level 1.06 Decrease [place] to 450 mg HS Change laxatives to prn 01/14 Staff reports that overnight, got emotionally dysregulated, and was telling staff that she can't remember why she was incarcerated.. Today she came to database report writer and said she wanted to let database report writer know that she was not really ever in a gang; she just said she was but is not sure why she said so. She feels terrible about having said so. She seemed to say it had something to do with her being incarcerated in the past. Overall she is feeling a little better -reviewed with patient [place] level WNL at 1.06 01/15 Earlier this morning pt seems to be more in emotional distress over this weekend. Nursing staff wonders if patient got Dysregulated after she learned she'll be discharged next week... Patient: touching staff over and over (seems childlike, not provocative and apologetic when redirected) sleeping well, but keeps asking nurse if she slept well last night... are you sure i slept? over and over are you sure i'm allowed to get naked in my room? will i get in trouble if i put deodorant in my room -getting labs anyway but seems more emotional regression than organic etiology Later on patient seemed to be doing better, getting back to more regular interactions; database report writer asked and patient said she knows she was acting confused and says I get like that sometimes... But says she is now feeling better 01/16: DM will meet with pt on 01/19. DC 01/20 DC Trazodone Mirtazapine 15 mg HS 01/17: Continue tx 01/18 Continue regime. Pt to meet with [facility] on 01/19, DC 01/20. 01/19 DC 01/20 Plan Patient on 15 minute checks for safety. Monitor for passive SI. Admitted to . CV. Work with treatment team to do collateral. Treatment team to reach out to outpatient therapist and PCP to reschedule appointments. Per patient: Appointment with therapist is in January 09, and PCP appointments is on January 05. Patient signed a consent to release information for that and fiancee. Marquez-further number is [phone] Patient was medically clear at [facility] ED prior to be admitted to . Reason for continued inpatient stay Substantial Risk for: stable for discharge Time Spent With Patient Time: Total time managing care of this patient today ____ minutes.
[2025-01-19 19:58] VITALS: BP 119/75; PULSE 86; RESP 20; TEMP 37; O2SAT 98
[2025-01-20 08:00] VITALS: BP 130/77; PULSE 97; RESP 16; O2SAT 100
[2025-01-20 08:19] LABS: MANUAL DIFF FLAG NO
[2025-01-20 08:22] LABS: Hematocrit 42.9 % (37.0-47.0); Hemoglobin 15.0 g/dl (12.0-16.0); Imm Gran Abs Auto 0.03 X10*3/uL (0.00-0.03); Imm Gran Pct Auto 0.4 % (0.0-0.4); Lymphocytes Absolute Auto 1.9 X10*3/uL (1.2-4.9); Mean Corpuscular HGB Conc 35.0 g/dl (31.0-35.0); Mean Corpuscular Hemoglobin 29.5 pg (27.0-33.0); Mean Corpuscular Volume 84.3 fL (80.0-98.0); NRBC Abs Auto 0.000 X10*3/uL (0.0-0.012); NRBC Pct Auto 0.0 /100WBC (0.0-0.2); Platelet Count 351 X10*3/uL (160-400); Red Blood Count 5.09 X10*6/uL (4.20-5.50); White Blood Count 7.8 X10*3/uL (4.8-10.8)
[2025-01-20 08:28] LABS: Lithium 0.45 mmol/L (0.60-1.20)
[2025-01-20 08:57] LABS: Alanine Aminotransferase 22 U/L (0-31); Albumin Level 4.6 g/dL (3.5-5.0); Alkaline Phosphatase 89 U/L (39-117); Anion Gap 13 (12-20); Aspartate Amino Transferase 19 U/L (5-31); Blood Urea Nitrogen 6 mg/dL (9-16); Calcium 9.2 mg/dL (8.4-10.2); Carbon Dioxide 25 mmol/L (22-29); Chloride 107 mmol/L (96-108); Creatinine Clr Calc Pharmacy 143.6; Estimated Glomerular Filt Rate > 60; Potassium 3.7 mmol/L (3.3-5.1); Sodium 141 mmol/L (135-145); Total Protein 6.8 g/dL (6.5-8.0)
--- NOTE | 2025-01-20 16:17 | P.PNPSI_ITS ---
Subjective Subjective Reason For Visit: Bipolar D/O Diagnostics Vital Signs (24Hr): Vital Signs - 24 hr 01/19/25 19:58 01/20/25 08:00 Temperature 98.6 F Pulse Rate 86 97 Respiratory Rate 20 16 Blood Pressure 119/75 130/77 Pulse Oximetry 98 100 Oxygen Delivery Method Room Air BMI result Body Mass Index 31.3 Labs 01/20/25 07:47 01/20/25 07:47 Labs: Laboratory Results - last 48 hr 01/20/25 07:47 WBC 7.8 RBC 5.09 Hgb 15.0 Hct 42.9 MCV 84.3 MCH 29.5 MCHC 35.0 RDW 11.8 Plt Count 351 MPV 9.0 L Immature Gran % (Auto) 0.4 Neut % (Auto) 66.1 Lymph % (Auto) 24.5 [place] % (Auto) 7.1 Eos % (Auto) 1.5 Baso % (Auto) 0.4 Lymph # (Auto) 1.9 [place] # (Auto) 0.6 Eos # (Auto) 0.1 Baso # (Auto) 0.0 Abs Immat Gran (auto) 0.03 Absolute Neuts (auto) 5.1 Absolute Nucleated RBC 0.000 Nucleated RBC % (auto) 0.0 Sodium 141 Potassium 3.7 Chloride 107 Carbon Dioxide 25 Anion Gap 13 BUN 6 L Creatinine 0.63 Estim Creat Clear Calc 143.6 Estimated GFR > 60 Random Glucose 111 Calcium 9.2 D Total Bilirubin 0.5 AST 19 ALT 22 Alkaline Phosphatase 89 Total Protein 6.8 Albumin 4.6 [place] 0.45 L Imaging Radiology Impressions: ITS Impressions Head CT 01/09/25 10:32 IMPRESSION: No acute intracranial abnormality. Electronically signed by: Jesus Nails MD 01/09/2025 11:56 AM EDT RP KUB X-Ray 01/11/25 11:35 IMPRESSION: No intestinal obstruction pattern. Probable nephrolithiasis, left kidney. Scoliosis and multilevel thoracolumbar spondylosis. Electronically signed by: Karl Johns MD 01/11/2025 11:59 AM EDT RP Medications Allergies Allergies Allergy/AdvReac Type Severity Reaction Status Date / Time Penicillins Allergy Mild HIVES Verified 01/02/25 23:33 naproxen (NAPROXEN) Allergy Unknown BLEEDING Verified 01/02/25 23:33 penicillin V Allergy Unknown Hives Verified 01/02/25 23:33 Assessment & Plan Assessment & Plan (1) Suicidal ideation: Status: Acute Code(s): R45.851 - Suicidal ideations (2) Bipolar disorder: Status: Acute Code(s): F31.9 - Bipolar disorder, unspecified Plan HPI: Chief complaint: I ran to kitchen to grab the knife to hurt myself Patient Patient is 44-year-old female dropped off by her boyfriend for further evaluation of depression and SI. Patient was trying to reach to the kitchen to kill herself with a knife. No hearing voices, no visual hallucination. Patient is going through financial problem can not afford paying her apartment rent. Patient reports increased stress due to housing issue and possibility to be evicted from the present apartment. She was stressed out and do not know what to do so she ran into the kitchen to grab the knife to hurt herself with a plan to kill her. History of numerous inpatient level of care admissions, last admitted was in November 2024 at [facility] [place], . No history of substance use, no PHP. At baseline she is having mood swing, anxious and depression. However possibility of being evicted from her current apartment make symptoms worse. Increased depression and anxiety, increased suicidal thoughts. Currently continued to endorse passive SI I feel like I should be . High hyper focused on housing. States she is not ready to go home yet as my mental health is not stable . Feeling pressure from her fiance' and her dad to mccray her to go home to help them packing which she is not able to handle at this time. Denies HI/SIB/AVH. Mood is labile, test for time. Formulation/clinical reasoning: Increased stress, anxiety and depression, increased suicidal thoughts with current passive SI. Labile mood. Poor concentration, frustrated easily. Not able to continue working as part-time. Quit her job last week due to stress. Prior to be brought to the emergency room she was trying to get a knife in the kitchen to cut herself to kill her purposely. She can be impulsive. Carrying bipolar disorder, PTSD. Given above information, patient could not be safe in less restrictive environment. We will make medication change to address symptoms of depression anxiety. We will continue to monitor for safety and plan to discharge when patient is more stable. Hospital course: 01/03/27: Continue with home medication; Lamictal 200 mg daily for bipolar. Olanzapine 20 mg at bedtime for mood/psychosis. Trazodone 200 mg at bedtime for insomnia. Order some labs work per protocol. U tox negative. BAL negative. HCG was negative. UA negative. Other labs work unremarkable 01/05: Tolerating buproprion. Mirtazapine 7.5 mg HS to assist with sleep (trial) 01/06/2025: Tolerating Remeron which was just started for sleep, anxiety and depression. Also noted olanzapine and trazodone and bupropion 01/07: no changes 01/08: no changes 01/10: Tolerating [place]. Will consider increase 01/11 Considering options for laxatives and bowel maintenance. Will continue to discuss. Dulcolax ordered x 1. Pt will decide if she will trial. 01/12: [place] level 01/13. Continue tx. 01/13: Li level 1.06 Decrease [place] to 450 mg HS Change laxatives to prn 01/14 Staff reports that overnight, got emotionally dysregulated, and was telling staff that she can't remember why she was incarcerated.. Today she came to contract writer and said she wanted to let contract writer know that she was not really ever in a gang; she just said she was but is not sure why she said so. She feels terrible about having said so. She seemed to say it had something to do with her being incarcerated in the past. Overall she is feeling a little better -reviewed with patient [place] level WNL at 1.06 01/15 Earlier this morning pt seems to be more in emotional distress over this weekend. Nursing staff wonders if patient got Dysregulated after she learned she'll be discharged next week... Patient: touching staff over and over (seems childlike, not provocative and apologetic when redirected) sleeping well, but keeps asking nurse if she slept well last night... are you sure i slept? over and over are you sure i'm allowed to get naked in my room? will i get in trouble if i put deodorant in my room -getting labs anyway but seems more emotional regression than organic etiology Later on patient seemed to be doing better, getting back to more regular interactions; contract writer asked and patient said she knows she was acting confused and says I get like that sometimes... But says she is now feeling better 01/16: DM will meet with pt on 01/19. DC 01/20 DC Trazodone Mirtazapine 15 mg HS 01/17: Continue tx 01/18 Continue regime. Pt to meet with [facility] on 01/19, DC 01/20. Plan Patient on 15 minute checks for safety. Monitor for passive SI. Admitted to . CV. Work with treatment team to do collateral. Treatment team to reach out to outpatient therapist and PCP to reschedule appointments. Per patient: Appointment with therapist is in January 09, and PCP appointments is on January 05. Patient signed a consent to release information for that and fiancee. Marquez- further number is [phone] Patient was medically clear at [facility] ED prior to be admitted to . Time Spent With Patient Time: Total time managing care of this patient today ____ minutes.
--- NOTE | 2025-01-20 17:12 | P.DS_ITS ---
DS: Providers Provider Date of admission: 01/03/25 11:41 Primary care physician: Unknown Physician DS: Diagnosis Discharge Diagnosis (1) Suicidal ideation: Status: Acute (2) Bipolar disorder: Status: Acute DS: Medications Discharge Medications Home Medications: Previous Rx's ?Medication ?Instructions ?Recorded cholecalciferol (vitamin D3) 25 25 mcg PO DAILY 30 day s #30 caps 11/29/24 mcg (1,000 unit) capsule (Vitamin D3) pantoprazole 40 mg tablet,delayed 40 mg PO DAILY 30 da ys #30 tabs 11/29/24 release hydroxyzine HCl 25 mg tablet 25 mg PO Q6H PRN mild anx iety #15 01/20/25 tabs lamotrigine 200 mg tablet 200 mg PO DAILY 30 days #30 tabs 01/20/25 lithium carbonate 450 mg 450 mg PO BEDTIME #30 tabs 0 01/20/25 tablet,extended release mirtazapine 15 mg tablet 15 mg PO BEDTIME #30 tabs olanzapine 10 mg tablet 10 mg PO BEDTIME #30 tabs olanzapine 20 mg tablet 20 mg PO BEDTIME #30 tabs Data Data Completed and Pending Completed studies during hospitalization [Text1]: 01/15/25 01/20/25 11:42 07:47 WBC 10.5 7.8 RBC 5.38 5.09 Hgb 15.8 15.0 Hct 45.0 42.9 MCV 83.6 84.3 MCH 29.4 29.5 MCHC 35.1 H 35.0 RDW 11.9 11.8 Plt Count 325 351 MPV 8.8 L 9.0 L Immature Gran % (Auto) 0.3 0.4 Neut % (Auto) 76.0 H 66.1 Lymph % (Auto) 14.9 L 24.5 [place] % (Auto) 7.2 7.1 Eos % (Auto) 1.1 1.5 Baso % (Auto) 0.5 0.4 Lymph # (Auto) 1.6 1.9 [place] # (Auto) 0.8 0.6 Eos # (Auto) 0.1 0.1 Baso # (Auto) 0.1 0.0 Abs Immat Gran (auto) 0.03 0.03 Absolute Neuts (auto) 8.0 5.1 Absolute Nucleated RBC 0.000 0.000 Nucleated RBC % (auto) 0.0 0.0 Sodium 141 141 Potassium 4.3 D 3.7 Chloride 106 107 Carbon Dioxide 27 25 Anion Gap 12 13 BUN 5 L 6 L Creatinine 0.84 0.63 Estim Creat Clear Calc 108.1 143.6 Estimated GFR > 60 > 60 Random Glucose 107 111 Calcium 9.8 9.2 D Total Bilirubin 0.7 0.5 AST 21 19 ALT 20 22 Alkaline Phosphatase 86 89 Ammonia 21 Total Protein 7.1 6.8 Albumin 4.8 4.6 [place] 0.45 L 01/09/25 11:15 Urine clean catch - Clean Catch Midstream Urine Culture - Final No growth. Imaging Diagnostic Imaging Impressions Head CT 01/09/25 10:32 IMPRESSION: No acute intracranial abnormality. Electronically signed by: Jesus Nails MD 01/09/2025 11:56 AM EDT RP KUB X-Ray 01/11/25 11:35 IMPRESSION: No intestinal obstruction pattern. Probable nephrolithiasis, left kidney. Scoliosis and multilevel thoracolumbar spondylosis. Electronically signed by: Karl Johns MD 01/11/2025 11:59 AM EDT RP DS: Summary Time Spent with Patient Time attestation: Total time managing care of this patient today ____ minutes. Discharge Plan Discharge Anticipated Discharge Date/Time: 01/20/25 12:00 Patient Disposition: Home, Self-Care Discharge Diagnosis: Bipolar Disorder Referrals: Psychiatry with Deidra Young APRN [Other] - 01/23/25 5:00 pm Referral Note: Telehealth appointment [facility] [place] [employer]- [place]iar[place] [Other] - 1 Week Physician,Unknown J [Primary Care Provider, Medical] - 1 Week Discharge Medications: New lithium carbonate 450 mg Tablet Extended Release 450 mg PO BEDTIME Qty: 30 0RF hydroxyzine HCl 25 mg Tablet 25 mg PO Q6H PRN (Reason: mild anxiety) Qty: 15 0RF mirtazapine 15 mg Tablet 15 mg PO BEDTIME Qty: 30 0RF olanzapine 20 mg tablet 20 mg PO BEDTIME Qty: 30 0RF Rx Instructions: Take 30 mg at bedtime. olanzapine 10 mg tablet 10 mg PO BEDTIME Qty: 30 0RF Rx Instructions: Take 30 mg at bedtime. Continued pantoprazole 40 mg Tablet,Delayed Release (Dr/Ec) 40 mg PO DAILY 30 Days Qty: 30 0RF cholecalciferol (vitamin D3) [Vitamin D3] 25 mcg (1,000 unit) Capsule 25 mcg PO DAILY 30 Days Qty: 30 0RF lamotrigine 200 mg tablet 200 mg PO DAILY 30 Days Qty: 30 0RF Discontinued trazodone 100 mg tablet 200 mg PO BEDTIME 30 Days Qty: 60 0RF olanzapine [Zyprexa] 20 mg Tablet 20 mg PO BEDTIME 30 Days Qty: 30 0RF ferrous sulfate 324 mg (65 mg iron) Tablet,Delayed Release (Dr/Ec) 324 mg PO BID 30 Days Qty: 60 0RF Discharge Orders: Discharge Order (Routine); Ordered 01/20/25 Ordered By: Franca Wright Diet: Advance to usual diet Activity on Discharge: As tolerated Stand Alone Forms: Patient Portal Discharge page Print Language: German Care Plan Goals: Mood and Behavioral Stabilization Health Concerns: Mood and Behavioral Stabilization Plan of Treatment: Attend scheduled appointments Take medications as directed Call/Return if needed Assessment: Denies SI,HI,AH, VH No sx of acute rosy, psychosis Anxiety present as she is in the process of moving with parag to father's home Discharge Date/Time: 01/20/25 11:35
== END 2025-01-20 11:35 | disposition home or self-care (01) | DRG 885 ==
LOC: HO.ED 01-03 00:41 → HO.PM5 01-03 11:55
PROVIDERS: Psychiatry & Neurology Psychiatry; Admitting Provider Clinical Nurse Specialist Psychiatric/Mental Health, Adult; Emergency Provider Emergency Medicine; Visit Provider Clinical Nurse Specialist Psychiatric/Mental Health, Adult
DX: F31.9 Bipolar disorder, unspecified (principal); R45.851 Suicidal ideations; Z59.811 Housing instability, housed, with risk of homelessness; K59.00 Constipation, unspecified; Z98.84 Bariatric surgery status; Z79.899 Other long term (current) drug therapy
CPT/HCPCS: 36415; 70450; 74018; 80053; 80061; 80178; 80307; 81001; 81025; 82140; 82607; 82746; 83036; 83735; 84439; 84443; 85025; 87086; 99285; S9485

== ENCOUNTER 2025-01-03 11:41 | Outpatient (BNV) | payer OTHER, SELFPAY | END 2025-01-09 10:32 | PROVIDERS: Admitting Provider Clinical Nurse Specialist Psychiatric/Mental Health, Adult; Emergency Provider Emergency Medicine; Visit Provider Radiology Diagnostic Radiology | DX: S09.90XA Unspecified injury of head, initial encounter (principal) | CPT/HCPCS: 70450 ==

== ENCOUNTER 2025-01-03 11:41 | Outpatient (BNV) | payer OTHER, SELFPAY | END 2025-01-11 11:35 | PROVIDERS: Admitting Provider Clinical Nurse Specialist Psychiatric/Mental Health, Adult; Emergency Provider Emergency Medicine; Visit Provider Radiology Diagnostic Radiology | DX: K59.00 Constipation, unspecified (principal) | CPT/HCPCS: 74018 ==

== ENCOUNTER → 2025-01-03 11:41 | Outpatient (BNV) | payer OTHER, SELFPAY | PROVIDERS: Admitting Provider Clinical Nurse Specialist Psychiatric/Mental Health, Adult; Emergency Provider Emergency Medicine; Visit Provider Nurse Practitioner Psychiatric/Mental Health | DX: F31.4 Bipolar disorder, current episode depressed, severe, without psychotic features (principal); R45.851 Suicidal ideations | CPT/HCPCS: 90792; 99231; 99232 ==

== ENCOUNTER 2025-02-08 09:42 | Outpatient (REF) | payer OTHER, SELFPAY ==
--- OUTSIDE RECORDS SUMMARY | 2025-02-08 10:06 | XMS_ITS | Clinical Summary ---
Author Organization [facility] Address [address] [place] [address] Phone Care Team Providers Care Insight Director Name Role Phone Zaheer Madden MD Primary Care Provider [phone] Allergies Active Allergy Reactions Criticality Noted Date Comments Naproxen Other 12/02/2016 Stomach bleed with other medication Penicillins Hives 08/15/2005 Medications lamoTRIgine (LaMICtal) 150 mg tablet Take 150 mg by mouth daily. Active multivitamin (DAILY VITAMIN ORAL) Take by mouth. Active nystatin (MYCOSTATIN) 100,000 unit/gram powder Apply BID. 10/29/2023 A ctive OLANZapine (ZyPREXA) 20 mg tablet Take 20 mg by mouth at bedtime. Active traZODone (DESYREL) 100 mg tablet Take 2 Tablets by mouth at bedtime. Active acetaminophen (TYLENOL) 500 mg tablet Take 2 tablets (1,000 mg total) by mouth every 6 (six) hours if needed for mild pain (60). 40 tablet 06/13/2024 Active topiramate (Topamax) 100 mg tabletIndication s:Obesity, Class I, BMI 30-34.9 Take 1 tablet (100 mg total) by mouth at bedtime. 90 each 10/17/2024 Active phentermine 30 mg capsuleIndicatio ns:Class 2 obesity due to excess calories with body mass index (BMI) of 39.0 to 39.9 in adult, unspecified whether serious comorbidity present Take 1 capsule (30 mg total) by mouth 1 (one) time each day before breakfast. Max Daily Amount: 30 mg 30 each 11/16/2024 Active ferrous sulfate 324 mg (65 mg elemental iron) EC tabletIndication s:Postsurgical malabsorption, not elsewhere classified TAKE 1 TABLET BY MOUTH TWICE A DAY 180 tablet 1 11/25/2024 Active Active Problems Problem Noted Date Diagnosed Date Class 2 obesity with body ma ss index (BMI) of 39.0 to 39.9 in adult 05/10/2024 Abdominal pannus 07/29/2017 Intertrigo 07/29/2017 Alcohol dependence (CMS/[facility] V24, CMS/[facility] V28) Overview (05/10/2024): Per old records Anxiety 11/28/2008 Idiopathic scoliosis and kyphoscoliosis 08/15/19 06 Encounters Date Type Department Care Team Description 11/14/2024 Telephone Bariatric Surgery - [address] [place] [address] Eli Greer MD Med Refill (Phentermine) from Last 3 Months Immunizations Name Administration Dates Next Due Pfizer SARS-CoV-2 COVID-19, mRNA, LNP-S, preservative free 12/15/2020,11/24/2020 Td Tetanus diptheria (Tdvax) 7yo and older 08/15 Surgical History Surgery Date Site/Laterality Comments SECTION 11/2001 PROCEDURE: HISTORICAL DELIVERY SECTION 04/2006 PROCEDURE: [place] DELIVERY ONLY SECTION 04/2011 PROCEDURE: [place] DELIVERY ONLY TUBAL LIGATION PROCEDURE: HISTORICAL TUBAL LIGATION GASTRIC BYPASS 04/09/2020 PROCEDURE: [place] GASTRIC RSTCV W/BYP W/SM INT RCNSTJ LIMIT ABSRPJ; COMMENT: sleeve HYSTEROSCOPY 07/17/2021 PROCEDURE: [place] HYSTEROSCOPY BX ENDOMETRIUM&/POLYPC W/WO D&C; COMMENT: Exam [...] disease, unspecified; COMMENT: Chlamydia 07/16/05 Alcohol dependence ([facility] V24, [facility] V28) 11/28/2008 DX:Alcohol dependence ([facility]); COMMENT: Per old records Anxiety 11/28/2008 DX:Anxiety Bipolar 1 disorder, depresse d, mild ([facility] V24, [facility] V28) 2007 DX:Bipolar 1 disorder, depr essed, mild ([facility]) Depression PTSD (post-traumatic stress disorder) [...] 80 07/26/2024 9:33 AM EST Temperature 37.1 C (98.7 F) 07/26/2024 9:33 AM EST Respiratory Rate 18 06/13/2024 12:15 PM EST Oxygen Saturation 96% 06/13/2024 12:15 PM EST Inhaled Oxygen Concentration - - Weight 105 kg (232 lb) 07/12/2024 9:07 AM EST Height 175.3 cm (5' 9 ) 07/12/2024 9:07 AM EST Body Mass Index 34.26 07/12/2024 9:07 AM EST Plan of Treatment Upcoming Encounters Date Type Department Care Team (Late st Contact Info) Description 07/18/2025 8:30 AM EST Office Visit Bariatric Surgery - [place] [address] [facility] [address] [place] [id number] Eli Greer MD [address] [facility] [address] [place] [address] Health Maintenance Due Date Last Done Comments Breast Cancer Screening 1982 Hepatitis A Vaccines (1 of 2 - Risk 2-dose series) 2001 Hepatitis B Vaccines (1 of 3 - 19+ 3-dose series) 2001 Social Influencers of Health Screening 06/14/2022 COVID-19 Vaccine ( season) 2024 06/24/2023, 07/11/2021, 12/15/2020, Additional history exists Depression Screening 07/06/2024 Influenza Vaccine (#1) 2025 Cervical Cancer Screening: HPV 07/30/2025 07/30/2020 Cholesterol [...] age to complete this topic Meningococcal B Vaccine Aged Out No l onger eligible based on patient's age to complete this topic Pneumococcal Vaccine: Pediatrics (0 to 5 Years) and At-Risk Patients (6 to 49 Years) Aged Out No longer eligible based on patient's age to complete this topic RSV Immunization Patients Under 20 months Aged Out No longer eligible based on patient's age to complete this topic Varicella Vaccines Aged Out No longer eligible based on patient's age to complete this topic Procedures Procedure Name Priority Date/Time Associated Diagnosis Comments HIV SCREENING Routine 04/05/2024 LIPID PANEL Routine 06/24/2023 HEPATITIS C SCREENING Routine 03/15/2021 HPV Routine 07/30/2020 from Last 3 Months or Most Recently Relevant to Health Maintenance Results * HIV Screening (04/05/2024) [facility] HIV Screening Abstracted [facility] Provider HEALTH MAINTENANCE Final Result * Lipid panel (06/24/2023) [facility] LDL/HDL Ratio 0 Comment:No Interpretation, A bstracted Triglycerides 0 mg/dL Comment:No Interpretation, A bstracted Cholesterol 0 mg/dL Comment:No Interpretation, A bstracted HDL 0 mg/dL Comment:No Interpretation, A bstracted LDL Cholesterol 0 mg/dL Comment:No Interpretation, A bstracted Blood Venous blood specimen / Unknown [facility] Provider LAB BLOOD ORDERABLES Joana l Result * Hepatitis C Screening (03/15/2021) [facility] Hepatitis C Screening Abstracted [facility] Provider HEALTH MAINTENANCE Final Result * Cervical Cancer Screening: HPV (07/30/2020) [facility] Cervical Cancer Screening: HPV Negative, Abstracted [facility] Provider HEALTH MAINTENANCE Final Result from Last 3 Months or Most Recently Relevant to Health Maintenance Insurance [facility] MEDICAID Advance Directives Documents on File Type Date Recorded Patient Printing Technician Expl anation Advance Directives and Livin g [...] currently active code status orders. Care Teams Insight Director Relationship Specialty Start Date End Date Zaheer Madden MD [address] [place], [place] PCP - General Internal Medicine 01/26/18
--- OUTSIDE RECORDS SUMMARY | 2025-02-08 10:06 | XMS_ITS | Encounter Summary ---
Author Organization [employer] Address [address] [facility] [address] [place] [address] Care Team Providers Care Warehouse Clerk Name Role Phone Zaheer Madden MD Primary Care Provider [phone] Encounter Details Date Type Department Care Team (Latest Contact Info) Description 02/08/2025 Travel Social History Tobacco Use Types Packs/Day [...] documented as of this encounter Care Teams Warehouse Clerk Relationship Specialty Start Date End Date Zaheer Madden MD [address] [place] [id number] PCP - General Internal Medicine 07/06/18 documented as of this encounter
[2025-02-08 14:25] LABS: MANUAL DIFF FLAG NO
[2025-02-08 14:36] LABS: Hematocrit 40.6 % (37.0-47.0); Hemoglobin 13.5 g/dl (12.0-16.0); Imm Gran Abs Auto 0.01 X10*3/uL (0.00-0.03); Imm Gran Pct Auto 0.1 % (0.0-0.4); Lymphocytes Absolute Auto 1.8 X10*3/uL (1.2-4.9); Mean Corpuscular HGB Conc 33.3 g/dl (31.0-35.0); Mean Corpuscular Hemoglobin 29.6 pg (27.0-33.0); Mean Corpuscular Volume 89.0 fL (80.0-98.0); NRBC Abs Auto 0.000 X10*3/uL (0.0-0.012); NRBC Pct Auto 0.0 /100WBC (0.0-0.2); Platelet Count 327 X10*3/uL (160-400); Red Blood Count 4.56 X10*6/uL (4.20-5.50); White Blood Count 7.3 X10*3/uL (4.8-10.8)
[2025-02-08 14:58] LABS: Lithium 0.32 mmol/L (0.60-1.20)
[2025-02-08 15:01] LABS: Alanine Aminotransferase 15 U/L (0-31); Albumin Level 4.2 g/dL (3.5-5.0); Alkaline Phosphatase 86 U/L (39-117); Anion Gap 11 (12-20); Aspartate Amino Transferase 20 U/L (5-31); Blood Urea Nitrogen 7 mg/dL (9-16); Calcium 9.0 mg/dL (8.4-10.2); Carbon Dioxide 26 mmol/L (22-29); Chloride 108 mmol/L (96-108); Estimated Glomerular Filt Rate > 60; Potassium 3.9 mmol/L (3.3-5.1); Sodium 141 mmol/L (135-145); Total Protein 6.4 g/dL (6.5-8.0)
== END 2025-02-08 09:43 | disposition home or self-care (01) ==
LOC: HO.CHCLDS 09:42
PROVIDERS: Visit Provider Internal Medicine
DX: F31.70 Bipolar disorder, currently in remission, most recent episode unspecified (principal)
CPT/HCPCS: 36415; 80053; 80178; 84443; 85025

== ENCOUNTER 2025-06-05 10:22 | Outpatient (AMB) | payer OTHER, SELFPAY ==
--- NOTE | 2025-06-05 10:28 | MHC.OFFVIS ---
Vital Signs 06/05/25 10:37 Height 5 ft 9 in Weight 246 lb BMI 36.3 BP 134/74 Blood Pressure Location Rt brachial Position Sitting Pulse 93 Intake Visit Reasons: perianal skin lesion Intake Note: Patient presents for an assessment for perianal skin lesion. Pt c/o; reports she has a growth outside the anus, reports no discharge,pus or oozing. Stage Rigger Required: No Accompanied by: Self / Same As Patient Allergies Penicillins Allergy (Mild, Verified 06/05/25 10:38) HIVES naproxen (NAPROXEN) Allergy (Unknown, Verified 06/05/25 10:38) BLEEDING penicillin V Allergy (Unknown, Verified 06/05/25 10:38) Hives Medication List - Last Reconciled 06/05/25 by Cruzito Lott MD cholecalciferol (vitamin D3) (Vitamin D3) 25 mcg PO DAILY 30 days hydroxyzine HCl 25 mg PO Q6H PRN lamotrigine 200 mg PO DAILY 30 days lithium carbonate ER 450 mg PO BEDTIME mirtazapine 15 mg PO BEDTIME olanzapine 20 mg PO BEDTIME olanzapine 10 mg PO BEDTIME pantoprazole 40 mg PO DAILY 30 days HPI HPI perianal skin lesion: Details: [age] year old female referred for a perianal skin lesion. She says she says the hemorrhoids since she was 20 years old. She says she says she has this ?small lump? next to her hemorrhoids which I have been bothering her. She says that she often has to push the hemorrhoids back in as well. She says that sometimes these areas well as a periodically She does not have any bleeding per rectum. She denies being constipated. Had been twice before. [facility] Medical History (Updated 06/05/25 @ 10:54 by Cruzito Lott MD) External hemorrhoids Depression PTSD (post-traumatic stress disorder) Bipolar 1 disorder Anxiety delivery delivered Surgical History H/O gastric sleeve History of partial hysterectomy Gastric bypass status for obesity Tubal ligation status Family History Father Cancer of kidney Social History Household Members: Significant Other Housing: Apartment Housing Other:: About to be evicted at end of January 2025. Do you presently have visiting nurse or other home services: No Alcohol intake: never Patient Tobacco Use Status: Never used Tobacco Substance Use Type: Marijuana service: No Sexual orientation: Straight/Heterosexual Physical Exam Vital Signs: Last Vital Signs Pulse 93 06/05/25 10:37 BP 134/74 06/05/25 10:37 BMI result Body Mass Index 36.3 Const General: comfortable and no acute distress Orientation/consciousness: patient oriented x3 Neck Neck: Yes no lymphadenopathy Resp Auscultation: clear to auscultation bilaterally Cardio Rhythm: regular rhythm GI Other: Rectal exam shows very prominent external hemorrhoids on the anterior area with note of an area that is sclerosed Palpation (GI): Soft to palpation, nontender and no guarding Neuro General: patient oriented x3 Assessment & Plan Assessment & Plan (1) External hemorrhoids: Code(s): K64.4 - Residual hemorrhoidal skin tags Category: Medical Plan: She says this has been bothering and wants this excised. I explained the technique of exam under anesthesia and hemorrhoidectomy. I reviewed with the risks including but not limited to bleeding, infections, poor healing, sphincter dysfunction, and postop pain. I explained to her what to expect postoperatively She says she understands and wants to proceed Coding Level of Care Code New Pt Level 3 (31113) Diagnoses External hemorrhoids K64.4
[2025-06-05 10:37] VITALS: BP 134/74; PULSE 93; BMI 36.3
--- OUTSIDE RECORDS SUMMARY | 2025-06-05 12:59 | XMS_ITS | Encounter Summary ---
Author Organization [employer] Address [address] [facility] [address] [place] [address] Care Team Providers Care Active Directory Administrator Name Role Phone Zaheer Madden MD Primary Care Provider [phone] Encounter Details Date Type Department Care Team ([facility] st Contact Info) Description 04/07/2024 Orders Only [facility] [address] [place] [address] Zaheer Madden MD [address] [place] [address] Recurrent UTI (Primary Dx) Social History Tobacco [...] with others, in a hotel, in a snf, living outside on the street, on a [...] documented as of this encounter Care Teams Active Directory Administrator Relationship Specialty Start Date End Date Zaheer Madden MD [address] [place] [id number] PCP - General Internal Medicine 07/06/18 documented as of this encounter
--- OUTSIDE RECORDS SUMMARY | 2025-06-05 12:59 | XMS_ITS | Encounter Summary ---
Author Organization [employer] Address [address] [facility] [address] [place] [address] Care Team Providers Care Behavioral Therapist Name Role Phone Zaheer Madden MD Primary Care Provider [phone]- [phone] Encounter Details Date Type Department Care Team ([facility] st Contact Info) Description 03/13/2025 Orders Only [facility] [address] [place], [place] [id number] Provider, MD Familia Social History Tobacco Use Types Packs/Day Years [...] with others, in a hotel, in a group home, living outside on the street, on [...] Name Priority Date/Time Associated Diagnosis Comments CT PELVIS W CONTRAST Routine 03/12/2025 9:21 AM EDT documented in this encounter Results * CT Pelvis w/ Contrast (03/12/2025 9:21 AM EDT) Anatomical Region Laterality Modality Body, Pelvis Computed Tomogra phy us Historical Provider MD ROBERTSON CT PROCEDURES Final R esult documented in this encounter Visit Diagnoses Not on filedocumented in this encounter Additional Health Concerns Assessment Noted Time PHQ-9 Depression Total Score: 2 07/27/19 25 10:08 AM EST documented as of this encounter Care Teams Behavioral Therapist Relationship Specialty Start Date End Date Zaheer Madden MD [address] [place] [id number] PCP - General Internal Medicine 07/06/18 documented as of this encounter
--- OUTSIDE RECORDS SUMMARY | 2025-06-05 12:59 | XMS_ITS | Clinical Summary ---
Author Organization [employer] Address [address] [facility] 7t [place] [address] Care Team Providers Care Ec Teacher Name Role Phone Zaheer Madden MD Primary Care Provider Allergies Active Allergy Reactions Criticality Noted Date Comments Naproxen Hives Low 08/01/2022 Penicillins Hives Low 08/01/2022 Medications OLANZapine (ZyPREXA) 20 MG tablet Take 1 tablet by mouth at bedtime. 06/03/2022 Active cholecalciferol (D3-1000) 25 MCG (1000 UT) capsule TAKE 1 CAPSULE BY MOUTH EVERY DAY 90 capsule 3 11/23/2024 Active hydrOXYzine HCl (Atarax) 25 MG tablet Take 1 tablet by mouth every 6 (six) hours if needed for anxiety. 01/20/2025 Active lamoTRIgine (LaMICtal) 200 MG tablet Take 1 tablet by mouth at bedtime. 01/20/2025 Active lithium ER (Eskalith) 450 MG 12 hr tablet Take 1 tablet by mouth at bedtime. 01/20/2025 Active Remeron 15 MG tablet Take 1 tablet by mouth at bedtime. 01/20/2025 Active OLANZapine (ZyPREXA) 10 MG tablet Take 1 tablet by mouth at bedtime. TDD 30 mg 01/20/2025 Active pantoprazole (ProtoNix) 40 MG EC tabletIndication s:Bipolar disorder in full remission, most recent episode unspecified type (CMS/HCC) Take 1 tablet (40 mg) by mouth Once per day. 90 tablet 1 02/08/2025 Active Active Problems Problem Noted Date Diagnosed [...] Encounters Date Type Department Care Team Description 04/24/2025 Telephone [facility] MED & PEDS [address] [place] [address] Zaheer Madden MD ER Follow-up 04/21/2025 Orders Only [facility] [address] [place], [place] [phone] Familia Gillespie MD 03/14/2025 1:00 PM EDT Office Visit [facility] MED & PEDS [address] [place] [address] Zaheer Madden MD Other hemorrhoids (Primary Dx); Neoplasm of perianal skin 03/14/2025 Travel 03/13/2025 Telephone [facility] MED & PEDS [address] [place] [address] Zaheer Madden MD Nurse Triage 03/13/2025 Orders Only [facility] MED & PEDS [address] [place] [address] ProviderFamilia MD from Last 3 Months Immunizations Immunization Administration Dates Next Due Pfizer Covid-19 Vaccine [...] Sign Reading Time Taken Comments Blood Pressure 125/80 03/14/2025 1:09 PM EDT Pulse 93 03/14/2025 1:09 PM EDT Temperature 36.9 C (98.5 F) 03/14/2025 1:09 PM EDT Respiratory Rate 20 03/14/2025 1:09 PM EDT Oxygen Saturation 98% 02/08/2025 9:03 AM EDT Inhaled Oxygen Concentration - - Weight 107 kg (236 lb) 03/14/2025 1:09 PM EDT Height 170.2 cm (5' 7 ) 02/08/2025 9:03 AM EDT Body Mass Index 36.96 02/08/2025 9:03 AM EDT Plan of Treatment Health Maintenance Due Date Last Done Comments Derm Melanoma Skin Check 1980 Family Planning (PISQ) 1997 HPV Vaccines (1 - 3-dose series) 1997 Hepatitis B Vaccines (1 of 3 - 19+ 3-dose series) 2001 Pneumococcal Vaccine: Pediatrics (0 to 5 Years) and At-Risk Patients (6 to 49) Years (1 of 2 - PCV) 2001 SDOH Screening 06/16/2024 06/16/2023 COVID-19 Vaccine ( season) 2025 06/24/2023, 07/11/2021, 12/15/2020, Additional history exists Influenza Vaccine (#1) 2025 Alcohol/Substance Use Screening 07/27/2025 07/27/2024 Depression Screening 07/27/2025 07/27/2024, 07/27/19 Disability Screening 02/01/2026 02/01/2025 Tobacco Screening 03/14/2026 03/14/2025 Cervical Cancer Screening 05/26/2026 HPV/Cotest 05/26/2026 05/26/2023, [...] Name Priority Date/Time Associated Diagnosis Comments XR SHOULDER 2+ VIEWS RIGHT Routine 04/21/2025 4:[address] PELVIS W CONTRAST Routine 03/12/2025 9:21 AM EDT BI MAMMOGRAM SCREENING TOMOSYNTHESIS BILATERAL Routine 08/26/2024 [...] Recently Relevant to Health Maintenance Results * XR Shoulder 2+ Views Right (04/21/2025 4:13 PM EDT) Anatomical Region Laterality Modality Upper Extremities, Shoulder Right Radi ographic Imaging us Historical Provider MD ROBERTSON XR PROCEDURES Final R esult * CT Pelvis w/ Contrast (03/12/2025 9:21 AM EDT) Anatomical Region Laterality Modality Body, Pelvis Computed Tomogra phy us Historical Provider MD ROBERTSON CT PROCEDURES Final R esult * BI Mammogram Screening Tomosynthesis Bilateral (08/26/2024 7:46 AM EST) Anatomical Region Laterality Modality Breast Bilateral Mammography 08/26/2024 7:46 AM EST Narrative 09/02/2024 3:40 PM EST [address] [place] [address] Mammography Report Signed Patient: Gina Uriostegui MR#: [id number] : 1980 Acct:[id number] Age/Sex: 44 / F ADM Date: 08/26/24 Loc: HO.MAMMO Attending Dr: Tai Dodd CNM Ordering Physician: TAI DODD CNM Results: 1 Negative Date of Service: 08/26/24 Follow Up: 1 Year From Orig ina Mammogram Procedure(s): MM tomosynthesis screening BI Accession Number(s): [id number] cc: Zaheer Madden MD; TAI DODD CNM [...] by: Shila Chavez DO 09/02/2024 03:37 PM EST Dictated By: Shila Chavez DO Signed By: <Electronically signed by Shila Chavez DO in OV> 09/02/24 1537 DD/ 0746 TD/TT: 08/26/24 0801 Wood Coater: Procedure Note Donotuseinterpreter, Image - 09/02/[address] [place] [address] Mammography Report Signed Patient: Gina Uriostegui AMR#: [id number] : 1980Acct:[id number] Age/Sex: 44 / FADM Date: 08/26/24 Loc: HO.MAMMO Attending Dr: Tai Dodd CNM Ordering Physician: ATI DODDesults: 1 Negative Date of Service: 08/26/24Follow Up: 1 Year From Orig inal Mammogram Procedure(s): MM tomosynthesis screening BI Accession Number(s): [id number] cc: Zaheer Madden MD; TAI DODD CNM [...] Shila Chavez DO 09/02/2024 03:37 PM [facility] [place] [place] Dictated By: Shila Chavez DO Signed By: <Electronically signed by Shila Chavez DO in OV> 09/02/24 1537 DD/ 0746 TD/TT: 08/26/24 0801 Wood Coater: us Tai Dodd CNM IM BI PROCEDURES Final R esult * HIV-1/2 Antigen and Antibodies, Fourth Generation, with Reflexes (04/05/2024 10:31 AM EDT) HIV AB/AG Nonreactive Nonreactive [facility] Comment:HIV-1 p24 Ag and/or HIV-1/HIV-2 Ab not detected.A test result that is nonreactive does not exclude thepossibility of exposure to or infection with HIV-1 and/orHIV-2. Nonreactive results in this assay for individualswith prior exposure to HIV-1 and/or HIV-2 may be due toantigen and antibody levels that are below the limit ofdetection of this assay.The [employer] HIV Ag/Ab Combo assay result andsupplemental assay results should be interpreted inconjunction with the patient's clinical presentation,history and other laboratory results. If the results areinconsistent with clinical evidence, additional testing issuggested to confirm the result. Blood Venous blood specimen / Unknown 04/05/2024 10:31 AM EDT 04/05/2024 2:13 PM EDT us Tai Dodd [facility] BLOOD ORDERABLES Joana irvin Result [facility] [address] [place] [phone] * Lipid Panel, Standard (06/24/2023 12:06 PM EST) Triglycerides 102 <150 mg/dL [facility] Comment:Desirable Triglyceri de: less than 150 mg/dLBorderline High Triglyceride 150-199 mg/dLHigh Triglyceride: 200-499 mg/dLVery High Triglyceride: greater than or equal to 5OO mg/dL Cholesterol 155 <200 mg/dL [facility] Comment:Desirable Cholestero l: less than 200 mg/dLBorderline High Cholesterol: 200-239 mg/dLHigh Cholesterol: greater than 239 mg/dL LDL Cholesterol Calculated 84 <100 mg/dL [facility] Comment:Desirable LDL: less than 100 mg/dLNear Optimal/Above Optimal LDL: 110- 129 mg/dLBorderline High LDL: 130-159 mg/dLHigh LDL: 160-189 mg/dLVery High LDL: greater than or equal to 190 mg/dL HDL Cholesterol 51 >40 mg/dL [facility] Comment:Desirable HDL: great er than 40 mg/dL Note: This HDL assay may give artificially low results in patients with liver disease. Blood Venous blood specimen / Unknown 06/24/2023 12:06 PM EST 06/24/2023 2:00 PM EST Zaheer Madden MD LAB BLOOD ORDERABLES Final Result Performing Organization Address [facility]/ZIP Co de Phone Number [facility] [address] [place] [phone] * HPV mRNA E6/E7 w/Reflex to HPV Genotypes 16, 18/45 (05/26/2023 10:45 AM EST) HPV nRNA E6/E7 Not Detected Not Detected [facility] Comment:Methodology: Transcr iption-Mediated AmplificationThis assay detects E6/E7 viral messenger RNA (mRNA) from 14high-risk HPV types (16,18,31,33,35,39,45,51,52,56,58,59,66,68).Cervical sources are required for HPV testing.If a vaginal source from a patient who has had atotal hysterectomy with removal of cervix wassubmitted, please contact the testing laboratoryfor alternative testing options.For additional information, please refer tohttp://education.Xtract/faq/FGP003c7(This link if provided for information/educational purposes only.)THIS TEST WAS PERFORMED AT:[employer] [place] [phone] HOLMAN MD HPV mRNA E6/E7 TNP [facility] HPV 16 RNA [facility] HPV 18/45 RNA [facility] 05/26/2023 10:4 5 AM EST 05/27/2023 8:30 AM EST us Tai Dodd CNM LAB CYTOLOGY ORDERABLES F inal Result Performing Organization Address [facility]/ZIP Co de Phone Number [facility] [address] [place] [phone] * Pap Smear (05/26/2023 10:45 AM EST) 05/26/2023 10:4 5 AM EST 05/27/2023 8:30 AM EST [facility] - 06/09/2023 7:58 AM EST ----- ------- Name: rafiqKe yumaxwell Armstrong Age/Sex: 43/F : 1980 [id number] Unit#: [id number] Attend Dr: TAI DODD CNM Re05/26/23 Status: [facility] REF Location: HO.CHCLNP Disch: ----- ------- SPEC : [id number] RECD: 05/27/23 STATUS: BUCK GOODWIN NUM: [id number] JOE: 05/26/23-[address] [facility] [address]: TAI DODD CNM ENTERED: 05/27/2345 SP TYPE: Pap Smr [facility] DR: ORDERED: Pap Smear Interpretation Satisfactory for evaluation. No endocervical cells seen. Mild inflammation. Negative for intraepithelial lesion or malignancy. HPV mRNA E6/E7: NOT DETECTED This assay detects E6/E7 viral messenger RNA (mRNA) from 14 high-risk HPV types (16, 18, 31, 33, 35, 39, 45, 51, 52, 56, 58, 59, 66, 68) HPV testing performed by [employer], [place], [place]. See reference laboratory portion of the EMR for entire report. Clinical Information LMP: Unknown date Previous PAP test: 2020, WNL Other history: 2020, NIL HPV Material Received ThinPrep-Vaginal/Cervical ----- ------- Signed (signature on file) SLIME Panchal (ASC) 06/09/23 0758 ----- ------- END OF REPORT us Tai Dodd [facility] CYTOLOGY ORDERABLES F inal Result [facility] [address] [place] [phone] * HEPATITIS C AB W/REFL TO HCV RNA, QN, PCR (03/15/2021 9:03 AM EDT) HEPATITIS C ANTIBODY NON-REACT NADIA NON-REACT NADIA [facility] INDEX 0.01 <1.00 [facility] Comment: HCV antibody was non-reactive. There is no laboratory evidence of HCV infection. In most cases, no further action is required. However, if recent HCV exposure is suspected, a test for HCV RNA (test code 10160) is suggested. For additional information please refer to http://education.Xtract/faq/HLH60a1 (This link is being provided for informational/ educational purposes only.) 03/15/2021 9:03 AM EDT Tai Dodd CNM HISTORICAL/NON ORDERABLE LABS Final Result [facility] [address] [place] [address], from Last 3 Months or Most Recently Relevant to Health Maintenance Insurance [address] [id number] [facility] STANDARD [facility] < 65 Care Teams Ec Teacher Relationship Specialty Start Date End Date Zaheer Madden MD [address] [place] [phone] PCP - General Internal Medicine 07/06/18
--- OUTSIDE RECORDS SUMMARY | 2025-06-05 12:59 | XMS_ITS | Encounter Summary ---
Author Organization [employer] Address [address] [facility] 7 [place] [address] Care Team Providers Care Mutuel Machine Operator Name Role Phone Zaheer Madden MD Primary Care Provider [phone]- [phone] Reason for Visit * Reason Onset Date Comments Nurse Triage 10/12/2023 Encounter Details Date Type Department Care Team (Late st Contact Info) Description 10/12/2023 Telephone [facility] MEDICINE [address] [place] [address] Zaheer Madden MD [address] [place] [address] Nurse Triage Social History Tobacco Use Types Packs/Day Years Used Date Smoking Tobacco: Never Passive Smoke Exposure: Never Smokeless Tobacco: Never Alcohol Use Standard Drinks/Week Comments Not Currently 0 (1 standard drink = 0.6 oz pur e alcohol) Housing Stability Answer Date Recorded What is your housing situation today? I do not have housing (Staying with others, in a hotel, in a fci, living outside on the street, on a [...] afternoon tomorrow. ASK/Nic PETERSON 10/26/23 1015am in [facility]. Patient in agreement with plan. Team tasked [...] this outcome Pt is requesting appt with [employer] OPERATIONS OFFICER No further details provided documented in this encounter Plan of Treatment Not on file documented as of this encounter Visit Diagnoses Not on filedocumented in this encounter Care Teams Mutuel Machine Operator Relationship Specialty Start Date End Date Zaheer Madden MD [address] [place] [phone] PCP - General Internal Medicine 07/06/18 documented as of this encounter
--- OUTSIDE RECORDS SUMMARY | 2025-06-05 12:59 | XMS_ITS | Encounter Summary ---
Author Organization [employer] Address [address] [facility] 7t [place] [address] Care Team Providers Care Parimutuel Clerk Name Role Phone Zaheer Madden MD Primary Care Provider +1- [phone] Encounter Details Date Type Department Care Team (Late st Contact Info) Description 04/21/2025 Orders Only [facility] [address] [place], [place] [phone] ProviderFamilia MD Social History Tobacco Use Types [...] with others, in a hotel, in a correction, living outside on the street, on a [...] VIEWS RIGHT Routine 04/21/2025 4:13 PM EDT documented in this encounter Results * XR Shoulder 2+ Views Right [...] documented as of this encounter Care Teams Parimutuel Clerk Relationship Specialty Start Date End Date Zaheer Madden MD [address] [place] [phone] PCP - General Internal Medicine 07/06/18 documented as of this encounter
--- OUTSIDE RECORDS SUMMARY | 2025-06-05 12:59 | XMS_ITS | Encounter Summary ---
Author Organization [employer] Address [address] [facility] 7 [place] [address] Care Team Providers Care Service Center Manager Name Role Phone Zaheer Madden MD Primary Care Provider +1- [phone] Reason for Visit * Reason Onset Date Comments Reschedule 08/11/2023 Encounter Details Date Type Department Care Team ([facility] st Contact Info) Description 08/11/2023 Telephone [facility] MED[facility]INE [address] [place] [address] Zaheer Madden MD [address] [place] [address] Reschedule Social History Tobacco Use Types Packs/Day Years Used Date Smoking Tobacco: Never Passive Smoke Exposure: Never Smokeless Tobacco: Never Alcohol Use Standard Drinks/Week Comments Not Currently 0 (1 standard drink = 0.6 oz pur e alcohol) Housing Stability Answer Date Recorded What is your housing situation today? I do not have housing (Staying with others, in a hotel, in a assisted, living outside on the street, on a [...] on filedocumented in this encounter Care Teams Service Center Manager Relationship Specialty Start Date End Date Zaheer Madden MD [address] [place] [phone] PCP - General Internal Medicine 07/06/18 documented as of this encounter
--- OUTSIDE RECORDS SUMMARY | 2025-06-05 12:59 | XMS_ITS | Encounter Summary ---
Author Organization [employer] Address [address] [facility] [place] [address] Care Team Providers Care Insurance Special Agent Name Role Phone Zaheer Madden MD Primary Care Provider +1- [phone] Reason for Visit * Reason Comments Med Refill Encounter Details Date Type Department Care Team ([facility] st Contact Info) Description 02/14/[address] [facility] MED & PEDS [address] [place], [place] [phone] Zaheer Madden MD [address] [place] [address] Social History Tobacco Use Types Packs/Day Years [...] on filedocumented in this encounter Care Teams Insurance Special Agent Relationship Specialty Start Date End Date Zaheer Madden MD [address] [place] [address] PCP - General Internal Medicine 07/06/18 documented as of this encounter
--- OUTSIDE RECORDS SUMMARY | 2025-06-05 12:59 | XMS_ITS | Encounter Summary ---
Author Organization [employer] Address [address] [facility] 7t [place] [address] Care Team Providers Care Relationship Management Lead Name Role Phone Zaheer Madden MD Primary Care Provider +1- [phone] Reason for Visit * Reason Comments Med Change Request Encounter Details Date Type Department Care Team ([facility] st Contact Info) Description 08/04/2023 Refill [facility] MED & PEDS [address] [place], [place] [phone] Josephine Lynne MD [address] [place] [address] Social History Tobacco Use Types Packs/Day Years [...] on filedocumented in this encounter Care Teams Relationship Management Lead Relationship Specialty Start Date End Date Zaheer Madden MD [address] [place] [address] PCP - General Internal Medicine 07/06/18 documented as of this encounter
--- OUTSIDE RECORDS SUMMARY | 2025-06-05 12:59 | XMS_ITS | Encounter Summary ---
Author Organization [employer] Address [address] [facility] [address] 7[address] [place] [address] Care Team Providers Care Marbleizer Name Role Phone Zaheer Madden MD Primary Care Provider +1- [phone] Encounter Details Date Type Department Care Team ([facility] st Contact Info) Description 03/09/2024 Orders Only [facility] MED & PEDS [address] [place], [place] [phone] Provider, MD Familia Social History Tobacco Use [...] on filedocumented in this encounter Care Teams Marbleizer Relationship Specialty Start Date End Date Zaheer Madden MD [address] [place] [phone] PCP - General Internal Medicine 07/06/18 documented as of this encounter
--- OUTSIDE RECORDS SUMMARY | 2025-06-05 12:59 | XMS_ITS | Encounter Summary ---
Author Organization [employer] Address [address] [facility] [address] 7t [place] [address] Care Team Providers Care Shopping Inspector Name Role Phone Zaheer Maddne MD Primary Care Provider +1- [phone] Encounter Details Date Type Department Care Team ([facility] st Contact Info) Description 02/22/2024 Orders Only [facility] MED & PEDS [address] [place], [place] [phone] ProviderFamilia MD Social History Tobacco Use Types [...] on filedocumented in this encounter Care Teams Shopping Inspector Relationship Specialty Start Date End Date Zaheer Madden MD [address] [place] [phone] PCP - General Internal Medicine 07/06/18 documented as of this encounter
== END 2025-06-05 10:56 | disposition home or self-care (01) ==
LOC: HO.HGS 10:23
PROVIDERS: PCP Internal Medicine; Visit Provider Surgery
DX: K64.4 Residual hemorrhoidal skin tags (principal)
CPT/HCPCS: 99203

== ENCOUNTER → 2025-06-05 10:22 | Outpatient (BNVA) | payer OTHER, SELFPAY | PROVIDERS: PCP Internal Medicine; Visit Provider Surgery | DX: K64.4 Residual hemorrhoidal skin tags (principal) | CPT/HCPCS: 99202 ==